=== PATIENT | female | born 1975 | race Caucasian/White ===

== ENCOUNTER 2017-09-21 18:00 | Inpatient (IN) | payer SELFPAY ==
[~2017-09-21] VITALS: Ht 160 cm; Wt 47.6 kg
[~2017-09-21 18:00] MED LIST: CIPR500T4 PO; IBUP-1116 PO; PERC5TAB12 PO; ROBA750T3 PO
[2017-09-21 18:19] VITALS: BP 130/79; PULSE 135; RESP 22; TEMP 101.5; O2SAT 99
--- NOTE | 2017-09-21 19:40 | PD ---
HPI Chief Complaint: Fever Time Seen by Provider: 18:58 Travel History International Travel<30 days: No Contact w/Intl Traveler<30days: No Traveled to known affect area: No History of Present Illness HPI 41-year-old female complains of headache, body ache, nausea vomiting diarrhea, poor appetite, left knee pain and fever. Patient has history of IV drug abuse including Dilaudid and cocaine. Last IV Dilaudid was last night and cocaine was today. Patient states that she uses all the sites in her body including neck, arms and legs. Patient states that she started having fever the past 3 days. Patient states that she has aching headache over the head. Patient denies any visual change. Recent complaint of back or neck pain. Patient denies any stiff neck. Patient denies any coughing congestion. Patient states that she had intermittent nausea vomiting diarrhea. Patient states that she has poor appetite over the last few days. Patient complained of sharp knee pain for the past 2 days. Patient denies any injury to the left knee. Patient has been taking aspirin and ibuprofen for pain and fever. [facility] Past Medical History Anxiety: Yes Depression: Yes Diminished Hearing: No ?: Not LMP: 2017 Social History Alcohol Use: No Tobacco Use: Yes (PACK A DAY ) Substance Use: Yes (IDU- COCAINE, DILAUDID ) Allergies-Medications (Allergen,Severity, Reaction): Coded Allergies: No Known Allergies (Unverified Allergy, Unknown, 09/21/17) Reported Meds & Prescriptions Reported Meds & Active Scripts Active Review of Systems General / Constitutional: Positive: Fever Eyes: No: Visual changes HENT: Positive: Headaches, Neck Pain Cardiovascular: No: Chest Pain or Discomfort Respiratory: No: Shortness of Breath Gastrointestinal: No: Abdominal Pain Genitourinary: No: Dysuria Musculoskeletal: Positive: Pain Skin: No Rash Neurologic: No: Weakness Psychiatric: No: Depression Endocrine: No: Polydipsia Hematologic/Lymphatic: No: Easy Bruising Physical Exam Narrative GENERAL: Well-nourished, well-developed patient. SKIN: Focused skin assessment warm/dry. Multiple redness areas of the arms and legs. No induration. HEAD: Normocephalic. EYES: No scleral icterus. No injection or drainage. NECK: Supple, trachea midline. No JVD or lymphadenopathy. No meningismus CARDIOVASCULAR: Regular rate and rhythm without murmurs, gallops, or rubs. RESPIRATORY: Breath sounds equal bilaterally. No accessory muscle use. GASTROINTESTINAL: Abdomen soft, non-tender, nondistended. MUSCULOSKELETAL: Patient has moderate to severe tenderness diffuse over the left knee joint. Limited range of motion of left knee joint secondary to pain. Patient has an area of redness medial aspect the left knee joint. Moderate effusion noted. BACK: Nontender without obvious deformity. No CVA tenderness. Neurologic exam: Patient is awake alert oriented 3. No obvious focal neurological deficit. Data Data Last Documented VS Vital Signs Date Time Temp Pulse Resp B/P (MAP) Pulse Ox O2 Delivery O2 Flow Rate FiO2 09/21/17 20:28 90 16 106/66 (79) 100 09/21/17 18:19 101.5 Orders Orders Electrocardiogram (09/21/17 19:12) Complete Blood Count With Diff (09/21/17 19:12) Comprehensive Metabolic Panel (09/21/17 19:12) Creatine Kinase (Cpk) (09/21/17 19:12) Troponin I (09/21/17 19:12) Prothrombin Time / Inr (Pt) (09/21/17 19:12) Act Partial Throm Time (Ptt) (09/21/17 19:12) Blood Culture (09/21/17 19:12) C-Reactive Protein (Crp) (09/21/17 19:12) Lipase (09/21/17 19:12) Urinalysis - C+S If Indicated (09/21/17 19:12) Westergren Sedimentation Rate (09/21/17 19:12) Thyroid Stimulating Hormone (09/21/17 19:12) Chest, Single Ap (09/21/17 19:12) Iv Access Insert/Monitor (09/21/17 19:12) Ecg Monitoring (09/21/17 19:12) Oximetry (09/21/17 19:12) Ed Urine Pregnancytest Poc (09/21/17 19:12) Drug Screen, Random Urine (09/21/17 19:12) Lactic Acid (09/21/17 19:12) Knee, Ltd (1 Or 2vws) (09/21/17 19:17) Ct Brain W/O Iv Contrast(Rout) (09/21/17 19:33) Sodium Chlor 0.9% 1000 Ml Inj (Ns 1000 M (09/21/17 19:45) Vancomycin Inj (Vancomycin Inj) (09/21/17 19:45) Piperacil-Tazo 3.375 Gm Premix (Zosyn 3. (09/21/17 19:45) Ketorolac Inj (Toradol Inj) (09/21/17 20:15) Diphenhydramine Inj (Benadryl Inj) (09/21/17 20:15) CKMB (09/21/17 19:25) CKMB% (09/21/17 19:25) Potassium Chloride (Kcl) (09/21/17 21:00) Ns + Kcl 20 Meq Inj (Ns + Kcl 20 Meq Inj (09/21/17 21:00) Lidocai-Epi 1%-1:100,000 Inj (Xylocaine- (09/21/17 21:00) Electrocardiogram (09/21/17 ) Synovial Fl Cell Count + Diff (09/21/17 21:29) Synovial Fluid Crystals (09/21/17 21:29) Fluid Culture And Gram Stain (09/21/17 21:29) Lidocai-Epi 1%-1:100,000 Inj (Xylocaine- (09/21/17 21:45) Lidocai-Epi 1%-1:100,000 Inj (Xylocaine- (09/21/17 21:35) Admit To Inpatient (09/21/17 ) Vital Signs (Adult) Q4H (09/21/17 22:18) Activity Oob With Assistance (09/21/17 22:18) Chief Clerk Shelter / Telemetry .CONTINUOUS (09/21/17:18) Intake + Output CAMPOS.QSHIFT (09/21/17 22:18) Diet Heart Healthy (09/22/17 Breakfast) Sodium Chlor 0.9% 1000 Ml Inj (Ns 1000 M (09/21/17 22:18) Sodium Chloride 0.9% Flush (Ns Flush) (09/21/17 22:30) Sodium Chloride 0.9% Flush (Ns Flush) (09/22/17 09:00) Ondansetron Inj (Zofran Inj) (09/21/17 22:30) Comprehensive Metabolic Panel (09/22/17 06:00) Complete Blood Count With Diff (09/22/17 06:00) Creatine Kinase (Cpk) (09/22/17 00:00) Creatine Kinase (Cpk) (09/22/17 06:00) Troponin I (09/22/17 00:00) Troponin I (09/22/17 06:00) Pt Request For Service (09/21/17 22:18) Case Management Consult (09/21/17 22:18) Scd Bilateral/Knee High CAMPOS.BID (09/21/17 22:18) Oral Bilateral/Knee High CAMPOS.QSHIFT (09/21/17 22:21) Acetaminophen (Tylenol) (09/21/17 22:30) Oxycodone (Roxicodone) (09/21/17 22:30) Oxycodone (Roxicodone) (09/21/17 22:30) Docusate Sodium-Senna (Silvia-Colace) (09/22/17 09:00) Magnesium Hydroxide Liq (Milk Of Magnesi (09/21/17 22:30) Sennosides (Senokot) (09/21/17 22:30) Bisacodyl Supp (Dulcolax Supp) (09/21/17 22:30) Lactulose Liq (Lactulose Liq) (09/21/17 22:30) Inpatient Certification (09/21/17 ) Lactic Acid (09/22/17 00:00) Admit Order (Ed Use Only) (09/21/17 22:19) Labs Laboratory Tests Test 09/21/17 19:25 09/21/17 19:35 White Blood Count 9.9 TH/MM3 Red Blood Count 4.43 MIL/MM3 Hemoglobin 11.1 GM/DL Hematocrit 32.9 % Mean Corpuscular Volume 74.3 FL Mean Corpuscular Hemoglobin 25.1 PG Mean Corpuscular Hemoglobin Concent 33.7 % Red Cell Distribution Width 14.1 % Platelet Count 201 TH/MM3 Mean Platelet Volume 9.0 FL Neutrophils (%) (Auto) 88.2 % Lymphocytes (%) (Auto) 7.4 % Monocytes (%) (Auto) 4.2 % Eosinophils (%) (Auto) 0.0 % Basophils (%) (Auto) 0.2 % Neutrophils # (Auto) 8.7 TH/MM3 Lymphocytes # (Auto) 0.7 TH/MM3 Monocytes # (Auto) 0.4 TH/MM3 Eosinophils # (Auto) 0.0 TH/MM3 Basophils # (Auto) 0.0 TH/MM3 CBC Comment DIFF FINAL Differential Comment Erythrocyte Sedimentation Rate 78 mm/hr Prothrombin Time 12.7 SEC Prothromb Time International Ratio 1.3 RATIO Activated Partial Thromboplast Time 29.9 SEC Blood Urea Nitrogen 18 MG/DL Creatinine 1.32 MG/DL Random Glucose 118 MG/DL Total Protein 8.2 GM/DL Albumin 2.4 GM/DL Calcium Level 7.9 MG/DL Alkaline Phosphatase 88 U/L Aspartate Amino Transf (AST/SGOT) 103 U/L Alanine Aminotransferase (ALT/SGPT) 40 U/L Total Bilirubin 0.5 MG/DL Sodium Level 121 MEQ/L Potassium Level 3.1 MEQ/L Chloride Level 83 MEQ/L Carbon Dioxide Level 26.7 MEQ/L Anion Gap 11 MEQ/L Estimat Glomerular Filtration Rate 45 ML/MIN Lactic Acid Level 2.8 mmol/L Total Creatine Kinase 1479 U/L Creatine Kinase MB 13.4 NG/ML Creatine Kinase MB % 0.9 % Troponin I 1.41 NG/ML C-Reactive Protein 18.00 MG/DL Lipase 285 U/L Thyroid Stimulating Hormone 3rd Gen 0.570 uIU/ML Urine Color LIGHT-YELLOW Urine Turbidity CLEAR Urine pH 6.0 Urine Specific [place] 1.005 Urine Protein TRACE mg/dL Urine Glucose (UA) NEG mg/dL Urine Ketones NEG mg/dL Urine Occult Blood SMALL Urine Nitrite NEG Urine Bilirubin NEG Urine Urobilinogen LESS THAN 2.0 MG/DL Urine Leukocyte Esterase NEG Urine RBC LESS THAN 1 /hpf Urine WBC 1 /hpf Urine Squamous Epithelial Cells 1 /hpf Urine Amorphous Sediment RARE Microscopic Urinalysis Comment CULT NOT INDICATED Urine Opiates Screen NEG Urine Barbiturates Screen NEG Urine Amphetamines Screen NEG Urine Benzodiazepines Screen NEG Urine Cocaine Screen POS Urine Cannabinoids Screen NEG MDM Medical Decision Making Medical Screen Exam Complete: Yes Emergency Medical Condition: Yes Interpretation(s) 2016 p.m. EKG show sinus tachycardia rate 105. Last Impressions Head CT 09/21/171932 Signed Impressions: Service Date/Time: Thursday, September 21, 2017 19:53 - CONCLUSION: No acute disease. Ethan Salas MD Knee X-Ray 09/21/[id number] Signed Impressions: Service Date/Time: Thursday, September 21, 2017 19:20 - CONCLUSION: Small suprapatellar knee joint effusion. Ethan Salas MD Chest X-Ray 09/21/[id number] Signed Impressions: Service Date/Time: Thursday, September 21, 2017 19:17 - CONCLUSION: No acute disease. Ethan Salas MD 2028 PM. CBC WBC 9.9. Hemoglobin 11.1 hematocrit 32.9. 88 neutrophil. Lactic acid 2.8. INR 1.3. Urine drug screen positive for cocaine. UA is negative. 2047 PM. Sodium 121. Potassium 3.1. Chloride 83. Bicarb 26.7. Creatinine 1.32. GFR 45. Lactic acid 2.8. Calcium 7.9. AST 103. Troponin 1.41. C- reactive protein 18. Drug screen positive for cocaine. 21:27 PM. Sed rate 78. Differential Diagnosis Differential diagnosis including infected lesions, septic joint, endocarditis, pneumonia, UTI, sepsis. Narrative Course 41-year-old female complains of fever, headache, neck pain, body ache, nausea vomiting diarrhea, left knee pain, body ache. History IV drug abuse. Normal saline solution 1 L IV bolus. Vancomycin 1 g IV. Zosyn 3.375 g IV. Normal saline solution with 20 KCl per liter at 1 25 cc an hour. KCl 40 mg p.o. given. I spoke with Commercial Fishing Vessel Operator to Dr. Garcia, orthopedist. I spoke with Dr. Reyes, armature connector steel division supervisor. Diagnosis Primary Impression: Septic arthritis of knee, left Qualified Codes: M00.9 - Pyogenic arthritis, unspecified Additional Impressions: Hyponatremia Hypokalemia Elevated troponin Rhabdomyolysis Qualified Codes: M62.82 - Rhabdomyolysis Sepsis Qualified Codes: A41.9 - Sepsis, unspecified organism John Mendosa MD September 21, 2017 19:40
--- NOTE | 2017-09-21 19:41 | RADRPT ---
EXAM DATE/TIME: 09/21/2017 19:17 [facility] COMPARISON: No previous studies available for comparison. INDICATIONS : Fever. MEDICAL HISTORY : Substance abuse, prior skull fracture. SURGICAL HISTORY : None. ENCOUNTER: Initial ACUITY: 1 day PAIN SCORE: 5/10 LOCATION: Bilateral chest FINDINGS: A single view of the chest demonstrates the lungs to be symmetrically aerated without evidence of mas s, infiltrate or effusion. The cardiomediastinal contours are unremarkable. Osseous structures are intact. CONCLUSION: No acute disease. Ethan Salas MD on September 21, 2017 at 19:38 Board Certified Radiologist. This report was verified electronically.
[2017-09-21] MEDS ORDERED: SODIUM CHLOR 0.9% 1000 ML INJ 1,000 ML IV ONE (19:45)
[2017-09-21] MEDS ORDERED: PIPERACIL-TAZO 3.375 GM PREMIX 50 ML IV ONE (19:45)
[2017-09-21] MEDS ORDERED: VANCOMYCIN INJ 1,000 MG in SODIUM CHLOR 0.9% 250 ML INJ 250 ML IV ONE (19:45)
--- NOTE | 2017-09-21 19:50 | RADRPT ---
EXAM DATE/TIME: 09/21/2017 19:20 [facility] COMPARISON: No previous studies available for comparison. INDICATIONS : Left knee pain. Redness of medial side of knee. MEDICAL HISTORY : Substance abuse, prior skull fracture. SURGICAL HISTORY : None. ENCOUNTER: Initial ACUITY: 3 days PAIN SCORE: 10/10 LOCATION: Left knee. FINDINGS: There is a small suprapatellar knee joint effusion. There is no acute fracture or dislocation. No sig nificant arthritic changes are noted. CONCLUSION: Small suprapatellar knee joint effusion. Ethan Salas MD on September 21, 2017 at 19:48 Board Certified Radiologist. This report was verified electronically.
--- NOTE | 2017-09-21 20:03 | RADRPT ---
EXAM DATE/TIME: 09/21/2017 19:53 [facility] COMPARISON: CT BRAIN W/O CONTRAST, March 26, 2016, 4:07. INDICATIONS : Cephalgia for three days. RADIATION DOSE: 34.94 CTDIvol (mGy) MEDICAL HISTORY : previous skull fracture SURGICAL HISTORY : None. ENCOUNTER: Initial ACUITY: 3 days PAIN SCALE: 8/10 LOCATION: Bilateral head TECHNIQUE: Multiple contiguous axial images were obtained of the head. Using automated exposure control and adj ustment of the mA and/or kV according to patient size, radiation dose was kept as low as reasonably a chievable to obtain optimal diagnostic quality images. DICOM format image data is available electro nically for review and comparison. FINDINGS: CEREBRUM: The ventricles are normal for age. No evidence of midline shift, mass lesion, hemorrhage or acute in farction. No extra-axial fluid collections are seen. POSTERIOR FOSSA: The cerebellum and brainstem are intact. The 4th ventricle is midline. The cerebellopontine angle i s unremarkable. EXTRACRANIAL: The visualized portion of the orbits is intact. SKULL: The calvaria is intact. No evidence of skull fracture. CONCLUSION: No acute disease. Ethan Salas MD on September 21, 2017 at 20:00 Board Certified Radiologist. This report was verified electronically.
[2017-09-21 20:05] LABS: AMORPHOUS SEDIMENT, URINE RARE; BILIRUBIN, URINE NEG (NEG); BLOOD, URINE SMALL (NEG); GLUCOSE,URINE NEG (NEG); KETONE, URINE NEG (NEG); NITRITE,URINE NEG (NEG); SQUAMOUS EPITHELIAL CELL URINE 1 /hpf (0-5); URINE COLOR LIGHT-YELLOW (YELLW/STRAW); URINE LEUKOCYTE ESTERASE NEG (NEG)
[2017-09-21] MEDS ORDERED: KETOROLAC TROMETHAMINE 30 MG/ML (IVP) VIAL IV PUSH ONE (20:15)
[2017-09-21] MEDS ORDERED: diphenhydrAMINE HCL 50 MG/ML VIAL IV PUSH ONE (20:15)
[2017-09-21 20:16] LABS: INTERNATIONAL NORMALIZED RATIO 1.3 RATIO; PROTHROMBIN TIME - PATIENT 12.7 SEC (9.8-11.6)
[2017-09-21 20:19] LABS: ALBUMIN 2.4 GM/DL (3.4-5.0); ALT (GPT) 40 U/L (10-53); AST (GOT) 103 U/L (15-37); BICARBONATE 26.7 MEQ/L (21.0-32.0); BLOOD UREA NITROGEN 18 MG/DL (7-18); CALCIUM 7.9 MG/DL (8.5-10.1); CHLORIDE 83 MEQ/L (98-107); CREATININE 1.32 MG/DL (0.50-1.00); GLOMERULAR FILTRATION RATE 45 ML/MIN (>89); GLUCOSE,RANDOM 118 MG/DL (74-106)
[2017-09-21 20:20] LABS: AUTOMATED NEUTROPHIL # 8.7 TH/MM3 (1.8-7.7); BASOPHIL % 0.2 % (0.0-2.0); HEMATOCRIT 32.9 % (35.0-46.0); HEMOGLOBIN 11.1 GM/DL (11.6-15.3); LYMPH % 7.4 % (9.0-44.0); LYMPHOCYTE # 0.7 TH/MM3 (1.0-4.8); MEAN CELL VOLUME 74.3 FL (80.0-100.0); MEAN CORPUSCULAR HEMOGLOBIN 25.1 PG (27.0-34.0); MEAN CORPUSCULAR HGB CONC 33.7 % (32.0-36.0); MONO % 4.2 % (0.0-8.0); MONOCYTE # 0.4 TH/MM3 (0-0.9); NEUT % 88.2 % (16.0-70.0); PLATELET COUNT 201 TH/MM3 (150-450); RED BLOOD COUNT 4.43 MIL/MM3 (4.00-5.30); RED CELL DISTRIBUTION WIDTH 14.1 % (11.6-17.2); WHITE BLOOD COUNT 9.9 TH/MM3 (4.0-11.0)
[2017-09-21 20:28] VITALS: BP 106/66; PULSE 90; RESP 16; O2SAT 100
[2017-09-21 20:34] LABS: ALKALINE PHOSPHATASE 88 U/L (45-117); TOTAL BILIRUBIN ADULT 0.5 MG/DL (0.2-1.0); TOTAL PROTEIN 8.2 GM/DL (6.4-8.2)
[2017-09-21 20:42] LABS: SODIUM (NA) 121 MEQ/L (136-145); TROPONIN I 1.41 NG/ML (0.02-0.05)
[2017-09-21] MEDS ORDERED: POTASSIUM CHLORIDE 20 MEQ CONTROLLED RELEASE TAB PO ONE (21:00)
[2017-09-21] MEDS ORDERED: LIDOCAINE 1%/EPINEPHrine 1:100,000 SOLN 20 ML VIAL INFIL ONE ×2 (21:00→21:45)
[2017-09-21] MEDS ORDERED: LIDOCAINE 1%/EPINEPHrine 1:100,000 SOLN 30 ML VIAL ONE (21:35)
[2017-09-21] MEDS: NS + KCL 20 MEQ INJ 1,000 ML IV SCH (21:59)
--- NOTE | 2017-09-21 22:21 | HHI.HP ---
[facility] No Primary Care Physician Admission Diagnosis Diagnoses: (1) Sepsis Diagnosis: Principal (2) Septic arthritis of knee, left Diagnosis: Principal (3) Elevated troponin Diagnosis: Principal (4) Rhabdomyolysis Diagnosis: Principal (5) Hyponatremia Diagnosis: Principal (6) ANDRZEJ (acute kidney injury) Diagnosis: Principal (7) IVDU (intravenous drug user) Diagnosis: Principal Travel History International Travel<30 Days: No Contact w/Intl Traveler <30 Da: No Traveled to Known Affected Are: No History of Present Illness This is a 49-year-old female with a PMH of Tobacco Abuse and IVDU w/ Cocaine/ Dilaudid who presented to the ER w/ complaints of left knee pain, generalized malaise and fever. Admits to ongoing IVDU w/ Cocaine/Dilaudid. States left knee pain is constant, severe, 10/10, non-radiating, worse w/ movement. Demanding pain medication while in ER. On arrival, BP 130/79, HR 135, O2 sat 99 % on RA, Temp 101.5. WBC normal however elevated neutrophil count. Na 121. Creatinine 1.32, previously 0.81 on 03/25/2016. Lactic Acid 2.8. CPK 1479. Troponin 1.41. CRP 18. INR 1.3. UA negative. Urine Drug Screen positive for Cocaine. CT Head with no acute findings. Knee X-ray with small suprapatellar knee joint effusion. CXR with no acute findings. S/p knee joint aspiration in ER, noted to have purulent/cloudy drainage. S/p Vanc/Zosyn. Ortho/Cardiology consulted. No c/o chest pain or SOB Review of Systems Except as stated in HPI: all other systems reviewed are Neg ROS: 14 point review of systems otherwise negative. Past Family Social History Past Medical History PMH: Tobacco Abuse and IVDU w/ Cocaine/Dilaudid Past Surgical History PAST SURGICAL HISTORY: Left Hand Repair Allergies: Coded Allergies: No Known Allergies (Unverified Allergy, Unknown, 09/21/17) Family History PAST FAMILY HISTORY: Reviewed. No h/o DM or CAD Social History PAST SOCIAL HISTORY: Negative for alcohol. Smokes 1ppd. +IVDU Cocaine/ Dilaudid. Physical Exam Vital Signs Vital Signs Date Time Temp Pulse Resp B/P (MAP) Pulse Ox O2 Delivery O2 Flow Rate FiO2 09/21/17 20:28 90 16 106/66 (79) 100 09/21/17 18:19 101.5 135 22 130/79 (96) 99 Physical Exam PE: GENERAL: Middle-aged female who appears significantly older than stated age, restless, agitated, angry. HEENT: PERRLA, EOMI. No scleral icterus or conjunctival pallor. No lid lag or facial droop. CARDIOVASCULAR: Regular rate and rhythm. No obvious murmurs to auscultation. No chest tenderness to palpation. RESPIRATORY: No obvious rhonchi or wheezing. Clear to auscultation. Breath sounds equal bilaterally. GASTROINTESTINAL: Abdomen soft, non-tender, nondistended. BS normal. MUSCULOSKELETAL: Extremities without clubbing, cyanosis, or edema. No obvious deformities. Left knee w/ erythema/edema, decreased ROM of LLE due to pain. NEUROLOGICAL: Awake, alert and oriented x4. No focal neurologic deficits. Moving both upper and lower extremities spontaneously. Laboratory Laboratory Tests Test 09/21/17 19:25 09/21/17 19:35 White Blood Count 9.9 Red Blood Count 4.43 Hemoglobin 11.1 Hematocrit 32.9 Mean Corpuscular Volume 74.3 Mean Corpuscular Hemoglobin 25.1 Mean Corpuscular Hemoglobin Concent 33.7 Red Cell Distribution Width 14.1 Platelet Count 201 Mean Platelet Volume 9.0 Neutrophils (%) (Auto) 88.2 Lymphocytes (%) (Auto) 7.4 Monocytes (%) (Auto) 4.2 Eosinophils (%) (Auto) 0.0 Basophils (%) (Auto) 0.2 Neutrophils # (Auto) 8.7 Lymphocytes # (Auto) 0.7 Monocytes # (Auto) 0.4 Eosinophils # (Auto) 0.0 Basophils # (Auto) 0.0 CBC Comment DIFF FINAL Differential Comment Erythrocyte Sedimentation Rate 78 Prothrombin Time 12.7 Prothromb Time International Ratio 1.3 Activated Partial Thromboplast Time 29.9 Blood Urea Nitrogen 18 Creatinine 1.32 Random Glucose 118 Total Protein 8.2 Albumin 2.4 Calcium Level 7.9 Alkaline Phosphatase 88 Aspartate Amino Transf (AST/SGOT) 103 Alanine Aminotransferase (ALT/SGPT) 40 Total Bilirubin 0.5 Sodium Level 121 Potassium Level 3.1 Chloride Level 83 Carbon Dioxide Level 26.7 Anion Gap 11 Estimat Glomerular Filtration Rate 45 Lactic Acid Level 2.8 Total Creatine Kinase 1479 Creatine Kinase MB 13.4 Creatine Kinase MB % 0.9 Troponin I 1.41 C-Reactive Protein 18.00 Lipase 285 Thyroid Stimulating Hormone 3rd Gen 0.570 Urine Color LIGHT-YELLOW Urine Turbidity CLEAR Urine pH 6.0 Urine Specific [place] 1.005 Urine Protein TRACE Urine Glucose (UA) NEG Urine Ketones NEG Urine Occult Blood SMALL Urine Nitrite NEG Urine Bilirubin NEG Urine Urobilinogen LESS THAN 2.0 Urine Leukocyte Esterase NEG Urine RBC LESS THAN 1 Urine WBC 1 Urine Squamous Epithelial Cells 1 Urine Amorphous Sediment RARE Microscopic Urinalysis Comment CULT NOT INDICATED Urine Opiates Screen NEG Urine Barbiturates Screen NEG Urine Amphetamines Screen NEG Urine Benzodiazepines Screen NEG Urine Cocaine Screen POS Urine Cannabinoids Screen NEG Date/Time Source Procedure Growth Status 09/21/17 19:25 Blood Peripheral Aerobic Blood Culture Pending Received 09/21/17 19:25 Blood Peripheral Anaerobic Blood Culture Pending Received Result Diagram: 09/21/17192409/21/171924 Caprini VTE Risk Assessment Caprini VTE Risk Assessment: No/Low Risk (score <= 1) Caprini Risk Assessment Model Point Value = 1 Point Value = 2 Point Value = 3 Point Value = 5 Age 41-60 Minor surgery BMI > 25 kg/m2 Swollen legs Varicose veins or History of unexplained or recurrent spontaneous Oral contraceptives or hormone replacement Sepsis (< 1 month) Serious lung disease, including pneumonia (< 1 month) Abnormal pulmonary function Acute myocardial infarction Congestive heart failure (< 1 month) History of inflammatory bowel disease Medical patient at bed rest Age 61-74 Arthroscopic surgery Major open surgery (> 45 min) Laparoscopic surgery (> 45 min) Malignancy Confined to bed (> 72 hours) Immobilizing plaster cast Central venous access Age >= 75 History of VTE Family history of VTE Factor V Leiden Prothrombin [id number] Lupus anticoagulant Anticardiolipin antibodies Elevated serum homocysteine Heparin-induced thrombocytopenia Other congenital or acquired thrombophilia Stroke (< 1 month) Elective arthroplasty Hip, pelvis, or leg fracture Acute spinal cord injury (< 1 month) Prophylaxis Regimen Total Risk Factor Score Risk Level Prophylaxis Regimen 0-1 Low Early ambulation 2 Moderate Order ONE of the following: *Sequential Compression Device (SCD) *Heparin 5000 units SQ BID 3-4 Higher Order ONE of the following medications: *Heparin 5000 units SQ TID *Enoxaparin/Lovenox 40 mg SQ daily (WT < 150 kg, CrCl > 30 mL/min) *Enoxaparin/Lovenox 30 mg SQ daily (WT < 150 kg, CrCl > 10-29 mL/min) *Enoxaparin/Lovenox 30 mg SQ BID (WT < 150 kg, CrCl > 30 mL/min) AND/OR *Sequential Compression Device (SCD) 5 or more Highest Order ONE of the following medications: *Heparin 5000 units SQ TID (Preferred with Epidurals) *Enoxaparin/Lovenox 40 mg SQ daily (WT < 150 kg, CrCl > 30 mL/min) *Enoxaparin/Lovenox 30 mg SQ daily (WT < 150 kg, CrCl > 10-29 mL/min) *Enoxaparin/Lovenox 30 mg SQ BID (WT < 150 kg, CrCl > 30 mL/min) AND *Sequential Compression Device (SCD) Assessment and Plan Problem List: (1) Sepsis ICD Code: A41.9 - Sepsis, unspecified organism Status: Acute (2) Septic arthritis of knee, left ICD Code: M00.9 - Pyogenic arthritis, unspecified Status: Acute (3) Elevated troponin ICD Code: R74.8 - Abnormal levels of other serum enzymes Status: Acute (4) Rhabdomyolysis ICD Code: M62.82 - Rhabdomyolysis Status: Acute (5) Hyponatremia ICD Code: E87.1 - Hypo-osmolality and hyponatremia Status: Acute (6) ANDRZEJ (acute kidney injury) ICD Code: N17.9 - Acute kidney failure, unspecified (7) IVDU (intravenous drug user) ICD Code: F19.90 - Other psychoactive substance use, unspecified, uncomplicated Assessment and Plan A/P: 1. Sepsis: Temp 101.5, HR 135, Lactic Acid 2.8, Source-Septic Knee Joint. S/ p Blood Cultures, IV Vanc/Zosyn, continue IV Abx, follow up cultures, check repeat Lactic Acid. IVF 2. Left Knee Septic Joint: +erythema/edema, X-ray w/ small suprapatellar knee joint effusion, images reviewed by me, s/p knee joint aspiration in ER, + purulent drainage noted. Continue w/ treatment as above. Ortho consulted by ER physician. Will keep NPO for likely surgical intervention in am. 3. Elevated Trop: Trop 1.41, no acute EKG changes, no c/o chest pain, likely related to underlying Cocaine Abuse. Cardiology consulted, recommend to trend enzymes. Telemetry. Check serial cardiac enzymes for trend. Check Echo to eval for possible underlying endocarditis/myocarditis. 4. Rhabdomyolysis: CPK 1479, IVF for hydration, check repeat CPK for trend. 5. ANDRZEJ: Creatinine 1.32, previously 0.81 on 03/25/16. U/a negative for UTI. + Cocaine. IVF, repeat labs in am. 6. Hyponatremia: Na 121, likely due to dehydration, IVF, repeat labs. 7. IVDU: Pt counselled. Demanding pain medication. Ativan prn for withdrawal. 8. DVT Prophylaxis: SCD/Teds 9. Social work for d/c planning as needed. 10. Case discussed w/ ER physician at length, labs/records/imaging reviewed by me. Physician Certification 2 Midnight Certification Type: Admission for Inpatient Services Order for Inpatient Services The services are ordered in accordance with Medicare regulations or non- Medicare payer requirements, as applicable. In the case of services not specified as inpatient-only, they are appropriately provided as inpatient services in accordance with the 2-midnight benchmark. Estimated LOS (days): 2 days is the estimated time the patient will need to remain in the hospital, assuming treatment plan goals are met and no additional complications. Post-Hospital Plan: Not yet determined Problem Qualifiers (1) Sepsis: Qualified Codes: A41.9 - Sepsis, unspecified organism (2) Septic arthritis of knee, left: Qualified Codes: M00.9 - Pyogenic arthritis, unspecified (3) Rhabdomyolysis: Qualified Codes: M62.82 - Rhabdomyolysis Deanne Hubbard MD September 21, 2017 22:21
[2017-09-21] MEDS ORDERED: LACTULOSE SYRUP 20 GM/30 ML CUP PO PRN (22:30)
[2017-09-21] MEDS ORDERED: SODIUM CHLORIDE 0.9% FLUSH 10 ML FLUSH IV FLUSH PRN (22:30)
[2017-09-21] MEDS ORDERED: MAGNESIUM HYDROXIDE SUSP 30 ML CUP PO PRN (22:30)
[2017-09-21] MEDS ORDERED: SENNOSIDES 8.6 MG TAB PO PRN (22:30)
[2017-09-21] MEDS ORDERED: ONDANSETRON HCL 4 MG/2 ML VIAL IVP PRN (22:30)
[2017-09-21] MEDS ORDERED: BISACODYL 10 MG SUPP RECTAL PRN (22:30)
[2017-09-21] MEDS ORDERED: LORazepam 2 MG/ML VIAL IV PUSH ONE (22:45)
[2017-09-21] MEDS: SODIUM CHLOR 0.9% 1000 ML INJ 1,000 ML IV SCH (22:50)
[2017-09-22] VITALS (20 sets, daily range): BP systolic 96–147; BP diastolic 62–86; PULSE 77–122; RESP 17–36; TEMP 97.3–102.8; O2SAT 96–100
[2017-09-22 01:22] LABS: WBC, SYNOVIAL FLUID 29700 /MM3 (0-200)
[2017-09-22] MEDS: LORazepam 2 MG/ML VIAL IV PUSH PRN ×5 (02:12→22:02)
[2017-09-22] MEDS: NS + KCL 20 MEQ INJ 1,000 ML IV SCH ×3 (02:17→21:00)
[2017-09-22 03:22] LABS: AUTOMATED NEUTROPHIL # 6.1 TH/MM3 (1.8-7.7); BASOPHIL % 0.2 % (0.0-2.0); EOSINOPHIL % 0.6 % (0.0-4.0); HEMATOCRIT 31.1 % (35.0-46.0); HEMOGLOBIN 10.3 GM/DL (11.6-15.3); LYMPH % 10.2 % (9.0-44.0); LYMPHOCYTE # 0.8 TH/MM3 (1.0-4.8); MEAN CELL VOLUME 74.8 FL (80.0-100.0); MEAN CORPUSCULAR HEMOGLOBIN 24.8 PG (27.0-34.0); MEAN CORPUSCULAR HGB CONC 33.2 % (32.0-36.0); MEAN PLATELET VOLUME 8.7 FL (7.0-11.0); MONO % 8.2 % (0.0-8.0); MONOCYTE # 0.6 TH/MM3 (0-0.9); NEUT % 80.8 % (16.0-70.0); PLATELET COUNT 154 TH/MM3 (150-450); RED BLOOD COUNT 4.15 MIL/MM3 (4.00-5.30); RED CELL DISTRIBUTION WIDTH 13.9 % (11.6-17.2); WHITE BLOOD COUNT 7.5 TH/MM3 (4.0-11.0)
[2017-09-22 04:06] LABS: ALBUMIN 1.9 GM/DL (3.4-5.0); CALCIUM 7.4 MG/DL (8.5-10.1); CALCIUM-PROTEIN CORRECTED 7.6 MG/DL (8.5-10.1); CREATININE 1.05 MG/DL (0.50-1.00); TOTAL BILIRUBIN ADULT 0.3 MG/DL (0.2-1.0); TOTAL PROTEIN 6.8 GM/DL (6.4-8.2)
[2017-09-22 04:09] LABS: TROPONIN I 1.19 NG/ML (0.02-0.05)
[2017-09-22] MEDS ORDERED: GENTAMICIN SULFATE 80 MG/2 ML VIAL ONE (07:24)
[2017-09-22] MEDS ORDERED: VANCOMYCIN HCL 1000 MG VIAL ONE (07:24)
[2017-09-22] MEDS ORDERED: ceFAZolin 2 GM PREMIX 50 ML ONE (07:24)
[2017-09-22] MEDS: SODIUM CHLOR 0.9% 1000 ML INJ 1,000 ML IV SCH ×2 (08:18→18:18)
--- NOTE | 2017-09-22 08:32 | HHI.PR ---
Subjective Remarks Patient is seen bed she is sleeping on and off, moaning at times and agitated at times receiving Ativan. Not able to obtain IV, however patient has an IV now placed by vascular team with difficulty. Refusing to take medications by mouth however patient is not cooperative. Objective Vitals Vital Signs Date Time Temp Pulse Resp B/P (MAP) Pulse Ox O2 Delivery O2 Flow Rate FiO2 09/22/17 06:00 90 09/22/17 05:00 88 09/22/17 04:00 Room Air 09/22/17 04:00 99.5 86 22 111/67 (82) 96 09/22/17 04:00 86 09/22/17 03:00 85 09/22/17 02:00 77 09/22/17 01:00 79 09/22/17 00:10 09/22/17 00:00 80 09/22/17 00:00 99.0 80 22 96/62 (73) 97 09/21/17 20:28 90 16 106/66 (79) 100 09/21/17 18:19 101.5 135 22 130/79 (96) 99 I/O 09/21/17 09/21/17 09/21/17 09/22/17 09/22/17 09/22/17 07:00 15:00 23:00 07:00 15:00 23:00 Intake Total 500 ml Balance 500 ml Intake IV Total 500 ml # Voids 3 # Bowel Movements 3 Result Diagram: 09/22/17 0309 09/22/17 0309 Imaging Last Impressions Head CT 09/21/17 1933 Signed Impressions: Service Date/Time: Thursday, September 21, 2017 19:53 - CONCLUSION: No acute disease. Ethan Salas MD Knee X-Ray 09/21/171916 Signed Impressions: Service Date/Time: Thursday, September 21, 2017 19:20 - CONCLUSION: Small suprapatellar knee joint effusion. Ethan Salas MD Chest X-Ray 09/21/171911 Signed Impressions: Service Date/Time: Thursday, September 21, 2017 19:17 - CONCLUSION: No acute disease. Ethan Salas MD Objective Remarks GENERAL: Middle-aged female who appears significantly older than stated age, restless, agitated, angry, noncooperative. HEENT: PERRLA, EOMI. No scleral icterus or conjunctival pallor. No lid lag or facial droop. CARDIOVASCULAR: Regular rate and rhythm. No obvious murmurs to auscultation. No chest tenderness to palpation. RESPIRATORY: No obvious rhonchi or wheezing. Clear to auscultation. Breath sounds equal bilaterally. GASTROINTESTINAL: Abdomen soft, non-tender, nondistended. BS normal. MUSCULOSKELETAL: Extremities without clubbing, cyanosis, or edema. No obvious deformities. Left knee w/ erythema/edema, decreased ROM of LLE due to pain. NEUROLOGICAL: Awake, alert and oriented x4. No focal neurologic deficits. Moving both upper and lower extremities spontaneously. A/P Problem List: (1) Sepsis ICD Code: A41.9 - Sepsis, unspecified organism Status: Acute (2) Septic arthritis of knee, left ICD Code: M00.9 - Pyogenic arthritis, unspecified Status: Acute (3) Elevated troponin ICD Code: R74.8 - Abnormal levels of other serum enzymes Status: Acute (4) Rhabdomyolysis ICD Code: M62.82 - Rhabdomyolysis Status: Acute (5) Hyponatremia ICD Code: E87.1 - Hypo-osmolality and hyponatremia Status: Acute (6) ANDRZEJ (acute kidney injury) ICD Code: N17.9 - Acute kidney failure, unspecified (7) IVDU (intravenous drug user) ICD Code: F19.90 - Other psychoactive substance use, unspecified, uncomplicated Assessment and Plan Bacteremia/ sepsis on admission: Temp 101.5, HR 135, Lactic Acid 2.8, Source- Septic Knee Joint. S/p Blood Cultures, IV Vanc/Zosyn, continue IV Abx, follow up cultures, check repeat Lactic Acid back to normal. IVF Repeat blood cx Left Knee Septic Joint: +erythema/edema, X-ray with small suprapatellar knee joint effusion, images reviewed by me, s/p knee joint aspiration in ER, + purulent drainage noted. Continue w/ treatment as above. Ortho consulted by ER physician. Will keep NPO for likely surgical intervention in am. Agitation/ withdrawals. On ativan. Restraints Elevated Trop: Trop 1.41, no acute EKG changes, no c/o chest pain, likely related to underlying Cocaine Abuse. Cardiology consulted, recommend to trend enzymes. Telemetry. Check serial cardiac enzymes for trend. Check Echo to eval for possible underlying endocarditis/myocarditis. Rhabdomyolysis: CPK 1479, IVF for hydration, check repeat CPK for trend. ANDRZEJ: Creatinine 1.32, previously 0.81 on 03/25/16. U/a negative for UTI. + Cocaine. IVF, repeat labs in am. Hyponatremia: Na 121, likely due to dehydration, IVF, repeat labs. IVDU: Pt counselled. Demanding pain medication. Ativan prn for withdrawal. Severe protein calorie malnutrition low BMI, low albumin. Add ensure, MVT DVT Prophylaxis: SCD/Teds CM for d/c planning as needed. Discussed with pt nurse, Dr Knowles ID Problem Qualifiers (1) Sepsis: Qualified Codes: A41.9 - Sepsis, unspecified organism (2) Septic arthritis of knee, left: Qualified Codes: M00.9 - Pyogenic arthritis, unspecified (3) Rhabdomyolysis: Qualified Codes: M62.82 - Rhabdomyolysis Debby Rodas MD September 22, 2017 08:32
[2017-09-22] MEDS ORDERED: POTASSIUM CHLORIDE 20 MEQ CONTROLLED RELEASE TAB PO ONE (08:45)
[2017-09-22] MEDS ORDERED: CALCIUM GLUCONATE INJ 1 GM in DEXTROSE 5% IN WATER 100ML INJ 100 ML IV ONE ×2 (09:00)
[2017-09-22] MEDS: DOCUSATE SODIUM 50 MG/SENNA 8.6 MG TAB PO SCH ×2 (09:00→20:46)
[2017-09-22] MEDS: SODIUM CHLORIDE 0.9% FLUSH 10 ML FLUSH IV FLUSH SCH ×2 (09:00→20:46)
[2017-09-22] MEDS: MULTIVITAMIN TAB PO SCH (09:00)
[2017-09-22] MEDS: ASPIRIN EC 81 MG TABEC PO SCH (09:30)
--- NOTE | 2017-09-22 09:40 | MB ---
cc: Shady Reyes MD DATE: 09/22/2017 REASON FOR CONSULTATION: Elevated troponin, likely endocarditis. HISTORY OF PRESENT ILLNESS: The patient is a 41-year-old unfortunate woman who has a history of IVDU and presents with knee pain. The patient's blood cultures have come back positive for gram positive cocci and by history it is almost certain that she has endocarditis. The patient's troponins are also elevated. The patient is very agitated and alternates between refusing to speak to us and swearing/crying/acting out and agitated fashion and no history is obtainable. PAST MEDICAL HISTORY: IV drug use. PHYSICAL EXAMINATION: VITAL SIGNS: Temperature 101.5, pulse 90, respiratory rate 22, BP 111/57, sating 96% on room air. GENERAL: Cachectic woman appearing much older than her stated age, without teeth, generally consistent with chronic IV drug use. NECK: No JVD. LUNGS: Clear to auscultation bilaterally. The remainder of the exam had to be deferred due to the patient's significant agitation. CURRENT MEDICATIONS: IV Ativan. She has had 1 dose of cefazolin and vancomycin. ALLERGIES: NO KNOWN DRUG ALLERGIES. LABORATORY DATA: White count 7.5, hematocrit 31.1, platelets 154. Sodium 136, potassium 3.3, chloride 99, bicarbonate 29, BUN 17, creatinine 1.05. Troponin 1.41 down to 1.19 with elevated CK and CK-MBs as well. EKG shows sinus rhythm without any acute ST or T-wave changes. Head CT showed no acute disease. Knee x-ray shows a suprapatellar joint effusion. Chest x-ray showed no acute disease. ASSESSMENT AND PLAN: 1. Likely endocarditis with elevated troponin. The patient seems to have had a non-ST elevation ME at some point, though troponins are trending downward so it is difficult to know exactly when this happened. Her EKG is currently nonischemic. It is really difficult to tell if she has any ischemic symptoms due to her severe agitation, given her very poor mental status and very dismal prognosis at this point I would not consider her a candidate for invasive coronary intervention. 2. Sepsis, likely endocarditis. The patient almost certainly has endocarditis given what seems to be distal embolization of bacteria to the knee and her bacteremia. we can try to get a few pictures transthoracically if she remains still, but I would not consider her a candidate for ANNA due to her agitation. Unfortunately, the patient's prognosis is dismal given her ongoing drug use with what appears to be a disseminated bacteremia and probable endocarditis. I did ask Psychiatry to assess her competence as she cannot really tell us anything at this point. Likely she will need palliative care consult as well. Regardless, at this point I do not consider her a candidate for any invasive workup such as cardiac catheterization or transesophageal echocardiogram. I will sign off and be available as needed. Please call if her psychiatric or clinical condition changes. Thank you again for the opportunity to participate in the patient's care. MD NAI Ch/ZAKIYA , 09:17 AM , 09:39 AM
[2017-09-22] MEDS ORDERED: LORazepam 2 MG/ML VIAL IM ONE (10:15)
--- NOTE | 2017-09-22 10:18 | MB ---
cc: Josh Garcia MD DATE: 09/22/2017 CHIEF COMPLAINT: Left knee pain CONSULTING PHYSICIAN: Dr. uHbbard. HISTORY OF PRESENT ILLNESS: Ana Laura is a 41-year-old female who presented to the emergency room complaining of left knee pain, general malaise, and fever. She has a history of IV drug use. She uses cocaine and Dilaudid. She states that she has had increasing left knee pain. She does not recall a specific injury. She was demanding pain medication in the emergency room. She is currently on the cardiac floor. She is awake and answers some questions appropriately. She is not sure how long the knee has been hurting. She states that it has been hurting for at least several days. PAST MEDICAL HISTORY: Tobacco abuse and IV drug use. PAST SURGICAL HISTORY: Left hand repair. ALLERGIES: NONE. MEDICATIONS: Please see EMR for complete list of inpatient medications. FAMILY HISTORY: Noncontributory. She denies any familial medical problems. SOCIAL HISTORY: The patient denies alcohol. She smokes a pack a day. She uses IV drugs including cocaine and Dilaudid. REVIEW OF SYSTEMS: The patient denies headache, visual changes, neck pain, chest pain, nausea, vomiting, recent weight loss or numbness or tingling of the extremities. She complains of left leg and knee pain. She has subjectively had some fevers recently. LABORATORY DATA: The patient has white blood cell count of 7.5, hematocrit of 31, and platelet count of 154. INR is 1.3. Aspiration of left knee reveals white blood cell count of 29,000 white blood cells with no crystals seen. IMAGING STUDIES: X-rays of the left knee were reviewed. X-rays reveal no obvious fracture or dislocation. PHYSICAL EXAMINATION: GENERAL: The patient is a thin 41-year-old female who appears older than stated age. She is awake and alert. VITAL SIGNS: Temperature 99.5, pulse 86, respirations 22, blood pressure 111/67, O2 saturation 96% on room air. HEENT: Head: The patient is normocephalic. Pupils are equal. NECK: Soft, nontender. The trachea is midline. ABDOMEN: Soft, nontender, and nondistended. EXTREMITIES: Examination of bilateral upper extremities reveals no obvious pain or deformity with shoulder, elbow or wrist motion. She has good cap refill in her fingers. She has radial pulses palpable bilaterally. Examination of right leg reveals no pain with hip, knee or ankle motion. Skin is intact. Dorsalis pedis pulse is palpable. Sensation intact. Examination of left leg reveals no pain with hip or ankle motion. Examination of her knee reveals range of motion from 20 degrees up to 120 degrees. She does have some mild discomfort with knee range of motion. There is no significant swelling around the knee. There is no palpable effusion. Skin is intact. IMPRESSION: 1. Tobacco dependence. 2. Intravenous drug use. 3. Positive blood cultures secondary to IV drug use. 4. Left knee pain. PLAN: At this point, I will continue to monitor the patient's cultures from fluid of her left knee. At this point, the Gram stain is negative. Clinically, I do not see any signs of palpable effusion. If cultures are positive, the patient will need an arthrotomy with irrigation and debridement of left knee. If cultures are negative, I would recommend continuation of antibiotics. A mid-level provider in my office, nurse practitioner or PA, may see this patient on a follow-up basis and continue to implement the objective of this plan including: Starting or adjusting medications, injections of muscle, tendon, bursa or joints, cast application, orthotic or brace application, physical therapy, further radiographic studies including x-ray, MRI, CT, ultrasounds or bone scan, vascular studies, neurologic studies, or other specialist consultations, and proceeding with surgical management as appropriate. Josh MD VIOLETTE Harris/CRESCENCIO , 09:58 AM , 10:17 AM
--- NOTE | 2017-09-22 11:49 | PD.ORT.PN ---
Subjective Subjective Remarks left knee pain and swelling. Objective Vitals Vital Signs Date Time Temp Pulse Resp B/P (MAP) Pulse Ox O2 Delivery O2 Flow Rate FiO2 09/22/17 11:00 100.3 110 36 147/86 (106) 100 09/22/17 06:00 90 09/22/17 05:00 88 09/22/17 04:00 Room Air 09/22/17 04:00 99.5 86 22 111/67 (82) 96 09/22/17 04:00 86 09/22/17 03:00 85 09/22/17 02:00 77 09/22/17 01:00 79 09/22/17 00:10 09/22/17 00:00 80 09/22/17 00:00 99.0 80 22 96/62 (73) 97 09/21/17 20:28 90 16 106/66 (79) 100 09/21/17 18:19 101.5 135 22 130/79 (96) 99 I/O 09/21/17 09/21/17 09/21/17 09/22/17 09/22/17 09/22/17 07:00 15:00 23:00 07:00 15:00 23:00 Intake Total 500 ml Balance 500 ml Intake IV Total 500 ml # Voids 3 # Bowel Movements 3 Result Diagram: 09/22/17 0309 09/22/17 0309 Other Results Laboratory Tests Test 09/21/17 19:25 Prothromb Time International Ratio 1.3 RATIO Prothrombin Time 12.7 SEC (9.8-11.6) Imaging Last [address] 09/21/171932 Signed Impressions: Service Date/Time: Thursday, September 21, 2017 19:53 - CONCLUSION: No acute disease. Ethan Salas MD Knee X-Ray 09/21/171916 Signed Impressions: Service Date/Time: Thursday, September 21, 2017 19:20 - CONCLUSION: Small suprapatellar knee joint effusion. Ethan Salas MD Chest X-Ray 09/21/171911 Signed Impressions: Service Date/Time: Thursday, September 21, 2017 19:17 - CONCLUSION: No acute disease. Ethan Salas MD Assessment & Plan Assessment and Plan 1) Left Knee pain and swelling -knee aspirate is neg for organisms thus far -will cancel surgery for today -will monitor aspirate. if grows anything, will proceed with arthrotomy -resume diet Jacques Nina/First [facility] DUMONT September 22, 2017 11:49
--- NOTE | 2017-09-22 12:06 | EKG ---
Date Performed: 09/21/2017 Time Performed: 19:37:41 PTAGE: 41 years EKG: SINUS TACHYCARDIA WITH SHORT FL INTERVAL MINIMAL VOLTAGE CRITERIA FOR LVH, CONSIDER NORMAL VARIANT ABNORMAL RHYTHM ECG NO PREVIOUS TRACING DOCTOR: Shady Reyes Interpretating Date/Time 09/22/2017 12:04:30
--- NOTE | 2017-09-22 12:11 | PD.PSY.CON ---
Provisional Diagnosis Admission Date September 21, 2017 at 22:22 [place]. Delirium, polysubstance abuse, substance-induced mood disorder History of Present Illness Service Psychiatry Consult Requested By Attending MD Reason for Consult Assessment Primary Care Physician No Primary Care Physician HPI Patient is a 41-year-old white female admitted with a history of multiple drug abuse intravenous drug use with sepsis and altered mental status. Urine toxicology positive for cocaine. Of interest patient was seen in consultation on 03/25/[address] Pino at that time urine toxicology was positive for opiates and amphetamines and benzodiazepines his diagnosis was polysubstance abuse. At this time patient is irritable refusing treatment for her threatening significant medical and possibly surgical problems. Patient has been given Ativan 1 mg every 2 hours consideration of her polysubstance abuse. That included opiates and benzodiazepines and cocaine. Patient seen in her room with nurse present throughout session she is thin and slender markedly disheveled and appears significantly older than his stated age. She is somewhat sedated to arousable to irritable and angry and quite profane. Patient is unwilling to cooperate in any way with my assessment. However patient is obviously altered mental status and does not have capacity to make any decisions concerning her care. Less I would recommend that a healthcare surrogate be appointed to help bleed the treatment for this lady. I would suggest discontinuation of the scheduled Ativan as the disorder and initiation of the ciwa protocol. I would have Dr. Pino reconsult with this patient tomorrow hopefully she will be of a somewhat more cooperative oriented condition. Review of Systems ROS Limitations: Clinical Condition, Altered Mental Status, Uncooperative, Combative Past Family Social History Coded Allergies: No Known Allergies (Unverified Allergy, Unknown, 09/21/17) Discontinued Reported Medications Ibuprofen (Advil 200 Mg Tab) 200 Mg Tab, 200 MG PO ONCE, #1 TAB 10/19/13 Oxycodone-Acetaminophen 5-325 mg (Percocet 5-325 mg) 5 Mg/325 Mg Tab, 1 TAB PO Q4H, TAB 10/19/13 Discontinued Scripts Methocarbamol (Robaxin-750) 750 Mg Tab, 750 MG PO TID, #20 TAB Prov:AVINASH ZHENG M.D. 10/19/13 Ciprofloxacin Hcl (Cipro) 500 Mg Tab, 500 MG PO BID for 5 Days, TAB Prov:AVINASH ZHENG M.D. 10/19/13 Current Medications Medications (Trade) Dose Ordered Sig/Radha Route Start Time Stop Time Status Last Admin Potassium Chloride/Sodium Chloride 1,000 ml @ 125 mls/hr Q8H IV 09/21/17 21:00 09/22/17 02:17 Sodium Chloride 1,000 ml @ 100 mls/hr Q10H IV 09/21/17 22:18 09/21/17 22:50 (NS Flush) 2 ml UNSCH PRN IV FLUSH 09/21/17 22:30 (NS Flush) 2 ml BID IV FLUSH 09/22/17 09:00 (Zofran Inj) 4 mg Q6H PRN IVP 09/21/17 22:30 (Tylenol) 650 mg Q6H PRN PO 09/21/17 22:30 (Roxicodone) 10 mg Q4H PRN PO 09/21/17 22:30 09/21/17 22:50 (Roxicodone) 5 mg Q4H PRN PO 09/21/17 22:30 (Silvia-Colace) 1 tab BID PO 09/22/17 09:00 (Milk Of Magnesia Liq) 30 ml Q12H PRN PO 09/21/17 22:30 (Senokot) 17.2 mg Q12H PRN PO 09/21/17 22:30 (Dulcolax Supp) 10 mg DAILY PRN RECTAL 09/21/17 22:30 (Lactulose Liq) 30 ml DAILY PRN PO 09/21/17 22:30 (Ativan Inj) 1 mg Q2H PRN IV PUSH 09/22/17 00:00 09/22/17 06:28 (Theragran) 1 tab DAILY PO 09/22/17 09:00 (Ecotrin Ec) 81 mg DAILY PO 09/22/17 09:30 Family Psych History Unknown at this time due to patient's altered mental status Social History It appears patient is Patient's Strengths (min. 2) Patient able access healthcare Physical Exam Please see [facility] assessments Vital Signs Vital Signs Date Time Temp Pulse Resp B/P (MAP) Pulse Ox O2 Delivery O2 Flow Rate FiO2 09/22/17 11:00 100.3 110 36 147/86 (106) 100 09/22/17 04:00 Room Air I/O 09/22/17 09/22/17 09/23/17 08:00 16:00 00:00 Intake Total 500 ml Balance 500 ml Lab Results Test 09/21/17 19:25 09/21/17 19:35 09/21/17 21:57 09/22/17 03:09 White Blood Count 9.9 TH/MM3 7.5 TH/MM3 Red Blood Count 4.43 MIL/MM3 4.15 MIL/MM3 Hemoglobin 11.1 GM/DL 10.3 GM/DL Hematocrit 32.9 % 31.1 % Mean Corpuscular Volume 74.3 FL 74.8 FL Mean Corpuscular Hemoglobin 25.1 PG 24.8 PG Mean Corpuscular Hemoglobin Concent 33.7 % 33.2 % Red Cell Distribution Width 14.1 % 13.9 % Platelet Count 201 TH/MM3 154 TH/MM3 Mean Platelet Volume 9.0 FL 8.7 FL Neutrophils (%) (Auto) 88.2 % 80.8 % Lymphocytes (%) (Auto) 7.4 % 10.2 % Monocytes (%) (Auto) 4.2 % 8.2 % Eosinophils (%) (Auto) 0.0 % 0.6 % Basophils (%) (Auto) 0.2 % 0.2 % Neutrophils # (Auto) 8.7 TH/MM3 6.1 TH/MM3 Lymphocytes # (Auto) 0.7 TH/MM3 0.8 TH/MM3 Monocytes # (Auto) 0.4 TH/MM3 0.6 TH/MM3 Eosinophils # (Auto) 0.0 TH/MM3 0.0 TH/MM3 Basophils # (Auto) 0.0 TH/MM3 0.0 TH/MM3 CBC Comment DIFF FINAL DIFF FINAL Differential Comment Erythrocyte Sedimentation Rate 78 mm/hr Prothrombin Time 12.7 SEC Prothromb Time International Ratio 1.3 RATIO Activated Partial Thromboplast Time 29.9 SEC Blood Urea Nitrogen 18 MG/DL 17 MG/DL Creatinine 1.32 MG/DL 1.05 MG/DL Random Glucose 118 MG/DL 90 MG/DL Total Protein 8.2 GM/DL 6.8 GM/DL Albumin 2.4 GM/DL 1.9 GM/DL Calcium Level 7.9 MG/DL 7.4 MG/DL Alkaline Phosphatase 88 U/L 69 U/L Aspartate Amino Transf (AST/SGOT) 103 U/L 71 U/L Alanine Aminotransferase (ALT/SGPT) 40 U/L 34 U/L Total Bilirubin 0.5 MG/DL 0.3 MG/DL Sodium Level 121 MEQ/L 136 MEQ/L Potassium Level 3.1 MEQ/L 3.3 MEQ/L Chloride Level 83 MEQ/L 99 MEQ/L Carbon Dioxide Level 26.7 MEQ/L 29.0 MEQ/L Anion Gap 11 MEQ/L 8 MEQ/L Estimat Glomerular Filtration Rate 45 ML/MIN 58 ML/MIN Lactic Acid Level 2.8 mmol/L 1.9 mmol/L Total Creatine Kinase 1479 U/L 850 U/L Creatine Kinase MB 13.4 NG/ML 13.0 NG/ML Creatine Kinase MB % 0.9 % 1.5 % Troponin I 1.41 NG/ML 1.19 NG/ML C-Reactive Protein 18.00 MG/DL Lipase 285 U/L Thyroid Stimulating Hormone 3rd Gen 0.570 uIU/ML Urine Color LIGHT-YELLOW Urine Turbidity CLEAR Urine pH 6.0 Urine Specific [place] 1.005 Urine Protein TRACE mg/dL Urine Glucose (UA) NEG mg/dL Urine Ketones NEG mg/dL Urine Occult Blood SMALL Urine Nitrite NEG Urine Bilirubin NEG Urine Urobilinogen LESS THAN 2.0 MG/DL Urine Leukocyte Esterase NEG Urine RBC LESS THAN 1 /hpf Urine WBC 1 /hpf Urine Squamous Epithelial Cells 1 /hpf Urine Amorphous Sediment RARE Microscopic Urinalysis Comment CULT NOT INDICATED Urine Opiates Screen NEG Urine Barbiturates Screen NEG Urine Amphetamines Screen NEG Urine Benzodiazepines Screen NEG Urine Cocaine Screen POS Urine Cannabinoids Screen NEG Synovial Fluid Color STRAW Synovial Fluid Appearance MARKED Synovial Fluid WBC 45435 /MM3 Synovial Fluid RBC 2700 /MM3 Synovial Fluid Neutrophils 97 % Synovial Fluid Lymphocytes 1 % Synovial Fluid Monocytes 2 % Synovial Fluid Crystals NONE Protein Corrected Calcium 7.6 MG/DL Date/Time Source Procedure Growth Status 09/21/17 19:25 Blood Peripheral Aerobic Blood Culture - Preliminary Gram Positive Cocci Resulted 09/21/17 19:25 Anaerobic Blood Culture - Preliminary Gram Positive Cocci Resulted 09/21/17 21:57 Fluid Synovial Fluid Gram Stain - Final Resulted 09/21/17 21:57 Fluid Synovial Fluid Body Fluid Culture Pending Resulted Mental Status Examination Appearance: Disheveled Consciousness: Lethargic Orientation: Person Motor Activity: Other (Patient in bed) Speech: Hesitant, Other (Irritable and profane) Language: Other (Disorganized) Fund of Knowledge: Poor Attention and Concentration: Easily Distracted Memory: Impaired Mood: Angry, Oppositional, Anxious, Irritable Affect: Other (Decreased range and intensity) Thought Process & Associations: Disorganized Thought Content: Other (Disorganized) Hallucination Type: None (Difficult to ascertain due to patient's altered mental status) Delusion Type: None (Difficult to ascertain due to patient's altered mental status) Suicidal Ideation: No (Difficult to ascertain due to patient's altered mental status) Suicidal Plan: No Suicidal Intention: No Homicidal Ideation: No Homicidal Plan: No Homicidal Intention: No Insight: Poor Judgment: Poor Assessment & Plan Problem List: (1) Delirium due to conditions classified elsewhere ICD Codes: F05 - Delirium due to known physiological condition (2) Polysubstance dependence ICD Codes: F19.20 - Other psychoactive substance dependence, uncomplicated Status: Acute (3) Substance induced mood disorder ICD Codes: F19.94 - Other psychoactive substance use, unspecified with psychoactive substance-induced mood disorder Status: Acute Assessment & Plan Estimated LOS: days Radames Godinez MD September 22, 2017 12:11
--- NOTE | 2017-09-22 12:44 | PD.ID.CON ---
History of Present Illness Service Infectious disease Consult Requested By Hospitalist service Reason for Consult Evaluation and management of sepsis in known IVDU Primary Care Physician No Primary Care Physician Diagnoses: History of Present Illness Patient seen and examined on behalf of Dr. Knowles This is a 41yr old female with a past medical history of IVDU with cocaine and Dilaudid who presented to [facility] ED with complaints of left knee pain, generalized malaise and fever. Patient found to have sepsis with elevated temperature 101.5, tachycardia with HR 135, elevated lactic acid of 2.8 and source of septic knee joint. UDS was positive for cocaine. Xray of the left knee revealed suprapatellar knee joint effusion. She underwent left knee joint aspiration in the ED with purulent fluid removed with synovial fluid with 29, 700 WBC and 97 neutrophils. Gram stain shows moderate WBCs and no organisms. Patient was started on IV Vancomycin and Zosyn. Patient was seen in consultation by orthopedics who had considered surgical intervention but have decided to monitor aspirate due to no growth of organisms before proceeding with arthrotomy. She was also noted to have elevated troponins and was seen in consultation by cardiology who is concerned about possible endocarditis and has ordered a 2D echocardiogram. Blood cultures were obtained and grew GPC in 3/4 bottles and Group A Beta Strep in 1/4 bottles. Patient has been seen by psychiatry for delirium with altered mental status secondary to polysubstance abuse and sepsis and has deemed her lacking capacity to make her own medical decisions. Infectious disease has been consulted for evaluation and management of sepsis and bacteremia. Her most recent vital signs are significant for fever of 100.3 , tachycardia with HR of 110 and RR 36. Lactic acid this am was 1.9 and white count was WNL. ESR elevated at 76 and CRP was 18. Patient seen and examination attempted but patient appears lethargic and uncooperative with exam. She will not answer any questions or follow any commands. With attempts at tactile stimuli, she uses profanity and yells to "leave me the fuck alone". (Viji Camilo) Review of Systems Attempted 10 point review of systems but unable to obtain secondary to patients refusal to cooperate with exam (Viji Camilo) Past Family Social History Allergies: Coded Allergies: No Known Allergies (Unverified Allergy, Unknown, 09/21/17) Past Medical History IVDU Past Surgical History Per review of EMR, left hand repair Reported Medications None Active Ordered Medications IV Zosyn IV Vancomycin Current Medications Medications (Trade) Dose Ordered Sig/Radha Route Start Time Stop Time Status Last Admin Potassium Chloride/Sodium Chloride 1,000 ml @ 125 mls/hr Q8H IV 09/21/17 21:00 09/22/17 02:17 Sodium Chloride 1,000 ml @ 100 mls/hr Q10H IV 09/21/17 22:18 09/21/17 22:50 (NS Flush) 2 ml UNSCH PRN IV FLUSH 09/21/17 22:30 (NS Flush) 2 ml BID IV FLUSH 09/22/17 09:00 (Zofran Inj) 4 mg Q6H PRN IVP 09/21/17 22:30 (Tylenol) 650 mg Q6H PRN PO 09/21/17 22:30 (Roxicodone) 10 mg Q4H PRN PO 09/21/17 22:30 09/21/17 22:50 (Roxicodone) 5 mg Q4H PRN PO 09/21/17 22:30 (Silvia-Colace) 1 tab BID PO 09/22/17 09:00 (Milk Of Magnesia Liq) 30 ml Q12H PRN PO 09/21/17 22:30 (Senokot) 17.2 mg Q12H PRN PO 09/21/17 22:30 (Dulcolax Supp) 10 mg DAILY PRN RECTAL 09/21/17 22:30 (Lactulose Liq) 30 ml DAILY PRN PO 09/21/17 22:30 (Ativan Inj) 1 mg Q2H PRN IV PUSH 09/22/17 00:00 09/22/17 06:28 (Theragran) 1 tab DAILY PO 09/22/17 09:00 (Ecotrin Ec) 81 mg DAILY PO 09/22/17 09:30 Family History Unable to obtain from patient Social History Unable to obtain from patient. Per review of EMR, patient smokes 1ppd. No alcohol use. Positive for IVDU with cocaine and Dilaudid. (Viji Camilo) Physical Exam Vital Signs Vital Signs Date Time Temp Pulse Resp B/P (MAP) Pulse Ox O2 Delivery O2 Flow Rate FiO2 09/22/17 11:00 100.3 110 36 147/86 (106) 100 09/22/17 06:00 90 09/22/17 05:00 88 09/22/17 04:00 Room Air 09/22/17 04:00 99.5 86 22 111/67 (82) 96 09/22/17 04:00 86 09/22/17 03:00 85 09/22/17 02:00 77 09/22/17 01:00 79 09/22/17 00:10 09/22/17 00:00 80 09/22/17 00:00 99.0 80 22 96/62 (73) 97 09/21/17 20:28 90 16 106/66 (79) 100 09/21/17 18:19 101.5 135 22 130/79 (96) 99 Physical Exam GENERAL: This is a thin cachetic unkempt female patient who appears much older than stated age, in no apparent distress. Patient will not cooperate with exam, will not follow commands, will not open her eyes, will not respond to any questioning except to say "leave me the fuck alone". Limited exam only. SKIN: No obvious rashes, ecchymoses or lesions. Warm and dry. HEAD: Atraumatic. Normocephalic. No temporal or scalp tenderness. EYES: Patient will not open her eyes, keeps them closed tight when attempting to assess pupils. ENT: Nose without bleeding or purulent drainage. Airway patent. NECK: Trachea midline. CARDIOVASCULAR: Tachycardic without murmurs, gallops, or rubs. RESPIRATORY: Poor effort. Clear to auscultation. Breath sounds equal bilaterally. No wheezes, rales, or rhonchi. GASTROINTESTINAL: Abdomen soft, non-tender, nondistended. MUSCULOSKELETAL: Extremities without clubbing, cyanosis, or edema. No joint tenderness, effusion, or edema noted. No calf tenderness. NEUROLOGICAL: Appears lethargic. Unable to adequately assess. PSYCHIATRIC: Uncooperative. Angry mood. Profane. PIV with no e/o infection Laboratory Laboratory Tests Test 09/21/17 19:25 09/21/17 19:35 09/21/17 21:57 09/22/17 03:09 White Blood Count 9.9 7.5 Red Blood Count 4.43 4.15 Hemoglobin 11.1 10.3 Hematocrit 32.9 31.1 Mean Corpuscular Volume 74.3 74.8 Mean Corpuscular Hemoglobin 25.1 24.8 Mean Corpuscular Hemoglobin Concent 33.7 33.2 Red Cell Distribution Width 14.1 13.9 Platelet Count 201 154 Mean Platelet Volume 9.0 8.7 Neutrophils (%) (Auto) 88.2 80.8 Lymphocytes (%) (Auto) 7.4 10.2 Monocytes (%) (Auto) 4.2 8.2 Eosinophils (%) (Auto) 0.0 0.6 Basophils (%) (Auto) 0.2 0.2 Neutrophils # (Auto) 8.7 6.1 Lymphocytes # (Auto) 0.7 0.8 Monocytes # (Auto) 0.4 0.6 Eosinophils # (Auto) 0.0 0.0 Basophils # (Auto) 0.0 0.0 CBC Comment DIFF FINAL DIFF FINAL Differential Comment Erythrocyte Sedimentation Rate 78 Prothrombin Time 12.7 Prothromb Time International Ratio 1.3 Activated Partial Thromboplast Time 29.9 Blood Urea Nitrogen 18 17 Creatinine 1.32 1.05 Random Glucose 118 90 Total Protein 8.2 6.8 Albumin 2.4 1.9 Calcium Level 7.9 7.4 Alkaline Phosphatase 88 69 Aspartate Amino Transf (AST/SGOT) 103 71 Alanine Aminotransferase (ALT/SGPT) 40 34 Total Bilirubin 0.5 0.3 Sodium Level 121 136 Potassium Level 3.1 3.3 Chloride Level 83 99 Carbon Dioxide Level 26.7 29.0 Anion Gap 11 8 Estimat Glomerular Filtration Rate 45 58 Lactic Acid Level 2.8 1.9 Total Creatine Kinase 1479 850 Creatine Kinase MB 13.4 13.0 Creatine Kinase MB % 0.9 1.5 Troponin I 1.41 1.19 C-Reactive Protein 18.00 Lipase 285 Thyroid Stimulating Hormone 3rd Gen 0.570 Urine Color LIGHT-YELLOW Urine Turbidity CLEAR Urine pH 6.0 Urine Specific Morrice 1.005 Urine Protein TRACE Urine Glucose (UA) NEG Urine Ketones NEG Urine Occult Blood SMALL Urine Nitrite NEG Urine Bilirubin NEG Urine Urobilinogen LESS THAN 2.0 Urine Leukocyte Esterase NEG Urine RBC LESS THAN 1 Urine WBC 1 Urine Squamous Epithelial Cells 1 Urine Amorphous Sediment RARE Microscopic Urinalysis Comment CULT NOT INDICATED Urine Opiates Screen NEG Urine Barbiturates Screen NEG Urine Amphetamines Screen NEG Urine Benzodiazepines Screen NEG Urine Cocaine Screen POS Urine Cannabinoids Screen NEG Synovial Fluid Color STRAW Synovial Fluid Appearance MARKED Synovial Fluid WBC 32875 Synovial Fluid RBC 2700 Synovial Fluid Neutrophils 97 Synovial Fluid Lymphocytes 1 Synovial Fluid Monocytes 2 Synovial Fluid Crystals NONE Protein Corrected Calcium 7.6 Date/Time Source Procedure Growth Status 09/21/17 19:25 Blood Peripheral Aerobic Blood Culture - Preliminary Gram Positive Cocci Resulted 09/21/17 19:25 Anaerobic Blood Culture - Preliminary Gram Positive Cocci Resulted 09/21/17 21:57 Fluid Synovial Fluid Gram Stain - Final Resulted 09/21/17 21:57 Fluid Synovial Fluid Body Fluid Culture Pending Resulted (Viji Camilo) Result Diagram: 09/22/17 0309 09/22/17 030 Imaging Last Impressions Head CT 09/21/171932 Signed Impressions: Service Date/Time: Thursday, September 21, 2017 19:53 - CONCLUSION: No acute disease. Ethan Salas MD Knee X-Ray 09/21/171916 Signed Impressions: Service Date/Time: Thursday, September 21, 2017 19:20 - CONCLUSION: Small suprapatellar knee joint effusion. Ethan Salas MD Chest X-Ray 09/21/171911 Signed Impressions: Service Date/Time: Thursday, September 21, 2017 19:17 - CONCLUSION: No acute disease. Ethan Salas MD (Viji Camilo) Assessment and Plan Assessment and Plan Sepsis with fever 100.3, RR 36, tachycardia 110 and suspected source of septic left knee joint and probable endocarditis GPC bacteremia Acute metabolic encephalopathy secondary to polysubstance abuse and sepsis Delirium -evaluated by psychiatry and deemed to lack capacity for own medical decision making [id number] suspect secondary to sepsis Elevated troponins -evaluated by cardiology - likely NSTEMI but not a candidate for invasive coronary intervention, likely endocarditis -2D echo ordered IVDU -UDS positive for cocaine -per review of admission H/P, patient admitted to IV use of Dilaudid and Cocaine Hyponatremia Hypokalemia Hypocalcemia RECOMMENDATIONS: Consult palliative care to address goals of care Continue on IV Zosyn and Vancomycin Repeat BCX x 2 follow up on final blood culture results Obtain RPR, HIV and Hepatitis profile Monitor clinically Will continue to follow along with you (Viji Camilo) Assessment and Plan The exam, history, and the medical decision-making described in the above note were completed with the assistance of the mid-level provider. I reviewed and agree with the findings presented. I attest that I had a [id number] encounter with the patient on the same day, and personally performed and documented my assessment and findings in the medical record. Sepsis Strep bacteremia possible endocarditis. Left knee septic arthritis. acute metabolic encephalopathy: infection, cocaine. acute renal failure: prerenal, sepsis. Exam combative Left knee mild warmth, no induration, ROM ok. Track recinos. No neck stiffness Recs DC Zosyn IV Dc Vanco IV Start Ceftriaxone IV Start Vanco IV (target 15-20) Follow 2 D ECHO Follow cultures Follow clinically. follow knee fluid cultures to decide if surgery needed. palliative care consult: to assess POA and goals of care. Psych consult to assess competency in am once acute delirium resolved. (Agnes Knowles MD) Viji Camilo September 22, 2017 12:44 Agnes Knowles MD September 22, 2017 16:53
[2017-09-22] MEDS ORDERED: FLUMAZENIL 0.5 MG/5 ML VIAL IV PUSH PRN (15:00)
[2017-09-22] MEDS ORDERED: LORazepam 2 MG/ML VIAL IV PUSH PRN ×3 (15:00)
[2017-09-22] MEDS ORDERED: SODIUM CHLORIDE 0.9% FLUSH 10 ML FLUSH IV FLUSH PRN (15:00)
[2017-09-22] MEDS ORDERED: HALOPERIDOL LACTATE 5 MG/ML AMP IM PRN ×2 (15:00)
[2017-09-22] MEDS: ACETAMINOPHEN 325 MG TAB PO PRN (15:21)
[2017-09-22] MEDS ORDERED: Vancomycin Consult Pharmacy 1 EA OTHER SCH (17:00)
[2017-09-22] MEDS: cefTRIAXone INJ 2,000 MG in SODIUM CHLORIDE 0.9% INJ 100 ML IV SCH (20:46)
[2017-09-22] MEDS: VANCOMYCIN INJ 650 MG in SODIUM CHLOR 0.9% 250 ML INJ 250 ML IV SCH (20:46)
[2017-09-22] MEDS ORDERED: SODIUM CHLORIDE 0.9% FLUSH 10 ML FLUSH IV FLUSH SCH (21:00)
[2017-09-23] VITALS (7 sets, daily range): BP systolic 124–154; BP diastolic 76–95; PULSE 74–103; RESP 16–17; TEMP 97.4–98.4; O2SAT 93–100
[2017-09-23] MEDS: LORazepam 2 MG/ML VIAL IV PUSH PRN ×6 (00:17→18:48)
[2017-09-23] MEDS: SODIUM CHLOR 0.9% 1000 ML INJ 1,000 ML IV SCH ×2 (04:18→14:18)
[2017-09-23] MEDS: VANCOMYCIN INJ 650 MG in SODIUM CHLOR 0.9% 250 ML INJ 250 ML IV SCH ×2 (04:56→18:40)
[2017-09-23] MEDS: NS + KCL 20 MEQ INJ 1,000 ML IV SCH ×3 (05:05→21:47)
[2017-09-23] MEDS: SODIUM CHLORIDE 0.9% FLUSH 10 ML FLUSH IV FLUSH SCH ×2 (08:02→21:53)
[2017-09-23] MEDS: MULTIVITAMIN TAB PO SCH ×2 (08:40→08:48)
[2017-09-23] MEDS: ASPIRIN EC 81 MG TABEC PO SCH ×2 (08:41→08:48)
[2017-09-23] MEDS: DOCUSATE SODIUM 50 MG/SENNA 8.6 MG TAB PO SCH ×3 (08:41→21:51)
[2017-09-23] MEDS: HALOPERIDOL 1 MG TAB PO SCH ×2 (10:30→21:51)
--- NOTE | 2017-09-23 10:30 | HHI.PYPN ---
Subjective Remarks Patient was seen today for psychiatric reevaluation. The patient was found in her bed, she is restrained in 2 points, she seems to be quite agitated, resistant, positional very irritable. Initially the patient told "get out of my f..... room right now", but I was able to de-escalate her verbally. Patient seems to be quite confused, with disorganized thinking, she is completely disoriented in time and place, unable to sustain a logical conversation and provide meaningful information. As per nurse in charge, the patient has been quite agitated, times voicing profanities. Review of Systems Endocrine: DENIES: Abnorml menstrual pattern, Heat/cold intolerance, Polydipsia , Polyuria, Polyphagia Except as stated in HPI: all other systems reviewed are Neg Mental Status Examination Appearance: Dirty, Disheveled, Malodorous Consciousness: Lethargic Orientation: Person Motor Activity: Other (Patient in bed) Speech: Hesitant, Other (Irritable and profane) Language: Other (Disorganized) Fund of Knowledge: Poor Attention and Concentration: Easily Distracted Memory: Impaired Mood: Angry, Oppositional, Anxious, Irritable Affect: Other (Decreased range and intensity) Thought Process & Associations: Disorganized Thought Content: Other (Disorganized) Hallucination Type: None (Difficult to ascertain due to patient's altered mental status) Delusion Type: None (Difficult to ascertain due to patient's altered mental status) Suicidal Ideation: No (Difficult to ascertain due to patient's altered mental status) Suicidal Plan: No Suicidal Intention: No Homicidal Ideation: No Homicidal Plan: No Homicidal Intention: No Insight: Poor Judgment: Poor Results Labs Date/Time Source Procedure Growth Status 09/21/17 19:25 Blood Peripheral Aerobic Blood Culture - Preliminary Gram Positive Cocci Resulted 09/21/17 19:25 Anaerobic Blood Culture - Preliminary Gram Positive Cocci Resulted 09/21/17 21:57 Fluid Synovial Fluid Gram Stain - Final Resulted 09/21/17 21:57 Fluid Synovial Fluid Body Fluid Culture - Preliminary NO GROWTH IN 24 HOURS. Resulted Vitals/IOs Vital Signs Date Time Temp Pulse Resp B/P (MAP) Pulse Ox O2 Delivery O2 Flow Rate FiO2 09/23/17 08:00 98.1 102 17 134/83 (100) 100 09/22/17 22:08 Room Air Intake and Output 5/709/23/17 09/24/17 08:00 16:00 00:00 Intake Total 240 ml Balance 240 ml Assessment & Plan Problem List: (1) Delirium due to conditions classified elsewhere ICD Codes: F05 - Delirium due to known physiological condition Assessment & Plan: Patient is quite disorganized and psychotic. Will add Haldol 1 mg twice daily to help her with psychosis and behavioral control. Continue CIWA. (2) Polysubstance dependence ICD Codes: F19.20 - Other psychoactive substance dependence, uncomplicated Status: Acute (3) Substance induced mood disorder ICD Codes: F19.94 - Other psychoactive substance use, unspecified with psychoactive substance-induced mood disorder Status: Acute Assessment & Plan Estimated LOS: days Justification for Cont. Inpt. Patient is under mares act, committed to psychiatric admission. Javier Pérez MD September 23, 2017 10:30
--- NOTE | 2017-09-23 11:07 | PD.CONS ---
Consult Service Palliative Care Consult Requested By Dr. Monica Knowles Primary Care Physician No Primary Care Physician Reason for Consultation a. To assist with evaluation and management of symptoms including: Pain, altered mental status b. To assist medical decision maker(s) with: better understanding of current medical conditions; weighing benefits/burdens of medical treatment options; making medical treatment decisions. HPI History of Present Illness Ms. Webster is a 41-year-old female with a past medical history of polysubstance abuse including IV intravenous drug use with cocaine/Dilaudid, and tobacco use. Patient presented to the ER on 09/21/17 complaining of left knee pain, fever and generalized malaise . Patient reported hip pain is constant and rated it is 10 out of 10 worsened with movement. Per ER report patient`s last Dilaudid use was the night prior to ER visit and had used cocaine on the day she came to the ER. She was also demanding pain medication in the ER. ER course: * Vital signs: Temperature 101.5, pulse 135, BP 130/79, O2 saturation 99% on room air. * Laboratory workup revealing WBC is 9.9, hemoglobin 11.1, hematocrit 32.9, platelet count 201, p.m. 121, potassium 3.1, BUN/creatinine 18/1.32, random glucose 118, lactic acid 2.8, AST 103, ALT 40,CK-MB 1 3.4, CPK 1479, C-Reactive [id number], troponin I.41, total protein 8.2, albumin 2.4 * Chest x-ray negative for acute disease * Left knee x-ray revealed small suprapatellar knee joint effusion. No acute fracture or dislocation. No significant arthritic changes noted. * Head CT revealed no acute disease. * Toxicology positive for cocaine * Knee joint aspiration in ER-purulent/cloudy drainage noted-fluid with WBCs . * Normal saline 1 L IV bolus, vancomycin 1 g IV, Zosyn 3.375 g IV, 40 mEq KCl administered in ER. * Bood culture collected 09/21/17 positive for Gram positive cocci Iand Group A * Patient admitted under Hospitalist for further evaluation and treatment. Cardiology consulted on 09/22 evaluation of elevated troponin, likely endocarditis, thinks she most likely if endocarditis due to elevated troponin. Patient is not a candidate for invasive coronary intervention or ANNA. Orthopedic Dr. Garcia consulted 09/22/17 for evaluation of left knee pain, recommended an arthrotomy with irrigation and debridement of left knee if synovial fluid is positive for organisms. Psychiatry Dr. Godinez consulted on to be evaluated for delirium with altered mental status secondary to polysubstance abuse and to determine capacity, patient deemed incapacitated to make medical decisions. Blood cultures grew GPC in 3/4 bottles and Group A Beta Strep in 1/4 bottles. Infectious disease consulted on 09/22/17 for evaluation and management of sepsis and bacteremia for a patient known for IV drug use. Palliative care consulted to assist with symptom management ans establishing goals of care. Patient seen and examined in her room on 7N. Patient has eyes closed, seldomly opens them to command, speaking with her eyes closed. Report from bedside RN that patient has required numerous doses of Lorazepam due to restlessness. Patient complaining of a headache and requesting Oxycodone. Denies left knee pain. Patient is alert to self only and very confused to place, time and situation. Appears not to have insight regarding her medical condition and is not able to make medical decisions for herself at this time. Patient spontaneously moving all 4 extremities, following commands intermittently. Patient has bilateral soft restraints and is trying to get out of restraints and getting out of bed. Patient mentioning that she wants to leave the hospital and she`ll call her grandmother to come and get her. Patient using profanity. Telephone call placed to patient`s mother Theresa Webster , left a brief voice message, contact information and requested call back. Placed call to a Nelly Mtz listed as a spouse from a previous hospital visit. Apparently it was a wrong number and the person who answered did not know who Nelly Mtz was. Telephone conversation with patient`s mother and patient`s sister Smiley Allan. Obtained psychosocial and past medical history. Patient does not have advance directives. According to patient`s sister and mother, patient is but have been for more than a years from her Ole Mtz who is incarcerated. The last time they heard about him, he was at [facility] in [place]. Family mentioned that he would not want anything to to do with her. Explained to patient`s family that if patient never completed advance directives, [place] statute has to be followed in determining decision maker since patient has been currently deemed incapacitated to participate in medical decision making. Patient`s mother mentioned that if patient`s refuses to participate in decision making, she would not want patient to be resuscitated in the event of a cardiac arrest or intubated in the event of respiratory distress. She further mentions that she would not want patient to suffer. Case discussed with bedside RN. Function/Cognitive Trajectory Patient lived at home with a family friend. She was independent of all her ADLs. . Review of Systems ROS Limitations: Clinical Condition, Altered Mental Status Constitutional: COMPLAINS OF: Fever, Weight loss, Change in appetite, Pain Eyes: DENIES: Eye inflammation, Vision loss Ears, nose, mouth, throat: DENIES: Hearing loss, Nasal discharge Respiratory: DENIES: Cough, Wheezing, Shortness of breath Cardiovascular: DENIES: Chest pain, Lower Extremity Edema Gastrointestinal: COMPLAINS OF: Nausea, Vomiting Genitourinary: COMPLAINS OF: Urinary incontinence Musculoskeletal: COMPLAINS OF: Joint pain (left knee pain) Integumentary: COMPLAINS OF: Abnormal pigmentation Hematologic/Lymphatics: DENIES: Bruising Neurologic: COMPLAINS OF: Headache, DENIES: Localized weakness Psychiatric: COMPLAINS OF: Confusion, Agitation Other ROS: ROS obtained from EMR, some from patient, family and clinical observation. . Past Family Social History Coded Allergies: No Known Allergies (Unverified Allergy, Unknown, 09/21/17) Past Medical History Tobacco Abuse Polysubstance dependence, amphetamines, opiates, benzodiazepines Intravenous drug use w/ Cocaine/Dilaudid . Past Surgical History Left Hand Repair . Reported Medications Reported Meds & Active Scripts Active . Current Medications Medications (Trade) Dose Ordered Sig/Radha Route Start Time Stop Time Status Last Admin Potassium Chloride/Sodium Chloride 1,000 ml @ 125 mls/hr Q8H IV 09/21/17 21:00 09/23/17 05:05 Sodium Chloride 1,000 ml @ 100 mls/hr Q10H IV 09/21/17 22:18 09/21/17 22:50 (NS Flush) 2 ml UNSCH PRN IV FLUSH 09/21/17 22:30 (NS Flush) 2 ml BID IV FLUSH 09/22/17 09:00 09/22/17 20:46 (Zofran Inj) 4 mg Q6H PRN IVP 09/21/17 22:30 (Tylenol) 650 mg Q6H PRN PO 09/21/17 22:30 09/22/17 15:21 (Roxicodone) 10 mg Q4H PRN PO 09/21/17 22:30 09/21/17 22:50 (Roxicodone) 5 mg Q4H PRN PO 09/21/17 22:30 (Silvia-Colace) 1 tab BID PO 09/22/17 09:00 (Milk Of Magnesia Liq) 30 ml Q12H PRN PO 09/21/17 22:30 (Senokot) 17.2 mg Q12H PRN PO 09/21/17 22:30 (Dulcolax Supp) 10 mg DAILY PRN RECTAL 09/21/17 22:30 (Lactulose Liq) 30 ml DAILY PRN PO 09/21/17 22:30 (Theragran) 1 tab DAILY PO 09/22/17 09:00 (Ecotrin Ec) 81 mg DAILY PO 09/22/17 09:30 (Romazicon Inj) 0.2 mg Q1M PRN IV PUSH 09/22/17 15:00 (Ativan) 1 mg Q4H PRN PO 09/22/17 15:00 (Ativan Inj) 1 mg Q4H PRN IV PUSH 09/22/17 15:00 (Ativan) 2 mg Q2H PRN PO 09/22/17 15:00 (Ativan Inj) 2 mg Q2H PRN IV PUSH 09/22/17 15:00 09/23/17 08:40 (Ativan Inj) 2 mg Q1H PRN IV PUSH 09/22/17 15:00 09/22/17 15:22 (Ativan Inj) 2 mg Q15M PRN IV PUSH 09/22/17 15:00 (Haldol Inj) 2 mg Q15M PRN IM 09/22/17 15:00 Ceftriaxone Sodium 2000 mg/ Sodium Chloride 100 ml @ 200 mls/hr Q24H IV 09/22/17 17:00 09/22/17 20:46 Pharmacy Profile Note 0 ml @ 0 mls/hr UNSCH OTHER 09/22/17 17:00 Vancomycin HCl 650 mg/Sodium Chloride 256.5 ml @ 250 mls/hr Q12H IV 09/22/17 18:00 09/23/17 04:56 ([facility] Ordered Lab Info) SPECIFIC LAB TO BE .. ONCE ONCE .XX 09/24/17 05:45 09/24/17 05:46 Family History Mother- living- she has Hypertension, DM, and COPD Father- - he had HTN, DM Martenal grandmother- had cancer (unknown type) . Substance Use Tobacco: Current smoker- Smokes 1 PPD Alcohol: None reported Prescription med abuse:Yes-Roxycodone Illicits:Yes. Polysubstance dependence, amphetamines, opiates, benzodiazepines . Psychosocial History Patient was born and raised in [place]. Patient is to Ole Mtz and has been from him for more than a year. Patient never had children. Patient worked in a fast food restaurant in the past. . Spiritual/Cultural Factors No orthodox affiliation . Living Will: Never completed Health Care Surrogate: Never completed Durable Power of Cube Cutter: Never completed Health Care Surrogate(s): Health Care Proxy- Spouse- Nelly Mtz currently incarcerated and last reported to be at [facility], [place] [phone] . Physical Exam Vital Signs Date Time Temp Pulse Resp B/P (MAP) Pulse Ox O2 Delivery O2 Flow Rate FiO2 09/23/17 05:02 103 09/23/17 04:00 97.5 90 17 134/81 (98) 100 09/23/17 00:00 97.4 74 17 124/95 (105) 93 09/22/17 22:08 Room Air 09/22/17 20:00 97.3 84 17 105/69 (81) 100 09/22/17 17:00 102 09/22/17 16:00 112 09/22/17 15:00 114 09/22/17 15:00 100.3 104 36 123/63 (83) 99 09/22/17 14:30 102.8 09/22/17 14:00 116 09/22/17 13:00 120 09/22/17 12:00 122 09/22/17 11:00 100.3 110 36 147/86 (106) 100 09/22/17 11:00 108 09/22/17 10:00 108 Exam CONSTITUTIONAL/GENERAL: This is a disheveled lady who looks older that stated age. TUBES/LINES/DRAINS: PIV, Bilateral restraints SKIN: Ecchymoses on upper extremities. Multiple IV use tracks to legs and arms. No wounds seen anteriorly. Skin temperature appropriate. Not diaphoretic. HEAD: Atraumatic. Normocephalic. EYES: Pupils equal and round and reactive. Extraocular motions intact. No scleral icterus. No injection or drainage. Fundi not examined. ENT: Hearing grossly normal. No drainage from nose. Moist oral mucosa. NECK: Trachea midline. Supple, nontender. CARDIOVASCULAR: S1, S2 normal without murmurs, gallops, or rubs. No JVD. Peripheral pulses symmetric. RESPIRATORY/CHEST: Symmetric, unlabored respirations. Diminished in the bases. No wheezes, rales, or rhonchi. GASTROINTESTINAL: Abdomen soft, non-tender, nondistended. Bowel sounds present. GENITOURINARY: Without palpable bladder distension. Adult depends on. MUSCULOSKELETAL: Extremities without clubbing, cyanosis, or edema. No joint tenderness or effusion noted. No calf tenderness. No mottling or clubbing. NEUROLOGICAL: Restless, keeps eyes closed most of the time. Speech clear, using profanity. Intermittently follows commands, spontaneously moves all 4 extremities. PSYCHIATRIC: Restless . Diagnostic Tests Laboratory Laboratory Tests Test 09/21/17 19:25 09/21/17 19:35 09/21/17 21:57 09/22/17 03:09 White Blood Count 9.9 TH/MM3 (4.0-11.0) 7.5 TH/MM3 (4.0-11.0) Red Blood Count 4.43 MIL/MM3 (4.00-5.30) 4.15 MIL/MM3 (4.00-5.30) Hemoglobin 11.1 GM/DL (11.6-15.3) 10.3 GM/DL (11.6-15.3) Hematocrit 32.9 % (35.0-46.0) 31.1 % (35.0-46.0) Mean Corpuscular Volume 74.3 FL (80.0-100.0) 74.8 FL (80.0-100.0) Mean Corpuscular Hemoglobin 25.1 PG (27.0-34.0) 24.8 PG (27.0-34.0) Mean Corpuscular Hemoglobin Concent 33.7 % (32.0-36.0) 33.2 % (32.0-36.0) Red Cell Distribution Width 14.1 % (11.6-17.2) 13.9 % (11.6-17.2) Platelet Count 201 TH/MM3 (150-450) 154 TH/MM3 (150-450) Mean Platelet Volume 9.0 FL (7.0-11.0) 8.7 FL (7.0-11.0) Neutrophils (%) (Auto) 88.2 % (16.0-70.0) 80.8 % (16.0-70.0) Lymphocytes (%) (Auto) 7.4 % (9.0-44.0) 10.2 % (9.0-44.0) Monocytes (%) (Auto) 4.2 % (0.0-8.0) 8.2 % (0.0-8.0) Eosinophils (%) (Auto) 0.0 % (0.0-4.0) 0.6 % (0.0-4.0) Basophils (%) (Auto) 0.2 % (0.0-2.0) 0.2 % (0.0-2.0) Neutrophils # (Auto) 8.7 TH/MM3 (1.8-7.7) 6.1 TH/MM3 (1.8-7.7) Lymphocytes # (Auto) 0.7 TH/MM3 (1.0-4.8) 0.8 TH/MM3 (1.0-4.8) Monocytes # (Auto) 0.4 TH/MM3 (0-0.9) 0.6 TH/MM3 (0-0.9) Eosinophils # (Auto) 0.0 TH/MM3 (0-0.4) 0.0 TH/MM3 (0-0.4) Basophils # (Auto) 0.0 TH/MM3 (0-0.2) 0.0 TH/MM3 (0-0.2) CBC Comment DIFF FINAL DIFF FINAL Differential Comment Erythrocyte Sedimentation Rate 78 mm/hr (0-20) Prothrombin Time 12.7 SEC (9.8-11.6) Prothromb Time International Ratio 1.3 RATIO Activated Partial Thromboplast Time 29.9 SEC (24.3-30.1) Blood Urea Nitrogen 18 MG/DL (7-18) 17 MG/DL (7-18) Creatinine 1.32 MG/DL (0.50-1.00) 1.05 MG/DL (0.50-1.00) Random Glucose 118 MG/DL (74-106) 90 MG/DL (74-106) Total Protein 8.2 GM/DL (6.4-8.2) 6.8 GM/DL (6.4-8.2) Albumin 2.4 GM/DL (3.4-5.0) 1.9 GM/DL (3.4-5.0) Calcium Level 7.9 MG/DL (8.5-10.1) 7.4 MG/DL (8.5-10.1) Alkaline Phosphatase 88 U/L (45-117) 69 U/L (45-117) Aspartate Amino Transf (AST/SGOT) 103 U/L (15-37) 71 U/L (15-37) Alanine Aminotransferase (ALT/SGPT) 40 U/L (10-53) 34 U/L (10-53) Total Bilirubin 0.5 MG/DL (0.2-1.0) 0.3 MG/DL (0.2-1.0) Sodium Level 121 MEQ/L (136-145) 136 MEQ/L (136-145) Potassium Level 3.1 MEQ/L (3.5-5.1) 3.3 MEQ/L (3.5-5.1) Chloride Level 83 MEQ/L (98-107) 99 MEQ/L (98-107) Carbon Dioxide Level 26.7 MEQ/L (21.0-32.0) 29.0 MEQ/L (21.0-32.0) Anion Gap 11 MEQ/L (5-15) 8 MEQ/L (5-15) Estimat Glomerular Filtration Rate 45 ML/MIN (>89) 58 ML/MIN (>89) Lactic Acid Level 2.8 mmol/L (0.4-2.0) 1.9 mmol/L (0.4-2.0) Total Creatine Kinase 1479 U/L (26-192) 850 U/L (26-192) Creatine Kinase MB 13.4 NG/ML (0.5-3.6) 13.0 NG/ML (0.5-3.6) Creatine Kinase MB % 0.9 % (0.0-4.0) 1.5 % (0.0-4.0) Troponin I 1.41 NG/ML (0.02-0.05) 1.19 NG/ML (0.02-0.05) C-Reactive Protein 18.00 MG/DL (0.00-0.30) Lipase 285 U/L (73-393) Thyroid Stimulating Hormone 3rd Gen 0.570 uIU/ML (0.358-3.740) Urine Color LIGHT-YELLOW (YELLW/STRAW) Urine Turbidity CLEAR (CLEAR) Urine pH 6.0 (5.0-8.5) Urine Specific [place]an 1.005 (1.002-1.035) Urine Protein TRACE mg/dL (NEG-TRACE) Urine Glucose (UA) NEG mg/dL (NEG) Urine Ketones NEG mg/dL (NEG) Urine Occult Blood SMALL (NEG) Urine Nitrite NEG (NEG) Urine Bilirubin NEG (NEG) Urine Urobilinogen LESS THAN 2.0 MG/DL (LESS Urine Leukocyte Esterase NEG (NEG) Urine RBC LESS THAN 1 /hpf (0-3) Urine WBC 1 /hpf (0-5) Urine Squamous Epithelial Cells 1 /hpf (0-5) Urine Amorphous Sediment RARE Microscopic Urinalysis Comment CULT NOT INDICATED Urine Opiates Screen NEG (NEG) Urine Barbiturates Screen NEG (NEG) Urine Amphetamines Screen NEG (NEG) Urine Benzodiazepines Screen NEG (NEG) Urine Cocaine Screen POS (NEG) Urine Cannabinoids Screen NEG (NEG) Synovial Fluid Color STRAW (STRAW) Synovial Fluid Appearance MARKED (CLEAR) Synovial Fluid WBC 27019 /MM3 (0-200) Synovial Fluid RBC 2700 /MM3 (0-0) Synovial Fluid Neutrophils 97 % (0-25) Synovial Fluid Lymphocytes 1 % Synovial Fluid Monocytes 2 % Synovial Fluid Crystals NONE (NONE) Protein Corrected Calcium 7.6 MG/DL (8.5-10.1) Result Diagram: 09/22/17 0309 09/22/17 0309 Microbiology Microbiology Date/Time Source Procedure Growth Status 09/21/17 19:25 Blood Peripheral Aerobic Blood Culture - Preliminary Gram Positive Cocci Resulted 09/21/17 19:25 Anaerobic Blood Culture - Preliminary Gram Positive Cocci Resulted 09/21/17 19:20 Blood Peripheral Aerobic Blood Culture - Preliminary Group A Beta Strep Resulted 09/21/17 19:20 Anaerobic Blood Culture - Preliminary Gram Positive Cocci Resulted 09/21/17 21:57 Fluid Synovial Fluid Gram Stain - Final Resulted 09/21/17 21:57 Fluid Synovial Fluid Body Fluid Culture - Preliminary NO GROWTH IN 24 HOURS. Resulted Imaging Last Impressions Head CT 09/21/171932 Signed Impressions: Service Date/Time: Thursday, September 21, 2017 19:53 - CONCLUSION: No acute disease. Ethan Salas MD Knee X-Ray 09/21/171916 Signed Impressions: Service Date/Time: Thursday, September 21, 2017 19:20 - CONCLUSION: Small suprapatellar knee joint effusion. Ethan aSlas MD Chest X-Ray 09/21/171911 Signed Impressions: Service Date/Time: Thursday, September 21, 2017 19:17 - CONCLUSION: No acute disease. Ethan Salas MD Patient/Family Conference Issues Discussed: * Palliative care role, purpose, approach * Additional medical, psychosocial, and spiritual history * Patients general health, functional status, and cognitive changes in the months leading up to the current hospitalization * Patient/family understanding of the current medical problems * Patient/family understanding of prognosis * Patients goals of care as best understood from advance directives and/or conversations and/or values * Current medical treatment options and benefits/burdens of those options * Likely scenarios comparing ongoing aggressive care with a transition to comfort measures only * Questions answered to the best of my ability * Palliative care contact information provided Assessment and Plan Disease Oriented Problem List: (1) Sepsis (2) Septic arthritis of knee, left (3) ANDRZEJ (acute kidney injury) (4) Elevated troponin (5) Hyponatremia (6) Substance induced mood disorder (7) Polysubstance dependence (8) IVDU (intravenous drug user) Symptom Scale: (1) Pain (2) Altered mental state 0-10 Scale: Unable to quantify Pertinent Non-Medical Issues Psychosocial:Patient was born and raised in [place]. Per EMR records dated 03/26/16 patient was . Patient worked in a fast food restaurant in the past. Spiritual: Legal: Ethical issues impacting care: Important Contacts Mother- Theresa Webster- [phone] Sister- Smiley Jerrell- [phone] Sister-Lindsay Nina- [phone] Spouse- Nelly Mtz- Currently incarcerated- Had been from patient for a year . Prognosis Ms. Webster is a 41-year-old female with a past medical history of polysubstance abuse including IV intravenous drug use with cocaine/Dilaudid, and tobacco use. Patient presented to the ER on 09/21/17 complaining of left knee pain, fever and generalized malaise . Per ER report patient`s last Dilaudid use was the night prior to ER visit and had used cocaine on the day she came to the ER. She was also demanding pain medication in the ER.Clinical course complicated with delirium, sepsis and bacteremia. Given patient`s lifestyle choice and ongoing comorbidities, she remains at high risk for further complications, deterioration and decline. . Code Status: Full Code Plan PLAN: Legal decision maker: Patient is currently incapacitated to make medical decisions per Psychiatry. According to [place] Statute, patient`s Nelly Mtz will serve as her health care proxy if he accepts to participate in decision making. Goals: Aggressive- Pending conversation with patient`s who is currently incarcerated. CODE STATUS: Full code by default Patient is to Nelly Mtz who is currently incarcerated. Goals of care will be discussed when able to to contact patient`s . SYMPTOMS: * Pain: Patient has a history of polysubstance abuse. Patient came in complaining left knee pain and requesting oxycodone in the ER. Currently complaining of a headache and requested oxycodone. * Altered mental status: With a history of polysubstance abuse, and recent use. Patient may be going through withdrawal symptoms. Patient was put on CIWA protocol. Patient has received multiple doses of Lorazepam. Palliative care will continue to follow the patient during hospital course as condition evolves, to assist patient/decision-maker with understanding of their medical conditions, weighing benefits/burdens of treatment options, for clarification of goals of treatment. Additionally will assist with any symptoms of palliative concern Thank you for the opportunity to participate in the care of Ms. Webster. Attestation To help prompt me to consider important information that might be impacting today's encounter and assessment, information from prior notes written by myself or my colleagues may have been "brought forward" into today's note. My signature on this note, however, is an attestation that I personally performed the exam, history, and/or decision-making noted today, and, unless otherwise indicated, the interactions with patient, family, and staff as well as the review of records all occurred today. I also attest that the listed assessment and stated plan reflect my best clinical judgment today based on the combination of historical information, prior notes, and today's exam/ interactions. When time spent is documented, it refers only to time spent today by the signer, or if indicated, combined time spent today by collaborating physician/nurse practitioner. Haley Mccarthy September 23, 2017 10:59
--- NOTE | 2017-09-23 11:58 | HHI.IDPN ---
Subjective Subjective Remarks Patient seen and examined on behalf of Dr. Knowles This is a 41yr old female with a past medical history of IVDU with cocaine and Dilaudid who presented to [facility] ED with complaints of left knee pain, generalized malaise and fever. Patient found to have sepsis with elevated temperature 101.5, tachycardia with HR 135, elevated lactic acid of 2.8 and source of septic knee joint. UDS was positive for cocaine. Xray of the left knee revealed suprapatellar knee joint effusion. She underwent left knee joint aspiration in the ED with purulent fluid removed with synovial fluid with 29, 700 WBC and 97 neutrophils. Gram stain shows moderate WBCs and no organisms. Patient was started on IV Vancomycin and Zosyn. Patient was seen in consultation by orthopedics who had considered surgical intervention but have decided to monitor aspirate due to no growth of organisms before proceeding with arthrotomy. She was also noted to have elevated troponins and was seen in consultation by cardiology who is concerned about possible endocarditis and has ordered a 2D echocardiogram. Blood cultures were obtained and grew GPC in 3/4 bottles and Group A Beta Strep in 1/4 bottles. Patient has been seen by psychiatry for delirium with altered mental status secondary to polysubstance abuse and sepsis and has deemed her lacking capacity to make her own medical decisions. Infectious disease has been consulted for evaluation and management of sepsis and bacteremia. Her most recent vital signs are significant for fever of 100.3 , tachycardia with HR of 110 and RR 36. Lactic acid this am was 1.9 and white count was WNL. ESR elevated at 76 and CRP was 18. Patient seen and examination attempted but patient appears lethargic and uncooperative with exam. She will not answer any questions or follow any commands. With attempts at tactile stimuli, she uses profanity and yells to "leave me the fuck alone". Overnight events noted Notes reviewed Patient sitting on side of bed in 2 point restraints, awake but appears lethargic appears confused, speaking nonsensically, not oriented Tmax 102.8 yesterday, afebrile today WBC WNL ESR 78 CRP 18 BCX + GPC 3/4 bottles, + Group A Beta strep 1/4 Antibiotics IV Vancomycin IV Ceftriaxone Current Medications Medications (Trade) Dose Ordered Sig/Radha Route Start Time Stop Time Status Last Admin Potassium Chloride/Sodium Chloride 1,000 ml @ 125 mls/hr Q8H IV 09/21/17 21:00 09/23/17 05:05 Sodium Chloride 1,000 ml @ 100 mls/hr Q10H IV 09/21/17 22:18 09/21/17 22:50 (NS Flush) 2 ml UNSCH PRN IV FLUSH 09/21/17 22:30 (NS Flush) 2 ml BID IV FLUSH 09/22/17 09:00 09/22/17 20:46 (Zofran Inj) 4 mg Q6H PRN IVP 09/21/17 22:30 (Tylenol) 650 mg Q6H PRN PO 09/21/17 22:30 09/22/17 15:21 (Roxicodone) 10 mg Q4H PRN PO 09/21/17 22:30 09/21/17 22:50 (Roxicodone) 5 mg Q4H PRN PO 09/21/17 22:30 (Silvia-Colace) 1 tab BID PO 09/22/17 09:00 (Milk Of Magnesia Liq) 30 ml Q12H PRN PO 09/21/17 22:30 (Senokot) 17.2 mg Q12H PRN PO 09/21/17 22:30 (Dulcolax Supp) 10 mg DAILY PRN RECTAL 09/21/17 22:30 (Lactulose Liq) 30 ml DAILY PRN PO 09/21/17 22:30 (Theragran) 1 tab DAILY PO 09/22/17 09:00 (Ecotrin Ec) 81 mg DAILY PO 09/22/17 09:30 (Romazicon Inj) 0.2 mg Q1M PRN IV PUSH 09/22/17 15:00 (Ativan) 1 mg Q4H PRN PO 09/22/17 15:00 (Ativan Inj) 1 mg Q4H PRN IV PUSH 09/22/17 15:00 (Ativan) 2 mg Q2H PRN PO 09/22/17 15:00 (Ativan Inj) 2 mg Q2H PRN IV PUSH 09/22/17 15:00 09/23/17 08:40 (Ativan Inj) 2 mg Q1H PRN IV PUSH 09/22/17 15:00 09/22/17 15:22 (Ativan Inj) 2 mg Q15M PRN IV PUSH 09/22/17 15:00 (Haldol Inj) 2 mg Q15M PRN IM 09/22/17 15:00 Ceftriaxone Sodium 2000 mg/ Sodium Chloride 100 ml @ 200 mls/hr Q24H IV 09/22/17 17:00 09/22/17 20:46 Pharmacy Profile Note 0 ml @ 0 mls/hr UNSCH OTHER 09/22/17 17:00 Vancomycin HCl 650 mg/Sodium Chloride 256.5 ml @ 250 mls/hr Q12H IV 09/22/17 18:00 09/23/17 04:56 ([facility] Ordered Lab Info) SPECIFIC LAB TO BE ... ONCE ONCE .XX 09/24/17 05:45 09/24/17 05:46 (Haldol) 1 mg BID PO 09/23/17 10:30 Lines PIV with no e/o infection Past Medical History IVTAN (Viji Camilo) Allergies: Coded Allergies: No Known Allergies (Unverified Allergy, Unknown, 09/21/17) Objective . Vital Signs Date Time Temp Pulse Resp B/P (MAP) Pulse Ox O2 Delivery O2 Flow Rate FiO2 09/23/17 08:00 98.1 102 17 134/83 (100) 100 09/23/17 05:02 103 09/23/17 04:00 97.5 90 17 134/81 (98) 100 09/23/17 00:00 97.4 74 17 124/95 (105) 93 09/22/17 22:08 Room Air 09/22/17 20:00 97.3 84 17 105/69 (81) 100 09/22/17 17:00 102 09/22/17 16:00 112 09/22/17 15:00 114 09/22/17 15:00 100.3 104 36 123/63 (83) 99 09/22/17 14:30 102.8 09/22/17 14:00 116 09/22/17 13:00 120 09/22/17 12:00 122 . Laboratory Tests Test 09/21/17 19:25 09/22/17 03:09 White Blood Count 9.9 TH/MM3 7.5 TH/MM3 Red Blood Count 4.43 MIL/MM3 4.15 MIL/MM3 Hemoglobin 11.1 GM/DL 10.3 GM/DL Hematocrit 32.9 % 31.1 % Mean Corpuscular Volume 74.3 FL 74.8 FL Mean Corpuscular Hemoglobin 25.1 PG 24.8 PG Mean Corpuscular Hemoglobin Concent 33.7 % 33.2 % Red Cell Distribution Width 14.1 % 13.9 % Platelet Count 201 TH/MM3 154 TH/MM3 Mean Platelet Volume 9.0 FL 8.7 FL Neutrophils (%) (Auto) 88.2 % 80.8 % Lymphocytes (%) (Auto) 7.4 % 10.2 % Monocytes (%) (Auto) 4.2 % 8.2 % Eosinophils (%) (Auto) 0.0 % 0.6 % Basophils (%) (Auto) 0.2 % 0.2 % Neutrophils # (Auto) 8.7 TH/MM3 6.1 TH/MM3 Lymphocytes # (Auto) 0.7 TH/MM3 0.8 TH/MM3 Monocytes # (Auto) 0.4 TH/MM3 0.6 TH/MM3 Eosinophils # (Auto) 0.0 TH/MM3 0.0 TH/MM3 Basophils # (Auto) 0.0 TH/MM3 0.0 TH/MM3 CBC Comment DIFF FINAL DIFF FINAL Differential Comment Erythrocyte Sedimentation Rate 78 mm/hr Laboratory Tests Test 09/21/17 19:25 09/22/17 03:09 Blood Urea Nitrogen 18 MG/DL 17 MG/DL Creatinine 1.32 MG/DL 1.05 MG/DL Random Glucose 118 MG/DL 90 MG/DL Total Protein 8.2 GM/DL 6.8 GM/DL Albumin 2.4 GM/DL 1.9 GM/DL Calcium Level 7.9 MG/DL 7.4 MG/DL Alkaline Phosphatase 88 U/L 69 U/L Aspartate Amino Transf (AST/SGOT) 103 U/L 71 U/L Alanine Aminotransferase (ALT/SGPT) 40 U/L 34 U/L Total Bilirubin 0.5 MG/DL 0.3 MG/DL Sodium Level 121 MEQ/L 136 MEQ/L Potassium Level 3.1 MEQ/L 3.3 MEQ/L Chloride Level 83 MEQ/L 99 MEQ/L Carbon Dioxide Level 26.7 MEQ/L 29.0 MEQ/L Anion Gap 11 MEQ/L 8 MEQ/L Estimat Glomerular Filtration Rate 45 ML/MIN 58 ML/MIN Lactic Acid Level 2.8 mmol/L 1.9 mmol/L Total Creatine Kinase 1479 U/L 850 U/L Creatine Kinase MB 13.4 NG/ML 13.0 NG/ML Creatine Kinase MB % 0.9 % 1.5 % Troponin I 1.41 NG/ML 1.19 NG/ML C-Reactive Protein 18.00 MG/DL Lipase 285 U/L Thyroid Stimulating Hormone 3rd Gen 0.570 uIU/ML Protein Corrected Calcium 7.6 MG/DL Microbiology Date/Time Source Procedure Growth Status 09/21/17 19:25 Blood Peripheral Aerobic Blood Culture - Preliminary Gram Positive Cocci Resulted 09/21/17 19:25 Anaerobic Blood Culture - Preliminary Gram Positive Cocci Resulted 09/21/17 19:20 Blood Peripheral Aerobic Blood Culture - Preliminary Group A Beta Strep Resulted 09/21/17 19:20 Anaerobic Blood Culture - Preliminary Gram Positive Cocci Resulted 09/21/17 21:57 Fluid Synovial Fluid Gram Stain - Final Resulted 09/21/17 21:57 Fluid Synovial Fluid Body Fluid Culture - Preliminary NO GROWTH IN 24 HOURS. Resulted Imaging Last Impressions Head CT 09/21/171932 Signed Impressions: Service Date/Time: Thursday, September 21, 2017 19:53 - CONCLUSION: No acute disease. Ethan Salas MD Knee X-Ray 09/21/171916 Signed Impressions: Service Date/Time: Thursday, September 21, 2017 19:20 - CONCLUSION: Small suprapatellar knee joint effusion. Ethan Salas MD Chest X-Ray 09/21/171911 Signed Impressions: Service Date/Time: Thursday, September 21, 2017 19:17 - CONCLUSION: No acute disease. Ethan Salas MD Physical Exam GENERAL: This is a thin cachetic unkempt female patient who appears much older than stated age, in no apparent distress. In 2 point soft restraints. Confused, disorganized thought process. SKIN: Warm and dry. + track recinos. HEAD: Atraumatic. Normocephalic. No temporal or scalp tenderness. EYES: PERRLA. No scleral icterus. ENT: Nose without bleeding or purulent drainage. Airway patent. NECK: Trachea midline. CARDIOVASCULAR: Tachycardic without murmurs, gallops, or rubs. RESPIRATORY: Poor effort. Clear to auscultation. Breath sounds equal bilaterally. No wheezes, rales, or rhonchi. GASTROINTESTINAL: Abdomen soft, non-tender, nondistended. MUSCULOSKELETAL: Extremities without clubbing, cyanosis, or edema. Right knee with area of erythema anteriorly. +warmth. Appears uncomfortable with examination of right knee. No calf tenderness. NEUROLOGICAL: Awake but somewhat lethargic. Moves all extremities. Unable to have any meaningful conversation. PSYCHIATRIC: Confused, completely disoriented. Disorganized thought process. Tangential speech. Calm, cooperative with exam. PIV with no e/o infection (Viji Camilo) Assessment & Plan Remarks ASSESSMENT: Sepsis Strep bacteremia, possible endocarditis Left knee septic arthritis ?early infection right knee Acute metabolic encephalopathy secondary to polysubstance abuse/IVDU and sepsis Delirium -evaluated by psychiatry and deemed to lack capacity for own medical decision making -under Zuñiga Act -palliative care following Rhabdomyolysis -CK 1479, trending down ANDRZEJ suspect secondary to sepsis and rhabdomyolysis -on IVF hydration -creatinine improving Elevated troponins -evaluated by cardiology - likely NSTEMI but not a candidate for invasive coronary intervention, likely endocarditis -2D echo ordered/pending IVDU -UDS positive for cocaine -per review of admission H/P, patient admitted to IV use of Dilaudid and Cocaine Hyponatremia, resolved Hypokalemia Hypocalcemia RECOMMENDATIONS: Xray right knee for further evaluation. Continue to monitor right knee for signs of developing infection. Continue on IV Ceftriaxone and IV Vancomycin Repeat BCX x 2 - pending lab specimen follow up on final blood culture results Obtain RPR, HIV and Hepatitis profile - all pending lab specimen Monitor clinically Will continue to follow along with you (Viji Camilo) Remarks The exam, history, and the medical decision-making described in the above note were completed with the assistance of the mid-level provider. I reviewed and agree with the findings presented. I attest that I had a heic-ac-ampf encounter with the patient on the same day, and personally performed and documented my assessment and findings in the medical record. Sepsis Strep Endocarditis probable. Acute metabolic encephalopathy concern for septic emboli as still lethargic and AMS. Hepatitis C positive Continue Ceftriaxone IV Continue Vanco IV for now Follow cultures to adjust antibiotics. CT chest/abd/pelvis to look for evidence of septic emboli/dissemination Follow 2 D ECHO MRI brain with and without contrast concern for septic emboli to brain. If AMS persists will consider LP westley if MRI abnormal Xray Right knee as mild erythema, warmth and tenderness noted. (Agnes Knowles MD) Viji Camilo September 23, 2017 11:58 Agnes Knowles MD September 23, 2017 19:17
--- NOTE | 2017-09-23 15:25 | HHI.PR ---
Subjective Remarks patient easily rousable and when examined cursed restless, stated her name requires restraints Objective Vitals Vital Signs Date Time Temp Pulse Resp B/P (MAP) Pulse Ox O2 Delivery O2 Flow Rate FiO2 09/23/17 12:00 98.3 93 17 141/76 (97) 100 09/23/17 08:00 98.1 102 17 134/83 (100) 100 09/23/17 05:02 103 09/23/17 04:00 97.5 90 17 134/81 (98) 100 09/23/17 00:00 97.4 74 17 124/95 (105) 93 09/22/17 22:08 Room Air 09/22/17 20:00 97.3 84 17 105/69 (81) 100 09/22/17 17:00 102 09/22/17 16:00 112 I/O 09/22/17 09/22/17 09/22/17 09/23/17 09/23/17 09/23/17 07:00 15:00 23:00 07:00 15:00 23:00 Intake Total 500 ml 956.5 ml 240 ml Output Total 700 ml Balance 500 ml 256.5 ml 240 ml Intake Oral 600 ml 240 ml IV Total 500 ml 356.5 ml Output Urine Total 700 ml # Voids 3 4 # Bowel Movements 3 4 2 Result Diagram: 09/22/17 0309 09/22/17 030 Imaging Last Impressions Head CT 09/21/171932 Signed Impressions: Service Date/Time: Thursday, September 21, 2017 19:53 - CONCLUSION: No acute disease. Ethan Salas MD Knee X-Ray 09/21/171916 Signed Impressions: Service Date/Time: Thursday, September 21, 2017 19:20 - CONCLUSION: Small suprapatellar knee joint effusion. Ethan Salas MD Chest X-Ray 09/21/171911 Signed Impressions: Service Date/Time: Thursday, September 21, 2017 19:17 - CONCLUSION: No acute disease. Ethan Salas MD Objective Remarks drowsy, moves all extremitiies spontaenously, ff some commands ken- multiple recinos, no nuchal rigidity no rales regular rhythm abdomen soft knee- left knee with area of erythema- suprapatellar ranulfo moves all extremities no calf swelling A/P Problem List: (1) Sepsis ICD Code: A41.9 - Sepsis, unspecified organism Status: Acute (2) Septic arthritis of knee, left ICD Code: M00.9 - Pyogenic arthritis, unspecified Status: Acute (3) Elevated troponin ICD Code: R74.8 - Abnormal levels of other serum enzymes Status: Acute (4) Rhabdomyolysis ICD Code: M62.82 - Rhabdomyolysis Status: Acute (5) Hyponatremia ICD Code: E87.1 - Hypo-osmolality and hyponatremia Status: Acute (6) ANDRZEJ (acute kidney injury) ICD Code: N17.9 - Acute kidney failure, unspecified (7) IVDU (intravenous drug user) ICD Code: F19.90 - Other psychoactive substance use, unspecified, uncomplicated Assessment and Plan S. Bacteremia/ sepsis with possible endocarditis on admission: Temp 101.5, HR 135, Lactic Acid 2.8, Source-Septic Knee Joint. S /p Blood Cultures, follow up cultures, check repeat Lactic Acid back to normal. IVF Repeat blood cx On Ceftriaxone and Vancomycin- ID ff Left Knee Septic Joint: +erythema/edema, X-ray with small suprapatellar knee joint effusion s/p knee joint aspiration in ER, +purulent drainage noted. Continue w/ treatment as above. Agitation/ withdrawals. On ativan. Restraints Elevated Trop: Trop 1.41, no acute EKG changes, no c/o chest pain, likely related to underlying Cocaine Abuse. Cardiology consulted, recommend to trend enzymes. Telemetry. Check serial cardiac enzymes for trend. Check Echo to eval for possible underlying endocarditis/myocarditis. Rhabdomyolysis: CPK 1479, IVF for hydration, FF CK levels ANDRZEJ: Creatinine 1.32, previously 0.81 on 03/25/16. U/a negative for UTI. + Cocaine. IVF, repeat labs pending Hyponatremia: BMP pending IVDU: Pt counselled. Demanding pain medication. Ativan prn for withdrawal. Severe protein calorie malnutrition low BMI, low albumin. Add ensure, MVT DVT Prophylaxis: SCD/Teds CM for d/c planning as needed. Problem Qualifiers (1) Sepsis: Qualified Codes: A41.9 - Sepsis, unspecified organism (2) Septic arthritis of knee, left: Qualified Codes: M00.9 - Pyogenic arthritis, unspecified (3) Rhabdomyolysis: Qualified Codes: M62.82 - Rhabdomyolysis Gael Conde MD September 23, 2017 15:25
[2017-09-23 15:52] LABS: BICARBONATE 29.6 MEQ/L (21.0-32.0); CALCIUM 7.7 MG/DL (8.5-10.1); CREATININE 0.7 MG/DL (0.50-1.00)
--- NOTE | 2017-09-23 16:40 | HHI.HCPN ---
Attempting to locate patient's reported . Able to find marriage license from 2011. Patient was to Cayetano Mtz in 2011. Currently incarcerated at [facility] [phone]. DC# [id number]. Office gone for the day. Palliative care will contact in the AM to determine if is able to participate in medical decision making. Elvia Liz, SUBSTATION OPERATOR TRANSFORMING September 23, 2017 16:40
[2017-09-23] MEDS: POTASSIUM CHLOR 10 MEQ PREMIX 100 ML IV SCH ×3 (18:30→21:48)
[2017-09-23] MEDS: cefTRIAXone INJ 2,000 MG in SODIUM CHLORIDE 0.9% INJ 100 ML IV SCH (18:30)
[2017-09-23] MEDS ORDERED: DIATRIZOATE MEGLUM/DIATRIZOATE SOD 9 ML CUP PO ONE (19:45)
--- NOTE | 2017-09-23 20:34 | RADRPT ---
EXAM DATE/TIME: 09/23/2017 19:48 [facility] COMPARISON: No previous studies available for comparison. INDICATIONS : Right knee pain, unknown injury. MEDICAL HISTORY : None. SURGICAL HISTORY : None. ENCOUNTER: Initial ACUITY: 1 day PAIN SCORE: Non-responsive. LOCATION: Right knee. FINDINGS: Two view examination of the right knee demonstrates no evidence of fracture or dislocation. Bony min eralization is normal. The suprapatellar soft tissues have a normal configuration. CONCLUSION: 1. No acute findings. Roge Short MD on September 23, 2017 at 20:31 Board Certified Radiologist. This report was verified electronically.
[2017-09-24] MEDS: LORazepam 2 MG TAB PO PRN ×2 (00:02→02:16)
[2017-09-24 00:17] VITALS: BP 154/81; PULSE 94; RESP 16; TEMP 98.1; O2SAT 100
[2017-09-24] MEDS: SODIUM CHLOR 0.9% 1000 ML INJ 1,000 ML IV SCH ×3 (00:18→20:18)
[2017-09-24] MEDS: LORazepam 1 MG TAB PO PRN (04:05)
[2017-09-24 04:12] VITALS: BP 138/76; PULSE 97; RESP 16; TEMP 98.1; O2SAT 99
[2017-09-24] MEDS: NS + KCL 20 MEQ INJ 1,000 ML IV SCH ×3 (05:20→20:36)
[2017-09-24] MEDS ORDERED: PHARMACY ORDERED LAB ONE ×2 (05:45→17:45)
[2017-09-24 08:00] VITALS: BP 142/87; PULSE 91; RESP 18; TEMP 98; O2SAT 100
[2017-09-24] MEDS ORDERED: DIATRIZOATE MEGLUM/DIATRIZOATE SOD 9 ML CUP PO ONE (08:00)
--- NOTE | 2017-09-24 08:21 | PD.ORT.PN ---
Subjective Subjective Remarks left knee pain and swelling. patient in restraints. resting comfortably Objective Vitals Vital Signs Date Time Temp Pulse Resp B/P (MAP) Pulse Ox O2 Delivery O2 Flow Rate FiO2 09/24/17 04:12 98.1 97 16 138/76 (96) 99 09/24/17 00:17 98.1 94 16 154/81 (105) 100 09/23/17 20:00 98.0 96 16 154/95 (114) 97 09/23/17 16:00 98.4 97 17 150/86 (107) 100 09/23/17 12:00 98.3 93 17 141/76 (97) 100 I/O 09/23/17 09/23/17 09/23/17 09/24/17 09/24/17 09/24/17 07:00 15:00 23:00 07:00 15:00 23:00 Intake Total 240 ml 750 ml 240 ml Balance 240 ml 750 ml 240 ml Intake Oral 240 ml 750 ml 240 ml # Voids 4 6 6 # Bowel Movements 2 6 6 Result Diagram: 09/22/17 0309 09/23/17 1510 Imaging Last [address] 09/21/171932 Signed Impressions: Service Date/Time: Thursday, September 21, 2017 19:53 - CONCLUSION: No acute disease. Ethan Salas MD Knee X-Ray 09/21/171916 Signed Impressions: Service Date/Time: Thursday, September 21, 2017 19:20 - CONCLUSION: Small suprapatellar knee joint effusion. Ethan Salas MD Chest X-Ray 09/21/171911 Signed Impressions: Service Date/Time: Thursday, September 21, 2017 19:17 - CONCLUSION: No acute disease. Ethan Salas MD Objective Remarks LLE: minimal swelling present. nontender to palpation. nvi Assessment & Plan Assessment and Plan 1) Left Knee pain and swelling -knee aspirate is neg for organisms and are finalized -no surgery warranted for knee -WBAT -no restrictions Jacques Nina PA/Photo Mask Processor PA September 24, 2017 08:21
[2017-09-24] MEDS: MULTIVITAMIN TAB PO SCH (08:58)
[2017-09-24] MEDS: DOCUSATE SODIUM 50 MG/SENNA 8.6 MG TAB PO SCH ×2 (08:58→20:37)
[2017-09-24] MEDS: SODIUM CHLORIDE 0.9% FLUSH 10 ML FLUSH IV FLUSH SCH ×2 (08:59→20:36)
[2017-09-24] MEDS: ASPIRIN EC 81 MG TABEC PO SCH (08:59)
[2017-09-24] MEDS: HALOPERIDOL 1 MG TAB PO SCH ×2 (08:59→20:36)
[2017-09-24 09:17] LABS: RPR SCREEN FOR REFLEX NON-REACTIVE (NON-REACTVE)
[2017-09-24 09:46] LABS: AUTOMATED NEUTROPHIL # 4.6 TH/MM3 (1.8-7.7); BASOPHIL % 0.5 % (0.0-2.0); EOSINOPHIL # 0.1 TH/MM3 (0-0.4); EOSINOPHIL % 0.8 % (0.0-4.0); HEMATOCRIT 28.1 % (35.0-46.0); HEMOGLOBIN 9.4 GM/DL (11.6-15.3); LYMPH % 18.3 % (9.0-44.0); LYMPHOCYTE # 1.2 TH/MM3 (1.0-4.8); MEAN CORPUSCULAR HEMOGLOBIN 24.4 PG (27.0-34.0); MEAN CORPUSCULAR HGB CONC 33.4 % (32.0-36.0); MEAN PLATELET VOLUME 9.1 FL (7.0-11.0); MONO % 9.3 % (0.0-8.0); MONOCYTE # 0.6 TH/MM3 (0-0.9); NEUT % 71.1 % (16.0-70.0); PLATELET COUNT 208 TH/MM3 (150-450); RED BLOOD COUNT 3.85 MIL/MM3 (4.00-5.30); RED CELL DISTRIBUTION WIDTH 14.4 % (11.6-17.2); WHITE BLOOD COUNT 6.5 TH/MM3 (4.0-11.0)
[2017-09-24] MEDS: VANCOMYCIN INJ 650 MG in SODIUM CHLOR 0.9% 250 ML INJ 250 ML IV SCH ×2 (09:55→20:33)
[2017-09-24 10:07] LABS: BICARBONATE 25.5 MEQ/L (21.0-32.0); CALCIUM 8.1 MG/DL (8.5-10.1); CREATININE 0.53 MG/DL (0.50-1.00)
--- NOTE | 2017-09-24 10:10 | HHI.HCPN ---
Spoke with [place] [employer] [phone], transferred to employee service officer. Classifcation officer Margy Child currently unavailable. Left message with corporation secretary with information, awaiting call back to determine if Mr. Cayetano Mtz is able to participate in medical decision making. 1120am- Received call back Officer Danyell ([phone]). She states Mr. Mtz confirms they are legally however facility is unable to accommodate him participating in medical decisions as he cannot be readily available. His release date is not until March 2018. Per [place] Statutes, medical proxy decision making would fall to patient's mother. Informed palliative FORM SETTER [employer] of above. Palliative care will continue to follow throughout hospitalization. Elvia Liz RIM TURNING FINISHER, WASHTUB WORKER HELPER September 24, 2017 10:10
[2017-09-24 12:00] VITALS: BP 156/90; PULSE 92; RESP 16; TEMP 97.6; O2SAT 100
[2017-09-24] MEDS: MAGNESIUM SULFATE 1 GM PREMIX 100 ML IV SCH ×2 (13:12→16:46)
[2017-09-24] MEDS: LORazepam 2 MG/ML VIAL IV PUSH PRN (13:12)
[2017-09-24] MEDS ORDERED: IOHEXOL 350 MG/ML 10 ML VIAL (for RAD DIAG) IVCONTRAST ONE (14:13)
--- NOTE | 2017-09-24 14:17 | HHI.PR ---
Subjective Remarks more awake but confused stated her anme and ff all commands though seen with staff nurse Objective Vitals Vital Signs Date Time Temp Pulse Resp B/P (MAP) Pulse Ox O2 Delivery O2 Flow Rate FiO2 09/24/17 12:00 97.6 92 16 156/90 (112) 100 09/24/17 08:00 98.0 91 18 142/87 (105) 100 09/24/17 04:12 98.1 97 16 138/76 (96) 99 09/24/17 00:17 98.1 94 16 154/81 (105) 100 09/23/17 20:00 98.0 96 16 154/95 (114) 97 09/23/17 16:00 98.4 97 17 150/86 (107) 100 I/O 09/23/17 09/23/17 09/23/17 09/24/17 09/24/17 09/24/17 07:00 15:00 23:00 07:00 15:00 23:00 Intake Total 240 ml 750 ml 240 ml Balance 240 ml 750 ml 240 ml Intake Oral 240 ml 750 ml 240 ml # Voids 4 6 6 # Bowel Movements 2 6 6 Result Diagram: 09/24/17 0819 09/24/17 0819 Imaging Last Impressions Knee X-Ray 09/23/17 0000 Signed Impressions: Service Date/Time: Saturday, September 23, 2017 19:48 - CONCLUSION: 1. No acute findings. Roge Short MD Head CT 09/21/171932 Signed Impressions: Service Date/Time: Thursday, September 21, 2017 19:53 - CONCLUSION: No acute disease. Ethan Salas MD Chest X-Ray 09/21/171911 Signed Impressions: Service Date/Time: Thursday, September 21, 2017 19:17 - CONCLUSION: No acute disease. Ethan Salas MD Objective Remarks awake, confused, oriented to eprson and place, moves all extremitiies spontaenously, ff some commands ken- multiple recinos, no nuchal rigidity no rales regular rhythm abdomen soft left knee with area of erythema/mild swelling, not warm - suprapatellar ranulfo moves all extremities no calf swelling A/P Problem List: (1) Sepsis ICD Code: A41.9 - Sepsis, unspecified organism Status: Acute (2) Septic arthritis of knee, left ICD Code: M00.9 - Pyogenic arthritis, unspecified Status: Acute (3) Elevated troponin ICD Code: R74.8 - Abnormal levels of other serum enzymes Status: Acute (4) Rhabdomyolysis ICD Code: M62.82 - Rhabdomyolysis Status: Acute (5) Hyponatremia ICD Code: E87.1 - Hypo-osmolality and hyponatremia Status: Acute (6) ANDRZEJ (acute kidney injury) ICD Code: N17.9 - Acute kidney failure, unspecified (7) IVDU (intravenous drug user) ICD Code: F19.90 - Other psychoactive substance use, unspecified, uncomplicated Assessment and Plan S. Bacteremia/ sepsis with possible endocarditis on admission: Temp 101.5, HR 135, Lactic Acid 2.8, Source-Septic Knee Joint. S /p Blood Cultures, follow up cultures, check repeat Lactic Acid back to normal. IVF Repeat blood cx On Ceftriaxone and Vancomycin- ID ff Left Knee Septic Joint: +erythema/swelling , X-ray with small suprapatellar knee joint effusion s/p knee joint aspiration Continue w/ treatment as above. -seen buy ortho- no further intervention Agitation/ withdrawals. On ativan. Restraints Elevated Trop: Trop 1.41, no acute EKG changes, no c/o chest pain, likely related to underlying Cocaine Abuse. Cardiology consulted, recommend to trend enzymes. Telemetry. Check serial cardiac enzymes for trend. Check Echo to eval for possible underlying endocarditis/myocarditis. Rhabdomyolysis: CPK 1479, IVF for hydration, FF CK levels ANDRZEJ: Creatinine 1.32, previously 0.81 on 03/25/16. U/a negative for UTI. + Cocaine. IVF, repeat labs pending Hyponatremia: imrpoved IVDU: Pt counselled. Demanding pain medication. Ativan prn for withdrawal. Severe protein calorie malnutrition low BMI, low albumin. Add ensure, MVT DVT Prophylaxis: SCD/Teds CM for d/c planning as needed. Problem Qualifiers (1) Sepsis: Qualified Codes: A41.9 - Sepsis, unspecified organism (2) Septic arthritis of knee, left: Qualified Codes: M00.9 - Pyogenic arthritis, unspecified (3) Rhabdomyolysis: Qualified Codes: M62.82 - Rhabdomyolysis Gael Conde MD September 24, 2017 14:17
--- NOTE | 2017-09-24 14:28 | RADRPT ---
EXAM DATE/TIME: 09/24/2017 13:46 [facility] COMPARISON: No previous studies available for comparison. INDICATIONS : Septic emboli. IV CONTRAST: 96 cc Omnipaque 350 (iohexol) IV ; Cumulative dose for multiple exams. RADIATION DOSE: 5.10 CTDIvol (mGy) ; Combined studies - Thorax/Abdomen/Pelvis MEDICAL HISTORY : None SURGICAL HISTORY : None. ENCOUNTER: Initial ACUITY: 1 day PAIN SCALE: 0/10 LOCATION: chest TECHNIQUE: Volumetric scanning of the chest was performed. Using automated exposure control and adjustment of t he mA and/or kV according to patient size, radiation dose was kept as low as reasonably achievable to obtain optimal diagnostic quality images. DICOM format image data is available electronically for review and comparison. Follow-up recommendations for detected pulmonary nodules are based at a minimum on nodule size and pa tient risk factors according to Fleischner Society Guidelines. FINDINGS: LUNGS: There is a 6 mm nodule in the anterior lateral right upper lobe. The left lung is clear. There is no evidence of infiltrate. PLEURA: There is no pleural thickening or pleural effusion. MEDIASTINUM: The heart and great vessels demonstrate no acute abnormality. There is no mediastinal or hilar lymph adenopathy. AXILLAE: Within normal limits. No lymphadenopathy. SKELETAL: Within normal limits for patient age. MISCELLANEOUS: In the visualized upper abdomen there are couple of peripheral hypodensities in the spleen which may be areas of infarction. The spleen is mildly enlarged. CONCLUSION: 6 mm right upper lobe lung nodule. Possible splenic infarcts. Radames Moyer MD on September 24, 2017 at 14:20 Board Certified Radiologist. This report was verified electronically.
[2017-09-24] MEDS ORDERED: POTASSIUM BICARBONATE 25 MEQ EFFERVESCENT TAB PO ONE (14:30)
--- NOTE | 2017-09-24 14:45 | RADRPT ---
EXAM DATE/TIME: 09/24/2017 13:46 [place] COMPARISON: No previous studies available for comparison. INDICATIONS : Evaluate for abscess. IV CONTRAST: 90 cc Omnipaque 350 (iohexol) IV ; Cumulative dose for multiple exams. ORAL CONTRAST: Prescribed oral contrast ingested. RADIATION DOSE: 5.01 CTDIvol (mGy) ; Combined studies - Thorax/Abdomen/Pelvis MEDICAL HISTORY : None SURGICAL HISTORY : None. ENCOUNTER: Initial ACUITY: 1 day PAIN SCALE: 0/10 LOCATION: abdomen TECHNIQUE: Volumetric scanning of the abdomen and pelvis was performed. Using automated exposure control and ad justment of the mA and/or kV according to patient size, radiation dose was kept as low as reasonably achievable to obtain optimal diagnostic quality images. DICOM format image data is available electro nically for review and comparison. FINDINGS: LOWER LUNGS: The visualized lower lungs are clear. LIVER: Homogeneous density without lesion. There is no dilation of the biliary tree. Tiny focus of calcific ation involving the posterior lateral gallbladder fundus region. Mild gallbladder wall thickening.. SPLEEN: Multiple areas of peripheral hypodensity consistent with splenic infarcts. Borderline size. PANCREAS: Within normal limits. KIDNEYS: Small area of diminished peripheral cortical contrast enhancement involving the posterior lateral low er pole cortex of the right kidney consistent with renal infarction. Left kidney is unremarkable. No evidence of hydronephrosis or stone. ADRENAL GLANDS: Within normal limits. VASCULAR: There is no aortic aneurysm. BOWEL/MESENTERY: The stomach, small bowel, and colon demonstrate no acute abnormality. There is no free intraperitone al air or fluid. ABDOMINAL WALL: Within normal limits. RETROPERITONEUM: There is no lymphadenopathy. BLADDER: No wall thickening or mass. REPRODUCTIVE: Within normal limits. INGUINAL: There is no lymphadenopathy or hernia. MUSCULOSKELETAL: Within normal limits for patient age. CONCLUSION: Probable splenic infarcts. Right renal infarct. Tiny gallstone. Mild gallbladder wall thickening in nondistended gallbladder, nonspecific Radames Moyer MD on September 24, 2017 at 14:27 Board Certified Radiologist. This report was verified electronically.
--- NOTE | 2017-09-24 14:54 | HHI.IDPN ---
Subjective Subjective Remarks This is a 41yr old female with a past medical history of IVDU with cocaine and Dilaudid who presented to [facility] ED with complaints of left knee pain, generalized malaise and fever. Patient found to have sepsis with elevated temperature 101.5, tachycardia with HR 135, elevated lactic acid of 2.8 and source of septic knee joint. UDS was positive for cocaine. Xray of the left knee revealed suprapatellar knee joint effusion. She underwent left knee joint aspiration in the ED with purulent fluid removed with synovial fluid with 29, 700 WBC and 97 neutrophils. Gram stain shows moderate WBCs and no organisms. Patient was started on IV Vancomycin and Zosyn. Patient was seen in consultation by orthopedics who had considered surgical intervention but have decided to monitor aspirate due to no growth of organisms before proceeding with arthrotomy. She was also noted to have elevated troponins and was seen in consultation by cardiology who is concerned about possible endocarditis and has ordered a 2D echocardiogram. Blood cultures were obtained and grew GPC in 3/4 bottles and Group A Beta Strep in 1/4 bottles. Patient has been seen by psychiatry for delirium with altered mental status secondary to polysubstance abuse and sepsis and has deemed her lacking capacity to make her own medical decisions. Infectious disease has been consulted for evaluation and management of sepsis and bacteremia. Her most recent vital signs are significant for fever of 100.3 , tachycardia with HR of 110 and RR 36. Lactic acid this am was 1.9 and white count was WNL. ESR elevated at 76 and CRP was 18. Patient seen and examination attempted but patient appears lethargic and uncooperative with exam. She will not answer any questions or follow any commands. With attempts at tactile stimuli, she uses profanity and yells to "leave me the fuck alone". Overnight events noted Notes reviewed Patient sitting on side of bed in 2 point restraints, awake but appears lethargic appears confused, speaking nonsensically, not oriented Afebrile today ESR 78 CRP 18 BCX + GPC 3/4 bottles, + Group A Beta strep 1/4 Due to persistent altered mental status concern for septic emboli to the brain. Antibiotics IV Vancomycin IV Ceftriaxone Lines PIV with no e/o infection Past Medical History IVDU Allergies: Coded Allergies: No Known Allergies (Unverified Allergy, Unknown, 09/21/17) Objective . Vital Signs Date Time Temp Pulse Resp B/P (MAP) Pulse Ox O2 Delivery O2 Flow Rate FiO2 09/24/17 12:00 97.6 92 16 156/90 (112) 100 09/24/17 08:00 98.0 91 18 142/87 (105) 100 09/24/17 04:12 98.1 97 16 138/76 (96) 99 09/24/17 00:17 98.1 94 16 154/81 (105) 100 09/23/17 20:00 98.0 96 16 154/95 (114) 97 09/23/17 16:00 98.4 97 17 150/86 (107) 100 . Laboratory Tests Test 09/24/17 08:19 White Blood Count 6.5 TH/MM3 Red Blood Count 3.85 MIL/MM3 Hemoglobin 9.4 GM/DL Hematocrit 28.1 % Mean Corpuscular Volume 73.0 FL Mean Corpuscular Hemoglobin 24.4 PG Mean Corpuscular Hemoglobin Concent 33.4 % Red Cell Distribution Width 14.4 % Platelet Count 208 TH/MM3 Mean Platelet Volume 9.1 FL Neutrophils (%) (Auto) 71.1 % Lymphocytes (%) (Auto) 18.3 % Monocytes (%) (Auto) 9.3 % Eosinophils (%) (Auto) 0.8 % Basophils (%) (Auto) 0.5 % Neutrophils # (Auto) 4.6 TH/MM3 Lymphocytes # (Auto) 1.2 TH/MM3 Monocytes # (Auto) 0.6 TH/MM3 Eosinophils # (Auto) 0.1 TH/MM3 Basophils # (Auto) 0.0 TH/MM3 CBC Comment DIFF FINAL Differential Comment Laboratory Tests Test 09/23/17 15:10 09/24/17 08:19 Blood Urea Nitrogen 10 MG/DL 8 MG/DL Creatinine 0.70 MG/DL 0.53 MG/DL Random Glucose 84 MG/DL 86 MG/DL Calcium Level 7.7 MG/DL 8.1 MG/DL Sodium Level 138 MEQ/L 138 MEQ/L Potassium Level 2.8 MEQ/L 2.5 MEQ/L Chloride Level 104 MEQ/L 102 MEQ/L Carbon Dioxide Level 29.6 MEQ/L 25.5 MEQ/L Anion Gap 4 MEQ/L 11 MEQ/L Estimat Glomerular Filtration Rate 93 ML/MIN 128 ML/MIN C-Reactive Protein 9.88 MG/DL Microbiology Date/Time Source Procedure Growth Status 09/23/17 13:27 Blood Peripheral Aerobic Blood Culture - Preliminary NO GROWTH IN 1 DAY Resulted 09/23/17 13:27 Blood Peripheral Anaerobic Blood Culture - Preliminary NO GROWTH IN 1 DAY Resulted 09/23/17 13:15 Blood Peripheral Aerobic Blood Culture - Preliminary NO GROWTH IN 1 DAY Resulted 09/23/17 13:15 Blood Peripheral Anaerobic Blood Culture - Preliminary NO GROWTH IN 1 DAY Resulted 09/21/17 19:25 Blood Peripheral Aerobic Blood Culture - Final Group A Beta Strep Complete 09/21/17 19:25 Anaerobic Blood Culture - Final Group A Beta Strep Complete 09/21/17 19:20 Blood Peripheral Aerobic Blood Culture - Final Group A Beta Strep Complete 09/21/17 19:20 Anaerobic Blood Culture - Final Group A Beta Strep Complete 09/21/17 21:57 Fluid Synovial Fluid Gram Stain - Final Complete 09/21/17 21:57 Fluid Synovial Fluid Body Fluid Culture - Final NO GROWTH IN 72 HRS.--AEROBICALLY OR ... Complete Imaging Last Impressions Head CT 09/21/171932 Signed Impressions: Service Date/Time: Thursday, September 21, 2017 19:53 - CONCLUSION: No acute disease. Ethan Salas MD Knee X-Ray 09/21/171916 Signed Impressions: Service Date/Time: Thursday, September 21, 2017 19:20 - CONCLUSION: Small suprapatellar knee joint effusion. Ethan Salas MD Chest X-Ray 09/21/171911 Signed Impressions: Service Date/Time: Thursday, September 21, 2017 19:17 - CONCLUSION: No acute disease. Ethan Salas MD Physical Exam GENERAL: This is a thin cachetic unkempt female patient who appears much older than stated age, in no apparent distress. In 2 point soft restraints. Confused, disorganized thought process. SKIN: Warm and dry. + track recinos. HEAD: Atraumatic. Normocephalic. No temporal or scalp tenderness. EYES: PERRLA. No scleral icterus. ENT: Nose without bleeding or purulent drainage. Airway patent. NECK: Trachea midline. CARDIOVASCULAR: Tachycardic without murmurs, gallops, or rubs. RESPIRATORY: Poor effort. Clear to auscultation. Breath sounds equal bilaterally. No wheezes, rales, or rhonchi. GASTROINTESTINAL: Abdomen soft, non-tender, nondistended. MUSCULOSKELETAL: Extremities without clubbing, cyanosis, or edema. Right knee with area of erythema anteriorly. +warmth. Appears uncomfortable with examination of right knee. No calf tenderness. NEUROLOGICAL: Awake but somewhat lethargic. Moves all extremities. Unable to have any meaningful conversation. PSYCHIATRIC: Confused, completely disoriented. Disorganized thought process. Tangential speech. Calm, cooperative with exam. 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 Septic multiple infarcts to spleen. Septic infarct right kidney. Acute metabolic encephalopathy concern for septic emboli as still lethargic and AMS. Concern for septic emboli to the brain Hepatitis C positive Recommendations Continue Ceftriaxone IV Continue Vanco IV for now. Follow cultures to adjust antibiotics. CT chest/abd/pelvis reviewed by me with evidence of splenic as well as renal infarcts. These need to be followed especially if patient continues to have fevers and white count is these could end up turning into abscesses. Follow 2 D ECHO MRI brain with and without contrast concern for septic emboli to brain. If AMS persists will consider LP [place] if MRI abnormal Patient's family including mother and 2 sisters with the room. Patient's mother reports to me that patient's does not want to be involved in the care of Ms. Webster. Reportedly patient and her have been for the last 1 year but reportedly still . Palliative care on board to help sort out healthcare surrogate issues. Clinically does not appear to be fit enough to make her own decisions at the present time. Dr. Javier to cover for me from September 25 - September 27 and then on-call Agnes Ibrahim MD., MD September 24, 2017 14:54
--- NOTE | 2017-09-24 15:31 | HHI.HCPN ---
Reason for visit a. To assist with evaluation and management of symptoms including: Pain, altered mental status b. To assist medical decision maker(s) with: better understanding of current medical conditions; weighing benefits/burdens of medical treatment options; making medical treatment decisions. Subjective/Interval History Follow-up visit medically necessary for symptom management and clarification of goals of care. Patient seen and examined in the room. Patient remains restrained with bilateral upper extremity soft restraints. Patient is lethargic , oriented to self with confusion. Patient trying to get out of bed. Patient complaining of generalized pain, requesting oxycodone. SBP 140s-150s. Remains afebrile. Hepatitis panel collected 09/23/17 positive for hepatitis C. Laboratory workup today revealing WBC 6.5, hemoglobin 9.4, hematocrit 28.1, platelet count 208, potassium 2.5, BUN/creatinine 8/0.53, calcium 8.1 patient underwent abdomen/pelvis CT, results pending. Chest CT today 09/24 revealed 6 mm right upper lobe lung nodule. Possible splenic infarcts. Telephone conversation with patient`s mother Theresa Webster. Explained to her that since patient`s is not readily available due to his current circumstances, she would be the next person to serve as patient`s health care proxy during this hospitalization. Patient`s mother agreeable. Discussed current patient's medical status. Patient's mother discussed how her daughter has struggled with drug addiction. Readdressed code status, discussed CPR limitations, complications and benefits. Patient's mother who had stated yesterday that if it was her choice she would make patient a DNR, mentioned that she has changed her mind today and would want everything done to keep her daughter alive. She elected full code. She does understand that patient is critically ill but is hopeful that she will be treated and get better. . Family/friend interactions Telephone conversation with patient's mother Theresa Webster . Advance Directives Living Will: Never completed Health Care Surrogate: Never completed Durable Power of Lab Support Service Tech: Never completed Advance Directive Specifics Health Care Surrogate(s): Health Care Proxy- Mother- Theresa Webster [phone] Spouse- Nelly Mtz currently incarcerated and is at [facility] [place] . Mr. Rico is not readily available to make medical decisions for his during this hospitalization. Medical proxy decision will therefore follow to patient's mother Theresa Webster. . Objective Vital Signs Date Time Temp Pulse Resp B/P (MAP) Pulse Ox O2 Delivery O2 Flow Rate FiO2 09/24/17 12:00 97.6 92 16 156/90 (112) 100 09/24/17 08:00 98.0 91 18 142/87 (105) 100 09/24/17 04:12 98.1 97 16 138/76 (96) 99 09/24/17 00:17 98.1 94 16 154/81 (105) 100 09/23/17 20:00 98.0 96 16 154/95 (114) 97 09/23/17 16:00 98.4 97 17 150/86 (107) 100 Intake & Output 09/24/17 09/24/17 07:00 19:00 Intake Total 240 ml Balance 240 ml Intake Oral 240 ml # Voids 6 # Bowel Movements 6 Physical Exam CONSTITUTIONAL/GENERAL: This is a disheveled lady who looks older that stated age. TUBES/LINES/DRAINS: PIV, Bilateral restraints SKIN: Ecchymoses on upper extremities. Multiple IV use tracks to legs and arms. No wounds seen anteriorly. Skin temperature appropriate. Not diaphoretic. HEAD: Atraumatic. Normocephalic. EYES: Pupils equal and round and reactive. Extraocular motions intact. No scleral icterus. No injection or drainage. Fundi not examined. ENT: Hearing grossly normal. No drainage from nose. Moist oral mucosa. NECK: Trachea midline. Supple, nontender. CARDIOVASCULAR: S1, S2 normal without murmurs, gallops, or rubs. No JVD. Peripheral pulses symmetric. RESPIRATORY/CHEST: Symmetric, unlabored respirations. Diminished in the bases. No wheezes, rales, or rhonchi. GASTROINTESTINAL: Abdomen soft, non-tender, nondistended. Bowel sounds present. MUSCULOSKELETAL: Extremities without clubbing, cyanosis. No calf tenderness. No mottling or clubbing. NEUROLOGICAL: Lethargic, not following commands but spontaneously moving all 4 extremities. Speech clear, using profanity. PSYCHIATRIC: Restless . Diagnostic Tests Laboratory Laboratory Tests Test 09/21/17 19:25 09/21/17 19:35 09/21/17 21:57 09/22/17 03:09 White Blood Count 9.9 TH/MM3 (4.0-11.0) 7.5 TH/MM3 (4.0-11.0) Red Blood Count 4.43 MIL/MM3 (4.00-5.30) 4.15 MIL/MM3 (4.00-5.30) Hemoglobin 11.1 GM/DL (11.6-15.3) 10.3 GM/DL (11.6-15.3) Hematocrit 32.9 % (35.0-46.0) 31.1 % (35.0-46.0) Mean Corpuscular Volume 74.3 FL (80.0-100.0) 74.8 FL (80.0-100.0) Mean Corpuscular Hemoglobin 25.1 PG (27.0-34.0) 24.8 PG (27.0-34.0) Mean Corpuscular Hemoglobin Concent 33.7 % (32.0-36.0) 33.2 % (32.0-36.0) Red Cell Distribution Width 14.1 % (11.6-17.2) 13.9 % (11.6-17.2) Platelet Count 201 TH/MM3 (150-450) 154 TH/MM3 (150-450) Mean Platelet Volume 9.0 FL (7.0-11.0) 8.7 FL (7.0-11.0) Neutrophils (%) (Auto) 88.2 % (16.0-70.0) 80.8 % (16.0-70.0) Lymphocytes (%) (Auto) 7.4 % (9.0-44.0) 10.2 % (9.0-44.0) Monocytes (%) (Auto) 4.2 % (0.0-8.0) 8.2 % (0.0-8.0) Eosinophils (%) (Auto) 0.0 % (0.0-4.0) 0.6 % (0.0-4.0) Basophils (%) (Auto) 0.2 % (0.0-2.0) 0.2 % (0.0-2.0) Neutrophils # (Auto) 8.7 TH/MM3 (1.8-7.7) 6.1 TH/MM3 (1.8-7.7) Lymphocytes # (Auto) 0.7 TH/MM3 (1.0-4.8) 0.8 TH/MM3 (1.0-4.8) Monocytes # (Auto) 0.4 TH/MM3 (0-0.9) 0.6 TH/MM3 (0-0.9) Eosinophils # (Auto) 0.0 TH/MM3 (0-0.4) 0.0 TH/MM3 (0-0.4) Basophils # (Auto) 0.0 TH/MM3 (0-0.2) 0.0 TH/MM3 (0-0.2) CBC Comment DIFF FINAL DIFF FINAL Differential Comment Erythrocyte Sedimentation Rate 78 mm/hr (0-20) Prothrombin Time 12.7 SEC (9.8-11.6) Prothromb Time International Ratio 1.3 RATIO Activated Partial Thromboplast Time 29.9 SEC (24.3-30.1) Blood Urea Nitrogen 18 MG/DL (7-18) 17 MG/DL (7-18) Creatinine 1.32 MG/DL (0.50-1.00) 1.05 MG/DL (0.50-1.00) Random Glucose 118 MG/DL (74-106) 90 MG/DL (74-106) Total Protein 8.2 GM/DL (6.4-8.2) 6.8 GM/DL (6.4-8.2) Albumin 2.4 GM/DL (3.4-5.0) 1.9 GM/DL (3.4-5.0) Calcium Level 7.9 MG/DL (8.5-10.1) 7.4 MG/DL (8.5-10.1) Alkaline Phosphatase 88 U/L (45-117) 69 U/L (45-117) Aspartate Amino Transf (AST/SGOT) 103 U/L (15-37) 71 U/L (15-37) Alanine Aminotransferase (ALT/SGPT) 40 U/L (10-53) 34 U/L (10-53) Total Bilirubin 0.5 MG/DL (0.2-1.0) 0.3 MG/DL (0.2-1.0) Sodium Level 121 MEQ/L (136-145) 136 MEQ/L (136-145) Potassium Level 3.1 MEQ/L (3.5-5.1) 3.3 MEQ/L (3.5-5.1) Chloride Level 83 MEQ/L (98-107) 99 MEQ/L (98-107) Carbon Dioxide Level 26.7 MEQ/L (21.0-32.0) 29.0 MEQ/L (21.0-32.0) Anion Gap 11 MEQ/L (5-15) 8 MEQ/L (5-15) Estimat Glomerular Filtration Rate 45 ML/MIN (>89) 58 ML/MIN (>89) Lactic Acid Level 2.8 mmol/L (0.4-2.0) 1.9 mmol/L (0.4-2.0) Total Creatine Kinase 1479 U/L (26-192) 850 U/L (26-192) Creatine Kinase MB 13.4 NG/ML (0.5-3.6) 13.0 NG/ML (0.5-3.6) Creatine Kinase MB % 0.9 % (0.0-4.0) 1.5 % (0.0-4.0) Troponin I 1.41 NG/ML (0.02-0.05) 1.19 NG/ML (0.02-0.05) C-Reactive Protein 18.00 MG/DL (0.00-0.30) Lipase 285 U/L (73-393) Thyroid Stimulating Hormone 3rd Gen 0.570 uIU/ML (0.358-3.740) Urine Color LIGHT-YELLOW (YELLW/STRAW) Urine Turbidity CLEAR (CLEAR) Urine pH 6.0 (5.0-8.5) Urine Specific [place] 1.005 (1.002-1.035) Urine Protein TRACE mg/dL (NEG-TRACE) Urine Glucose (UA) NEG mg/dL (NEG) Urine Ketones NEG mg/dL (NEG) Urine Occult Blood SMALL (NEG) Urine Nitrite NEG (NEG) Urine Bilirubin NEG (NEG) Urine Urobilinogen LESS THAN 2.0 MG/DL (LESS Urine Leukocyte Esterase NEG (NEG) Urine RBC LESS THAN 1 /hpf (0-3) Urine WBC 1 /hpf (0-5) Urine Squamous Epithelial Cells 1 /hpf (0-5) Urine Amorphous Sediment RARE Microscopic Urinalysis Comment CULT NOT INDICATED Urine Opiates Screen NEG (NEG) Urine Barbiturates Screen NEG (NEG) Urine Amphetamines Screen NEG (NEG) Urine Benzodiazepines Screen NEG (NEG) Urine Cocaine Screen POS (NEG) Urine Cannabinoids Screen NEG (NEG) Synovial Fluid Color STRAW (STRAW) Synovial Fluid Appearance MARKED (CLEAR) Synovial Fluid WBC 63996 /MM3 (0-200) Synovial Fluid RBC 2700 /MM3 (0-0) Synovial Fluid Neutrophils 97 % (0-25) Synovial Fluid Lymphocytes 1 % Synovial Fluid Monocytes 2 % Synovial Fluid Crystals NONE (NONE) Protein Corrected Calcium 7.6 MG/DL (8.5-10.1) Test 09/23/17 15:10 09/24/17 08:19 Blood Urea Nitrogen 10 MG/DL (7-18) 8 MG/DL (7-18) Creatinine 0.70 MG/DL (0.50-1.00) 0.53 MG/DL (0.50-1.00) Random Glucose 84 MG/DL (74-106) 86 MG/DL (74-106) Calcium Level 7.7 MG/DL (8.5-10.1) 8.1 MG/DL (8.5-10.1) Sodium Level 138 MEQ/L (136-145) 138 MEQ/L (136-145) Potassium Level 2.8 MEQ/L (3.5-5.1) 2.5 MEQ/L (3.5-5.1) Chloride Level 104 MEQ/L (98-107) 102 MEQ/L (98-107) Carbon Dioxide Level 29.6 MEQ/L (21.0-32.0) 25.5 MEQ/L (21.0-32.0) Anion Gap 4 MEQ/L (5-15) 11 MEQ/L (5-15) Estimat Glomerular Filtration Rate 93 ML/MIN (>89) 128 ML/MIN (>89) C-Reactive Protein 9.88 MG/DL (0.00-0.30) Rapid Plasma Reagin NON-REACTIVE (NON-REACTVE) Hepatitis A IgM Antibody NONREACTIVE (NONREACTIVE) Hepatitis B Surface Antigen NONREACTIVE (NONREACTIVE) Hepatitis B Core IgM Antibody NONREACTIVE (NONREACTIVE) Hepatitis C IgG Antibody REACTIVE (NONREACTIVE) HIV (1&2) Ab and P24 Ag, 4th Gener NONREACTIVE (NONREACTIVE) White Blood Count 6.5 TH/MM3 (4.0-11.0) Red Blood Count 3.85 MIL/MM3 (4.00-5.30) Hemoglobin 9.4 GM/DL (11.6-15.3) Hematocrit 28.1 % (35.0-46.0) Mean Corpuscular Volume 73.0 FL (80.0-100.0) Mean Corpuscular Hemoglobin 24.4 PG (27.0-34.0) Mean Corpuscular Hemoglobin Concent 33.4 % (32.0-36.0) Red Cell Distribution Width 14.4 % (11.6-17.2) Platelet Count 208 TH/MM3 (150-450) Mean Platelet Volume 9.1 FL (7.0-11.0) Neutrophils (%) (Auto) 71.1 % (16.0-70.0) Lymphocytes (%) (Auto) 18.3 % (9.0-44.0) Monocytes (%) (Auto) 9.3 % (0.0-8.0) Eosinophils (%) (Auto) 0.8 % (0.0-4.0) Basophils (%) (Auto) 0.5 % (0.0-2.0) Neutrophils # (Auto) 4.6 TH/MM3 (1.8-7.7) Lymphocytes # (Auto) 1.2 TH/MM3 (1.0-4.8) Monocytes # (Auto) 0.6 TH/MM3 (0-0.9) Eosinophils # (Auto) 0.1 TH/MM3 (0-0.4) Basophils # (Auto) 0.0 TH/MM3 (0-0.2) CBC Comment DIFF FINAL Differential Comment Result Diagram: 09/24/17 0819 09/24/17818 Microbiology Microbiology Date/Time Source Procedure Growth Status 09/23/17 13:27 Blood Peripheral Aerobic Blood Culture - Preliminary NO GROWTH IN 1 DAY Resulted 09/23/17 13:27 Blood Peripheral Anaerobic Blood Culture - Preliminary NO GROWTH IN 1 DAY Resulted 09/23/17 13:15 Blood Peripheral Aerobic Blood Culture - Preliminary NO GROWTH IN 1 DAY Resulted 09/23/17 13:15 Blood Peripheral Anaerobic Blood Culture - Preliminary NO GROWTH IN 1 DAY Resulted 09/21/17 19:25 Blood Peripheral Aerobic Blood Culture - Final Group A Beta Strep Complete 09/21/17 19:25 Anaerobic Blood Culture - Final Group A Beta Strep Complete 09/21/17 19:20 Blood Peripheral Aerobic Blood Culture - Final Group A Beta Strep Complete 09/21/17 19:20 Anaerobic Blood Culture - Final Group A Beta Strep Complete 09/21/17 21:57 Fluid Synovial Fluid Gram Stain - Final Complete 09/21/17 21:57 Fluid Synovial Fluid Body Fluid Culture - Final NO GROWTH IN 72 HRS.--AEROBICALLY OR ... Complete Imaging Last [address] 09/24/17 0000 Signed Impressions: Service Date/Time: Sunday, September 24, 2017 13:46 - CONCLUSION: 6 mm right upper lobe lung nodule. Possible splenic infarcts. Radames Moyer MD Assessment and Plan Disease Oriented Problem List: (1) Sepsis (2) Septic arthritis of knee, left (3) ANDRZEJ (acute kidney injury) (4) Elevated troponin (5) Hyponatremia (6) Substance induced mood disorder (7) Polysubstance dependence (8) IVDU (intravenous drug user) Symptom Scale: (1) Pain 0-10 Scale: Unable to quantify Comment: Generalized. Came in complaining of left knee pain. . (2) Altered mental state 0-10 Scale: Unable to quantify Comment: Most likely from delirium tremor. . Pertinent Non-Medical Issues Psychosocial:Patient was born and raised in [place]. Per EMR records dated 03/26/16 patient was . Patient worked in a fast food restaurant in the past. Spiritual: No uatsdin affiliation Legal: Never completed advance directives- Patient is but spouse is incarcerated and not readily available to serve as a proxy decision maker Ethical issues impacting care:None identified at this time . Important Contacts Mother- Theresa Webster- [phone] Sister- Smiley Allan- [phone] Sister-Lindsay Nina- [phone] Spouse- Nelly Mtz- Currently incarcerated- Had been from patient for a year . Prognosis Ms. Webster is a 41-year-old female with a past medical history of polysubstance abuse including IV intravenous drug use with cocaine/Dilaudid, and tobacco use. Patient presented to the ER on 09/21/17 complaining of left knee pain, fever and generalized malaise . Per ER report patient`s last Dilaudid use was the night prior to ER visit and had used cocaine on the day she came to the ER. She was also demanding pain medication in the ER.Clinical course complicated with delirium, sepsis and bacteremia. Given patient`s lifestyle choice and ongoing comorbidities, she remains at high risk for further complications, deterioration and decline. . Code Status: Full Code Plan PLAN: Legal decision maker: Patient is currently incapacitated to make medical decisions per Psychiatry. According to [place] Statute, patient`s mother Theresa Webster will serve as her health care proxy. Goals: Aggressive CODE STATUS: Full code by default Telephone conversation with patient`s mother Theresa Webster. Explained to her that since patient`s is not readily available due to his current circumstances, she would be the next person to serve as patient`s health care proxy during this hospitalization. Patient`s mother agreeable. Discussed current patient's medical status. Patient's mother discussed how her daughter has struggled with drug addiction. Readdressed code status, discussed CPR limitations, complications and benefits. Patient's mother who had stated yesterday that if it was her choice she would make patient a DNR, mentioned that she has changed her mind today and would want everything done to keep her daughter alive. She elected full code. She does understand that patient is critically ill but is hopeful that she will be treated and get better. SYMPTOMS: * Pain: Patient has a history of polysubstance abuse. Patient came in complaining left knee pain and requesting oxycodone in the ER. Currently complaining of generalized pain and requesting oxycodone. Oxycodone 5mg -10mg q 4 hrs prn for pain. Last dose administered on 09/21/17. No further recommendations. * Altered mental status: With a history of polysubstance abuse, and recent use. Patient may be going through withdrawal symptoms. Patient was put on CIWA protocol. Patient has received multiple doses of Lorazepam. Continue to monitor for worsening withdrawal symptoms. Palliative care will continue to follow the patient during hospital course as condition evolves, to assist patient/decision-maker with understanding of their medical conditions, weighing benefits/burdens of treatment options, for clarification of goals of treatment. Additionally will assist with any symptoms of palliative concern Attestation To help prompt me to consider important information that might be impacting today's encounter and assessment, information from prior notes written by myself or my colleagues may have been "brought forward" into today's note. My signature on this note, however, is an attestation that I personally performed the exam, history, and/or decision-making noted today, and, unless otherwise indicated, the interactions with patient, family, and staff as well as the review of records all occurred today. I also attest that the listed assessment and stated plan reflect my best clinical judgment today based on the combination of historical information, prior notes, and today's exam/ interactions. When time spent is documented, it refers only to time spent today by the signer, or if indicated, combined time spent today by collaborating physician/nurse practitioner. Haley Mccarthy September 24, 2017 15:31
[2017-09-24 16:00] VITALS: BP 154/102; PULSE 85; RESP 16; TEMP 97.9; O2SAT 100
[2017-09-24] MEDS: POTASSIUM CHLOR 10 MEQ PREMIX 100 ML IV SCH ×2 (16:47→22:19)
[2017-09-24 20:00] VITALS: BP 146/87; PULSE 94; RESP 16; TEMP 97.6; O2SAT 100
[2017-09-24] MEDS: cefTRIAXone INJ 2,000 MG in SODIUM CHLORIDE 0.9% INJ 100 ML IV SCH (22:18)
[2017-09-25] VITALS: BP 164/97; PULSE 101; RESP 20; TEMP 100; O2SAT 100
[2017-09-25] MEDS: POTASSIUM CHLOR 10 MEQ PREMIX 100 ML IV SCH ×4 (01:59→18:13)
[2017-09-25] MEDS: NS + KCL 20 MEQ INJ 1,000 ML IV SCH ×3 (02:46→21:21)
[2017-09-25 04:00] VITALS: BP 166/89; PULSE 101; RESP 18; TEMP 99.5; O2SAT 100
[2017-09-25] MEDS: VANCOMYCIN INJ 900 MG in SODIUM CHLOR 0.9% 250 ML INJ 250 ML IV SCH ×2 (04:21→18:13)
[2017-09-25] MEDS: LORazepam 2 MG/ML VIAL IV PUSH PRN (04:22)
[2017-09-25] MEDS: SODIUM CHLOR 0.9% 1000 ML INJ 1,000 ML IV SCH (04:24)
[2017-09-25 08:00] VITALS: BP 149/82; PULSE 95; RESP 17; TEMP 98.4; O2SAT 100
[2017-09-25 08:45] LABS: BICARBONATE 26.5 MEQ/L (21.0-32.0); CREATININE 0.64 MG/DL (0.50-1.00)
[2017-09-25] MEDS: LORazepam 1 MG TAB PO PRN (08:45)
[2017-09-25] MEDS: DOCUSATE SODIUM 50 MG/SENNA 8.6 MG TAB PO SCH ×2 (08:46→21:21)
[2017-09-25] MEDS: HALOPERIDOL 1 MG TAB PO SCH ×2 (08:46→21:20)
[2017-09-25] MEDS: MULTIVITAMIN TAB PO SCH (08:46)
[2017-09-25] MEDS: SODIUM CHLORIDE 0.9% FLUSH 10 ML FLUSH IV FLUSH SCH ×2 (08:46→21:21)
[2017-09-25] MEDS: ASPIRIN EC 81 MG TABEC PO SCH (08:46)
--- NOTE | 2017-09-25 10:23 | RADRPT ---
EXAM DATE/TIME: 09/25/2017 09:13 [facility] COMPARISON: CT ABDOMEN & PELVIS W CONTRAST, September 24, 2017, 13:46. CT BRAIN W/O CONTRAST, September 21, 2017, 19:53. INDICATIONS : Abscess. Septic emboli. MEDICAL HISTORY : Skull fracture. IVDA. SURGICAL HISTORY : Carpal tunnel. Left hand repair. ENCOUNTER: Subsequent ACUITY: 3 day PAIN SCORE: 0/10 LOCATION: head. TECHNIQUE: Multiplanar, multisequence MRI of the brain was performed without contrast. FINDINGS: The study is mildly degraded by patient motion. There are several areas of T2 prolongation in focally restricted diffusion in the left occipital valerie on consistent with recent infarcts, largest just above the tentorium in the inferior aspect of the le ft occipital lobe with smaller areas in a more cephalad level. There are no similar abnormalities in the contralateral right hemisphere. There is no evidence of mass or hemorrhage. The extracranial stru ctures are grossly benign and intact. CONCLUSION: Several subacute strokes in the left occipital region Radames Moyer MD on September 25, 2017 at 10:16 Board Certified Radiologist. This report was verified electronically.
[2017-09-25 12:00] VITALS: BP 149/91; PULSE 92; RESP 17; TEMP 97.9; O2SAT 100
--- NOTE | 2017-09-25 12:53 | HHI.PR ---
Subjective Remarks sleeping comfortably when awakened- complains of pain discussed with staff- ate breakfast well no reported well received Ativan earlier Objective Vitals Vital Signs Date Time Temp Pulse Resp B/P (MAP) Pulse Ox O2 Delivery O2 Flow Rate FiO2 09/25/17 08:00 98.4 95 17 149/82 (104) 100 09/25/17 04:00 99.5 101 18 166/89 (114) 100 09/25/17 00:00 100.0 101 20 164/97 (119) 100 09/24/17 20:00 97.6 94 16 146/87 (106) 100 09/24/17 16:00 97.9 85 16 154/102 (119) 100 I/O 09/24/17 09/24/17 09/24/17 09/25/17 09/25/17 09/25/17 07:00 15:00 23:00 07:00 15:00 23:00 Intake Total 240 ml 1276.5 ml 1750 ml Balance 240 ml 1276.5 ml 1750 ml Intake Oral 240 ml 720 ml 550 ml IV Total 556.5 ml 1200 ml # Voids 6 6 3 # Bowel Movements 6 3 2 Result Diagram: 09/24/17 0819 09/25/17 0735 Imaging Last Impressions Brain MRI 09/25/17 0000 Signed Impressions: Service Date/Time: Monday, September 25, 2017 09:13 - CONCLUSION: Several subacute strokes in the left occipital region Radames Moyer MD Chest CT 09/24/17 0000 Signed Impressions: Service Date/Time: Sunday, September 24, 2017 13:46 - CONCLUSION: 6 mm right upper lobe lung nodule. Possible splenic infarcts. Radames Moyer MD Abdomen/Pelvis CT 09/24/17 0000 Signed Impressions: Service Date/Time: Sunday, September 24, 2017 13:46 - CONCLUSION: Probable splenic infarcts. Right renal infarct. Tiny gallstone. Mild gallbladder wall thickening in nondistended gallbladder, nonspecific Radames Moyer MD Knee X-Ray 09/23/17 0000 Signed Impressions: Service Date/Time: Saturday, September 23, 2017 19:48 - CONCLUSION: 1. No acute findings. Roge Short MD Head CT 09/21/17 193 Signed Impressions: Service Date/Time: Thursday, September 21, 2017 19:53 - CONCLUSION: No acute disease. Ethan Salas MD Chest X-Ray 09/21/171911 Signed Impressions: Service Date/Time: Thursday, September 21, 2017 19:17 - CONCLUSION: No acute disease. Ethan Salas MD Objective Remarks awke, easily drifts to sleep moves all extremitiies spontaenously, ff some commands ken- multiple recinos, no nuchal rigidity no rales regular rhythm abdomen soft knee- no erythema- resolves, no swelling , moving /flexing more moves all extremities no calf swelling A/P Problem List: (1) Sepsis ICD Code: A41.9 - Sepsis, unspecified organism Status: Acute (2) Septic arthritis of knee, left ICD Code: M00.9 - Pyogenic arthritis, unspecified Status: Acute (3) Elevated troponin ICD Code: R74.8 - Abnormal levels of other serum enzymes Status: Acute (4) Rhabdomyolysis ICD Code: M62.82 - Rhabdomyolysis Status: Acute (5) Hyponatremia ICD Code: E87.1 - Hypo-osmolality and hyponatremia Status: Acute (6) ANDRZEJ (acute kidney injury) ICD Code: N17.9 - Acute kidney failure, unspecified (7) IVDU (intravenous drug user) ICD Code: F19.90 - Other psychoactive substance use, unspecified, uncomplicated Assessment and Plan S. Bacteremia/ sepsis with possible endocarditis on admission: Temp 101.5, HR 135, Lactic Acid 2.8, Source-Septic Knee Joint. S /p Blood Cultures, follow up cultures, check repeat Lactic Acid back to normal. IVF Repeat blood cx negative so far x 48 hours On Ceftriaxone and Vancomycin- ID ff Left Knee Septic Joint: +erythema/swelling , X-ray with small suprapatellar knee joint effusion s/p knee joint aspiration - clinically improving Continue w/ treatment as above. -seen by ortho- no further intervention Agitation/ withdrawals. On ativan. Restraints prn Elevated Trop: Trop 1.41, no acute EKG changes, no c/o chest pain, likely related to underlying Cocaine Abuse. Cardiology consulted, recommend to trend enzymes. Telemetry. Check serial cardiac enzymes for trend. Check Echo to eval for possible underlying endocarditis/myocarditis. Rhabdomyolysis: CPK 1479, IVF for hydration, FF CK levels ANDRZEJ: Creatinine 1.32, previously 0.81 on 03/25/16. U/a negative for UTI. + Cocaine. IVF, repeat labs improving Hypokalemia- replace IV- and ff Hyponatremia: imrpoved IVDU: Pt counselled. Demanding pain medication. Ativan prn for withdrawal. Severe protein calorie malnutrition low BMI, low albumin. Add ensure, MVT DVT Prophylaxis: SCD/Teds CM for d/c planning as needed. Problem Qualifiers (1) Sepsis: Qualified Codes: A41.9 - Sepsis, unspecified organism (2) Septic arthritis of knee, left: Qualified Codes: M00.9 - Pyogenic arthritis, unspecified (3) Rhabdomyolysis: Qualified Codes: M62.82 - Rhabdomyolysis Gael Conde MD September 25, 2017 12:53
--- NOTE | 2017-09-25 12:55 | HHI.HCPN ---
Reason for visit a. To assist with evaluation and management of symptoms including: Pain, altered mental status b. To assist medical decision maker(s) with: better understanding of current medical conditions; weighing benefits/burdens of medical treatment options; making medical treatment decisions. Subjective/Interval History Follow-up visit medically necessary for symptom management and clarification of goals of care. Patient seen and examined in her room. Bilateral soft restraints off. Patient is very sleepy, arousable and was only able to say, "I am very tired today". Patient not showing any signs of distress, discomfort or pain. Low-grade temp of 100F today-at midnight, otherwise vital signs stable. Patient evaluated by speech therapy today, recommended regular diet with thin liquids. Brain MRI on 09/25/17 revealed several subacute strokes in the left occipital region, no evidence of mass. Laboratory workup today revealing potassium 2.6, BUN/creatinine 4/0.64, random glucose 103, calcium 8.0. Brief telephone conversation with patient's mother Theresa, updated on patient's current medical status. Patient's mother stating that she has been in to visit patient today and she looks better than the past few days. Patient`s mother hopeful that patient will get better. Goals remain aggressive. . Family/friend interactions No family at bedside . Advance Directives Living Will: Never completed Health Care Surrogate: Never completed Durable Power of Javascript Web Developer: Never completed Advance Directive Specifics Health Care Surrogate(s): Health Care Proxy- Mother- Theresa Webster [phone] Spouse- Nelly Mtz currently incarcerated and is at [facility] . Mr. Rico is not readily available to make medical decisions for his during this hospitalization. Medical proxy decision will therefore follow to patient's mother Theresa Webster. . Objective Vital Signs Date Time Temp Pulse Resp B/P (MAP) Pulse Ox O2 Delivery O2 Flow Rate FiO2 09/25/17 08:00 98.4 95 17 149/82 (104) 100 09/25/17 04:00 99.5 101 18 166/89 (114) 100 09/25/17 00:00 100.0 101 20 164/97 (119) 100 09/24/17 20:00 97.6 94 16 146/87 (106) 100 09/24/17 16:00 97.9 85 16 154/102 (119) 100 Intake & Output 09/25/17 09/25/17 07:00 19:00 Intake Total 2106.5 ml Balance 2106.5 ml Intake Oral 550 ml IV Total 1556.5 ml # Voids 3 # Bowel Movements 2 Physical Exam CONSTITUTIONAL/GENERAL: This is a disheveled lady who looks older that stated age, endorsing feeling tired. TUBES/LINES/DRAINS: PIV SKIN: Ecchymoses on upper extremities. Multiple IV use tracks to legs and arms. No wounds seen anteriorly. Skin temperature appropriate. Not diaphoretic. HEAD: Atraumatic. Normocephalic. EYES: Pupils equal and round and reactive. Extraocular motions intact. No scleral icterus. Fundi not examined. ENT: Hearing grossly normal. No drainage from nose. Moist oral mucosa. NECK: Trachea midline. Supple, nontender. CARDIOVASCULAR: S1, S2 normal without murmurs, gallops, or rubs. No JVD. Peripheral pulses symmetric. RESPIRATORY/CHEST: Symmetric, unlabored respirations. Diminished in the bases. No wheezes, rales, or rhonchi. GASTROINTESTINAL: Abdomen soft, non-tender, nondistended. Bowel sounds present. MUSCULOSKELETAL: Extremities without clubbing, cyanosis. No calf tenderness. No mottling or clubbing. Trace edema to left knee. NEUROLOGICAL: Lethargic, not following commands but spontaneously moving all 4 extremities. Speech clear. Endorsing feeling tired today PSYCHIATRIC: Calm. No agitation, hallucination. . Diagnostic Tests Laboratory Laboratory Tests Test 09/23/17 15:10 09/24/17 08:19 09/24/17 17:41 09/25/17 07:35 Blood Urea Nitrogen 10 MG/DL (7-18) 8 MG/DL (7-18) 4 MG/DL (7-18) Creatinine 0.70 MG/DL (0.50-1.00) 0.53 MG/DL (0.50-1.00) 0.64 MG/DL (0.50-1.00) Random Glucose 84 MG/DL (74-106) 86 MG/DL (74-106) 103 MG/DL (74-106) Calcium Level 7.7 MG/DL (8.5-10.1) 8.1 MG/DL (8.5-10.1) 8.0 MG/DL (8.5-10.1) Sodium Level 138 MEQ/L (136-145) 138 MEQ/L (136-145) 137 MEQ/L (136-145) Potassium Level 2.8 MEQ/L (3.5-5.1) 2.5 MEQ/L (3.5-5.1) 2.6 MEQ/L (3.5-5.1) Chloride Level 104 MEQ/L (98-107) 102 MEQ/L (98-107) 100 MEQ/L (98-107) Carbon Dioxide Level 29.6 MEQ/L (21.0-32.0) 25.5 MEQ/L (21.0-32.0) 26.5 MEQ/L (21.0-32.0) Anion Gap 4 MEQ/L (5-15) 11 MEQ/L (5-15) 11 MEQ/L (5-15) Estimat Glomerular Filtration Rate 93 ML/MIN (>89) 128 ML/MIN (>89) 103 ML/MIN (>89) C-Reactive Protein 9.88 MG/DL (0.00-0.30) Rapid Plasma Reagin NON-REACTIVE (NON-REACTVE) Hepatitis A IgM Antibody NONREACTIVE (NONREACTIVE) Hepatitis B Surface Antigen NONREACTIVE (NONREACTIVE) Hepatitis B Core IgM Antibody NONREACTIVE (NONREACTIVE) Hepatitis C IgG Antibody REACTIVE (NONREACTIVE) HIV (1&2) Ab and P24 Ag, 4th Gener NONREACTIVE (NONREACTIVE) White Blood Count 6.5 TH/MM3 (4.0-11.0) Red Blood Count 3.85 MIL/MM3 (4.00-5.30) Hemoglobin 9.4 GM/DL (11.6-15.3) Hematocrit 28.1 % (35.0-46.0) Mean Corpuscular Volume 73.0 FL (80.0-100.0) Mean Corpuscular Hemoglobin 24.4 PG (27.0-34.0) Mean Corpuscular Hemoglobin Concent 33.4 % (32.0-36.0) Red Cell Distribution Width 14.4 % (11.6-17.2) Platelet Count 208 TH/MM3 (150-450) Mean Platelet Volume 9.1 FL (7.0-11.0) Neutrophils (%) (Auto) 71.1 % (16.0-70.0) Lymphocytes (%) (Auto) 18.3 % (9.0-44.0) Monocytes (%) (Auto) 9.3 % (0.0-8.0) Eosinophils (%) (Auto) 0.8 % (0.0-4.0) Basophils (%) (Auto) 0.5 % (0.0-2.0) Neutrophils # (Auto) 4.6 TH/MM3 (1.8-7.7) Lymphocytes # (Auto) 1.2 TH/MM3 (1.0-4.8) Monocytes # (Auto) 0.6 TH/MM3 (0-0.9) Eosinophils # (Auto) 0.1 TH/MM3 (0-0.4) Basophils # (Auto) 0.0 TH/MM3 (0-0.2) CBC Comment DIFF FINAL Differential Comment Vancomycin Level Trough 8.0 MCG/ML (5.0-10.0) Result Diagram: 09/24/17 0819 09/25/17 0735 Microbiology Microbiology Date/Time Source Procedure Growth Status 09/23/17 13:27 Blood Peripheral Aerobic Blood Culture - Preliminary NO GROWTH IN 2 DAYS Resulted 09/23/17 13:27 Blood Peripheral Anaerobic Blood Culture - Preliminary NO GROWTH IN 2 DAYS Resulted 09/23/17 13:15 Blood Peripheral Aerobic Blood Culture - Preliminary NO GROWTH IN 2 DAYS Resulted 09/23/17 13:15 Blood Peripheral Anaerobic Blood Culture - Preliminary NO GROWTH IN 2 DAYS Resulted Imaging Last 24 hours Impressions Brain MRI 09/25/17 0000 Signed Impressions: Service Date/Time: Monday, September 25, 2017 09:13 - CONCLUSION: Several subacute strokes in the left occipital region Radames Moyer MD Assessment and Plan Disease Oriented Problem List: (1) Sepsis (2) Septic arthritis of knee, left (3) ANDRZEJ (acute kidney injury) (4) Elevated troponin (5) Hyponatremia (6) Substance induced mood disorder (7) Polysubstance dependence (8) IVDU (intravenous drug user) Symptom Scale: (1) Pain 0-10 Scale: Unable to quantify Comment: Generalized. Came in complaining of left knee pain. . (2) Altered mental state 0-10 Scale: Unable to quantify Comment: Most likely from delirium tremor. . Pertinent Non-Medical Issues Psychosocial:Patient was born and raised in [place]. Per EMR records dated 03/26/16 patient was . Patient worked in a fast food restaurant in the past. Spiritual: No caodaism affiliation Legal: Never completed advance directives- Patient is but spouse is incarcerated and not readily available to serve as a proxy decision maker Ethical issues impacting care:None identified at this time . Important Contacts Mother- Theresa Webster- [phone] Sister- Smiley Allan- [phone] Sister-Lindsay Nina- [phone] Spouse- Nelly Mtz- Currently incarcerated- Had been from patient for a year . Prognosis Ms. Webster is a 41-year-old female with a past medical history of polysubstance abuse including IV intravenous drug use with cocaine/Dilaudid, and tobacco use. Patient presented to the ER on 09/21/17 complaining of left knee pain, fever and generalized malaise . Per ER report patient`s last Dilaudid use was the night prior to ER visit and had used cocaine on the day she came to the ER. She was also demanding pain medication in the ER.Clinical course complicated with delirium, sepsis and bacteremia. Given patient`s lifestyle choice and ongoing comorbidities, she remains at high risk for further complications, deterioration and decline. . Code Status: Full Code Plan PLAN: Legal decision maker: Patient is currently incapacitated to make medical decisions per Psychiatry. According to [place] Statute, patient`s mother Theresa Webster will serve as her health care proxy. Goals: Aggressive CODE STATUS: Full code by default Brief telephone conversation with patient's mother Theresa, updated on patient's current medical status. Patient's mother stating that she has been in to visit patient today and she looks better than the past few days. Patient`s mother hopeful that patient will get better. Goals remain aggressive. SYMPTOMS: * Pain: Patient has a history of polysubstance abuse. Patient came in complaining left knee pain and requesting oxycodone in the ER. Currently complaining of generalized pain and requesting oxycodone. Oxycodone 5mg -10mg q 4 hrs prn for pain. Last dose administered on 09/21/17. Patient not showing any signs of pain or discomfort. No further recommendations. * Altered mental status: With a history of polysubstance abuse, and recent use. Patient may be going through withdrawal symptoms. Patient was put on CIWA protocol. Patient has received multiple doses of Lorazepam. Patient currently calm with no restraints. Continue to monitor. Palliative care will continue to follow the patient during hospital course as condition evolves, to assist patient/decision-maker with understanding of their medical conditions, weighing benefits/burdens of treatment options, for clarification of goals of treatment. Additionally will assist with any symptoms of palliative concern Attestation To help prompt me to consider important information that might be impacting today's encounter and assessment, information from prior notes written by myself or my colleagues may have been "brought forward" into today's note. My signature on this note, however, is an attestation that I personally performed the exam, history, and/or decision-making noted today, and, unless otherwise indicated, the interactions with patient, family, and staff as well as the review of records all occurred today. I also attest that the listed assessment and stated plan reflect my best clinical judgment today based on the combination of historical information, prior notes, and today's exam/ interactions. When time spent is documented, it refers only to time spent today by the signer, or if indicated, combined time spent today by collaborating physician/nurse practitioner. Haley Mccarthy September 25, 2017 12:54
--- NOTE | 2017-09-25 14:00 | HHI.IDPN ---
Subjective Subjective Remarks ID COVERAGE This is a 41yr old female with a past medical history of IVDU with cocaine and Dilaudid who presented to [facility] ED with complaints of left knee pain, generalized malaise and fever. Patient found to have sepsis with elevated temperature 101.5, tachycardia with HR 135, elevated lactic acid of 2.8 and source of septic knee joint. UDS was positive for cocaine. Xray of the left knee revealed suprapatellar knee joint effusion. She underwent left knee joint aspiration in the ED with purulent fluid removed with synovial fluid with 29, 700 WBC and 97 neutrophils. Gram stain shows moderate WBCs and no organisms. Patient was started on IV Vancomycin and Zosyn. Patient was seen in consultation by orthopedics who had considered surgical intervention but have decided to monitor aspirate due to no growth of organisms before proceeding with arthrotomy. She was also noted to have elevated troponins and was seen in consultation by cardiology who is concerned about possible endocarditis and has ordered a 2D echocardiogram. Blood cultures were obtained and grew GPC in 3/4 bottles and Group A Beta Strep in 1/4 bottles. Patient has been seen by psychiatry for delirium with altered mental status secondary to polysubstance abuse and sepsis and has deemed her lacking capacity to make her own medical decisions. Infectious disease has been consulted for evaluation and management of sepsis and bacteremia. Her most recent vital signs are significant for fever of 100.3 , tachycardia with HR of 110 and RR 36. Lactic acid this am was 1.9 and white count was WNL. ESR elevated at 76 and CRP was 18. Patient seen and examination attempted but patient appears lethargic and uncooperative with exam. She will not answer any questions or follow any commands. With attempts at tactile stimuli, she uses profanity and yells to "leave me the fuck alone". Notes reviewed Temps low grade Awake and interactive today CT A/P with splenic infarct and kidney infarct MRI brain with several subacute infarct on L side BC 09/21 GAS BC 09/23 negative No echo report seen yet L knee better ESR 78 CRP 18 Antibiotics IV Vancomycin IV Ceftriaxone Current Medications Medications (Trade) Dose Ordered Sig/Radha Route Start Time Stop Time Status Last Admin Potassium Chloride/Sodium Chloride 1,000 ml @ 125 mls/hr Q8H IV 09/21/17 21:00 09/25/17 02:46 (NS Flush) 2 ml UNSCH PRN IV FLUSH 09/21/17 22:30 (NS Flush) 2 ml BID IV FLUSH 09/22/17 09:00 09/24/17 08:59 (Zofran Inj) 4 mg Q6H PRN IVP 09/21/17 22:30 (Tylenol) 650 mg Q6H PRN PO 09/21/17 22:30 09/22/17 15:21 (Roxicodone) 10 mg Q4H PRN PO 09/21/17 22:30 09/25/17 13:21 (Roxicodone) 5 mg Q4H PRN PO 09/21/17 22:30 (Silvia-Colace) 1 tab BID PO 09/22/17 09:00 09/25/17 08:46 (Milk Of Magnesia Liq) 30 ml Q12H PRN PO 09/21/17 22:30 (Senokot) 17.2 mg Q12H PRN PO 09/21/17 22:30 (Dulcolax Supp) 10 mg DAILY PRN RECTAL 09/21/17 22:30 (Lactulose Liq) 30 ml DAILY PRN PO 09/21/17 22:30 (Theragran) 1 tab DAILY PO 09/22/17 09:00 09/25/17 08:46 (Ecotrin Ec) 81 mg DAILY PO 09/22/17 09:30 09/25/17 08:46 (Romazicon Inj) 0.2 mg Q1M PRN IV PUSH 09/22/17 15:00 (Haldol Inj) 2 mg Q15M PRN IM 09/22/17 15:00 Pharmacy Profile Note 0 ml @ 0 mls/hr UNSCH OTHER 09/22/17 17:00 (Haldol) 1 mg BID PO 09/23/17 10:30 09/25/17 08:46 Ceftriaxone Sodium 2000 mg/ Sodium Chloride 100 ml @ 200 mls/hr Q24H IV 09/24/17 21:00 09/24/17 22:18 Vancomycin HCl 900 mg/Sodium Chloride 259 ml @ 250 mls/hr Q12H IV 09/25/17 06:00 09/25/17 04:21 ([facility] Ordered Lab Info) SPECIFIC LAB TO BE DRAWN:NEFTALY TROUGH DATE TO BE DRDominic. ONCE ONCE .XX 09/26/17 05:45 09/26/17 05:46 Potassium Chloride 100 ml @ 100 mls/hr Q1H IV 09/25/17 13:00 09/25/17 15:59 UNV (Effer-K Eff) 25 meq ONCE ONCE PO 09/25/17 21:00 09/25/17 21:01 UNV Lines PIV with no e/o infection Past Medical History IVDU Allergies: Coded Allergies: No Known Allergies (Unverified Allergy, Unknown, 09/21/17) Objective . Vital Signs Date Time Temp Pulse Resp B/P (MAP) Pulse Ox O2 Delivery O2 Flow Rate FiO2 09/25/17 08:00 98.4 95 17 149/82 (104) 100 09/25/17 04:00 99.5 101 18 166/89 (114) 100 09/25/17 00:00 100.0 101 20 164/97 (119) 100 09/24/17 20:00 97.6 94 16 146/87 (106) 100 09/24/17 16:00 97.9 85 16 154/102 (119) 100 . Laboratory Tests Test 09/24/17 08:19 White Blood Count 6.5 TH/MM3 Red Blood Count 3.85 MIL/MM3 Hemoglobin 9.4 GM/DL Hematocrit 28.1 % Mean Corpuscular Volume 73.0 FL Mean Corpuscular Hemoglobin 24.4 PG Mean Corpuscular Hemoglobin Concent 33.4 % Red Cell Distribution Width 14.4 % Platelet Count 208 TH/MM3 Mean Platelet Volume 9.1 FL Neutrophils (%) (Auto) 71.1 % Lymphocytes (%) (Auto) 18.3 % Monocytes (%) (Auto) 9.3 % Eosinophils (%) (Auto) 0.8 % Basophils (%) (Auto) 0.5 % Neutrophils # (Auto) 4.6 TH/MM3 Lymphocytes # (Auto) 1.2 TH/MM3 Monocytes # (Auto) 0.6 TH/MM3 Eosinophils # (Auto) 0.1 TH/MM3 Basophils # (Auto) 0.0 TH/MM3 CBC Comment DIFF FINAL Differential Comment Laboratory Tests Test 09/23/17 15:10 09/24/17 08:19 09/25/17 07:35 Blood Urea Nitrogen 10 MG/DL 8 MG/DL 4 MG/DL Creatinine 0.70 MG/DL 0.53 MG/DL 0.64 MG/DL Random Glucose 84 MG/DL 86 MG/DL 103 MG/DL Calcium Level 7.7 MG/DL 8.1 MG/DL 8.0 MG/DL Sodium Level 138 MEQ/L 138 MEQ/L 137 MEQ/L Potassium Level 2.8 MEQ/L 2.5 MEQ/L 2.6 MEQ/L Chloride Level 104 MEQ/L 102 MEQ/L 100 MEQ/L Carbon Dioxide Level 29.6 MEQ/L 25.5 MEQ/L 26.5 MEQ/L Anion Gap 4 MEQ/L 11 MEQ/L 11 MEQ/L Estimat Glomerular Filtration Rate 93 ML/MIN 128 ML/MIN 103 ML/MIN C-Reactive Protein 9.88 MG/DL Microbiology Date/Time Source Procedure Growth Status 09/23/17 13:27 Blood Peripheral Aerobic Blood Culture - Preliminary NO GROWTH IN 2 DAYS Resulted 09/23/17 13:27 Blood Peripheral Anaerobic Blood Culture - Preliminary NO GROWTH IN 2 DAYS Resulted 09/23/17 13:15 Blood Peripheral Aerobic Blood Culture - Preliminary NO GROWTH IN 2 DAYS Resulted 09/23/17 13:15 Blood Peripheral Anaerobic Blood Culture - Preliminary NO GROWTH IN 2 DAYS Resulted Imaging Last Impressions Head CT 09/21/171932 Signed Impressions: Service Date/Time: Thursday, September 21, 2017 19:53 - CONCLUSION: No acute disease. Ethan Salas MD Knee X-Ray 09/21/171916 Signed Impressions: Service Date/Time: Thursday, September 21, 2017 19:20 - CONCLUSION: Small suprapatellar knee joint effusion. Ethan Salas MD Chest X-Ray 09/21/171911 Signed Impressions: Service Date/Time: Thursday, September 21, 2017 19:17 - CONCLUSION: No acute disease. Ethan Salas MD Physical Exam GENERAL: This is a thin female, awake and alert, interactive, not in distress SKIN: Warm and dry. + track recinos. HEAD: Atraumatic. Normocephalic. No temporal or scalp tenderness. EYES: PERRLA. No scleral icterus. ENT: Nose without bleeding or purulent drainage. Airway patent. NECK: Trachea midline. CARDIOVASCULAR: Tachycardic without murmurs, gallops, or rubs. RESPIRATORY: Poor effort. Clear to auscultation. Breath sounds equal bilaterally. No wheezes, rales, or rhonchi. GASTROINTESTINAL: Abdomen soft, non-tender, nondistended. MUSCULOSKELETAL: Extremities without clubbing, cyanosis, or edema. Left knee with area of erythema, minimal warmt. No calf tenderness. NEUROLOGICAL: Awake and alert. Moves all extremities, speech clear, non-focal PSYCHIATRIC: Calm, cooperative with exam. 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 - more of L sided IE Septic multiple infarcts to spleen. Septic infarct right kidney. Subacute brain infarct L Hepatitis C positive Mental status better today Recommendations Continue Ceftriaxone IV Continue Vanco IV for now. Follow cultures to adjust antibiotics. Repeat BC Await 2 D-echo Follow temps Monitor progress D/W Kassandra Sierra MD September 25, 2017 14:00
[2017-09-25 16:00] VITALS: BP 114/70; PULSE 92; RESP 17; TEMP 98.1; O2SAT 100
[2017-09-25 20:00] VITALS: BP 157/91; PULSE 104; PULSE 105; RESP 18; TEMP 99; O2SAT 100
--- NOTE | 2017-09-25 20:04 | ECHRPT ---
Indication: Acute and subacute endocarditis, unspecified CONCLUSIONS Normal left ventricular size and wall thickness. The left ventricular systolic function is normal with an estimated ejection fraction in the range of 60-65%. Left ventricular diastolic function parameters are normal. Mild to moderate mitral valve regurgitation. The mobile echo density is located on the anterior mitral valve leaflet c/w valvular vegetation. Mild aortic valve regurgitation. There is mild to moderate tricuspid valve regurgitation. The estimated pulmonary arterial pressure is 36 mmHg. A left sided pleural effusion is present. There is a small pericardial effusion present. BP: 147 / 86 HR: 122 Rhythm: Sinus MEASUREMENTS (Male / Female) Normal Values Technical Quality:Good 2D ECHO LV Diastolic Diameter PLAX 4.2 cm 4.2 - 5.9 / 3.9 - 5.3 cm LV Systolic Diameter PLAX 3.2 cm IVS Diastolic Thickness 1.0 cm 0.6 - 1.0 / 0.6 - 0.9 cm LVPW Diastolic Thickness 1.0 cm 0.6 - 1.0 / 0.6 - 0.9 cm LV Relative Wall Thickness 0.5 LVOT Diameter 2.0 cm M-MODE Aortic Root Diameter MM 2.7 cm LA Systolic Diameter MM 3.5 cm LA Ao Ratio MM 1.3 AV Cusp Separation MM 1.8 cm DOPPLER AV Peak Velocity 145.0 cm/s AV Peak Gradient 8.4 mmHg AI Peak Velocity 378.0 cm/s AI Peak Gradient 57.2 mmHg AI Pressure Half Time 553.0 ms LVOT Peak Velocity 121.0 cm/s LVOT Peak Gradient 5.9 mmHg AV Area Cont Eq pk 2.6 cm MR Peak Velocity 574.0 cm/s MR Peak Gradient 131.8 mmHg Mitral E Point Velocity 113.0 cm/s Mitral A Point Velocity 137.0 cm/s Mitral E to A Ratio 0.8 LV E' Lateral Velocity 14.9 cm/s Mitral E to LV E' Lateral Ratio 7.6 LV E' Septal Velocity 10.3 cm/s Mitral E to LV E' Septal Ratio 11.0 TR Peak Velocity 257.0 cm/s TR Peak Gradient 26.4 mmHg Right Atrial Pressure 10.0 mmHg Pulmonary Artery Systolic Pressu 36.4 mmHg Right Ventricular Systolic Press 36.4 mmHg PV Peak Velocity 111.0 cm/s PV Peak Gradient 4.9 mmHg FINDINGS LEFT VENTRICLE Normal left ventricular size and wall thickness. The left ventricular systolic function is normal wi th an estimated ejection fraction in the range of 60-65%. Left ventricular diastolic function parameters a re normal. RIGHT VENTRICLE Normal right ventricular size and systolic function. LEFT ATRIUM The left atrial size is normal. RIGHT ATRIUM The right atrial size is normal. ATRIAL SEPTUM Normal atrial septal thickness without atrial level shunting by limited color doppler interrogation. AORTA The aortic root and proximal ascending aorta are normal in size on limited imaging. MITRAL VALVE Mild to moderate mitral valve regurgitation. The mobile echodensity is located on the anterior mitral valve leaflet c/w valvular vegetation (1.7 x 1.1 cm) AORTIC VALVE Mild aortic valve regurgitation. TRICUSPID VALVE There is mild to moderate tricuspid valve regurgitation. The estimated pulmonary arterial pressure is 36.4 mmHg. PULMONARY VALVE No pulmonary valve regurgitation or stenosis. VESSELS The inferior vena cava is normal in size. PERICARDIUM A left sided pleural effusion is present. There is a small pericardial effusion present. Parvez Kilpatrick MD, FACC (Electronically Signed) Final Date:25 Sep 2017 20:04
[2017-09-25] MEDS ORDERED: POTASSIUM BICARBONATE 25 MEQ EFFERVESCENT TAB PO ONE (21:00)
[2017-09-25] MEDS: cefTRIAXone INJ 2,000 MG in SODIUM CHLORIDE 0.9% INJ 100 ML IV SCH (21:20)
[2017-09-26] VITALS: BP 124/73; PULSE 112; RESP 20; O2SAT 95
[2017-09-26 04:00] VITALS: BP 149/95; PULSE 104; PULSE 109; RESP 20; TEMP 98.5; O2SAT 100
[2017-09-26] MEDS ORDERED: PHARMACY ORDERED LAB ONE (05:45)
[2017-09-26] MEDS: NS + KCL 20 MEQ INJ 1,000 ML IV SCH ×3 (06:20→23:09)
[2017-09-26] MEDS: VANCOMYCIN INJ 900 MG in SODIUM CHLOR 0.9% 250 ML INJ 250 ML IV SCH (06:22)
[2017-09-26 06:59] LABS: BICARBONATE 28.7 MEQ/L (21.0-32.0); CALCIUM 7.7 MG/DL (8.5-10.1); CREATININE 0.71 MG/DL (0.50-1.00); MAGNESIUM 1.7 MG/DL (1.5-2.5)
[2017-09-26 08:00] VITALS: BP 117/69; PULSE 104; RESP 16; TEMP 99.1; O2SAT 97
[2017-09-26] MEDS: SODIUM CHLORIDE 0.9% FLUSH 10 ML FLUSH IV FLUSH SCH ×2 (08:06→20:37)
[2017-09-26] MEDS: DOCUSATE SODIUM 50 MG/SENNA 8.6 MG TAB PO SCH ×2 (08:06→20:36)
[2017-09-26] MEDS: HALOPERIDOL 1 MG TAB PO SCH (08:10)
[2017-09-26] MEDS: ASPIRIN EC 81 MG TABEC PO SCH (08:10)
[2017-09-26] MEDS: MULTIVITAMIN TAB PO SCH (08:10)
[2017-09-26] MEDS ORDERED: POTASSIUM CHLORIDE 20 MEQ CONTROLLED RELEASE TAB PO SCH (09:00)
[2017-09-26 12:00] VITALS: BP 119/78; PULSE 110; RESP 17; O2SAT 99
--- NOTE | 2017-09-26 12:34 | HHI.PR ---
Subjective Remarks awake and alert when wakened up complains of pain- knees- mves all extremities spontaenously no complains of diarrhea Objective Vitals Vital Signs Date Time Temp Pulse Resp B/P (MAP) Pulse Ox O2 Delivery O2 Flow Rate FiO2 09/26/17 12:00 110 17 119/78 (92) 99 09/26/17 08:00 99.1 104 16 117/69 (85) 97 09/26/17 04:00 98.5 104 20 149/95 (113) 100 09/26/17 04:00 109 09/26/17 00:00 112 09/26/17 00:00 112 20 124/73 (90) 95 09/25/17 20:00 105 09/25/17 20:00 99.0 104 18 157/91 (113) 100 09/25/17 16:00 98.1 92 17 114/70 (85) 100 I/O 09/25/17 09/25/17 09/25/17 09/26/17 09/26/17 09/26/17 07:00 15:00 23:00 07:00 15:00 23:00 Intake Total 1750 ml 2360 ml 1000 ml Balance 1750 ml 2360 ml 1000 ml Intake Oral 550 ml 960 ml IV Total 1200 ml 1400 ml 1000 ml # Voids 3 5 5 # Bowel Movements 2 2 2 Result Diagram: 09/24/17 0819 09/26/17 0614 Imaging Last Impressions Brain MRI 09/25/17 0000 Signed Impressions: Service Date/Time: Monday, September 25, 2017 09:13 - CONCLUSION: Several subacute strokes in the left occipital region Radames Moyer MD Chest CT 09/24/17 0000 Signed Impressions: Service Date/Time: Sunday, September 24, 2017 13:46 - CONCLUSION: 6 mm right upper lobe lung nodule. Possible splenic infarcts. Radames Moyer MD Abdomen/Pelvis CT 09/24/17 0000 Signed Impressions: Service Date/Time: Sunday, September 24, 2017 13:46 - CONCLUSION: Probable splenic infarcts. Right renal infarct. Tiny gallstone. Mild gallbladder wall thickening in nondistended gallbladder, nonspecific Radames Moyer MD Knee X-Ray 09/23/17 0000 Signed Impressions: Service Date/Time: Saturday, September 23, 2017 19:48 - CONCLUSION: 1. No acute findings. Roge Short MD Head CT 09/21/171932 Signed Impressions: Service Date/Time: Thursday, September 21, 2017 19:53 - CONCLUSION: No acute disease. Ethan Salas MD Chest X-Ray 09/21/171911 Signed Impressions: Service Date/Time: Thursday, September 21, 2017 19:17 - CONCLUSION: No acute disease. Ethan Salas MD Objective Remarks awke, and alert, no acute distress ken- multiple recinos, no nuchal rigidity no rales regular rhythm abdomen soft knee- no erythema- resolved, no swelling , moving /flexing more moves all extremities no calf swelling A/P Problem List: (1) Sepsis ICD Code: A41.9 - Sepsis, unspecified organism Status: Acute (2) Septic arthritis of knee, left ICD Code: M00.9 - Pyogenic arthritis, unspecified Status: Acute (3) Elevated troponin ICD Code: R74.8 - Abnormal levels of other serum enzymes Status: Acute (4) Rhabdomyolysis ICD Code: M62.82 - Rhabdomyolysis Status: Acute (5) Hyponatremia ICD Code: E87.1 - Hypo-osmolality and hyponatremia Status: Acute (6) ANDRZEJ (acute kidney injury) ICD Code: N17.9 - Acute kidney failure, unspecified (7) IVDU (intravenous drug user) ICD Code: F19.90 - Other psychoactive substance use, unspecified, uncomplicated Assessment and Plan S. Bacteremia/ sepsis with endocarditis- with vegetation on Echo on admission: Temp 101.5, HR 135, Lactic Acid 2.8, Source-Septic Knee Joint. S /p Blood Cultures, follow up cultures, check repeat Lactic Acid back to normal. IVF Repeat blood cx negative so far x 48 hours On Ceftriaxone and Vancomycin- ID ff Left Knee Septic Joint: +erythema/swelling , X-ray with small suprapatellar knee joint effusion s/p knee joint aspiration - clinically improving Continue w/ treatment as above. -seen by ortho- no further intervention PT daily Agitation/ withdrawals. O Haldol- decreae to 0.5 mg po bid Elevated Trop: Trop 1.41, no acute EKG changes, no c/o chest pain, likely related to underlying Cocaine Abuse. Cardiology consulted, recommend to trend enzymes. Telemetry. Check serial cardiac enzymes for trend. Check Echo to eval for possible underlying endocarditis/myocarditis. Rhabdomyolysis: resolvedls decrease IVF rate ANDRZEJ: Creatinine 1.32, previously 0.81 on 03/25/16. U/a negative for UTI. + Cocaine. IVF, repeat labs improving Hypokalemia- replace IV- and ff Hyponatremia: imrpoved IVDU: Pt counselled. po pain meds. Severe protein calorie malnutrition low BMI, low albumin. ensure, MVT DVT Prophylaxis: SCD/Teds CM for d/c planning as needed. requesting for ensure- paige and strawberry flavor Problem Qualifiers (1) Sepsis: Qualified Codes: A41.9 - Sepsis, unspecified organism (2) Septic arthritis of knee, left: Qualified Codes: M00.9 - Pyogenic arthritis, unspecified (3) Rhabdomyolysis: Qualified Codes: M62.82 - Rhabdomyolysis Gael Conde MD September 26, 2017 12:34
--- NOTE | 2017-09-26 12:51 | HHI.IDPN ---
Subjective Subjective Remarks ID COVERAGE This is a 41yr old female with a past medical history of IVDU with cocaine and Dilaudid who presented to [facility] ED with complaints of left knee pain, generalized malaise and fever. Patient found to have sepsis with elevated temperature 101.5, tachycardia with HR 135, elevated lactic acid of 2.8 and source of septic knee joint. UDS was positive for cocaine. Xray of the left knee revealed suprapatellar knee joint effusion. She underwent left knee joint aspiration in the ED with purulent fluid removed with synovial fluid with 29, 700 WBC and 97 neutrophils. Gram stain shows moderate WBCs and no organisms. Patient was started on IV Vancomycin and Zosyn. Patient was seen in consultation by orthopedics who had considered surgical intervention but have decided to monitor aspirate due to no growth of organisms before proceeding with arthrotomy. She was also noted to have elevated troponins and was seen in consultation by cardiology who is concerned about possible endocarditis and has ordered a 2D echocardiogram. Blood cultures were obtained and grew GPC in 3/4 bottles and Group A Beta Strep in 1/4 bottles. Patient has been seen by psychiatry for delirium with altered mental status secondary to polysubstance abuse and sepsis and has deemed her lacking capacity to make her own medical decisions. Infectious disease has been consulted for evaluation and management of sepsis and bacteremia. Her most recent vital signs are significant for fever of 100.3 , tachycardia with HR of 110 and RR 36. Lactic acid this am was 1.9 and white count was WNL. ESR elevated at 76 and CRP was 18. Patient seen and examination attempted but patient appears lethargic and uncooperative with exam. She will not answer any questions or follow any commands. With attempts at tactile stimuli, she uses profanity and yells to "leave me the fuck alone". Notes reviewed Temps low grade Awake and ialert, up in chair C/O L knee pain NO new (+) BC Echo with MV veg CT A/P with splenic infarct and kidney infarct MRI brain with several subacute infarct on L side BC 09/21 GAS BC 09/23 negative No echo report seen yet ESR 78 CRP 18 Antibiotics IV Vancomycin IV Ceftriaxone Current Medications Medications (Trade) Dose Ordered Sig/Radha Route Start Time Stop Time Status Last Admin Potassium Chloride/Sodium Chloride 1,000 ml @ 42 mls/hr [id number] IV 09/21/17 21:00 09/26/17 11:44 (NS Flush) 2 ml UNSCH PRN IV FLUSH 09/21/17 22:30 (NS Flush) 2 ml BID IV FLUSH 09/22/17 09:00 09/24/17 08:59 (Zofran Inj) 4 mg Q6H PRN IVP 09/21/17 22:30 (Tylenol) 650 mg Q6H PRN PO 09/21/17 22:30 09/22/17 15:21 (Roxicodone) 10 mg Q4H PRN PO 09/21/17 22:30 09/26/17 11:43 (Roxicodone) 5 mg Q4H PRN PO 09/21/17 22:30 (Silvia-Colace) 1 tab BID PO 09/22/17 09:00 09/25/17 08:46 (Milk Of Magnesia Liq) 30 ml Q12H PRN PO 09/21/17 22:30 (Senokot) 17.2 mg Q12H PRN PO 09/21/17 22:30 (Dulcolax Supp) 10 mg DAILY PRN RECTAL 09/21/17 22:30 (Lactulose Liq) 30 ml DAILY PRN PO 09/21/17 22:30 (Theragran) 1 tab DAILY PO 09/22/17 09:00 09/26/17 08:10 (Ecotrin Ec) 81 mg DAILY PO 09/22/17 09:30 09/26/17 08:10 (Romazicon Inj) 0.2 mg Q1M PRN IV PUSH 09/22/17 15:00 (Haldol Inj) 2 mg Q15M PRN IM 09/22/17 15:00 Pharmacy Profile Note 0 ml @ 0 mls/hr UNSCH OTHER 09/22/17 17:00 Ceftriaxone Sodium 2000 mg/ Sodium Chloride 100 ml @ 200 mls/hr Q24H IV 09/24/17 21:00 09/25/17 21:20 (KCl) 20 meq Q12HR PO 09/26/17 09:00 09/26/17 08:10 Vancomycin HCl 750 mg/Sodium Chloride 257.5 ml @ 250 mls/hr Q8H IV 09/26/17 14:00 ([facility] Ordered Lab Info) SPECIFIC LAB TO BE DRAWN:VANCOMYCIN TROUGH DATE TO... ONCE ONCE .XX 09/28/17 05:45 09/28/17 05:46 (KCl) 20 meq DAILY PO 09/26/17 12:30 (Haldol) 0.5 mg BID PO 09/26/17 21:00 Lines PIV with no e/o infection Past Medical History IVDU Allergies: Coded Allergies: No Known Allergies (Unverified Allergy, Unknown, 09/21/17) Objective . Vital Signs Date Time Temp Pulse Resp B/P (MAP) Pulse Ox O2 Delivery O2 Flow Rate FiO2 09/26/17 12:00 110 17 119/78 (92) 99 09/26/17 08:00 99.1 104 16 117/69 (85) 97 09/26/17 04:00 98.5 104 20 149/95 (113) 100 09/26/17 04:00 109 09/26/17 00:00 112 09/26/17 00:00 112 20 124/73 (90) 95 09/25/17 20:00 105 09/25/17 20:00 99.0 104 18 157/91 (113) 100 09/25/17 16:00 98.1 92 17 114/70 (85) 100 09/26/17 09/26/17 09/27/17 15:00 23:00 07:00 # Voids 5 # Bowel Movements 2 . Laboratory Tests Test 09/25/17 07:35 09/26/17 06:14 Blood Urea Nitrogen 4 MG/DL 6 MG/DL Creatinine 0.64 MG/DL 0.71 MG/DL Random Glucose 103 MG/DL 116 MG/DL Calcium Level 8.0 MG/DL 7.7 MG/DL Sodium Level 137 MEQ/L 139 MEQ/L Potassium Level 2.6 MEQ/L 3.5 MEQ/L Chloride Level 100 MEQ/L 104 MEQ/L Carbon Dioxide Level 26.5 MEQ/L 28.7 MEQ/L Anion Gap 11 MEQ/L 6 MEQ/L Estimat Glomerular Filtration Rate 103 ML/MIN 91 ML/MIN Magnesium Level 1.7 MG/DL Total Creatine Kinase 34 U/L Microbiology Date/Time Source Procedure Growth Status 09/23/17 13:27 Blood Peripheral Aerobic Blood Culture - Preliminary NO GROWTH IN 3 DAYS Resulted 09/23/17 13:27 Blood Peripheral Anaerobic Blood Culture - Preliminary NO GROWTH IN 3 DAYS Resulted 09/23/17 13:15 Blood Peripheral Aerobic Blood Culture - Preliminary NO GROWTH IN 3 DAYS Resulted 09/23/17 13:15 Blood Peripheral Anaerobic Blood Culture - Preliminary NO GROWTH IN 3 DAYS Resulted Imaging Last Impressions Head CT 09/21/171932 Signed Impressions: Service Date/Time: Thursday, September 21, 2017 19:53 - CONCLUSION: No acute disease. Ethan Salas MD Knee X-Ray 09/21/171916 Signed Impressions: Service Date/Time: Thursday, September 21, 2017 19:20 - CONCLUSION: Small suprapatellar knee joint effusion. Ethan Salas MD Chest X-Ray 09/21/171911 Signed Impressions: Service Date/Time: Thursday, September 21, 2017 19:17 - CONCLUSION: No acute disease. Ethan Salas MD Physical Exam GENERAL: This is a thin female, awake and alert, interactive, not in distress SKIN: Warm and dry. + track recinos. HEAD: Atraumatic. Normocephalic. No temporal or scalp tenderness. EYES: PERRLA. No scleral icterus. ENT: Nose without bleeding or purulent drainage. Airway patent. NECK: Trachea midline. CARDIOVASCULAR: Tachycardic without murmurs, gallops, or rubs. RESPIRATORY: Poor effort. Clear to auscultation. Breath sounds equal bilaterally. No wheezes, rales, or rhonchi. GASTROINTESTINAL: Abdomen soft, non-tender, nondistended. MUSCULOSKELETAL: Extremities without clubbing, cyanosis, or edema. Left knee with area of swelling, no erythema noted today. No calf tenderness. NEUROLOGICAL: Awake and alert. Moves all extremities, speech clear, non-focal PSYCHIATRIC: Calm, cooperative with exam. 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 - has MV veg Septic multiple infarcts to spleen. Septic infarct right kidney. Subacute brain infarct L Hepatitis C positive Mental status better today Recommendations Continue Ceftriaxone IV Stop Vanco IV Follow repeat BC Follow temps Monitor progress D/W Kassandra Sierra MD September 26, 2017 12:51
--- NOTE | 2017-09-26 12:59 | HHI.HCPN ---
Reason for visit a. To assist with evaluation and management of symptoms including: Pain, altered mental status b. To assist medical decision maker(s) with: better understanding of current medical conditions; weighing benefits/burdens of medical treatment options; making medical treatment decisions. Subjective/Interval History Follow-up visit medically necessary for symptom management and clarification of goals of care. Remains off restraints. No reports of agitation, aggression and /or confusion. Patient seen ambulating with a rolling walker and then assisted by physical therapist to a recliner. Patient is oriented to self, place and situation. Patient complaining of generalized pain mostly to the left knee. Patient states that she uses larger doses of drugs (pain medications) that she gets from the streets and the smaller dose she is getting here is not helping. Pain is currently managed with Oxycodone 10mg and patient has required x4 prn doses in the past 24hrs. Patient able to follow commands with all 4 extremities. Patient complaining of craving for cigarettes. Explained to patient that she can only get a nicotine patch while hospitalized. Low-grade temp this morning- 99.1F. Patient has never completed advanced directives. Patient mentioned that in the event that she is not able to participate in medical decision making, she would want her mother Theresa Sanchez to serve as her healthcare surrogate and her sister Smiley Allan to serve as a healthcare surrogate. Explained to patient that at this time her mother will make medical decisions for her until Psychiatry revaluates her and deems her capacitated. Addressed code status, discussed CPR limitations, complications and benefits, patient elected full code , she would want to be resuscitated and intubated if need be. Assisted patient with completing healthcare surrogate form in the presence of a bedside RN. Telephone conversation with patient's mother, updated her on patient's current medical condition. Explained to her that patient has competed healthcare surrogate form and a copy has been left in the room for her. Patient`s mother appreciative of updates. Case discussed with bedside RN and Dr. Conde. Discussed need for reevaluation by psychiatry. . Family/friend interactions Telephone conversation with patient's mother . Advance Directives Living Will: Never completed Health Care Surrogate: Copy in medical record Durable Power of Assisted Living Manager: Never completed Advance Directive Specifics Date completed: 09/26/2017 . Health Care Surrogate(s): Healthcare surrogate- Mother- Theresa Webster [phone] Alternate healthcare surrogate-Sister- Jerrell Reis- [phone] . Objective Vital Signs Date Time Temp Pulse Resp B/P (MAP) Pulse Ox O2 Delivery O2 Flow Rate FiO2 09/26/17 12:00 110 17 119/78 (92) 99 09/26/17 08:00 99.1 104 16 117/69 (85) 97 09/26/17 04:00 98.5 104 20 149/95 (113) 100 09/26/17 04:00 109 09/26/17 00:00 112 09/26/17 00:00 112 20 124/73 (90) 95 09/25/17 20:00 105 09/25/17 20:00 99.0 104 18 157/91 (113) 100 09/25/17 16:00 98.1 92 17 114/70 (85) 100 Intake & Output 09/26/17 09/26/17 07:00 19:00 Intake Total 2200 ml Balance 2200 ml IV Total 2200 ml # Voids 5 # Bowel Movements 2 Physical Exam CONSTITUTIONAL/GENERAL: This is a disheveled lady who looks older that stated age, endorsing generalized pain TUBES/LINES/DRAINS: PIV SKIN: Ecchymoses on upper extremities. Multiple IV use tracks to legs and arms. No wounds seen anteriorly. Skin temperature appropriate. HEAD: Atraumatic. Normocephalic. EYES: PERRLA. Extraocular motions intact. No scleral icterus. Fundi not examined. ENT: Hearing grossly normal. No drainage from nose. Moist oral mucosa. NECK: Trachea midline. Supple, nontender. CARDIOVASCULAR: S1, S2 normal without murmurs, gallops, or rubs. No JVD. Peripheral pulses symmetric. RESPIRATORY/CHEST: Symmetric, unlabored respirations. Diminished in the bases. No wheezes, rales, or rhonchi. GASTROINTESTINAL: Abdomen soft, non-tender, nondistended. Positive bowel sounds times MUSCULOSKELETAL: Extremities without clubbing, cyanosis. No calf tenderness. No mottling or clubbing. Trace edema to left knee. NEUROLOGICAL: Alert, oriented to self, place and situation. Moving all 4 extremities to command. Speech clear. PSYCHIATRIC: Calm. No agitation, hallucination. . Diagnostic Tests Laboratory Laboratory Tests Test 09/23/17 15:10 09/24/17 08:19 5/8/18 17:41 09/25/17 07:35 Blood Urea Nitrogen 10 MG/DL (7-18) 8 MG/DL (7-18) 4 MG/DL (7-18) Creatinine 0.70 MG/DL (0.50-1.00) 0.53 MG/DL (0.50-1.00) 0.64 MG/DL (0.50-1.00) Random Glucose 84 MG/DL (74-106) 86 MG/DL (74-106) 103 MG/DL (74-106) Calcium Level 7.7 MG/DL (8.5-10.1) 8.1 MG/DL (8.5-10.1) 8.0 MG/DL (8.5-10.1) Sodium Level 138 MEQ/L (136-145) 138 MEQ/L (136-145) 137 MEQ/L (136-145) Potassium Level 2.8 MEQ/L (3.5-5.1) 2.5 MEQ/L (3.5-5.1) 2.6 MEQ/L (3.5-5.1) Chloride Level 104 MEQ/L (98-107) 102 MEQ/L (98-107) 100 MEQ/L (98-107) Carbon Dioxide Level 29.6 MEQ/L (21.0-32.0) 25.5 MEQ/L (21.0-32.0) 26.5 MEQ/L (21.0-32.0) Anion Gap 4 MEQ/L (5-15) 11 MEQ/L (5-15) 11 MEQ/L (5-15) Estimat Glomerular Filtration Rate 93 ML/MIN (>89) 128 ML/MIN (>89) 103 ML/MIN (>89) C-Reactive Protein 9.88 MG/DL (0.00-0.30) Rapid Plasma Reagin NON-REACTIVE (NON-REACTVE) Hepatitis A IgM Antibody NONREACTIVE (NONREACTIVE) Hepatitis B Surface Antigen NONREACTIVE (NONREACTIVE) Hepatitis B Core IgM Antibody NONREACTIVE (NONREACTIVE) Hepatitis C IgG Antibody REACTIVE (NONREACTIVE) HIV (1&2) Ab and P24 Ag, 4th Gener NONREACTIVE (NONREACTIVE) White Blood Count 6.5 TH/MM3 (4.0-11.0) Red Blood Count 3.85 MIL/MM3 (4.00-5.30) Hemoglobin 9.4 GM/DL (11.6-15.3) Hematocrit 28.1 % (35.0-46.0) Mean Corpuscular Volume 73.0 FL (80.0-100.0) Mean Corpuscular Hemoglobin 24.4 PG (27.0-34.0) Mean Corpuscular Hemoglobin Concent 33.4 % (32.0-36.0) Red Cell Distribution Width 14.4 % (11.6-17.2) Platelet Count 208 TH/MM3 (150-450) Mean Platelet Volume 9.1 FL (7.0-11.0) Neutrophils (%) (Auto) 71.1 % (16.0-70.0) Lymphocytes (%) (Auto) 18.3 % (9.0-44.0) Monocytes (%) (Auto) 9.3 % (0.0-8.0) Eosinophils (%) (Auto) 0.8 % (0.0-4.0) Basophils (%) (Auto) 0.5 % (0.0-2.0) Neutrophils # (Auto) 4.6 TH/MM3 (1.8-7.7) Lymphocytes # (Auto) 1.2 TH/MM3 (1.0-4.8) Monocytes # (Auto) 0.6 TH/MM3 (0-0.9) Eosinophils # (Auto) 0.1 TH/MM3 (0-0.4) Basophils # (Auto) 0.0 TH/MM3 (0-0.2) CBC Comment DIFF FINAL Differential Comment Vancomycin Level Trough 8.0 MCG/ML (5.0-10.0) Test 09/26/17 06:14 Blood Urea Nitrogen 6 MG/DL (7-18) Creatinine 0.71 MG/DL (0.50-1.00) Random Glucose 116 MG/DL (74-106) Calcium Level 7.7 MG/DL (8.5-10.1) Magnesium Level 1.7 MG/DL (1.5-2.5) Sodium Level 139 MEQ/L (136-145) Potassium Level 3.5 MEQ/L (3.5-5.1) Chloride Level 104 MEQ/L (98-107) Carbon Dioxide Level 28.7 MEQ/L (21.0-32.0) Anion Gap 6 MEQ/L (5-15) Estimat Glomerular Filtration Rate 91 ML/MIN (>89) Total Creatine Kinase 34 U/L (26-192) Vancomycin Level Trough 6.7 MCG/ML (5.0-10.0) Result Diagram: 09/24/1781809/26/17613 Microbiology Microbiology Date/Time Source Procedure Growth Status 09/23/17 13:27 Blood Peripheral Aerobic Blood Culture - Preliminary NO GROWTH IN 3 DAYS Resulted 09/23/17 13:27 Blood Peripheral Anaerobic Blood Culture - Preliminary NO GROWTH IN 3 DAYS Resulted 09/23/17 13:15 Blood Peripheral Aerobic Blood Culture - Preliminary NO GROWTH IN 3 DAYS Resulted 09/23/17 13:15 Blood Peripheral Anaerobic Blood Culture - Preliminary NO GROWTH IN 3 DAYS Resulted Assessment and Plan Disease Oriented Problem List: (1) Sepsis (2) Septic arthritis of knee, left (3) ANDRZEJ (acute kidney injury) (4) Elevated troponin (5) Hyponatremia (6) Substance induced mood disorder (7) Polysubstance dependence (8) IVDU (intravenous drug user) Symptom Scale: (1) Pain 0-10 Scale: Unable to quantify Comment: Generalized. Came in complaining of left knee pain. . (2) Altered mental state 0-10 Scale: Unable to quantify Comment: Most likely from delirium tremor. . Pertinent Non-Medical Issues Psychosocial:Patient was born and raised in [place]. Per EMR records dated 03/26/16 patient was . Patient worked in a fast food restaurant in the past. Spiritual: No jewish affiliation Legal: Never completed advance directives- Patient is but spouse is incarcerated and not readily available to serve as a proxy decision maker Ethical issues impacting care:None identified at this time . Important Contacts Mother- Theresa Webster- [phone] Sister- Smiley Allan- [phone] Sister-Lindsay Nina- [phone] Spouse- Nelly Mtz- Currently incarcerated- Had been from patient for a year . Prognosis Ms. Webster is a 41-year-old female with a past medical history of polysubstance abuse including IV intravenous drug use with cocaine/Dilaudid, and tobacco use. Patient presented to the ER on 09/21/17 complaining of left knee pain, fever and generalized malaise . Per ER report patient`s last Dilaudid use was the night prior to ER visit and had used cocaine on the day she came to the ER. She was also demanding pain medication in the ER.Clinical course complicated with delirium, sepsis and bacteremia. Given patient`s lifestyle choice and ongoing comorbidities, she remains at high risk for further complications, deterioration and decline. . Code Status: Full Code Plan PLAN: Legal decision maker: Patient is currently incapacitated to make medical decisions per Psychiatry. Patient awaiting reevaluation by psychiatry, her mental status has improved. Patient has designated her mother Theresa Sanchez as her healthcare surrogate and her sister Smiley Allan as her alternate healthcare surrogate. Goals: Aggressive CODE STATUS: Full code Patient has never completed advanced directives. Patient mentioned that in the event that she is not able to participate in medical decision making, she would want her mother Theresa Sanchez to serve as her healthcare surrogate and her sister Smiley Allan to serve as a healthcare surrogate. Explained to patient that at this time her mother will make medical decisions for her until Psychiatry revaluates her and deems her capacitated. Addressed code status, discussed CPR limitations, complications and benefits, patient elected full code , she would want to be resuscitated and intubated if need be. Assisted patient with completing healthcare surrogate form in the presence of a bedside RN. SYMPTOMS: * Pain: Patient has a history of polysubstance abuse. Patient came in complaining left knee pain and requesting oxycodone in the ER. Currently complaining of generalized pain and requesting oxycodone. Oxycodone 5mg -10mg q 4 hrs prn for pain. Last dose administered on 09/21/17. Patient not showing any signs of pain or discomfort. No further recommendations. * Altered mental status: With a history of polysubstance abuse, and recent use. Patient may be going through withdrawal symptoms. Patient was put on CIWA protocol. Patient has received multiple doses of Lorazepam. Patient currently calm with no restraints. Patient is oriented to self, place and situation. Resolved. Palliative care will continue to follow the patient during hospital course as condition evolves, to assist patient/decision-maker with understanding of their medical conditions, weighing benefits/burdens of treatment options, for clarification of goals of treatment. Additionally will assist with any symptoms of palliative concern Attestation To help prompt me to consider important information that might be impacting today's encounter and assessment, information from prior notes written by myself or my colleagues may have been "brought forward" into today's note. My signature on this note, however, is an attestation that I personally performed the exam, history, and/or decision-making noted today, and, unless otherwise indicated, the interactions with patient, family, and staff as well as the review of records all occurred today. I also attest that the listed assessment and stated plan reflect my best clinical judgment today based on the combination of historical information, prior notes, and today's exam/ interactions. When time spent is documented, it refers only to time spent today by the signer, or if indicated, combined time spent today by collaborating physician/nurse practitioner. Haley Mccarthy September 26, 2017 12:59
[2017-09-26] MEDS: REMOVE OLD PATCH T-DERMAL SCH (13:48)
[2017-09-26] MEDS: VANCOMYCIN INJ 750 MG in SODIUM CHLOR 0.9% 250 ML INJ 250 ML IV SCH ×2 (13:48→23:08)
[2017-09-26] MEDS: NICOTINE 14 MG/24 HR PATCH T-DERMAL SCH (13:48)
[2017-09-26] MEDS: POTASSIUM CHLORIDE 20 MEQ CONTROLLED RELEASE TAB PO SCH (13:56)
[2017-09-26 16:00] VITALS: BP 126/70; PULSE 105; RESP 17; TEMP 98.3; O2SAT 100
[2017-09-26 20:00] VITALS: BP 121/75; PULSE 112; RESP 18; TEMP 99.9; O2SAT 100
[2017-09-26] MEDS: HALOPERIDOL 0.5 MG TAB PO SCH (20:35)
[2017-09-26] MEDS: cefTRIAXone INJ 2,000 MG in SODIUM CHLORIDE 0.9% INJ 100 ML IV SCH (20:37)
[2017-09-27] VITALS: BP 150/62; PULSE 106; RESP 18; TEMP 97.9; O2SAT 100
[2017-09-27 04:00] VITALS: BP 143/85; PULSE 103; RESP 18; TEMP 99.1; O2SAT 99
[2017-09-27] MEDS: VANCOMYCIN INJ 750 MG in SODIUM CHLOR 0.9% 250 ML INJ 250 ML IV SCH ×2 (04:54→12:43)
[2017-09-27 08:00] VITALS: BP 130/73; PULSE 98; RESP 17; TEMP 98.2; O2SAT 93
[2017-09-27] MEDS: POTASSIUM CHLORIDE 20 MEQ CONTROLLED RELEASE TAB PO SCH (08:14)
[2017-09-27] MEDS: MULTIVITAMIN TAB PO SCH (08:14)
[2017-09-27] MEDS: HALOPERIDOL 0.5 MG TAB PO SCH ×2 (08:14→20:12)
[2017-09-27] MEDS: DOCUSATE SODIUM 50 MG/SENNA 8.6 MG TAB PO SCH ×2 (08:14→20:14)
[2017-09-27] MEDS: SODIUM CHLORIDE 0.9% FLUSH 10 ML FLUSH IV FLUSH SCH ×2 (08:14→20:14)
[2017-09-27] MEDS: NICOTINE 14 MG/24 HR PATCH T-DERMAL SCH (08:15)
[2017-09-27] MEDS: ASPIRIN EC 81 MG TABEC PO SCH (08:15)
[2017-09-27] MEDS: REMOVE OLD PATCH T-DERMAL SCH (08:15)
[2017-09-27 12:00] VITALS: BP 112/62; PULSE 92; RESP 16; TEMP 98.4; O2SAT 100
--- NOTE | 2017-09-27 12:50 | HHI.PR ---
Subjective Remarks doing very well asking when she can go home no complains afebrile Objective Vitals Vital Signs Date Time Temp Pulse Resp B/P (MAP) Pulse Ox O2 Delivery O2 Flow Rate FiO2 09/27/17 12:00 98.4 92 16 112/62 (79) 100 09/27/17 08:00 98.2 98 17 130/73 (92) 93 09/27/17 04:00 99.1 103 18 143/85 (104) 99 09/27/17 00:00 97.9 106 18 150/62 (91) 100 09/26/17 20:00 99.9 112 18 121/75 (90) 100 09/26/17 16:00 98.3 105 17 126/70 (88) 100 I/O 09/26/17 09/26/17 09/26/17 09/27/17 09/27/17 09/27/17 07:00 15:00 23:00 07:00 15:00 23:00 Intake Total 1000 ml 257.5 ml 500 ml 1597.5 ml Balance 1000 ml 257.5 ml 500 ml 1597.5 ml Intake Oral 500 ml 240 ml IV Total 1000 ml 257.5 ml 1357.5 ml # Voids 5 3 2 # Bowel Movements 2 1 Result Diagram: 09/24/17 0819 09/26/17 0614 Imaging Last Impressions Brain MRI 09/25/17 0000 Signed Impressions: Service Date/Time: Monday, September 25, 2017 09:13 - CONCLUSION: Several subacute strokes in the left occipital region Radames Moyer MD Chest CT 09/24/17 0000 Signed Impressions: Service Date/Time: Sunday, September 24, 2017 13:46 - CONCLUSION: 6 mm right upper lobe lung nodule. Possible splenic infarcts. Radames Moyer MD Abdomen/Pelvis CT 09/24/17 0000 Signed Impressions: Service Date/Time: Sunday, September 24, 2017 13:46 - CONCLUSION: Probable splenic infarcts. Right renal infarct. Tiny gallstone. Mild gallbladder wall thickening in nondistended gallbladder, nonspecific Radames Moyer MD Knee X-Ray 09/23/17 0000 Signed Impressions: Service Date/Time: Saturday, September 23, 2017 19:48 - CONCLUSION: 1. No acute findings. Roge Short MD Head CT 5/5/18 1933 Signed Impressions: Service Date/Time: Thursday, September 21, 2017 19:53 - CONCLUSION: No acute disease. Ethan Salas MD Chest X-Ray 09/21/171911 Signed Impressions: Service Date/Time: Thursday, September 21, 2017 19:17 - CONCLUSION: No acute disease. Ethan Salas MD Objective Remarks awke, and alert, no acute distress ken- multiple recinos, no nuchal rigidity no rales regular rhythm abdomen soft knee- erythema- resolved, no swelling , good range of motion moves all extremities no calf swelling A/P Problem List: (1) Sepsis ICD Code: A41.9 - Sepsis, unspecified organism Status: Acute (2) Septic arthritis of knee, left ICD Code: M00.9 - Pyogenic arthritis, unspecified Status: Acute (3) Elevated troponin ICD Code: R74.8 - Abnormal levels of other serum enzymes Status: Acute (4) Rhabdomyolysis ICD Code: M62.82 - Rhabdomyolysis Status: Acute (5) Hyponatremia ICD Code: E87.1 - Hypo-osmolality and hyponatremia Status: Acute (6) ANDRZEJ (acute kidney injury) ICD Code: N17.9 - Acute kidney failure, unspecified (7) IVDU (intravenous drug user) ICD Code: F19.90 - Other psychoactive substance use, unspecified, uncomplicated Assessment and Plan S. Bacteremia/ sepsis with endocarditis- with vegetation on Echo on admission: Temp 101.5, HR 135, Lactic Acid 2.8, Source-Septic Knee Joint. S /p Blood Cultures, follow up cultures, check repeat Lactic Acid back to normal. IVF Repeat blood cx negative so far x 48 hours On Ceftriaxone DC IV Vancomycin- d/w ID 09/27 Left Knee Septic Joint: +erythema/swelling , X-ray with small suprapatellar knee joint effusion s/p knee joint aspiration -resolved -seen by ortho- no further intervention PT daily Agitation/ withdrawals. O Haldol- decrease to 0.5 mg po bid Elevated Trop: Trop 1.41, no acute EKG changes, no c/o chest pain, likely related to underlying Cocaine Abuse. Cardiology consulted, recommend to trend enzymes. Telemetry. Check serial cardiac enzymes for trend. Check Echo to eval for possible underlying endocarditis/myocarditis. Rhabdomyolysis: resolved ANDRZEJ: Creatinine 1.32, previously 0.81 on 03/25/16. U/a negative for UTI. + Cocaine. IVF, repeat labs Improved Hypokalemia- replace IV- and ff Hyponatremia: imrpoved IVDU: Pt counselled. po pain meds. Severe protein calorie malnutrition low BMI, low albumin. ensure, MVT DVT Prophylaxis: SCD/Teds CM for d/c planning as needed. requesting for ensure- paige and strawberry flavor Problem Qualifiers (1) Sepsis: Qualified Codes: A41.9 - Sepsis, unspecified organism (2) Septic arthritis of knee, left: Qualified Codes: M00.9 - Pyogenic arthritis, unspecified (3) Rhabdomyolysis: Qualified Codes: M62.82 - Rhabdomyolysis Gael Conde MD September 27, 2017 12:50
--- NOTE | 2017-09-27 13:11 | HHI.IDPN ---
Subjective Subjective Remarks ID COVERAGE This is a 41yr old female with a past medical history of IVDU with cocaine and Dilaudid who presented to [facility] ED with complaints of left knee pain, generalized malaise and fever. Patient found to have sepsis with elevated temperature 101.5, tachycardia with HR 135, elevated lactic acid of 2.8 and source of septic knee joint. UDS was positive for cocaine. Xray of the left knee revealed suprapatellar knee joint effusion. She underwent left knee joint aspiration in the ED with purulent fluid removed with synovial fluid with 29, 700 WBC and 97 neutrophils. Gram stain shows moderate WBCs and no organisms. Patient was started on IV Vancomycin and Zosyn. Patient was seen in consultation by orthopedics who had considered surgical intervention but have decided to monitor aspirate due to no growth of organisms before proceeding with arthrotomy. She was also noted to have elevated troponins and was seen in consultation by cardiology who is concerned about possible endocarditis and has ordered a 2D echocardiogram. Blood cultures were obtained and grew GPC in 3/4 bottles and Group A Beta Strep in 1/4 bottles. Patient has been seen by psychiatry for delirium with altered mental status secondary to polysubstance abuse and sepsis and has deemed her lacking capacity to make her own medical decisions. Infectious disease has been consulted for evaluation and management of sepsis and bacteremia. Her most recent vital signs are significant for fever of 100.3 , tachycardia with HR of 110 and RR 36. Lactic acid this am was 1.9 and white count was WNL. ESR elevated at 76 and CRP was 18. Patient seen and examination attempted but patient appears lethargic and uncooperative with exam. She will not answer any questions or follow any commands. With attempts at tactile stimuli, she uses profanity and yells to "leave me the fuck alone". Notes reviewed Temps low grade Awake and ialert, up in chair Feeling better NO new (+) BC Echo with MV veg CT A/P with splenic infarct and kidney infarct MRI brain with several subacute infarct on L side BC 09/21 GAS BC 09/23 negative ESR 78 CRP 18 Antibiotics IV Ceftriaxone Current Medications Medications (Trade) Dose Ordered Sig/Radha Route Start Time Stop Time Status Last Admin Potassium Chloride/Sodium Chloride 1,000 ml @ 42 mls/hr [id number] IV 09/21/17 21:00 09/26/17 23:09 (NS Flush) 2 ml UNSCH PRN IV FLUSH 09/21/17 22:30 (NS Flush) 2 ml BID IV FLUSH 09/22/17 09:00 09/26/17 20:37 (Zofran Inj) 4 mg Q6H PRN IVP 09/21/17 22:30 (Tylenol) 650 mg Q6H PRN PO 09/21/17 22:30 09/22/17 15:21 (Roxicodone) 10 mg Q4H PRN PO 09/21/17 22:30 09/27/17 12:50 (Roxicodone) 5 mg Q4H PRN PO 09/21/17 22:30 (Silvia-Colace) 1 tab BID PO 09/22/17 09:00 09/27/17 08:14 (Milk Of Magnesia Liq) 30 ml Q12H PRN PO 09/21/17 22:30 (Senokot) 17.2 mg Q12H PRN PO 09/21/17 22:30 (Dulcolax Supp) 10 mg DAILY PRN RECTAL 09/21/17 22:30 (Lactulose Liq) 30 ml DAILY PRN PO 09/21/17 22:30 (Theragran) 1 tab DAILY PO 09/22/17 09:00 09/27/17 08:14 (Ecotrin Ec) 81 mg DAILY PO 09/22/17 09:30 09/27/17 08:15 (Romazicon Inj) 0.2 mg Q1M PRN IV PUSH 09/22/17 15:00 (Haldol Inj) 2 mg Q15M PRN IM 09/22/17 15:00 Ceftriaxone Sodium 2000 mg/ Sodium Chloride 100 ml @ 200 mls/hr Q24H IV 09/24/17 21:00 09/26/17 20:37 (KCl) 20 meq DAILY PO 09/26/17 12:30 09/27/17 08:14 (Haldol) 0.5 mg BID PO 09/26/17 21:00 09/27/17 08:14 (Habitrol 14 Mg Patch.24 Hr) 1 patch DAILY T-DERMAL 09/26/17 14:00 09/27/17 08:15 Miscellaneous Information 1 DAILY T-DERMAL 09/26/17 14:00 09/27/17 08:15 Lines PIV with no e/o infection Past Medical History IVDU Allergies: Coded Allergies: No Known Allergies (Unverified Allergy, Unknown, 09/21/17) Objective . Vital Signs Date Time Temp Pulse Resp B/P (MAP) Pulse Ox O2 Delivery O2 Flow Rate FiO2 09/27/17 12:00 98.4 92 16 112/62 (79) 100 09/27/17 08:00 98.2 98 17 130/73 (92) 93 09/27/17 04:00 99.1 103 18 143/85 (104) 99 09/27/17 00:00 97.9 106 18 150/62 (91) 100 09/26/17 20:00 99.9 112 18 121/75 (90) 100 09/26/17 16:00 98.3 105 17 126/70 (88) 100 . Laboratory Tests Test 09/26/17 06:14 Blood Urea Nitrogen 6 MG/DL Creatinine 0.71 MG/DL Random Glucose 116 MG/DL Calcium Level 7.7 MG/DL Magnesium Level 1.7 MG/DL Sodium Level 139 MEQ/L Potassium Level 3.5 MEQ/L Chloride Level 104 MEQ/L Carbon Dioxide Level 28.7 MEQ/L Anion Gap 6 MEQ/L Estimat Glomerular Filtration Rate 91 ML/MIN Total Creatine Kinase 34 U/L Imaging Last Impressions Head CT 09/21/171932 Signed Impressions: Service Date/Time: Thursday, September 21, 2017 19:53 - CONCLUSION: No acute disease. Ethan Salas MD Knee X-Ray 09/21/171916 Signed Impressions: Service Date/Time: Thursday, September 21, 2017 19:20 - CONCLUSION: Small suprapatellar knee joint effusion. Ethan Salas MD Chest X-Ray 09/21/171911 Signed Impressions: Service Date/Time: Thursday, September 21, 2017 19:17 - CONCLUSION: No acute disease. Ethan Salas MD Physical Exam GENERAL: awake and alert, interactive, not in distress SKIN: Warm and dry. + track recinos. HEAD: Atraumatic. Normocephalic. No temporal or scalp tenderness. EYES: PERRLA. No scleral icterus. ENT: Nose without bleeding or purulent drainage. Airway patent. NECK: Trachea midline. CARDIOVASCULAR: Tachycardic without murmurs, gallops, or rubs. RESPIRATORY: Poor effort. Clear to auscultation. Breath sounds equal bilaterally. No wheezes, rales, or rhonchi. GASTROINTESTINAL: Abdomen soft, non-tender, nondistended. MUSCULOSKELETAL: Extremities without clubbing, cyanosis, or edema. Left knee with improving swelling, no erythema noted. No calf tenderness. NEUROLOGICAL: Awake and alert. Moves all extremities, speech clear, non-focal PSYCHIATRIC: Calm, cooperative with exam. 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 - has MV veg Septic multiple infarcts to spleen. Septic infarct right kidney. Subacute brain infarct L Hepatitis C positive Mental status better today Recommendations Continue Ceftriaxone IV Follow repeat BC Follow temps Monitor progress D/W Dr Amaya Bryan available this weekend if needed Dr Knowles back on Saturday Kassandra Javier MD September 27, 2017 13:11
[2017-09-27 16:00] VITALS: BP 124/71; PULSE 99; RESP 17; TEMP 98.3; O2SAT 100
[2017-09-27 20:00] VITALS: BP 126/74; PULSE 106; RESP 18; TEMP 101.6; O2SAT 99
[2017-09-27] MEDS: ACETAMINOPHEN 325 MG TAB PO PRN (20:12)
[2017-09-27] MEDS: cefTRIAXone INJ 2,000 MG in SODIUM CHLORIDE 0.9% INJ 100 ML IV SCH (20:14)
[2017-09-27] MEDS: TEMAZEPAM 7.5 MG CAP PO PRN (21:15)
[2017-09-28] VITALS (9 sets, daily range): BP systolic 103–148; BP diastolic 58–79; PULSE 92–118; RESP 16–19; TEMP 97.9–102.7; O2SAT 97–100
[2017-09-28] MEDS: ACETAMINOPHEN 325 MG TAB PO PRN ×2 (04:23→16:46)
[2017-09-28] MEDS ORDERED: PHARMACY ORDERED LAB ONE (05:45)
[2017-09-28 06:14] LABS: AUTOMATED NEUTROPHIL # 3.5 TH/MM3 (1.8-7.7); BASOPHIL # 0.1 TH/MM3 (0-0.2); BASOPHIL % 1.5 % (0.0-2.0); EOSINOPHIL # 0.1 TH/MM3 (0-0.4); EOSINOPHIL % 2.5 % (0.0-4.0); HEMATOCRIT 27.2 % (35.0-46.0); HEMOGLOBIN 9.1 GM/DL (11.6-15.3); LYMPH % 22.4 % (9.0-44.0); LYMPHOCYTE # 1.3 TH/MM3 (1.0-4.8); MEAN CELL VOLUME 74.7 FL (80.0-100.0); MEAN CORPUSCULAR HEMOGLOBIN 24.9 PG (27.0-34.0); MEAN CORPUSCULAR HGB CONC 33.4 % (32.0-36.0); MEAN PLATELET VOLUME 7.6 FL (7.0-11.0); MONO % 10.8 % (0.0-8.0); MONOCYTE # 0.6 TH/MM3 (0-0.9); NEUT % 62.8 % (16.0-70.0); PLATELET COUNT 389 TH/MM3 (150-450); RED BLOOD COUNT 3.64 MIL/MM3 (4.00-5.30); RED CELL DISTRIBUTION WIDTH 14.7 % (11.6-17.2); WHITE BLOOD COUNT 5.6 TH/MM3 (4.0-11.0)
[2017-09-28] MEDS: SODIUM CHLORIDE 0.9% FLUSH 10 ML FLUSH IV FLUSH SCH ×2 (08:39→20:31)
[2017-09-28] MEDS: HALOPERIDOL 0.5 MG TAB PO SCH ×2 (08:40→20:31)
[2017-09-28] MEDS: ASPIRIN EC 81 MG TABEC PO SCH (08:40)
[2017-09-28] MEDS: POTASSIUM CHLORIDE 20 MEQ CONTROLLED RELEASE TAB PO SCH (08:40)
[2017-09-28] MEDS: DOCUSATE SODIUM 50 MG/SENNA 8.6 MG TAB PO SCH ×2 (08:41→20:31)
[2017-09-28] MEDS: NICOTINE 14 MG/24 HR PATCH T-DERMAL SCH (08:41)
[2017-09-28] MEDS: MULTIVITAMIN TAB PO SCH (08:41)
[2017-09-28] MEDS: REMOVE OLD PATCH T-DERMAL SCH (08:42)
--- NOTE | 2017-09-28 11:37 | HHI.PR ---
Subjective Remarks spiked T 102 no complains of pain or shortness of breath good po 100% wanting to go home d/w her at length Objective Vitals Vital Signs Date Time Temp Pulse Resp B/P (MAP) Pulse Ox O2 Delivery O2 Flow Rate FiO2 09/28/17 08:00 97.9 92 16 119/72 (88) 99 09/28/17 05:21 100.9 09/28/17 04:00 101.9 115 18 148/ 98 09/28/17 03:50 118 09/28/17 00:00 98.5 94 18 103/58 (73) 98 09/27/17 20:00 101.6 106 18 126/74 (91) 99 09/27/17 16:00 98.3 99 17 124/71 (88) 100 09/27/17 12:00 98.4 92 16 112/62 (79) 100 I/O 09/27/17 09/27/17 09/27/17 09/28/17 09/28/17 09/28/17 07:00 15:00 23:00 07:00 15:00 23:00 Intake Total 1597.5 ml 800 ml 360 ml Balance 1597.5 ml 800 ml 360 ml Intake Oral 240 ml 800 ml 360 ml IV Total 1357.5 ml # Voids 2 2 5 # Bowel Movements 1 1 Result Diagram: 09/28/17 0601 09/26/17 0614 Imaging Last Impressions Brain MRI 09/25/17 0000 Signed Impressions: Service Date/Time: Monday, September 25, 2017 09:13 - CONCLUSION: Several subacute strokes in the left occipital region Radames Moyer MD Chest CT 09/24/17 0000 Signed Impressions: Service Date/Time: Sunday, September 24, 2017 13:46 - CONCLUSION: 6 mm right upper lobe lung nodule. Possible splenic infarcts. Radames Moyer MD Abdomen/Pelvis CT 09/24/17 0000 Signed Impressions: Service Date/Time: Sunday, September 24, 2017 13:46 - CONCLUSION: Probable splenic infarcts. Right renal infarct. Tiny gallstone. Mild gallbladder wall thickening in nondistended gallbladder, nonspecific Radames Moyer MD Knee X-Ray 09/23/17 0000 Signed Impressions: Service Date/Time: Saturday, September 23, 2017 19:48 - CONCLUSION: 1. No acute findings. Roge Short MD Head CT 09/21/171932 Signed Impressions: Service Date/Time: Thursday, September 21, 2017 19:53 - CONCLUSION: No acute disease. Ethan Salas MD Chest X-Ray 09/21/171911 Signed Impressions: Service Date/Time: Thursday, September 21, 2017 19:17 - CONCLUSION: No acute disease. Ethan Salas MD Objective Remarks awake, and alert, no acute distress skin- multiple needle recinos, no nuchal rigidity no rales regular rhythm abdomen soft knee- erythema- resolved, improved swelling , good range of motion , up and ambulating moves all extremities no calf swelling A/P Problem List: (1) Sepsis ICD Code: A41.9 - Sepsis, unspecified organism Status: Acute (2) Septic arthritis of knee, left ICD Code: M00.9 - Pyogenic arthritis, unspecified Status: Acute (3) Elevated troponin ICD Code: R74.8 - Abnormal levels of other serum enzymes Status: Acute (4) Rhabdomyolysis ICD Code: M62.82 - Rhabdomyolysis Status: Acute (5) Hyponatremia ICD Code: E87.1 - Hypo-osmolality and hyponatremia Status: Acute (6) ANDRZEJ (acute kidney injury) ICD Code: N17.9 - Acute kidney failure, unspecified (7) IVDU (intravenous drug user) ICD Code: F19.90 - Other psychoactive substance use, unspecified, uncomplicated Assessment and Plan S. Bacteremia/ sepsis with endocarditis- with vegetation on Echo Intermittent Fever Repeat blood cx negative from 09/23 On Ceftriaxone DC IV Vancomycin- 09/27 blood culture repeated due to T spike - will ff results Left Knee Septic Joint: +erythema/swelling , X-ray with small suprapatellar knee joint effusion s/p knee joint aspiration -resolved -seen by ortho- no further intervention PT daily Agitation/ withdrawals. O Haldol- decrease to 0.5 mg po bid Elevated Trop: Trop 1.41, no acute EKG changes, no c/o chest pain, likely related to underlying Cocaine Abuse. Rhabdomyolysis: resolved ANDRZEJ: Creatinine 1.32, previously 0.81 on 03/25/16. U/a negative for UTI. + Cocaine. IVF, repeat labs Improved Hypokalemia- replace IV- and ff Hyponatremia: imrpoved IVDU: Pt counselled. po pain meds. Severe protein calorie malnutrition low BMI, low albumin. ensure, MVT DVT Prophylaxis: SCD/Teds CM for d/c planning as needed. Problem Qualifiers (1) Sepsis: Qualified Codes: A41.9 - Sepsis, unspecified organism (2) Septic arthritis of knee, left: Qualified Codes: M00.9 - Pyogenic arthritis, unspecified (3) Rhabdomyolysis: Qualified Codes: M62.82 - Rhabdomyolysis Gael Conde MD September 28, 2017 11:37
[2017-09-28] MEDS: NS + KCL 20 MEQ INJ 1,000 ML IV SCH (12:50)
[2017-09-28] MEDS: cefTRIAXone INJ 2,000 MG in SODIUM CHLORIDE 0.9% INJ 100 ML IV SCH (20:31)
[2017-09-28] MEDS: TEMAZEPAM 7.5 MG CAP PO PRN (20:34)
[2017-09-29] VITALS (9 sets, daily range): BP systolic 111–141; BP diastolic 55–76; PULSE 89–126; RESP 16–19; TEMP 98.5–103; O2SAT 94–100
[2017-09-29] MEDS: ACETAMINOPHEN 325 MG TAB PO PRN ×3 (00:12→20:09)
[2017-09-29] MEDS: ASPIRIN EC 81 MG TABEC PO SCH (08:46)
[2017-09-29] MEDS: SODIUM CHLORIDE 0.9% FLUSH 10 ML FLUSH IV FLUSH SCH ×2 (08:46→20:08)
[2017-09-29] MEDS: HALOPERIDOL 0.5 MG TAB PO SCH ×2 (08:46→20:09)
[2017-09-29] MEDS: MULTIVITAMIN TAB PO SCH (08:47)
[2017-09-29] MEDS: POTASSIUM CHLORIDE 20 MEQ CONTROLLED RELEASE TAB PO SCH (08:47)
[2017-09-29] MEDS: DOCUSATE SODIUM 50 MG/SENNA 8.6 MG TAB PO SCH ×2 (08:47→20:08)
[2017-09-29] MEDS: REMOVE OLD PATCH T-DERMAL SCH (08:48)
[2017-09-29] MEDS: NICOTINE 14 MG/24 HR PATCH T-DERMAL SCH (08:48)
--- NOTE | 2017-09-29 09:46 | HHI.PR ---
Subjective Remarks when wakened up- complains of pain left knee- on exam - with incrase swelling and fluctuance- no erythema Objective Vitals Vital Signs Date Time Temp Pulse Resp B/P (MAP) Pulse Ox O2 Delivery O2 Flow Rate FiO2 09/29/17 04:55 99.1 89 16 113/55 (74) 98 09/29/17 01:32 100.6 09/29/17 00:28 102.8 109 16 111/61 (78) 97 09/28/17 20:00 111 09/28/17 20:00 99.0 93 17 115/64 (81) 97 09/28/17 18:00 99.6 09/28/17 16:00 102.7 110 17 129/69 (89) 100 09/28/17 12:00 100.0 101 19 141/79 (99) 98 I/O 09/28/17 09/28/17 09/28/17 09/29/17 09/29/17 09/29/17 07:00 15:00 23:00 07:00 15:00 23:00 Intake Total 360 ml 860 ml 760 ml Output Total 1200 ml Balance 360 ml 860 ml -440 ml Intake Oral 360 ml 760 ml 760 ml IV Total 100 ml Output Urine Total 1200 ml # Voids 5 6 # Bowel Movements 1 2 Result Diagram: 09/28/17 0601 09/26/17 0614 Imaging Last Impressions Brain MRI 09/25/17 0000 Signed Impressions: Service Date/Time: Monday, September 25, 2017 09:13 - CONCLUSION: Several subacute strokes in the left occipital region Radames Moyer MD Chest CT 09/24/17 0000 Signed Impressions: Service Date/Time: Sunday, September 24, 2017 13:46 - CONCLUSION: 6 mm right upper lobe lung nodule. Possible splenic infarcts. Radames Moyer MD Abdomen/Pelvis CT 09/24/17 0000 Signed Impressions: Service Date/Time: Sunday, September 24, 2017 13:46 - CONCLUSION: Probable splenic infarcts. Right renal infarct. Tiny gallstone. Mild gallbladder wall thickening in nondistended gallbladder, nonspecific Radames Moyer MD Knee X-Ray 09/23/17 0000 Signed Impressions: Service Date/Time: Saturday, September 23, 2017 19:48 - CONCLUSION: 1. No acute findings. Roge Short MD Head CT 09/21/171932 Signed Impressions: Service Date/Time: Thursday, September 21, 2017 19:53 - CONCLUSION: No acute disease. Ethan Salas MD Chest X-Ray 09/21/171911 Signed Impressions: Service Date/Time: Thursday, September 21, 2017 19:17 - CONCLUSION: No acute disease. Ethan Salas MD Objective Remarks t max 102 awake, and alert, no acute distress skin- multiple needle recinos, no nuchal rigidity no rales regular rhythm abdomen soft knee- erythema- resolved- but with increase swelling and suprapatellar sfluctuance on exam this am moves all extremities no calf swelling A/P Problem List: (1) Sepsis ICD Code: A41.9 - Sepsis, unspecified organism Status: Acute (2) Septic arthritis of knee, left ICD Code: M00.9 - Pyogenic arthritis, unspecified Status: Acute (3) Elevated troponin ICD Code: R74.8 - Abnormal levels of other serum enzymes Status: Acute (4) Rhabdomyolysis ICD Code: M62.82 - Rhabdomyolysis Status: Acute (5) Hyponatremia ICD Code: E87.1 - Hypo-osmolality and hyponatremia Status: Acute (6) ANDRZEJ (acute kidney injury) ICD Code: N17.9 - Acute kidney failure, unspecified (7) IVDU (intravenous drug user) ICD Code: F19.90 - Other psychoactive substance use, unspecified, uncomplicated Assessment and Plan S. Bacteremia/ sepsis with endocarditis- with vegetation on Echo Intermittent Fever - Recurrent fever Repeat blood cx negative from 09/23 On Ceftriaxone DC IV Vancomycin- 09/27 blood culture repeated due to T spike - will ff results- from 09/28 Left Knee Septic Joint: s/p knee joint aspiration - Increase swelling and effusion this am -seen by ortho- no further intervention PT daily reconsult Orhtopedics for arthrocentesis and send fluid studies and cultures-if arthrocentesis done Agitation/ withdrawals. O Haldol- decrease to 0.5 mg po bid Elevated Trop: Trop 1.41, no acute EKG changes, no c/o chest pain, likely related to underlying Cocaine Abuse. Rhabdomyolysis: resolved ANDRZEJ: Creatinine 1.32, previously 0.81 on 03/25/16. U/a negative for UTI. + Cocaine. IVF, repeat labs Improved Hypokalemia- replaced Hyponatremia: imrpoved IVDU: Pt counselled. po pain meds. Severe protein calorie malnutrition low BMI, low albumin. ensure, MVT DVT Prophylaxis: SCD/Teds CM for d/c planning as needed. Problem Qualifiers (1) Sepsis: Qualified Codes: A41.9 - Sepsis, unspecified organism (2) Septic arthritis of knee, left: Qualified Codes: M00.9 - Pyogenic arthritis, unspecified (3) Rhabdomyolysis: Qualified Codes: M62.82 - Rhabdomyolysis Gael Conde MD September 29, 2017 09:46
[2017-09-29] MEDS: NS + KCL 20 MEQ INJ 1,000 ML IV SCH (10:54)
[2017-09-29 11:37] LABS: BASOPHIL # 0.1 TH/MM3 (0-0.2); BASOPHIL % 1.3 % (0.0-2.0); EOSINOPHIL # 0.1 TH/MM3 (0-0.4); HEMATOCRIT 30.1 % (35.0-46.0); HEMOGLOBIN 9.7 GM/DL (11.6-15.3); LYMPH % 19.1 % (9.0-44.0); LYMPHOCYTE # 1.1 TH/MM3 (1.0-4.8); MEAN CELL VOLUME 75.2 FL (80.0-100.0); MEAN CORPUSCULAR HEMOGLOBIN 24.3 PG (27.0-34.0); MEAN CORPUSCULAR HGB CONC 32.3 % (32.0-36.0); MEAN PLATELET VOLUME 8.2 FL (7.0-11.0); MONO % 10.5 % (0.0-8.0); MONOCYTE # 0.6 TH/MM3 (0-0.9); NEUT % 68.1 % (16.0-70.0); PLATELET COUNT 399 TH/MM3 (150-450); RED CELL DISTRIBUTION WIDTH 14.8 % (11.6-17.2); WHITE BLOOD COUNT 5.9 TH/MM3 (4.0-11.0)
[2017-09-29 12:10] LABS: ALKALINE PHOSPHATASE 57 U/L (45-117); ALT (GPT) 43 U/L (10-53); AST (GOT) 40 U/L (15-37); BICARBONATE 29.2 MEQ/L (21.0-32.0); BLOOD UREA NITROGEN 7 MG/DL (7-18); CHLORIDE 98 MEQ/L (98-107); CREATININE 0.77 MG/DL (0.50-1.00); GLOMERULAR FILTRATION RATE 83 ML/MIN (>89); GLUCOSE,RANDOM 102 MG/DL (74-106); SODIUM (NA) 133 MEQ/L (136-145); TOTAL BILIRUBIN ADULT 0.2 MG/DL (0.2-1.0); TOTAL PROTEIN 7.8 GM/DL (6.4-8.2)
[2017-09-29] MEDS: cefTRIAXone INJ 2,000 MG in SODIUM CHLORIDE 0.9% INJ 100 ML IV SCH (20:09)
[2017-09-29] MEDS: TEMAZEPAM 7.5 MG CAP PO PRN (21:03)
[2017-09-30] VITALS (7 sets, daily range): BP systolic 96–133; BP diastolic 52–61; PULSE 94–110; RESP 16–20; TEMP 97.3–100; O2SAT 96–100
[2017-09-30] MEDS: POTASSIUM CHLORIDE 20 MEQ CONTROLLED RELEASE TAB PO SCH (08:33)
[2017-09-30] MEDS: ASPIRIN EC 81 MG TABEC PO SCH (08:33)
[2017-09-30] MEDS: MULTIVITAMIN TAB PO SCH (08:33)
[2017-09-30] MEDS: HALOPERIDOL 0.5 MG TAB PO SCH ×2 (08:33→21:55)
[2017-09-30] MEDS: SODIUM CHLORIDE 0.9% FLUSH 10 ML FLUSH IV FLUSH SCH ×2 (08:34→22:00)
[2017-09-30] MEDS: NICOTINE 14 MG/24 HR PATCH T-DERMAL SCH (08:34)
[2017-09-30] MEDS: DOCUSATE SODIUM 50 MG/SENNA 8.6 MG TAB PO SCH ×2 (08:34→21:00)
[2017-09-30] MEDS: REMOVE OLD PATCH T-DERMAL SCH (08:35)
--- NOTE | 2017-09-30 08:48 | PD.ORT.PN ---
Subjective Subjective Remarks Patient is standing in the room as we entered. Objective Vitals Vital Signs Date Time Temp Pulse Resp B/P (MAP) Pulse Ox O2 Delivery O2 Flow Rate FiO2 09/30/17 08:00 97.3 99 16 133/61 (85) 100 09/30/17 04:00 99.8 107 16 118/61 (80) 96 09/30/17 02:08 98.5 09/30/17 00:26 99.1 110 16 111/58 (75) 98 09/29/17 22:21 100.5 09/29/17 21:30 101.6 09/29/17 20:00 103.0 115 16 124/66 (85) 98 09/29/17 20:00 126 09/29/17 16:00 98.5 100 17 128/73 (91) 100 09/29/17 12:00 99.3 100 19 141/76 (97) 100 I/O 09/29/17 09/29/17 09/29/17 09/30/17 09/30/17 09/30/17 07:00 15:00 23:00 07:00 15:00 23:00 Intake Total 760 ml 1200 ml 1180 ml Output Total 1200 ml 1000 ml Balance -440 ml 1200 ml 180 ml Intake Oral 760 ml 1100 ml 780 ml IV Total 100 ml 400 ml Output Urine Total 1200 ml 1000 ml # Voids 6 # Bowel Movements 3 Result Diagram: 09/29/17 1052 09/29/17 1057 Imaging Last [address] 09/21/171932 Signed Impressions: Service Date/Time: Thursday, September 21, 2017 19:53 - CONCLUSION: No acute disease. Ethan Salas MD Knee X-Ray 09/21/171916 Signed Impressions: Service Date/Time: Thursday, September 21, 2017 19:20 - CONCLUSION: Small suprapatellar knee joint effusion. Ethan Salas MD Chest X-Ray 09/21/171911 Signed Impressions: Service Date/Time: Thursday, September 21, 2017 19:17 - CONCLUSION: No acute disease. Ethan Salas MD Objective Remarks Left lower extremity: Mild swelling over the knee. Knee range of motion is from 0-100. She has minimal tenderness with range of motion of the knee. She states she does have some pressure. She has intact sensation distally with good capillary refills. There is no erythema or drainage. Skin is intact Assessment & Plan Assessment and Plan 1) Left Knee pain and swelling -knee aspirate is neg for organisms and are finalized -no surgery warranted for knee -WBAT -no restrictions Tip Carranza Jr. September 30, 2017 08:48
--- NOTE | 2017-09-30 10:43 | HHI.PR ---
Subjective Remarks still having intermittent fever but clinically feels well up and ambulating Objective Vitals Vital Signs Date Time Temp Pulse Resp B/P (MAP) Pulse Ox O2 Delivery O2 Flow Rate FiO2 09/30/17 08:00 97.3 99 16 133/61 (85) 100 09/30/17 04:00 99.8 107 16 118/61 (80) 96 09/30/17 02:08 98.5 09/30/17 00:26 99.1 110 16 111/58 (75) 98 09/29/17 22:21 100.5 09/29/17 21:30 101.6 09/29/17 20:00 103.0 115 16 124/66 (85) 98 09/29/17 20:00 126 09/29/17 16:00 98.5 100 17 128/73 (91) 100 09/29/17 12:00 99.3 100 19 141/76 (97) 100 I/O 09/29/17 09/29/17 09/29/17 09/30/17 09/30/17 09/30/17 07:00 15:00 23:00 07:00 15:00 23:00 Intake Total 760 ml 1200 ml 1180 ml Output Total 1200 ml 1000 ml Balance -440 ml 1200 ml 180 ml Intake Oral 760 ml 1100 ml 780 ml IV Total 100 ml 400 ml Output Urine Total 1200 ml 1000 ml # Voids 6 # Bowel Movements 3 Result Diagram: 09/29/17 1052 09/29/17 1057 Imaging Last Impressions Brain MRI 09/25/17 0000 Signed Impressions: Service Date/Time: Monday, September 25, 2017 09:13 - CONCLUSION: Several subacute strokes in the left occipital region Radames Moyer MD Chest CT 09/24/17 0000 Signed Impressions: Service Date/Time: Sunday, September 24, 2017 13:46 - CONCLUSION: 6 mm right upper lobe lung nodule. Possible splenic infarcts. Radames Moyer MD Abdomen/Pelvis CT 09/24/17 0000 Signed Impressions: Service Date/Time: Sunday, September 24, 2017 13:46 - CONCLUSION: Probable splenic infarcts. Right renal infarct. Tiny gallstone. Mild gallbladder wall thickening in nondistended gallbladder, nonspecific Radames Moyer MD Knee X-Ray 09/23/17 0000 Signed Impressions: Service Date/Time: Saturday, September 23, 2017 19:48 - CONCLUSION: 1. No acute findings. Roge Short MD Head CT 09/21/171932 Signed Impressions: Service Date/Time: Thursday, September 21, 2017 19:53 - CONCLUSION: No acute disease. Ethan Salas MD Chest X-Ray 09/21/171911 Signed Impressions: Service Date/Time: Thursday, September 21, 2017 19:17 - CONCLUSION: No acute disease. Ethan Salas MD Objective Remarks t max 101 awake, and alert, no acute distress skin- multiple needle recinos, no nuchal rigidity no rales regular rhythm abdomen soft knee- erythema- resolved- swelling decreased-- still withn mild fluctuance, nontender, not hot moves all extremities no calf swelling A/P Problem List: (1) Sepsis ICD Code: A41.9 - Sepsis, unspecified organism Status: Acute (2) Septic arthritis of knee, left ICD Code: M00.9 - Pyogenic arthritis, unspecified Status: Acute (3) Elevated troponin ICD Code: R74.8 - Abnormal levels of other serum enzymes Status: Acute (4) Rhabdomyolysis ICD Code: M62.82 - Rhabdomyolysis Status: Acute (5) Hyponatremia ICD Code: E87.1 - Hypo-osmolality and hyponatremia Status: Acute (6) ANDRZEJ (acute kidney injury) ICD Code: N17.9 - Acute kidney failure, unspecified (7) IVDU (intravenous drug user) ICD Code: F19.90 - Other psychoactive substance use, unspecified, uncomplicated Assessment and Plan S. Bacteremia/ sepsis with endocarditis- with vegetation on Echo Intermittent Fever - Repeat blood cx negative from 09/23 On Ceftriaxone IV Vancomycin- DC on 09/27 blood culture repeated- no growth so far Left Knee Septic Joint: s/p knee joint aspiration - - no erythema, still with mild swelling ,, not hot up and ambulating, -seen by ortho- no further intervention PT daily Agitation/ withdrawals. resolved. Haldol- decrease to 0.5 mg po bid Elevated Trop: Trop 1.41, no acute EKG changes, no c/o chest pain, likely related to underlying Cocaine Abuse. Rhabdomyolysis: resolved ANDRZEJ: Creatinine 1.32, previously 0.81 on 03/25/16. U/a negative for UTI. + Cocaine. IVF, repeat labs Improved Hypokalemia- replaced Hyponatremia: imrpoved IVDU: Pt counselled. po pain meds. Severe protein calorie malnutrition low BMI, low albumin. ensure, MVT DVT Prophylaxis: SCD/Teds CM for d/c planning as needed. Problem Qualifiers (1) Sepsis: Qualified Codes: A41.9 - Sepsis, unspecified organism (2) Septic arthritis of knee, left: Qualified Codes: M00.9 - Pyogenic arthritis, unspecified (3) Rhabdomyolysis: Qualified Codes: M62.82 - Rhabdomyolysis Gael Conde MD September 30, 2017 10:43
[2017-09-30] MEDS: NS + KCL 20 MEQ INJ 1,000 ML IV SCH ×2 (12:15→21:59)
--- NOTE | 2017-09-30 14:55 | HHI.IDPN ---
Subjective Subjective Remarks This is a 41yr old female with a past medical history of IVDU with cocaine and Dilaudid who presented to [facility] ED with complaints of left knee pain, generalized malaise and fever. Patient found to have sepsis with elevated temperature 101.5, tachycardia with HR 135, elevated lactic acid of 2.8 and source of septic knee joint. UDS was positive for cocaine. Xray of the left knee revealed suprapatellar knee joint effusion. She underwent left knee joint aspiration in the ED with purulent fluid removed with synovial fluid with 29, 700 WBC and 97 neutrophils. Gram stain shows moderate WBCs and no organisms. Patient was started on IV Vancomycin and Zosyn. Patient was seen in consultation by orthopedics who had considered surgical intervention but have decided to monitor aspirate due to no growth of organisms before proceeding with arthrotomy. She was also noted to have elevated troponins and was seen in consultation by cardiology who is concerned about possible endocarditis and has ordered a 2D echocardiogram. Blood cultures were obtained and grew GPC in 3/4 bottles and Group A Beta Strep in 1/4 bottles. Patient has been seen by psychiatry for delirium with altered mental status secondary to polysubstance abuse and sepsis and has deemed her lacking capacity to make her own medical decisions. Infectious disease has been consulted for evaluation and management of sepsis and bacteremia. Her most recent vital signs are significant for fever of 100.3 , tachycardia with HR of 110 and RR 36. Lactic acid this am was 1.9 and white count was WNL. ESR elevated at 76 and CRP was 18. Patient seen and examination attempted but patient appears lethargic and uncooperative with exam. She will not answer any questions or follow any commands. With attempts at tactile stimuli, she uses profanity and yells to "leave me the fuck alone". Notes reviewed More alert, up in chair Wishes to go home. Asking for PICC line and DC home. Echo with MV veg CT A/P with splenic infarct and kidney infarct MRI brain with several subacute infarct on L side BC 09/21 GAS BC 09/23 negative ESR 78 CRP 18 Antibiotics IV Ceftriaxone Lines PIV with no e/o infection Past Medical History IVDU Allergies: Coded Allergies: No Known Allergies (Unverified Allergy, Unknown, 09/21/17) Objective . Vital Signs Date Time Temp Pulse Resp B/P (MAP) Pulse Ox O2 Delivery O2 Flow Rate FiO2 09/30/17 12:00 97.8 100 16 96/53 (67) 99 09/30/17 08:00 97.3 99 16 133/61 (85) 100 09/30/17 04:00 99.8 107 16 118/61 (80) 96 09/30/17 02:08 98.5 09/30/17 00:26 99.1 110 16 111/58 (75) 98 09/29/17 22:21 100.5 09/29/17 21:30 101.6 09/29/17 20:00 103.0 115 16 124/66 (85) 98 09/29/17 20:00 126 09/29/17 16:00 98.5 100 17 128/73 (91) 100 09/30/17 09/30/17 10/01/17 15:00 23:00 07:00 Intake Total 150 ml Balance 150 ml IV Total 150 ml . Laboratory Tests Test 09/29/17 10:52 White Blood Count 5.9 TH/MM3 Red Blood Count 4.00 MIL/MM3 Hemoglobin 9.7 GM/DL Hematocrit 30.1 % Mean Corpuscular Volume 75.2 FL Mean Corpuscular Hemoglobin 24.3 PG Mean Corpuscular Hemoglobin Concent 32.3 % Red Cell Distribution Width 14.8 % Platelet Count 399 TH/MM3 Mean Platelet Volume 8.2 FL Neutrophils (%) (Auto) 68.1 % Lymphocytes (%) (Auto) 19.1 % Monocytes (%) (Auto) 10.5 % Eosinophils (%) (Auto) 1.0 % Basophils (%) (Auto) 1.3 % Neutrophils # (Auto) 4.0 TH/MM3 Lymphocytes # (Auto) 1.1 TH/MM3 Monocytes # (Auto) 0.6 TH/MM3 Eosinophils # (Auto) 0.1 TH/MM3 Basophils # (Auto) 0.1 TH/MM3 CBC Comment DIFF FINAL Differential Comment Laboratory Tests Test 09/29/17 10:57 Blood Urea Nitrogen 7 MG/DL Creatinine 0.77 MG/DL Random Glucose 102 MG/DL Total Protein 7.8 GM/DL Albumin 2.0 GM/DL Calcium Level 8.0 MG/DL Alkaline Phosphatase 57 U/L Aspartate Amino Transf (AST/SGOT) 40 U/L Alanine Aminotransferase (ALT/SGPT) 43 U/L Total Bilirubin 0.2 MG/DL Sodium Level 133 MEQ/L Potassium Level 4.4 MEQ/L Chloride Level 98 MEQ/L Carbon Dioxide Level 29.2 MEQ/L Anion Gap 6 MEQ/L Estimat Glomerular Filtration Rate 83 ML/MIN Microbiology Date/Time Source Procedure Growth Status 09/28/17 06:01 Blood Peripheral Aerobic Blood Culture - Preliminary NO GROWTH IN 2 DAYS Resulted 09/28/17 06:01 Blood Peripheral Anaerobic Blood Culture - Preliminary NO GROWTH IN 2 DAYS Resulted 09/28/17 05:50 Blood Peripheral Aerobic Blood Culture - Preliminary NO GROWTH IN 2 DAYS Resulted 09/28/17 05:50 Blood Peripheral Anaerobic Blood Culture - Preliminary NO GROWTH IN 2 DAYS Resulted Imaging Last Impressions Head CT 09/21/171932 Signed Impressions: Service Date/Time: Thursday, September 21, 2017 19:53 - CONCLUSION: No acute disease. Ethan Salas MD Knee X-Ray 09/21/171916 Signed Impressions: Service Date/Time: Thursday, September 21, 2017 19:20 - CONCLUSION: Small suprapatellar knee joint effusion. Ethan Salas MD Chest X-Ray 09/21/171911 Signed Impressions: Service Date/Time: Thursday, September 21, 2017 19:17 - CONCLUSION: No acute disease. Ethan Salas MD Physical Exam GENERAL: awake and alert, interactive, not in distress SKIN: Warm and dry. + track recinos. HEAD: Atraumatic. Normocephalic. No temporal or scalp tenderness. EYES: PERRLA. No scleral icterus. ENT: Nose without bleeding or purulent drainage. Airway patent. NECK: Trachea midline. CARDIOVASCULAR: Tachycardic without murmurs, gallops, or rubs. RESPIRATORY: Poor effort. Clear to auscultation. Breath sounds equal bilaterally. No wheezes, rales, or rhonchi. GASTROINTESTINAL: Abdomen soft, non-tender, nondistended. MUSCULOSKELETAL: Extremities without clubbing, cyanosis, or edema. Left knee with improving swelling, no erythema noted. No calf tenderness. NEUROLOGICAL: Awake and alert. Moves all extremities, speech clear, non-focal PSYCHIATRIC: Calm, cooperative with exam. 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 - has MV veg Septic multiple infarcts to spleen. Septic infarct right kidney. Subacute brain infarct L Hepatitis C positive Mental status better today Recommendations Continue Ceftriaxone IV Follow repeat BC Follow temps Monitor progress D/W RN and patient. Will need mother or one of her sisters to monitor therapy. One of her room mates is an IVDA. Explained to her the risks of abusing PICC line including , worsening infection, and other comorbidities including brain abscess, discitis with paralysis etc. She understands and wishes to cooperate with us to finish therapy. Does not appear reliable will need adult supervision of therapy. Will dw Case management after meeting with mother or sisters. Agnes Knowles MD September 30, 2017 14:55
[2017-09-30] MEDS: cefTRIAXone INJ 2,000 MG in SODIUM CHLORIDE 0.9% INJ 100 ML IV SCH (21:55)
[2017-09-30] MEDS: TEMAZEPAM 7.5 MG CAP PO PRN (21:55)
[2017-10-01] VITALS: BP 111/60; PULSE 104; RESP 18; TEMP 98.4; O2SAT 99
[2017-10-01 04:00] VITALS: BP 103/56; PULSE 96; RESP 16; TEMP 99.1; O2SAT 99
[2017-10-01 08:00] VITALS: BP 112/67; PULSE 92; RESP 19; TEMP 98.1; O2SAT 100
[2017-10-01] MEDS: ASPIRIN EC 81 MG TABEC PO SCH (08:31)
[2017-10-01] MEDS: HALOPERIDOL 0.5 MG TAB PO SCH ×2 (08:31→19:55)
[2017-10-01] MEDS: REMOVE OLD PATCH T-DERMAL SCH (08:31)
[2017-10-01] MEDS: DOCUSATE SODIUM 50 MG/SENNA 8.6 MG TAB PO SCH ×2 (08:31→19:59)
[2017-10-01] MEDS: POTASSIUM CHLORIDE 20 MEQ CONTROLLED RELEASE TAB PO SCH (08:31)
[2017-10-01] MEDS: MULTIVITAMIN TAB PO SCH (08:31)
[2017-10-01] MEDS: NICOTINE 14 MG/24 HR PATCH T-DERMAL SCH (08:32)
[2017-10-01] MEDS: SODIUM CHLORIDE 0.9% FLUSH 10 ML FLUSH IV FLUSH SCH ×2 (09:00→20:00)
[2017-10-01] MEDS ORDERED: WALKER WHEELS/F1 MIS (10:15)
--- NOTE | 2017-10-01 11:09 | HHI.IDPN ---
Subjective Subjective Remarks Patient seen and examined on behalf of Dr. Knowles This is a 41yr old female with a past medical history of IVDU with cocaine and Dilaudid who presented to [facility] ED with complaints of left knee pain, generalized malaise and fever. Patient found to have sepsis with elevated temperature 101.5, tachycardia with HR 135, elevated lactic acid of 2.8 and source of septic knee joint. UDS was positive for cocaine. Xray of the left knee revealed suprapatellar knee joint effusion. She underwent left knee joint aspiration in the ED with purulent fluid removed with synovial fluid with 29, 700 WBC and 97 neutrophils. Gram stain shows moderate WBCs and no organisms. Patient was started on IV Vancomycin and Zosyn. Patient was seen in consultation by orthopedics who had considered surgical intervention but have decided to monitor aspirate due to no growth of organisms before proceeding with arthrotomy. She was also noted to have elevated troponins and was seen in consultation by cardiology who is concerned about possible endocarditis and has ordered a 2D echocardiogram. Blood cultures were obtained and grew GPC in 3/4 bottles and Group A Beta Strep in 1/4 bottles. Patient has been seen by psychiatry for delirium with altered mental status secondary to polysubstance abuse and sepsis and has deemed her lacking capacity to make her own medical decisions. Infectious disease has been consulted for evaluation and management of sepsis and bacteremia. Her most recent vital signs are significant for fever of 100.3 , tachycardia with HR of 110 and RR 36. Lactic acid this am was 1.9 and white count was WNL. ESR elevated at 76 and CRP was 18. Patient seen and examination attempted but patient appears lethargic and uncooperative with exam. She will not answer any questions or follow any commands. With attempts at tactile stimuli, she uses profanity and yells to "leave me the fuck alone". Notes reviewed Patient states she feels much better She is hoping to be discharged home She is requesting an increase in her pain medication c/o vaginal yeast infection/itching c/o persistent left knee pain and swelling wondering if she should apply for disability No fevers No rash No N/V No dysuria No diarrhea Echo with MV veg CT A/P with splenic infarct and kidney infarct MRI brain with several subacute infarct on L side BC 5/5 GAS BC 09/23 negative BC 09/28 no growth x 2 days + Hep C ESR 78 CRP 18 Tmax 100 last night WBC 5.9 09/29 Antibiotics IV Ceftriaxone Lines PIV with no e/o infection Past Medical History IVDU (Viji Camilo) Allergies: Coded Allergies: No Known Allergies (Unverified Allergy, Unknown, 09/21/17) Objective . Vital Signs Date Time Temp Pulse Resp B/P (MAP) Pulse Ox O2 Delivery O2 Flow Rate FiO2 10/01/17 08:00 98.1 92 19 112/67 (82) 100 10/01/17 04:00 99.1 96 16 103/56 (72) 99 10/01/17 00:00 98.4 104 18 111/60 (77) 99 09/30/17 20:00 100.0 96 20 102/57 (72) 98 09/30/17 16:00 98.3 94 16 97/52 (67) 100 09/30/17 12:00 97.8 100 16 96/53 (67) 99 10/01/17 10/01/17 10/02/17 15:00 23:00 07:00 Intake Total 84 ml Balance 84 ml IV Total 84 ml Imaging Last Impressions Brain MRI 09/25/17 0000 Signed Impressions: Service Date/Time: Monday, September 25, 2017 09:13 - CONCLUSION: Several subacute strokes in the left occipital region Radames Moyer MD Chest CT 09/24/17 0000 Signed Impressions: Service Date/Time: Sunday, September 24, 2017 13:46 - CONCLUSION: 6 mm right upper lobe lung nodule. Possible splenic infarcts. Radames Moyer MD Abdomen/Pelvis CT 09/24/17 0000 Signed Impressions: Service Date/Time: Sunday, September 24, 2017 13:46 - CONCLUSION: Probable splenic infarcts. Right renal infarct. Tiny gallstone. Mild gallbladder wall thickening in nondistended gallbladder, nonspecific Radames Moyer MD Knee X-Ray 09/23/17 0000 Signed Impressions: Service Date/Time: Saturday, September 23, 2017 19:48 - CONCLUSION: 1. No acute findings. Roge Short MD Head CT 09/21/171932 Signed Impressions: Service Date/Time: Thursday, September 21, 2017 19:53 - CONCLUSION: No acute disease. Ethan Salas MD Chest X-Ray 09/21/171911 Signed Impressions: Service Date/Time: Thursday, September 21, 2017 19:17 - CONCLUSION: No acute disease. Ethan Salas MD Physical Exam GENERAL: This cachetic ill appearing female, INAD. Awake and alert. Witnessed ambulating around room. SKIN: Warm and dry. + track recinos. HEAD: Atraumatic. Normocephalic. No temporal or scalp tenderness. EYES: PERRLA. No scleral icterus. ENT: Nose without bleeding or purulent drainage. Airway patent. MMM. NECK: Trachea midline. CARDIOVASCULAR: Tachycardic without murmurs, gallops, or rubs. RESPIRATORY: Nonlabored. Clear to auscultation. Breath sounds equal bilaterally. No wheezes, rales, or rhonchi. GASTROINTESTINAL: Abdomen soft, non-tender, nondistended. MUSCULOSKELETAL: Extremities without clubbing, cyanosis, or edema. Left knee with swelling especially in popliteal fossa, tenderness to palpation over medial joint line, no erythema noted. No calf tenderness. NEUROLOGICAL: Awake and alert. Moves all extremities spontaneously. Nonfocal. Normal speech. PSYCHIATRIC: Calm, cooperative with exam. 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 - has MV veg Septic multiple infarcts to spleen. Septic infarct right kidney. Subacute brain infarct L Hepatitis C positive Mental status much improved Vaginal yeast infection Recommendations Miconazole for vaginal yeast infx Continue Ceftriaxone IV. Plan for patient to be discharged under the care of her mother and will live with her mother. DW CM - plan for IV abx treatment at infusion center. Follow repeat BC until finalized Follow temps Monitor progress Meeting with Dr. Knowles and mother at noon today Explained to her the risks of abusing PICC line including , worsening infection, and other comorbidities including brain abscess, discitis with paralysis etc. She understands and wishes to cooperate with us to finish therapy. Does not appear reliable will need adult supervision of therapy. Will dw Case management after meeting with mother or sisters. (Viji Camilo) Remarks The exam, history, and the medical decision-making described in the above note were completed with the assistance of the mid-level provider. I reviewed and agree with the findings presented. I attest that I had a [id number] encounter with the patient on the same day, and personally performed and documented my assessment and findings in the medical record. Feels better wishes to go home. Mom and sister in room: Sister will take her to her home and drive her to infusion center every day. Counseled about PICC line in front of family. Patient promises not to abuse PICC line and only will have it used at Infusion center. She understands that she had a life threatening infection. remberto Calvo CM: infusion orders in chart. Will sign off please call back if any change in clinical condition or questions. (Agnes Knowles MD) Viji Camilo October 01, 2017 11:09 Agnes Knowles MD October 01, 2017 14:11
[2017-10-01 12:00] VITALS: BP 112/67; PULSE 92; RESP 19; TEMP 98.1; O2SAT 100
[2017-10-01] MEDS ORDERED: EPIN1INJ21 IV PUSH (13:56)
[2017-10-01] MEDS ORDERED: EPIN1INJ21 SQ (13:56)
[2017-10-01] MEDS ORDERED: SOLU250I IV PUSH (13:56)
[2017-10-01] MEDS ORDERED: CEFT2INJ IV (13:56)
--- NOTE | 2017-10-01 14:02 | HHI.FF ---
Infusion Therapy Location of Infusion Therapy: Ambulatory Infusion Therapy Order Patient Information Appointment Date: October 01, 2017 Patient Weight 47.6 kg Diagnosis: Diagnosis Strep Grp A Endocarditis Coded Allergies: No Known Allergies (Unverified Allergy, Unknown, 09/21/17) Administer Medication Ceftriaxone 2 grams IV q 24 hours Start Treatment: October 01, 2017 Stop Treatment: Nov 04, 2017 Additional Information Venous access: Other (Midline or PICC line) Additional Instructions [x] Peripheral flush and dressing changes per protocol [x] Implanted port and central bottling line attendant: * Implanted port: 10 ml Normal Saline followed by 5 ml Heparin 100 units/ml Heparin flush after each use and monthly to maintain. [] May leave port accessed during therapy. [] May leave peripheral site accessed for duration of therapy. [x] If patient has SOB or respiratory distress, check oxygen saturation. If less than 90% or clinical signs of respiratory distress, administer oxygen at 2 L/min. via nasal cannula and notify physician. [x] Anaphylaxis/Reaction orders: * Stop infusion. * Keep IV line open with saline flush. * Notify physician. * Monitor vital signs every 15 minutes until symptoms resolve. * Check Oxygen saturation; Oxygen at 2 L/min. via nasal cannula if less than 90% or clinical signs of respiratory distress. * Administer diphenhydramine (Benadryl) 25 mg IV STAT, (unless patient has received as pre-med). May repeat once, if necessary. * Solu-Cortef 250 mg IVP over 30-60 seconds, use 100 mg vials for each dissolution. * Epinephrine (1mg/1 ml) 0.3 mg subcutaneously or IVP now with any signs of respiratory distress. * Check with physician for new additional pre-med orders if patient is re- challenged or re-treated. [x] May remove PICC line when treatment complete, after confirming with Physician. [x] If the patient is admitted to the hospital, the ED, or transferred via [facility] , complete transfer form including medication reconciliation order sheet. Laboratory Tests Weekly Labs: CBC w/diff, Creatinine, CRP, LFT's (Hepatic function test) Additional Information Please draw weekly labs, fax labs to numbers below. Please Call with abnormals, change in clinical condition or problems to: Dr.Tanuja Knowles or covering ID Physician Follow up appt: Follow up with [facility] Follow up with other MDs as planned. Counseling: Counseled about medication side effects Counseled about PICC line care and hand hygiene. Agnes Knowles MD October 01, 2017 14:02
--- NOTE | 2017-10-01 15:53 | HHI.PR ---
Subjective Remarks Pt eager to go home. requests her pain medication. no nausea or vomiting. tells me that she was told that PICC line will be placed tomorrow because she had a temp of 100.0 . Discussed w RN, and she confirmed that PICC team will wait until tomorrow for PICC placement. Objective Vitals Vital Signs Date Time Temp Pulse Resp B/P (MAP) Pulse Ox O2 Delivery O2 Flow Rate FiO2 10/01/17 12:00 98.1 92 19 112/67 (82) 100 10/01/17 08:00 98.1 92 19 112/67 (82) 100 10/01/17 04:00 99.1 96 16 103/56 (72) 99 10/01/17 00:00 98.4 104 18 111/60 (77) 99 09/30/17 20:00 100.0 96 20 102/57 (72) 98 09/30/17 16:00 98.3 94 16 97/52 (67) 100 I/O 09/30/17 09/30/17 09/30/17 10/01/17 10/01/17 10/01/17 07:00 15:00 23:00 07:00 15:00 23:00 Intake Total 1180 ml 150 ml 1900 ml 460 ml 84 ml Output Total 1000 ml Balance 180 ml 150 ml 1900 ml 460 ml 84 ml Intake Oral 780 ml 900 ml 360 ml IV Total 400 ml 150 ml 1000 ml 100 ml 84 ml Output Urine Total 1000 ml # Voids 4 # Bowel Movements 2 Result Diagram: 09/29/17 1052 09/29/17 1057 Imaging Last Impressions Brain MRI 09/25/17 0000 Signed Impressions: Service Date/Time: Monday, September 25, 2017 09:13 - CONCLUSION: Several subacute strokes in the left occipital region Radames Moyer MD Chest CT 09/24/17 0000 Signed Impressions: Service Date/Time: Sunday, September 24, 2017 13:46 - CONCLUSION: 6 mm right upper lobe lung nodule. Possible splenic infarcts. Radames Moyer MD Abdomen/Pelvis CT 09/24/17 0000 Signed Impressions: Service Date/Time: Sunday, September 24, 2017 13:46 - CONCLUSION: Probable splenic infarcts. Right renal infarct. Tiny gallstone. Mild gallbladder wall thickening in nondistended gallbladder, nonspecific Radames Moyer MD Knee X-Ray 09/23/17 0000 Signed Impressions: Service Date/Time: Saturday, September 23, 2017 19:48 - CONCLUSION: 1. No acute findings. Roge Short MD Head CT 09/21/17 1933 Signed Impressions: Service Date/Time: Thursday, September 21, 2017 19:53 - CONCLUSION: No acute disease. Ethan Salas MD Chest X-Ray 09/21/171911 Signed Impressions: Service Date/Time: Thursday, September 21, 2017 19:17 - CONCLUSION: No acute disease. Ethan Salas MD Objective Remarks awake, and alert, laying in bed lungs are clear regular rhythm abdomen soft A/P Problem List: (1) Sepsis ICD Code: A41.9 - Sepsis, unspecified organism Status: Acute (2) Septic arthritis of knee, left ICD Code: M00.9 - Pyogenic arthritis, unspecified Status: Acute (3) Elevated troponin ICD Code: R74.8 - Abnormal levels of other serum enzymes Status: Acute (4) Rhabdomyolysis ICD Code: M62.82 - Rhabdomyolysis Status: Acute (5) Hyponatremia ICD Code: E87.1 - Hypo-osmolality and hyponatremia Status: Acute (6) ANDRZEJ (acute kidney injury) ICD Code: N17.9 - Acute kidney failure, unspecified (7) IVDU (intravenous drug user) ICD Code: F19.90 - Other psychoactive substance use, unspecified, uncomplicated Assessment and Plan Assessment and Plan S. 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 resolved. Haldol- decrease to 0.5 mg po bid Elevated Trop: Trop 1.41, no acute EKG changes, no c/o chest pain, likely related to underlying Cocaine Abuse. Rhabdomyolysis: resolved ANDRZEJ: resolved. Hypokalemia- replaced Hyponatremia: imrpoved IVDU: Pt counselled. po pain meds. Severe protein calorie malnutrition low BMI, low albumin. ensure, MVT DVT Prophylaxis: SCD/Teds Discharge Planning Discussed w ID. pt is cleared for d/c once arrangements are made by CM with the IV infusion clinic. I did speak w CM and all arrangements have been made. PICC line will be placed tomorrow Anticipate d/c tomorrow morning Problem Qualifiers (1) Sepsis: Qualified Codes: A41.9 - Sepsis, unspecified organism (2) Septic arthritis of knee, left: Qualified Codes: M00.9 - Pyogenic arthritis, unspecified (3) Rhabdomyolysis: Qualified Codes: M62.82 - Rhabdomyolysis Leslie Mayorga MD October 01, 2017 15:53
[2017-10-01 16:00] VITALS: BP 140/63; PULSE 59; RESP 18; TEMP 97.9; O2SAT 99
[2017-10-01] MEDS: TEMAZEPAM 7.5 MG CAP PO PRN (19:55)
[2017-10-01] MEDS: cefTRIAXone INJ 2,000 MG in SODIUM CHLORIDE 0.9% INJ 100 ML IV SCH (19:55)
[2017-10-01 20:00] VITALS: BP 139/82; PULSE 18; RESP 20; TEMP 98.4; O2SAT 100
[2017-10-01] MEDS ORDERED: MICONAZOLE NITRATE 200 MG VAG SUPP VAGINAL SCH (21:00)
[2017-10-02] VITALS: BP 124/73; PULSE 117; RESP 20; TEMP 98.1; O2SAT 98
[2017-10-02 04:00] VITALS: BP 133/73; PULSE 113; RESP 20; TEMP 97.6; O2SAT 96
[2017-10-02 07:55] VITALS: PULSE 59
[2017-10-02 07:56] VITALS: PULSE 94
[2017-10-02 08:00] VITALS: BP 114/72; PULSE 95; RESP 17; TEMP 98.1; O2SAT 100
[2017-10-02] MEDS: SODIUM CHLORIDE 0.9% FLUSH 10 ML FLUSH IV FLUSH SCH (08:35)
[2017-10-02] MEDS: POTASSIUM CHLORIDE 20 MEQ CONTROLLED RELEASE TAB PO SCH (08:35)
[2017-10-02] MEDS: HALOPERIDOL 0.5 MG TAB PO SCH (08:35)
[2017-10-02] MEDS: ASPIRIN EC 81 MG TABEC PO SCH (08:35)
[2017-10-02] MEDS: MULTIVITAMIN TAB PO SCH (08:35)
[2017-10-02] MEDS: NICOTINE 14 MG/24 HR PATCH T-DERMAL SCH (08:37)
[2017-10-02] MEDS: REMOVE OLD PATCH T-DERMAL SCH (08:38)
[2017-10-02] MEDS: DOCUSATE SODIUM 50 MG/SENNA 8.6 MG TAB PO SCH (08:40)
--- NOTE | 2017-10-02 11:42 | HHI.DS ---
Discharge Summary Admission Date September 21, 2017 at 22:22 Discharge Date: October 02, 2017 Admitting Diagnosis (1) Sepsis ICD Code: A41.9 - Sepsis, unspecified organism Status: Acute (2) Septic arthritis of knee, left ICD Code: M00.9 - Pyogenic arthritis, unspecified Status: Acute (3) Elevated troponin ICD Code: R74.8 - Abnormal levels of other serum enzymes Status: Acute (4) Rhabdomyolysis ICD Code: M62.82 - Rhabdomyolysis Status: Acute (5) Hyponatremia ICD Code: E87.1 - Hypo-osmolality and hyponatremia Status: Acute (6) ANDRZEJ (acute kidney injury) ICD Code: N17.9 - Acute kidney failure, unspecified (7) IVDU (intravenous drug user) ICD Code: F19.90 - Other psychoactive substance use, unspecified, uncomplicated Procedures PICC line insertion Brief History - From Admission This is a 49-year-old female with a PMH of Tobacco Abuse and IVDU w/ Cocaine/ Dilaudid who presented to the ER w/ complaints of left knee pain, generalized malaise and fever. Admits to ongoing IVDU w/ Cocaine/Dilaudid. States left knee pain is constant, severe, 10/10, non-radiating, worse w/ movement. Demanding pain medication while in ER. On arrival, BP 130/79, HR 135, O2 sat 99 % on RA, Temp 101.5. WBC normal however elevated neutrophil count. Na 121. Creatinine 1.32, previously 0.81 on 03/25/2016. Lactic Acid 2.8. CPK 1479. Troponin 1.41. CRP 18. INR 1.3. UA negative. Urine Drug Screen positive for Cocaine. CT Head with no acute findings. Knee X-ray with small suprapatellar knee joint effusion. CXR with no acute findings. S/p knee joint aspiration in ER, noted to have purulent/cloudy drainage. S/p Vanc/Zosyn. Ortho/Cardiology consulted. No c/o chest pain or SOB CBC/BMP: 09/29/17 1052 09/29/17 1057 Imaging Last Impressions Brain MRI 09/25/17 0000 Signed Impressions: Service Date/Time: Monday, September 25, 2017 09:13 - CONCLUSION: Several subacute strokes in the left occipital region Radames Moyer MD Chest CT 09/24/17 0000 Signed Impressions: Service Date/Time: Sunday, September 24, 2017 13:46 - CONCLUSION: 6 mm right upper lobe lung nodule. Possible splenic infarcts. Radames Moyer MD Abdomen/Pelvis CT 09/24/17 0000 Signed Impressions: Service Date/Time: Sunday, September 24, 2017 13:46 - CONCLUSION: Probable splenic infarcts. Right renal infarct. Tiny gallstone. Mild gallbladder wall thickening in nondistended gallbladder, nonspecific Radames Moyer MD Knee X-Ray 09/23/17 0000 Signed Impressions: Service Date/Time: Saturday, September 23, 2017 19:48 - CONCLUSION: 1. No acute findings. Roge Short MD Head CT 09/21/17 193 Signed Impressions: Service Date/Time: Thursday, September 21, 2017 19:53 - CONCLUSION: No acute disease. Ethan Salas MD Chest X-Ray 09/21/171911 Signed Impressions: Service Date/Time: Thursday, September 21, 2017 19:17 - CONCLUSION: No acute disease. Ethan Salas MD PE at Discharge awake, and alert, laying in bed lungs are clear regular rhythm abdomen soft Pt update on day of discharge Pt excited to be discharged today. no complaints of pain, nausea or vomiting. Hospital Course Pt admitted for S. Bacteremia/ sepsis with endocarditis- with vegetation on Echo. Had Intermittent Fevers -Repeat blood cx negative from 09/23 and 09/28. On IV Ceftriaxone and CM has made arrangements for pt to continue as an outpatient at the infusion center. ID has cleared pt for d/c. Once PICC line placed and pt gets today's dose of IV abx, she will be discharged home. s/p IV Vancomycin- DC on 09/27 Left Knee Septic Joint: s/p knee joint aspiration - - no erythema, still with mild swelling ,, not hot up and ambulating, -seen by ortho- no further intervention PT daily Pt also had rhabdo and ANDRZEJ which resolved. Pt Condition on Discharge: Stable Discharge Disposition: Discharge Home Discharge Time: > 30 minutes Discharge Instructions DIET: Follow Instructions for: Heart Healthy Diet Activities you can perform: Regular-No Restrictions Follow up Referrals: PCP Follow-up - 1 Week @ [facility] New Medications: Ceftriaxone Inj (Ceftriaxone Inj) 2 Gram Inj 2 GM IV Q24H for Infection for 42 Days, VIAL 0 Refills Epinephrine Inj (Epinephrine Inj) 1 Mg/Ml (1 Ml) Inj 0.3 MG IV PUSH ONCE PRN for ALLERGIC REACTION, #1 VIAL Epinephrine Inj (Epinephrine Inj) 1 Mg/Ml (1 Ml) Inj 0.3 MG SQ ONCE PRN for ALLERGIC REACTION, #1 VIAL Give with any signs of respiratory distress. Hydrocortisone Inj (Solu-Cortef Inj) 250 Mg/2 Ml Inj 250 MG IV PUSH ONCE PRN for ALLERGIC REACTION, #1 VIAL 0 Refills Give over 30-60 seconds. Walker with Front Wheels (Walker with Front Wheels) 1 Mis Mis EA .XX DIRECTED, #1 0 Refills Oxycodone (Oxycodone) 5 Mg Tab 5 MG PO Q6H PRN for PAIN SCALE 6 TO 10, #20 TAB Leslie Mayorga MD October 02, 2017 11:42
[2017-10-02] MEDS ORDERED: OXYC-392 PO (11:47)
[2017-10-02] MEDS: NS + KCL 20 MEQ INJ 1,000 ML IV SCH (11:53)
[2017-10-02 12:00] VITALS: BP 107/60; PULSE 98; RESP 17; TEMP 97.6; O2SAT 99
[2017-10-02] MEDS ORDERED: cefTRIAXone INJ 2,000 MG in SODIUM CHLORIDE 0.9% INJ 100 ML IV SCH (14:00)
== END 2017-10-02 15:57 | disposition home or self-care (01) | DRG 871 ==
LOC: NEPE 18:00 → NEDA 22:22 → HCIS 09-22 00:01 → N07B 09-22 18:44
PROVIDERS: ADMIT Hospitalist; ATTEND Hospitalist
PROC: 0S9D3ZX Drainage of Left Knee Joint, Percutaneous Approach, Diagnostic (ICD-10-PCS; principal; 2017-09-21)
PROC: 02HV33Z Insertion of Infusion Device into Superior Vena Cava, Percutaneous Approach (ICD-10-PCS; 2017-10-02)
DX: A41.9 Sepsis, unspecified organism (principal); I21.4 Non-ST elevation (NSTEMI) myocardial infarction; I63.8 Other cerebral infarction; I33.0 Acute and subacute infective endocarditis; E43 Unspecified severe protein-calorie malnutrition; G92 Toxic encephalopathy; I76 Septic arterial embolism; M62.82 Rhabdomyolysis; M00.9 Pyogenic arthritis, unspecified; N17.9 Acute kidney failure, unspecified; E87.1 Hypo-osmolality and hyponatremia; F05 Delirium due to known physiological condition; N28.0 Ischemia and infarction of kidney; E83.51 Hypocalcemia; M25.462 Effusion, left knee; E86.0 Dehydration; M54.2 Cervicalgia; B95.0 Streptococcus, group A, as the cause of diseases classified elsewhere; E87.6 Hypokalemia; F15.20 Other stimulant dependence, uncomplicated; F19.94 Other psychoactive substance use, unspecified with psychoactive substance-induced mood disorder; B19.20 Unspecified viral hepatitis C without hepatic coma; B37.3 Candidiasis of vulva and vagina; D73.5 Infarction of spleen; T50.904A Poisoning by unspecified drugs, medicaments and biological substances, undetermined, initial encounter; M25.559 Pain in unspecified hip; M25.562 Pain in left knee; R19.7 Diarrhea, unspecified; R91.1 Solitary pulmonary nodule; F11.10 Opioid abuse, uncomplicated; F17.210 Nicotine dependence, cigarettes, uncomplicated; Z78.1 Physical restraint status; Z51.5 Encounter for palliative care
CPT/HCPCS: 70450; 70551; 71045; 71260; 73560; 74177; 76937; 80048; 80053; 80074; 80202; 80307; 81001; 82550; 82552; 83605; 83690; 83735; 84443; 84484; 84703; 85025; 85610; 85652; 85730; 86140; 86592; 86703; 87040; 87070; 87205; 89051; 89060; 93005; 93306; 96365; 96366; 96368; 96375; J0610; J0690; J0696; J1200; J1580; J1630; J1885; J2060; J2543; J3370; J3475; J3480; J7030; J7050; Q9963; Q9967

== ENCOUNTER 2017-10-17 05:06 | Inpatient (IN) | payer SELFPAY ==
[2017-10-17] VITALS (17 sets, daily range): BP systolic 126–202; BP diastolic 71–98; PULSE 91–121; RESP 16–21; TEMP 98.3–99.4; O2SAT 99–100
[~2017-10-17] VITALS: Ht 160 cm; Wt 47.9 kg
[~2017-10-17 05:06] MED LIST changes: +CEFT2INJ IV; -CIPR500T4 PO; +EPIN1INJ21 IV PUSH; +EPIN1INJ21 SQ; -IBUP-1116 PO; +OXYC-392 PO; -PERC5TAB12 PO; -ROBA750T3 PO; +SOLU250I IV PUSH; +WALKER WHEELS/F1 MIS
--- NOTE | 2017-10-17 06:51 | PD ---
HPI Chief Complaint: Online Services Manager Problem Time Seen by Provider: 06:44 Travel History International Travel<30 days: No Contact w/Intl Traveler<30days: No Traveled to known affect area: No History of Present Illness HPI 41-year-old female IV drug user with recent diagnosis of endocarditis has PICC line to the right upper extremity that she has been receiving IV antibiotics from daily. Patient admits to IV cocaine use on Saturday and Saturday through the PICC line and has been having difficulty with declining function since that time. Patient complains of pain and swelling of the right upper extremity. Patient denies other concerns or complaints. No fever chills. Patient is receiving ceftriaxone 2 g daily at 9 AM via the IV clinic. Patient has not voiced any other concerns or complaints. PFSH Past Medical History Narrative Medical IV drug abuse anxiety dyslipidemia endocarditis septic joint; nursing notes reviewed Anxiety: Yes Depression: Yes Cardiovascular Problems: Yes (Pericarditis) Diminished Hearing: No Tetanus Vaccination: Unknown Influenza Vaccination: No ?: Not LMP: 8 MONTHS AGO Social History Alcohol Use: No Tobacco Use: Yes (PACK A DAY ) Substance Use: Yes (IV, COCAINE, DILAUDID ) Allergies-Medications (Allergen,Severity, Reaction): Coded Allergies: No Known Allergies (Verified Allergy, Unknown, 10/16/17) Reported Meds & Prescriptions Reported Meds & Active Scripts Active Oxycodone (Oxycodone HCl) 5 Mg Tab 5 Mg PO Q6H PRN Epinephrine Inj 1 Mg/Ml (1 Ml) Inj 0.3 Mg SQ ONCE PRN Give with any signs of respiratory distress. Epinephrine Inj 1 Mg/Ml (1 Ml) Inj 0.3 Mg IV PUSH ONCE PRN Solu-Cortef Inj (Hydrocortisone Sodium Succinate) 250 Mg/2 Ml Inj 250 Mg IV PUSH ONCE PRN Give over 30-60 seconds. Ceftriaxone Inj (Ceftriaxone Sodium) 2 Gram Inj 2 Gm IV Q24H 42 Days Walker with Front Wheels (Device) 1 Mis Mis Ea .XX DIRECTED Review of Systems Except as stated in HPI: all other systems reviewed are Neg General / Constitutional: No: Fever, Chills HENT: No: Congestion Cardiovascular: No: Chest Pain or Discomfort Respiratory: No: Shortness of Breath Gastrointestinal: No: Abdominal Pain Genitourinary: No: Decreased Urinary Output Musculoskeletal: Positive: Edema (Right upper extremity), Pain, No: Myalgias, Arthralgias Skin: No Rash Neurologic: No: Weakness, Dizziness ( right upper extremity), Syncope Psychiatric: Positive: Anxiety, No: Depression Hematologic/Lymphatic: No: Easy Bruising Physical Exam Narrative GENERAL: Well-developed thin female in no acute distress no respiratory distress SKIN: Warm and dry. HEAD: Normocephalic. EYES: No scleral icterus. No injection or drainage. NECK: Supple, trachea midline. No JVD or lymphadenopathy. CARDIOVASCULAR: Regular rate and rhythm without murmurs, gallops, or rubs. RESPIRATORY: Breath sounds equal bilaterally. No accessory muscle use. GASTROINTESTINAL: Abdomen soft, non-tender, nondistended. MUSCULOSKELETAL: No cyanosis, or edema. Right upper extremity PICC line. Radial pulses 2+ to palpation. Frame Stripper strength 5/5. Soft tissue swelling. BACK: Nontender without obvious deformity. No CVA tenderness. Data Data Last Documented VS Vital Signs Date Time Temp Pulse Resp B/P (MAP) Pulse Ox O2 Delivery O2 Flow Rate FiO2 10/17/17 05:20 99.4 118 18 202/71 (114) 99 Orders Orders Us Arm Venous Doppler (10/17/17 ) Vascular Access Team Consult/P PRN (10/17/17 07:02) Vascular Poc Ultrasound (10/17/17 ) MDM Medical Decision Making Medical Screen Exam Complete: Yes Emergency Medical Condition: Yes Medical Record Reviewed: Yes Differential Diagnosis Occluded PICC line, noncompliance/substance abuse, DVT Narrative Course Ultrasound right upper extremity ordered; PICC line assessment ordered via vascular access team @ 0700 care signed over to Dr Azul follow up US and disposition Diagnosis Primary Impression: Right upper limb pain Deepa Dunham MD October 17, 2017 06:51
--- NOTE | 2017-10-17 07:54 | RADRPT ---
EXAM DATE: 10/17/2017 7:50 AM EDT AGE/SEX: 41 years / Female INDICATIONS: Pain. CLINICAL DATA: This is the patient's initial encounter. Patient reports that signs and symptoms have been present for 2 days and indicates a pain score of 0/10. MEDICAL/SURGICAL HISTORY: None. None. COMPAR[place]: [facility] [place]. . FINDINGS: A single AP view of the chest demonstrates the lungs to be symmetrically aerated without evidence of mass, infiltrate or effusion. The cardiomediastinal contours are unremarkable. Osseous structures a re intact. CONCLUSION: No acute cardiopulmonary disease Electronically signed by: Gigi Almendarez MD 10/17/2017 7:52 AM EDT
--- NOTE | 2017-10-17 08:58 | RADRPT ---
EXAM DATE: 10/17/2017 8:50 AM EDT AGE/SEX: 41 years / Female INDICATIONS: Right arm swelling. CLINICAL DATA: This is the patient's initial encounter. Patient reports that signs and symptoms have been present for 2 days and indicates a pain score of 10/10. MEDICAL/SURGICAL HISTORY: . Pericarditis. IV drug use. Depression. Anxiety. . Left hand repair . Carpal tunnel surgery. COMPARISON: No prior Vendor exams available for comparison. No external comparison. FINDINGS: There is occlusive thrombus in the left axillary artery. Spontaneous flow documented in the internal jugular and subclavian veins. There is also thrombosis within the basilic and cephalic veins.. CONCLUSION: 1. Occlusive thrombus right arm. Electronically signed by: Gigi Almendarez MD 10/17/2017 8:56 AM EDT
--- NOTE | 2017-10-17 09:47 | PD ---
Physical Exam Date Seen by Provider: October 17, 2017 Time Seen by Provider: 07:00 Narrative The patient was signed out to me by Dr. Dunham at change of shift. We are awaiting an ultrasound results of the right upper extremity. Patient was also to be evaluated by the PICC line team. Please see Dr. Dunham's H&P for further details. Data Data Last Documented VS Vital Signs Date Time Temp Pulse Resp B/P (MAP) Pulse Ox O2 Delivery O2 Flow Rate FiO2 10/17/17 09:53 98.7 93 21 147/98 (114) 100 Room Air Orders Orders Us Arm Venous Doppler (10/17/17 ) Vascular Access Team Consult/P PRN (10/17/17 07:02) Vascular Poc Ultrasound (10/17/17 ) Chest, Single Ap (10/17/17 ) Complete Blood Count With Diff (10/17/17 09:31) Basic Metabolic Panel (Bmp) (10/17/17 09:31) Prothrombin Time / Inr (Pt) (10/17/17 09:31) Act Partial Throm Time (Ptt) (10/17/17 09:31) Ceftriaxone Inj (Rocephin Inj) (10/17/17 10:00) MDM Medical Record Reviewed: Yes Supervised Visit with OPHELIA: No Differential Diagnosis DVT versus phlebitis versus cellulitis Narrative Course 41-year-old female with a history of IV drug abuse, endocarditis, valve replacement 2, who presents here with complaints of right upper extremity pain. Patient has a PICC line in place that is not functioning properly. The PICC line team evaluated it and placed a new PICC line. Ultrasound of the right upper extremity, shows a deep venous thrombosis. The patient will receive her 2 g of IV Rocephin. There is a call out to the admitting team. Diagnosis Primary Impression: Right upper limb pain Additional Impressions: Deep venous thrombosis of right upper extremity Malfunctioned PICC line. History of IV drug use History of endocarditis, currently being treated Ángel Azul MD October 17, 2017 09:47
[2017-10-17] MEDS ORDERED: cefTRIAXone INJ 2,000 MG in SODIUM CHLORIDE 0.9% INJ 100 ML IV ONE (10:00)
--- NOTE | 2017-10-17 10:15 | HHI.HP ---
[facility] Service Family Medicine Primary Care Physician No Primary Care Physician Admission Diagnosis Diagnoses: International Travel<30 Days: No Contact w/Intl Traveler<30days: No Known Affected Area: No History of Present Illness 41-year-old female with history of IV drug use and recent diagnosis of endocarditis with PICC line presents to the ED for right upper extremity pain. Patient states that that she started experiencing swelling in aching pain located around her PICC line. She states that the pain continued to get worse overnight and the pain started radiating to the right axilla. Patient states that she cannot raise her arm above her shoulder. She endorses right-sided sharp chest pain that is worse with deep breathing. She endorses subjective fevers over the weekend. She has been receiving antibiotic treatment, 2 g of Rocephin, at the infusion clinic here at [place]. She admits to using her PICC line for Dilaudid since she was released from the hospital on 10-02-17. She also reports that she recently used crack cocaine on Saturday through her PICC line. She reports that she has had watery, nonbloody diarrhea, 4 times a day for 1 week. She endorses mild generalized abdominal pain. She denies chills, nausea/ vomiting. Headache, vision changes, dysuria, and palpitations. (Kimberly Herrera MD R1) History of Present Illness 41-year-old female presenting to the emergency department with right upper extremity swelling and pain at the site of her PICC line and found to have an upper extremity DVT. She has a PICC line placed for treatment of endocarditis that is secondary to IV drug use. She was discharged from the hospital on with a PICC line in place in order to receive Rocephin to treat her group A beta strep endocarditis. Since her discharge, she has been using the PICC line for IV drugs including cocaine and Dilaudid. Over the last several days, she has noticed swelling and pain in the right upper extremity that has been progressively getting worse which has caused her to come to the emergency department. She endorses right upper arm pain worse with movement, occasional sharp, shooting chest pains worse with deep breaths as well as subjective fevers. She denies nausea or vomiting, she denies chills, she denies headaches , she denies vision changes, she denies back/neck pain. (Andres Martinez MD) Review of Systems Constitutional: DENIES: Fever, Weight loss, Chills Eyes: DENIES: Double Vision Ears, nose, mouth, throat: COMPLAINS OF: Running Nose Respiratory: COMPLAINS OF: Cough, DENIES: Sputum production, Shortness of breath Cardiovascular: COMPLAINS OF: Chest pain Gastrointestinal: COMPLAINS OF: Abdominal pain, Diarrhea, DENIES: Nausea, Vomiting Genitourinary: DENIES: Dysuria Musculoskeletal: DENIES: Joint Swelling Integumentary: DENIES: Rash Neurologic: DENIES: Headache (Kimberly Herrera MD R1) Past Family Social History Past Medical History IVDU Hx of Endocarditis Past Surgical History Left Hand Repair (Kimberly Herrera MD R1) Allergies: Coded Allergies: No Known Allergies (Verified Allergy, Unknown, 10/16/17) Family History Mom- stroke at 65, alive DM Dad- renal failure and sepsis, 70s Social History Live with sister Mom takes her to infusion clinic No alcohol history 1ppd for 28 years IVDU- cocaine/Dilaudid (Kimberly Herrera MD R1) Physical Exam Vital Signs Vital Signs Date Time Temp Pulse Resp B/P (MAP) Pulse Ox O2 Delivery O2 Flow Rate FiO2 10/17/17 09:53 98.7 93 21 147/98 (114) 100 Room Air 10/17/17 05:20 99.4 118 18 202/71 (114) 99 Physical Exam GENERAL: Thin, disheveled, female, looks older than her stated age, agitated and anxious, asking for pain meds SKIN: PICC line removed, area around PICC line is very mildly erythematous, no swelling or warmth noted HEAD: Atraumatic. Normocephalic. No temporal or scalp tenderness. EYES: Pupils equal round and reactive. Extraocular motions intact. No scleral icterus. No injection or drainage. ENT: Nose without bleeding, purulent drainage or septal hematoma. Throat without erythema, tonsillar hypertrophy or exudate. Uvula midline. Airway patent. NECK: Trachea midline. No JVD or lymphadenopathy. Supple, nontender, no meningeal signs. CARDIOVASCULAR: Regular rate and rhythm without murmurs, gallops, or rubs. RESPIRATORY: Clear to auscultation. Breath sounds equal bilaterally. No wheezes , rales, or rhonchi. GASTROINTESTINAL: Abdomen soft, non-tender, nondistended. No hepato-splenomegaly , or palpable masses. No guarding. MUSCULOSKELETAL: Extremities without clubbing, cyanosis, or edema. No joint tenderness, effusion, or edema noted. No calf tenderness. Negative Homans sign bilaterally. NEUROLOGICAL: Awake and alert. Cranial nerves II through XII intact. Motor and sensory grossly within normal limits. Five out of 5 muscle strength in all muscle groups. Normal speech. (Kimberly Herrera MD R1) Physical Exam GENERAL: Cachectic, thin, disheveled female in obvious discomfort lying on the bed. SKIN: Right upper extremity with diffuse swelling from elbow to shoulder, very tender to palpation. PICC line has been removed, no overlying skin changes such as erythema or warmth CARDIOVASCULAR: Tachycardic with regular rhythm, no obvious murmurs auscultated. RESPIRATORY: Clear to auscultation. Breath sounds equal bilaterally. No wheezes , rales, or rhonchi. GASTROINTESTINAL: Abdomen soft, non-tender, nondistended. NEUROLOGICAL: Awake and alert. (Andres Martinez MD) Caprini VTE Risk Assessment Caprini VTE Risk Assessment: Mod/High Risk (score >= 2) Caprini Risk Assessment Model Point Value = 1 Point Value = 2 Point Value = 3 Point Value = 5 Age 41-60 Minor surgery BMI > 25 kg/m2 Swollen legs Varicose veins or History of unexplained or recurrent spontaneous Oral contraceptives or hormone replacement Sepsis (< 1 month) Serious lung disease, including pneumonia (< 1 month) Abnormal pulmonary function Acute myocardial infarction Congestive heart failure (< 1 month) History of inflammatory bowel disease Medical patient at bed rest Age 61-74 Arthroscopic surgery Major open surgery (> 45 min) Laparoscopic surgery (> 45 min) Malignancy Confined to bed (> 72 hours) Immobilizing plaster cast Central venous access Age >= 75 History of VTE Family history of VTE Factor V Leiden Prothrombin [id number] Lupus anticoagulant Anticardiolipin antibodies Elevated serum homocysteine Heparin-induced thrombocytopenia Other congenital or acquired thrombophilia Stroke (< 1 month) Elective arthroplasty Hip, pelvis, or leg fracture Acute spinal cord injury (< 1 month) Prophylaxis Regimen Total Risk Factor Score Risk Level Prophylaxis Regimen 0-1 Low Early ambulation 2 Moderate Order ONE of the following: *Sequential Compression Device (SCD) *Heparin 5000 units SQ BID 3-4 Higher Order ONE of the following medications: *Heparin 5000 units SQ TID *Enoxaparin/Lovenox 40 mg SQ daily (WT < 150 kg, CrCl > 30 mL/min) *Enoxaparin/Lovenox 30 mg SQ daily (WT < 150 kg, CrCl > 10-29 mL/min) *Enoxaparin/Lovenox 30 mg SQ BID (WT < 150 kg, CrCl > 30 mL/min) AND/OR *Sequential Compression Device (SCD) 5 or more Highest Order ONE of the following medications: *Heparin 5000 units SQ TID (Preferred with Epidurals) *Enoxaparin/Lovenox 40 mg SQ daily (WT < 150 kg, CrCl > 30 mL/min) *Enoxaparin/Lovenox 30 mg SQ daily (WT < 150 kg, CrCl > 10-29 mL/min) *Enoxaparin/Lovenox 30 mg SQ BID (WT < 150 kg, CrCl > 30 mL/min) AND *Sequential Compression Device (SCD) (Kimberly Herrera MD R1) Assessment and Plan Assessment and Plan 41-year-old female with history of IV drug use and recent diagnosis of endocarditis with PICC line admitted for upper extremity DVT. Patient meets sepsis criteria. Code Status Full code Discussed Condition With Dr. Gonzalez, Dr. Martinez, and Ayla Harkins, MS4 (Kimberly Herrera MD R1) Attending Attestation Patient examined independently and case discussed with resident physicians Patient is appropriate for admission to inpatient I have read the above note and agree with the assessment/plan as discussed with me I was involved in all medical decision making for this patient Andres Martinez MD (Andres Martinez MD) Problem List: (1) Sepsis ICD Codes: A41.9 - Sepsis, unspecified organism Status: Acute Plan: Patient meets sepsis criteria elevated white count of 13.5 and tachycardic at 118, with known source. See plan below. (2) Deep venous thrombosis of right upper extremity ICD Codes: I82.621 - Acute embolism and thrombosis of deep veins of right upper extremity Status: Acute Plan: Patient presenting with upper extremity pain. Upper extremity ultrasound positive for occlusive thrombus in right arm. PICC line removed Heparin drip started Patient will most likely need oral anticoagulation coagulation upon discharge, possibly for 3 months (3) Endocarditis ICD Codes: I38 - Endocarditis, valve unspecified Plan: Patient with known strep endocarditis with septic emboli to distant organs. Patient has septic multiple infarcts to spleen, septic infarct of right kidney, subacute brain infarct. Patient patient has been receiving IV antibiotics at the infusion clinic. PICC line removed. Blood cultures pending. Continue Rocephin 2 g IV every 24h Consult infectious disease, recommendations appreciated. Patient known to Dr. Knowles. (4) Diarrhea ICD Codes: R19.7 - Diarrhea, unspecified Plan: Patient reports 1 week history of watery, nonbloody diarrhea Patient currently on antibiotic therapy for endocarditis. C. difficile, Giardia, enteric path, stool studies, and Hemoccult pending (5) IVDU (intravenous drug user) ICD Codes: F19.90 - Other psychoactive substance use, unspecified, uncomplicated Plan: Patient admits to IV Dilaudid and cocaine use UDS positive for amphetamines, cocaine, cannabinoids Patient positive for hep C 09/23/17 HIV nonreactive on 09/23/17 Pain control: Roxicodone 5 mg every 4h for pain 3-5, Roxicodone 10mg every 4h for pain 6-10, morphine for breakthrough pain (6) Hepatitis C ICD Codes: B19.20 - Unspecified viral hepatitis C without hepatic coma Plan: Patient positive for hep C 09/23/17 Will need outpatient treatment (7) Hypokalemia ICD Codes: E87.6 - Hypokalemia Status: Acute Plan: Potassium 3.1 on admission Replace orally continue to monitor (8) Hyponatremia ICD Codes: E87.1 - Hypo-osmolality and hyponatremia Status: Acute Plan: Slight hyponatremia with sodium of 134 on admission Continue to monitor (9) Nutrition, metabolism, and development symptoms ICD Codes: R63.8 - Other symptoms and signs concerning food and fluid intake Plan: Diet: Regular basic Fluids: Maintenance rate at 85mls/hr NS Vitals every 4, monitor I's and O's DVTppx: heparin drip, SCDs Case management consulted Patient seen and examined with JUAN C Ag. (Kimberly Herrera MD R1) Physician Certification 2 Midnight Certification Type: Admission for Inpatient Services Order for Inpatient Services The services are ordered in accordance with Medicare regulations or non- Medicare payer requirements, as applicable. In the case of services not specified as inpatient-only, they are appropriately provided as inpatient services in accordance with the 2-midnight benchmark. Estimated LOS (days): 2 2 days is the estimated time the patient will need to remain in the hospital, assuming treatment plan goals are met and no additional complications. Post-Hospital Plan: Home (Kimberly Herrera MD R1) Kimberly Herrera MD R1 October 17, 2017 10:15 Andres Martinez MD October 17, 2017 13:47
[2017-10-17] MEDS ORDERED: SODIUM CHLORIDE 0.9% FLUSH 10 ML FLUSH IV FLUSH PRN (11:15)
[2017-10-17] MEDS: SODIUM CHLORIDE 0.9% FLUSH 10 ML FLUSH IV FLUSH SCH ×2 (11:15→20:54)
[2017-10-17 11:33] LABS: BASOPHIL # 0.1 TH/MM3 (0-0.2); BASOPHIL % 0.8 % (0.0-2.0); EOSINOPHIL # 0.2 TH/MM3 (0-0.4); EOSINOPHIL % 1.5 % (0.0-4.0); HEMATOCRIT 31.2 % (35.0-46.0); HEMOGLOBIN 10.2 GM/DL (11.6-15.3); LYMPH % 15.1 % (9.0-44.0); MEAN CELL VOLUME 71.7 FL (80.0-100.0); MEAN CORPUSCULAR HEMOGLOBIN 23.5 PG (27.0-34.0); MEAN CORPUSCULAR HGB CONC 32.8 % (32.0-36.0); MEAN PLATELET VOLUME 8.3 FL (7.0-11.0); MONO % 8.6 % (0.0-8.0); MONOCYTE # 1.2 TH/MM3 (0-0.9); PLATELET COUNT 290 TH/MM3 (150-450); RED BLOOD COUNT 4.35 MIL/MM3 (4.00-5.30); RED CELL DISTRIBUTION WIDTH 15.3 % (11.6-17.2); WHITE BLOOD COUNT 13.5 TH/MM3 (4.0-11.0)
[2017-10-17 11:40] LABS: INTERNATIONAL NORMALIZED RATIO 1.1 RATIO; PROTHROMBIN TIME - PATIENT 11.4 SEC (9.8-11.6)
[2017-10-17] MEDS ORDERED: HEPARIN-D5W 25,000 U/250 ML 250 ML IV PRN (11:45)
[2017-10-17 11:56] LABS: BICARBONATE 29.1 MEQ/L (21.0-32.0); CALCIUM 9.3 MG/DL (8.5-10.1); CREATININE 0.75 MG/DL (0.50-1.00)
[2017-10-17] MEDS ORDERED: NALOXONE HCL 0.4 MG/ML AMP IV PUSH PRN (12:00)
[2017-10-17] MEDS ORDERED: ONDANSETRON ODT 4 MG TAB PO PRN (12:15)
[2017-10-17] MEDS: MORPHINE SULFATE 4 MG/ML INJ IV PUSH PRN ×3 (12:28→20:51)
[2017-10-17] MEDS ORDERED: POTASSIUM CHLORIDE 20 MEQ CONTROLLED RELEASE TAB PO ONE (13:00)
--- NOTE | 2017-10-17 13:19 | PD.ID.CON ---
History of Present Illness Service Infectious disease Consult Requested By Dr. Herrera Reason for Consult IVDU being treated for endocarditis via PICC line admitted with RUE DVT Primary Care Physician No Primary Care Physician Diagnoses: History of Present Illness Patient seen and examined on behalf of Dr. Knowles This is a 41yo female who is well known to my service with history of IVDU who was recently hospitalized for sepsis, strep bacteremia, strep MV endocarditis with septic emboli to distant organs, left knee septic arthritis and acute metabolic encephalopathy secondary to subacute brain infarction and was discharged on 10/02/17 with PICC line and continued IV 2gm Ceftriaxone infusions daily until November 04 under the care and supervision of her mother and sister who was admitted for pain and swelling in right upper extremity secondary to DVT. Patient admits she has been shooting up in her PICC line and used crack cocaine yesterday morning. Patient states that a few days ago she began to experience pain around the PICC line that became unbearable overnight with radiation into the right axilla. She has been unable to lift her arm. She was sent to the ED from the infusion center for blocked PICC line. She denies any fever or chills but endorses night sweats. She also complains of cough with whitish sputum production. She complains of nausea and watery diarrhea up to four times a day for the past week. She denies any chest pain or shortness of breath. She denies any dysuria. In the ED, she presented with sepsis with white count of 13.5, tachycardia and US of the RUE confirmed occlusive thrombus. CXR revealed no acute cardiopulmonary process. Her temperature at presentation was 99.4. On 10/15, her CRP was 11.40 which was an increase from 3.10 on 10/07. Today, her UDS positive for amphetamines, cocaine and cannabinoids. Infectious disease consultation has been requested for evaluation and management of endocarditis. (Viji Camilo) Review of Systems Except as stated in HPI: all other systems reviewed are Neg (Viji Camilo) Past Family Social History Allergies: Coded Allergies: No Known Allergies (Verified Allergy, Unknown, 10/16/17) Past Medical History IVDU Endocarditis with multiple septic embolic including the brain currently undergoing daily IV Ceftriaxone infusions Past Surgical History Left hand repair Reported Medications Oxycodone (Oxycodone HCl) 5 Mg Tab 5 Mg PO Q6H PRN Epinephrine Inj 1 Mg/Ml (1 Ml) Inj 0.3 Mg SQ ONCE PRN Give with any signs of respiratory distress. Epinephrine Inj 1 Mg/Ml (1 Ml) Inj 0.3 Mg IV PUSH ONCE PRN Solu-Cortef Inj (Hydrocortisone Sodium Succinate) 250 Mg/2 Ml Inj 250 Mg IV PUSH ONCE PRN Give over 30-60 seconds. Ceftriaxone Inj (Ceftriaxone Sodium) 2 Gram Inj 2 Gm IV Q24H 42 Days Walker with Front Wheels (Device) 1 Mis Mis Ea .XX DIRECTED Active Ordered Medications Current Medications Medications (Trade) Dose Ordered Sig/Radha Route Start Time Stop Time Status Last Admin (NS Flush) 2 ml UNSCH PRN IV FLUSH 10/17/17 11:15 (NS Flush) 2 ml BID IV FLUSH 10/17/17 11:15 10/17/17 11:15 Heparin Sodium/ Dextrose 250 ml @ 8 mls/hr TITRATE PRN IV 10/17/17 11:45 10/17/17 12:30 (Roxicodone) 5 mg Q4H PRN PO 10/17/17 12:00 (Roxicodone) 10 mg Q4H PRN PO 10/17/17 12:00 (Zofran Odt) 4 mg Q6H PRN PO 10/17/17 12:15 (Narcan Inj) 0.4 mg UNSCH PRN IV PUSH 10/17/17 12:00 (Morphine Inj) 4 mg Q3H PRN IV PUSH 10/17/17 12:00 10/17/17 12:28 Ceftriaxone Sodium 2000 mg/ Sodium Chloride 100 ml @ 200 mls/hr Q24H IV 10/18/17 11:00 Sodium Chloride 1,000 ml @ 85 mls/hr [id number] IV 10/17/17 12:43 UNV (KCl) 40 meq ONCE ONCE PO 10/17/17 13:00 10/17/17 13:01 UNV Family History Mother, stroke DM Social History + tobacco use 1ppd x 28yrs. Denies any EtOH use. IVDU with cocaine and Dilaudid (Viji Camilo) Physical Exam Vital Signs Vital Signs Date Time Temp Pulse Resp B/P (MAP) Pulse Ox O2 Delivery O2 Flow Rate FiO2 10/17/17 11:56 10/17/17 09:53 98.7 93 21 135/91 (106) 100 Room Air 10/17/17 07:30 91 20 147/98 (114) 100 10/17/17 05:20 99.4 118 18 202/71 (114) 99 Physical Exam GENERAL: This is a thin, disheveled ill appearing female patient who appears much older than her stated age, in no apparent distress. Appears agitated, smacking her lips, moving around constantly in the bed. +Pressured speech. SKIN: No rashes, ecchymoses or lesions. Cool and dry. HEAD: Atraumatic. Normocephalic. No temporal or scalp tenderness. EYES: Pupils equal round and reactive. Extraocular motions intact. No scleral icterus. No injection or drainage. ENT: Nose without bleeding, purulent drainage or septal hematoma. Throat without erythema, tonsillar hypertrophy or exudate. Uvula midline. Airway patent. NECK: Trachea midline. No JVD or lymphadenopathy. Supple, nontender, no meningeal signs. CARDIOVASCULAR: Regular rate and rhythm without murmurs, gallops, or rubs. RESPIRATORY: Clear to auscultation. Breath sounds equal bilaterally. No wheezes , rales, or rhonchi. GASTROINTESTINAL: Abdomen soft, non-tender, nondistended. No hepato-splenomegaly , or palpable masses. No guarding. MUSCULOSKELETAL: Extremities without clubbing or cyanosis. No BLE edema. No calf tenderness. RUE mildly edematous and erythematous, tender to palpation. Decreased ROM in RUE. NEUROLOGICAL: Awake and alert. Cranial nerves II through XII grossly intact. Motor and sensory grossly within normal limits. Normal speech. PSYCHIATRIC: Agitated, moving constantly, cooperative with exam PIV with no e/o infection left forearm Laboratory Laboratory Tests Test 10/17/17 10:20 10/17/17 11:00 White Blood Count 13.5 Red Blood Count 4.35 Hemoglobin 10.2 Hematocrit 31.2 Mean Corpuscular Volume 71.7 Mean Corpuscular Hemoglobin 23.5 Mean Corpuscular Hemoglobin Concent 32.8 Red Cell Distribution Width 15.3 Platelet Count 290 Mean Platelet Volume 8.3 Neutrophils (%) (Auto) 74.0 Lymphocytes (%) (Auto) 15.1 Monocytes (%) (Auto) 8.6 Eosinophils (%) (Auto) 1.5 Basophils (%) (Auto) 0.8 Neutrophils # (Auto) 10.0 Lymphocytes # (Auto) 2.0 Monocytes # (Auto) 1.2 Eosinophils # (Auto) 0.2 Basophils # (Auto) 0.1 CBC Comment DIFF FINAL Differential Comment Prothrombin Time 11.4 Prothromb Time International Ratio 1.1 Activated Partial Thromboplast Time 31.3 Blood Urea Nitrogen 4 Creatinine 0.75 Random Glucose 77 Calcium Level 9.3 Sodium Level 134 Potassium Level 3.1 Chloride Level 96 Carbon Dioxide Level 29.1 Anion Gap 9 Estimat Glomerular Filtration Rate 86 Urine Opiates Screen NEG Urine Barbiturates Screen NEG Urine Amphetamines Screen POS Urine Benzodiazepines Screen NEG Urine Cocaine Screen POS Urine Cannabinoids Screen POS Date/Time Source Procedure Growth Status 10/17/17 10:40 Blood Peripheral Aerobic Blood Culture Pending Received 10/17/17 10:40 Blood Peripheral Anaerobic Blood Culture Pending Received (Viji Camilo) Result Diagram: 10/17/17 1020 10/17/17 1020 Imaging Last Impressions Upper Extremity Ultrasound 10/17/17 0000 Signed Impressions: CONCLUSION: 1. Occlusive thrombus right arm. Chest X-Ray 10/17/17 0000 Signed Impressions: CONCLUSION: No acute cardiopulmonary disease (Viji Camilo) Assessment and Plan Assessment and Plan Severe sepsis RUE DVT -PICC line removed, started on Heparin drip Acute metabolic encephalopathy: sepsis, IV drug use Strep MV endocarditis with septic emboli to distant organs including the brain Several subacute strokes left occipital region last admission IVDU, last used crack cocaine 10/16 -UDS + amphetamines, cocaine and cannabinoids Hep C Diarrhea RECS: Continue on IV Ceftriaxone DVT management per primary team Follow up on stool studies including C diff Follow up on blood culture results until finalized Follow clinically (Viji Camilo) Assessment and Plan The exam, history, and the medical decision-making described in the above note were completed with the assistance of the mid-level provider. I reviewed and agree with the findings presented. I attest that I had a [id number] encounter with the patient on the same day, and personally performed and documented my assessment and findings in the medical record. Patient known to me from prior admission. Endocarditis with multiple septic emboli including brain. Discharged with sister to her home. Recd call from Patricia in Infusion center patient was doing drugs thru PICC line reportedly. PICC was blocked. Sent to ED. Doppler UE: Thrombus at PICC site. PICC line removed. Dw Dr Herrera: Blood cultures sent. When I entered room patient was screaming out loud in anger cursing away using the F... word and telling someone on phone that in no way she will stay in hospital to complete her remaining therapy. IP LITIGATION PARALEGAL was in the room with me when this happened. Patient was extremely restless agitated and mumbling away and cursing away. On exam CTA BL Abd soft NT Alert oriented moves all 4 extremities. Recs Continue Ceftriaxone IV follow cultures follow clinically. Check LFTs. If overnight change in condition s/o sepsis start Vanco IV and Micafungin IV for line infection will likely need to stay in hospital to complete therapy since she is non compliant and has abused her PICC line. Psych consult to assess competency ? need for Zuñiga act. (Agnes Knowles MD) Viji Camilo October 17, 2017 13:19 Agnes Knowles MD October 17, 2017 18:10
[2017-10-17] MEDS: SODIUM CHLOR 0.9% 1000 ML INJ 1,000 ML IV SCH (14:11)
--- NOTE | 2017-10-17 14:32 | PD.PN.STU ---
Subjective Remarks 41 y/o female with history of bacterial endocarditis with PICC line presents to ED with complaint of worsening RUE pain beginning yesterday. The pain is localized around PICC line and sometimes radiates upwards towards her right axilla. She also reports associated swelling around PICC line site and limited mobility of her right arm. She hasn't noticed any skin changes or drainage. She admits to using her PICC line for Dilaudid since discharge from the hospital on 10/02/17 and for crack cocaine yesterday. She also complains of sharp, right-sided chest pain that worsens with deep breathing. She thinks this pain may be related to her anxiety. She denies any associated shortness of breath, diaphoresis, or palpitations. She reports watery, nonbloody diarrhea for the past 1 week, up to 4 episodes a day. Her last episode of diarrhea was yesterday. She has also had mild generalized abdominal pain. Reports subjective fevers over the weekend. Denies any chills, nausea, vomiting , or changes in urination patterns. Denies headache, lightheadedness, or vision changes. PMH: IVDA, Bacterial Endocarditis PSH: Left hand repair Allergies: NKDA Family History: Stroke (mother), Renal failure (Father) Social History: Lives with sister. Smokes 1ppd x 28 years. Denies use of alcohol. Reports use of Dilaudid and cocaine. Objective Vitals Vital Signs Date Time Temp Pulse Resp B/P (MAP) Pulse Ox O2 Delivery O2 Flow Rate FiO2 10/17/17 11:56 10/17/17 09:53 98.7 93 21 135/91 (106) 100 Room Air 10/17/17 07:30 91 20 147/98 (114) 100 10/17/17 05:20 99.4 118 18 202/71 (114) 99 Result Diagram: 10/17/17 1020 10/17/17 1020 Objective Remarks GENERAL: Well-developed, under-nourished female that appears older than stated age. She is thin, disheveled and very agitated. In acute distress, requesting pain medications. SKIN: PICC line has been removed, gauze covering site. Area is mildly erythematous. No swelling, warmth, or drainage. HEAD: Atraumatic. Normocephalic. EYES: Pupils equal round and reactive. Extraocular motions intact. No scleral icterus. No injection or drainage. ENT: Nose without bleeding, purulent drainage or septal hematoma. Throat without erythema, tonsillar hypertrophy or exudate. Poor dentition, several dental caries noted. Uvula midline. Airway patent. NECK: Trachea midline. No JVD or lymphadenopathy. Supple, nontender, no meningeal signs. CARDIOVASCULAR: Regular rate and rhythm without murmurs, gallops, or rubs. RESPIRATORY: Clear to auscultation. Breath sounds equal bilaterally. No wheezes , rales, or rhonchi. GASTROINTESTINAL: Abdomen soft, non-tender, nondistended. No hepato-splenomegaly , or palpable masses. No guarding. MUSCULOSKELETAL: Extremities without clubbing, cyanosis, or edema. No joint tenderness, effusion, or edema noted. No calf tenderness. Negative Homans sign bilaterally. NEUROLOGICAL: Awake and alert. Oriented x3. Cranial nerves II through XII intact. Motor and sensory grossly within normal limits. Five out of 5 muscle strength in all muscle groups. Normal speech. A/P Assessment and Plan 41 y/o female with bacterial endocarditis with PICC line admitted for RUE DVT. Code Status Full code Discussed Condition With Dr. Gonzalez, Dr. Martinez, and Dr Herrera Problem List: (1) Sepsis ICD Codes: A41.9 - Sepsis, unspecified organism Status: Acute Plan: Patient meets sepsis criteria elevated white count of 13.5 and tachycardic at 118, with known source. (2) Deep venous thrombosis of right upper extremity ICD Codes: I82.621 - Acute embolism and thrombosis of deep veins of right upper extremity. Status: Acute Plan: Patient presented with severe RUE pain and swelling around area of PICC line. Upper extremity U/S revealed occlusive thrombus. PICC line was removed and Heparin drip started. Will plan to discharge patient with oral anticoagulation. (3) Endocarditis ICD Codes: I38 - Endocarditis, valve unspecified Plan: Patient with known strep endocarditis with septic emboli to distant organs. Patient has septic multiple infarcts to spleen, septic infarct of right kidney, subacute brain infarct. Patient patient has been receiving IV antibiotics at the infusion clinic. PICC line removed. Blood cultures pending. Continue Rocephin 2 g IV every 24h Consult infectious disease, recommendations appreciated. Patient known to Dr. Knowles. (4) Diarrhea ICD Codes: R19.7 - Diarrhea, unspecified Plan: Patient reports 1 week history of watery, nonbloody diarrhea Patient currently on antibiotic therapy for endocarditis. C. difficile, Giardia, enteric path, stool studies, and Hemoccult pending (5) IVDU (intravenous drug user) ICD Codes: F19.90 - Other psychoactive substance use, unspecified, uncomplicated Plan: Patient admits to IV Dilaudid and cocaine use UDS positive for amphetamines, cocaine, cannabinoids Patient positive for hep C 09/23/17 HIV nonreactive on 09/23/17 Pain control: Roxicodone 5 mg every 4h for pain 3-5, Roxicodone 10mg every 4h for pain 6-10, morphine for breakthrough pain (6) Hepatitis C ICD Codes: B19.20 - Unspecified viral hepatitis C without hepatic coma Plan: Patient positive for hep C 09/23/17 Will need outpatient treatment (7) Hypokalemia ICD Codes: E87.6 - Hypokalemia Status: Acute Plan: Potassium 3.1 on admission Will replace orally and continue to monitor. (8) Hyponatremia ICD Codes: E87.1 - Hypo-osmolality and hyponatremia Status: Acute Plan: Slight hyponatremia with sodium of 134 on admission Continue to monitor (9) Nutrition, metabolism, and development symptoms ICD Codes: R63.8 - Other symptoms and signs concerning food and fluid intake Plan: Diet: Regular basic Fluids: Maintenance rate at 85mls/hr NS Vitals every 4, monitor I's and O's DVTppx: heparin drip, SCDs Case management consulted Ayla Harkins October 17, 2017 14:32
[2017-10-17] MEDS ORDERED: LORazepam 2 MG TAB PO PRN (15:45)
[2017-10-17] MEDS ORDERED: LORazepam 2 MG/ML VIAL IV PUSH PRN ×2 (15:45)
[2017-10-17] MEDS ORDERED: cloNIDine HCL 0.1 MG TAB PO PRN (15:45)
[2017-10-17] MEDS ORDERED: FLUMAZENIL 0.5 MG/5 ML VIAL IV PUSH PRN (15:45)
[2017-10-17] MEDS ORDERED: LORazepam 1 MG TAB PO PRN (15:45)
[2017-10-17] MEDS: MULTIVITAMINS/MINERALS THERAPEUTIC TAB PO SCH (16:28)
[2017-10-17] MEDS: FOLIC ACID 1 MG TAB PO SCH (16:28)
[2017-10-17] MEDS: THIAMINE HCL 100 MG TAB PO SCH (16:30)
[2017-10-17] MEDS: LORazepam 2 MG/ML VIAL IV PUSH PRN ×2 (17:59→22:30)
[2017-10-17] MEDS ORDERED: LORazepam 0.5 MG TAB PO PRN (18:00)
[2017-10-17] MEDS ORDERED: LORazepam 0.5 MG TAB PO SCH (18:00)
[2017-10-17] MEDS ORDERED: HALOPERIDOL 1 MG TAB PO SCH (18:15)
[2017-10-17] MEDS: HALOPERIDOL 1 MG TAB PO SCH ×2 (20:54→22:57)
[2017-10-18] VITALS (21 sets, daily range): BP systolic 114–141; BP diastolic 76–96; PULSE 96–109; RESP 17–21; TEMP 97.6–98.6; O2SAT 98–100
[2017-10-18] MEDS: SODIUM CHLOR 0.9% 1000 ML INJ 1,000 ML IV SCH ×2 (00:29→01:57)
[2017-10-18] MEDS: MORPHINE SULFATE 4 MG/ML INJ IV PUSH PRN ×4 (00:59→23:26)
[2017-10-18 03:34] LABS: ALBUMIN 2.1 GM/DL (3.4-5.0); ALKALINE PHOSPHATASE 84 U/L (45-117); ALT (GPT) 16 U/L (10-53); AST (GOT) 13 U/L (15-37); BICARBONATE 27.9 MEQ/L (21.0-32.0); CALCIUM 8.1 MG/DL (8.5-10.1); CHLORIDE 104 MEQ/L (98-107); GLOMERULAR FILTRATION RATE 79 ML/MIN (>89); GLUCOSE,RANDOM 130 MG/DL (74-106); SODIUM (NA) 142 MEQ/L (136-145); TOTAL BILIRUBIN ADULT 0.2 MG/DL (0.2-1.0); TOTAL PROTEIN 7.1 GM/DL (6.4-8.2)
[2017-10-18 03:35] LABS: BLOOD UREA NITROGEN 6 MG/DL (7-18); HEMATOCRIT 26.3 % (35.0-46.0); HEMOGLOBIN 8.8 GM/DL (11.6-15.3); MEAN CELL VOLUME 71.8 FL (80.0-100.0); MEAN CORPUSCULAR HGB CONC 33.4 % (32.0-36.0); MEAN PLATELET VOLUME 8.4 FL (7.0-11.0); PLATELET COUNT 220 TH/MM3 (150-450); RED BLOOD COUNT 3.66 MIL/MM3 (4.00-5.30); RED CELL DISTRIBUTION WIDTH 15.1 % (11.6-17.2); WHITE BLOOD COUNT 8.3 TH/MM3 (4.0-11.0)
[2017-10-18 04:05] LABS: BANDS 3 % (0-6); BASOPHILS 1 % (0-2); LYMPHOCYTES 27 % (9-44); MONOCYTES 1 % (0-8); NEUTROPHIL # MANUAL DIFF 5.7 TH/MM3 (1.8-7.7); POLYS (SEG NEUTROPHILS) 66 % (16-70)
[2017-10-18] MEDS: HALOPERIDOL 1 MG TAB PO SCH ×2 (05:46→17:44)
--- NOTE | 2017-10-18 06:41 | HHI.IDPN ---
Subjective Subjective Remarks Patient seen and examined on behalf of Dr. Knowles This is a 41yo female who is well known to my service with history of IVDU who was recently hospitalized for sepsis, strep bacteremia, strep MV endocarditis with septic emboli to distant organs, left knee septic arthritis and acute metabolic encephalopathy secondary to subacute brain infarction and was discharged on 10/02/17 with PICC line and continued IV 2gm Ceftriaxone infusions daily until November 04 under the care and supervision of her mother and sister who was admitted for pain and swelling in right upper extremity secondary to DVT. Patient admits she has been shooting up in her PICC line and used crack cocaine yesterday morning. Patient states that a few days ago she began to experience pain around the PICC line that became unbearable overnight with radiation into the right axilla. She has been unable to lift her arm. She denies any fever or chills but endorses night sweats. She also complains of cough with whitish sputum production. She complains of nausea and watery diarrhea up to four times a day for the past week. She denies any chest pain or shortness of breath. She denies any dysuria. In the ED, she presented with sepsis with white count of 13.5, tachycardia and US of the RUE confirmed occlusive thrombus. CXR revealed no acute cardiopulmonary process. Her temperature at presentation was 99.4. On 10/15, her CRP was 11.40 which was an increase from 3.10 on 10/07. Today, her UDS positive for amphetamines, cocaine and cannabinoids. Infectious disease consultation has been requested for evaluation and management of endocarditis. Notes reviewed discussed with nursing staff patient requesting pain medication and nicotine patch she denies any fever or chills c/o being easily upset and agitated able to tolerate dinner no N/V no abdominal pain +loose watery stools but sample not sent due to sample being contaminated with urine no rash no dysuria afebrile WBC WNL LFTs WNL BCX pending Antibiotics IV Ceftriaxone Current Medications Medications (Trade) Dose Ordered Sig/Radha Route Start Time Stop Time Status Last Admin (NS Flush) 2 ml UNSCH PRN IV FLUSH 10/17/17 11:15 (NS Flush) 2 ml BID IV FLUSH 10/17/17 11:15 10/17/17 11:15 Heparin Sodium/ Dextrose 250 ml @ 8 mls/hr TITRATE PRN IV 10/17/17 11:45 10/17/17 12:30 (Roxicodone) 5 mg Q4H PRN PO 10/17/17 12:00 (Roxicodone) 10 mg Q4H PRN PO 10/17/17 12:00 (Zofran Odt) 4 mg Q6H PRN PO 10/17/17 12:15 (Narcan Inj) 0.4 mg UNSCH PRN IV PUSH 10/17/17 12:00 (Morphine Inj) 4 mg Q3H PRN IV PUSH 10/17/17 12:00 10/18/17 05:44 Ceftriaxone Sodium 2000 mg/ Sodium Chloride 100 ml @ 200 mls/hr Q24H IV 10/18/17 11:00 Sodium Chloride 1,000 ml @ 85 mls/hr [id number] IV 10/17/17 12:43 10/18/17 01:57 (Folate) 1 mg DAILY PO 10/17/17 15:45 10/22/17 15:44 10/17/17 16:28 (Vitamin B1) 100 mg DAILY PO 10/17/17 15:45 10/17/17 16:30 (Theragran M Tab) 1 tab DAILY PO 10/17/17 15:45 10/22/17 15:44 10/17/17 16:28 (Romazicon Inj) 0.2 mg Q1M PRN IV PUSH 10/17/17 15:45 (Ativan) 1 mg Q4H PRN PO 10/17/17 15:45 (Ativan Inj) 1 mg Q4H PRN IV PUSH 10/17/17 15:45 10/17/17 16:22 (Ativan) 2 mg Q2H PRN PO 10/17/17 15:45 (Ativan Inj) 2 mg Q2H PRN IV PUSH 10/17/17 15:45 10/18/17 04:34 (Ativan Inj) 2 mg Q1H PRN IV PUSH 10/17/17 15:45 10/17/17 22:30 (Ativan Inj) 2 mg Q15M PRN IV PUSH 10/17/17 15:45 10/17/17 17:59 (Catapres) 0.1 mg Q6H PRN PO 10/17/17 15:45 (Haldol) 1 mg BID@0600,1800 PO 10/17/17 18:30 10/18/17 05:46 Lines PIV with no e/o infection Past Medical History IVDU Endocarditis with multiple septic emboli including the brain currently undergoing daily IV Ceftriaxone infusions (Viji Camilo) Allergies: Coded Allergies: No Known Allergies (Verified Allergy, Unknown, 10/16/17) Objective . Vital Signs Date Time Temp Pulse Resp B/P (MAP) Pulse Ox O2 Delivery O2 Flow Rate FiO2 10/18/17 05:50 16 10/18/17 05:00 102 10/18/17 04:30 97.8 104 18 119/80 (93) 99 10/18/17 04:01 109 10/18/17 03:00 106 10/18/17 02:00 108 10/18/17 01:08 105 10/18/17 00:05 108 10/17/17 23:30 98.3 110 20 126/79 (95) 100 10/17/17 23:00 112 10/17/17 22:00 102 10/17/17 21:00 100 10/17/17 20:48 99.3 98 16 149/92 (111) 99 10/17/17 20:01 104 10/17/17 19:00 104 10/17/17 18:00 102 10/17/17 17:00 102 10/17/17 16:00 112 10/17/17 15:00 99.1 121 20 151/92 (111) 100 10/17/17 15:00 100 10/17/17 14:00 100 10/17/17 13:00 92 10/17/17 12:00 99.0 92 16 160/98 (118) 100 10/17/17 11:56 10/17/17 09:53 98.7 93 21 135/91 (106) 100 Room Air 10/17/17 07:30 91 20 147/98 (114) 100 . Laboratory Tests Test 10/17/17 10:20 10/18/17 02:58 White Blood Count 13.5 TH/MM3 8.3 TH/MM3 Red Blood Count 4.35 MIL/MM3 3.66 MIL/MM3 Hemoglobin 10.2 GM/DL 8.8 GM/DL Hematocrit 31.2 % 26.3 % Mean Corpuscular Volume 71.7 FL 71.8 FL Mean Corpuscular Hemoglobin 23.5 PG 24.0 PG Mean Corpuscular Hemoglobin Concent 32.8 % 33.4 % Red Cell Distribution Width 15.3 % 15.1 % Platelet Count 290 TH/MM3 220 TH/MM3 Mean Platelet Volume 8.3 FL 8.4 FL Neutrophils (%) (Auto) 74.0 % Lymphocytes (%) (Auto) 15.1 % Monocytes (%) (Auto) 8.6 % Eosinophils (%) (Auto) 1.5 % Basophils (%) (Auto) 0.8 % Neutrophils # (Auto) 10.0 TH/MM3 Lymphocytes # (Auto) 2.0 TH/MM3 Monocytes # (Auto) 1.2 TH/MM3 Eosinophils # (Auto) 0.2 TH/MM3 Basophils # (Auto) 0.1 TH/MM3 CBC Comment DIFF FINAL AUTO DIFF Differential Comment FINAL DIFF MANUAL Differential Total Cells Counted 100 Neutrophils % (Manual) 66 % Band Neutrophils % 3 % Lymphocytes % 27 % Monocytes % 1 % Eosinophils % 2 % Basophils % 1 % Neutrophils # (Manual) 5.7 TH/MM3 Atypical Lymphocytes % Platelet Estimate NORMAL Platelet Morphology Comment NORMAL Red Cell Morphology Comment NORMAL Hematology Comments Laboratory Tests Test 10/17/17 10:20 10/17/17 19:47 10/18/17 02:58 Blood Urea Nitrogen 4 MG/DL 6 MG/DL Creatinine 0.75 MG/DL 0.80 MG/DL Random Glucose 77 MG/DL 130 MG/DL Calcium Level 9.3 MG/DL 8.1 MG/DL Sodium Level 134 MEQ/L 142 MEQ/L Potassium Level 3.1 MEQ/L 3.4 MEQ/L Chloride Level 96 MEQ/L 104 MEQ/L Carbon Dioxide Level 29.1 MEQ/L 27.9 MEQ/L Anion Gap 9 MEQ/L 10 MEQ/L Estimat Glomerular Filtration Rate 86 ML/MIN 79 ML/MIN Lactic Acid Level 1.5 mmol/L Total Protein 7.1 GM/DL Albumin 2.1 GM/DL Alkaline Phosphatase 84 U/L Aspartate Amino Transf (AST/SGOT) 13 U/L Alanine Aminotransferase (ALT/SGPT) 16 U/L Total Bilirubin 0.2 MG/DL Microbiology Date/Time Source Procedure Growth Status 10/17/17 10:40 Blood Peripheral Aerobic Blood Culture Pending Received 10/17/17 10:40 Blood Peripheral Anaerobic Blood Culture Pending Received 10/17/17 10:30 Blood Peripheral Aerobic Blood Culture Pending Received 10/17/17 10:30 Blood Peripheral Anaerobic Blood Culture Pending Received Imaging Last Impressions Upper Extremity Ultrasound 10/17/17 0000 Signed Impressions: CONCLUSION: 1. Occlusive thrombus right arm. Chest X-Ray 10/17/17 0000 Signed Impressions: CONCLUSION: No acute cardiopulmonary disease Physical Exam GENERAL: This is a thin, disheveled ill appearing female patient who appears much older than her stated age, in no apparent distress. Appears agitated, restless. SKIN: No rashes, ecchymoses or lesions. Warm and dry. HEAD: Atraumatic. Normocephalic. No temporal or scalp tenderness. EYES: Pupils equal round and reactive. Extraocular motions intact. No scleral icterus. No injection or drainage. ENT: Nose without bleeding or purulent drainage. Throat without erythema, tonsillar hypertrophy or exudate. Uvula midline. Airway patent. MMM. NECK: Trachea midline. No JVD or lymphadenopathy. Supple, nontender, no meningeal signs. CARDIOVASCULAR: Tachycardic without murmurs, gallops, or rubs. RESPIRATORY: Nonlabored. Clear to auscultation. Breath sounds equal bilaterally. No wheezes, rales, or rhonchi. GASTROINTESTINAL: Abdomen soft, non-tender, nondistended. No hepato-splenomegaly , or palpable masses. No guarding. MUSCULOSKELETAL: Extremities without clubbing or cyanosis. No BLE edema. No calf tenderness. RUE mildly edematous and erythematous, tender to palpation. Decreased ROM in RUE. NEUROLOGICAL: Awake and alert. Cranial nerves II through XII grossly intact. Motor and sensory grossly within normal limits. Normal speech. PSYCHIATRIC: Agitated, cooperative with exam PIV with no e/o infection left forearm (Viji Camilo) Assessment & Plan Remarks Severe sepsis RUE DVT -PICC line removed, started on Heparin drip Acute metabolic encephalopathy: sepsis, IV drug use Strep MV endocarditis with septic emboli to distant organs Several subacute strokes left occipital region last admission IVDU, last used crack cocaine 10/16 -UDS + amphetamines, cocaine and cannabinoids Hep C Diarrhea, ongoing AMA risk, psych consulted to assess competency RECS: Continue on IV Ceftriaxone DVT management per primary team Await psychiatry recommendations Follow up on stool studies including C diff Follow up on blood culture results until finalized Follow clinically will likely need to stay in hospital to complete therapy since she is non compliant and has abused her PICC line (Viji Camilo) Remarks The exam, history, and the medical decision-making described in the above note were completed with the assistance of the mid-level provider. I reviewed and agree with the findings presented. I attest that I had a [id number] encounter with the patient on the same day, and personally performed and documented my assessment and findings in the medical record. Much calmer today. But still threatens to leave hospital. Dozing off with hand in a bag of chocolates. Appeared comfortable but when she woke up she said she needs pain meds or she will sign off. Continue Ceftriaxone IV Follow cultures follow clinically. Will follow her prn over the weekend. Please call sooner if any change in condition noted. (Agnes Knowles MD) Viji Camilo Oct 18, 2017 06:41 Agnes Knowles MD Oct 18, 2017 12:49
[2017-10-18] MEDS ORDERED: POTASSIUM CHLORIDE 20 MEQ CONTROLLED RELEASE TAB PO ONE (07:30)
[2017-10-18] MEDS: SODIUM CHLORIDE 0.9% FLUSH 10 ML FLUSH IV FLUSH SCH ×2 (09:00→21:00)
[2017-10-18] MEDS: LORazepam 2 MG/ML VIAL IV PUSH PRN ×2 (09:05→15:07)
[2017-10-18] MEDS: FOLIC ACID 1 MG TAB PO SCH (09:06)
[2017-10-18] MEDS: MULTIVITAMINS/MINERALS THERAPEUTIC TAB PO SCH (09:06)
[2017-10-18] MEDS: THIAMINE HCL 100 MG TAB PO SCH (09:06)
[2017-10-18] MEDS: cefTRIAXone INJ 2,000 MG in SODIUM CHLORIDE 0.9% INJ 100 ML IV SCH (11:21)
--- NOTE | 2017-10-18 12:08 | HHI.FPPN ---
Subjective Remarks No acute events overnight. Patient lying in bed. Mom at bedside. Patient states that her pain level in her right arm is 8 out of 10. She is asking for more pain medication. Her mom states that she is has only been eating candy. She denies fevers, chest pain, shortness of breath, abdominal pain, and nausea and vomiting. (Kimberly Herrera MD R1) Objective Vitals Vital Signs Date Time Temp Pulse Resp B/P (MAP) Pulse Ox O2 Delivery O2 Flow Rate FiO2 10/18/17 09:01 102 10/18/17 09:01 97.6 98 17 114/76 (89) 100 10/18/17 08:00 100 10/18/17 07:00 103 10/18/17 06:43 97 10/18/17 05:50 16 10/18/17 05:00 102 10/18/17 04:30 97.8 104 18 119/80 (93) 99 10/18/17 04:01 109 10/18/17 03:00 106 10/18/17 02:00 108 10/18/17 01:08 105 10/18/17 00:05 108 10/17/17 23:30 98.3 110 20 126/79 (95) 100 10/17/17 23:00 112 10/17/17 22:00 102 10/17/17 21:00 100 10/17/17 20:48 99.3 98 16 149/92 (111) 99 10/17/17 20:01 104 10/17/17 19:00 104 10/17/17 18:00 102 10/17/17 17:00 102 10/17/17 16:00 112 10/17/17 15:00 99.1 121 20 151/92 (111) 100 10/17/17 15:00 100 10/17/17 14:00 100 10/17/17 13:00 92 I/O 10/17/17 10/17/17 10/17/17 10/18/17 10/18/17 10/18/17 06:59 14:59 22:59 06:59 14:59 22:59 Intake Total 240 ml 580 ml Output Total 300 ml Balance -60 ml 580 ml Intake Oral 240 ml 580 ml Output Urine Total 300 ml # Voids 1 # Bowel Movements 1 (Kimberly Herrera MD R1) Result Diagram: 10/18/17 0258 10/18/17 0258 Imaging GENERAL: Thin, disheveled, female, looks older than her stated age, agitated and anxious, asking for pain meds SKIN: PICC line removed, area around PICC line no redness, no swelling or warmth noted CARDIOVASCULAR: Regular rate and rhythm without murmurs, gallops, or rubs. RESPIRATORY: Clear to auscultation. Breath sounds equal bilaterally. No wheezes , rales, or rhonchi. GASTROINTESTINAL: Abdomen soft, non-tender, nondistended. No hepato-splenomegaly , or palpable masses. No guarding. MUSCULOSKELETAL: Extremities without clubbing, cyanosis, or edema. No joint tenderness, effusion, or edema noted. No calf tenderness. Negative Homans sign bilaterally. NEUROLOGICAL: Awake and alert. Oriented x 3 (Kimberly Herrera MD R1) A/P Assessment and Plan 41-year-old female with history of IV drug use and recent diagnosis of endocarditis with PICC line admitted for upper extremity DVT. Patient meets sepsis criteria. Discharge Planning Unclear timetable, pending clinical improvement Anticipate patient being here for 3-4 weeks for IV abx treatment of endocarditis (Kimberly Herrera MD R1) Attending Attestation Patient examined independently and case discussed with resident physicians I have read the above note and agree with the assessment/plan as discussed with me I was involved in all medical decision making for this patient Andres Martinez MD (Andres Martinez MD) Problem List: (1) Sepsis ICD Codes: A41.9 - Sepsis, unspecified organism Status: Acute Plan: Patient meets sepsis criteria elevated white count of 13.5 and tachycardic at 118 on admission, with known source. See plan below. (2) Deep venous thrombosis of right upper extremity ICD Codes: I82.621 - Acute embolism and thrombosis of deep veins of right upper extremity Status: Acute Plan: Patient presenting with upper extremity pain. Upper extremity ultrasound positive for occlusive thrombus in right arm. PICC line remove Discontinued Heparin drip (10/17-10/18) Start Xarelto 15 mg BID for anticoagulation (3) Endocarditis ICD Codes: I38 - Endocarditis, valve unspecified Plan: Patient with known strep endocarditis with septic emboli to distant organs. Patient has septic multiple infarcts to spleen, septic infarct of right kidney, subacute brain infarct. Patient patient has been receiving IV antibiotics at the infusion clinic. PICC line removed. Blood cultures no growth in 1 day Continue Rocephin 2 g IV every 24h Consult infectious disease, recommendations appreciated. Patient known to Dr. Knowles. -continue management as above, follow cultures (4) Diarrhea ICD Codes: R19.7 - Diarrhea, unspecified Plan: Patient reports 1 week history of watery, nonbloody diarrhea Patient currently on antibiotic therapy for endocarditis. C. difficile, Giardia, enteric path, stool studies, and Hemoccult pending (5) IVDU (intravenous drug user) ICD Codes: F19.90 - Other psychoactive substance use, unspecified, uncomplicated Plan: Patient admits to IV Dilaudid and cocaine use UDS positive for amphetamines, cocaine, cannabinoids Patient positive for hep C 09/23/17 HIV nonreactive on 09/23/17 Pain control: Roxicodone 5 mg every 4h for pain 3-5, Roxicodone 10mg every 4h for pain 6-10, morphine for breakthrough pain (6) Hepatitis C ICD Codes: B19.20 - Unspecified viral hepatitis C without hepatic coma Plan: Patient positive for hep C 09/23/17 Will need outpatient treatment (7) Hypokalemia ICD Codes: E87.6 - Hypokalemia Status: Acute Plan: Potassium 3.1 on admission Improved to 3.4 today Replace orally continue to monitor (8) Hyponatremia ICD Codes: E87.1 - Hypo-osmolality and hyponatremia Status: Resolved Plan: Slight hyponatremia with sodium of 134 on admission Resolved Continue to monitor (9) Withdrawal syndrome ICD Codes: F19.939 - Other psychoactive substance use, unspecified with withdrawal, unspecified Plan: Patient placed on CIWA protocol Patient was seen and evaluated by psychiatry during hospital admission on . Patient was considered delirious due to polysubstance abuse. Patient received Haldol 1 mg twice daily to help with psychosis and behavioral control. Will continued Haldol 1mg BID Psychiatry consulted, appreciate recommendations. (10) Nutrition, metabolism, and development symptoms ICD Codes: R63.8 - Other symptoms and signs concerning food and fluid intake Plan: Diet: Regular basic Fluids: Maintenance rate at 85mls/hr NS Vitals every 4, monitor I's and O's DVTppx: heparin drip, SCDs Case management consulted Patient seen and examined with Ayla Harkins, MS4. (Kimberly Herrera MD R1) Kimberly Herrera MD R1 Oct 18, 2017 12:08 Andres Martinez MD Oct 18, 2017 17:04
--- NOTE | 2017-10-18 12:43 | PD.PN.STU ---
Subjective Remarks Patient is found lying in bed. No acute events overnight. Per nursing staff, she has required Ativan for agitation since admission. She is less agitated this AM with her mother at bedside. She still complains of RUE pain. Pain level is 8/10. She is requesting for stronger pain medications. Per mother, she has not been eating anything but candy. She denies any fever, chills, chest pain, shortness of breath, nausea or vomiting. Objective Vitals Vital Signs Date Time Temp Pulse Resp B/P (MAP) Pulse Ox O2 Delivery O2 Flow Rate FiO2 10/18/17 11:17 98.0 97 17 114/76 (89) 100 10/18/17 09:01 102 10/18/17 09:01 97.6 98 17 114/76 (89) 100 10/18/17 08:00 100 10/18/17 07:00 103 10/18/17 06:43 97 10/18/17 05:50 16 10/18/17 05:00 102 10/18/17 04:30 97.8 104 18 119/80 (93) 99 10/18/17 04:01 109 10/18/17 03:00 106 10/18/17 02:00 108 10/18/17 01:08 105 10/18/17 00:05 108 10/17/17 23:30 98.3 110 20 126/79 (95) 100 10/17/17 23:00 112 10/17/17 22:00 102 10/17/17 21:00 100 10/17/17 20:48 99.3 98 16 149/92 (111) 99 10/17/17 20:01 104 10/17/17 19:00 104 10/17/17 18:00 102 10/17/17 17:00 102 10/17/17 16:00 112 10/17/17 15:00 99.1 121 20 151/92 (111) 100 10/17/17 15:00 100 10/17/17 14:00 100 10/17/17 13:00 92 I/O 10/17/17 10/17/17 10/17/17 10/18/17 10/18/17 10/18/17 07:00 15:00 23:00 07:00 15:00 23:00 Intake Total 240 ml 580 ml Output Total 300 ml Balance -60 ml 580 ml Intake Oral 240 ml 580 ml Output Urine Total 300 ml # Voids 1 # Bowel Movements 1 Result Diagram: 10/18/17 0258 10/18/17 0258 Objective Remarks GENERAL: Well-developed, under-nourished female that appears older than stated age. She is thin and disheveled. Tearful at times and requesting pain medication. SKIN: PICC line has been removed, gauze covering site. Area is mildly erythematous. No swelling, warmth, or drainage. HEAD: Atraumatic. Normocephalic. NECK: Trachea midline. No JVD or lymphadenopathy. Supple, nontender, no meningeal signs. CARDIOVASCULAR: Regular rate and rhythm without murmurs, gallops, or rubs. RESPIRATORY: Clear to auscultation. Breath sounds equal bilaterally. No wheezes , rales, or rhonchi. GASTROINTESTINAL: Abdomen soft, non-tender, nondistended. No hepato-splenomegaly , or palpable masses. No guarding. MUSCULOSKELETAL: Extremities without clubbing, cyanosis, or edema. NEUROLOGICAL: Awake and alert. Oriented x3. Cranial nerves II through XII intact. Motor and sensory grossly within normal limits. Five out of 5 muscle strength in all muscle groups. Normal speech. A/P Assessment and Plan 41 y/o female with history of IVDA and bacterial endocarditis with PICC line admitted for RUE DVT. Code Status Full code Discussed Condition With Dr. Gonzalez, Dr. Martinez, and Dr Herrera Problem List: (1) Sepsis ICD Codes: A41.9 - Sepsis, unspecified organism Status: Acute Plan: Upon admission, patient met sepsis criteria with elevated white count of 13.5 and tachycardic at 118, with known source. Improvement in white count at 8.3. Pulse has remained elevated around 100-100. See plan below. (2) Deep venous thrombosis of right upper extremity ICD Codes: I82.621 - Acute embolism and thrombosis of deep veins of right upper extremity Status: Acute Plan: Patient presenting with upper extremity pain. Upper extremity ultrasound positive for occlusive thrombus in right arm. PICC line was removed and heparin drip started. Will transition to Xarelto 15mg PO twice daily for 20 days. Patient will most likely need oral anticoagulation coagulation upon discharge, possibly for 3 months. (3) Endocarditis ICD Codes: I38 - Endocarditis, valve unspecified Plan: Patient with known strep endocarditis with septic emboli to distant organs. Patient has septic multiple infarcts to spleen, septic infarct of right kidney, subacute brain infarct. Patient patient has been receiving IV antibiotics at the infusion clinic. PICC line removed. Blood cultures showed no growth x 1 day. Continue Rocephin 2 g IV every 24h Consult infectious disease, recommendations appreciated. Patient known to Dr. Knowles. (4) Diarrhea ICD Codes: R19.7 - Diarrhea, unspecified Plan: Patient reports 1 week history of watery, nonbloody diarrhea Patient currently on antibiotic therapy for endocarditis. C. difficile, Giardia, enteric path, stool studies, and Hemoccult pending (5) IVDU (intravenous drug user) ICD Codes: F19.90 - Other psychoactive substance use, unspecified, uncomplicated Plan: Patient admits to IV Dilaudid and cocaine use UDS positive for amphetamines, cocaine, cannabinoids Patient positive for hep C 09/23/17 HIV nonreactive on 09/23/17 Pain control: Roxicodone 5 mg every 4h for pain 3-5, Roxicodone 10mg every 4h for pain 6-10, morphine for breakthrough pain (6) Hepatitis C ICD Codes: B19.20 - Unspecified viral hepatitis C without hepatic coma Plan: Patient positive for hep C 09/23/17 Will need outpatient treatment (7) Hypokalemia ICD Codes: E87.6 - Hypokalemia Status: Acute Plan: Potassium 3.1 on admission Replace orally continue to monitor (8) Hyponatremia ICD Codes: E87.1 - Hypo-osmolality and hyponatremia Status: Acute Plan: Slight hyponatremia with sodium of 134 on admission Continue to monitor (9) Nutrition, metabolism, and development symptoms ICD Codes: R63.8 - Other symptoms and signs concerning food and fluid intake Plan: Diet: Regular basic Fluids: Maintenance rate at 85mls/hr NS Vitals every 4, monitor I's and O's DVTppx: heparin drip, SCDs Case management consulted Note completed by Ayla Harkins, MS4 Ayla Harkins M3 Oct 18, 2017 12:43 Andres Martinez MD Oct 18, 2017 16:53
[2017-10-18] MEDS: RIVAROXABAN 15 MG TAB PO SCH ×2 (13:20→21:10)
[2017-10-18] MEDS: NICOTINE 14 MG/24 HR PATCH T-DERMAL SCH (16:41)
[2017-10-18] MEDS: REMOVE OLD PATCH T-DERMAL SCH (21:00)
[2017-10-19] VITALS (8 sets, daily range): BP systolic 112–135; BP diastolic 69–92; PULSE 90–107; RESP 18–20; TEMP 97.4–98.6; O2SAT 97–100
[2017-10-19] MEDS: SODIUM CHLOR 0.9% 1000 ML INJ 1,000 ML IV SCH ×3 (01:13→23:33)
[2017-10-19] MEDS: MORPHINE SULFATE 4 MG/ML INJ IV PUSH PRN ×3 (06:27→21:11)
[2017-10-19] MEDS: HALOPERIDOL 1 MG TAB PO SCH ×2 (06:39→18:26)
[2017-10-19 07:08] LABS: HEMATOCRIT 27.5 % (35.0-46.0); HEMOGLOBIN 8.8 GM/DL (11.6-15.3); MEAN CELL VOLUME 71.5 FL (80.0-100.0); MEAN CORPUSCULAR HEMOGLOBIN 22.9 PG (27.0-34.0); MEAN PLATELET VOLUME 7.6 FL (7.0-11.0); PLATELET COUNT 336 TH/MM3 (150-450); RED BLOOD COUNT 3.84 MIL/MM3 (4.00-5.30); RED CELL DISTRIBUTION WIDTH 15.4 % (11.6-17.2); WHITE BLOOD COUNT 7.3 TH/MM3 (4.0-11.0)
[2017-10-19 07:35] LABS: BICARBONATE 28.3 MEQ/L (21.0-32.0); CALCIUM 8.5 MG/DL (8.5-10.1); CREATININE 0.67 MG/DL (0.50-1.00)
[2017-10-19] MEDS: SODIUM CHLORIDE 0.9% FLUSH 10 ML FLUSH IV FLUSH SCH ×2 (09:00→21:00)
[2017-10-19] MEDS: THIAMINE HCL 100 MG TAB PO SCH (09:47)
[2017-10-19] MEDS: RIVAROXABAN 15 MG TAB PO SCH ×2 (09:47→21:00)
[2017-10-19] MEDS: MULTIVITAMINS/MINERALS THERAPEUTIC TAB PO SCH (09:47)
[2017-10-19] MEDS: FOLIC ACID 1 MG TAB PO SCH (09:47)
[2017-10-19] MEDS: NICOTINE 14 MG/24 HR PATCH T-DERMAL SCH (09:47)
--- NOTE | 2017-10-19 11:22 | PD.PN.STU ---
Subjective Remarks Patient found sitting up in bed having breakfast. She reports no problems overnight. Her pain level in her right arm is a 7 out of 10. Denies chest pain, abdominal pain, nausea, vomiting, diarrhea, constipation, or shortness of breath. Objective Vitals Vital Signs Date Time Temp Pulse Resp B/P (MAP) Pulse Ox O2 Delivery O2 Flow Rate FiO2 10/19/17 08:00 93 10/19/17 04:00 98.5 99 20 112/74 (87) 97 10/19/17 03:31 98 10/19/17 01:00 97 10/19/17 00:00 98.6 90 19 135/92 (106) 98 10/19/17 00:00 107 10/18/17 20:00 98.6 105 21 141/96 (111) 98 10/18/17 16:00 109 10/18/17 15:08 98.1 100 17 130/91 (104) 100 10/18/17 15:01 107 10/18/17 14:00 109 10/18/17 13:00 102 10/18/17 12:01 96 I/O 10/18/17 10/18/17 10/18/17 10/19/17 10/19/17 10/19/17 06:59 14:59 22:59 06:59 14:59 22:59 Intake Total 580 ml Balance 580 ml Intake Oral 580 ml # Voids 1 # Bowel Movements 1 Result Diagram: 10/19/17 0640 10/19/17 0640 Objective Remarks GENERAL: Well-developed, under-nourished female that appears older than stated age. She is thin and disheveled. Very tired, falls asleep during physical examination. SKIN: PICC line has been removed, gauze covering site. Area is mildly erythematous. No swelling, warmth, or drainage. HEAD: Atraumatic. Normocephalic. NECK: Trachea midline. No JVD or lymphadenopathy. Supple, nontender, no meningeal signs. CARDIOVASCULAR: Regular rate and rhythm without murmurs, gallops, or rubs. RESPIRATORY: Clear to auscultation. Breath sounds equal bilaterally. No wheezes , rales, or rhonchi. GASTROINTESTINAL: Abdomen soft, non-tender, nondistended. No hepato-splenomegaly , or palpable masses. No guarding. MUSCULOSKELETAL: Extremities without clubbing, cyanosis, or edema. NEUROLOGICAL: Oriented x3. Normal speech. A/P Assessment and Plan 41 y/o female with history of IVDA and bacterial endocarditis with PICC line admitted for RUE DVT. Code Status Full code Discussed Condition With Dr. Gonzalez, Dr. Martinez, and Dr Herrera Problem List: (1) Sepsis ICD Codes: A41.9 - Sepsis, unspecified organism Status: Acute Plan: Upon admission, patient met sepsis criteria with elevated white count of 13.5 and tachycardic at 118, with known source. Improvement in white count at 7.3. Pulse has remained elevated around 100-110. See plan below. (2) Deep venous thrombosis of right upper extremity ICD Codes: I82.621 - Acute embolism and thrombosis of deep veins of right upper extremity Status: Acute Plan: Patient presenting with upper extremity pain. Upper extremity ultrasound positive for occlusive thrombus in right arm. PICC line was removed and heparin drip started. Continue Xarelto 15mg PO twice daily. Patient will most likely need oral anticoagulation coagulation upon discharge, possibly for 3 months. (3) Endocarditis ICD Codes: I38 - Endocarditis, valve unspecified Plan: Patient with known strep endocarditis with septic emboli to distant organs. Patient has septic multiple infarcts to spleen, septic infarct of right kidney, subacute brain infarct. Patient patient has been receiving IV antibiotics at the infusion clinic. PICC line removed. Blood cultures showed no growth x 2 day. Continue Rocephin 2 g IV every 24h per ID recommendations. Patient known to Dr. Knowles. (4) Diarrhea ICD Codes: R19.7 - Diarrhea, unspecified Plan: Patient reports 1 week history of watery, nonbloody diarrhea Patient currently on antibiotic therapy for endocarditis. Hemmocult is negative. C. difficile, Giardia, enteric path, stool studies, pending (5) IVDU (intravenous drug user) ICD Codes: F19.90 - Other psychoactive substance use, unspecified, uncomplicated Plan: Patient admits to IV Dilaudid and cocaine use UDS positive for amphetamines, cocaine, cannabinoids Patient positive for hep C 09/23/17 HIV nonreactive on 09/23/17 Pain control: Roxicodone 5 mg every 4h for pain 3-5, Roxicodone 10mg every 4h for pain 6-10, morphine for breakthrough pain (6) Hepatitis C ICD Codes: B19.20 - Unspecified viral hepatitis C without hepatic coma Plan: Patient positive for hep C 09/23/17 Will need outpatient treatment (7) Hypokalemia ICD Codes: E87.6 - Hypokalemia Status: Acute Plan: Potassium 3.1 on admission Replace orally continue to monitor (8) Hyponatremia ICD Codes: E87.1 - Hypo-osmolality and hyponatremia Status: Acute Plan: Slight hyponatremia with sodium of 134 on admission Continue to monitor (9) Nutrition, metabolism, and development symptoms ICD Codes: R63.8 - Other symptoms and signs concerning food and fluid intake Plan: Diet: Regular basic Fluids: Maintenance rate at 85mls/hr NS Vitals every 4, monitor I's and O's DVTppx: heparin drip, SCDs Case management consulted Note completed by Ayla Harkins, MS4 Ayla Harkins M3 Oct 19, 2017 11:22 Andres Martinez MD Oct 19, 2017 17:59
[2017-10-19] MEDS: cefTRIAXone INJ 2,000 MG in SODIUM CHLORIDE 0.9% INJ 100 ML IV SCH (12:15)
--- NOTE | 2017-10-19 13:12 | HHI.FPPN ---
Subjective Remarks Patient was sitting by the side of her bed, attempting to eat breakfast but falling asleep. She kept mentioning that she needed morphine for the pain in her arm because that is what really helps her. She states that on the previous days she was screaming and yelling because of the pain in her arm but she is okay now. (Heather Gonzalez MD R2) Objective Vitals Vital Signs Date Time Temp Pulse Resp B/P (MAP) Pulse Ox O2 Delivery O2 Flow Rate FiO2 10/19/17 08:00 93 10/19/17 04:00 98.5 99 20 112/74 (87) 97 10/19/17 03:31 98 10/19/17 01:00 97 10/19/17 00:00 98.6 90 19 135/92 (106) 98 10/19/17 00:00 107 10/18/17 20:00 98.6 105 21 141/96 (111) 98 10/18/17 16:00 109 10/18/17 15:08 98.1 100 17 130/91 (104) 100 10/18/17 15:01 107 10/18/17 14:00 109 I/O 10/18/17 10/18/17 10/18/17 10/19/17 10/19/17 10/19/17 07:00 15:00 23:00 07:00 15:00 23:00 Intake Total 580 ml Balance 580 ml Intake Oral 580 ml # Voids 1 # Bowel Movements 1 (Heather Gonzalez MD R2) Result Diagram: 10/19/17 0640 10/19/17 0640 Imaging Last Impressions Upper Extremity Ultrasound 10/17/17 0000 Signed Impressions: CONCLUSION: 1. Occlusive thrombus right arm. Chest X-Ray 10/17/17 0000 Signed Impressions: CONCLUSION: No acute cardiopulmonary disease Objective Remarks GENERAL: Thin, disheveled, female, looks older than her stated age, sleepy SKIN: No skin redness or overt swelling noted on right arm, thrombus palpated in the area of her removed PICC line CARDIOVASCULAR: Regular rate and rhythm without murmurs, gallops, or rubs. RESPIRATORY: Clear to auscultation. Breath sounds equal bilaterally. No wheezes , rales, or rhonchi. GASTROINTESTINAL: Abdomen soft, non-tender, nondistended. No hepato-splenomegaly , or palpable masses. No guarding. MUSCULOSKELETAL: Extremities without clubbing, cyanosis, or edema. No joint tenderness, effusion, or edema noted. No calf tenderness. NEUROLOGICAL: Awake and alert. Oriented x 3 (Heather Gonzalez MD R2) A/P Assessment and Plan 41-year-old female with history of IV drug use and recent diagnosis of endocarditis with PICC line admitted for upper extremity DVT. Discharge Planning Anticipate patient being here for 3-4 weeks for IV abx treatment of endocarditis (Heather Gonzalez MD R2) Attending Attestation Pt. examined independently and case discussed with resident physicians. I have read the above note and agree with the assessment and plan as discussed with me. I was involved in all medical decision making for this patient. Andres Martinez MD (Anrdes Martinez MD) Problem List: (1) Sepsis ICD Codes: A41.9 - Sepsis, unspecified organism Status: Acute Plan: Patient meets sepsis criteria elevated white count of 13.5 and tachycardic at 118 on admission, with known source. See plan below. (2) Deep venous thrombosis of right upper extremity ICD Codes: I82.621 - Acute embolism and thrombosis of deep veins of right upper extremity Status: Acute Plan: Patient presenting with upper extremity pain. Upper extremity ultrasound positive for occlusive thrombus in right arm. PICC line removed Continue Xarelto 15 mg BID for anticoagulation (3) Endocarditis ICD Codes: I38 - Endocarditis, valve unspecified Plan: Patient with known strep endocarditis with septic emboli to distant organs. Patient had septic multiple infarcts to spleen, septic infarct of right kidney, subacute brain infarct on previous admission. Patient patient had been receiving IV antibiotics at the infusion clinic. PICC line removed. Blood cultures no growth in 2 days Continue Rocephin 2 g IV every 24h Consult infectious disease, recommendations appreciated. Patient known to Dr. Knowles. -continue management as above, follow cultures (4) Diarrhea ICD Codes: R19.7 - Diarrhea, unspecified Plan: Patient reports 1 week history of watery, nonbloody diarrhea Patient currently on antibiotic therapy for endocarditis. C. difficile indeterminate, will repeat Hemoccult negative Other stool studies still pending (5) IVDU (intravenous drug user) ICD Codes: F19.90 - Other psychoactive substance use, unspecified, uncomplicated Plan: Patient admits to IV Dilaudid and cocaine use UDS positive for amphetamines, cocaine, cannabinoids Patient positive for hep C 09/23/17 HIV nonreactive on 09/23/17 Pain control: Roxicodone 5 mg every 4h for pain 3-5, Roxicodone 10mg every 4h for pain 6-10, morphine for breakthrough pain * Transition off morphine IV tomorrow (6) Hepatitis C ICD Codes: B19.20 - Unspecified viral hepatitis C without hepatic coma Plan: Patient positive for hep C 09/23/17 Will need outpatient treatment (7) Hypokalemia ICD Codes: E87.6 - Hypokalemia Status: Acute Plan: Potassium 3.1 on admission Improved to 4.1 today Replace orally Continue to monitor (8) Withdrawal syndrome ICD Codes: F19.939 - Other psychoactive substance use, unspecified with withdrawal, unspecified Plan: Patient placed on CIWA protocol Patient was seen and evaluated by psychiatry during hospital admission on . Patient was considered delirious due to polysubstance abuse. Patient received Haldol 1 mg twice daily to help with psychosis and behavioral control. Will continued Haldol 1mg BID Psychiatry consulted, appreciate recommendations. (9) Nutrition, metabolism, and development symptoms ICD Codes: R63.8 - Other symptoms and signs concerning food and fluid intake Plan: Diet: Regular basic Fluids: Maintenance rate at 85mls/hr NS Vitals every 4, monitor I's and O's DVTppx: Rodger Wilkinson Case management consulted (Heather Gonzalez MD R2) Heather Gonzalez MD R2 Oct 19, 2017 13:12 Andres Martinez MD Oct 19, 2017 18:04
[2017-10-19] MEDS: REMOVE OLD PATCH T-DERMAL SCH (21:00)
[2017-10-20] VITALS: BP 129/86; PULSE 96; PULSE 98; RESP 20; TEMP 98.6; O2SAT 97
[2017-10-20] MEDS: MORPHINE SULFATE 4 MG/ML INJ IV PUSH PRN ×4 (01:32→20:50)
[2017-10-20 04:00] VITALS: BP 123/84; PULSE 106; PULSE 93; RESP 20; TEMP 100; O2SAT 97
[2017-10-20] MEDS: HALOPERIDOL 1 MG TAB PO SCH ×2 (05:44→17:49)
[2017-10-20] MEDS: SODIUM CHLOR 0.9% 1000 ML INJ 1,000 ML IV SCH (05:46)
[2017-10-20 07:35] LABS: HEMATOCRIT 29.3 % (35.0-46.0); HEMOGLOBIN 9.4 GM/DL (11.6-15.3); MEAN CELL VOLUME 73.3 FL (80.0-100.0); MEAN CORPUSCULAR HEMOGLOBIN 23.6 PG (27.0-34.0); MEAN CORPUSCULAR HGB CONC 32.2 % (32.0-36.0); MEAN PLATELET VOLUME 7.7 FL (7.0-11.0); PLATELET COUNT 350 TH/MM3 (150-450); RED CELL DISTRIBUTION WIDTH 15.6 % (11.6-17.2); WHITE BLOOD COUNT 5.1 TH/MM3 (4.0-11.0)
[2017-10-20 07:55] LABS: BICARBONATE 27.4 MEQ/L (21.0-32.0); CALCIUM 8.6 MG/DL (8.5-10.1); CREATININE 0.72 MG/DL (0.50-1.00)
[2017-10-20 08:00] VITALS: BP 128/89; PULSE 85; PULSE 91; RESP 20; TEMP 98.3; O2SAT 99
--- NOTE | 2017-10-20 08:43 | EKG ---
Date Performed: 10/18/2017 Time Performed: 16:05:00 PTAGE: 41 years EKG: Sinus tachycardia There are subtle 1/2-[address] elevation in the precordial leads and in deepali ds II. These changes may be due to early repolarization, cannot exclude pericarditis. Since PREVIOUS TRACING , the slight ST elevation is new. PREVIOUS TRACIN09/21/2017 19.37 DOCTOR: Alexy Seay Interpretating Date/Time 10/20/2017 08:41:12
[2017-10-20] MEDS: THIAMINE HCL 100 MG TAB PO SCH (09:28)
[2017-10-20] MEDS: RIVAROXABAN 15 MG TAB PO SCH ×2 (09:28→20:50)
[2017-10-20] MEDS: NICOTINE 14 MG/24 HR PATCH T-DERMAL SCH (09:30)
[2017-10-20] MEDS: SODIUM CHLORIDE 0.9% FLUSH 10 ML FLUSH IV FLUSH SCH ×2 (09:35→20:49)
[2017-10-20] MEDS: MULTIVITAMINS/MINERALS THERAPEUTIC TAB PO SCH (09:35)
[2017-10-20] MEDS: FOLIC ACID 1 MG TAB PO SCH (09:35)
--- NOTE | 2017-10-20 09:39 | HHI.FPPN ---
Subjective Remarks No acute events overnight. Patient resting comfortably in bed. She appears pleasant this morning. She is less agitated. Patient is requesting ensure with her meals. She is also requesting medication for yeast infection. She reports that she has been having vaginal itching. She was recently treated for yeast infection 2 weeks ago. She reports that she still has mild right arm pain. 2 BM recorded yesterday. She denies chest pain, shortness of breath, nausea vomiting, and abdominal pain. (Kimberly Herrera MD R1) Objective Vitals Vital Signs Date Time Temp Pulse Resp B/P (MAP) Pulse Ox O2 Delivery O2 Flow Rate FiO2 10/20/17 04:00 106 10/20/17 04:00 Room Air 10/20/17 04:00 100.0 93 20 123/84 (97) 97 10/20/17 00:00 96 10/20/17 00:00 98.6 98 20 129/86 (100) 97 10/19/17 20:00 98.3 104 18 127/84 (98) 98 10/19/17 20:00 106 10/19/17 16:00 93 10/19/17 16:00 97.8 90 20 127/85 (99) 99 10/19/17 12:00 97.5 99 20 130/84 (99) 99 10/19/17 12:00 98 I/O 10/19/17 10/19/17 10/19/17 10/20/17 10/20/17 10/20/17 07:00 15:00 23:00 07:00 15:00 23:00 Intake Total 600 ml 440 ml Balance 600 ml 440 ml Intake Oral 600 ml 440 ml # Voids 3 2 # Bowel Movements 2 0 (Kimberly Herrera MD R1) Result Diagram: 10/20/17 0540 10/20/17 0540 Objective Remarks GENERAL: Thin, disheveled, female, looks older than her stated age, more alert this morning SKIN: No skin redness or overt swelling noted on right arm, thrombus palpated in the area of her removed PICC line CARDIOVASCULAR: Regular rate and rhythm without murmurs, gallops, or rubs. RESPIRATORY: Clear to auscultation. Breath sounds equal bilaterally. No wheezes , rales, or rhonchi. GASTROINTESTINAL: Abdomen soft, non-tender, nondistended. No hepato-splenomegaly , or palpable masses. No guarding. MUSCULOSKELETAL: Extremities without clubbing, cyanosis, or edema. No joint tenderness, effusion, or edema noted. No calf tenderness. NEUROLOGICAL: Awake and alert. Oriented x 3 (Kimberly Herrera MD R1) A/P Assessment and Plan 41-year-old female with history of IV drug use and recent diagnosis of endocarditis with PICC line admitted for upper extremity DVT. Discharge Planning Anticipate patient being here for 3-4 weeks for IV abx treatment of endocarditis (Kimberly Herrera MD R1) Attending Attestation Patient examined independently and case discussed with resident physician I have read the above note and agree with the assessment/plan as discussed with me. I was involved in all medical decision making for this patient Andres Martinez MD (Andres Martinez MD) Problem List: (1) Sepsis ICD Codes: A41.9 - Sepsis, unspecified organism Status: Acute Plan: Patient meets sepsis criteria elevated white count of 13.5 and tachycardic at 118 on admission, with known source. See plan below. (2) Deep venous thrombosis of right upper extremity ICD Codes: I82.621 - Acute embolism and thrombosis of deep veins of right upper extremity Status: Acute Plan: Patient presenting with upper extremity pain. Upper extremity ultrasound positive for occlusive thrombus in right arm. PICC line removed Continue Xarelto 15 mg BID for anticoagulation Pain control: Roxicodone 5mg PO q4 PRN pain 3-5 Roxicodone 10mg PO q4 PRN pain 6-10 Morphine IV-decrease today from 4mg to 2mg, can discontinue tomorrow for breakthrough pain (3) Endocarditis ICD Codes: I38 - Endocarditis, valve unspecified Plan: Patient with known strep endocarditis with septic emboli to distant organs. Patient had septic multiple infarcts to spleen, septic infarct of right kidney, subacute brain infarct on previous admission. Patient patient had been receiving IV antibiotics at the infusion clinic. PICC line removed. Blood cultures NGTD Continue Rocephin 2 g IV every 24h Consult infectious disease, recommendations appreciated. Patient known to Dr. Knowles. -continue management as above, follow cultures (4) Diarrhea ICD Codes: R19.7 - Diarrhea, unspecified Plan: Patient reports 1 week history of watery, nonbloody diarrhea Patient currently on antibiotic therapy for endocarditis. C. difficile indeterminate, repeat C.diff ordered Hemoccult negative Other stool studies still pending (5) IVDU (intravenous drug user) ICD Codes: F19.90 - Other psychoactive substance use, unspecified, uncomplicated Plan: Patient admits to IV Dilaudid and cocaine use UDS positive for amphetamines, cocaine, cannabinoids Patient positive for hep C 09/23/17 HIV nonreactive on 09/23/17 Pain control: Roxicodone 5 mg every 4h for pain 3-5, Roxicodone 10mg every 4h for pain 6-10, morphine for breakthrough pain * Transition off morphine IV tomorrow (6) Hepatitis C ICD Codes: B19.20 - Unspecified viral hepatitis C without hepatic coma Plan: Patient positive for hep C 09/23/17 Will need outpatient treatment (7) Hypokalemia ICD Codes: E87.6 - Hypokalemia Status: Acute Plan: Potassium 3.1 on admission Improved to 4.6 today Replace orally Continue to monitor (8) Withdrawal syndrome ICD Codes: F19.939 - Other psychoactive substance use, unspecified with withdrawal, unspecified Plan: Patient placed on CIWA protocol Patient was seen and evaluated by psychiatry during hospital admission on . Patient was considered delirious due to polysubstance abuse. Patient received Haldol 1 mg twice daily to help with psychosis and behavioral control. Will continued Haldol 1mg BID Psychiatry consulted, appreciate recommendations. (9) Vaginal yeast infection ICD Codes: B37.3 - Candidiasis of vulva and vagina Plan: Patient reports that she continues to have vaginal itching. She reports that she was treated recently treated for yeast infection 2 weeks ago. Miconazole vaginal cream N/A in pharmacy, start Clotrimazole 1% vaginal cream for 7 days (10) Nutrition, metabolism, and development symptoms ICD Codes: R63.8 - Other symptoms and signs concerning food and fluid intake Plan: Diet: Regular basic w/ ensure Fluids: PO hydration Vitals every 4, monitor I's and O's DVTppx: Rodger Wilkinson Case management consulted (Kimberly Herrera MD R1) Kimberly Herrera MD R1 Oct 20, 2017 09:38 Andres Martinez MD Oct 20, 2017 11:44
[2017-10-20] MEDS: cefTRIAXone INJ 2,000 MG in SODIUM CHLORIDE 0.9% INJ 100 ML IV SCH (11:30)
[2017-10-20 12:00] VITALS: BP 127/84; PULSE 100; PULSE 96; RESP 20; TEMP 97.9; O2SAT 99
--- NOTE | 2017-10-20 13:36 | PD.PSY.CON ---
Provisional Diagnosis Admission Date October 17, 2017 at 10:14 [place]. Adjustment disorder with mixed disturbances of emotion and conduct, polysubstance abuse History of Present Illness Service Psychiatry Consult Requested By Attending MD Reason for Consult Assessment Primary Care Physician No Primary Care Physician HPI Patient is a 41-year-old white female admitted here for medical complications secondary to her multiple drug abuse including intravenous Dilaudid and cocaine use with her PEG tube. This patient is already being treated with intravenous antibiotics for prior misadventures. Patient was hospitalized here 5 10/04 through 10/02/17 visit [id number] at that time under a Zuñiga act. Which was lifted patient seen in consultation by me on 10/02 to follow up with Dr. Pino. She was discharged. She is now on laying quietly in her bed RN present throughout session patient did not recognize me from prior visit she is alert oriented at the present time. She acknowledges her addictions acknowledges his fear of relapse in her ability to maintain sobriety during the length of stay necessary to treat her problems. Though she is aware of the sequelae. She does want to get better at this time. She complains of continued anxiety and also of some significant insomnia. There is also stress of her being homeless and having no insurance at this time are funding. We did discuss medications. I feel a small dose of Seroquel daily and at at bedtime may help calm the anxiety of the insomnia and some of the vigilance and irritability. We will offer 25 mg 8 AM and 2 PM and 50 mg at at bedtime would be judicious with the use of benzodiazepines or opiates. At this time patient does not meet criteria for a Zuñiga act for inpatient psychiatric hospitalization. Thanks for the consult will continue to follow on a as needed basis Review of Systems Constitutional: DENIES: Diaphoretic episodes, Fatigue, Fever, Weight gain, Weight loss, Chills, Dizziness, Change in appetite, Night Sweats Endocrine: DENIES: Abnorml menstrual pattern, Heat/cold intolerance, Polydipsia , Polyuria, Polyphagia Eyes: DENIES: Blurred vision, Diplopia, Eye inflammation, Eye pain, Vision loss , Photosensitivity, Double Vision Ears, nose, mouth, throat: DENIES: Tinnitus, Hearing loss, Vertigo, Nasal discharge, Oral lesions, Throat pain, Hoarseness, Ear Pain, Running Nose, Epistaxis, Sinus Pain, Toothache, Odynophagia Respiratory: DENIES: Apneas, Cough, Snoring, Wheezing, Hemoptysis, Sputum production, Shortness of breath Cardiovascular: DENIES: Chest pain, Palpitations, Syncope, Dyspnea on Exertion , PND, Lower Extremity Edema, Orthopnea, Claudication Gastrointestinal: DENIES: Abdominal pain, Black stools, Bloody stools, Constipation, Diarrhea, Nausea, Vomiting, Difficulty Swallowing, Anorexia Genitourinary: DENIES: Abnormal vaginal bleeding, Dysmenorrhea, Dyspareunia, Sexual dysfunction, Urinary frequency, Urinary incontinence, Urgency, Hematuria , Dysuria, Nocturia, Vaginal discharge Musculoskeletal: DENIES: Joint pain, Muscle aches, Stiffness, Joint Swelling, Back pain, Neck pain Integumentary: DENIES: Abnormal pigmentation, Pruritus, Rash, Nail changes, Breast masses, Breast skin changes, Nipple discharge Hematologic/lymphatic: DENIES: Bruising, Lymphadenopathy Immunologic/allergic: DENIES: Eczema, Urticaria Neurologic: DENIES: Abnormal gait, Headache, Localized weakness, Paresthesias, Seizures, Speech Problems, Tremor, Poor Balance Psychiatric: COMPLAINS OF: Anxiety, Depression Past Family Social History Coded Allergies: No Known Allergies (Verified Allergy, Unknown, 10/16/17) Active Scripts Oxycodone (Oxycodone) 5 Mg Tab, 5 MG PO Q6H Y for PAIN SCALE 6 TO 10, #20 TAB Prov:Leslie Mayorga MD 10/02/17 Epinephrine Inj (Epinephrine Inj) 1 Mg/Ml (1 Ml) Inj, 0.3 MG SQ ONCE Y for ALLERGIC REACTION, #1 VIAL Give with any signs of respiratory distress. Prov:Agnes Knowles MD 10/01/17 Epinephrine Inj (Epinephrine Inj) 1 Mg/Ml (1 Ml) Inj, 0.3 MG IV PUSH ONCE Y for ALLERGIC REACTION, #1 VIAL Prov:gAnes Knowles MD 10/01/17 Hydrocortisone Inj (Solu-Cortef Inj) 250 Mg/2 Ml Inj, 250 MG IV PUSH ONCE Y for ALLERGIC REACTION, #1 VIAL 0 Refills Give over 30-60 seconds. Prov:Agnes Knowles MD 10/01/17 Ceftriaxone Inj (Ceftriaxone Inj) 2 Gram Inj, 2 GM IV Q24H for Infection for 42 Days, VIAL 0 Refills Prov:Agnes Knowles MD 10/01/17 Walker with Front Wheels (Walker with Front Wheels) 1 Mis Mis, EA .XX DIRECTED, #1 0 Refills Prov:Leslie Mayorga MD 10/01/17 Current Medications Medications (Trade) Dose Ordered Sig/Radha Route Start Time Stop Time Status Last Admin (NS Flush) 2 ml UNSCH PRN IV FLUSH 10/17/17 11:15 (NS Flush) 2 ml BID IV FLUSH 10/17/17 11:15 10/20/17 09:35 (Roxicodone) 5 mg Q4H PRN PO 10/17/17 12:00 (Roxicodone) 10 mg Q4H PRN PO 10/17/17 12:00 10/20/17 09:28 (Zofran Odt) 4 mg Q6H PRN PO 10/17/17 12:15 (Narcan Inj) 0.4 mg UNSCH PRN IV PUSH 10/17/17 12:00 Ceftriaxone Sodium 2000 mg/ Sodium Chloride 100 ml @ 200 mls/hr Q24H IV 10/18/17 11:00 10/20/17 11:30 (Folate) 1 mg DAILY PO 10/17/17 15:45 10/22/17 15:44 10/20/17 09:35 (Vitamin B1) 100 mg DAILY PO 10/17/17 15:45 10/20/17 09:28 (Theragran M Tab) 1 tab DAILY PO 10/17/17 15:45 10/22/17 15:44 10/20/17 09:35 (Romazicon Inj) 0.2 mg Q1M PRN IV PUSH 10/17/17 15:45 (Ativan) 1 mg Q4H PRN PO 10/17/17 15:45 (Ativan Inj) 1 mg Q4H PRN IV PUSH 10/17/17 15:45 10/17/17 16:22 (Ativan) 2 mg Q2H PRN PO 10/17/17 15:45 (Ativan Inj) 2 mg Q2H PRN IV PUSH 10/17/17 15:45 10/18/17 04:34 (Ativan Inj) 2 mg Q1H PRN IV PUSH 10/17/17 15:45 10/18/17 15:07 (Ativan Inj) 2 mg Q15M PRN IV PUSH 10/17/17 15:45 10/18/17 09:05 (Catapres) 0.1 mg Q6H PRN PO 10/17/17 15:45 (Haldol) 1 mg BID@0600,1800 PO 10/17/17 18:30 10/20/17 05:44 (Xarelto) 15 mg BID PO 10/18/17 12:15 10/20/17 09:28 (Habitrol 14 Mg Patch.24 Hr) 1 patch DAILY T-DERMAL 10/18/17 16:30 10/20/17 09:30 Miscellaneous Information 1 HS T-DERMAL 10/18/17 21:00 10/19/17 21:00 (Gyne Lotrimin 7 1% Vag Cream) 1 appl HS VAGINAL 10/20/17 21:00 10/26/17 21:01 (Morphine Inj) 2 mg Q3H PRN IV PUSH 10/20/17 12:00 Family Psych History Unknown at this time Social History Patient her is in senior living he is also a drug abuser she is now homeless Patient's Strengths (min. 2) Patient verbal able access healthcare Physical Exam Please see med surge assessments Vital Signs Vital Signs Date Time Temp Pulse Resp B/P (MAP) Pulse Ox O2 Delivery O2 Flow Rate FiO2 10/20/17 08:00 98.3 91 20 128/89 (102) 99 10/20/17 04:00 Room Air I/O 10/20/17 10/20/17 10/21/17 08:00 16:00 00:00 Intake Total 440 ml Balance 440 ml Lab Results Test 10/20/17 05:40 White Blood Count 5.1 TH/MM3 Red Blood Count 4.00 MIL/MM3 Hemoglobin 9.4 GM/DL Hematocrit 29.3 % Mean Corpuscular Volume 73.3 FL Mean Corpuscular Hemoglobin 23.6 PG Mean Corpuscular Hemoglobin Concent 32.2 % Red Cell Distribution Width 15.6 % Platelet Count 350 TH/MM3 Mean Platelet Volume 7.7 FL Blood Urea Nitrogen 6 MG/DL Creatinine 0.72 MG/DL Random Glucose 105 MG/DL Calcium Level 8.6 MG/DL Sodium Level 138 MEQ/L Potassium Level 3.7 MEQ/L Chloride Level 103 MEQ/L Carbon Dioxide Level 27.4 MEQ/L Anion Gap 8 MEQ/L Estimat Glomerular Filtration Rate 90 ML/MIN Date/Time Source Procedure Growth Status 10/17/17 10:40 Blood Peripheral Aerobic Blood Culture - Preliminary NO GROWTH IN 3 DAYS Resulted 10/17/17 10:40 Blood Peripheral Anaerobic Blood Culture - Preliminary NO GROWTH IN 3 DAYS Resulted 10/18/17 11:18 Stool Stool Cyclospora Exam - Final NO CYCLOSPORA SEEN Resulted 10/18/17 11:18 Stool Stool Cryptosporidium Exam Pending Resulted 10/18/17 11:18 Stool Stool Stool Pus (EDGAR) - Final RARE WBC Resulted 10/18/17 11:18 Stool Stool Giardia Antigen (EDGAR) Pending Resulted Mental Status Examination Appearance: Appropriate Consciousness: Alert Orientation: x4 Motor Activity: Other (Patient laying quietly in bed) Speech: Unremarkable Language: Adequate Fund of Knowledge: Adequate Attention and Concentration: Adequate Memory: Unremarkable Mood: Other (Euthymic to mildly dysphoric) Affect: Other (Good range and intensity) Thought Process & Associations: Intact, Logical Thought Content: Appropriate Hallucination Type: None Delusion Type: None Suicidal Ideation: No Suicidal Plan: No Suicidal Intention: No Homicidal Ideation: No Homicidal Plan: No Homicidal Intention: No Insight: Adequate Judgment: Adequate Assessment & Plan Problem List: (1) Adjustment disorder with mixed disturbance of emotions and conduct ICD Codes: F43.25 - Adjustment disorder with mixed disturbance of emotions and conduct (2) Polysubstance abuse ICD Codes: F19.10 - Other psychoactive substance abuse, uncomplicated Assessment & Plan Estimated LOS: days patient showing some insight into her need for cooperation with her treatment. Though there is no underlying anxiety and trepidation related to her addictions. We will offer her Seroquel small doses twice a day and a larger dose at bedtime. Patient does not meet Zuñiga criteria at this time nor does she meet criteria for inpatient psychiatric stay at this time case management needs to work with this lady related to funding issues and possible placement issues next a consult will follow on a as needed basis Discharge Planning To be determined Request HC Surrog/Guard Advoc?: No Radames Godinez MD Oct 20, 2017 13:36
[2017-10-20] MEDS: QUEtiapine FUMARATE 25 MG TAB PO SCH ×2 (14:00→20:49)
[2017-10-20] MEDS ORDERED: Vancomycin Consult Pharmacy 1 EA OTHER SCH (14:30)
[2017-10-20 16:00] VITALS: BP 141/90; PULSE 91; PULSE 92; RESP 20; TEMP 97.8; O2SAT 100
[2017-10-20] MEDS: VANCOMYCIN INJ 650 MG in SODIUM CHLOR 0.9% 250 ML INJ 250 ML IV SCH (16:22)
[2017-10-20 20:00] VITALS: BP 116/64; PULSE 104; PULSE 85; PULSE 87; RESP 19; TEMP 98.3; O2SAT 96
[2017-10-20] MEDS: CLOTRIMAZOLE 1% VAG CREAM 45 GM TUBE VAGINAL SCH (20:48)
[2017-10-20] MEDS: REMOVE OLD PATCH T-DERMAL SCH (20:52)
[2017-10-21] VITALS (13 sets, daily range): BP systolic 99–158; BP diastolic 56–75; PULSE 76–104; RESP 17–18; TEMP 97.8–98.9; O2SAT 95–99
--- NOTE | 2017-10-21 00:23 | HHI.FPPN ---
Addendum to progress note ADDENDUM Reason for addendum: Additonal documentation Additional information Dr Crespo was paged by nursing at 1145PM concerning a positive C Diff test on the pt. Dr Crespo has ordered Fidaxomicin 200mg PO BID for 10 days (10/21/17-). UpToDate states this is a good regimen for first occurrence C Diff and apparently does not significantly alter existing gut bacteria. Isidoro Crespo MD R1 Oct 21, 2017 00:23
[2017-10-21] MEDS ORDERED: FIDAXOMICIN 200 MG TAB PO ONE (01:00)
[2017-10-21] MEDS: HALOPERIDOL 1 MG TAB PO SCH ×2 (04:40→17:50)
[2017-10-21] MEDS: MORPHINE SULFATE 4 MG/ML INJ IV PUSH PRN (04:40)
[2017-10-21] MEDS: VANCOMYCIN INJ 650 MG in SODIUM CHLOR 0.9% 250 ML INJ 250 ML IV SCH ×2 (04:41→15:08)
[2017-10-21 06:55] LABS: AUTOMATED NEUTROPHIL # 2.5 TH/MM3 (1.8-7.7); BASOPHIL # 0.1 TH/MM3 (0-0.2); BASOPHIL % 1.3 % (0.0-2.0); EOSINOPHIL # 0.2 TH/MM3 (0-0.4); EOSINOPHIL % 4.5 % (0.0-4.0); HEMATOCRIT 27.2 % (35.0-46.0); HEMOGLOBIN 8.8 GM/DL (11.6-15.3); LYMPH % 32.7 % (9.0-44.0); LYMPHOCYTE # 1.7 TH/MM3 (1.0-4.8); MEAN CELL VOLUME 72.8 FL (80.0-100.0); MEAN CORPUSCULAR HEMOGLOBIN 23.5 PG (27.0-34.0); MEAN CORPUSCULAR HGB CONC 32.3 % (32.0-36.0); MEAN PLATELET VOLUME 7.5 FL (7.0-11.0); MONO % 11.2 % (0.0-8.0); MONOCYTE # 0.6 TH/MM3 (0-0.9); NEUT % 50.3 % (16.0-70.0); PLATELET COUNT 393 TH/MM3 (150-450); RED BLOOD COUNT 3.73 MIL/MM3 (4.00-5.30); RED CELL DISTRIBUTION WIDTH 15.4 % (11.6-17.2); WHITE BLOOD COUNT 5.1 TH/MM3 (4.0-11.0)
[2017-10-21 07:23] LABS: BICARBONATE 29.7 MEQ/L (21.0-32.0); CALCIUM 8.7 MG/DL (8.5-10.1); CREATININE 0.83 MG/DL (0.50-1.00)
[2017-10-21] MEDS: QUEtiapine FUMARATE 25 MG TAB PO SCH ×3 (09:00→22:18)
[2017-10-21] MEDS: THIAMINE HCL 100 MG TAB PO SCH (09:06)
[2017-10-21] MEDS: RIVAROXABAN 15 MG TAB PO SCH ×2 (09:06→22:18)
[2017-10-21] MEDS: MULTIVITAMINS/MINERALS THERAPEUTIC TAB PO SCH (09:06)
[2017-10-21] MEDS: NICOTINE 14 MG/24 HR PATCH T-DERMAL SCH (09:06)
[2017-10-21] MEDS: SODIUM CHLORIDE 0.9% FLUSH 10 ML FLUSH IV FLUSH SCH ×2 (09:07→21:00)
[2017-10-21] MEDS: FOLIC ACID 1 MG TAB PO SCH (09:07)
--- NOTE | 2017-10-21 10:00 | PD.PN.STU ---
Subjective Remarks Patient found lying in bed in no acute distress. No problems overnight. She reports she had "the best sleep in a long time" last night. She is pleasant this morning, and appears less agitated. Still complains of pain in her RUE. Pain exacerbated with movement. She understands that we will be transitioning her to oral medication only. She reports a formed BM movement yesterday, of normal color and consistency. However, stool was positive for C diff. Denies fever, chills, chest pain, SOB, abdominal pain, nausea, vomiting, constipation, or diarrhea. Objective Vitals Vital Signs Date Time Temp Pulse Resp B/P (MAP) Pulse Ox O2 Delivery O2 Flow Rate FiO2 10/21/17 04:00 98.3 90 17 122/58 (79) 95 10/21/17 04:00 94 10/21/17 04:00 Room Air 10/21/17 00:00 98.4 92 17 111/56 (74) 96 10/21/17 00:00 Room Air 10/21/17 00:00 101 10/20/17 20:00 85 10/20/17 20:00 Room Air 10/20/17 20:00 98.3 87 19 116/64 (81) 96 10/20/17 20:00 104 10/20/17 16:00 91 10/20/17 16:00 97.8 92 20 141/90 (107) 100 10/20/17 12:00 97.9 100 20 127/84 (98) 99 10/20/17 12:00 96 I/O 10/20/17 10/20/17 10/20/17 10/21/17 10/21/17 10/21/17 07:00 15:00 23:00 07:00 15:00 23:00 Intake Total 440 ml 600 ml Balance 440 ml 600 ml Intake Oral 440 ml 600 ml # Voids 2 4 # Bowel Movements 0 1 Result Diagram: 10/21/1760710/21/17 06 Other Results GENERAL: Thin, disheveled, female, appears older than her stated age. Found resting comfortably in bed, in no acute distress. Less agitated from prior exams. SKIN: No skin redness or overt swelling noted on RUE. CARDIOVASCULAR: Regular rate and rhythm without murmurs, gallops, or rubs. RESPIRATORY: Clear to auscultation. Breath sounds equal bilaterally. No wheezes , rales, or rhonchi. GASTROINTESTINAL: Abdomen soft, non-tender, nondistended. No hepato-splenomegaly , or palpable masses. No guarding. MUSCULOSKELETAL: Extremities without clubbing, cyanosis, or edema. No joint tenderness, effusion, or edema noted. No calf tenderness. NEUROLOGICAL: Awake and alert. Oriented x 3 A/P Assessment and Plan 41 y/o female with history of IVDA and bacterial endocarditis with PICC line admitted for RUE DVT. Code Status Full code Discussed Condition With Dr. Gonzalez, Dr. Martinez, and Dr Herrera Problem List: (1) Sepsis ICD Codes: A41.9 - Sepsis, unspecified organism Status: Acute Plan: Upon admission, patient met sepsis criteria with elevated white count of 13.5 and tachycardic at 118, with known source. WBC has continued to trend down throughout hospital course. 6/4: 5.1 Pulse has remained slightly elevated. See plan below. (2) Deep venous thrombosis of right upper extremity ICD Codes: I82.621 - Acute embolism and thrombosis of deep veins of right upper extremity Status: Acute Plan: Patient presenting with upper extremity pain. Upper extremity ultrasound positive for occlusive thrombus in right arm. Continue Xarelto 15mg PO twice daily. Patient will most likely need assisted oral anticoagulation coagulation upon discharge. (3) Endocarditis ICD Codes: I38 - Endocarditis, valve unspecified Plan: Patient with known strep endocarditis with septic emboli to distant organs. Patient has septic multiple infarcts to spleen, septic infarct of right kidney, subacute brain infarct. PICC line has been removed due to associated thrombus. Blood cultures showed gram positive rods x 1 day. Continue Rocephin 2 g IV every 24h per ID recommendations. Continue Vancomycin with pharmacy dosing recommendations. ID recommendations appreciated. Patient known to Dr. Knowles. (4) Diarrhea ICD Codes: R19.7 - Diarrhea, unspecified Plan: Patient reports 1 week history of watery, nonbloody diarrhea Patient currently on antibiotic therapy for endocarditis. Hemmocult is negative. C diff is positive. Other stool studies pending. Consider starting Vancomycin 125mg PO four times daily x 10-14 days. (5) IVDU (intravenous drug user) ICD Codes: F19.90 - Other psychoactive substance use, unspecified, uncomplicated Plan: Patient admits to IV Dilaudid and cocaine use UDS positive for amphetamines, cocaine, cannabinoids Patient positive for hep C 09/23/17 HIV nonreactive on 09/23/17 Pain control: Roxicodone 5 mg every 4h for pain 3-5, Roxicodone 10mg every 4h for pain 6-10. Discontinue IV morphine. (6) Hepatitis C ICD Codes: B19.20 - Unspecified viral hepatitis C without hepatic coma Plan: Patient positive for hep C 09/23/17 Will need outpatient treatment (7) Hypokalemia ICD Codes: E87.6 - Hypokalemia Status: Acute Plan: Potassium 3.1 on admission Replaced orally with return to normal limits Continue to monitor (8) Hyponatremia ICD Codes: E87.1 - Hypo-osmolality and hyponatremia Status: Acute Plan: Slight hyponatremia with sodium of 134 on admission Continue to monitor (10) Vaginal yeast infection ICD Codes: B37.3 - Candidiasis of vulva and vagina Status: Acute Plan: Patient reports that she continues to have vaginal itching. She reports that she was treated recently treated for yeast infection 2 weeks ago. -Miconazole vaginal cream N/A in pharmacy, start Clotrimazole 1% vaginal cream for 7 days (11) Nutrition, metabolism, and development symptoms ICD Codes: R63.8 - Other symptoms and signs concerning food and fluid intake Plan: Diet: Regular basic Fluids: Maintenance rate at 85mls/hr NS Vitals every 4, monitor I's and O's DVTppx: SCDs Case management consulted Note completed by Ayla Harkins, MS4 Ayla Harkins Oct 21, 2017 10:00
[2017-10-21] MEDS ORDERED: FIDAXOMICIN 200 MG TAB PO SCH (11:00)
--- NOTE | 2017-10-21 11:15 | HHI.FPPN ---
Subjective Remarks Patient seen and examined this morning. No acute events overnight per nursing staff. Patient with tachycardia to the 90s, otherwise vital signs within normal limits. Patient states that her only complaint today is continued right upper extremity pain. We discussed that we will be transitioning her from IV pain medication to strictly oral pain medications with all questions answered. Otherwise she has no complaints and denies any fevers, chills, shortness of breath, chest pain, NVD, abdominal pain, or calf tenderness at this time. (Chester Waldron MD R2) Objective Vitals Vital Signs Date Time Temp Pulse Resp B/P (MAP) Pulse Ox O2 Delivery O2 Flow Rate FiO2 10/21/17 08:05 98.2 90 17 119/63 (81) 98 10/21/17 04:00 98.3 90 17 122/58 (79) 95 10/21/17 04:00 94 10/21/17 04:00 Room Air 10/21/17 00:00 98.4 92 17 111/56 (74) 96 10/21/17 00:00 Room Air 10/21/17 00:00 101 10/20/17 20:00 85 10/20/17 20:00 Room Air 10/20/17 20:00 98.3 87 19 116/64 (81) 96 10/20/17 20:00 104 10/20/17 16:00 91 10/20/17 16:00 97.8 92 20 141/90 (107) 100 10/20/17 12:00 97.9 100 20 127/84 (98) 99 10/20/17 12:00 96 I/O 10/20/17 10/20/17 10/20/17 10/21/17 10/21/17 10/21/17 07:00 15:00 23:00 07:00 15:00 23:00 Intake Total 440 ml 600 ml Balance 440 ml 600 ml Intake Oral 440 ml 600 ml # Voids 2 4 # Bowel Movements 0 1 (Chester Waldron MD R2) Result Diagram: 10/21/17 0608 10/21/17 0608 Objective Remarks GENERAL: Thin, disheveled female lying in bed appearing older than her stated age in no acute distress. SKIN: Warm and dry. RUE: Thrombus palpated in the right upper extremity without signs of erythema, warmth, or swelling. HEENT: Atraumatic, normocephalic with extraocular motions intact. No rhinorrhea. No visible lymphadenopathy or jugulovenous distension appreciated. CARDIOVASCULAR: Regular rate and rhythm without obvious murmurs, gallops, or rubs. 2+ pulses in all four extremities. RESPIRATORY: Clear to auscultation bilaterally with no crackles, wheezes, or rhonchi. No increased work of breathing. GASTROINTESTINAL: Abdomen soft, non-tender, nondistended with positive bowel sounds. No masses appreciated. MUSCULOSKELETAL: No cyanosis or edema. No calf tenderness. Ambulating well per report. NEURO/PSYCH: Afocal. Awake, alert, and oriented x3. Normal speech and judgement. (Chester Waldron MD R2) A/P Assessment and Plan 41-year-old female with history of IV drug use and recent diagnosis of endocarditis with PICC line admitted for upper extremity DVT. Discharge Planning Anticipate patient being here for 3-4 weeks for IV abx treatment of endocarditis (Chester Waldron MD R2) Attending Attestation Pt. examined independently and case discussed with resident physicians. I have read the above note and agree with the assessment and plan as discussed with me. I was involved in all medical decision making for this patient. Andres Martinez MD (Andres Martinez MD) Problem List: (1) Endocarditis ICD Codes: I38 - Endocarditis, valve unspecified Status: Acute Plan: Patient with known strep endocarditis with septic emboli to distant organs. Patient had septic multiple infarcts to spleen, septic infarct of right kidney, subacute brain infarct on previous admission. Patient patient had been receiving IV antibiotics at the infusion clinic. PICC line removed. Blood cultures: One vial with Gram negative rods and Gram positive rods Continue Rocephin 2 g IV every 24h Continue Vancomycin 650mg BID, pharmacy consulted Consult infectious disease, recommendations appreciated. Patient known to Dr. Knowles. -continue management as above, follow cultures (2) Sepsis ICD Codes: A41.9 - Sepsis, unspecified organism Status: Resolved Plan: Patient meets sepsis criteria elevated white count of 13.5 and tachycardic at 118 on admission, with known source. See plan above. (3) Clostridium difficile diarrhea ICD Codes: A04.72 - Enterocolitis due to Clostridium difficile, not specified as recurrent Status: Acute Plan: Patient reports 1 week history of watery, nonbloody diarrhea Patient currently on antibiotic therapy for endocarditis. C. difficile: Positive Hemoccult negative Other stool studies still pending Medications: -Patient started on Dificid 200mg BID for 10 days (4) Deep venous thrombosis of right upper extremity ICD Codes: I82.621 - Acute embolism and thrombosis of deep veins of right upper extremity Status: Acute Plan: Patient presenting with upper extremity pain. Upper extremity ultrasound positive for occlusive thrombus in right arm. PICC line removed Continue Xarelto 15 mg BID for anticoagulation Pain control: Roxicodone 5mg PO q4 PRN pain 3-5 Roxicodone 10mg PO q4 PRN pain 6-10 (5) IVDU (intravenous drug user) ICD Codes: F19.90 - Other psychoactive substance use, unspecified, uncomplicated Status: Chronic Plan: Patient admits to IV Dilaudid and cocaine use UDS positive for amphetamines, cocaine, cannabinoids Patient positive for hep C 09/23/17 HIV nonreactive on 09/23/17 Pain control: Roxicodone 5 mg every 4h for pain 3-5, Roxicodone 10mg every 4h for pain 6-10, morphine for breakthrough pain * Transition off morphine IV tomorrow (6) Withdrawal syndrome ICD Codes: F19.939 - Other psychoactive substance use, unspecified with withdrawal, unspecified Status: Chronic Plan: Patient placed on CIWA protocol Patient was seen and evaluated by psychiatry during hospital admission on . Patient was considered delirious due to polysubstance abuse. Patient received Haldol 1 mg twice daily to help with psychosis and behavioral control. Will continued Haldol 1mg BID Psychiatry consulted, appreciate recommendations. Medications: -Patient started on Seroquel 25mg at 0900, 1400 and 50mg QHS (7) Hepatitis C ICD Codes: B19.20 - Unspecified viral hepatitis C without hepatic coma Status: Chronic Plan: Patient positive for hep C 09/23/17 Will need outpatient treatment (8) Hypokalemia ICD Codes: E87.6 - Hypokalemia Status: Resolved Plan: Potassium 3.1 on admission Improved to 4.6 today Replace orally Continue to monitor (9) Vaginal yeast infection ICD Codes: B37.3 - Candidiasis of vulva and vagina Status: Acute Plan: Patient reports that she continues to have vaginal itching. She reports that she was treated recently treated for yeast infection 2 weeks ago. -Miconazole vaginal cream N/A in pharmacy, start Clotrimazole 1% vaginal cream for 7 days (10) Nutrition, metabolism, and development symptoms ICD Codes: R63.8 - Other symptoms and signs concerning food and fluid intake Status: Acute Plan: Diet: Regular basic w/ ensure Fluids: PO hydration Vitals every 4, monitor I's and O's DVTppx: Xarelto, SCDs Case management consulted (Chester Waldron MD R2) Problem Qualifiers (1) Deep venous thrombosis of right upper extremity: Qualified Codes: I82.A11 - Acute embolism and thrombosis of right axillary vein Chester Waldron MD R2 Oct 21, 2017 11:15 Andres Martinez MD Oct 21, 2017 20:55
[2017-10-21] MEDS: cefTRIAXone INJ 2,000 MG in SODIUM CHLORIDE 0.9% INJ 100 ML IV SCH (12:03)
--- NOTE | 2017-10-21 19:33 | HHI.IDPN ---
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 Patient admits she has been shooting up in her PICC line and used crack cocaine yesterday morning. Patient states that a few days ago she began to experience pain around the PICC line that became unbearable overnight with radiation into the right axilla. She has been unable to lift her arm. She denies any fever or chills but endorses night sweats. She also complains of cough with whitish sputum production. She complains of nausea and watery diarrhea up to four times a day for the past week. She denies any chest pain or shortness of breath. She denies any dysuria. In the ED, she presented with sepsis with white count of 13.5, tachycardia and US of the RUE confirmed occlusive thrombus. CXR revealed no acute cardiopulmonary process. Her temperature at presentation was 99.4. On 10/15, her CRP was 11.40 which was an increase from 3.10 on 10/07. Today, her UDS positive for amphetamines, cocaine and cannabinoids. Infectious disease consultation has been requested for evaluation and management of endocarditis. Notes reviewed discussed with nursing staff she denies any fever or chills no N/V no abdominal pain no rash No diarrhea Antibiotics IV Ceftriaxone Lines PIV with no e/o infection Past Medical History IVDU Endocarditis with multiple septic emboli including the brain currently undergoing daily IV Ceftriaxone infusions Allergies: Coded Allergies: No Known Allergies (Verified Allergy, Unknown, 10/16/17) Objective . Vital Signs Date Time Temp Pulse Resp B/P (MAP) Pulse Ox O2 Delivery O2 Flow Rate FiO2 10/21/17 18:54 16 10/21/17 17:24 97 21 10/21/17 16:05 97.8 91 17 105/56 (72) 97 10/21/17 16:00 104 10/21/17 12:05 98.0 76 18 158/72 (100) 97 10/21/17 11:00 93 10/21/17 08:05 98.2 90 17 119/63 (81) 98 10/21/17 08:00 Room Air 10/21/17 08:00 89 10/21/17 04:00 98.3 90 17 122/58 (79) 95 10/21/17 04:00 94 10/21/17 04:00 Room Air 10/21/17 00:00 98.4 92 17 111/56 (74) 96 10/21/17 00:00 Room Air 10/21/17 00:00 101 10/20/17 20:00 85 10/20/17 20:00 Room Air 10/20/17 20:00 98.3 87 19 116/64 (81) 96 10/20/17 20:00 104 10/21/17 10/21/17 10/22/17 15:00 23:00 07:00 Intake Total 100 ml 770 ml Balance 100 ml 770 ml Intake Oral 520 ml IV Total 100 ml 250 ml # Voids 5 # Bowel Movements 1 . Laboratory Tests Test 10/20/17 05:40 10/21/17 06:08 White Blood Count 5.1 TH/MM3 5.1 TH/MM3 Red Blood Count 4.00 MIL/MM3 3.73 MIL/MM3 Hemoglobin 9.4 GM/DL 8.8 GM/DL Hematocrit 29.3 % 27.2 % Mean Corpuscular Volume 73.3 FL 72.8 FL Mean Corpuscular Hemoglobin 23.6 PG 23.5 PG Mean Corpuscular Hemoglobin Concent 32.2 % 32.3 % Red Cell Distribution Width 15.6 % 15.4 % Platelet Count 350 TH/MM3 393 TH/MM3 Mean Platelet Volume 7.7 FL 7.5 FL Neutrophils (%) (Auto) 50.3 % Lymphocytes (%) (Auto) 32.7 % Monocytes (%) (Auto) 11.2 % Eosinophils (%) (Auto) 4.5 % Basophils (%) (Auto) 1.3 % Neutrophils # (Auto) 2.5 TH/MM3 Lymphocytes # (Auto) 1.7 TH/MM3 Monocytes # (Auto) 0.6 TH/MM3 Eosinophils # (Auto) 0.2 TH/MM3 Basophils # (Auto) 0.1 TH/MM3 CBC Comment DIFF FINAL Differential Comment Laboratory Tests Test 10/20/17 05:40 10/21/17 06:08 Blood Urea Nitrogen 6 MG/DL 8 MG/DL Creatinine 0.72 MG/DL 0.83 MG/DL Random Glucose 105 MG/DL 90 MG/DL Calcium Level 8.6 MG/DL 8.7 MG/DL Sodium Level 138 MEQ/L 140 MEQ/L Potassium Level 3.7 MEQ/L 4.1 MEQ/L Chloride Level 103 MEQ/L 102 MEQ/L Carbon Dioxide Level 27.4 MEQ/L 29.7 MEQ/L Anion Gap 8 MEQ/L 8 MEQ/L Estimat Glomerular Filtration Rate 90 ML/MIN 76 ML/MIN Microbiology Date/Time Source Procedure Growth Status 10/20/17 19:54 Blood Peripheral Aerobic Blood Culture - Preliminary NO GROWTH IN 1 DAY Resulted 10/20/17 19:54 Blood Peripheral Anaerobic Blood Culture - Preliminary NO GROWTH IN 1 DAY Resulted 10/20/17 19:49 Blood Peripheral Aerobic Blood Culture - Preliminary NO GROWTH IN 1 DAY Resulted 10/20/17 19:49 Blood Peripheral Anaerobic Blood Culture - Preliminary NO GROWTH IN 1 DAY Resulted Imaging Last Impressions Upper Extremity Ultrasound 10/17/17 0000 Signed Impressions: CONCLUSION: 1. Occlusive thrombus right arm. Chest X-Ray 10/17/17 0000 Signed Impressions: CONCLUSION: No acute cardiopulmonary disease Physical Exam GENERAL: This is a thin, disheveled ill appearing female patient who appears much older than her stated age, in no apparent distress. Appears agitated, restless. SKIN: No rashes, ecchymoses or lesions. Warm and dry. HEAD: Atraumatic. Normocephalic. No temporal or scalp tenderness. EYES: Pupils equal round and reactive. Extraocular motions intact. No scleral icterus. No injection or drainage. ENT: Nose without bleeding or purulent drainage. Throat without erythema, tonsillar hypertrophy or exudate. Uvula midline. Airway patent. MMM. NECK: Trachea midline. No JVD or lymphadenopathy. Supple, nontender, no meningeal signs. CARDIOVASCULAR: Tachycardic without murmurs, gallops, or rubs. RESPIRATORY: Nonlabored. Clear to auscultation. Breath sounds equal bilaterally. No wheezes, rales, or rhonchi. GASTROINTESTINAL: Abdomen soft, non-tender, nondistended. No hepato-splenomegaly , or palpable masses. No guarding. MUSCULOSKELETAL: Extremities without clubbing or cyanosis. No BLE edema. No calf tenderness. RUE mildly edematous and erythematous, tender to palpation. Decreased ROM in RUE. NEUROLOGICAL: Awake and alert. Cranial nerves II through XII grossly intact. Motor and sensory grossly within normal limits. Normal speech. 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 difficile positive diarrhea AMA risk, psych consulted to assess competency RECS: Continue on IV Ceftriaxone Start oral vancomycin continue while on IV antibiotics and for an additional 10 days after DVT management per primary team Follow blood cultures if repeat blood cultures negative at 72 hours okay to discontinue vancomycin IV as it likely appears to be a contaminant. Follow clinically will likely need to stay in hospital to complete therapy since she is non compliant and has abused her PICC line. Discussed with case management Agnes Knowles MD Oct 21, 2017 19:33
[2017-10-21] MEDS: CLOTRIMAZOLE 1% VAG CREAM 45 GM TUBE VAGINAL SCH (21:00)
[2017-10-21] MEDS: REMOVE OLD PATCH T-DERMAL SCH (21:00)
[2017-10-21] MEDS: VANCOMYCIN 500 MG VIAL (FOR ORAL USE ONLY) PO SCH (22:19)
[2017-10-22] VITALS (9 sets, daily range): BP systolic 117–136; BP diastolic 64–86; PULSE 75–104; RESP 16–20; TEMP 97.8–98.4; O2SAT 97–100
[2017-10-22] MEDS ORDERED: PHARMACY ORDERED LAB ONE (03:45)
[2017-10-22] MEDS: VANCOMYCIN INJ 650 MG in SODIUM CHLOR 0.9% 250 ML INJ 250 ML IV SCH (04:02)
[2017-10-22 05:45] LABS: BICARBONATE 30.9 MEQ/L (21.0-32.0); CALCIUM 9.3 MG/DL (8.5-10.1); CREATININE 0.84 MG/DL (0.50-1.00)
[2017-10-22] MEDS: HALOPERIDOL 1 MG TAB PO SCH ×2 (06:00→18:00)
[2017-10-22 08:03] LABS: AUTOMATED NEUTROPHIL # 2.8 TH/MM3 (1.8-7.7); BASOPHIL # 0.1 TH/MM3 (0-0.2); BASOPHIL % 1.3 % (0.0-2.0); EOSINOPHIL # 0.2 TH/MM3 (0-0.4); EOSINOPHIL % 3.7 % (0.0-4.0); HEMATOCRIT 30.2 % (35.0-46.0); HEMOGLOBIN 9.8 GM/DL (11.6-15.3); LYMPH % 31.5 % (9.0-44.0); LYMPHOCYTE # 1.7 TH/MM3 (1.0-4.8); MEAN CELL VOLUME 72.8 FL (80.0-100.0); MEAN CORPUSCULAR HEMOGLOBIN 23.6 PG (27.0-34.0); MEAN CORPUSCULAR HGB CONC 32.5 % (32.0-36.0); MEAN PLATELET VOLUME 7.2 FL (7.0-11.0); MONO % 11.5 % (0.0-8.0); MONOCYTE # 0.6 TH/MM3 (0-0.9); PLATELET COUNT 421 TH/MM3 (150-450); RED BLOOD COUNT 4.15 MIL/MM3 (4.00-5.30); RED CELL DISTRIBUTION WIDTH 15.4 % (11.6-17.2); WHITE BLOOD COUNT 5.5 TH/MM3 (4.0-11.0)
[2017-10-22] MEDS: MULTIVITAMINS/MINERALS THERAPEUTIC TAB PO SCH (08:16)
[2017-10-22] MEDS: THIAMINE HCL 100 MG TAB PO SCH (08:16)
[2017-10-22] MEDS: RIVAROXABAN 15 MG TAB PO SCH ×2 (08:16→20:28)
[2017-10-22] MEDS: QUEtiapine FUMARATE 25 MG TAB PO SCH ×4 (08:16→20:27)
[2017-10-22] MEDS: FOLIC ACID 1 MG TAB PO SCH (08:16)
[2017-10-22] MEDS: NICOTINE 14 MG/24 HR PATCH T-DERMAL SCH (08:17)
[2017-10-22] MEDS: SODIUM CHLORIDE 0.9% FLUSH 10 ML FLUSH IV FLUSH SCH ×2 (08:21→20:29)
[2017-10-22] MEDS: VANCOMYCIN 500 MG VIAL (FOR ORAL USE ONLY) PO SCH ×4 (09:00→20:28)
[2017-10-22] MEDS: cefTRIAXone INJ 2,000 MG in SODIUM CHLORIDE 0.9% INJ 100 ML IV SCH (11:17)
[2017-10-22] MEDS ORDERED: VANCOMYCIN INJ 750 MG in SODIUM CHLOR 0.9% 250 ML INJ 250 ML IV SCH (12:00)
--- NOTE | 2017-10-22 15:36 | HHI.FPPN ---
Subjective Remarks Patient was seen and evaluated this morning. Patient denies chest pain, heart palpitations, shortness of breath, nausea/vomiting, diarrhea and constipation. She complains of pain along the medial aspect of her right upper extremity. She says that when she lifts her arm, it feels like the "vein stretches." She is afraid of "going through withdrawal alone." She has been on pain medication for 20 years; she admits to being addicted and abusing pain medication for the past 11 years. She states that she has no family or friends who are able to visit. Her is in [facility] and she cannot get in touch with him. She asks to restart IV morphine. She threatens to leave AMA. She voices understanding of the risks associated with leaving the hospital prior to completion of her antibiotic course. All questions were answered. (Angeline Jha MD R1) Objective Vitals Vital Signs Date Time Temp Pulse Resp B/P (MAP) Pulse Ox O2 Delivery O2 Flow Rate FiO2 10/22/17 12:05 98.4 95 20 117/64 (81) 98 10/22/17 08:15 98.2 90 20 124/73 (90) 98 10/22/17 08:00 96 Room Air 21 10/22/17 08:00 75 10/22/17 04:00 97.8 87 18 119/86 (97) 97 10/22/17 04:00 Room Air 10/22/17 03:38 91 10/22/17 00:00 Room Air 10/21/17 23:58 98.0 88 18 99/66 (77) 96 10/21/17 23:45 93 10/21/17 20:00 98.9 103 18 132/75 (94) 99 10/21/17 20:00 Room Air 10/21/17 19:46 96 10/21/17 18:54 16 10/21/17 17:24 97 21 10/21/17 16:05 97.8 91 17 105/56 (72) 97 10/21/17 16:00 104 I/O 10/21/17 10/21/17 10/21/17 10/22/17 10/22/17 10/22/17 07:00 15:00 23:00 07:00 15:00 23:00 Intake Total 100 ml 770 ml 480 ml Output Total 1 ml Balance 100 ml 770 ml 479 ml Intake Oral 520 ml 480 ml IV Total 100 ml 250 ml Stool Total 1 ml # Voids 5 2 # Bowel Movements 1 (Angeline Jha MD R1) Result Diagram: 10/22/17 0735 10/22/17 0355 Imaging Last Impressions Upper Extremity Ultrasound 10/17/17 0000 Signed Impressions: CONCLUSION: 1. Occlusive thrombus right arm. Chest X-Ray 10/17/17 0000 Signed Impressions: CONCLUSION: No acute cardiopulmonary disease Objective Remarks GENERAL: Thin, disheveled female lying in bed appearing older than her stated age in no acute distress. SKIN: Warm and dry. * RUE: Thrombus palpated in the right upper extremity without signs of erythema , warmth, or swelling. HEENT: Atraumatic, normocephalic with extraocular motions intact. No rhinorrhea. No visible lymphadenopathy or JVD appreciated. CARDIOVASCULAR: Regular rate and rhythm without obvious murmurs, gallops, or rubs. RESPIRATORY: Clear to auscultation bilaterally with no crackles, wheezes, or rhonchi. No increased work of breathing. GASTROINTESTINAL: Positive bowel sounds. Abdomen soft, non-tender, nondistended. No masses appreciated. MUSCULOSKELETAL: No cyanosis or edema. No calf tenderness. Ambulating well per patient. NEURO/PSYCH: Awake, alert, and oriented x3. Normal speech and judgement. Medications and IVs Current Medications Medications (Trade) Dose Ordered Sig/Radha Route Start Time Stop Time Status Last Admin (NS Flush) 2 ml UNSCH PRN IV FLUSH 10/17/17 11:15 (NS Flush) 2 ml BID IV FLUSH 10/17/17 11:15 10/22/17 08:21 (Roxicodone) 5 mg Q4H PRN PO 10/17/17 12:00 (Roxicodone) 10 mg Q4H PRN PO 10/17/17 12:00 10/22/17 12:33 (Zofran Odt) 4 mg Q6H PRN PO 10/17/17 12:15 (Narcan Inj) 0.4 mg UNSCH PRN IV PUSH 10/17/17 12:00 Ceftriaxone Sodium 2000 mg/ Sodium Chloride 100 ml @ 200 mls/hr Q24H IV 10/18/17 11:00 10/22/17 11:17 (Folate) 1 mg DAILY PO 10/17/17 15:45 10/22/17 15:44 10/22/17 08:16 (Vitamin B1) 100 mg DAILY PO 10/17/17 15:45 10/22/17 08:16 (Theragran M Tab) 1 tab DAILY PO 10/17/17 15:45 10/22/17 15:44 10/22/17 08:16 (Romazicon Inj) 0.2 mg Q1M PRN IV PUSH 10/17/17 15:45 (Ativan) 1 mg Q4H PRN PO 10/17/17 15:45 (Ativan Inj) 1 mg Q4H PRN IV PUSH 10/17/17 15:45 10/17/17 16:22 (Ativan) 2 mg Q2H PRN PO 10/17/17 15:45 (Ativan Inj) 2 mg Q2H PRN IV PUSH 10/17/17 15:45 10/18/17 04:34 (Ativan Inj) 2 mg Q1H PRN IV PUSH 10/17/17 15:45 10/18/17 15:07 (Ativan Inj) 2 mg Q15M PRN IV PUSH 10/17/17 15:45 10/18/17 09:05 (Catapres) 0.1 mg Q6H PRN PO 10/17/17 15:45 (Haldol) 1 mg BID@0600,1800 PO 10/17/17 18:30 10/22/17 06:00 (Xarelto) 15 mg BID PO 10/18/17 12:15 10/22/17 08:16 (Habitrol 14 Mg Patch.24 Hr) 1 patch DAILY T-DERMAL 10/18/17 16:30 10/22/17 08:17 Miscellaneous Information 1 HS T-DERMAL 10/18/17 21:00 10/21/17 21:00 (Gyne Lotrimin 7 1% Vag Cream) 1 appl HS VAGINAL 10/20/17 21:00 10/26/17 21:01 10/21/17 21:00 (SEROquel) 25 mg BID@0900,1400 PO 10/20/17 14:00 10/21/17 13:13 (SEROquel) 50 mg HS PO 10/20/17 21:00 10/21/17 22:18 (VANCOMYCIN for oral use only) 125 mg QID PO 10/21/17 21:00 10/22/17 12:32 (Angeline Jha MD R1) Urinary Catheter: No (Angeline Jha MD R1) Vascular Central Line Catheter: No (Angeline Jha MD R1) A/P Assessment and Plan 41 year-old female with history of IV drug use and recent diagnosis of endocarditis with PICC line admitted for upper extremity DVT. Discharge Planning Anticipate patient being here for 3-4 weeks for IV abx treatment of endocarditis. (Angeline Jha MD R1) Problem List: (1) Endocarditis ICD Codes: I38 - Endocarditis, valve unspecified Status: Acute Plan: 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 Patient had been receiving IV antibiotics via PICC line at the infusion clinic. PICC line abused as outpatient and removed during this admission. Microbiology: * Blood cultures 10/17: Gram positive rods x1 vial * Blood culture 10/20: no growth up to date * Initial culture likely contaminate. Medications: * Ceftriaxone 2 g IV every 24h. * Vancomycin 650mg BID, pharmacy consulted. Consults: * Infectious disease: * Patient known to Dr. Knowles. * Per Dr. Knowles: Continue on IV Ceftriaxone. Follow blood cultures if repeat blood cultures negative at 72 hours okay to discontinue vancomycin IV as it likely appears to be a contaminant. Will likely need to stay in hospital to complete therapy since she is non compliant and has abused her PICC line. (2) Deep venous thrombosis of right upper extremity ICD Codes: I82.621 - Acute embolism and thrombosis of deep veins of right upper extremity Status: Acute Plan: On admission, patient presenting with upper extremity pain. Upper extremity ultrasound positive for occlusive thrombus in right arm. PICC line removed shortly after admission. Medications: * Xarelto 15 mg BID. * Roxicodone 5mg PO q4 PRN pain 3-5. * Roxicodone 10mg PO q4 PRN pain 6-10. (3) Clostridium difficile diarrhea ICD Codes: A04.72 - Enterocolitis due to Clostridium difficile, not specified as recurrent Status: Acute Plan: Patient reports one week history of watery, nonbloody diarrhea. Patient currently on antibiotic therapy for endocarditis. Labs: * C. difficile Tox PCR: Positive * C. difficile Tox Epid 027: Presumptive Positive Microbiology: * Hemoccult: negative. * Stool studies: negative. Medications: * Oral vancomycin 125mg PO QID. (4) Sepsis ICD Codes: A41.9 - Sepsis, unspecified organism Status: Resolved Plan: On admission, patient met sepsis criteria with elevated WBC of 13.5 and tachycardia up to 118 plus known source. Resolved. * Source treated as above. (5) IVDU (intravenous drug user) ICD Codes: F19.90 - Other psychoactive substance use, unspecified, uncomplicated Status: Chronic Plan: Patient admits to IV Dilaudid and cocaine use. On admission, UDS positive for amphetamines, cocaine, cannabinoids. Patient positive for hep C on 09/23/17. Patient nonreactive for HIV on 09/23/17. Patient requesting IV morphine. Patient threatening to leave AMA. Pain medication will not be increased at this time; there is no medical necessity to increase pain medication. (6) Withdrawal syndrome ICD Codes: F19.939 - Other psychoactive substance use, unspecified with withdrawal, unspecified Status: Chronic Plan: Patient placed on CIWA protocol. Patient was seen and evaluated by psychiatry during hospital admission on . Patient was considered delirious due to polysubstance abuse. Patient received Haldol 1 mg twice daily to help with psychosis and behavioral control. Medications: * Haldol 1mg BID. * Seroquel 25mg at 0900, 1400 and 50mg QHS (7) Hepatitis C ICD Codes: B19.20 - Unspecified viral hepatitis C without hepatic coma Status: Chronic Plan: Patient positive for hep C on 09/23/17. Will need outpatient treatment. (8) Hypokalemia ICD Codes: E87.6 - Hypokalemia Status: Resolved Plan: On admission, Potassium 3.1. Hypokalemia resolved as of 10/19. (9) Vaginal yeast infection ICD Codes: B37.3 - Candidiasis of vulva and vagina Status: Acute Plan: Patient has reported continued vaginal itching. She was recently treated for a yeast infection. Medications: * Clotrimazole 1% vaginal cream for 7 days (10/20-). (10) Nutrition, metabolism, and development symptoms ICD Codes: R63.8 - Other symptoms and signs concerning food and fluid intake Status: Acute Plan: Fluids: * Tolerates PO. Nutrition: * Regular basic w/ Ensure. Electrolytes: * Monitor and replete as necessary. DVTprophylaxis: * Xarelto. * SCDs. (Angeline Jha MD R1) Problem Qualifiers (1) Deep venous thrombosis of right upper extremity: Qualified Codes: I82.A11 - Acute embolism and thrombosis of right axillary vein Angeline Jha MD R1 Oct 22, 2017 15:36 Andres Martinez MD Oct 22, 2017 16:14
[2017-10-22] MEDS: CLOTRIMAZOLE 1% VAG CREAM 45 GM TUBE VAGINAL SCH (20:29)
[2017-10-22] MEDS: REMOVE OLD PATCH T-DERMAL SCH (20:29)
[2017-10-23] VITALS (13 sets, daily range): BP systolic 106–125; BP diastolic 66–80; PULSE 78–104; RESP 16–20; TEMP 98–98.7; O2SAT 97–99
[2017-10-23 06:22] LABS: HEMOGLOBIN 10.2 GM/DL (11.6-15.3); MEAN CELL VOLUME 73.5 FL (80.0-100.0); MEAN CORPUSCULAR HEMOGLOBIN 23.4 PG (27.0-34.0); MEAN CORPUSCULAR HGB CONC 31.9 % (32.0-36.0); MEAN PLATELET VOLUME 7.2 FL (7.0-11.0); PLATELET COUNT 409 TH/MM3 (150-450); RED BLOOD COUNT 4.36 MIL/MM3 (4.00-5.30); RED CELL DISTRIBUTION WIDTH 15.6 % (11.6-17.2); WHITE BLOOD COUNT 5.9 TH/MM3 (4.0-11.0)
[2017-10-23] MEDS: HALOPERIDOL 1 MG TAB PO SCH ×2 (06:32→19:18)
[2017-10-23 06:42] LABS: BICARBONATE 28.7 MEQ/L (21.0-32.0); CALCIUM 9.4 MG/DL (8.5-10.1); CREATININE 0.72 MG/DL (0.50-1.00)
[2017-10-23] MEDS: QUEtiapine FUMARATE 25 MG TAB PO SCH ×3 (09:28→19:49)
[2017-10-23] MEDS: NICOTINE 14 MG/24 HR PATCH T-DERMAL SCH (09:28)
[2017-10-23] MEDS: VANCOMYCIN 500 MG VIAL (FOR ORAL USE ONLY) PO SCH ×5 (09:28→21:00)
[2017-10-23] MEDS: THIAMINE HCL 100 MG TAB PO SCH (09:28)
[2017-10-23] MEDS: RIVAROXABAN 15 MG TAB PO SCH ×2 (09:28→19:49)
[2017-10-23] MEDS: cefTRIAXone INJ 2,000 MG in SODIUM CHLORIDE 0.9% INJ 100 ML IV SCH (11:00)
--- NOTE | 2017-10-23 11:15 | HHI.FPPN ---
Subjective Remarks Patient was seen and evaluated this morning. She admitted last night to crushing up and putting one oxycodone tablet into her IV. She is upset about loosing visitation privileges. She also reports excessive fatigue, which she attributes to Seroquel and Haldol. She again threatens to leave AMA and states that this hospitalization is a "waste of time." Importance of treatment with IV antibiotics for endocarditis readdressed. She voices understanding. Patient denies chest pain, heart palpitations, shortness of breath, nausea/vomiting, diarrhea and constipation. She denies vaginal itching. All questions were answered. (Angeline Jha MD R1) Objective Vitals Vital Signs Date Time Temp Pulse Resp B/P (MAP) Pulse Ox O2 Delivery O2 Flow Rate FiO2 10/23/17 08:20 98.4 78 18 106/71 (83) 98 10/23/17 04:00 87 10/23/17 03:50 98.7 86 16 113/66 (82) 99 10/23/17 01:05 98.1 90 16 112/67 (82) 97 10/23/17 00:00 84 10/22/17 20:12 Room Air 10/22/17 20:10 98.0 99 16 133/83 (100) 99 10/22/17 20:00 97 10/22/17 17:32 99 21 10/22/17 16:45 98.3 104 18 136/81 (99) 100 10/22/17 12:05 98.4 95 20 117/64 (81) 98 I/O 10/22/17 10/22/17 10/22/17 10/23/17 10/23/17 10/23/17 07:00 15:00 23:00 07:00 15:00 23:00 Intake Total 480 ml 960 ml 210 ml Output Total 1 ml 600 ml 600 ml Balance 479 ml 360 ml -390 ml Intake Oral 480 ml 960 ml 210 ml Output Urine Total 600 ml 600 ml Stool Total 1 ml # Voids 2 # Bowel Movements 0 (Angeline Jha MD R1) Result Diagram: 10/23/17 0520 10/23/17 0520 Imaging Last Impressions Upper Extremity Ultrasound 10/17/17 0000 Signed Impressions: CONCLUSION: 1. Occlusive thrombus right arm. Chest X-Ray 10/17/17 0000 Signed Impressions: CONCLUSION: No acute cardiopulmonary disease Objective Remarks GENERAL: Thin, disheveled female sitting up in bed; appearing older than her stated age; in no acute distress. SKIN: Warm and dry. * RUE: Thrombus palpated in the right upper extremity without signs of erythema , warmth, or swelling. HEENT: Atraumatic, normocephalic with extraocular motions intact. No rhinorrhea. No visible lymphadenopathy or JVD appreciated. CARDIOVASCULAR: Regular rate and rhythm without obvious murmurs, gallops, or rubs. RESPIRATORY: Clear to auscultation bilaterally with no crackles, wheezes, or rhonchi. No increased work of breathing. GASTROINTESTINAL: Positive bowel sounds. Abdomen soft, non-tender, nondistended. No masses appreciated. MUSCULOSKELETAL: No cyanosis or edema. No calf tenderness. Ambulating well per patient. NEURO/PSYCH: Awake, alert, and oriented x3. Normal speech and judgement. Medications and IVs Current Medications Medications (Trade) Dose Ordered Sig/Radha Route Start Time Stop Time Status Last Admin (NS Flush) 2 ml UNSCH PRN IV FLUSH 10/17/17 11:15 (NS Flush) 2 ml BID IV FLUSH 10/17/17 11:15 10/22/17 20:29 (Roxicodone) 5 mg Q4H PRN PO 10/17/17 12:00 (Roxicodone) 10 mg Q4H PRN PO 10/17/17 12:00 10/23/17 06:59 (Zofran Odt) 4 mg Q6H PRN PO 10/17/17 12:15 (Narcan Inj) 0.4 mg UNSCH PRN IV PUSH 10/17/17 12:00 Ceftriaxone Sodium 2000 mg/ Sodium Chloride 100 ml @ 200 mls/hr Q24H IV 10/18/17 11:00 10/22/17 11:17 (Vitamin B1) 100 mg DAILY PO 10/17/17 15:45 10/23/17 09:28 (Romazicon Inj) 0.2 mg Q1M PRN IV PUSH 10/17/17 15:45 (Ativan) 1 mg Q4H PRN PO 10/17/17 15:45 (Ativan Inj) 1 mg Q4H PRN IV PUSH 10/17/17 15:45 10/17/17 16:22 (Ativan) 2 mg Q2H PRN PO 10/17/17 15:45 (Ativan Inj) 2 mg Q2H PRN IV PUSH 10/17/17 15:45 10/18/17 04:34 (Ativan Inj) 2 mg Q1H PRN IV PUSH 10/17/17 15:45 10/18/17 15:07 (Ativan Inj) 2 mg Q15M PRN IV PUSH 10/17/17 15:45 10/18/17 09:05 (Catapres) 0.1 mg Q6H PRN PO 10/17/17 15:45 (Haldol) 1 mg BID@0600,1800 PO 10/17/17 18:30 10/23/17 06:32 (Xarelto) 15 mg BID PO 10/18/17 12:15 10/23/17 09:28 (Habitrol 14 Mg Patch.24 Hr) 1 patch DAILY T-DERMAL 10/18/17 16:30 10/23/17 09:28 Miscellaneous Information 1 HS T-DERMAL 10/18/17 21:00 10/22/17 20:29 (Gyne Lotrimin 7 1% Vag Cream) 1 appl HS VAGINAL 10/20/17 21:00 10/26/17 21:01 10/22/17 20:29 (SEROquel) 25 mg BID@0900,1400 PO 10/20/17 14:00 10/23/17 09:28 (SEROquel) 50 mg HS PO 10/20/17 21:00 10/22/17 20:27 (VANCOMYCIN for oral use only) 125 mg QID PO 10/21/17 21:00 10/23/17 09:28 (Angeline Jha MD R1) Urinary Catheter: No (Angeline Jha MD R1) Vascular Central Line Catheter: No (Angeline Jha MD R1) A/P Assessment and Plan 41 year-old female with history of IV drug use and recent diagnosis of endocarditis with PICC line admitted for upper extremity DVT. Discharge Planning Anticipate patient being here for 3-4 weeks for IV abx treatment of endocarditis. (Angeline Jha MD R1) Attending Attestation Patient independently examined and case discussed with resident physician I have read the above note and agree with the assessment/plan as discussed with me I was involved in all medical decision making for this patient Endocarditis: -Continue IV antibiotics per infectious disease -Blood cultures drawn on arrival likely contaminant, continue Rocephin Agitation: -We will decrease her morning and afternoon dose of Seroquel Andres Martinez MD (Andres Martinez MD) Problem List: (1) Endocarditis ICD Codes: I38 - Endocarditis, valve unspecified Status: Acute Plan: 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 Patient had been receiving IV antibiotics via PICC line at the infusion clinic. PICC line abused as outpatient and removed during this admission. Microbiology: * Blood cultures 10/17: Gram positive rods x1 vial * Blood culture 10/20: no growth up to date * Initial culture likely contaminate. Medications: * Ceftriaxone 2 g IV every 24h. Consults: * Infectious disease: * Patient known to Dr. Knowles. * Per Dr. Knowles: Continue on IV Ceftriaxone. Will likely need to stay in hospital to complete therapy since she is non compliant and has abused her PICC line. (2) Deep venous thrombosis of right upper extremity ICD Codes: I82.621 - Acute embolism and thrombosis of deep veins of right upper extremity Status: Acute Plan: On admission, patient presenting with upper extremity pain. Upper extremity ultrasound positive for occlusive thrombus in right arm. PICC line removed shortly after admission. Medications: * Xarelto 15 mg BID. * Roxicodone 5mg PO q4 PRN pain 3-5. * Roxicodone 10mg PO q4 PRN pain 6-10. (3) Clostridium difficile diarrhea ICD Codes: A04.72 - Enterocolitis due to Clostridium difficile, not specified as recurrent Status: Acute Plan: Patient reports one week history of watery, nonbloody diarrhea. Patient currently on antibiotic therapy for endocarditis. Labs: * C. difficile Tox PCR: Positive * C. difficile Tox Epid 027: Presumptive Positive Microbiology: * Hemoccult: negative. * Stool studies: negative. Medications: * Oral vancomycin 125mg PO QID (10/21-). (4) Sepsis ICD Codes: A41.9 - Sepsis, unspecified organism Status: Resolved Plan: On admission, patient met sepsis criteria with elevated WBC of 13.5 and tachycardia up to 118 plus known source. Resolved. * Source treated as above. (5) IVDU (intravenous drug user) ICD Codes: F19.90 - Other psychoactive substance use, unspecified, uncomplicated Status: Chronic Plan: Patient admits to IV Dilaudid and cocaine use. On admission, UDS positive for amphetamines, cocaine, cannabinoids. Patient positive for hep C on 09/23/17. Patient nonreactive for HIV on 09/23/17. Patient admits to crushing and putting one oxycodone tablet into IV overnight. Nursing protocol initiated. Patient threatening to leave AMA. Pain medication will not be increased at this time; there is no medical necessity to increase pain medication. (6) Withdrawal syndrome ICD Codes: F19.939 - Other psychoactive substance use, unspecified with withdrawal, unspecified Status: Chronic Plan: Patient placed on CIWA protocol. Patient was seen and evaluated by psychiatry during hospital admission on . Patient was considered delirious due to polysubstance abuse. Patient received Haldol 1 mg twice daily to help with psychosis and behavioral control. Medications: * Haldol 1mg BID. * Seroquel 25mg at 0900, 1400 and 50mg QHS (7) Hepatitis C ICD Codes: B19.20 - Unspecified viral hepatitis C without hepatic coma Status: Chronic Plan: Patient positive for hep C on 09/23/17. Will need outpatient treatment. (8) Hypokalemia ICD Codes: E87.6 - Hypokalemia Status: Resolved Plan: On admission, Potassium 3.1. Hypokalemia resolved as of 10/19. (9) Vaginal yeast infection ICD Codes: B37.3 - Candidiasis of vulva and vagina Status: Acute Plan: Patient has reported continued vaginal itching. She was recently treated for a yeast infection. Medications: * Clotrimazole 1% vaginal cream for 7 days (10/20-). (10) Nutrition, metabolism, and development symptoms ICD Codes: R63.8 - Other symptoms and signs concerning food and fluid intake Status: Acute Plan: Fluids: * Tolerates PO. Nutrition: * Regular basic w/ Ensure. Electrolytes: * Monitor and replete as necessary. DVTprophylaxis: * Xarelto. * SCDs. (Angeline Jha MD R1) Problem Qualifiers (1) Deep venous thrombosis of right upper extremity: Qualified Codes: I82.A11 - Acute embolism and thrombosis of right axillary vein Angeline Jha MD R1 Oct 23, 2017 11:15 Andres Martinez MD Oct 23, 2017 17:00
[2017-10-23] MEDS ORDERED: PHARMACY ORDERED LAB ONE (11:45)
[2017-10-23] MEDS: SODIUM CHLORIDE 0.9% FLUSH 10 ML FLUSH IV FLUSH SCH ×2 (14:04→21:00)
[2017-10-23] MEDS: REMOVE OLD PATCH T-DERMAL SCH (21:00)
[2017-10-23] MEDS: CLOTRIMAZOLE 1% VAG CREAM 45 GM TUBE VAGINAL SCH (21:00)
[2017-10-24] VITALS (10 sets, daily range): BP systolic 103–130; BP diastolic 68–85; PULSE 84–109; RESP 16–19; TEMP 97.2–98.4; O2SAT 98–100
[2017-10-24] MEDS: HALOPERIDOL 1 MG TAB PO SCH ×2 (06:07→17:43)
[2017-10-24] MEDS: THIAMINE HCL 100 MG TAB PO SCH (08:15)
[2017-10-24] MEDS: RIVAROXABAN 15 MG TAB PO SCH ×2 (08:16→22:05)
[2017-10-24] MEDS: VANCOMYCIN 500 MG VIAL (FOR ORAL USE ONLY) PO SCH ×4 (08:17→22:05)
[2017-10-24] MEDS: NICOTINE 14 MG/24 HR PATCH T-DERMAL SCH (08:17)
[2017-10-24] MEDS: QUEtiapine FUMARATE 25 MG TAB PO SCH ×2 (08:18→22:05)
[2017-10-24] MEDS: SODIUM CHLORIDE 0.9% FLUSH 10 ML FLUSH IV FLUSH SCH ×2 (08:23→21:00)
[2017-10-24] MEDS ORDERED: PILL SPLITTER OTHER PRN (09:30)
--- NOTE | 2017-10-24 09:41 | HHI.FPPN ---
Subjective Remarks Patient seen and examined this morning. Vital signs remain within normal limits. Patient's only complaint this morning is refusal of taking Seroquel medication due to drowsiness. We discussed that this is a side effect of the medication. She is agreeable at this time to decreasing the medication to 12.5mg during the day while keeping her 50 mg dose at night to aid sleep. Otherwise she has no complaints and denies any fevers, chills, shortness of breath, chest pain, NVD, abdominal pain, or calf tenderness. (Chester Waldron MD R2) Objective Vitals Vital Signs Date Time Temp Pulse Resp B/P (MAP) Pulse Ox O2 Delivery O2 Flow Rate FiO2 10/24/17 08:00 97.4 92 18 103/68 (80) 100 10/24/17 06:45 17 10/24/17 04:25 98.4 84 16 115/70 (85) 98 10/23/17 23:32 98.7 85 16 125/71 (89) 98 10/23/17 20:45 86 10/23/17 20:45 98 Room Air 10/23/17 20:14 98.4 100 16 121/72 (88) 98 10/23/17 17:36 97 21 10/23/17 15:10 98.0 104 20 107/80 (89) 99 10/23/17 14:21 97 21 10/23/17 12:20 98.3 99 18 111/73 (86) 98 I/O 10/23/17 10/23/17 10/23/17 10/24/17 10/24/17 10/24/17 07:00 15:00 23:00 07:00 15:00 23:00 Intake Total 210 ml 840 ml 1050 ml Output Total 600 ml 600 ml 1300 ml Balance -390 ml 240 ml -250 ml Intake Oral 210 ml 840 ml 1050 ml Output Urine Total 600 ml 600 ml 1300 ml # Bowel Movements 0 0 (Chester Waldron MD R2) Result Diagram: 10/23/17 0520 10/23/17 0520 Objective Remarks GENERAL: Thin appearing female sitting up in bed watching TV in no acute distress. SKIN: Warm and dry. No rash. RUE: Per previous report, thrombus palpated in right upper extremity without erythema, warmth, or swelling. HEENT: Atraumatic, normocephalic with extraocular motions intact. No rhinorrhea. No visible lymphadenopathy or jugulovenous distension appreciated. CARDIOVASCULAR: Regular rate and rhythm without obvious murmurs, gallops, or rubs. 2+ pulses in all four extremities. RESPIRATORY: Clear to auscultation bilaterally with no crackles, wheezes, or rhonchi. No increased work of breathing. GASTROINTESTINAL: Abdomen soft, non-tender, nondistended with positive bowel sounds. No masses appreciated. MUSCULOSKELETAL: No cyanosis or edema. No calf tenderness. NEURO/PSYCH: Afocal. Awake, alert, and oriented x3. Normal speech and judgement. (Chester Waldron MD R2) A/P Assessment and Plan 41 year-old female with history of IV drug use and recent diagnosis of endocarditis with PICC line admitted for upper extremity DVT. Discharge Planning Anticipate patient being here for 3-4 weeks for IV abx treatment of endocarditis. 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 Patient had been receiving IV antibiotics via PICC line at the infusion clinic. PICC line abused as outpatient and removed during this admission. Microbiology: * Blood cultures 10/17: Lactobacillus species * Blood culture 10/20: no growth up to date Medications: * Ceftriaxone 2 g IV every 24h. (10/18- ) Consults: * Infectious disease: * Patient known to Dr. Knowles. * Per Dr. Knowles: Continue on IV Ceftriaxone. Will likely need to stay in hospital to complete therapy since she is non compliant and has abused her PICC line. (2) Deep venous thrombosis of right upper extremity ICD Codes: I82.621 - Acute embolism and thrombosis of deep veins of right upper extremity Status: Acute Plan: On admission, patient presenting with upper extremity pain. Upper extremity ultrasound positive for occlusive thrombus in right arm. PICC line removed shortly after admission. Medications: * Xarelto 15 mg BID. * Roxicodone 5mg PO q4 PRN pain 3-5. * Roxicodone 10mg PO q4 PRN pain 6-10. * Avoid IV pain medication (3) Clostridium difficile diarrhea ICD Codes: A04.72 - Enterocolitis due to Clostridium difficile, not specified as recurrent Status: Acute Plan: Patient reports one week history of watery, nonbloody diarrhea. Patient currently on antibiotic therapy for endocarditis. Labs: * C. difficile Tox PCR: Positive * C. difficile Tox Epid 027: Presumptive Positive Microbiology: * Hemoccult: negative. * Stool studies: negative. Medications: * Oral vancomycin 125mg PO QID (10/21-). (4) Sepsis ICD Codes: A41.9 - Sepsis, unspecified organism Status: Resolved Plan: On admission, patient met sepsis criteria with elevated WBC of 13.5 and tachycardia up to 118 plus known source. Resolved. * Source treated as above. (5) IVDU (intravenous drug user) ICD Codes: F19.90 - Other psychoactive substance use, unspecified, uncomplicated Status: Chronic Plan: Patient admits to IV Dilaudid and cocaine use. On admission, UDS positive for amphetamines, cocaine, cannabinoids. Patient positive for hep C on 09/23/17. Patient nonreactive for HIV on 09/23/17. Patient admits to crushing and putting one oxycodone tablet into IV overnight. Nursing protocol initiated. Patient threatening to leave AMA. Pain medication will not be increased at this time; there is no medical necessity to increase pain medication. (6) Withdrawal syndrome ICD Codes: F19.939 - Other psychoactive substance use, unspecified with withdrawal, unspecified Status: Chronic Plan: Patient placed on CIWA protocol. Patient was seen and evaluated by psychiatry during hospital admission on . Patient was considered delirious due to polysubstance abuse. Patient received Haldol 1 mg twice daily to help with psychosis and behavioral control. Medications: * Haldol 1mg BID. * Seroquel 25mg at 0900, 1400 and 50mg QHS (7) Hepatitis C ICD Codes: B19.20 - Unspecified viral hepatitis C without hepatic coma Status: Chronic Plan: Patient positive for hep C on 09/23/17. Will need outpatient treatment. (8) Hypokalemia ICD Codes: E87.6 - Hypokalemia Status: Resolved Plan: On admission, Potassium 3.1. Hypokalemia resolved as of 10/19. (9) Vaginal yeast infection ICD Codes: B37.3 - Candidiasis of vulva and vagina Status: Acute Plan: Patient has reported continued vaginal itching. She was recently treated for a yeast infection. Medications: * Clotrimazole 1% vaginal cream for 7 days (10/20-). (10) Nutrition, metabolism, and development symptoms ICD Codes: R63.8 - Other symptoms and signs concerning food and fluid intake Status: Acute Plan: Fluids: * Tolerates PO. Nutrition: * Regular basic w/ Ensure. Electrolytes: * Monitor and replete as necessary. DVTprophylaxis: * Xarelto. * SCDs. (Chester Waldron MD R2) Problem Qualifiers (1) Endocarditis: (2) Deep venous thrombosis of right upper extremity: Qualified Codes: I82.A11 - Acute embolism and thrombosis of right axillary vein Chester Waldron MD R2 Oct 24, 2017 09:41 Andres Martinez MD Oct 24, 2017 14:42
[2017-10-24] MEDS: cefTRIAXone INJ 2,000 MG in SODIUM CHLORIDE 0.9% INJ 100 ML IV SCH (10:05)
--- NOTE | 2017-10-24 10:30 | HHI.IDPN ---
Subjective Subjective Remarks ID COVERAGE FOR DR Jeimy GREGORIO This is a 41yo female who is well known to my service with history of IVDU who was recently hospitalized for sepsis, strep bacteremia, strep MV endocarditis with septic emboli to distant organs, left knee septic arthritis and acute metabolic encephalopathy secondary to subacute brain infarction and was discharged on 10/02/17 with PICC line and continued IV 2gm Ceftriaxone infusions daily until November 04 under the care and supervision of her mother and sister who was admitted for pain and swelling in right upper extremity secondary to DVT. Patient admits she has been shooting up in her PICC line and used crack cocaine yesterday morning. Patient states that a few days ago she began to experience pain around the PICC line that became unbearable overnight with radiation into the right axilla. She has been unable to lift her arm. She denies any fever or chills but endorses night sweats. She also complains of cough with whitish sputum production. She complains of nausea and watery diarrhea up to four times a day for the past week. She denies any chest pain or shortness of breath. She denies any dysuria. In the ED, she presented with sepsis with white count of 13.5, tachycardia and US of the RUE confirmed occlusive thrombus. CXR revealed no acute cardiopulmonary process. Her temperature at presentation was 99.4. On 10/15, her CRP was 11.40 which was an increase from 3.10 on 10/07. Today, her UDS positive for amphetamines, cocaine and cannabinoids. Infectious disease consultation has been requested for evaluation and management of endocarditis. Notes reviewed D/W RN Afebrile Not happy being cooped up in her room and no visitors no N/V no abdominal pain no rash No diarrhea Antibiotics IV Ceftriaxone Current Medications Medications (Trade) Dose Ordered Sig/Radha Route Start Time Stop Time Status Last Admin (NS Flush) 2 ml UNSCH PRN IV FLUSH 10/17/17 11:15 (NS Flush) 2 ml BID IV FLUSH 10/17/17 11:15 10/24/17 08:23 (Roxicodone) 5 mg Q4H PRN PO 10/17/17 12:00 (Roxicodone) 10 mg Q4H PRN PO 10/17/17 12:00 10/24/17 10:04 (Zofran Odt) 4 mg Q6H PRN PO 10/17/17 12:15 (Narcan Inj) 0.4 mg UNSCH PRN IV PUSH 10/17/17 12:00 Ceftriaxone Sodium 2000 mg/ Sodium Chloride 100 ml @ 200 mls/hr Q24H IV 10/18/17 11:00 10/24/17 10:05 (Vitamin B1) 100 mg DAILY PO 10/17/17 15:45 10/24/17 08:15 (Romazicon Inj) 0.2 mg Q1M PRN IV PUSH 10/17/17 15:45 (Ativan) 1 mg Q4H PRN PO 10/17/17 15:45 (Ativan Inj) 1 mg Q4H PRN IV PUSH 10/17/17 15:45 10/17/17 16:22 (Ativan) 2 mg Q2H PRN PO 10/17/17 15:45 (Ativan Inj) 2 mg Q2H PRN IV PUSH 10/17/17 15:45 10/18/17 04:34 (Ativan Inj) 2 mg Q1H PRN IV PUSH 10/17/17 15:45 10/18/17 15:07 (Ativan Inj) 2 mg Q15M PRN IV PUSH 10/17/17 15:45 10/18/17 09:05 (Catapres) 0.1 mg Q6H PRN PO 10/17/17 15:45 (Haldol) 1 mg BID@0600,1800 PO 10/17/17 18:30 10/24/17 06:07 (Xarelto) 15 mg BID PO 10/18/17 12:15 10/24/17 08:16 (Habitrol 14 Mg Patch.24 Hr) 1 patch DAILY T-DERMAL 10/18/17 16:30 10/24/17 08:17 Miscellaneous Information 1 HS T-DERMAL 10/18/17 21:00 10/23/17 21:00 (Gyne Lotrimin 7 1% Vag Cream) 1 appl HS VAGINAL 10/20/17 21:00 10/26/17 21:01 10/23/17 21:00 (SEROquel) 50 mg HS PO 10/20/17 21:00 10/23/17 19:49 (VANCOMYCIN for oral use only) 125 mg QID PO 10/21/17 21:00 10/24/17 08:17 (SEROquel) 12.5 mg BID@0900,1400 PO 10/24/17 14:00 (Pill Splitter) 1 ea UNSCH PRN OTHER 10/24/17 09:30 Lines PIV with no e/o infection Past Medical History IVDU Endocarditis with multiple septic emboli including the brain currently undergoing daily IV Ceftriaxone infusions Allergies: Coded Allergies: No Known Allergies (Verified Allergy, Unknown, 10/16/17) Objective . Vital Signs Date Time Temp Pulse Resp B/P (MAP) Pulse Ox O2 Delivery O2 Flow Rate FiO2 10/24/17 08:00 97.4 92 18 103/68 (80) 100 10/24/17 08:00 Room Air 10/24/17 06:45 17 10/24/17 04:25 98.4 84 16 115/70 (85) 98 10/23/17 23:32 98.7 85 16 125/71 (89) 98 10/23/17 20:45 86 10/23/17 20:45 98 Room Air 10/23/17 20:14 98.4 100 16 121/72 (88) 98 10/23/17 17:36 97 21 10/23/17 15:10 98.0 104 20 107/80 (89) 99 10/23/17 14:21 97 21 10/23/17 12:20 98.3 99 18 111/73 (86) 98 . Laboratory Tests Test 10/23/17 05:20 White Blood Count 5.9 TH/MM3 Red Blood Count 4.36 MIL/MM3 Hemoglobin 10.2 GM/DL Hematocrit 32.0 % Mean Corpuscular Volume 73.5 FL Mean Corpuscular Hemoglobin 23.4 PG Mean Corpuscular Hemoglobin Concent 31.9 % Red Cell Distribution Width 15.6 % Platelet Count 409 TH/MM3 Mean Platelet Volume 7.2 FL Laboratory Tests Test 10/23/17 05:20 Blood Urea Nitrogen 10 MG/DL Creatinine 0.72 MG/DL Random Glucose 89 MG/DL Calcium Level 9.4 MG/DL Sodium Level 137 MEQ/L Potassium Level 4.2 MEQ/L Chloride Level 99 MEQ/L Carbon Dioxide Level 28.7 MEQ/L Anion Gap 9 MEQ/L Estimat Glomerular Filtration Rate 90 ML/MIN Imaging Last Impressions Upper Extremity Ultrasound 10/17/17 0000 Signed Impressions: CONCLUSION: 1. Occlusive thrombus right arm. Chest X-Ray 10/17/17 0000 Signed Impressions: CONCLUSION: No acute cardiopulmonary disease Physical Exam GENERAL: This is a thin female, awake and alert, NAD SKIN: No rashes, ecchymoses or lesions. Warm and dry. HEAD: Atraumatic. Normocephalic. No temporal or scalp tenderness. EYES: Pupils equal round and reactive. Extraocular motions intact. No scleral icterus. No injection or drainage. ENT: Nose without bleeding or purulent drainage. Moist mucosa, no thrush NECK: Trachea midline. No JVD or lymphadenopathy. Supple, nontender, no meningeal signs. CARDIOVASCULAR: Tachycardic without murmurs, gallops, or rubs. RESPIRATORY: Nonlabored. Clear to auscultation. Breath sounds equal bilaterally. No wheezes, rales, or rhonchi. GASTROINTESTINAL: Abdomen soft, non-tender, nondistended. No hepato-splenomegaly , or palpable masses. No guarding. MUSCULOSKELETAL: Extremities without clubbing or cyanosis. No BLE edema. No calf tenderness. NEUROLOGICAL: Grossly non-focal PSYCHIATRIC: Calm, cooperative with exam PIV with no e/o infection left forearm Assessment & Plan Remarks Severe sepsis RUE DVT -PICC line removed, on anticoagulation Acute metabolic encephalopathy: sepsis, IV drug use - resolved Strep MV endocarditis with septic emboli to distant organs Several subacute strokes left occipital region last admission IVDU, last used crack cocaine 10/16 -UDS + amphetamines, cocaine and cannabinoids Hep C C. difficile positive diarrhea AMA risk, psych consulted to assess competency RECS: Continue on IV Ceftriaxone Continue oral vancomycin continue while on IV antibiotics and for an additional 10 days after DVT management per primary team Monitor progress Will likely need to stay in hospital to complete therapy since she is non compliant and has abused her PICC line. Discussed with case management Kassandra Javier MD Oct 24, 2017 10:30
[2017-10-24] MEDS ORDERED: QUEtiapine FUMARATE 25 MG TAB PO SCH (14:00)
[2017-10-24] MEDS: REMOVE OLD PATCH T-DERMAL SCH (21:00)
[2017-10-24] MEDS: CLOTRIMAZOLE 1% VAG CREAM 45 GM TUBE VAGINAL SCH (21:00)
[2017-10-25 03:36] VITALS: BP 113/77; PULSE 80; RESP 16; TEMP 97.7; O2SAT 97
[2017-10-25 03:45] VITALS: PULSE 92
[2017-10-25] MEDS: HALOPERIDOL 1 MG TAB PO SCH (05:04)
[2017-10-25 08:00] VITALS: BP 117/78; PULSE 86; RESP 12; TEMP 98.2; O2SAT 99
--- NOTE | 2017-10-25 08:56 | HHI.FPPN ---
Subjective Remarks Patient seen and examined this morning by medical team. No acute events overnight per nursing staff. During the interview, patient became very upset that she is being denied visitors due to her using her IV for "crushed up" hydrocodone medication during hospitalization. We thoroughly discussed that the medical team did not feel comfortable with visitors at this time as she could possibly receive further illicit drugs. She became increasingly upset and stated that she wanted to leave to go see her mother and sister. Ultimately , she decided at the end of the interview to leave AGAINST MEDICAL ADVICE. She was thoroughly educated on the severity of her diagnosis of endocarditis with all questions answered. She voiced verbal understanding of the risks involved leaving AGAINST MEDICAL ADVICE including but not limited to worsening endocarditis, septic embolization, and possible . After being counseled on all the above, she still elects to leave AGAINST MEDICAL ADVICE but would like to have her hydrocodone before she leaves. I informed her as well as her nurse that she was not to be administered any further medications as she is elected to leave AMA. (Chester Waldron MD R2) Objective Vitals Vital Signs Date Time Temp Pulse Resp B/P (MAP) Pulse Ox O2 Delivery O2 Flow Rate FiO2 10/25/17 03:45 92 10/25/17 03:36 97.7 80 16 113/77 (89) 97 10/24/17 23:56 92 10/24/17 23:51 98.3 91 16 112/73 (86) 98 10/24/17 21:35 21 10/24/17 20:00 Room Air 10/24/17 19:51 109 10/24/17 16:06 101 10/24/17 16:00 97.9 98 18 124/75 (91) 99 10/24/17 13:59 98 21 10/24/17 12:00 98 10/24/17 12:00 97.2 103 19 130/85 (100) 100 I/O 10/24/17 10/24/17 10/24/17 10/25/17 10/25/17 10/25/17 07:00 15:00 23:00 07:00 15:00 23:00 Intake Total 1050 ml 100 ml 1320 ml 670 ml Output Total 1300 ml 850 ml 600 ml Balance -250 ml 100 ml 470 ml 70 ml Intake Oral 1050 ml 1320 ml 670 ml IV Total 100 ml Output Urine Total 1300 ml 850 ml 600 ml # Bowel Movements 0 2 0 (Chester Waldron MD R2) Result Diagram: 10/23/1751910/23/17519 Objective Remarks GENERAL: Thin appearing female sitting up in bed watching TV in no acute distress. SKIN: Warm and dry. No rash. RUE: Per previous report, thrombus palpated in right upper extremity without erythema, warmth, or swelling. Not examined today. HEENT: Atraumatic, normocephalic with extraocular motions intact. No rhinorrhea. No visible lymphadenopathy or jugulovenous distension appreciated. CARDIOVASCULAR: Regular rate and rhythm without obvious murmurs, gallops, or rubs. 2+ pulses in all four extremities. RESPIRATORY: Clear to auscultation bilaterally with no crackles, wheezes, or rhonchi. No increased work of breathing. GASTROINTESTINAL: Abdomen soft, non-tender, nondistended with positive bowel sounds. No masses appreciated. MUSCULOSKELETAL: No cyanosis or edema. No calf tenderness. NEURO/PSYCH: Afocal. Awake, alert, and oriented x3. During interview patient became upset when discussing she is not allowed to have visitors. Initially her mood was sad, however this transitioned to anger by the end of the conversation. (Chester Waldron MD R2) A/P Assessment and Plan 41 year-old female with history of IV drug use and recent diagnosis of endocarditis with PICC line admitted for upper extremity DVT. Discharge Planning Patient has elected to leave AMA after thorough counseling. Informed the nursing staff as well as infectious disease. Patient is not to receive any further medications including hydrocodone as she is leaving AGAINST MEDICAL ADVICE. (Chester Waldron MD R2) Problem List: (1) Endocarditis ICD Codes: I38 - Endocarditis, valve unspecified Status: Acute Plan: 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 Patient had been receiving IV antibiotics via PICC line at the infusion clinic. PICC line abused as outpatient and removed during this admission. Microbiology: * Blood cultures 10/17: Lactobacillus species * Blood culture 10/20: no growth up to date Medications: * Ceftriaxone 2 g IV every 24h. (10/18- 10/25) Consults: * Infectious disease: * Patient known to Dr. Knowles. Dr. Javier, currently covering for Dr. Knowles , informed of patient leaving AMA. (2) Deep venous thrombosis of right upper extremity ICD Codes: I82.621 - Acute embolism and thrombosis of deep veins of right upper extremity Status: Acute Plan: On admission, patient presenting with upper extremity pain. Upper extremity ultrasound positive for occlusive thrombus in right arm. PICC line removed shortly after admission. Medications: * Xarelto 15 mg BID. * Roxicodone 5mg PO q4 PRN pain 3-5. * Roxicodone 10mg PO q4 PRN pain 6-10. * Avoid IV pain medication -Encouraged patient to follow-up with PCP for continued anticoagulation as she is leaving AMA. (3) Clostridium difficile diarrhea ICD Codes: A04.72 - Enterocolitis due to Clostridium difficile, not specified as recurrent Status: Acute Plan: Patient reports one week history of watery, nonbloody diarrhea. Patient currently on antibiotic therapy for endocarditis. Labs: * C. difficile Tox PCR: Positive * C. difficile Tox Epid 027: Presumptive Positive Microbiology: * Hemoccult: negative. * Stool studies: negative. Medications: * Oral vancomycin 125mg PO QID (10/21-10/25). (4) Sepsis ICD Codes: A41.9 - Sepsis, unspecified organism Status: Resolved Plan: On admission, patient met sepsis criteria with elevated WBC of 13.5 and tachycardia up to 118 plus known source. Resolved. * Source treated as above. (5) IVDU (intravenous drug user) ICD Codes: F19.90 - Other psychoactive substance use, unspecified, uncomplicated Status: Chronic Plan: Patient admits to IV Dilaudid and cocaine use. On admission, UDS positive for amphetamines, cocaine, cannabinoids. Patient positive for hep C on 09/23/17. Patient nonreactive for HIV on 09/23/17. Patient admits to crushing and putting one oxycodone tablet into IV overnight. Nursing protocol initiated. Patient threatening to leave AMA. Pain medication will not be increased at this time; there is no medical necessity to increase pain medication. (6) Withdrawal syndrome ICD Codes: F19.939 - Other psychoactive substance use, unspecified with withdrawal, unspecified Status: Chronic Plan: Patient placed on CIWA protocol. Patient was seen and evaluated by psychiatry during hospital admission on . Patient was considered delirious due to polysubstance abuse. Patient received Haldol 1 mg twice daily to help with psychosis and behavioral control. Medications: * Haldol 1mg BID. * Seroquel 25mg at 0900, 1400 and 50mg QHS Encourage patient to avoid illicit drug use at the time of her AMA discharge (7) Hepatitis C ICD Codes: B19.20 - Unspecified viral hepatitis C without hepatic coma Status: Chronic Plan: Patient positive for hep C on 09/23/17. Will need outpatient treatment, patient informed (8) Hypokalemia ICD Codes: E87.6 - Hypokalemia Status: Resolved Plan: On admission, Potassium 3.1. Hypokalemia resolved as of 10/19. (9) Vaginal yeast infection ICD Codes: B37.3 - Candidiasis of vulva and vagina Status: Acute Plan: Patient has reported continued vaginal itching. She was recently treated for a yeast infection. Medications: * Clotrimazole 1% vaginal cream for 7 days (10/20-10/25). (10) Nutrition, metabolism, and development symptoms ICD Codes: R63.8 - Other symptoms and signs concerning food and fluid intake Status: Acute Plan: Fluids: * Tolerates PO. Nutrition: * Regular basic w/ Ensure. Electrolytes: * Monitor and replete as necessary. DVTprophylaxis: * Xarelto. * SCDs. (Chester Wladron MD R2) Problem List: (1) Endocarditis ICD Codes: I38 - Endocarditis, valve unspecified Status: Acute Plan: 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 Patient had been receiving IV antibiotics via PICC line at the infusion clinic. PICC line abused as outpatient and removed during this admission. Microbiology: * Blood cultures 10/17: Lactobacillus species * Blood culture 10/20: no growth up to date Medications: * Ceftriaxone 2 g IV every 24h. (10/18- 10/25) Consults: * Infectious disease: * Patient known to Dr. Knowles. Dr. Javier, currently covering for Dr. Knowles , informed of patient leaving AMA. (2) Deep venous thrombosis of right upper extremity ICD Codes: I82.621 - Acute embolism and thrombosis of deep veins of right upper extremity Status: Acute Plan: On admission, patient presenting with upper extremity pain. Upper extremity ultrasound positive for occlusive thrombus in right arm. PICC line removed shortly after admission. Medications: * Xarelto 15 mg BID. * Roxicodone 5mg PO q4 PRN pain 3-5. * Roxicodone 10mg PO q4 PRN pain 6-10. * Avoid IV pain medication -Encouraged patient to follow-up with PCP for continued anticoagulation as she is leaving AMA. (3) Clostridium difficile diarrhea ICD Codes: A04.72 - Enterocolitis due to Clostridium difficile, not specified as recurrent Status: Acute Plan: Patient reports one week history of watery, nonbloody diarrhea. Patient currently on antibiotic therapy for endocarditis. Labs: * C. difficile Tox PCR: Positive * C. difficile Tox Epid 027: Presumptive Positive Microbiology: * Hemoccult: negative. * Stool studies: negative. Medications: * Oral vancomycin 125mg PO QID (10/21-10/25). (4) Sepsis ICD Codes: A41.9 - Sepsis, unspecified organism Status: Resolved Plan: On admission, patient met sepsis criteria with elevated WBC of 13.5 and tachycardia up to 118 plus known source. Resolved. * Source treated as above. (5) IVDU (intravenous drug user) ICD Codes: F19.90 - Other psychoactive substance use, unspecified, uncomplicated Status: Chronic Plan: Patient admits to IV Dilaudid and cocaine use. On admission, UDS positive for amphetamines, cocaine, cannabinoids. Patient positive for hep C on 09/23/17. Patient nonreactive for HIV on 09/23/17. Patient admits to crushing and putting one oxycodone tablet into IV overnight. Nursing protocol initiated. Patient threatening to leave AMA. Pain medication will not be increased at this time; there is no medical necessity to increase pain medication. (6) Withdrawal syndrome ICD Codes: F19.939 - Other psychoactive substance use, unspecified with withdrawal, unspecified Status: Chronic Plan: Patient placed on CIWA protocol. Patient was seen and evaluated by psychiatry during hospital admission on . Patient was considered delirious due to polysubstance abuse. Patient received Haldol 1 mg twice daily to help with psychosis and behavioral control. Medications: * Haldol 1mg BID. * Seroquel 25mg at 0900, 1400 and 50mg QHS Encourage patient to avoid illicit drug use at the time of her AMA discharge (7) Hepatitis C ICD Codes: B19.20 - Unspecified viral hepatitis C without hepatic coma Status: Chronic Plan: Patient positive for hep C on 09/23/17. Will need outpatient treatment, patient informed (8) Hypokalemia ICD Codes: E87.6 - Hypokalemia Status: Resolved Plan: On admission, Potassium 3.1. Hypokalemia resolved as of 10/19. (9) Vaginal yeast infection ICD Codes: B37.3 - Candidiasis of vulva and vagina Status: Acute Plan: Patient has reported continued vaginal itching. She was recently treated for a yeast infection. Medications: * Clotrimazole 1% vaginal cream for 7 days (10/20-10/25). (10) Nutrition, metabolism, and development symptoms ICD Codes: R63.8 - Other symptoms and signs concerning food and fluid intake Status: Acute Plan: Fluids: * Tolerates PO. Nutrition: * Regular basic w/ Ensure. Electrolytes: * Monitor and replete as necessary. DVTprophylaxis: * Xarelto. * SCDs. * See the residents documentation for details. I saw and evaluated the patient regarding the rodriges portions of this evaluation and agree with the residents findings and plans as written. Parts of this note were created using [employer] voice recognition software program. While efforts were made to correct any mistakes made by this software, some mistakes, errors, and omissions may remain in the final note that were not caught when the note was originally created. Plan of care was discussed and agreed upon with the patient as specifically documented in the above note. An opportunity to ask questions with explanation was provided. Patient voiced understanding on all information reviewed and discussed. (Aramis Garcia MD) Problem Qualifiers (1) Endocarditis: (2) Deep venous thrombosis of right upper extremity: Qualified Codes: I82.A11 - Acute embolism and thrombosis of right axillary vein Chester Waldron MD R2 Oct 25, 2017 08:56 Aramis Garcia MD Oct 28, 2017 10:55
--- NOTE | 2017-10-25 09:07 | HHI.DS ---
Discharge Summary Admission Date October 17, 2017 at 10:14 Discharge Date: Oct 25, 2017 Admitting Diagnosis (1) Endocarditis Diagnosis: Principal Plan: 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 Patient had been receiving IV antibiotics via PICC line at the infusion clinic. PICC line abused as outpatient and removed during this admission. Microbiology: * Blood cultures 10/17: Lactobacillus species * Blood culture 10/20: no growth up to date Medications: * Ceftriaxone 2 g IV every 24h. (10/18- ) Consults: * Infectious disease: * Patient known to Dr. Knowles. * Per Dr. Knowles: Continue on IV Ceftriaxone. Will likely need to stay in hospital to complete therapy since she is non compliant and has abused her PICC line. ICD Codes: I38 - Endocarditis, valve unspecified Status: Acute (2) Deep venous thrombosis of right upper extremity Diagnosis: Principal Plan: On admission, patient presenting with upper extremity pain. Upper extremity ultrasound positive for occlusive thrombus in right arm. PICC line removed shortly after admission. Medications: * Xarelto 15 mg BID. * Roxicodone 5mg PO q4 PRN pain 3-5. * Roxicodone 10mg PO q4 PRN pain 6-10. * Avoid IV pain medication ICD Codes: I82.621 - Acute embolism and thrombosis of deep veins of right upper extremity Status: Acute (3) Clostridium difficile diarrhea Diagnosis: Principal Plan: Patient reports one week history of watery, nonbloody diarrhea. Patient currently on antibiotic therapy for endocarditis. Labs: * C. difficile Tox PCR: Positive * C. difficile Tox Epid 027: Presumptive Positive Microbiology: * Hemoccult: negative. * Stool studies: negative. Medications: * Oral vancomycin 125mg PO QID (10/21-). ICD Codes: A04.72 - Enterocolitis due to Clostridium difficile, not specified as recurrent Status: Acute (4) Sepsis Diagnosis: Principal Plan: On admission, patient met sepsis criteria with elevated WBC of 13.5 and tachycardia up to 118 plus known source. Resolved. * Source treated as above. ICD Codes: A41.9 - Sepsis, unspecified organism Status: Resolved (5) IVDU (intravenous drug user) Diagnosis: Principal Plan: Patient admits to IV Dilaudid and cocaine use. On admission, UDS positive for amphetamines, cocaine, cannabinoids. Patient positive for hep C on 09/23/17. Patient nonreactive for HIV on 09/23/17. Patient admits to crushing and putting one oxycodone tablet into IV overnight. Nursing protocol initiated. Patient threatening to leave AMA. Pain medication will not be increased at this time; there is no medical necessity to increase pain medication. ICD Codes: F19.90 - Other psychoactive substance use, unspecified, uncomplicated Status: Chronic (6) Withdrawal syndrome Diagnosis: Principal Plan: Patient placed on CIWA protocol. Patient was seen and evaluated by psychiatry during hospital admission on . Patient was considered delirious due to polysubstance abuse. Patient received Haldol 1 mg twice daily to help with psychosis and behavioral control. Medications: * Haldol 1mg BID. * Seroquel 25mg at 0900, 1400 and 50mg QHS ICD Codes: F19.939 - Other psychoactive substance use, unspecified with withdrawal, unspecified Status: Chronic (7) Hepatitis C Diagnosis: Secondary Plan: Patient positive for hep C on 09/23/17. Will need outpatient treatment. ICD Codes: B19.20 - Unspecified viral hepatitis C without hepatic coma Status: Chronic (8) Hypokalemia Diagnosis: Secondary Plan: On admission, Potassium 3.1. Hypokalemia resolved as of 10/19. ICD Codes: E87.6 - Hypokalemia Status: Resolved (9) Vaginal yeast infection Diagnosis: Secondary Plan: Patient has reported continued vaginal itching. She was recently treated for a yeast infection. Medications: * Clotrimazole 1% vaginal cream for 7 days (10/20-). ICD Codes: B37.3 - Candidiasis of vulva and vagina Status: Acute (10) Nutrition, metabolism, and development symptoms Diagnosis: Secondary Plan: Fluids: * Tolerates PO. Nutrition: * Regular basic w/ Ensure. Electrolytes: * Monitor and replete as necessary. DVTprophylaxis: * Xarelto. * SCDs. ICD Codes: R63.8 - Other symptoms and signs concerning food and fluid intake Status: Acute Brief History 41-year-old female presenting to the emergency department with right upper extremity swelling and pain at the site of her PICC line and found to have an upper extremity DVT. She has a PICC line placed for treatment of endocarditis that is secondary to IV drug use. She was discharged from the hospital on with a PICC line in place in order to receive Rocephin to treat her group A beta strep endocarditis. Since her discharge, she has been using the PICC line for IV drugs including cocaine and Dilaudid. Over the last several days, she has noticed swelling and pain in the right upper extremity that has been progressively getting worse which has caused her to come to the emergency department. She endorses right upper arm pain worse with movement, occasional sharp, shooting chest pains worse with deep breaths as well as subjective fevers. She denies nausea or vomiting, she denies chills, she denies headaches , she denies vision changes, she denies back/neck pain. CBC/BMP: 10/23/17 0520 10/23/17 0520 Significant Findings Laboratory Tests Test 10/23/17 05:20 Hemoglobin 10.2 GM/DL (11.6-15.3) Hematocrit 32.0 % (35.0-46.0) Mean Corpuscular Volume 73.5 FL (80.0-100.0) Mean Corpuscular Hemoglobin 23.4 PG (27.0-34.0) Mean Corpuscular Hemoglobin Concent 31.9 % (32.0-36.0) PE at Discharge GENERAL: Thin appearing female sitting up in bed watching TV in no acute distress. SKIN: Warm and dry. No rash. RUE: Per previous report, thrombus palpated in right upper extremity without erythema, warmth, or swelling. HEENT: Atraumatic, normocephalic with extraocular motions intact. No rhinorrhea. No visible lymphadenopathy or jugulovenous distension appreciated. CARDIOVASCULAR: Regular rate and rhythm without obvious murmurs, gallops, or rubs. 2+ pulses in all four extremities. RESPIRATORY: Clear to auscultation bilaterally with no crackles, wheezes, or rhonchi. No increased work of breathing. GASTROINTESTINAL: Abdomen soft, non-tender, nondistended with positive bowel sounds. No masses appreciated. MUSCULOSKELETAL: No cyanosis or edema. No calf tenderness. NEURO/PSYCH: Afocal. Awake, alert, and oriented x3. Normal speech and judgement. Hospital Course Patient was admitted for treatment of her endocarditis. Infectious disease consulted and recommended treatment with ceftriaxone IV. Patient's PICC line was pulled due to IV drug abuse as an outpatient. She had a resulting DVT and was started on anticoagulation. Patient also presented with diarrhea and was ultimately found to be Clostridium difficile positive. She was started on oral vancomycin therapy. During her hospitalization the patient admitted to crushing a hydrocodone and placing the residue in her IV that was later flushed by a nurse. Due to this all visitors were suspended as she was suspected to be receiving illicit drugs from her visitors. On hospital day 8, due to not having visitors, the patient has signed out AGAINST MEDICAL ADVICE. She was thoroughly educated on the risks of signing out AGAINST MEDICAL ADVICE including but not limited to infectious endocarditis, septic emboli, as well as possible . She voiced understanding of her disease process and the risk associated. Due to her repeated noncompliance and behavior, Ms. Webster is not to be admitted to the Family [facility] Residency Service per attending physician. Pt Condition on Discharge: Guarded Chester Waldron MD R2 Oct 25, 2017 09:07
[2017-11-08] MEDS ORDERED: RIVAROXABAN 20 MG TAB PO SCH (09:00)
== END 2017-10-25 09:51 | disposition left against medical advice (07) | DRG 314 ==
LOC: NEPC 05:06 → NEDA 10:14 → HCIS 11:55 → N04B 10-18 17:10
PROVIDERS: ADMIT Family Medicine; ATTEND Family Medicine
DX: T82.868A Thrombosis due to vascular prosthetic devices, implants and grafts, initial encounter (principal); I33.0 Acute and subacute infective endocarditis; R65.20 Severe sepsis without septic shock; I63.9 Cerebral infarction, unspecified; I76 Septic arterial embolism; G93.41 Metabolic encephalopathy; A41.9 Sepsis, unspecified organism; A04.72 Enterocolitis due to Clostridium difficile, not specified as recurrent; I82.621 Acute embolism and thrombosis of deep veins of right upper extremity; M00.9 Pyogenic arthritis, unspecified; R64 Cachexia; Z68.1 Body mass index [BMI] 19.9 or less, adult; E87.1 Hypo-osmolality and hyponatremia; F19.239 Other psychoactive substance dependence with withdrawal, unspecified; N28.0 Ischemia and infarction of kidney; E78.5 Hyperlipidemia, unspecified; F32.9 Major depressive disorder, single episode, unspecified; B19.20 Unspecified viral hepatitis C without hepatic coma; E87.6 Hypokalemia; G47.00 Insomnia, unspecified; B37.3 Candidiasis of vulva and vagina; B95.5 Unspecified streptococcus as the cause of diseases classified elsewhere; F17.210 Nicotine dependence, cigarettes, uncomplicated; F41.9 Anxiety disorder, unspecified; F43.25 Adjustment disorder with mixed disturbance of emotions and conduct; Y84.8 Other medical procedures as the cause of abnormal reaction of the patient, or of later complication, without mention of misadventure at the time of the procedure; Z59.0 Homelessness; Z91.19 Patient's noncompliance with other medical treatment and regimen
CPT/HCPCS: 71045; 76937; 80048; 80053; 80202; 80307; 82272; 83605; 85007; 85025; 85027; 85610; 85730; 87040; 87205; 87207; 87328; 87329; 87493; 87506; 93005; 93971; 94150; G0481; J0696; J1644; J2060; J2270; J3370; J7030; J7050

== ENCOUNTER 2017-11-15 21:53 | Observation (INO) | END 2017-11-16 17:14 | disposition left against medical advice (07) | LOC: NEPGCP 21:53 | PROVIDERS: ADMIT Hospitalist; ATTEND Hospitalist ==

== ENCOUNTER 2018-02-28 01:57 | Observation (INO) ==
[2018-02-28] MEDS ORDERED: Sod Chloride 0.9% Inj 1,000 ML IV.SIG ONE (02:48)
[2018-02-28] MEDS ORDERED: Piperacil/Tazo 4.5 GM Premix 4.5 GM/100 ML BAG IV.SIG ONE (02:51)
[2018-02-28] MEDS ORDERED: Vancomycin Inj 1,000 MG in Sodium Chlor 0.9% Inj 250 ML IV.SIG ONE (02:51)
--- NOTE | 2018-02-28 02:53 | ED ---
HPI General Chief Complaint: Fever Stated Complaint: poss fever Time Seen by Provider: 02/28/18 02:45 Source: patient Mode of arrival: ambulatory Limitations: no limitations History of Present Illness HPI Narrative: 42-year-old female with history of heroin and opiate abuse and prior diagnosis of infective endocarditis that was treated with hospitalization and an outpatient IV antibiotics presents for complaint of recurrent fever chills and feeling poorly. Patient states she has had fever over the last few days with decreased appetite poor oral intake and generalized weakness. Patient admits to ongoing use of IV heroin and cocaine abuse. Patient was diagnosed in the summer with bacterial endocarditis and did not complete her regimen of antibiotic therapy as she was found to abuse her PICC line to inject IV drugs this PICC line was removed. Patient was hospitalized again and then left AGAINST MEDICAL ADVICE as she could not get such as heroin and cocaine while in the hospital. Patient denies any upper extremity lower extremity numbness tingling or weakness but does complain of some back pain and flank pain. Patient's had no injury or fall. Patient reports that she took antipyretic prior to arrival to the emergency department. MD complaint: Reports fever Onset (ago): day(s) Temperature Source: subjective Context: Reports sick contacts; Denies other(s) with similar symptoms, recent travel and recent antibiotic use Associated symptoms: Reports chills, rigors, headache, cough, nausea and weight loss Relieving factors: nothing Exacerbating factors: nothing Treatments prior to arrival fever: Reports acetaminophen Related Data Home Medications Medication Instructions Recorded Confirmed No Known Home Medications 12/18/17 02/28/18 Allergies Allergy/AdvReac Type Severity Reaction Status Date / Time No Known Allergies Allergy Verified 02/28/18 02:02 Review of Systems ROS: all other systems reviewed are negative FOR[facility]LY [facility] Medical History Medical History Endocarditis (Acute) Hepatitis C (Acute) IV drug abuse (Acute) Laceration of kidney (Acute) Surgical History Surgical History Hx of hand surgery (Acute) Social History Social History Substance History: Active Abuse Second Hand Smoke Exposure: Yes Smoking Status: Current every day smoker Tobacco Type: Cigarettes How Often Do You Have a Drink Containing Alcohol: Never Recent Travel in [facility] within the Last 8 Weeks: No Recent Out of Country Travel within the Last 8 Weeks: No Substance Abuse Detail Methamphetamine: Substance Use Status: Active Route Used Substance Abuse: Intravenously Crack/Cocaine: Substance Use Status: Active Route Used Substance Abuse: Intravenously Heroin: Substance Use Status: Active Route Used Substance Abuse: Intravenously Immunization History Tetanus Immunization: Unsure Exam Narrative Exam Narrative: GENERAL: Well-nourished, well-developed patient. Disheveled ill -appearing female in no respiratory distress SKIN: Focused skin assessment warm/dry. Multiple IV injection scars noted to the upper extremities and lower extremities diffusely. HEAD: Normocephalic. EYES: No scleral icterus. No injection or drainage. NECK: Supple, trachea midline. No JVD or lymphadenopathy. CARDIOVASCULAR: Increased regular rate and rhythm without murmurs, gallops, or rubs. RESPIRATORY: Breath sounds equal bilaterally. No accessory muscle use. GASTROINTESTINAL: Abdomen soft, non-tender, nondistended. MUSCULOSKELETAL: No cyanosis, or edema. BACK: Nontender without obvious deformity. No CVA tenderness. Course Initial Documented Vital Signs Temperature 98.0 F 02/28/18 02:02 Pulse Rate 108 H 02/28/18 02:02 Respiratory Rate 16 02/28/18 02:02 Blood Pressure 138/78 02/28/18 02:02 Pulse Oximetry 100 02/28/18 02:02 Last Documented Vital Signs Temperature 97.9 F 02/28/18 02:40 Pulse Rate 77 02/28/18 05:00 Respiratory Rate 16 02/28/18 05:00 Blood Pressure 122/69 02/28/18 05:00 Pulse Oximetry 99 02/28/18 05:00 Medical Decision Making [facility] Narrative Medical decision making narrative: 42-year-old female IV drug abuser presents to the emergency department for generalized weakness not feeling well complaint of fever and chills cough and congestion and history of endocarditis with only partial treatment. Patient states that she has been grossly worsened over the past 3 days with poor oral intake due to generalized weakness. Patient placed on secured entrance monitor with IV access bolus with normal saline blood cultures and lactic acid obtained and patient presumptively treated with Zosyn and vancomycin Chest x-ray shows left lower lobe infiltrate Patient identified to have patient identified to have elevated lactic acid of 3.3 Plan will be to admit patient for sepsis hypokalemia of 2.9 given oral potassium replacement as well as IV potassium replacement Pneumonia and polysubstance abuse; patient discussed with Dr Hubbard. Medical Screen Exam Complete: Yes Emergency Medical Condition: Yes Differential Diagnosis Differential Diagnosis: Febrile illness, polysubstance abuse, sepsis, pneumonia , endocarditis, epidural abscess, UTI Medical Records Medical records reviewed: Yes I reviewed the patient's medical records. Lab Data Lab results reviewed: Yes I reviewed the patient's lab results. Result diagrams: 02/28/18 02:50 02/28/18 02:50 Lab Results 02/28/18 02/28/18 02/28/18 Range/Units 02:47 02:50 02:50 WBC 10.5 (4.0-11.0) th/mm3 RBC 4.55 (4.00-5.30) mil/mm3 Hgb 10.4 L (11.6-15.3) gm/dL Hct 31.9 L (35.0-46.0) % MCV 70.1 L (80.0-100.0) fL MCH 22.8 L (27.0-34.0) pg MCHC 32.6 (32.0-36.0) % RDW 17.6 H (11.6-17.2) % Plt Count 330 (150-450) th/mm3 MPV 7.9 (7.0-11.0) fL Neut % (Auto) 87.4 H (16.0-70.0) % Lymph % (Auto) 6.1 L (9.0-44.0) % Talbot % (Auto) 6.0 (0.0-8.0) % Eos % (Auto) 0.0 (0.0-4.0) % Baso % (Auto) 0.5 (0.0-2.0) % Neut # (Auto) 9.2 H (1.8-7.7) th/mm3 Lymph # (Auto) 0.6 L (1.0-4.8) th/mm3 Talbot # (Auto) 0.6 (0.0-0.9) th/mm3 Eos # (Auto) 0.0 (0.0-0.4) th/mm3 Baso # (Auto) 0.1 (0.0-0.2) th/mm3 WBC Differential . Differential Comment Auto diff final Sodium 132 L (136-145) meq/L Potassium 2.9 L* (3.5-5.1) meq/L Chloride 94 L (98-107) meq/L Carbon Dioxide 26.7 (21.0-32.0) meq/L Anion Gap 11 (5-15) meq/L BUN 15 (7-18) mg/dL Creatinine 1.20 H (0.50-1.00) mg/dL Estimated GFR 50 L (>89) mL/min POC Glucose 192 H (68-110) mg/dl Random Glucose 175 H (74-106) mg/dL Lactic Acid (0.4-2.0) mmol/L Calcium 7.9 L (8.5-10.1) mg/dL Total Bilirubin 0.3 (0.2-1.0) mg/dL AST 51 H (15-37) U/L ALT 45 (10-53) U/L Alkaline Phosphatase 95 (45-117) U/L Troponin I 0.05 (0.02-0.05) ng/mL Total Protein 8.1 (6.4-8.2) g/dL Albumin 2.6 L (3.4-5.0) g/dL Lipase 80 (73-393) U/L Urine Color (Yellw/Straw) Urine Clarity (Clear) Urine pH (5.0-8.5) Ur Specific Roll[place] (1.002-1.035) Urine Protein (Neg-Trace) mg/dL Urine Glucose (UA) (Negative) mg/dL Urine Ketones (Negative) mg/dL Urine Occult Blood (Negative) Urine Nitrate (Negative) Urine Bilirubin (Negative) Urine Urobilinogen (Less than 2) mg/dL Ur Leukocyte Esterase (Negative) Urine RBC (0-3) /hpf Urine WBC (0-5) /hpf Ur Squamous Epith Cells (0-5) /hpf Urine Bacteria (None) /hpf Urine Mucus (Occasional) /lpf Micro UA Comment Ur Microscopic Review Urine Culture Comments Urine Opiates Screen (Neg) Ur Barbiturates Screen (Neg) Ur Amphetamines Screen (Neg) U Benzodiazepines Scrn (Neg) Urine Cocaine Screen (Neg) U Cannabinoids Screen (Neg) Serum Alcohol Less than 3 (0-5) mg/dL 10/12/18 10/12/18 10/12/18 Range/Units 03:00 03:00 03:00 WBC (4.0-11.0) th/mm3 RBC (4.00-5.30) mil/mm3 Hgb (11.6-15.3) gm/dL Hct (35.0-46.0) % MCV (80.0-100.0) fL MCH (27.0-34.0) pg MCHC (32.0-36.0) % RDW (11.6-17.2) % Plt Count (150-450) th/mm3 MPV (7.0-11.0) fL Neut % (Auto) (16.0-70.0) % Lymph % (Auto) (9.0-44.0) % Talbot % (Auto) (0.0-8.0) % Eos % (Auto) (0.0-4.0) % Baso % (Auto) (0.0-2.0) % Neut # (Auto) (1.8-7.7) th/mm3 Lymph # (Auto) (1.0-4.8) th/mm3 Talbot # (Auto) (0.0-0.9) th/mm3 Eos # (Auto) (0.0-0.4) th/mm3 Baso # (Auto) (0.0-0.2) th/mm3 WBC Differential Differential Comment Sodium (136-145) meq/L Potassium (3.5-5.1) meq/L Chloride (98-107) meq/L Carbon Dioxide (21.0-32.0) meq/L Anion Gap (5-15) meq/L BUN (7-18) mg/dL Creatinine (0.50-1.00) mg/dL Estimated GFR (>89) mL/min POC Glucose (68-110) mg/dl Random Glucose (74-106) mg/dL Lactic Acid 3.3 H (0.4-2.0) mmol/L Calcium (8.5-10.1) mg/dL Total Bilirubin (0.2-1.0) mg/dL AST (15-37) U/L ALT (10-53) U/L Alkaline Phosphatase (45-117) U/L Troponin I (0.02-0.05) ng/mL Total Protein (6.4-8.2) g/dL Albumin (3.4-5.0) g/dL Lipase (73-393) U/L Urine Color Straw (Yellw/Straw) Urine Clarity Clear (Clear) Urine pH 5.0 (5.0-8.5) Ur Specific Roll[place] 1.006 (1.002-1.035) Urine Protein Negative (Neg-Trace) mg/dL Urine Glucose (UA) 50 (Negative) mg/dL Urine Ketones Negative (Negative) mg/dL Urine Occult Blood Small H (Negative) Urine Nitrate Negative (Negative) Urine Bilirubin Negative (Negative) Urine Urobilinogen Less than 2 (Less than 2) mg/dL Ur Leukocyte Esterase Small H (Negative) Urine RBC Less than 1 (0-3) /hpf Urine WBC 4 (0-5) /hpf Ur Squamous Epith Cells 3 (0-5) /hpf Urine Bacteria Rare H (None) /hpf Urine Mucus Few H (Occasional) /lpf Micro UA Comment Culture not ind Ur Microscopic Review Not Reportable Urine Culture Comments Culture not ind Urine Opiates Screen Pos H (Neg) Ur Barbiturates Screen Neg (Neg) Ur Amphetamines Screen Neg (Neg) U Benzodiazepines Scrn Neg (Neg) Urine Cocaine Screen Pos H (Neg) U Cannabinoids Screen Neg (Neg) Serum Alcohol (0-5) mg/dL 02/28/18 Range/Units 05:25 WBC (4.0-11.0) th/mm3 RBC (4.00-5.30) mil/mm3 Hgb (11.6-15.3) gm/dL Hct (35.0-46.0) % MCV (80.0-100.0) fL MCH (27.0-34.0) pg MCHC (32.0-36.0) % RDW (11.6-17.2) % Plt Count (150-450) th/mm3 MPV (7.0-11.0) fL Neut % (Auto) (16.0-70.0) % Lymph % (Auto) (9.0-44.0) % Talbot % (Auto) (0.0-8.0) % Eos % (Auto) (0.0-4.0) % Baso % (Auto) (0.0-2.0) % Neut # (Auto) (1.8-7.7) th/mm3 Lymph # (Auto) (1.0-4.8) th/mm3 Talbot # (Auto) (0.0-0.9) th/mm3 Eos # (Auto) (0.0-0.4) th/mm3 Baso # (Auto) (0.0-0.2) th/mm3 WBC Differential Differential Comment Sodium (136-145) meq/L Potassium (3.5-5.1) meq/L Chloride (98-107) meq/L Carbon Dioxide (21.0-32.0) meq/L Anion Gap (5-15) meq/L BUN (7-18) mg/dL Creatinine (0.50-1.00) mg/dL Estimated GFR (>89) mL/min POC Glucose (68-110) mg/dl Random Glucose (74-106) mg/dL Lactic Acid 0.9 (0.4-2.0) mmol/L Calcium (8.5-10.1) mg/dL Total Bilirubin (0.2-1.0) mg/dL AST (15-37) U/L ALT (10-53) U/L Alkaline Phosphatase (45-117) U/L Troponin I (0.02-0.05) ng/mL Total Protein (6.4-8.2) g/dL Albumin (3.4-5.0) g/dL Lipase (73-393) U/L Urine Color (Yellw/Straw) Urine Clarity (Clear) Urine pH (5.0-8.5) Ur Specific [place] (1.002-1.035) Urine Protein (Neg-Trace) mg/dL Urine Glucose (UA) (Negative) mg/dL Urine Ketones (Negative) mg/dL Urine Occult Blood (Negative) Urine Nitrate (Negative) Urine Bilirubin (Negative) Urine Urobilinogen (Less than 2) mg/dL Ur Leukocyte Esterase (Negative) Urine RBC (0-3) /hpf Urine WBC (0-5) /hpf Ur Squamous Epith Cells (0-5) /hpf Urine Bacteria (None) /hpf Urine Mucus (Occasional) /lpf Micro UA Comment Ur Microscopic Review Urine Culture Comments Urine Opiates Screen (Neg) Ur Barbiturates Screen (Neg) Ur Amphetamines Screen (Neg) U Benzodiazepines Scrn (Neg) Urine Cocaine Screen (Neg) U Cannabinoids Screen (Neg) Serum Alcohol (0-5) mg/dL Imaging Data Radiologist's impression: Chest X-Ray 02/28/18 02:48 CONCLUSION: Small infiltrate left lung base. ECG Data EKG Prior to Arrival: No Prior ECG tracings: not available for review Interpretation: EKG: Normal sinus rhythm rate [address] elevation LVH by voltage criterion Discharge Plan Discharge Disposition Patient Disposition: 30 Still Patient Discharge Condition Condition: Stable Discharge Details Diagnosis: Pneumonia, Sepsis, Hypokalemia Physicians Team ED Provider: Deepa Dunham Primary Care Provider: Primary Care Ambika Leal Attending Provider: Mark Garay Status ED Status: Admitted Observation Patient
[2018-02-28 03:13] LABS: Baso # (Auto) 0.1 th/mm3 (0.0-0.2); Baso % (Auto) 0.5 % (0.0-2.0); Hematocrit 31.9 % (35.0-46.0); Hemoglobin 10.4 gm/dL (11.6-15.3); Lymph # (Auto) 0.6 th/mm3 (1.0-4.8); Lymph % (Auto) 6.1 % (9.0-44.0); Mean Corpuscular HGB Conc 32.6 % (32.0-36.0); Mean Corpuscular Hemoglobin 22.8 pg (27.0-34.0); Mean Corpuscular Volume 70.1 fL (80.0-100.0); Mean Platelet Volume 7.9 fL (7.0-11.0); Mono # (Auto) 0.6 th/mm3 (0.0-0.9); Neut # (Auto) 9.2 th/mm3 (1.8-7.7); Neut % (Auto) 87.4 % (16.0-70.0); Platelet Count 330 th/mm3 (150-450); Red Blood Count 4.55 mil/mm3 (4.00-5.30); Red Cell Distribution Width 17.6 % (11.6-17.2); White Blood Count 10.5 th/mm3 (4.0-11.0)
[2018-02-28 03:17] LABS: Bacteria,Urine Rare /hpf; Bilirubin,Urine Negative (Negative); Clarity,Urine Clear (Clear); Color,Urine Straw (Yellw/Straw); Glucose,Urine (UA) 50 mg/dL (Negative); Leukocyte Esterase,Urine Small (Negative); Mucus,Urine Few /lpf (Occasional); Nitrite,Urine Negative (Negative); Specific Gravity,Urine 1.006 (1.002-1.035); Squamous Epithelial Cell,Urine 3 /hpf (0-5)
[2018-02-28 03:22] LABS: Amphetamine Screen,Urine Neg (Neg); Barbiturate Screen,Urine Neg (Neg); Cannabinoid Screen,Urine Neg (Neg); Cocaine Screen,Urine Pos (Neg)
[2018-02-28 03:23] LABS: Opiate Screen,Urine Pos (Neg)
--- NOTE | 2018-02-28 03:25 | XR ---
EXAM DATE: 02/28/2018 2:48 AM EDT AGE/SEX: 42 years / Female INDICATIONS: Fever, shortness of breath for 24 hours CLINICAL DATA: This is the patient's initial encounter. Patient reports that signs and symptoms have been present for 1 day and indicates a pain score of 5/10. MEDICAL/SURGICAL HISTORY: . Pericarditis. Endocarditis. Transient ischemic attack. Cerebrovascu lar accident None. COMPARISON: [facility] – [place], CHEST 1V SINGLE AP, 12/18/2017. . FINDINGS: There is a small focal area of airspace disease at the left lung base most characteristic of bronchop neumonia. Right lung clear. Heart size normal. No pneumothorax or effusion. CONCLUSION: Small infiltrate left lung base. Electronically signed by: Roge Short MD 02/28/2018 3:24 AM EDT
[2018-02-28 03:32] LABS: Alanine Aminotransferase 45 U/L (10-53); Albumin 2.6 g/dL (3.4-5.0); Alkaline Phosphatase 95 U/L (45-117); Anion Gap 11 meq/L (5-15); Aspartate Aminotransferase 51 U/L (15-37); Blood Urea Nitrogen 15 mg/dL (7-18); Calcium 7.9 mg/dL (8.5-10.1); Carbon Dioxide 26.7 meq/L (21.0-32.0); Chloride 94 meq/L (98-107); Glomerular Filtration Rate 50 mL/min (>89); Glucose,Random 175 mg/dL (74-106); Lipase 80 U/L (73-393); Sodium 132 meq/L (136-145); Total Protein 8.1 g/dL (6.4-8.2); Troponin I 0.05 ng/mL (0.02-0.05)
[2018-02-28 03:37] LABS: Potassium 2.9 meq/L (3.5-5.1)
[2018-02-28] MEDS ORDERED: Potassium Chlor 10 mEq Premix 10 MEQ/100 ML PIGGYBACK IV.SIG ONE (03:52)
[2018-02-28] MEDS ORDERED: Vancomycin Consult Pharmacy OTHER PRN (06:05)
[2018-02-28] MEDS ORDERED: Bisacodyl 10 MG Supp RECTAL PRN (06:07)
[2018-02-28] MEDS: Sod Chloride 0.9% Inj 1,000 ML IV.CONT SCH ×2 (06:34→16:37)
[2018-02-28] MEDS ORDERED: Ketorolac Inj 30 MG/ML (IVP) Vial IV.PUSH ONE (11:11)
[2018-02-28] MEDS: Senna/Docusate Sodium 8.6/50 MG Tablet PO SCH ×2 (11:35→20:47)
--- NOTE | 2018-02-28 17:52 | P.HP ---
History of Present Illness Service: hospitalist Primary Care Physician: No Primary Care Physician Chief Complaint: Fever and chills History of Present Illness: Patient is a 42-year-old female with a past history of IV drug abuse and endocarditis. She has had multiple hospitalizations for infection most recently over the summer where she was diagnosed with bacterial endocarditis and did not complete her therapy due to using PICC line for IV drug use. Repeat hospitalization for endocarditis resulted in her leaving AMA because she could not get narcotics while hospitalized. She returns today with fevers and chills. She is positive at admit for cocaine. Patient is seen writhing around in her hospital bed complaining of back pain and asking for medications. Explained to her that she will not be receiving narcotic medications while hospitalized. She immediately sits up and begins eating sherbet off of her bedside table and does not appear to be in any distress. She has no other complaints other than feeling like she is going into withdrawal. - Diagnosis (1) Pneumonia (2) Hypokalemia Review of Systems All other systems reviewed negative except as stated in HPI PMFSH - History History Provided By: Patient, Medical Record - Medical History Medical History: Medical History (Last Reviewed 02/28/18 @ 17:40 by ALIS Doran) Endocarditis Hepatitis C IV drug abuse Laceration of kidney - Surgical History Surgical History: Surgical History (Last Reviewed 02/28/18 @ 17:40 by ALIS Doran) Hx of hand surgery - Family History Family History: Family History (Last Updated 02/28/18 @ 17:40 by ALIS Doran) Other Family history unknown - Social History I have reviewed the patient's Social History: Yes - Tobacco History Second Hand Smoke Exposure: Yes Tobacco Use In Past 30 Days: Yes Smoking Status: Current every day smoker Tobacco Type: Cigarettes - Alcohol History How Often Do You Have a Drink Containing Alcohol: Never - Substance Use History Substance History: Active Abuse - Substance Use Type Methamphetamine Status: Active Route Used: Intravenously Last Used: 4 weeks ago Comment: Uses drugs d/t a lot of personal problems Crack/Cocaine Status: Active Route Used: Intravenously Last Used: this morning prior to coming to the hospital Comment: Uses drugs d/t a lot of personal problems Heroin Status: Active Route Used: Intravenously Last Used: this morning prior to coming to the hospital Comment: Uses drugs d/t a lot of personal problems - Travel History Recent Travel in the [place] Within the Last 8 Weeks: No Recent Travel Out of the Country Within the Last 8 Weeks: No - Immunization History Tetanus Immunization: Unsure Medications and Allergies Active Medications: Active Medications Acetaminophen (Tylenol) 650 mg PO Q4H PRN PRN Reason: Temp > 100.4 Al Hydroxide/Mg Hydroxide (Milk Of Magnesia Liq) 30 ml PO Q12H PRN PRN Reason: Mild Constipation Albuterol (Duoneb Neb (Prn)) 1 ampul NEB Q4HR NEB PRN PRN Reason: SOB/WHEEZING Bisacodyl (Dulcolax Supp) 10 mg RECTAL DAILY PRN PRN Reason: SEVERE CONSITIPATION Clonidine HCl (Catapress-Tts 0.1 Mg Patch.7d) 1 patch T-DERMAL Q7D [facility] Last Admin: 02/28/18 16:36 Dose: 1 patch Cefepime HCl 1,000 mg/ Sodium (Chloride) 100 mls @ 200 mls/hr IV.SIG Q12H RENU Sodium Chloride (Ns Inj) 1,000 mls @ 100 mls/hr IV.CONT .Q10H RENU Last Admin: 02/28/18 16:37 Dose: 100 mls/hr Vancomycin HCl 750 mg/ Sodium (Chloride) 257.5 mls @ 250 mls/hr IV.SIG Q24H RENU Lactulose (Lactulose Liq) 30 ml PO DAILY PRN PRN Reason: SEVERE CONSITIPATION Miscellaneous Information ([facility] Ordered Lab Info) 0 each OTHER ONCE ONE Stop: 03/03/18 04:46 Nicotine (Habitrol 21 Mg Patch.24 Hr) 1 patch T-DERMAL DAILY [facility] Last Admin: 02/28/18 16:36 Dose: 1 patch Ondansetron HCl (Zofran Inj) 4 mg IV.PUSH Q6H PRN PRN Reason: NAUSEA OR VOMITING Patch Removal (Remove Old Patch) 1 each T-DERMAL Q7D RENU Patch Removal (Remove Old Patch) 1 each T-DERMAL DAILY [facility] Pharmacy Profile Note (Vancomycin Consult Pharmacy) 1 each OTHER UNSCH PRN PRN Reason: Pharmacy to dose Senna/Docusate Sodium (Silvia-Colace) 1 tab PO BID [facility] Last Admin: 02/28/18 11:35 Dose: Not Given Sennosides (Senokot) 17.2 mg PO Q12H PRN PRN Reason: Moderate Constipation Sodium Chloride (Ns Flush) 2 ml IV.FLUSH PRN PRN PRN Reason: FLUSH AFTER USING IV ACCESS Allergies Allergy/AdvReac Type Severity Reaction Status Date / Time No Known Allergies Allergy Verified 02/28/18 02:02 Home Medications Medication Instructions Recorded Confirmed Type No Known Home Medications 12/18/17 02/28/18 History Exam Vital signs: Vital Signs 02/28/18 02:02 02/28/18 02:40 02/28/18 05:00 Temperature 98.0 F 97.9 F Pulse Rate 108 H 87 77 Respiratory Rate 16 20 16 Blood Pressure 138/78 166/74 H 122/69 Pulse Oximetry 100 100 99 02/28/18 08:00 02/28/18 12:00 02/28/18 16:00 Temperature 97.8 F 98.0 F 99.2 F Pulse Rate 72 73 87 Respiratory Rate 16 18 16 Blood Pressure 145/72 H 159/87 H 156/80 H Pulse Oximetry 100 99 97 Intake & Output 02/27/18 02/28/18 02/28/18 18:59 06:59 18:59 Intake Total 1350 / 1350 1100 / 1100 Balance 1350 / 1350 1100 / 1100 Weight 43.091 kg Intake: IV 1350 / 1350 1100 / 1100 NS Inj 1,000 ML @ 100 mls/hr IV 1000 / 1000 .CONT .Q10H RENU Rx#:[id number] Zosyn 4.5 GM Premix 4.5 gm In 100 / 100 100 ml @ 200 mls/hr IV.SIG ONCE ONE Rx#:[id number] KCl 10 mEq Premix Inj 10 meq In 100 / 100 100 ml @ 100 mls/hr IV.SIG ONCE ONE Rx#:[id number] NS Inj 1,000 ML @ Wide Open IV. 1000 / 1000 SIG BOLUS ONE Rx#:[id number] Vancomycin Inj 1,000 MG In NS 250 / 250 Inj 250 ML @ 250 mls/hr IV.SIG ONCE ONE Rx#:[id number] Other: Date of Last Bowel Movement 02/28/18 Narrative: GENERAL: Thin, well-developed adult female in no obvious distress. Patient looks much older than her stated age SKIN: Warm and dry. Multiple scars from old lesions over arms and legs. HEAD: Atraumatic. Normocephalic. CARDIOVASCULAR: Regular rate and rhythm. RESPIRATORY: No accessory muscle use. Clear to auscultation. Breath sounds equal bilaterally. GASTROINTESTINAL: Abdomen soft, non-tender, non-distended. Positive bowel sounds. MUSCULOSKELETAL: Extremities without clubbing, cyanosis, or edema. No obvious deformities. NEUROLOGICAL: Awake and alert. No obvious cranial nerve deficits. Motor grossly within normal limits. Normal speech. Results - Labs CBC & Chem 7: 02/28/18 02:50 02/28/18 02:50 Labs: Laboratory Results - last 24 hr 02/28/18 02/28/18 02/28/18 02:47 02:50 02:50 WBC 10.5 RBC 4.55 Hgb 10.4 L Hct 31.9 L MCV 70.1 L MCH 22.8 L MCHC 32.6 RDW 17.6 H Plt Count 330 MPV 7.9 Neut % (Auto) 87.4 H Lymph % (Auto) 6.1 L [place]falfa % (Auto) 6.0 Eos % (Auto) 0.0 Baso % (Auto) 0.5 Neut # (Auto) 9.2 H Lymph # (Auto) 0.6 L [place] # (Auto) 0.6 Eos # (Auto) 0.0 Baso # (Auto) 0.1 WBC Differential . Differential Comment Auto diff final Sodium 132 L Potassium 2.9 L* Chloride 94 L Carbon Dioxide 26.7 Anion Gap 11 BUN 15 Creatinine 1.20 H Estimated GFR 50 L POC Glucose 192 H Random Glucose 175 H Lactic Acid Calcium 7.9 L Total Bilirubin 0.3 AST 51 H ALT 45 Alkaline Phosphatase 95 Troponin I 0.05 Total Protein 8.1 Albumin 2.6 L Lipase 80 Urine Color Urine Clarity Urine pH Ur Specific Jerome Urine Protein Urine Glucose (UA) Urine Ketones Urine Occult Blood Urine Nitrate Urine Bilirubin Urine Urobilinogen Ur Leukocyte Esterase Urine RBC Urine WBC Ur Squamous Epith Cells Urine Bacteria Urine Mucus Micro UA Comment Ur Microscopic Review Urine Culture Comments Urine Opiates Screen Ur Barbiturates Screen Ur Amphetamines Screen U Benzodiazepines Scrn Urine Cocaine Screen U Cannabinoids Screen Serum Alcohol Less than 3 02/28/18 02/28/18 02/28/18 03:00 03:00 03:00 WBC RBC Hgb Hct MCV MCH MCHC RDW Plt Count MPV Neut % (Auto) Lymph % (Auto) Alfalfa % (Auto) Eos % (Auto) Baso % (Auto) Neut # (Auto) Lymph # (Auto) Alfalfa # (Auto) Eos # (Auto) Baso # (Auto) WBC Differential Differential Comment Sodium Potassium Chloride Carbon Dioxide Anion Gap BUN Creatinine Estimated GFR POC Glucose Random Glucose Lactic Acid 3.3 H Calcium Total Bilirubin AST ALT Alkaline Phosphatase Troponin I Total Protein Albumin Lipase Urine Color Straw Urine Clarity Clear Urine pH 5.0 Ur Specific Jerome 1.006 Urine Protein Negative Urine Glucose (UA) 50 Urine Ketones Negative Urine Occult Blood Small H Urine Nitrate Negative Urine Bilirubin Negative Urine Urobilinogen Less than 2 Ur Leukocyte Esterase Small H Urine RBC Less than 1 Urine WBC 4 Ur Squamous Epith Cells 3 Urine Bacteria Rare H Urine Mucus Few H Micro UA Comment Culture not ind Ur Microscopic Review Not Reportable Urine Culture Comments Culture not ind Urine Opiates Screen Pos H Ur Barbiturates Screen Neg Ur Amphetamines Screen Neg U Benzodiazepines Scrn Neg Urine Cocaine Screen Pos H U Cannabinoids Screen Neg Serum Alcohol 02/28/18 05:25 WBC RBC Hgb Hct MCV MCH MCHC RDW Plt Count MPV Neut % (Auto) Lymph % (Auto) Alfalfa % (Auto) Eos % (Auto) Baso % (Auto) Neut # (Auto) Lymph # (Auto) Alfalfa # (Auto) Eos # (Auto) Baso # (Auto) WBC Differential Differential Comment Sodium Potassium Chloride Carbon Dioxide Anion Gap BUN Creatinine Estimated GFR POC Glucose Random Glucose Lactic Acid 0.9 Calcium Total Bilirubin AST ALT Alkaline Phosphatase Troponin I Total Protein Albumin Lipase Urine Color Urine Clarity Urine pH Ur Specific Jerome Urine Protein Urine Glucose (UA) Urine Ketones Urine Occult Blood Urine Nitrate Urine Bilirubin Urine Urobilinogen Ur Leukocyte Esterase Urine RBC Urine WBC Ur Squamous Epith Cells Urine Bacteria Urine Mucus Micro UA Comment Ur Microscopic Review Urine Culture Comments Urine Opiates Screen Ur Barbiturates Screen Ur Amphetamines Screen U Benzodiazepines Scrn Urine Cocaine Screen U Cannabinoids Screen Serum Alcohol - Imaging Impressions Chest X-Ray 02/28/18 02:48 CONCLUSION: Small infiltrate left lung base. Caprini VTE Risk Assessment Caprini VTE Risk Assessment: No/Low Risk (score <= 1) Caprini Risk Assessment Model: Point Value = 1 Point Value = 2 Point Value = 3 Point Value = 5 Age 41-60 Minor surgery BMI > 25 kg/m2 Swollen legs Varicose veins or History of unexplained or recurrent spontaneous Oral contraceptives or hormone replacement Sepsis (< 1 month) Serious lung disease, including pneumonia (< 1 month) Abnormal pulmonary function Acute myocardial infarction Congestive heart failure (< 1 month) History of inflammatory bowel disease Medical patient at bed rest Age 61-74 Arthroscopic surgery Major open surgery (> 45 min) Laparoscopic surgery (> 45 min) Malignancy Confined to bed (> 72 hours) Immobilizing plaster cast Central venous access Age >= 75 History of VTE Family history of VTE Factor V Leiden Prothrombin [id number] Lupus anticoagulant Anticardiolipin antibodies Elevated serum homocysteine Heparin-induced thrombocytopenia Other congenital or acquired thrombophilia Stroke (< 1 month) Elective arthroplasty Hip, pelvis, or leg fracture Acute spinal cord injury (< 1 month) Prophylaxis Regimen: Total Risk Factor Score Risk Level Prophylaxis Regimen 0-1 Low Early ambulation 2 Moderate Order ONE of the following: *Sequential Compression Device (SCD) *Heparin 5000 units SQ BID 3-4 Higher Order ONE of the following medications: *Heparin 5000 units SQ TID *Enoxaparin/Lovenox 40 mg SQ daily (WT < 150 kg, CrCl > 30 mL/min) *Enoxaparin/Lovenox 30 mg SQ daily (WT < 150 kg, CrCl > 10-29 mL/min) *Enoxaparin/Lovenox 30 mg SQ BID (WT < 150 kg, CrCl > 30 mL/min) AND/OR *Sequential Compression Device (SCD) 5 or more Highest Order ONE of the following medications: *Heparin 5000 units SQ TID (Preferred with Epidurals) *Enoxaparin/Lovenox 40 mg SQ daily (WT < 150 kg, CrCl > 30 mL/min) *Enoxaparin/Lovenox 30 mg SQ daily (WT < 150 kg, CrCl > 10-29 mL/min) *Enoxaparin/Lovenox 30 mg SQ BID (WT < 150 kg, CrCl > 30 mL/min) AND *Sequential Compression Device (SCD) Assessment and Plan - Assessment (1) Pneumonia Code(s): J18.9 - Pneumonia, unspecified organism Status: Acute (2) Hypokalemia Code(s): E87.6 - Hypokalemia Status: Acute - Plan 42-year-old female with a history of IV drug abuse and untreated endocarditis presents with fever and chills. Pneumonia -NS bolus given in ED -Afebrile and normotensive at admit. Lactic acid initially 3.3, now normal -Treated with Zosyn and vancomycin in the ED; changed to cefepime by admitting Hyperkalemia -2.9 at admit-patient given 40 M EQ's p.o. and 10 mm acute. Recheck and monitor Drug abuse -Clonidine and promethazine for withdrawal symptoms -Nicotine patch -No narcotics DVT prophylaxis: Patient is ambulatory Discussed with: Patient and nurse
--- NOTE | 2018-02-28 19:45 | ECG ---
Date Performed: 02/28/2018 Time Performed: 02:43:38 PTAGE: 42 years EKG: Sinus rhythm POSSIBLE LEFT ATRIAL ENLARGEMENT POSSIBLE LEFT VENTRICULAR HYPERTROPHY ABNORMAL ECG PREVIOUS TRACING : 12/18/2017 05.55 Since the previous tracing, no significant change noted DOCTOR: Anand Brock Interpretating Date/Time 02/28/2018 19:43:03
[2018-02-28] MEDS: Acetaminophen 325 MG Tablet PO PRN (20:45)
[2018-03-01] MEDS: Acetaminophen 325 MG Tablet PO PRN ×3 (00:35→10:42)
[2018-03-01] MEDS: Sod Chloride 0.9% Inj 1,000 ML IV.CONT SCH ×3 (03:29→15:16)
[2018-03-01] MEDS ORDERED: Vancomycin Inj 750 MG in Sodium Chlor 0.9% Inj 250 ML IV.SIG SCH (05:00)
[2018-03-01 08:34] LABS: Baso % (Auto) 0.5 % (0.0-2.0); Eos % (Auto) 0.3 % (0.0-4.0); Hematocrit 28.7 % (35.0-46.0); Hemoglobin 9.5 gm/dL (11.6-15.3); Lymph # (Auto) 0.7 th/mm3 (1.0-4.8); Lymph % (Auto) 7.4 % (9.0-44.0); Mean Corpuscular HGB Conc 33.2 % (32.0-36.0); Mean Corpuscular Volume 69.2 fL (80.0-100.0); Mean Platelet Volume 8.1 fL (7.0-11.0); Mono # (Auto) 0.6 th/mm3 (0.0-0.9); Mono % (Auto) 6.6 % (0.0-8.0); Neut # (Auto) 7.5 th/mm3 (1.8-7.7); Neut % (Auto) 85.2 % (16.0-70.0); Platelet Count 315 th/mm3 (150-450); Red Blood Count 4.15 mil/mm3 (4.00-5.30); Red Cell Distribution Width 16.8 % (11.6-17.2); White Blood Count 8.8 th/mm3 (4.0-11.0)
[2018-03-01] MEDS: Senna/Docusate Sodium 8.6/50 MG Tablet PO SCH ×2 (08:34→21:20)
[2018-03-01] MEDS: Piperacil/Tazo 3.375 GM Premix 50 ML IV.SIG SCH ×2 (08:36→21:20)
[2018-03-01 09:08] LABS: Alanine Aminotransferase 43 U/L (10-53); Alkaline Phosphatase 91 U/L (45-117); Total Protein 7.9 g/dL (6.4-8.2)
[2018-03-01 09:26] LABS: Albumin 2.5 g/dL (3.4-5.0); Anion Gap 9 meq/L (5-15); Aspartate Aminotransferase 42 U/L (15-37); Blood Urea Nitrogen 5 mg/dL (7-18); Calcium 8.5 mg/dL (8.5-10.1); Carbon Dioxide 24.8 meq/L (21.0-32.0); Chloride 98 meq/L (98-107); Glomerular Filtration Rate 85 mL/min (>89); Glucose,Random 150 mg/dL (74-106); Potassium 3.4 meq/L (3.5-5.1); Sodium 132 meq/L (136-145)
[2018-03-01] MEDS ORDERED: Ibuprofen 600 MG Tablet PO PRN (13:33)
--- NOTE | 2018-03-01 13:35 | P.PN ---
Subjective Interval history: Patient is seen lying in bed. She continues to kill and complain about back pain as well as anxiety and is asking for both benzodiazepines and narcotics. Once again explained that this is not an option for her. Denies any chest pain or shortness of breath. No nausea vomiting or diarrhea. Nursing reports that patient is frequently very disrupted. Physical Exam Vital signs: Vital Signs 02/28/18 16:00 02/28/18 20:00 03/01/18 00:00 Temperature 99.2 F 99.7 F H 100.9 F H Pulse Rate 87 99 H 92 H Respiratory Rate 16 21 20 Blood Pressure 156/80 H 168/94 H 148/84 H Pulse Oximetry 97 100 100 03/01/18 04:00 03/01/18 07:59 03/01/18 12:51 Temperature 99.1 F 98.5 F 98.5 F Pulse Rate 87 90 86 Respiratory Rate 21 20 18 Blood Pressure 177/89 H 174/94 H 165/82 H Pulse Oximetry 94 L 100 100 Intake & Output 02/28/18 03/01/18 03/01/18 18:59 06:59 18:59 Intake Total 1100 / 1100 100 / 100 1050 / 1050 Balance 1100 / 1100 100 / 100 1050 / 1050 Intake: IV 1100 / 1100 100 / 100 1050 / 1050 NS Inj 1,000 ML @ 100 mls/hr IV 1000 / 1000 1000 / 1000 .CONT .Q10H RENU Rx#:[id number] Maxipime Inj 1,000 MG In NS Inj 100 / 100 100 ML @ 200 mls/hr IV.SIG Q12H RENU Rx#:[id number] Zosyn 3.375 GM Premix 50 ML @ 50 / 50 100 mls/hr IV.SIG Q12H RENU Rx#: [id number] KCl 10 mEq Premix Inj 10 meq In 100 / 100 100 ml @ 100 mls/hr IV.SIG ONCE ONE Rx#:[id number] Other: # Voids 3 Date of Last Bowel Movement 02/28/18 03/01/18 03/01/18 # Bowel Movements 1 Narrative: GENERAL: Thin, well-developed adult female in no obvious distress. Patient looks much older than her stated age SKIN: Warm and dry. Multiple scars from old lesions over arms and legs. HEAD: Atraumatic. Normocephalic. CARDIOVASCULAR: Regular rate and rhythm. RESPIRATORY: No accessory muscle use. Clear to auscultation. Breath sounds equal bilaterally. GASTROINTESTINAL: Abdomen soft, non-tender, non-distended. Positive bowel sounds. MUSCULOSKELETAL: Extremities without clubbing, cyanosis, or edema. No obvious deformities. NEUROLOGICAL: Awake and alert. No obvious cranial nerve deficits. Motor grossly within normal limits. Normal speech. Results - Labs CBC & Chem 7: 03/01/18 07:00 03/01/18 07:00 Laboratory Results - last 24 hr 03/01/18 03/01/18 07:00 07:00 WBC 8.8 RBC 4.15 Hgb 9.5 L Hct 28.7 L MCV 69.2 L MCH 23.0 L MCHC 33.2 RDW 16.8 Plt Count 315 MPV 8.1 Neut % (Auto) 85.2 H Lymph % (Auto) 7.4 L [place] % (Auto) 6.6 Eos % (Auto) 0.3 Baso % (Auto) 0.5 Neut # (Auto) 7.5 Lymph # (Auto) 0.7 L [place] # (Auto) 0.6 Eos # (Auto) 0.0 Baso # (Auto) 0.0 WBC Differential . Differential Comment Auto diff final Sodium 132 L Potassium 3.4 L Chloride 98 Carbon Dioxide 24.8 Anion Gap 9 BUN 5 L Creatinine 0.75 Estimated GFR 85 L Random Glucose 150 H Calcium 8.5 Total Bilirubin 0.2 AST 42 H ALT 43 Alkaline Phosphatase 91 Total Protein 7.9 Albumin 2.5 L Microbiology 02/28/18 02:55 Blood - Peripheral Aerobic Blood Culture - Preliminary gram positive cocci 02/28/18 02:55 Blood - Peripheral Anaerobic Blood Culture - Preliminary gram positive cocci 02/28/18 02:50 Blood - Peripheral Aerobic Blood Culture - Preliminary gram positive cocci 02/28/18 02:50 Blood - Peripheral Anaerobic Blood Culture - Preliminary gram positive cocci gram positive rods Assessment and Plan - Assessment (1) Pneumonia Code(s): J18.9 - Pneumonia, unspecified organism Status: Acute (2) Hypokalemia Code(s): E87.6 - Hypokalemia Status: Acute - Plan 42-year-old female with a history of IV drug abuse and untreated endocarditis presents with fever and chills. Pneumonia -NS bolus given in ED -Afebrile and normotensive at admit. Lactic acid initially 3.3, now normal -Currently being treated with Zosyn and vancomycin -Cultures positive; repeat and monitor Endocarditis -Patient with prior history of endocarditis who failed to complete treatment -Temp 100.9 overnight -last echo 09/2017; will order repeat. ID consulted. Hyperkalemia -2.9 at admit-continue replacement as indicated and monitor Drug abuse -Clonidine and promethazine for withdrawal symptoms -Add Vistaril for anxiety -Nicotine patch -No narcotics DVT prophylaxis: Patient is ambulatory Discussed with: Patient and nurse
--- NOTE | 2018-03-02 03:53 | P.AMA ---
AMA Note - Diagnosis (1) Pneumonia (2) Hypokalemia AMA Statement: Patient Ana Laura Webster has decided to leave the hospital against medical advice. This patient has the capacity to refuse care and understands the risks of leaving, including permanent disability and/or , and has had an opportunity to ask questions about his/her condition. The patient has been informed that he/she may return for care at any time, and follow up has been arranged/advised. Discharge Disposition: Against Medical Advice Patient Condition on Discharge: Stable
[2018-03-03] MEDS ORDERED: Pharmacy Ordered Lab Info OTHER ONE (04:45)
== END 2018-03-01 22:27 | disposition left against medical advice (07) ==
LOC: NEPC 01:57 → INTOOBSV 05:55 → NEDA 05:55 → NEPFCDU 06:58
PROVIDERS: ADMIT Family Medicine; ATTEND Family Medicine

== ENCOUNTER 2018-05-03 08:43 | Inpatient (IN) ==
--- NOTE | 2018-05-03 09:10 | ED ---
HPI General Chief complaint: Psychiatric Symptoms Stated complaint: Psych Screen/DBPD Time Seen by Provider: 05/03/18 09:01 Source: patient Mode of arrival: EMS Limitations: no limitations History of Present Illness HPI narrative: 42-year-old female brought in by ambulance under Zuñiga act initiated by PD. According to the Zuñiga act the patient has not had meth in a day and is having withdrawals. She stated if she could find antifreeze she would shoot it up. She does not want to live. Patient tells me that she has history of hepatitis C, untreated depression, polysubstance abuse/IV drug use. She tells me that she injects heroin, methamphetamine, cocaine, and Dilaudid. She tells me that she feels very dehydrated, and has been awake for the last 5 days using meth. She denies any toxic ingestions or attempts at harming herself. Her chart was reviewed and shows that the patient was diagnosed with endocarditis in September of this year. She has been to the hospital several times since, leaving [place]. She has not completed her course of IV antibiotics. Last blood cultures were on 02/28/18 and were positive for staph aureus that was pansensitive as well as bacillus species, not anthracis. She denies fevers or chills. No chest pain or dyspnea. She does admit to feeling suicidal, mainly because she has run out of her drugs. Related Data Home Medications Medication Instructions Recorded Confirmed No Known Home Medications 12/18/17 05/03/18 Allergies Allergy/AdvReac Type Severity Reaction Status Date / Time No Known Allergies Allergy Verified 05/03/18 09:02 Review of Systems ROS: all other systems reviewed are negative [facility] Social History Social History Substance History: Active Abuse Second Hand Smoke Exposure: Yes Smoking Status: Current every day smoker Tobacco Type: Cigarettes How Often Do You Have a Drink Containing Alcohol: Never Substance Abuse Detail Crack/Cocaine: Substance Use Status: Active Route Used Substance Abuse: Inhalation Reason for Use: Calm Down Immunization History Tetanus Immunization: Unsure Exam Narrative Exam Narrative: GENERAL: Well-developed, cachectic, awake, alert, no apparent distress. SKIN: Focused skin assessment warm/dry. Several track recinos on bilateral upper and lower extremities with surrounding ecchymosis, no warmth or erythema, no fluctuance or induration. HEAD: Atraumatic. Normocephalic. EYES: Pupils equal and round. No scleral icterus. No injection or drainage. ENT: No nasal bleeding or discharge. Mucous membranes pink and dry. NECK: Trachea midline. No JVD. No nuchal rigidity. CARDIOVASCULAR: Tachycardic, rate 104, regular, 2 out of 6 holosystolic murmur. RESPIRATORY: No accessory muscle use. Clear to auscultation. Breath sounds equal bilaterally. GASTROINTESTINAL: Abdomen soft, non-tender, nondistended. MUSCULOSKELETAL: Skin exam as above. No obvious deformities. No clubbing. No cyanosis. No edema. NEUROLOGICAL: Awake and alert. No obvious cranial nerve deficits. Motor grossly within normal limits. Normal speech. PSYCHIATRIC: Appears anxious. Course Initial Documented Vital Signs Temperature 98.0 F 05/03/18 09:02 Pulse Rate 104 H 05/03/18 09:02 Respiratory Rate 18 05/03/18 09:02 Blood Pressure 104/100 H 05/03/18 09:02 Pulse Oximetry 100 05/03/18 09:02 Last Documented Vital Signs Temperature 98.0 F 05/03/18 09:02 Pulse Rate 104 H 05/03/18 09:02 Respiratory Rate 18 05/03/18 09:02 Blood Pressure 104/100 H 05/03/18 09:02 Pulse Oximetry 100 05/03/18 09:02 Critical Care Time Critical Care Time: Yes Total Critical Care Time: 32 Attestation: Aggregate critical care time was 32 minutes. Time to perform other separately billable procedures was not included in the critical care time. My time did not include minutes spent treating any other patients simultaneously or on activities that did not directly contribute to the patient's treatment. The services I provided to this patient were to treat and/or prevent clinically significant deterioration that could result in: , permanent disability, septic shock I provided critical care services requiring my management, as noted below: Chart data review, documentation time, medication orders and management, vital sign assessments/reviewing monitor data, ordering and reviewing lab tests, ordering and interpreting/reviewing x-rays and diagnostic studies, care of the patient and discussion of the patient with the admitting physicians. Medical Decision Making MDM Narrative Medical decision making narrative: Vital signs reviewed. CBC is remarkable for leukocytosis of 15.8, slight anemia CMP is remarkable for sodium 128, potassium 2.6 Lactic acid is 5.8. Chest x-ray shows no acute cardia pulmonary disease. Patient is slightly tachycardic, has a 2 out of 6 holosystolic murmur and leukocytosis with history of endocarditis earlier this year. She has a lactic acid of 5.8. She was given 2 L normal saline IV. Her potassium was replaced parenterally and enterally. Last blood culture was on 02/28/18 and grew staph aureus that was pansensitive. She was written for a dose of IV cefepime. Although the patient is placed under a Zuñiga act, she will be admitted to the medical service for further endocarditis workup and psychiatric consultation. While in the emergency department the patient has become increasingly agitated and was given Ativan. 11:30 AM: Case discussed with the medical residents. They will admit the patient to their service under Dr. Martinez. Medical Screen Exam Complete: Yes Emergency Medical Condition: Yes Differential Diagnosis Differential Diagnosis: Polysubstance use, bacteremia, endocarditis, drug withdrawals, suicidal ideation/depression Lab Data Result diagrams: 05/03/18 10:05 05/03/18 10:05 Lab Results 05/03/18 05/03/18 05/03/18 Range/Units 10:05 10:05 10:05 WBC 15.8 H (4.0-11.0) th/mm3 RBC 4.68 (4.00-5.30) mil/mm3 Hgb 10.3 L (11.6-15.3) gm/dL Hct 29.6 L (35.0-46.0) % MCV 63.2 L (80.0-100.0) fL MCH 22.0 L (27.0-34.0) pg MCHC 34.7 (32.0-36.0) % RDW 17.1 (11.6-17.2) % Plt Count 548 H (150-450) th/mm3 MPV 7.4 (7.0-11.0) fL Neut % (Auto) 89.4 H (16.0-70.0) % Lymph % (Auto) 4.6 L (9.0-44.0) % Dane % (Auto) 5.9 (0.0-8.0) % Eos % (Auto) 0.0 (0.0-4.0) % Baso % (Auto) 0.1 (0.0-2.0) % Neut # (Auto) 14.1 H (1.8-7.7) th/mm3 Lymph # (Auto) 0.7 L (1.0-4.8) th/mm3 Dane # (Auto) 0.9 (0.0-0.9) th/mm3 Eos # (Auto) 0.0 (0.0-0.4) th/mm3 Baso # (Auto) 0.0 (0.0-0.2) th/mm3 WBC Differential . Differential Comment Auto diff final PT 12.7 H (9.8-11.6) sec INR 1.3 Ratio APTT 39.0 H (23.4-31.7) sec Sodium 129 L (136-145) meq/L Potassium 2.6 L* (3.5-5.1) meq/L Chloride 84 L (98-107) meq/L Carbon Dioxide 33.7 H (21.0-32.0) meq/L Anion Gap 11 (5-15) meq/L BUN 28 H (7-18) mg/dL Creatinine 1.03 H (0.50-1.00) mg/dL Estimated GFR 59 L (>89) mL/min Random Glucose 146 H (74-106) mg/dL Lactic Acid (0.4-2.0) mmol/L Calcium 10.5 H (8.5-10.1) mg/dL Magnesium 2.1 (1.5-2.5) mg/dL Total Bilirubin 0.8 (0.2-1.0) mg/dL AST 26 (15-37) U/L ALT 26 (10-53) U/L Alkaline Phosphatase 152 H (45-117) U/L Total Creatine Kinase 23 L (26-192) U/L Troponin I Less than 0.02 L (0.02-0.05) ng/mL Total Protein 10.0 H (6.4-8.2) g/dL Albumin 2.3 L (3.4-5.0) g/dL TSH 0.656 (0.358-3.740) uIU/mL Salicylates (2.8-20.0) mg/dL Acetaminophen Less than 2.0 L (10.0-30.0) mcg/mL Serum Alcohol Less than 3 (0-5) mg/dL 05/03/18 05/03/18 Range/Units 10:05 10:05 WBC (4.0-11.0) th/mm3 RBC (4.00-5.30) mil/mm3 Hgb (11.6-15.3) gm/dL Hct (35.0-46.0) % MCV (80.0-100.0) fL MCH (27.0-34.0) pg MCHC (32.0-36.0) % RDW (11.6-17.2) % Plt Count (150-450) th/mm3 MPV (7.0-11.0) fL Neut % (Auto) (16.0-70.0) % Lymph % (Auto) (9.0-44.0) % Dane % (Auto) (0.0-8.0) % Eos % (Auto) (0.0-4.0) % Baso % (Auto) (0.0-2.0) % Neut # (Auto) (1.8-7.7) th/mm3 Lymph # (Auto) (1.0-4.8) th/mm3 Dane # (Auto) (0.0-0.9) th/mm3 Eos # (Auto) (0.0-0.4) th/mm3 Baso # (Auto) (0.0-0.2) th/mm3 WBC Differential Differential Comment PT (9.8-11.6) sec INR Ratio APTT (23.4-31.7) sec Sodium (136-145) meq/L Potassium (3.5-5.1) meq/L Chloride (98-107) meq/L Carbon Dioxide (21.0-32.0) meq/L Anion Gap (5-15) meq/L BUN (7-18) mg/dL Creatinine (0.50-1.00) mg/dL Estimated GFR (>89) mL/min Random Glucose (74-106) mg/dL Lactic Acid 5.3 H* (0.4-2.0) mmol/L Calcium (8.5-10.1) mg/dL Magnesium (1.5-2.5) mg/dL Total Bilirubin (0.2-1.0) mg/dL AST (15-37) U/L ALT (10-53) U/L Alkaline Phosphatase (45-117) U/L Total Creatine Kinase (26-192) U/L Troponin I (0.02-0.05) ng/mL Total Protein (6.4-8.2) g/dL Albumin (3.4-5.0) g/dL TSH (0.358-3.740) uIU/mL Salicylates 2.4 L (2.8-20.0) mg/dL Acetaminophen (10.0-30.0) mcg/mL Serum Alcohol (0-5) mg/dL Imaging Data Radiologist's impression: Chest X-Ray 05/03/18 09:05 CONCLUSION: Negative examination. Discharge Plan Discharge Disposition Patient Disposition: ED Admit(ED Internal Use Only) Discharge Condition Condition: Stable Discharge Order Discharge Orders: ED Use Only Admit Order (Routine); Ordered 05/03/18 Ordered By: Feliberto Lindsey Discharge Details Diagnosis: Leukocytosis, Polysubstance abuse, Acidosis, lactic, Psychiatric disorder, History of bacterial endocarditis, Hypokalemia Physicians Team ED Provider: Feliberto Lindsey Primary Care Provider: UNKNOWN, Rxs /Orders / Referrals /Forms Prescriptions: No Action No Known Home Medications RF: 0 Status ED Status: With Doctor
[2018-05-03] MEDS ORDERED: Sod Chloride 0.9% Inj 1,000 ML IV.SIG SCH (09:15)
[2018-05-03] MEDS ORDERED: Sod Chloride 0.9% Inj 800 ML IV.SIG SCH (09:15)
--- NOTE | 2018-05-03 09:26 | XR ---
EXAM DATE: 05/03/2018 9:23 AM EST AGE/SEX: 42 years / Female INDICATIONS: Fever. CLINICAL DATA: This is the patient's initial encounter. Patient reports that signs and symptoms have been present for 1 day and indicates a pain score of 0/10. MEDICAL/SURGICAL HISTORY: . Pericarditis. Endocarditis. Transient ischemic attack. Cerebrovascu lar accident. None. COMPARISON: [facility] [place], CHEST 1V SINGLE AP, 02/28/2018. . FINDINGS: A single AP view of the chest demonstrates the lungs to be symmetrically aerated without evidence of mass, infiltrate or effusion. The cardiomediastinal contours are unremarkable. Osseous structures a re intact. CONCLUSION: Negative examination. Electronically signed by: Sheyla Abbott MD Board Certified Radiologist 05/03/2018 9:24 AM [facility] T
[2018-05-03 10:40] LABS: Baso % (Auto) 0.1 % (0.0-2.0); Hematocrit 29.6 % (35.0-46.0); Hemoglobin 10.3 gm/dL (11.6-15.3); Lymph # (Auto) 0.7 th/mm3 (1.0-4.8); Lymph % (Auto) 4.6 % (9.0-44.0); Mean Corpuscular HGB Conc 34.7 % (32.0-36.0); Mean Corpuscular Volume 63.2 fL (80.0-100.0); Mean Platelet Volume 7.4 fL (7.0-11.0); Mono # (Auto) 0.9 th/mm3 (0.0-0.9); Mono % (Auto) 5.9 % (0.0-8.0); Neut # (Auto) 14.1 th/mm3 (1.8-7.7); Neut % (Auto) 89.4 % (16.0-70.0); Platelet Count 548 th/mm3 (150-450); Red Blood Count 4.68 mil/mm3 (4.00-5.30); Red Cell Distribution Width 17.1 % (11.6-17.2); White Blood Count 15.8 th/mm3 (4.0-11.0)
[2018-05-03 10:46] LABS: INR 1.3 Ratio; Prothrombin Time 12.7 sec (9.8-11.6)
[2018-05-03 11:02] LABS: Alanine Aminotransferase 26 U/L (10-53); Albumin 2.3 g/dL (3.4-5.0); Anion Gap 11 meq/L (5-15); Aspartate Aminotransferase 26 U/L (15-37); Blood Urea Nitrogen 28 mg/dL (7-18); Calcium 10.5 mg/dL (8.5-10.1); Carbon Dioxide 33.7 meq/L (21.0-32.0); Chloride 84 meq/L (98-107); Glomerular Filtration Rate 59 mL/min (>89); Glucose,Random 146 mg/dL (74-106); Magnesium 2.1 mg/dL (1.5-2.5); Sodium 129 meq/L (136-145)
[2018-05-03 11:03] LABS: Potassium 2.6 meq/L (3.5-5.1)
[2018-05-03 11:04] LABS: Alkaline Phosphatase 152 U/L (45-117); Creatine Kinase 23 U/L (26-192)
[2018-05-03 11:12] LABS: Thyroid Stimulating Hormone 0.656 uIU/mL (0.358-3.740)
--- NOTE | 2018-05-03 12:21 | P.HPFP ---
History of Present Illness Primary Care Physician: UNKNOWN <Andres Martinez - 05/03/18 22:02> UNKNOWN <TracicliffordKatelyn - 05/03/18 12:21> History of Present Illness: 42-year-old female presenting to the emergency department Via [place] act. She has a known polysubstance abuser and apparently has been using methamphetamines heavily recently, she has run out of methamphetamines and appears to be having withdrawals. Upon initiation in the emergency department, she made comments expressing intention to harm herself. She endorses polysubstance abuse recently including heroin, methamphetamines, cocaine, and Dilaudid. She states that over the last several days she has not slept very much due to her drug use and feels dehydrated. In the emergency department, she was treated with Ativan for agitation and is currently heavily sedated. <Andres Martinez - 05/03/18 22:02> 42 year old female with DM2 and Hepatitis C presents to the ED because she was trying to hydrate herself after she tried to detox from drugs use for 2 days. She states that she was using methamphetamines. Unable to confirm other drug use due to patient being sedated. Due to patient being sedated status post 2 mg of Ativan given in the ED for withdrawals. Per ED note: The patient is a 32-year-old female who was brought in by the ambulance under [place]iga act initiated by the police department. According to the PD, the patient has not had meth in a day and is currently having withdrawals. The patient told the ED physician if she could find antifreeze she would shoot it up and she does not want to live. She also confirms a history of hepatitis C , untreated depression, polysubstance abuse and confirms heroin, methamphetamine , cocaine and Dilaudid use. She tells the ED physician that she feels dehydrated but has been awake for the past 5 days using meth. She was diagnosed with endocarditis in September this year but was inadequately treated in February due to leaving A. Last blood cultures were positive for staph aureus and bacillus. <TracicliffordTrippKatelyn - 05/03/18 17:27> - Diagnosis (1) Sepsis (2) Polysubstance abuse (3) History of bacterial endocarditis (4) Suicidal ideation (5) DVT prophylaxis (6) Nutrition, metabolism, and development symptoms <Andres Martinez 05/03/18 22:02> (1) Sepsis (2) Polysubstance abuse (3) History of bacterial endocarditis (4) Suicidal ideation (5) DVT prophylaxis (6) Nutrition, metabolism, and development symptoms <Katelyn Dunlap 05/03/18 17:29> Inpatient Certification: I certify that the inpatient services were ordered in accordance with Medicare regulations governing the order. This includes certification that hospital inpatient services are reasonable and necessary and in the case of services not specified as inpatient-only under 42 CFR 419.22(n), that they are appropriately provided as inpatient services in accordance to with the 2-midnight benchmark under 43 CFR 412.3(e) <Andres Martinez 05/03/18 22:02> I certify that the inpatient services were ordered in accordance with Medicare regulations governing the order. This includes certification that hospital inpatient services are reasonable and necessary and in the case of services not specified as inpatient-only under 42 CFR 419.22(n), that they are appropriately provided as inpatient services in accordance to with the 2-midnight benchmark under 43 CFR 412.3(e) <Katelyn Dunlap - 05/03/18 12:21> PMFSH - History History Provided By: Patient <Katelyn Dunlap 05/03/18 12:21> - Medical History Medical History: Medical History (Last Reviewed 03/19/18 @ 13:01 by Kalpesh Phelps MD) CVA (cerebral vascular accident) Endocarditis Hepatitis C IV drug abuse Laceration of kidney <Andres Martinez 05/03/18 22:02> Medical History (Last Reviewed 03/19/18 @ 13:01 by Kalpesh Phelps MD) CVA (cerebral vascular accident) Endocarditis Hepatitis C IV drug abuse Laceration of kidney <Katelyn Dunlap 05/03/18 12:21> - Surgical History Surgical History: Surgical History (Last Reviewed 03/19/18 @ 13:01 by Kalpesh Phelps MD) Hx of hand surgery <Andres Martinez 05/03/18 22:02> Surgical History (Last Reviewed 03/19/18 @ 13:01 by Kalpesh Phelps MD) Hx of hand surgery <Katelyn Dunlap 05/03/18 12:21> - Family History Family History: Family History (Last Reviewed 03/19/18 @ 13:01 by Kalpesh Phelps MD) Other Family history unknown <Andres Martinez - 05/03/18 22:02> Family History (Last Reviewed 03/19/18 @ 13:01 by Kalpesh Phelps MD) Other Family history unknown <Katelyn Dunlap - 05/03/18 12:21> - Tobacco History Second Hand Smoke Exposure: Yes <Katelyn Dunlap - 05/03/18 12:21> Tobacco Use In Past 30 Days: Yes <Katelyn Dunlap - 05/03/18 12:21> Smoking Status: Current every day smoker <Katelyn Dunlap - 05/03/18 12:21> Tobacco Type: Cigarettes <Katelyn Dunlap - 05/03/18 12:21> - Alcohol History How Often Do You Have a Drink Containing Alcohol: Never <Katelyn Dunlap - 12:21> - Substance Use History Substance History: Active Abuse <Katelyn Dunlap - 05/03/18 12:21> - Substance Use Type Crack/Cocaine Status: Active <Katelyn Dunlap - 05/03/18 12:21> Route Used: Inhalation <Katelyn Dunlap - 05/03/18 12:21> Reason for Use: Calm Down <Katelyn Dunlap - 05/03/18 12:21> - Immunization History Tetanus Immunization: Unsure <Katelyn Dunlap - 05/03/18 12:21> Medications and Allergies Allergies Allergy/AdvReac Type Severity Reaction Status Date / Time No Known Allergies Allergy Verified 05/03/18 09:02 <Andres Martinez - 05/03/18 22:02> Home Medications Medication Instructions Recorded Confirmed Type No Known Home Medications 12/18/17 05/03/18 History <Andres Martinez - 05/03/18 22:02> Active Medications: Active Medications Acetaminophen (Tylenol) 650 mg PO Q4H PRN PRN Reason: Temp > 100.4 Al Hydroxide/Mg Hydroxide (Milk Of Magnesia Liq) 30 ml PO Q12H PRN PRN Reason: Mild Constipation Bisacodyl (Dulcolax Supp) 10 mg RECTAL DAILY PRN PRN Reason: SEVERE CONSITIPATION Clonidine HCl (Catapress-Tts 0.1 Mg Patch.7d) 1 patch T-DERMAL Q7D [facility] Last Admin: 05/03/18 20:00 Dose: 1 patch Enoxaparin Sodium (Lovenox Inj) 40 mg SQ Q24H [facility] Last Admin: 05/03/18 18:35 Dose: 40 mg Flumazenil (Romazecon Inj) 0.2 mg IV.PUSH Q1M PRN PRN Reason: OVERSEDATION Haloperidol Lactate (Haldol Inj) 1 mg IV.PUSH Q15M PRN PRN Reason: for severe agitation Last Admin: 05/03/18 14:57 Dose: 1 mg Sodium Chloride (Ns Inj) 1,000 mls @ 0 mls/hr IV.SIG .Q0M [facility] Last Infusion: 05/03/18 11:55 Dose: Infused Sodium Chloride (Ns Inj) 800 mls @ 0 mls/hr IV.SIG .Q0M [facility] Last Infusion: 05/03/18 11:54 Dose: Infused Potassium Chloride/Sodium Chloride (Ns + Kcl 40 Meq Inj) 1,000 mls @ 100 mls/ hr IV.CONT .Q10H [facility] Last Admin: 05/03/18 13:53 Dose: 100 mls/hr Vancomycin HCl 750 mg/ Sodium (Chloride) 257.5 mls @ 257.5 mls/hr IV.SIG Q24H [facility] Last Admin: 05/03/18 20:56 Dose: 257.5 mls/hr Cefepime HCl 2,000 mg/ Sodium (Chloride) 100 mls @ 200 mls/hr IV.SIG Q8H RENU Lactulose (Lactulose Liq) 30 ml PO DAILY PRN PRN Reason: SEVERE CONSITIPATION Lorazepam (Ativan) 1 mg PO Q4H PRN PRN Reason: for CIWA 8-10 Lorazepam (Ativan) 2 mg PO Q2H PRN PRN Reason: for CIWA 11-14 Lorazepam (Ativan Inj) 2 mg IV.PUSH Q2H PRN PRN Reason: for CIWA 11-14 Last Admin: 05/03/18 20:35 Dose: 2 mg Lorazepam (Ativan Inj) 2 mg IV.PUSH Q1H PRN PRN Reason: for CIWA 15-20 Last Admin: 05/03/18 13:52 Dose: 2 mg Lorazepam (Ativan Inj) 2 mg IV.PUSH Q15M PRN PRN Reason: for CIWA > 20 Lorazepam (Ativan Inj) 1 mg IV.PUSH Q4H PRN PRN Reason: for CIWA 8-10 Miscellaneous Information ([facility] Ordered Lab Info) 0 each OTHER ONCE ONE Stop: 05/06/18 17:46 Ondansetron HCl (Zofran Inj) 4 mg IV.PUSH Q6H PRN PRN Reason: NAUSEA OR VOMITING Patch Removal (Remove Old Patch) 1 each T-DERMAL Q7D [facility] Pharmacy Profile Note (Vancomycin Consult Pharmacy) 1 each OTHER UNSCH PRN PRN Reason: Pharmacy to dose Senna/Docusate Sodium (Silvia-Colace) 1 tab PO BID [facility] Last Admin: 05/03/18 20:59 Dose: Not Given Sennosides (Senokot) 17.2 mg PO Q12H PRN PRN Reason: Moderate Constipation Sodium Chloride (Ns Flush) 2 ml IV.FLUSH BID [facility] Last Admin: 05/03/18 20:59 Dose: 2 ml Sodium Chloride (Ns Flush) 2 ml IV.FLUSH PRN PRN PRN Reason: FLUSH AFTER USING IV ACCESS <Andres Martinez - 05/03/18 22:02> Active Medications Sodium Chloride (Ns Inj) 1,000 mls @ 0 mls/hr IV.SIG .Q0M [facility] Last Infusion: 05/03/18 11:55 Dose: Infused Sodium Chloride (Ns Inj) 800 mls @ 0 mls/hr IV.SIG .Q0M [facility] Last Infusion: 05/03/18 11:54 Dose: Infused Potassium Chloride/Sodium Chloride (Ns + Kcl 40 Meq Inj) 1,000 mls @ 100 mls/ hr IV.CONT .Q10H [facility] <Katelyn Dunlap - 05/03/18 12:21> Exam Vital signs: Vital Signs 05/03/18 09:02 05/03/18 11:00 05/03/18 12:40 Temperature 98.0 F Pulse Rate 104 H 95 H Respiratory Rate 18 20 Blood Pressure 104/100 H Pulse Oximetry 100 99 05/03/18 13:06 05/03/18 14:39 05/03/18 15:05 Temperature Pulse Rate 99 H 115 H 102 H Respiratory Rate 26 H 26 H 16 Blood Pressure 177/107 H 210/131 H 188/92 H Pulse Oximetry 98 05/03/18 15:06 05/03/18 18:30 05/03/18 19:00 Temperature Pulse Rate 114 H Respiratory Rate 22 24 Blood Pressure 191/98 H Pulse Oximetry 98 05/03/18 19:45 05/03/18 19:49 05/03/18 20:00 Temperature Pulse Rate 109 H 119 H 112 H Respiratory Rate 24 36 H 53 H Blood Pressure 193/87 H Pulse Oximetry 99 96 99 05/03/18 20:02 05/03/18 20:04 05/03/18 21:00 Temperature Pulse Rate 117 H 119 H 122 H Respiratory Rate 43 H 39 H 41 H Blood Pressure 143/105 H 187/108 H 208/113 H Pulse Oximetry 98 98 97 05/03/18 21:09 Temperature Pulse Rate 118 H Respiratory Rate 44 H Blood Pressure 193/103 H Pulse Oximetry 99 Intake & Output 05/03/18 05/03/18 05/04/18 06:59 18:59 06:59 Intake Total 1899 Balance 190 / 190 Weight 45.359 kg Intake: IV 190 / 1900 Maxipime Inj 1,000 MG In NS Inj 100 / 100 100 ML @ 200 mls/hr IV.SIG ONCE ONE Rx#:[id number] NS Inj 1,000 ML @ Wide Open IV. 1800 / 1800 SIG .Q0M [facility] Rx#:[id number] <Andres Martinez - 05/03/18 22:02> Vital Signs 05/03/18 09:02 05/03/18 11:00 Temperature 98.0 F Pulse Rate 104 H 95 H Respiratory Rate 18 20 Blood Pressure 104/100 H Pulse Oximetry 100 Intake & Output 05/02/18 05/03/18 05/03/18 18:59 06:59 18:59 Intake Total 1799 / 1799 Balance 1799 Weight 45.359 kg Intake: IV 1800 / 1800 NS Inj 1,000 ML @ Wide Open IV. 1800 / 1800 SIG .Q0M [facility] Rx#:[id number] <Katelyn Dunlap - 05/03/18 12:21> Narrative: GENERAL: then, frail-appearing female lying in bed, sedated but still appears agitated. SKIN: Warm and dry. HEAD: Normocephalic. EYES: No scleral icterus. No injection or drainage. NECK: Supple, trachea midline. No JVD or lymphadenopathy. CARDIOVASCULAR: Regular rate and rhythm without murmurs, gallops, or rubs. RESPIRATORY: Breath sounds equal bilaterally. No accessory muscle use. GASTROINTESTINAL: Abdomen soft, non-tender, nondistended. MUSCULOSKELETAL: No cyanosis, or edema. BACK: Nontender without obvious deformity. <Andres Martinez - 05/03/18 22:02> GENERAL: Cachectic appearing female, with tremors laying in bed, sedated but occasionally will answer questions. She is oriented to person and place. SKIN: Warm and dry. HEAD: Normocephalic. EYES: No scleral icterus. No injection or drainage. NECK: Supple, trachea midline. No JVD or lymphadenopathy. CARDIOVASCULAR: Regular rate and rhythm without murmurs, gallops, or rubs. RESPIRATORY: Breath sounds equal bilaterally. No accessory muscle use. GASTROINTESTINAL: Abdomen soft, non-tender, nondistended. MUSCULOSKELETAL: No cyanosis, or edema. BACK: Nontender without obvious deformity. <Katelyn Dunlap - 05/03/18 17:00> Results - Labs Result diagrams: 05/03/18 10:05 05/03/18 10:05 <Andres Martinez - 05/03/18 22:02> Abnormal lab results 05/03/18 05/03/18 05/03/18 Range/Units 10:05 10:05 10:05 WBC 15.8 H (4.0-11.0) th/mm3 Hgb 10.3 L (11.6-15.3) gm/dL Hct 29.6 L (35.0-46.0) % MCV 63.2 L (80.0-100.0) fL MCH 22.0 L (27.0-34.0) pg Plt Count 548 H (150-450) th/mm3 Neut % (Auto) 89.4 H (16.0-70.0) % Lymph % (Auto) 4.6 L (9.0-44.0) % Neut # (Auto) 14.1 H (1.8-7.7) th/mm3 Lymph # (Auto) 0.7 L (1.0-4.8) th/mm3 PT 12.7 H (9.8-11.6) sec APTT 39.0 H (23.4-31.7) sec Sodium 129 L (136-145) meq/L Potassium 2.6 L* (3.5-5.1) meq/L Chloride 84 L (98-107) meq/L Carbon Dioxide 33.7 H (21.0-32.0) meq/L BUN 28 H (7-18) mg/dL Creatinine 1.03 H (0.50-1.00) mg/dL Estimated GFR 59 L (>89) mL/min Random Glucose 146 H (74-106) mg/dL Lactic Acid (0.4-2.0) mmol/L Calcium 10.5 H (8.5-10.1) mg/dL Alkaline Phosphatase 152 H (45-117) U/L Total Creatine Kinase 23 L (26-192) U/L Troponin I Less than 0.02 L (0.02-0.05) ng/mL Total Protein 10.0 H (6.4-8.2) g/dL Albumin 2.3 L (3.4-5.0) g/dL Salicylates (2.8-20.0) mg/dL Acetaminophen Less than 2.0 L (10.0-30.0) mcg/mL 05/03/18 05/03/18 Range/Units 10:05 10:05 WBC (4.0-11.0) th/mm3 Hgb (11.6-15.3) gm/dL Hct (35.0-46.0) % MCV (80.0-100.0) fL MCH (27.0-34.0) pg Plt Count (150-450) th/mm3 Neut % (Auto) (16.0-70.0) % Lymph % (Auto) (9.0-44.0) % Neut # (Auto) (1.8-7.7) th/mm3 Lymph # (Auto) (1.0-4.8) th/mm3 PT (9.8-11.6) sec APTT (23.4-31.7) sec Sodium (136-145) meq/L Potassium (3.5-5.1) meq/L Chloride (98-107) meq/L Carbon Dioxide (21.0-32.0) meq/L BUN (7-18) mg/dL Creatinine (0.50-1.00) mg/dL Estimated GFR (>89) mL/min Random Glucose (74-106) mg/dL Lactic Acid 5.3 H* (0.4-2.0) mmol/L Calcium (8.5-10.1) mg/dL Alkaline Phosphatase (45-117) U/L Total Creatine Kinase (26-192) U/L Troponin I (0.02-0.05) ng/mL Total Protein (6.4-8.2) g/dL Albumin (3.4-5.0) g/dL Salicylates 2.4 L (2.8-20.0) mg/dL Acetaminophen (10.0-30.0) mcg/mL Short CBC 05/03/18 Range/Units 10:05 WBC 15.8 H (4.0-11.0) th/mm3 Hgb 10.3 L (11.6-15.3) gm/dL Hct 29.6 L (35.0-46.0) % Plt Count 548 H (150-450) th/mm3 BMP 05/03/18 10:05 Sodium 129 L Potassium 2.6 L* Chloride 84 L Carbon Dioxide 33.7 H BUN 28 H Creatinine 1.03 H Calcium 10.5 H Cardiac Enzymes 05/03/18 Range/Units 10:05 Total Creatine Kinase 23 L (26-192) U/L Troponin I Less than 0.02 L (0.02-0.05) ng/mL Liver Function 05/03/18 Range/Units 10:05 Total Bilirubin 0.8 (0.2-1.0) mg/dL AST 26 (15-37) U/L ALT 26 (10-53) U/L Alkaline Phosphatase 152 H (45-117) U/L Albumin 2.3 L (3.4-5.0) g/dL <Andres Martinez - 05/03/18 22:02> Abnormal lab results 05/03/18 05/03/18 05/03/18 Range/Units 10:05 10:05 10:05 WBC 15.8 H (4.0-11.0) th/mm3 Hgb 10.3 L (11.6-15.3) gm/dL Hct 29.6 L (35.0-46.0) % MCV 63.2 L (80.0-100.0) fL MCH 22.0 L (27.0-34.0) pg Plt Count 548 H (150-450) th/mm3 Neut % (Auto) 89.4 H (16.0-70.0) % Lymph % (Auto) 4.6 L (9.0-44.0) % Neut # (Auto) 14.1 H (1.8-7.7) th/mm3 Lymph # (Auto) 0.7 L (1.0-4.8) th/mm3 PT 12.7 H (9.8-11.6) sec APTT 39.0 H (23.4-31.7) sec Sodium 129 L (136-145) meq/L Potassium 2.6 L* (3.5-5.1) meq/L Chloride 84 L (98-107) meq/L Carbon Dioxide 33.7 H (21.0-32.0) meq/L BUN 28 H (7-18) mg/dL Creatinine 1.03 H (0.50-1.00) mg/dL Estimated GFR 59 L (>89) mL/min Random Glucose 146 H (74-106) mg/dL Lactic Acid (0.4-2.0) mmol/L Calcium 10.5 H (8.5-10.1) mg/dL Alkaline Phosphatase 152 H (45-117) U/L Total Creatine Kinase 23 L (26-192) U/L Troponin I Less than 0.02 L (0.02-0.05) ng/mL Total Protein 10.0 H (6.4-8.2) g/dL Albumin 2.3 L (3.4-5.0) g/dL Salicylates (2.8-20.0) mg/dL Acetaminophen Less than 2.0 L (10.0-30.0) mcg/mL 05/03/18 05/03/18 Range/Units 10:05 10:05 WBC (4.0-11.0) th/mm3 Hgb (11.6-15.3) gm/dL Hct (35.0-46.0) % MCV (80.0-100.0) fL MCH (27.0-34.0) pg Plt Count (150-450) th/mm3 Neut % (Auto) (16.0-70.0) % Lymph % (Auto) (9.0-44.0) % Neut # (Auto) (1.8-7.7) th/mm3 Lymph # (Auto) (1.0-4.8) th/mm3 PT (9.8-11.6) sec APTT (23.4-31.7) sec Sodium (136-145) meq/L Potassium (3.5-5.1) meq/L Chloride (98-107) meq/L Carbon Dioxide (21.0-32.0) meq/L BUN (7-18) mg/dL Creatinine (0.50-1.00) mg/dL Estimated GFR (>89) mL/min Random Glucose (74-106) mg/dL Lactic Acid 5.3 H* (0.4-2.0) mmol/L Calcium (8.5-10.1) mg/dL Alkaline Phosphatase (45-117) U/L Total Creatine Kinase (26-192) U/L Troponin I (0.02-0.05) ng/mL Total Protein (6.4-8.2) g/dL Albumin (3.4-5.0) g/dL Salicylates 2.4 L (2.8-20.0) mg/dL Acetaminophen (10.0-30.0) mcg/mL Short CBC 05/03/18 Range/Units 10:05 WBC 15.8 H (4.0-11.0) th/mm3 Hgb 10.3 L (11.6-15.3) gm/dL Hct 29.6 L (35.0-46.0) % Plt Count 548 H (150-450) th/mm3 BMP 05/03/18 10:05 Sodium 129 L Potassium 2.6 L* Chloride 84 L Carbon Dioxide 33.7 H BUN 28 H Creatinine 1.03 H Calcium 10.5 H Cardiac Enzymes 05/03/18 Range/Units 10:05 Total Creatine Kinase 23 L (26-192) U/L Troponin I Less than 0.02 L (0.02-0.05) ng/mL Liver Function 05/03/18 Range/Units 10:05 Total Bilirubin 0.8 (0.2-1.0) mg/dL AST 26 (15-37) U/L ALT 26 (10-53) U/L Alkaline Phosphatase 152 H (45-117) U/L Albumin 2.3 L (3.4-5.0) g/dL <Katelyn Dunlap - 05/03/18 12:21> - Imaging Impressions Chest X-Ray 05/03/18 00:00 CONCLUSION: No acute cardiopulmonary disease. Chest X-Ray 05/03/18 09:05 CONCLUSION: Negative examination. <Andres Martinez - 05/03/18 22:02> Impressions Chest X-Ray 05/03/18 09:05 CONCLUSION: Negative examination. <Katelyn Dunlap - 05/03/18 12:21> Caprini VTE Risk Assessment Caprini VTE Risk Assessment: No/Low Risk (score <= 1) <Katelyn Dunlap - 17:00> Venkateshi Risk Assessment Model: Point Value = 1 Point Value = 2 Point Value = 3 Point Value = 5 Age 41-60 Minor surgery BMI > 25 kg/m2 Swollen legs Varicose veins or History of unexplained or recurrent spontaneous Oral contraceptives or hormone replacement Sepsis (< 1 month) Serious lung disease, including pneumonia (< 1 month) Abnormal pulmonary function Acute myocardial infarction Congestive heart failure (< 1 month) History of inflammatory bowel disease Medical patient at bed rest Age 61-74 Arthroscopic surgery Major open surgery (> 45 min) Laparoscopic surgery (> 45 min) Malignancy Confined to bed (> 72 hours) Immobilizing plaster cast Central venous access Age >= 75 History of VTE Family history of VTE Factor V Leiden Prothrombin [id number] Lupus anticoagulant Anticardiolipin antibodies Elevated serum homocysteine Heparin-induced thrombocytopenia Other congenital or acquired thrombophilia Stroke (< 1 month) Elective arthroplasty Hip, pelvis, or leg fracture Acute spinal cord injury (< 1 month) <Andres Martinez 05/03/18 22:02> Point Value = 1 Point Value = 2 Point Value = 3 Point Value = 5 Age 41-60 Minor surgery BMI > 25 kg/m2 Swollen legs Varicose veins or History of unexplained or recurrent spontaneous Oral contraceptives or hormone replacement Sepsis (< 1 month) Serious lung disease, including pneumonia (< 1 month) Abnormal pulmonary function Acute myocardial infarction Congestive heart failure (< 1 month) History of inflammatory bowel disease Medical patient at bed rest Age 61-74 Arthroscopic surgery Major open surgery (> 45 min) Laparoscopic surgery (> 45 min) Malignancy Confined to bed (> 72 hours) Immobilizing plaster cast Central venous access Age >= 75 History of VTE Family history of VTE Factor V Leiden Prothrombin [id number] Lupus anticoagulant Anticardiolipin antibodies Elevated serum homocysteine Heparin-induced thrombocytopenia Other congenital or acquired thrombophilia Stroke (< 1 month) Elective arthroplasty Hip, pelvis, or leg fracture Acute spinal cord injury (< 1 month) <Katelyn Dunlap - 05/03/18 17:00> Prophylaxis Regimen: Total Risk Factor Score Risk Level Prophylaxis Regimen 0-1 Low Early ambulation 2 Moderate Order ONE of the following: *Sequential Compression Device (SCD) *Heparin 5000 units SQ BID 3-4 Higher Order ONE of the following medications: *Heparin 5000 units SQ TID *Enoxaparin/Lovenox 40 mg SQ daily (WT < 150 kg, CrCl > 30 mL/min) *Enoxaparin/Lovenox 30 mg SQ daily (WT < 150 kg, CrCl > 10-29 mL/min) *Enoxaparin/Lovenox 30 mg SQ BID (WT < 150 kg, CrCl > 30 mL/min) AND/OR *Sequential Compression Device (SCD) 5 or more Highest Order ONE of the following medications: *Heparin 5000 units SQ TID (Preferred with Epidurals) *Enoxaparin/Lovenox 40 mg SQ daily (WT < 150 kg, CrCl > 30 mL/min) *Enoxaparin/Lovenox 30 mg SQ daily (WT < 150 kg, CrCl > 10-29 mL/min) *Enoxaparin/Lovenox 30 mg SQ BID (WT < 150 kg, CrCl > 30 mL/min) AND *Sequential Compression Device (SCD) <Andres Martinez - 05/03/18 22:02> Total Risk Factor Score Risk Level Prophylaxis Regimen 0-1 Low Early ambulation 2 Moderate Order ONE of the following: *Sequential Compression Device (SCD) *Heparin 5000 units SQ BID 3-4 Higher Order ONE of the following medications: *Heparin 5000 units SQ TID *Enoxaparin/Lovenox 40 mg SQ daily (WT < 150 kg, CrCl > 30 mL/min) *Enoxaparin/Lovenox 30 mg SQ daily (WT < 150 kg, CrCl > 10-29 mL/min) *Enoxaparin/Lovenox 30 mg SQ BID (WT < 150 kg, CrCl > 30 mL/min) AND/OR *Sequential Compression Device (SCD) 5 or more Highest Order ONE of the following medications: *Heparin 5000 units SQ TID (Preferred with Epidurals) *Enoxaparin/Lovenox 40 mg SQ daily (WT < 150 kg, CrCl > 30 mL/min) *Enoxaparin/Lovenox 30 mg SQ daily (WT < 150 kg, CrCl > 10-29 mL/min) *Enoxaparin/Lovenox 30 mg SQ BID (WT < 150 kg, CrCl > 30 mL/min) AND *Sequential Compression Device (SCD) <Katelyn Dunlap - 05/03/18 12:21> Assessment and Plan - Assessment (1) Sepsis Code(s): A41.9 - Sepsis, unspecified organism Status: Acute (2) Polysubstance abuse Code(s): F19.10 - Other psychoactive substance abuse, uncomplicated Status: Acute (3) History of bacterial endocarditis Code(s): Z86.79 - Personal history of other diseases of the circulatory system Status: Acute (4) Suicidal ideation Code(s): R45.851 - Suicidal ideations Status: Acute (5) DVT prophylaxis Status: Acute (6) Nutrition, metabolism, and development symptoms Code(s): R63.8 - Other symptoms and signs concerning food and fluid intake Status: Acute <Andres Martinez - 05/03/18 22:02> (1) Sepsis Code(s): A41.9 - Sepsis, unspecified organism Status: Acute Plan: Patient presents with elevated white count of 15.8, vital signs pulse at 104. Respiratory rate at 20. History of endocarditis. Lactic Acid: 5.3. Patient meets sepsis criteria. Status post 1 L bolus and 800 mL bolus of normal saline in ED. 1 g cefepime given in the ED. Trend Lactic acid. Continue on maintenance fluids at 100 mils an hour +40 M EQ's KCl. Chest x-ray unremarkable. Blood cultures pending. History of endocarditis. Concern for bacteremia. ID consulted. Patient left AMA without being treated for endocarditis. Last blood cultures positive for gram-positive cocci and gram-positive rods. Pansensitive. Will add vancomycin. Start cefepime 2 grams q 8 hours. (2) Polysubstance abuse Code(s): F19.10 - Other psychoactive substance abuse, uncomplicated Status: Acute Plan: Patient with history of polysubstance abuse. Currently withdrawing. CIWA protocol. Patient unable to tolerate p.o. due to nausea and vomiting. Patient currently hypertensive. 0.1 mg clonidine patch added. Haldol for agitation. (3) History of bacterial endocarditis Code(s): Z86.79 - Personal history of other diseases of the circulatory system Status: Acute Plan: Patient with history of bacterial endocarditis. Patient left AMA during last hospitalization and did not get adequate treatment. Concerning for bacteremia as patient was septic on admission. Vanc and cefepime currently on board. Patient was on Vanc and Zosyn during previous admission. Will await repeat blood cultures. ID consulted. (4) Suicidal ideation Code(s): R45.851 - Suicidal ideations Status: Acute Plan: Patient currently Zuñiga acted. Psychiatry consulted to evaluate and treat. (5) DVT prophylaxis Status: Acute Plan: Lovenox 40. (6) Nutrition, metabolism, and development symptoms Code(s): R63.8 - Other symptoms and signs concerning food and fluid intake Status: Acute Plan: Fluids:normal saline plus KCl 40 M EQ's 100 mils/hour. Electrolytes: Hypokalemic at 2.6. Replacing with maintenance fluids. Follow-up CMP in a.m. Nutrition: Diabetic diet. <Katelyn Dunlap - 05/03/18 17:29> - Assessment and Plan 42-year-old female with a past medical history of polysubstance abuse, endocarditis presents Via [place] act for polysubstance withdrawal. Patient was found to be septic on admission. Elevated lactic acid of 5.2. Blood cultures ordered. Patient currently on Vanc and cefepime. ID consulted for endocarditis workup. [facility] protocol. <Katelyn Dunlap - 05/03/18 17:24> Discussed Condition With: Dr. Martinez and Dr. Wadsworth. <Katelyn Dunlap 05/03/18 17:29> - Attending Attestation Patient case discussed with resident physicians I have independently examined the patient I have read the above note and agree with the assessment and plan as discussed with me I was involved in all medical decision making for this patient Andres Martinez MD <Andres Martinez - 05/03/18 22:02>
[2018-05-03] MEDS ORDERED: Acetaminophen 325 MG Tablet PO PRN (12:41)
[2018-05-03] MEDS ORDERED: LORazepam 1 MG Tablet PO PRN (12:41)
[2018-05-03] MEDS ORDERED: Bisacodyl 10 MG Supp RECTAL PRN (12:41)
--- NOTE | 2018-05-03 13:13 | XR ---
EXAM DATE: 05/03/2018 1:09 PM EST AGE/SEX: 42 years / Female INDICATIONS: Shortness of breath and cough. CLINICAL DATA: This is the patient's initial encounter. Patient reports that signs and symptoms have been present for 1 day and indicates a pain score of Nonresponsive. MEDICAL/SURGICAL HISTORY: . Pericarditis. Endocarditis. Transient ischemic attack. Cerebrovascu lar accident. None. . [place]PAR[place] [facility] [place]. . FINDINGS: The lungs are clear without infiltrate, nodule, or mass. There is no appreciable pleural effusion fo r technique. Heart and mediastinum are unremarkable. CONCLUSION: No acute cardiopulmonary disease. Electronically signed by: Laurie Calderon MD Board Certified Radiologist 05/03/2018 1:12 PM EST
[2018-05-03] MEDS: Haloperidol Inj 5 MG/ML Ampul IV.PUSH PRN ×2 (14:36→14:57)
[2018-05-03] MEDS ORDERED: Vancomycin Consult Pharmacy OTHER PRN (15:44)
[2018-05-03] MEDS ORDERED: Vancomycin Inj 1,000 MG in Sodium Chlor 0.9% Inj 250 ML IV.SIG SCH (16:00)
[2018-05-03] MEDS ORDERED: Vancomycin Inj 750 MG in Sodium Chlor 0.9% Inj 250 ML IV.SIG SCH (18:00)
[2018-05-03] MEDS: Enoxaparin Inj 40 MG/0.4 ML Syringe SQ SCH (18:35)
[2018-05-03] MEDS: Senna/Docusate Sodium 8.6/50 MG Tablet PO SCH (20:59)
[2018-05-04 04:51] LABS: Baso % (Auto) 0.1 % (0.0-2.0); Hematocrit 27.8 % (35.0-46.0); Hemoglobin 8.5 gm/dL (11.6-15.3); Lymph # (Auto) 0.8 th/mm3 (1.0-4.8); Lymph % (Auto) 5.9 % (9.0-44.0); Mean Corpuscular Hemoglobin 19.8 pg (27.0-34.0); Mean Corpuscular Volume 64.7 fL (80.0-100.0); Mean Platelet Volume 7.2 fL (7.0-11.0); Mono # (Auto) 0.9 th/mm3 (0.0-0.9); Mono % (Auto) 6.4 % (0.0-8.0); Neut # (Auto) 12.1 th/mm3 (1.8-7.7); Neut % (Auto) 87.6 % (16.0-70.0); Platelet Count 397 th/mm3 (150-450); Red Cell Distribution Width 17.3 % (11.6-17.2); White Blood Count 13.8 th/mm3 (4.0-11.0)
[2018-05-04 04:57] LABS: Mean Corpuscular HGB Conc 30.7 % (32.0-36.0)
[2018-05-04 05:05] LABS: Alanine Aminotransferase 17 U/L (10-53); Albumin 1.6 g/dL (3.4-5.0); Alkaline Phosphatase 121 U/L (45-117); Anion Gap 7 meq/L (5-15); Aspartate Aminotransferase 28 U/L (15-37); Blood Urea Nitrogen 17 mg/dL (7-18); Calcium 8.3 mg/dL (8.5-10.1); Carbon Dioxide 25.9 meq/L (21.0-32.0); Chloride 103 meq/L (98-107); Glomerular Filtration Rate Greater Than 89 mL/min (>89); Glucose,Random 101 mg/dL (74-106); Sodium 136 meq/L (136-145); Total Protein 7.2 g/dL (6.4-8.2)
[2018-05-04] MEDS ORDERED: Potassium Chlor 20 mEq Premix 20 MEQ/100 ML PIGGYBACK IV.SIG ONE (09:00)
[2018-05-04] MEDS: Senna/Docusate Sodium 8.6/50 MG Tablet PO SCH ×2 (09:39→20:27)
[2018-05-04] MEDS: hydrALAZINE 25 MG Tablet PO SCH ×2 (09:40→12:33)
--- NOTE | 2018-05-04 09:52 | P.CONID ---
History of Present Illness Service: Infectious disease Consult date: 05/04/18 Requesting Physician: Andres Martinez Reason for Consult: Evaluate patient with history of endocarditis Primary Care Provider: UNKNOWN History of Present Illness: Patient seen and examined. Records reviewed. Patient is medicated and sleeping and unable to give any history. I have reviewed her multiple admissions and ED visits on [facility]. Patient is a 42-year-old female, brought into the hospital under [place] act initiated by PD. She has history of polysubstance abuse and apparently was running out of medications to use and afraid that she is going to go into withdrawals. 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 At that time she had evidence of multiple embolization to different organs including the brain, as well as evidence of septic arthritis. She stabilized, and was discharged to get IV antibiotics in the outpatient infusion clinic but apparently has not been compliant and was using her PICC line for her drugs. She was readmitted to the hospital and plan at that time was for her to complete her treatment in house. Patient however signed out AMA. Since then she has had multiple ED visits with different complaints. There was an ED visit on February 28 and at that time she had fever and chills as her complaints. She had 2 blood cultures done at that time and they grew MSSA. She really has not had any treatment for that MSSA bacteremia. She has had other admissions but has signed out AMA. On this admission patient is afebrile. Her white count is elevated. 2 blood cultures done yesterday are now reported as growing gram-positive cocci. She has been known to use IV Dilaudid, heroin, cocaine, and meth. She is not hypoxic. There is been no report of any fever or chills at home. She has not been complaining of any respiratory GI or any urinary complaints. Infectious disease consultation has been requested to assist with evaluation and treatment of this patient with history of endocarditis, and polysubstance abuse. Review of Systems unobtainable due to mental status PMFSH - History History Provided By: Patient - Medical History Medical History: Medical History (Last Reviewed 05/04/18 @ 09:46 by Kassandra Javier MD) CVA (cerebral vascular accident) Endocarditis Hepatitis C IV drug abuse Laceration of kidney - Surgical History Surgical History: Surgical History (Last Reviewed 05/04/18 @ 09:46 by Kassandra Javier MD) Hx of hand surgery - Family History Family History: Family History (Last Reviewed 05/04/18 @ 09:46 by Kassandra Javier MD) Other Family history unknown - Tobacco History Second Hand Smoke Exposure: Yes Tobacco Use In Past 30 Days: Yes Smoking Status: Current every day smoker Tobacco Type: Cigarettes - Alcohol History How Often Do You Have a Drink Containing Alcohol: Never - Substance Use History Substance History: Active Abuse - Substance Use Type Crack/Cocaine Status: Active Route Used: Inhalation Reason for Use: Calm Down - Immunization History Tetanus Immunization: Unsure Medications and Allergies Active Medications: Active Medications Acetaminophen (Tylenol) 650 mg PO Q4H PRN PRN Reason: Temp > 100.4 Al Hydroxide/Mg Hydroxide (Milk Of Magndelmer Lino) 30 ml PO Q12H PRN PRN Reason: Mild Constipation Bisacodyl (Dulcolax Supp) 10 mg RECTAL DAILY PRN PRN Reason: SEVERE CONSITIPATION Clonidine HCl (Catapress-Tts 0.1 Mg Patch.7d) 1 patch T-DERMAL Q7D [facility] Last Admin: 05/03/18 20:00 Dose: 1 patch Enalaprilat (Vasotec Inj) 1.25 mg IV.PUSH Q6H PRN PRN Reason: SBP>=180 or DBP>=100 Enoxaparin Sodium (Lovenox Inj) 40 mg SQ Q24H [facility] Last Admin: 05/03/18 18:35 Dose: 40 mg Flumazenil (Romazecon Inj) 0.2 mg IV.PUSH Q1M PRN PRN Reason: OVERSEDATION Haloperidol Lactate (Haldol Inj) 1 mg IV.PUSH Q15M PRN PRN Reason: for severe agitation Last Admin: 05/03/18 14:57 Dose: 1 mg Hydralazine HCl (Apresoline) 25 mg PO TID [facility] Last Admin: 05/04/18 09:40 Dose: Not Given Sodium Chloride (Ns Inj) 1,000 mls @ 0 mls/hr IV.SIG .Q0M [facility] Last Infusion: 05/03/18 11:55 Dose: Infused Sodium Chloride (Ns Inj) 800 mls @ 0 mls/hr IV.SIG .Q0M [facility] Last Infusion: 05/03/18 11:54 Dose: Infused Potassium Chloride/Sodium Chloride (Ns + Kcl 40 Meq Inj) 1,000 mls @ 100 mls/ hr IV.CONT .Q10H [facility] Last Admin: 05/04/18 00:35 Dose: 100 mls/hr Vancomycin HCl 750 mg/ Sodium (Chloride) 257.5 mls @ 257.5 mls/hr IV.SIG Q24H [facility] Last Infusion: 05/03/18 22:14 Dose: Infused Cefepime HCl 2,000 mg/ Sodium (Chloride) 100 mls @ 200 mls/hr IV.SIG Q8H [facility] Last Admin: 05/04/18 09:40 Dose: 200 mls/hr Potassium Chloride (Kcl 20 Meq Premix Inj) 20 meq in 100 mls @ 50 mls/hr IV.SIG ONCE ONE Stop: 05/04/18 10:59 Last Admin: 05/04/18 09:40 Dose: 50 mls/hr Lactulose (Lactulose Liq) 30 ml PO DAILY PRN PRN Reason: SEVERE CONSITIPATION Lorazepam (Ativan) 1 mg PO Q4H PRN PRN Reason: for CIWA 8-10 Lorazepam (Ativan) 2 mg PO Q2H PRN PRN Reason: for CIWA 11-14 Lorazepam (Ativan Inj) 2 mg IV.PUSH Q2H PRN PRN Reason: for CIWA 11-14 Last Admin: 05/04/18 07:42 Dose: 2 mg Lorazepam (Ativan Inj) 2 mg IV.PUSH Q1H PRN PRN Reason: for CIWA 15-20 Last Admin: 05/04/18 02:26 Dose: 2 mg Lorazepam (Ativan Inj) 2 mg IV.PUSH Q15M PRN PRN Reason: for CIWA > 20 Lorazepam (Ativan Inj) 1 mg IV.PUSH Q4H PRN PRN Reason: for CIWA 8-10 Miscellaneous Information ([facility] Ordered Lab Info) 0 each OTHER ONCE ONE Stop: 05/06/18 17:46 Ondansetron HCl (Zofran Inj) 4 mg IV.PUSH Q6H PRN PRN Reason: NAUSEA OR VOMITING Patch Removal (Remove Old Patch) 1 each T-DERMAL Q7D [facility] Pharmacy Profile Note (Vancomycin Consult Pharmacy) 1 each OTHER UNSCH PRN PRN Reason: Pharmacy to dose Senna/Docusate Sodium (Silvia-Colace) 1 tab PO BID [facility] Last Admin: 05/04/18 09:39 Dose: Not Given Sennosides (Senokot) 17.2 mg PO Q12H PRN PRN Reason: Moderate Constipation Sodium Chloride (Ns Flush) 2 ml IV.FLUSH BID [facility] Last Admin: 05/04/18 09:39 Dose: 2 ml Sodium Chloride (Ns Flush) 2 ml IV.FLUSH PRN PRN PRN Reason: FLUSH AFTER USING IV ACCESS Allergies Allergy/AdvReac Type Severity Reaction Status Date / Time No Known Allergies Allergy Verified 05/03/18 09:02 Home Medications Medication Instructions Recorded Confirmed Type No Known Home Medications 12/18/17 05/03/18 History Exam Vital signs: Vital Signs 05/03/18 11:00 05/03/18 12:40 05/03/18 13:06 Pulse Rate 95 H 99 H Respiratory Rate 20 26 H Blood Pressure 177/107 H Pulse Oximetry 99 05/03/18 14:39 05/03/18 15:05 05/03/18 15:06 Pulse Rate 115 H 102 H Respiratory Rate 26 H 16 Blood Pressure 210/131 H 188/92 H Pulse Oximetry 98 98 05/03/18 18:30 05/03/18 19:00 05/03/18 19:45 Pulse Rate 114 H 109 H Respiratory Rate 22 24 24 Blood Pressure 191/98 H 193/87 H Pulse Oximetry 99 05/03/18 19:49 05/03/18 20:00 05/03/18 20:02 Pulse Rate 119 H 112 H 117 H Respiratory Rate 36 H 53 H 43 H Blood Pressure 143/105 H Pulse Oximetry 96 99 98 05/03/18 20:04 05/03/18 21:00 05/03/18 21:09 Pulse Rate 119 H 122 H 118 H Respiratory Rate 39 H 41 H 44 H Blood Pressure 187/108 H 208/113 H 193/103 H Pulse Oximetry 98 97 99 05/03/18 22:00 05/03/18 23:00 05/04/18 00:00 Pulse Rate 109 H 98 H 109 H Respiratory Rate 46 H 28 H 36 H Blood Pressure 192/91 H 175/99 H 164/113 H Pulse Oximetry 100 99 98 05/04/18 00:18 05/04/18 01:00 05/04/18 01:45 Pulse Rate 99 H 87 101 H Respiratory Rate 31 H 23 35 H Blood Pressure 168/102 H 204/98 H 178/95 H Pulse Oximetry 98 99 100 05/04/18 02:00 05/04/18 02:15 05/04/18 02:16 Pulse Rate 102 H 102 H 102 H Respiratory Rate 34 H 37 H 28 H Blood Pressure 180/105 H 183/112 H 179/110 H Pulse Oximetry 100 100 100 05/04/18 02:30 05/04/18 02:45 05/04/18 03:00 Pulse Rate 96 H 97 H 97 H Respiratory Rate 24 25 H 29 H Blood Pressure 169/97 H 171/96 H 157/90 H Pulse Oximetry 99 99 99 05/04/18 03:15 05/04/18 03:32 05/04/18 04:00 Pulse Rate 101 H 103 H 96 H Respiratory Rate 33 H 32 H 33 H Blood Pressure 189/102 H 179/100 H 186/103 H Pulse Oximetry 100 99 99 05/04/18 05:00 05/04/18 08:49 Pulse Rate 104 H Respiratory Rate 37 H Blood Pressure 175/110 H Pulse Oximetry 99 100 Intake & Output 05/03/18 05/04/18 05/04/18 18:59 06:59 18:59 Intake Total 1900 / 1900 1457.5 / 1457.5 Balance 1900 / 1900 1457.5 / 1457.5 Weight 45.359 kg 39.2 kg Intake: IV 1900 / 1900 1457.5 / 1457.5 NS + KCl 40 mEq Inj 1,000 ML @ 1000 / 1000 100 mls/hr IV.CONT .Q10H [facility] Rx #:[id number] Maxipime Inj 1,000 MG In NS Inj 100 / 100 100 ML @ 200 mls/hr IV.SIG ONCE ONE Rx#:[id number] Maxipime Inj 2,000 MG In NS Inj 200 / 200 100 ML @ 200 mls/hr IV.SIG Q8H [facility] Rx#:[id number] NS Inj 1,000 ML @ Wide Open IV. 1800 / 1800 SIG .Q0M [facility] Rx#:[id number] Vancomycin Inj 750 MG In NS Inj 257.5 / 257.5 250 ML @ 257.5 mls/hr IV.SIG Q24H [facility] Rx#:[id number] Other: # Incontinent Voids 2 Narrative: Physical examination GENERAL: Patient is a cachectic, well-developed female, sleeping got medicated with ativan, not in respiratory distress. SKIN: Cool and dry. No generalized rash. Poor turgor. Has track recinos in UE. HEAD: Atraumatic. Normocephalic. No temporal wasting, or tenderness. EYES: Golden conjunctiva. No petechia or hemorrhage. Pupils equal, dilated, round and reactive to light. No scleral icterus. No injection or drainage. EARS, NOSE AND THROAT: Nose without bleeding or purulent nasal discharge. Unable to examine oropharynx NECK: Trachea midline. Supple and not tender, no meningeal signs CARDIOVASCULAR: Regular rate and rhythm. No murmurs, rubs or gallops heard RESPIRATORY: Clear to auscultation. Breath sounds equal bilaterally. No rales , wheezing or rhonchi ABDOMEN: Soft, flat, non-tender, nondistended. Bowel sounds present and normoactive. Has LN both groin EXTREMITIES: No clubbing, cyanosis, or edema. No joint effusion. No calf tenderness. No embolic lesions NEUROLOGICAL: Just got medicated. No Babinski or ankle clonus PSYCHIATRIC: Unable to assess LINE: No evidence of infection Results - Labs CBC & Chem 7: 05/04/18 03:08 05/04/18 03:08 Labs: Laboratory Results - last 24 hr 05/03/18 05/03/18 05/03/18 10:05 10:05 10:05 WBC 15.8 H RBC 4.68 Hgb 10.3 L Hct 29.6 L MCV 63.2 L MCH 22.0 L MCHC 34.7 RDW 17.1 Plt Count 548 H MPV 7.4 Neut % (Auto) 89.4 H Lymph % (Auto) 4.[address] [place] % (Auto) 5.9 Eos % (Auto) 0.0 Baso % (Auto) 0.1 Neut # (Auto) 14.1 H Lymph # (Auto) 0.[address] [place] # (Auto) 0.9 Eos # (Auto) 0.0 Baso # (Auto) 0.0 WBC Differential . Differential Comment Auto diff final PT 12.7 H INR 1.3 APTT 39.0 H Sodium 129 L Potassium 2.6 L* Chloride 84 L Carbon Dioxide 33.7 H Anion Gap 11 BUN 28 H Creatinine 1.03 H Estimated GFR 59 L POC Glucose Random Glucose 146 H Lactic Acid Calcium 10.5 H Magnesium 2.1 Total Bilirubin 0.8 AST 26 ALT 26 Alkaline Phosphatase 152 H Total Creatine Kinase 23 L Troponin I Less than 0.02 L Total Protein 10.0 H Albumin 2.3 L TSH 0.656 Nasal Screen MRSA (PCR) Salicylates Acetaminophen Less than 2.0 L Serum Alcohol Less than 3 05/03/18 05/03/18 05/03/18 10:05 10:05 14:53 WBC RBC Hgb Hct MCV MCH MCHC RDW Plt Count MPV Neut % (Auto) Lymph % (Auto) [place] % (Auto) Eos % (Auto) Baso % (Auto) Neut # (Auto) Lymph # (Auto) [place] # (Auto) Eos # (Auto) Baso # (Auto) WBC Differential Differential Comment PT INR APTT Sodium Potassium Chloride Carbon Dioxide Anion Gap BUN Creatinine Estimated GFR POC Glucose Random Glucose Lactic Acid 5.3 H* 1.3 Calcium Magnesium Total Bilirubin AST ALT Alkaline Phosphatase Total Creatine Kinase Troponin I Total Protein Albumin TSH Nasal Screen MRSA (PCR) Salicylates 2.4 L Acetaminophen Serum Alcohol 05/03/18 05/03/18 05/04/18 18:50 22:09 03:07 WBC RBC Hgb Hct MCV MCH MCHC RDW Plt Count MPV Neut % (Auto) Lymph % (Auto) [place] % (Auto) Eos % (Auto) Baso % (Auto) Neut # (Auto) Lymph # (Auto) [place] # (Auto) Eos # (Auto) Baso # (Auto) WBC Differential Differential Comment PT INR APTT Sodium Potassium Chloride Carbon Dioxide Anion Gap BUN Creatinine Estimated GFR POC Glucose 121 H 117 H Random Glucose Lactic Acid Calcium Magnesium Total Bilirubin AST ALT Alkaline Phosphatase Total Creatine Kinase Troponin I Total Protein Albumin TSH Nasal Screen MRSA (PCR) Not detected Salicylates Acetaminophen Serum Alcohol 05/04/18 05/04/18 03:08 03:08 WBC 13.8 H RBC 4.30 Hgb 8.5 L Hct 27.8 L MCV 64.7 L MCH 19.8 L MCHC 30.7 L RDW 17.3 H Plt Count 397 MPV 7.2 Neut % (Auto) 87.6 H Lymph % (Auto) 5.[address] % (Auto) 6.4 Eos % (Auto) 0.0 Baso % (Auto) 0.1 Neut # (Auto) 12.1 H Lymph # (Auto) 0.[address] [place] # (Auto) 0.9 Eos # (Auto) 0.0 Baso # (Auto) 0.0 WBC Differential . Differential Comment Auto diff final PT INR APTT Sodium 136 Potassium 3.0 L Chloride 103 D Carbon Dioxide 25.9 Anion Gap 7 BUN 17 Creatinine 0.57 Estimated GFR Greater than 89 POC Glucose Random Glucose 101 Lactic Acid Calcium 8.3 L D Magnesium Total Bilirubin 0.5 AST 28 ALT 17 Alkaline Phosphatase 121 H Total Creatine Kinase Troponin I Total Protein 7.2 D Albumin 1.6 L D TSH Nasal Screen MRSA (PCR) Salicylates Acetaminophen Serum Alcohol - Imaging Impressions Chest X-Ray 05/03/18 00:00 CONCLUSION: No acute cardiopulmonary disease. Assessment and Plan - Plan Impression Hx Strep MV IE, not sure if she completed Rx last summer Now with MSSA bacteremia and likely new IE due to continued IVDU Polysubstance abuse - heroin, cocaine, dilaudid, meth Cachexia Recommendation Add IV Ancef IV vanco to cover MRSA while C/S pending Echo limited to look at valves Repeat BC to document clearing Follow temps Follow C/S Monitor progress Very difficult Rx plan on this patient due to her poor compliance and frequent AMA I will follow along with you Thank you for this consultation
--- NOTE | 2018-05-04 10:50 | P.PNFP ---
Subjective Interval history: Patient was seen and examined this morning. She was very sleepy and barely responded to questions -she only shook her head in response to a question about if she has chest pain. Nurse at bedside states that she has been stable although she has required 2 mg IV Ativan [id number]. <Heather Gonzalez U - 05/04/18 13:48> Results - Labs Result diagrams: 05/04/18 03:08 05/04/18 03:08 <Andres Martinez - 05/04/18 14:28> Abnormal lab results 05/03/18 05/04/18 05/04/18 Range/Units 22:09 03:07 03:08 WBC 13.8 H (4.0-11.0) th/mm3 Hgb 8.5 L (11.6-15.3) gm/dL Hct 27.8 L (35.0-46.0) % MCV 64.7 L (80.0-100.0) fL MCH 19.8 L (27.0-34.0) pg MCHC 30.7 L (32.0-36.0) % RDW 17.3 H (11.6-17.2) % Neut % (Auto) 87.6 H (16.0-70.0) % Lymph % (Auto) 5.9 L (9.0-44.0) % Neut # (Auto) 12.1 H (1.8-7.7) th/mm3 Lymph # (Auto) 0.8 L (1.0-4.8) th/mm3 Potassium (3.5-5.1) meq/L POC Glucose 121 H 117 H (68-110) mg/dl Calcium (8.5-10.1) mg/dL Alkaline Phosphatase (45-117) U/L Albumin (3.4-5.0) g/dL 05/04/18 Range/Units 03:08 WBC (4.0-11.0) th/mm3 Hgb (11.6-15.3) gm/dL Hct (35.0-46.0) % MCV (80.0-100.0) fL MCH (27.0-34.0) pg MCHC (32.0-36.0) % RDW (11.6-17.2) % Neut % (Auto) (16.0-70.0) % Lymph % (Auto) (9.0-44.0) % Neut # (Auto) (1.8-7.7) th/mm3 Lymph # (Auto) (1.0-4.8) th/mm3 Potassium 3.0 L (3.5-5.1) meq/L POC Glucose (68-110) mg/dl Calcium 8.3 L D (8.5-10.1) mg/dL Alkaline Phosphatase 121 H (45-117) U/L Albumin 1.6 L D (3.4-5.0) g/dL Short CBC 05/04/18 Range/Units 03:08 WBC 13.8 H (4.0-11.0) th/mm3 Hgb 8.5 L (11.6-15.3) gm/dL Hct 27.8 L (35.0-46.0) % Plt Count 397 (150-450) th/mm3 BMP 05/04/18 03:08 Sodium 136 Potassium 3.0 L Chloride 103 D Carbon Dioxide 25.9 BUN 17 Creatinine 0.57 Calcium 8.3 L D Liver Function 05/04/18 Range/Units 03:08 Total Bilirubin 0.5 (0.2-1.0) mg/dL AST 28 (15-37) U/L ALT 17 (10-53) U/L Alkaline Phosphatase 121 H (45-117) U/L Albumin 1.6 L D (3.4-5.0) g/dL <Andres Martinez - 05/04/18 14:28> Abnormal lab results 05/03/18 05/03/18 05/03/18 Range/Units 10:05 10:05 10:05 WBC (4.0-11.0) th/mm3 Hgb (11.6-15.3) gm/dL Hct (35.0-46.0) % MCV (80.0-100.0) fL MCH (27.0-34.0) pg MCHC (32.0-36.0) % RDW (11.6-17.2) % Neut % (Auto) (16.0-70.0) % Lymph % (Auto) (9.0-44.0) % Neut # (Auto) (1.8-7.7) th/mm3 Lymph # (Auto) (1.0-4.8) th/mm3 Sodium 129 L (136-145) meq/L Potassium 2.6 L* (3.5-5.1) meq/L Chloride 84 L (98-107) meq/L Carbon Dioxide 33.7 H (21.0-32.0) meq/L BUN 28 H (7-18) mg/dL Creatinine 1.03 H (0.50-1.00) mg/dL Estimated GFR 59 L (>89) mL/min POC Glucose (68-110) mg/dl Random Glucose 146 H (74-106) mg/dL Lactic Acid 5.3 H* (0.4-2.0) mmol/L Calcium 10.5 H (8.5-10.1) mg/dL Alkaline Phosphatase 152 H (45-117) U/L Total Creatine Kinase 23 L (26-192) U/L Troponin I Less than 0.02 L (0.02-0.05) ng/mL Total Protein 10.0 H (6.4-8.2) g/dL Albumin 2.3 L (3.4-5.0) g/dL Salicylates 2.4 L (2.8-20.0) mg/dL Acetaminophen Less than 2.0 L (10.0-30.0) mcg/mL 05/03/18 05/04/18 05/04/18 Range/Units 22:09 03:07 03:08 WBC 13.8 H (4.0-11.0) th/mm3 Hgb 8.5 L (11.6-15.3) gm/dL Hct 27.8 L (35.0-46.0) % MCV 64.7 L (80.0-100.0) fL MCH 19.8 L (27.0-34.0) pg MCHC 30.7 L (32.0-36.0) % RDW 17.3 H (11.6-17.2) % Neut % (Auto) 87.6 H (16.0-70.0) % Lymph % (Auto) 5.9 L (9.0-44.0) % Neut # (Auto) 12.1 H (1.8-7.7) th/mm3 Lymph # (Auto) 0.8 L (1.0-4.8) th/mm3 Sodium (136-145) meq/L Potassium (3.5-5.1) meq/L Chloride (98-107) meq/L Carbon Dioxide (21.0-32.0) meq/L BUN (7-18) mg/dL Creatinine (0.50-1.00) mg/dL Estimated GFR (>89) mL/min POC Glucose 121 H 117 H (68-110) mg/dl Random Glucose (74-106) mg/dL Lactic Acid (0.4-2.0) mmol/L Calcium (8.5-10.1) mg/dL Alkaline Phosphatase (45-117) U/L Total Creatine Kinase (26-192) U/L Troponin I (0.02-0.05) ng/mL Total Protein (6.4-8.2) g/dL Albumin (3.4-5.0) g/dL Salicylates (2.8-20.0) mg/dL Acetaminophen (10.0-30.0) mcg/mL 05/04/18 Range/Units 03:08 WBC (4.0-11.0) th/mm3 Hgb (11.6-15.3) gm/dL Hct (35.0-46.0) % MCV (80.0-100.0) fL MCH (27.0-34.0) pg MCHC (32.0-36.0) % RDW (11.6-17.2) % Neut % (Auto) (16.0-70.0) % Lymph % (Auto) (9.0-44.0) % Neut # (Auto) (1.8-7.7) th/mm3 Lymph # (Auto) (1.0-4.8) th/mm3 Sodium (136-145) meq/L Potassium 3.0 L (3.5-5.1) meq/L Chloride (98-107) meq/L Carbon Dioxide (21.0-32.0) meq/L BUN (7-18) mg/dL Creatinine (0.50-1.00) mg/dL Estimated GFR (>89) mL/min POC Glucose (68-110) mg/dl Random Glucose (74-106) mg/dL Lactic Acid (0.4-2.0) mmol/L Calcium 8.3 L D (8.5-10.1) mg/dL Alkaline Phosphatase 121 H (45-117) U/L Total Creatine Kinase (26-192) U/L Troponin I (0.02-0.05) ng/mL Total Protein (6.4-8.2) g/dL Albumin 1.6 L D (3.4-5.0) g/dL Salicylates (2.8-20.0) mg/dL Acetaminophen (10.0-30.0) mcg/mL Short CBC 05/04/18 Range/Units 03:08 WBC 13.8 H (4.0-11.0) th/mm3 Hgb 8.5 L (11.6-15.3) gm/dL Hct 27.8 L (35.0-46.0) % Plt Count 397 (150-450) th/mm3 BMP 05/03/18 05/04/18 10:05 03:08 Sodium 129 L 136 Potassium 2.6 L* 3.0 L Chloride 84 L 103 D Carbon Dioxide 33.7 H 25.9 BUN 28 H 17 Creatinine 1.03 H 0.57 Calcium 10.5 H 8.3 L D Cardiac Enzymes 05/03/18 Range/Units 10:05 Total Creatine Kinase 23 L (26-192) U/L Troponin I Less than 0.02 L (0.02-0.05) ng/mL Liver Function 05/03/18 05/04/18 Range/Units 10:05 03:08 Total Bilirubin 0.8 0.5 (0.2-1.0) mg/dL AST 26 28 (15-37) U/L ALT 26 17 (10-53) U/L Alkaline Phosphatase 152 H 121 H (45-117) U/L Albumin 2.3 L 1.6 L D (3.4-5.0) g/dL <Heather Gonzalez U - 05/04/18 10:50> - Imaging Impressions Chest X-Ray 05/03/18 00:00 CONCLUSION: No acute cardiopulmonary disease. <Heather Gonzalez U - 05/04/18 10:50> Physical Exam Vital signs: Vital Signs 05/03/18 14:39 05/03/18 15:05 05/03/18 15:06 Temperature Pulse Rate 115 H 102 H Respiratory Rate 26 H 16 Blood Pressure 210/131 H 188/92 H Pulse Oximetry 98 98 05/03/18 18:30 05/03/18 19:00 05/03/18 19:45 Temperature Pulse Rate 114 H 109 H Respiratory Rate 22 24 24 Blood Pressure 191/98 H 193/87 H Pulse Oximetry 99 05/03/18 19:49 05/03/18 20:00 05/03/18 20:02 Temperature Pulse Rate 119 H 112 H 117 H Respiratory Rate 36 H 53 H 43 H Blood Pressure 143/105 H Pulse Oximetry 96 99 98 05/03/18 20:04 05/03/18 21:00 05/03/18 21:09 Temperature Pulse Rate 119 H 122 H 118 H Respiratory Rate 39 H 41 H 44 H Blood Pressure 187/108 H 208/113 H 193/103 H Pulse Oximetry 98 97 99 05/03/18 22:00 05/03/18 23:00 05/04/18 00:00 Temperature Pulse Rate 109 H 98 H 109 H Respiratory Rate 46 H 28 H 36 H Blood Pressure 192/91 H 175/99 H 164/113 H Pulse Oximetry 100 99 98 05/04/18 00:18 05/04/18 01:00 05/04/18 01:45 Temperature Pulse Rate 99 H 87 101 H Respiratory Rate 31 H 23 35 H Blood Pressure 168/102 H 204/98 H 178/95 H Pulse Oximetry 98 99 100 05/04/18 02:00 05/04/18 02:15 05/04/18 02:16 Temperature Pulse Rate 102 H 102 H 102 H Respiratory Rate 34 H 37 H 28 H Blood Pressure 180/105 H 183/112 H 179/110 H Pulse Oximetry 100 100 100 05/04/18 02:30 05/04/18 02:45 05/04/18 03:00 Temperature Pulse Rate 96 H 97 H 97 H Respiratory Rate 24 25 H 29 H Blood Pressure 169/97 H 171/96 H 157/90 H Pulse Oximetry 99 99 99 05/04/18 03:15 05/04/18 03:32 05/04/18 04:00 Temperature Pulse Rate 101 H 103 H 96 H Respiratory Rate 33 H 32 H 33 H Blood Pressure 189/102 H 179/100 H 186/103 H Pulse Oximetry 100 99 99 05/04/18 05:00 05/04/18 08:00 05/04/18 08:49 Temperature 98.6 F Pulse Rate 104 H 100 H Respiratory Rate 37 H 30 H Blood Pressure 175/110 H 163/98 H Pulse Oximetry 99 99 100 Intake & Output 05/03/18 05/04/18 05/04/18 18:59 06:59 18:59 Intake Total 1900 / 1900 1457.5 / 1457.5 1300 / 1300 Balance 1900 / 1900 1457.5 / 1457.5 1300 / 1300 Weight 45.359 kg 39.2 kg Intake: IV 1900 / 1900 1457.5 / 1457.5 1300 / 1300 NS + KCl 40 mEq Inj 1,000 ML @ 1000 / 1000 1000 / 1000 100 mls/hr IV.CONT .Q10H RENU Rx #:[id number] Maxipime Inj 1,000 MG In NS Inj 100 / 100 100 ML @ 200 mls/hr IV.SIG ONCE ONE Rx#:[id number] Maxipime Inj 2,000 MG In NS Inj 200 / 200 100 / 100 100 ML @ 200 mls/hr IV.SIG Q8H RENU Rx#:[id number] KCl 20 mEq Premix Inj 20 meq In 100 / 100 100 ml @ 50 mls/hr IV.SIG ONCE ONE Rx#:[id number] NS Inj 1,000 ML @ Wide Open IV. 1800 / 1800 SIG .Q0M RENU Rx#:[id number] Vancomycin Inj 750 MG In NS Inj 257.5 / 257.5 250 ML @ 257.5 mls/hr IV.SIG Q24H RENU Rx#:[id number] Ancef Inj 2,000 MG In NS Inj 80 100 / 100 ML @ 200 mls/hr IV.SIG Q8H RENU Rx#:[id number] Other: # Incontinent Voids 2 <Andres Martinez - 05/04/18 14:28> Vital Signs 05/03/18 11:00 05/03/18 12:40 05/03/18 13:06 Temperature Pulse Rate 95 H 99 H Respiratory Rate 20 26 H Blood Pressure 177/107 H Pulse Oximetry 99 05/03/18 14:39 05/03/18 15:05 05/03/18 15:06 Temperature Pulse Rate 115 H 102 H Respiratory Rate 26 H 16 Blood Pressure 210/131 H 188/92 H Pulse Oximetry 98 98 05/03/18 18:30 05/03/18 19:00 05/03/18 19:45 Temperature Pulse Rate 114 H 109 H Respiratory Rate 22 24 24 Blood Pressure 191/98 H 193/87 H Pulse Oximetry 99 05/03/18 19:49 05/03/18 20:00 05/03/18 20:02 Temperature Pulse Rate 119 H 112 H 117 H Respiratory Rate 36 H 53 H 43 H Blood Pressure 143/105 H Pulse Oximetry 96 99 98 05/03/18 20:04 05/03/18 21:00 05/03/18 21:09 Temperature Pulse Rate 119 H 122 H 118 H Respiratory Rate 39 H 41 H 44 H Blood Pressure 187/108 H 208/113 H 193/103 H Pulse Oximetry 98 97 99 05/03/18 22:00 05/03/18 23:00 05/04/18 00:00 Temperature Pulse Rate 109 H 98 H 109 H Respiratory Rate 46 H 28 H 36 H Blood Pressure 192/91 H 175/99 H 164/113 H Pulse Oximetry 100 99 98 05/04/18 00:18 05/04/18 01:00 05/04/18 01:45 Temperature Pulse Rate 99 H 87 101 H Respiratory Rate 31 H 23 35 H Blood Pressure 168/102 H 204/98 H 178/95 H Pulse Oximetry 98 99 100 05/04/18 02:00 05/04/18 02:15 05/04/18 02:16 Temperature Pulse Rate 102 H 102 H 102 H Respiratory Rate 34 H 37 H 28 H Blood Pressure 180/105 H 183/112 H 179/110 H Pulse Oximetry 100 100 100 05/04/18 02:30 05/04/18 02:45 05/04/18 03:00 Temperature Pulse Rate 96 H 97 H 97 H Respiratory Rate 24 25 H 29 H Blood Pressure 169/97 H 171/96 H 157/90 H Pulse Oximetry 99 99 99 05/04/18 03:15 05/04/18 03:32 05/04/18 04:00 Temperature Pulse Rate 101 H 103 H 96 H Respiratory Rate 33 H 32 H 33 H Blood Pressure 189/102 H 179/100 H 186/103 H Pulse Oximetry 100 99 99 05/04/18 05:00 05/04/18 08:00 05/04/18 08:49 Temperature 98.6 F Pulse Rate 104 H 100 H Respiratory Rate 37 H 30 H Blood Pressure 175/110 H 163/98 H Pulse Oximetry 99 99 100 Intake & Output 05/03/18 05/04/18 05/04/18 18:59 06:59 18:59 Intake Total 1900 / 1900 1457.5 / 1457.5 1000 / 1000 Balance 1900 / 1900 1457.5 / 1457.5 1000 / 1000 Weight 45.359 kg 39.2 kg Intake: IV 1900 / 1900 1457.5 / 1457.5 1000 / 1000 NS + KCl 40 mEq Inj 1,000 ML @ 1000 / 1000 1000 / 1000 100 mls/hr IV.CONT .Q10H RENU Rx #:[id number] Maxipime Inj 1,000 MG In NS Inj 100 / 100 100 ML @ 200 mls/hr IV.SIG ONCE ONE Rx#:[id number] Maxipime Inj 2,000 MG In NS Inj 200 / 200 100 ML @ 200 mls/hr IV.SIG Q8H RENU Rx#:[id number] NS Inj 1,000 ML @ Wide Open IV. 1800 / 1800 SIG .Q0M RENU Rx#:[id number] Vancomycin Inj 750 MG In NS Inj 257.5 / 257.5 250 ML @ 257.5 mls/hr IV.SIG Q24H RENU Rx#:[id number] Other: # Incontinent Voids 2 <Heather Gonzalez - 05/04/18 10:50> Narrative: Physical examination GENERAL: Cachectic appearing female, lying in bed, very sedated SKIN: Warm and dry. HEAD: Normocephalic. EYES: No scleral icterus. No injection or drainage. NECK: Supple, trachea midline. No JVD or lymphadenopathy. CARDIOVASCULAR: Regular rate and rhythm without murmurs, gallops, or rubs. RESPIRATORY: Breath sounds equal bilaterally. No accessory muscle use. GASTROINTESTINAL: Abdomen soft, non-tender, nondistended. MUSCULOSKELETAL: No cyanosis, or edema. BACK: Nontender without obvious deformity. <Heather Gonzalez - 05/04/18 13:48> Assessment and Plan - Assessment (1) Bacteremia due to methicillin susceptible Staphylococcus aureus (MSSA) Code(s): R78.81 - Bacteremia Status: Acute (2) Polysubstance abuse Code(s): F19.10 - Other psychoactive substance abuse, uncomplicated Status: Acute (3) Suicidal ideation Code(s): R45.851 - Suicidal ideations Status: Acute (4) DVT prophylaxis Status: Acute (5) Nutrition, metabolism, and development symptoms Code(s): R63.8 - Other symptoms and signs concerning food and fluid intake Status: Acute <Andres Martinez - 05/04/18 14:28> (1) Bacteremia due to methicillin susceptible Staphylococcus aureus (MSSA) Code(s): R78.81 - Bacteremia Status: Acute Plan: -On presentation, patient had elevated white count of 15.8, vital signs pulse at 104. History of endocarditis. Lactic Acid: 5.3 -Gram-positive cocci growing in all 4 vials on preliminary report -Infectious disease on board * Continue vancomycin 500 mg IV every 12 until MRSA is ruled out by culture * Add cefazolin 2000 mg every 8 hours -Continue IV fluids with potassium -2D limited echo pending -Notably, the patient has been bacteremic in the past but has not been compliant with treatment. She left [facility] from her last admission (2) Polysubstance abuse Code(s): F19.10 - Other psychoactive substance abuse, uncomplicated Status: Acute Plan: Patient with history of polysubstance abuse. Currently withdrawing. -On [facility] protocol -Straight cath for toxicology study * Patient is currently incontinent of urine -Patient currently hypertensive but not tolerating p.o. intake due to sedation and nausea * 0.1 mg clonidine patch q. 7 days * Continue hydralazine 10 mg IV every 6 hours scheduled * Vasotec 1.25 mg IV every 6 hours as needed SBP greater than or equal to 180, DBP greater than or equal to 100 Haldol for agitation (3) Suicidal ideation Code(s): R45.851 - Suicidal ideations Status: Acute Plan: -Patient currently Zu[place]iga acted -Psychiatry consult pending (4) DVT prophylaxis Status: Acute Plan: Lovenox 40 milligrams subcu (5) Nutrition, metabolism, and development symptoms Code(s): R63.8 - Other symptoms and signs concerning food and fluid intake Status: Acute Plan: Fluids:normal saline plus KCl 40 M EQ 100 ml/hr Electrolytes: Monitor and replace as needed Nutrition: Diabetic diet (patient reports being diabetic, no A1c on record) <Heather Gonzalez U - 05/04/18 13:51> - Assessment and Plan 42-year-old female with a past medical history of polysubstance abuse, endocarditis presents [facility] [place] [facility] for polysubstance withdrawal. Patient was found to be septic on admission and is bacteremic with gram-positive cocci on blood culture. Patient currently on Vanc and Rocephin. ID consulted for endocarditis workup. 2D echo pending. [facility] protocol. <Heather Gonzalez - 05/04/18 14:00> Discussed Condition With: Seen and examined with Dr. Dunlap. Discussed with Dr. Martinez <Heather Gonzalez - 05/04/18 14:00> Discharge Planning: Pending clinical improvement and infectious disease recommendations. She will need a long course of antibiotics <Heather Gonzalez - 05/04/18 14:00> - Attending Attestation Pt. examined and case discussed with resident physicians during medical rounds this morning I have examined the patient and agree with the assessment/plan as dictated above. I was involved in all medical decision making for this patient Andres Martinez MD <Andres Martinez - 05/04/18 14:28>
[2018-05-04] MEDS: ceFAZolin Inj 2,000 MG in Sodium Chlor 0.9% Inj 80 ML IV.SIG SCH ×2 (12:32→19:47)
[2018-05-04] MEDS: Enoxaparin Inj 40 MG/0.4 ML Syringe SQ SCH (13:08)
[2018-05-04] MEDS ORDERED: hydrALAZINE HCl Inj 20 MG/ML Vial IV.PUSH SCH (14:00)
--- NOTE | 2018-05-04 14:44 | P.CONPSY ---
Provisional Diagnosis Admission Date: May 03, 2018 11:46 History of Present Illness Service: psychiatry Consult date: 05/04/18 Reason for Consult: SI Primary Care Provider: UNKNOWN Chief Complaint: SI History of Present Illness: This is a request for a psychiatric consult. Documentation was reviewed, case was discussed with nursing and patient was evaluated. Patient is a 42-year-old female with with active and severe polysubstance abuse admitted to the hospital after starting to withdraw from her drugs. Patient said that if she could not get meth she would inject herself with antifreeze. Her record she uses methamphetamine, heroin, cocaine and Dilaudid. Patient continues to be withdrawing from various substances and has received 3 doses of 2 mg of Ativan up to now. For this interview patient is lethargic and oriented x1. She nods her head when I mention her name but does not converse or answer any other questions. She is awake and alert to her surroundings. Her record there is a history of depression. Past psych: History of depression per record, no other information is known Past medical: Endocarditis Past Famhx: No information is known Past Social: Drug use as noted above. No other information is known Review of Systems All other systems reviewed negative except as stated in HPI PMFSH - History History Provided By: Patient - Medical History Medical History: Medical History (Last Reviewed 05/04/18 @ 14:41 by Earnest Harry DO) CVA (cerebral vascular accident) Endocarditis Hepatitis C IV drug abuse Laceration of kidney - Surgical History Surgical History: Surgical History (Last Reviewed 05/04/18 @ 09:46 by Kassandra Javier MD) Hx of hand surgery - Family History Family History: Family History (Last Reviewed 05/04/18 @ 09:46 by Kassandra Javier MD) Other Family history unknown - Tobacco History Second Hand Smoke Exposure: Yes Tobacco Use In Past 30 Days: Yes Smoking Status: Current every day smoker Tobacco Type: Cigarettes - Alcohol History How Often Do You Have a Drink Containing Alcohol: Never - Substance Use History Substance History: Active Abuse - Substance Use Type Crack/Cocaine Status: Active Route Used: Inhalation Reason for Use: Calm Down - Immunization History Tetanus Immunization: Unsure Medications and Allergies Active Medications: Active Medications Acetaminophen (Tylenol) 650 mg PO Q4H PRN PRN Reason: Temp > 100.4 Al Hydroxide/Mg Hydroxide (Milk Of Magnesia Liq) 30 ml PO Q12H PRN PRN Reason: Mild Constipation Bisacodyl (Dulcolax Supp) 10 mg RECTAL DAILY PRN PRN Reason: SEVERE CONSITIPATION Clonidine HCl (Catapress-Tts 0.1 Mg Patch.7d) 1 patch T-DERMAL Q7D RENU Last Admin: 05/03/18 20:00 Dose: 1 patch Enalaprilat (Vasotec Inj) 1.25 mg IV.PUSH Q6H PRN PRN Reason: SBP>=180 or DBP>=100 Last Admin: 05/04/18 09:48 Dose: 1.25 mg Enoxaparin Sodium (Lovenox Inj) 40 mg SQ Q24H RENU Last Admin: 05/04/18 13:08 Dose: 40 mg Flumazenil (Romazecon Inj) 0.2 mg IV.PUSH Q1M PRN PRN Reason: OVERSEDATION Haloperidol Lactate (Haldol Inj) 1 mg IV.PUSH Q15M PRN PRN Reason: for severe agitation Last Admin: 05/03/18 14:57 Dose: 1 mg Hydralazine HCl (Apresoline Inj) 10 mg IV.PUSH Q6H RENU Sodium Chloride (Ns Inj) 1,000 mls @ 0 mls/hr IV.SIG .Q0M RENU Last Infusion: 05/03/18 11:55 Dose: Infused Sodium Chloride (Ns Inj) 800 mls @ 0 mls/hr IV.SIG .Q0M RENU Last Infusion: 05/03/18 11:54 Dose: Infused Potassium Chloride/Sodium Chloride (Ns + Kcl 40 Meq Inj) 1,000 mls @ 100 mls/ hr IV.CONT .Q10H RENU Last Admin: 05/04/18 10:36 Dose: 100 mls/hr Cefepime HCl 2,000 mg/ Sodium (Chloride) 100 mls @ 200 mls/hr IV.SIG Q8H RENU Last Infusion: 05/04/18 11:39 Dose: Infused Vancomycin HCl 500 mg/ Sodium (Chloride) 100 mls @ 200 mls/hr IV.SIG Q12H RENU Cefazolin Sodium 2,000 mg/ (Sodium Chloride) 100 mls @ 200 mls/hr IV.SIG Q8H RENU Last Infusion: 05/04/18 13:11 Dose: Infused Lactulose (Lactulose Liq) 30 ml PO DAILY PRN PRN Reason: SEVERE CONSITIPATION Lorazepam (Ativan) 1 mg PO Q4H PRN PRN Reason: for CIWA 8-10 Lorazepam (Ativan) 2 mg PO Q2H PRN PRN Reason: for CIWA 11-14 Lorazepam (Ativan Inj) 2 mg IV.PUSH Q2H PRN PRN Reason: for CIWA 11-14 Last Admin: 05/04/18 10:55 Dose: 2 mg Lorazepam (Ativan Inj) 2 mg IV.PUSH Q1H PRN PRN Reason: for CIWA 15-20 Last Admin: 05/04/18 12:51 Dose: 2 mg Lorazepam (Ativan Inj) 2 mg IV.PUSH Q15M PRN PRN Reason: for CIWA > 20 Last Admin: 05/04/18 13:08 Dose: 2 mg Lorazepam (Ativan Inj) 1 mg IV.PUSH Q4H PRN PRN Reason: for CIWA 8-10 Miscellaneous Information ([facility] [place] Info) 0 each OTHER ONCE ONE Stop: 05/05/18 14:46 Ondansetron HCl (Zofran Inj) 4 mg IV.PUSH Q6H PRN PRN Reason: NAUSEA OR VOMITING Patch Removal (Remove Old Patch) 1 each T-DERMAL Q7D [facility] Pharmacy Profile Note (Vancomycin Consult Pharmacy) 1 each OTHER UNSCH PRN PRN Reason: Pharmacy to dose Senna/Docusate Sodium (Silvia-Colace) 1 tab PO BID [facility] Last Admin: 05/04/18 09:39 Dose: Not Given Sennosides (Senokot) 17.2 mg PO Q12H PRN PRN Reason: Moderate Constipation Sodium Chloride (Ns Flush) 2 ml IV.FLUSH BID [facility] Last Admin: 05/04/18 09:39 Dose: 2 ml Sodium Chloride (Ns Flush) 2 ml IV.FLUSH PRN PRN PRN Reason: FLUSH AFTER USING IV ACCESS Allergies Allergy/AdvReac Type Severity Reaction Status Date / Time No Known Allergies Allergy Verified 05/03/18 09:02 Home Medications Medication Instructions Recorded Confirmed Type No Known Home Medications 12/18/17 05/03/18 History Exam Vital signs: Vital Signs 05/03/18 15:05 05/03/18 15:06 05/03/18 18:30 Temperature Pulse Rate 102 H Respiratory Rate 16 22 Blood Pressure 188/92 H Pulse Oximetry 98 98 05/03/18 19:00 05/03/18 19:45 05/03/18 19:49 Temperature Pulse Rate 114 H 109 H 119 H Respiratory Rate 24 24 36 H Blood Pressure 191/98 H 193/87 H Pulse Oximetry 99 96 05/03/18 20:00 05/03/18 20:02 05/03/18 20:04 Temperature Pulse Rate 112 H 117 H 119 H Respiratory Rate 53 H 43 H 39 H Blood Pressure 143/105 H 187/108 H Pulse Oximetry 99 98 98 05/03/18 21:00 05/03/18 21:09 05/03/18 22:00 Temperature Pulse Rate 122 H 118 H 109 H Respiratory Rate 41 H 44 H 46 H Blood Pressure 208/113 H 193/103 H 192/91 H Pulse Oximetry 97 99 100 05/03/18 23:00 05/04/18 00:00 05/04/18 00:18 Temperature Pulse Rate 98 H 109 H 99 H Respiratory Rate 28 H 36 H 31 H Blood Pressure 175/99 H 164/113 H 168/102 H Pulse Oximetry 99 98 98 05/04/18 01:00 05/04/18 01:45 05/04/18 02:00 Temperature Pulse Rate 87 101 H 102 H Respiratory Rate 23 35 H 34 H Blood Pressure 204/98 H 178/95 H 180/105 H Pulse Oximetry 99 100 100 05/04/18 02:15 05/04/18 02:16 05/04/18 02:30 Temperature Pulse Rate 102 H 102 H 96 H Respiratory Rate 37 H 28 H 24 Blood Pressure 183/112 H 179/110 H 169/97 H Pulse Oximetry 100 100 99 05/04/18 02:45 05/04/18 03:00 05/04/18 03:15 Temperature Pulse Rate 97 H 97 H 101 H Respiratory Rate 25 H 29 H 33 H Blood Pressure 171/96 H 157/90 H 189/102 H Pulse Oximetry 99 99 100 05/04/18 03:32 05/04/18 04:00 05/04/18 05:00 Temperature Pulse Rate 103 H 96 H 104 H Respiratory Rate 32 H 33 H 37 H Blood Pressure 179/100 H 186/103 H 175/110 H Pulse Oximetry 99 99 99 05/04/18 08:00 12/16/18 08:49 Temperature 98.6 F Pulse Rate 100 H Respiratory Rate 30 H Blood Pressure 163/98 H Pulse Oximetry 99 100 Intake & Output 05/03/18 05/04/18 05/04/18 18:59 06:59 18:59 Intake Total 1900 / 1900 1457.5 / 1457.5 1300 / 1300 Balance 1900 / 1900 1457.5 / 1457.5 1300 / 1300 Weight 45.359 kg 39.2 kg Intake: IV 1900 / 1900 1457.5 / 1457.5 1300 / 1300 NS + KCl 40 mEq Inj 1,000 ML @ 1000 / 1000 1000 / 1000 100 mls/hr IV.CONT .Q10H RENU Rx #:[id number] Maxipime Inj 1,000 MG In NS Inj 100 / 100 100 ML @ 200 mls/hr IV.SIG ONCE ONE Rx#:[id number] Maxipime Inj 2,000 MG In NS Inj 200 / 200 100 / 100 100 ML @ 200 mls/hr IV.SIG Q8H RENU Rx#:[id number] KCl 20 mEq Premix Inj 20 meq In 100 / 100 100 ml @ 50 mls/hr IV.SIG ONCE ONE Rx#:[id number] NS Inj 1,000 ML @ Wide Open IV. 1800 / 1800 SIG .Q0M RENU Rx#:[id number] Vancomycin Inj 750 MG In NS Inj 257.5 / 257.5 250 ML @ 257.5 mls/hr IV.SIG Q24H RENU Rx#:[id number] Ancef Inj 2,000 MG In NS Inj 80 100 / 100 ML @ 200 mls/hr IV.SIG Q8H RENU Rx#:[id number] Other: # Incontinent Voids 2 Mental Status Examination Appearance: Dirty, Disheveled Consciousness: Lethargic Orientation: Person Motor Activity: Abnormal gait Speech: Other (n/a) Language: Other (n/a) Fund of Knowledge: Poor Attention and Concentration: Inadequate (n/a) Memory: Impaired (n/a) Mood: Other (n/a) Affect: Other (n/a) Thought Process & Associations: Other (n/a) Thought Content: Other (n/a) Hallucination Type: None (n/a) Delusion Type: None (n/a) Suicidal Ideation: No (n/a) Suicidal Plan: No (n/a) Suicidal Intention: No (n/a) Homicidal Ideation: No (n/a) Homicidal Plan: No (n/a) Homicidal Intention: No (n/a) Insight: Poor Judgment: Poor (n/a) Assessment and Plan - Assessment (1) Adjustment disorder with withdrawal Code(s): F43.29 - Adjustment disorder with other symptoms Status: Acute - Plan Plan: Patient is not appropriate for the medical/psychiatric unit at this time given her mental status and the high doses of Ativan she is receiving. I recommend reconsulting us once she is medically clear and on lower doses of Ativan to determine if she is a candidate for the psychiatric unit Justification for Continued Inpatient Stay: Patient would decompensate in a less restrictive setting
[2018-05-04] MEDS ORDERED: Vancomycin Inj 500 MG in Sodium Chlor 0.9% Inj 100 ML IV.SIG SCH (15:00)
[2018-05-04 15:55] LABS: Bilirubin,Urine Negative (Negative); Clarity,Urine Hazy (Clear); Color,Urine Yellow (Yellw/Straw); Glucose,Urine (UA) 50 mg/dL (Negative); Leukocyte Esterase,Urine Negative (Negative); Mucus,Urine Few /lpf (Occasional); Nitrite,Urine Negative (Negative); Specific Gravity,Urine 1.016 (1.002-1.035); Squamous Epithelial Cell,Urine <1 /hpf (0-5)
[2018-05-04] MEDS: hydrALAZINE HCl Inj 20 MG/ML Vial IV.PUSH SCH (15:58)
[2018-05-04 22:57] LABS: Amphetamine Urine With Conf Neg (Neg); Benzodiazepine Urine With Conf Neg (Neg); Cocaine Urine With Conf Neg (Neg); Opiates Urine With Conf Neg (Neg)
[2018-05-04 22:58] LABS: Cannabinoid Urine With Conf Neg (Neg)
[2018-05-05] MEDS: hydrALAZINE HCl Inj 20 MG/ML Vial IV.PUSH SCH ×4 (00:11→23:27)
[2018-05-05] MEDS: ceFAZolin Inj 2,000 MG in Sodium Chlor 0.9% Inj 80 ML IV.SIG SCH (03:06)
[2018-05-05 08:28] LABS: Baso % (Auto) 0.4 % (0.0-2.0); Eos % (Auto) 0.2 % (0.0-4.0); Hematocrit 30.1 % (35.0-46.0); Hemoglobin 9.2 gm/dL (11.6-15.3); Lymph # (Auto) 0.9 th/mm3 (1.0-4.8); Lymph % (Auto) 9.1 % (9.0-44.0); Mean Corpuscular Hemoglobin 19.7 pg (27.0-34.0); Mean Corpuscular Volume 64.6 fL (80.0-100.0); Mono # (Auto) 0.5 th/mm3 (0.0-0.9); Mono % (Auto) 4.9 % (0.0-8.0); Neut # (Auto) 8.7 th/mm3 (1.8-7.7); Neut % (Auto) 85.4 % (16.0-70.0); Platelet Count 478 th/mm3 (150-450); Red Blood Count 4.65 mil/mm3 (4.00-5.30); White Blood Count 10.2 th/mm3 (4.0-11.0)
[2018-05-05 08:32] LABS: Mean Corpuscular HGB Conc 30.5 % (32.0-36.0)
[2018-05-05 08:59] LABS: Albumin 1.6 g/dL (3.4-5.0); Anion Gap 10 meq/L (5-15); Aspartate Aminotransferase 44 U/L (15-37); Blood Urea Nitrogen 15 mg/dL (7-18); Carbon Dioxide 22.3 meq/L (21.0-32.0); Chloride 105 meq/L (98-107); Glomerular Filtration Rate Greater Than 89 mL/min (>89); Glucose,Random 72 mg/dL (74-106); Potassium 3.4 meq/L (3.5-5.1); Sodium 137 meq/L (136-145)
[2018-05-05 09:00] LABS: Alanine Aminotransferase 22 U/L (10-53)
[2018-05-05 09:02] LABS: Alkaline Phosphatase 214 U/L (45-117); Total Protein 7.9 g/dL (6.4-8.2)
--- NOTE | 2018-05-05 09:47 | P.PNID ---
Subjective Remarks: Patient is a 42-year-old female, brought into the hospital under [place] act initiated by PD. She has history of polysubstance abuse and apparently was running out of medications to use and afraid that she is going to go into withdrawals. 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 At that time she had evidence of multiple embolization to different organs including the brain, as well as evidence of septic arthritis. She stabilized, and was discharged to get IV antibiotics in the outpatient infusion clinic but apparently has not been compliant and was using her PICC line for her drugs. She was readmitted to the hospital and plan at that time was for her to complete her treatment in house. Patient however signed out AMA. Since then she has had multiple ED visits with different complaints. There was an ED visit on February 28 and at that time she had fever and chills as her complaints. She had 2 blood cultures done at that time and they grew MSSA. She really has not had any treatment for that MSSA bacteremia. She has had other admissions but has signed out AMA. On this admission patient is afebrile. Her white count is elevated. 2 blood cultures done yesterday are now reported as growing gram-positive cocci. She has been known to use IV Dilaudid, heroin, cocaine, and meth. She is not hypoxic. There is been no report of any fever or chills at home. She has not been complaining of any respiratory GI or any urinary complaints. Infectious disease consultation has been requested to assist with evaluation and treatment of this patient with history of endocarditis, and polysubstance abuse. Notes reviewed Temps ok Lethargic Having TTE done at bedside noted - Staph aureus prelim Repeat BC negative so far She had MSSA from last Feb 2018 Previous GAS MV IE last September-October,, not clear if she completed her Rx due to multiple AMA Psychiatry notes reviewed Antibiotics: Vancomycin Ancef Cefepime Lines: PIV Past Medical History: CVA (cerebral vascular accident) Endocarditis Hepatitis C IV drug abuse Laceration of kidney Hx of hand surgery Allergies/Adverse Reactions: Allergies No Known Allergies Allergy (Verified 05/03/18 09:02) Objective Vital Signs 05/04/18 10:00 05/04/18 10:50 05/04/18 11:00 Temperature Pulse Rate 101 H 115 H 100 H Respiratory Rate 29 H 34 H 30 H Blood Pressure 169/101 H 161/98 H 163/98 H Pulse Oximetry 99 98 97 05/04/18 12:00 05/04/18 13:00 05/04/18 14:00 Temperature 98.5 F Pulse Rate 104 H 106 H 91 H Respiratory Rate 30 H 34 H 23 Blood Pressure 150/92 H 160/86 H Pulse Oximetry 99 92 L 100 05/04/18 14:01 05/04/18 15:00 05/04/18 15:47 Temperature Pulse Rate 105 H 108 H 109 H Respiratory Rate 33 H 35 H 36 H Blood Pressure 170/101 H 171/89 H 158/85 H Pulse Oximetry 92 L 99 100 05/04/18 16:00 05/04/18 17:00 05/04/18 18:00 Temperature 98.3 F Pulse Rate 105 H 112 H 114 H Respiratory Rate 30 H 33 H 31 H Blood Pressure 152/88 H 162/98 H 163/99 H Pulse Oximetry 100 100 100 05/04/18 19:00 05/04/18 19:29 05/04/18 20:00 Temperature 99.5 F Pulse Rate 111 H 113 H 107 H Respiratory Rate 34 H 38 H 32 H Blood Pressure 182/90 H 187/103 H 160/94 H Pulse Oximetry 100 100 100 05/04/18 21:00 05/04/18 22:00 05/04/18 23:00 Temperature Pulse Rate 109 H 108 H 105 H Respiratory Rate 29 H 29 H 30 H Blood Pressure 170/94 H 148/92 H 158/99 H Pulse Oximetry 100 99 100 05/05/18 00:00 05/05/18 00:20 05/05/18 01:00 Temperature Pulse Rate 99 H 119 H Respiratory Rate 23 43 H Blood Pressure 165/99 H Pulse Oximetry 99 100 98 05/05/18 01:03 05/05/18 02:00 05/05/18 03:00 Temperature Pulse Rate 113 H 108 H 109 H Respiratory Rate 32 H 25 H 27 H Blood Pressure 147/86 H 151/89 H 155/95 H Pulse Oximetry 100 100 100 05/05/18 04:00 Temperature Pulse Rate 110 H Respiratory Rate 34 H Blood Pressure 157/95 H Pulse Oximetry 100 Intake & Output 05/04/18 05/05/18 05/05/18 18:59 06:59 18:59 Intake Total 1500 / 1500 2400 / 2400 Balance 1500 / 1500 2400 / 2400 Weight 39.6 kg Intake: IV 1500 / 1500 2400 / 2400 NS + KCl 40 mEq Inj 1,000 ML @ 1000 / 1000 2000 / 2000 100 mls/hr IV.CONT .Q10H RENU Rx #:[id number] Maxipime Inj 2,000 MG In NS Inj 200 / 200 100 / 100 100 ML @ 200 mls/hr IV.SIG Q8H RENU Rx#:[id number] KCl 20 mEq Premix Inj 20 meq In 100 / 100 100 ml @ 50 mls/hr IV.SIG ONCE ONE Rx#:[id number] Vancomycin Inj 500 MG In NS Inj 100 / 100 100 ML @ 200 mls/hr IV.SIG Q12H RENU Rx#:[id number] Vancomycin Inj 500 MG In NS Inj 100 / 100 100 ML @ 200 mls/hr IV.SIG Q12H RENU Rx#:[id number] Ancef Inj 2,000 MG In NS Inj 80 100 / 100 200 / 200 ML @ 200 mls/hr IV.SIG Q8H RENU Rx#:[id number] Oral 0 / 0 0 / 0 Other: # Incontinent Voids 3 2 # Bowel Movements 0 0 05/05/18 07:57 Blood - Peripheral Aerobic Blood Culture - Pending 05/05/18 07:57 Blood - Peripheral Anaerobic Blood Culture - Pending 05/04/18 12:19 Blood - Peripheral Aerobic Blood Culture - Pending 05/04/18 12:19 Blood - Peripheral Anaerobic Blood Culture - Pending 05/04/18 12:24 Blood - Peripheral Aerobic Blood Culture - Pending 05/04/18 12:24 Blood - Peripheral Anaerobic Blood Culture - Pending 05/03/18 10:05 Blood - Peripheral Aerobic Blood Culture - Preliminary Staphylococcus aureus 05/03/18 10:05 Blood - Peripheral Anaerobic Blood Culture - Preliminary gram positive cocci 05/03/18 10:05 Blood - Peripheral Aerobic Blood Culture - Preliminary gram positive cocci 05/03/18 10:05 Blood - Peripheral Anaerobic Blood Culture - Preliminary gram positive cocci Lab - Hematology Results 05/03/18 05/04/18 05/05/18 10:05 03:08 07:57 WBC 15.8 H 13.8 H 10.2 RBC 4.68 4.30 4.65 Hgb 10.3 L 8.5 L 9.2 L Hct 29.6 L 27.8 L 30.1 L MCV 63.2 L 64.7 L 64.6 L MCH 22.0 L 19.8 L 19.7 L MCHC 34.7 30.7 L 30.5 L RDW 17.1 17.3 H 17.0 Plt Count 548 H 397 478 H MPV 7.4 7.2 7.0 Neut % (Auto) 89.4 H 87.6 H 85.4 H Lymph % (Auto) 4.6 L 5.9 L 9.1 [place] % (Auto) 5.9 6.4 4.9 Eos % (Auto) 0.0 0.0 0.2 Baso % (Auto) 0.1 0.1 0.4 Neut # (Auto) 14.1 H 12.1 H 8.7 H Lymph # (Auto) 0.7 L 0.8 L 0.9 L [place] # (Auto) 0.9 0.9 0.5 Eos # (Auto) 0.0 0.0 0.0 Baso # (Auto) 0.0 0.0 0.0 WBC Differential . . . Differential Comment Auto diff final Auto diff final Auto diff final Lab - Chemistry Results 05/03/18 05/03/18 05/03/18 10:05 10:05 14:53 Sodium 129 L Potassium 2.6 L* Chloride 84 L Carbon Dioxide 33.7 H Anion Gap 11 BUN 28 H Creatinine 1.03 H Estimated GFR 59 L POC Glucose Random Glucose 146 H Lactic Acid 5.3 H* 1.3 Calcium 10.5 H Magnesium 2.1 Total Bilirubin 0.8 AST 26 ALT 26 Alkaline Phosphatase 152 H Total Creatine Kinase 23 L Troponin I Less than 0.02 L Total Protein 10.0 H Albumin 2.3 L TSH 0.656 05/03/18 05/04/18 05/04/18 22:09 03:07 03:08 Sodium 136 Potassium 3.0 L Chloride 103 D Carbon Dioxide 25.9 Anion Gap 7 BUN 17 Creatinine 0.57 Estimated GFR Greater than 89 POC Glucose 121 H 117 H Random Glucose 101 Lactic Acid Calcium 8.3 L D Magnesium Total Bilirubin 0.5 AST 28 ALT 17 Alkaline Phosphatase 121 H Total Creatine Kinase Troponin I Total Protein 7.2 D Albumin 1.6 L D TSH 05/04/18 05/04/1805/04/18 16:44 19:31 20:46 Sodium Potassium Chloride Carbon Dioxide Anion Gap BUN Creatinine Estimated GFR POC Glucose 95 74 81 Random Glucose Lactic Acid Calcium Magnesium Total Bilirubin AST ALT Alkaline Phosphatase Total Creatine Kinase Troponin I Total Protein Albumin TSH 05/05/18 05/05/18 02:36 07:57 Sodium 137 Potassium 3.4 L Chloride 105 Carbon Dioxide 22.3 Anion Gap 10 BUN 15 Creatinine 0.55 Estimated GFR Greater than 89 POC Glucose 91 Random Glucose 72 L Lactic Acid Calcium 9.0 Magnesium Total Bilirubin 0.6 AST 44 H ALT 22 Alkaline Phosphatase 214 H Total Creatine Kinase Troponin I Total Protein 7.9 D Albumin 1.6 L TSH Imaging: ITS Impressions Chest X-Ray 05/03/18 09:05 CONCLUSION: Negative examination. Physical Exam: GENERAL: Patient is a cachectic, well-developed female, lethargic, not in respiratory distress. SKIN: Cool and dry. No generalized rash. Poor turgor. Has track recinos in UE. HEAD: Atraumatic. Normocephalic. No temporal wasting, or tenderness. EYES: Venturia conjunctiva. No petechia or hemorrhage. Pupils equal, dilated, round and reactive to light. No scleral icterus. No injection or drainage. EARS, NOSE AND THROAT: Nose without bleeding or purulent nasal discharge. Unable to examine oropharynx NECK: Trachea midline. Supple and not tender, no meningeal signs CARDIOVASCULAR: Regular rate and rhythm. No murmurs, rubs or gallops heard RESPIRATORY: Clear to auscultation. Breath sounds equal bilaterally. No rales , wheezing or rhonchi ABDOMEN: Soft, flat, non-tender, nondistended. Bowel sounds present and normoactive. Has LN both groin EXTREMITIES: No clubbing, cyanosis, or edema. No joint effusion. No calf tenderness. No embolic lesions NEUROLOGICAL: Just got medicated. No Babinski or ankle clonus PSYCHIATRIC: Unable to assess LINE: No evidence of infection Assessment and Plan - Plan Impression Hx Strep MV IE, not sure if she completed Rx last summer Now with MSSA bacteremia and likely new IE due to continued IVDU Polysubstance abuse - heroin, cocaine, dilaudid, meth Cachexia Recommendation Continue IV Ancef IV vanco to cover MRSA while C/S pending Stop Cefepime Echo limited to look at valves Repeat BC to document clearing Follow temps Follow C/S Monitor progress Very difficult Rx plan on this patient due to her poor compliance and frequent AMA D/W RN
--- NOTE | 2018-05-05 10:58 | P.PNFP ---
Subjective Interval history: Patient was seen at bedside this morning but due to her current mental status was unable to communicate the team. <Sanket Vigil Lula - 05/05/18 11:10> Results - Labs Result diagrams: 05/05/18 07:57 05/05/18 07:57 <Andres Martinez - 05/05/18 17:13> Abnormal lab results 05/05/18 05/05/18 05/05/18 Range/Units 07:57 07:57 12:43 Hgb 9.2 L (11.6-15.3) gm/dL Hct 30.1 L (35.0-46.0) % MCV 64.6 L (80.0-100.0) fL MCH 19.7 L (27.0-34.0) pg MCHC 30.5 L (32.0-36.0) % Plt Count 478 H (150-450) th/mm3 Neut % (Auto) 85.4 H (16.0-70.0) % Neut # (Auto) 8.7 H (1.8-7.7) th/mm3 Lymph # (Auto) 0.9 L (1.0-4.8) th/mm3 Potassium 3.4 L (3.5-5.1) meq/L POC Glucose 120 H (68-110) mg/dl Random Glucose 72 L (74-106) mg/dL AST 44 H (15-37) U/L Alkaline Phosphatase 214 H (45-117) U/L Albumin 1.6 L (3.4-5.0) g/dL Short CBC 05/05/18 Range/Units 07:57 WBC 10.2 (4.0-11.0) th/mm3 Hgb 9.2 L (11.6-15.3) gm/dL Hct 30.1 L (35.0-46.0) % Plt Count 478 H (150-450) th/mm3 BMP 05/05/18 07:57 Sodium 137 Potassium 3.4 L Chloride 105 Carbon Dioxide 22.3 BUN 15 Creatinine 0.55 Calcium 9.0 Liver Function 05/05/18 Range/Units 07:57 Total Bilirubin 0.6 (0.2-1.0) mg/dL AST 44 H (15-37) U/L ALT 22 (10-53) U/L Alkaline Phosphatase 214 H (45-117) U/L Albumin 1.6 L (3.4-5.0) g/dL <Andres Martinez - 05/05/18 17:13> Abnormal lab results 05/04/18 05/05/18 05/05/18 Range/Units 15:00 07:57 07:57 Hgb 9.2 L (11.6-15.3) gm/dL Hct 30.1 L (35.0-46.0) % MCV 64.6 L (80.0-100.0) fL MCH 19.7 L (27.0-34.0) pg MCHC 30.5 L (32.0-36.0) % Plt Count 478 H (150-450) th/mm3 Neut % (Auto) 85.4 H (16.0-70.0) % Neut # (Auto) 8.7 H (1.8-7.7) th/mm3 Lymph # (Auto) 0.9 L (1.0-4.8) th/mm3 Potassium 3.4 L (3.5-5.1) meq/L Random Glucose 72 L (74-106) mg/dL AST 44 H (15-37) U/L Alkaline Phosphatase 214 H (45-117) U/L Albumin 1.6 L (3.4-5.0) g/dL Urine Clarity Hazy H (Clear) Urine Mucus Few H (Occasional) /lpf Short CBC 05/05/18 Range/Units 07:57 WBC 10.2 (4.0-11.0) th/mm3 Hgb 9.2 L (11.6-15.3) gm/dL Hct 30.1 L (35.0-46.0) % Plt Count 478 H (150-450) th/mm3 BMP 05/05/18 07:57 Sodium 137 Potassium 3.4 L Chloride 105 Carbon Dioxide 22.3 BUN 15 Creatinine 0.55 Calcium 9.0 Liver Function 05/05/18 Range/Units 07:57 Total Bilirubin 0.6 (0.2-1.0) mg/dL AST 44 H (15-37) U/L ALT 22 (10-53) U/L Alkaline Phosphatase 214 H (45-117) U/L Albumin 1.6 L (3.4-5.0) g/dL Urine 05/04/18 Range/Units 15:00 Urine Color Yellow (Yellw/Straw) Urine Clarity Hazy H (Clear) Urine pH 6.0 (5.0-8.5) Ur Specific [place] 1.016 (1.002-1.035) Urine Protein Negative (Neg-Trace) mg/dL Urine Glucose (UA) 50 (Negative) mg/dL <Sanket Vigil O - 05/05/18 10:58> Physical Exam Vital signs: Vital Signs 05/04/18 18:00 05/04/18 19:00 05/04/18 19:29 Temperature Pulse Rate 114 H 111 H 113 H Respiratory Rate 31 H 34 H 38 H Blood Pressure 163/99 H 182/90 H 187/103 H Pulse Oximetry 100 100 100 05/04/18 20:00 05/04/18 21:00 05/04/18 22:00 Temperature 99.5 F Pulse Rate 107 H 109 H 108 H Respiratory Rate 32 H 29 H 29 H Blood Pressure 160/94 H 170/94 H 148/92 H Pulse Oximetry 100 100 99 05/04/18 23:00 05/05/18 00:00 05/05/18 00:20 Temperature Pulse Rate 105 H 99 H Respiratory Rate 30 H 23 Blood Pressure 158/99 H 165/99 H Pulse Oximetry 100 99 100 05/05/18 01:00 05/05/18 01:03 05/05/18 02:00 Temperature Pulse Rate 119 H 113 H 108 H Respiratory Rate 43 H 32 H 25 H Blood Pressure 147/86 H 151/89 H Pulse Oximetry 98 100 100 05/05/18 03:00 05/05/18 04:00 05/05/18 05:00 Temperature Pulse Rate 109 H 110 H 114 H Respiratory Rate 27 H 34 H 40 H Blood Pressure 155/95 H 157/95 H 149/92 H Pulse Oximetry 100 100 100 05/05/18 06:00 05/05/18 06:01 05/05/18 07:00 Temperature Pulse Rate 101 H 99 H 102 H Respiratory Rate 30 H 29 H 32 H Blood Pressure 163/103 H 165/104 H Pulse Oximetry 100 100 100 05/05/18 07:57 05/05/18 08:00 05/05/18 09:00 Temperature 98.2 F Pulse Rate 119 H 121 H 117 H Respiratory Rate 35 H 32 H 30 H Blood Pressure 150/88 H 144/92 H 144/92 H Pulse Oximetry 100 100 100 05/05/18 10:00 05/05/18 11:00 05/05/18 12:00 Temperature 98.2 F Pulse Rate 122 H 112 H 121 H Respiratory Rate 31 H 32 H 38 H Blood Pressure 142/84 H 144/88 H 152/95 H Pulse Oximetry 100 100 100 05/05/18 13:00 05/05/18 14:00 05/05/18 15:00 Temperature Pulse Rate 109 H 109 H 121 H Respiratory Rate 41 H 30 H 33 H Blood Pressure 152/95 H 161/94 H 166/99 H Pulse Oximetry 100 100 100 05/05/18 16:00 Temperature Pulse Rate 112 H Respiratory Rate 31 H Blood Pressure 175/105 H Pulse Oximetry 100 Intake & Output 05/04/18 05/05/18 05/05/18 18:59 06:59 18:59 Intake Total 1500 / 1500 2400 / 2400 50 / 50 Balance 1500 / 1500 2400 / 2400 50 / 50 Weight 39.6 kg Intake: IV 1500 / 1500 2400 / 2400 50 / 50 NS + KCl 40 mEq Inj 1,000 ML @ 1000 / 1000 2000 / 2000 0 / 0 100 mls/hr IV.CONT .Q10H RENU Rx #:[id number] Maxipime Inj 2,000 MG In NS Inj 200 / 200 100 / 100 100 ML @ 200 mls/hr IV.SIG Q8H RENU Rx#:[id number] KCl 20 mEq Premix Inj 20 meq In 100 / 100 100 ml @ 50 mls/hr IV.SIG ONCE ONE Rx#:[id number] Vancomycin Inj 500 MG In NS Inj 100 / 100 100 ML @ 200 mls/hr IV.SIG Q12H RENU Rx#:[id number] Vancomycin Inj 500 MG In NS Inj 100 / 100 100 ML @ 200 mls/hr IV.SIG Q12H RENU Rx#:[id number] Ancef 2 GM Premix Inj 2 gm In 50 / 50 50 ml @ 100 mls/hr IV.SIG Q8H RENU Rx#:[id number] Ancef Inj 2,000 MG In NS Inj 80 100 / 100 200 / 200 ML @ 200 mls/hr IV.SIG Q8H RENU Rx#:[id number] Oral 0 / 0 0 / 0 Other: # Incontinent Voids 3 2 # Bowel Movements 0 0 <Frannie Martinezy - 05/05/18 17:13> Vital Signs 05/04/18 11:00 05/04/18 12:00 05/04/18 13:00 Temperature 98.5 F Pulse Rate 100 H 104 H 106 H Respiratory Rate 30 H 30 H 34 H Blood Pressure 163/98 H 150/92 H 160/86 H Pulse Oximetry 97 99 92 L 05/04/18 14:00 05/04/18 14:01 05/04/18 15:00 Temperature Pulse Rate 91 H 105 H 108 H Respiratory Rate 23 33 H 35 H Blood Pressure 170/101 H 171/89 H Pulse Oximetry 100 92 L 99 05/04/18 15:47 05/04/18 16:00 05/04/18 17:00 Temperature 98.3 F Pulse Rate 109 H 105 H 112 H Respiratory Rate 36 H 30 H 33 H Blood Pressure 158/85 H 152/88 H 162/98 H Pulse Oximetry 100 100 100 05/04/18 18:00 05/04/18 19:00 05/04/18 19:29 Temperature Pulse Rate 114 H 111 H 113 H Respiratory Rate 31 H 34 H 38 H Blood Pressure 163/99 H 182/90 H 187/103 H Pulse Oximetry 100 100 100 05/04/18 20:00 05/04/18 21:00 05/04/18 22:00 Temperature 99.5 F Pulse Rate 107 H 109 H 108 H Respiratory Rate 32 H 29 H 29 H Blood Pressure 160/94 H 170/94 H 148/92 H Pulse Oximetry 100 100 99 05/04/18 23:00 05/05/18 00:00 05/05/18 00:20 Temperature Pulse Rate 105 H 99 H Respiratory Rate 30 H 23 Blood Pressure 158/99 H 165/99 H Pulse Oximetry 100 99 100 05/05/18 01:00 05/05/18 01:03 05/05/18 02:00 Temperature Pulse Rate 119 H 113 H 108 H Respiratory Rate 43 H 32 H 25 H Blood Pressure 147/86 H 151/89 H Pulse Oximetry 98 100 100 05/05/18 03:00 05/05/18 04:00 Temperature Pulse Rate 109 H 110 H Respiratory Rate 27 H 34 H Blood Pressure 155/95 H 157/95 H Pulse Oximetry 100 100 Intake & Output 05/04/18 05/05/18 05/05/18 18:59 06:59 18:59 Intake Total 1500 / 1500 2400 / 2400 Balance 1500 / 1500 2400 / 2400 Weight 39.6 kg Intake: IV 1500 / 1500 2400 / 2400 NS + KCl 40 mEq Inj 1,000 ML @ 1000 / 1000 2000 / 2000 100 mls/hr IV.CONT .Q10H RENU Rx #:[id number] Maxipime Inj 2,000 MG In NS Inj 200 / 200 100 / 100 100 ML @ 200 mls/hr IV.SIG Q8H RENU Rx#:[id number] KCl 20 mEq Premix Inj 20 meq In 100 / 100 100 ml @ 50 mls/hr IV.SIG ONCE ONE Rx#:[id number] Vancomycin Inj 500 MG In NS Inj 100 / 100 100 ML @ 200 mls/hr IV.SIG Q12H RENU Rx#:[id number] Vancomycin Inj 500 MG In NS Inj 100 / 100 100 ML @ 200 mls/hr IV.SIG Q12H RENU Rx#:[id number] Ancef Inj 2,000 MG In NS Inj 80 100 / 100 200 / 200 ML @ 200 mls/hr IV.SIG Q8H RENU Rx#:[id number] Oral 0 / 0 0 / 0 Other: # Incontinent Voids 3 2 # Bowel Movements 0 0 <Sanket Vigil - 05/05/18 10:58> Narrative: GENERAL: Cachectic appearing female, lying in bed, very sedated SKIN: Warm and dry. HEAD: Normocephalic. Decayed dentition. EYES: No scleral icterus. No injection or drainage. CARDIOVASCULAR: Regular rate and rhythm without murmurs, gallops, or rubs. RESPIRATORY: Breath sounds equal bilaterally. No accessory muscle use. GASTROINTESTINAL: Abdomen thin but soft, non-tender, nondistended. MUSCULOSKELETAL: No cyanosis. 2+ nonpitting edema in both hands. BACK: Nontender without obvious deformity. <Sanket Vigil - 05/05/18 11:10> Assessment and Plan - Assessment (1) Bacteremia due to methicillin susceptible Staphylococcus aureus (MSSA) Code(s): R78.81 - Bacteremia Status: Acute (2) Polysubstance abuse Code(s): F19.10 - Other psychoactive substance abuse, uncomplicated Status: Acute (3) Suicidal ideation Code(s): R45.851 - Suicidal ideations Status: Acute (4) DVT prophylaxis Status: Acute (5) Nutrition, metabolism, and development symptoms Code(s): R63.8 - Other symptoms and signs concerning food and fluid intake Status: Acute <Andres Martinez - 05/05/18 17:13> (1) Bacteremia due to methicillin susceptible Staphylococcus aureus (MSSA) Code(s): R78.81 - Bacteremia Status: Acute Plan: -White count downtrending 10.2 today -Gram-positive cocci growing all cultures -Repeat blood cultures from 05/05 pending -Infectious disease on board * Continue vancomycin 500 mg IV every 12 until MRSA is ruled out by culture * Continue cefazolin 2000 mg every 8 hours -Continue IV fluids with potassium -2D limited echo pending -Notably, the patient has been bacteremic in the past but has not been compliant with treatment. She left AMA from her last admission (2) Polysubstance abuse Code(s): F19.10 - Other psychoactive substance abuse, uncomplicated Status: Acute Plan: Patient with history of polysubstance abuse. Currently withdrawing. -CIWA score of 13 this morning -Straight cath for toxicology study * Patient is currently incontinent of urine -Patient currently hypertensive but not tolerating p.o. intake due to sedation and nausea * 0.1 mg clonidine patch q. 7 days * Continue hydralazine 10 mg IV every 8 hours scheduled * Vasotec 1.25 mg IV every 6 hours as needed SBP greater than or equal to 180, DBP greater than or equal to 100 Haldol for agitation Consider adding quetiapine for agitation, 50 mg twice daily (3) Suicidal ideation Code(s): R45.851 - Suicidal ideations Status: Acute Plan: -Patient currently Zuñiga acted -Per psychiatry patient is not appropriate for psychiatric floor, psychiatry has requested that we reconsult after patient becomes alert and oriented (4) DVT prophylaxis Status: Acute Plan: Lovenox 40 milligrams subcu (5) Nutrition, metabolism, and development symptoms Code(s): R63.8 - Other symptoms and signs concerning food and fluid intake Status: Acute Plan: Fluids:normal saline plus KCl 40 M EQ 100 ml/hr Electrolytes: Monitor and replace as needed Nutrition: Diabetic diet (patient reports being diabetic, no A1c on record) <Sanket Vigil - 05/05/18 11:56> - Assessment and Plan 42-year-old female with a past medical history of polysubstance abuse, endocarditis presents Via Zuñiga act for polysubstance withdrawal. Patient was found to be septic on admission and is bacteremic with gram-positive cocci on blood culture. Patient currently on Vanc and Rocephin. ID consulted for endocarditis workup. 2D echo pending. CIWA protocol. <Sanket Vigil - 05/05/18 10:58> - Attending Attestation Patient case discussed with resident physicians I have independently examined the patient I have read the above note and agree with the assessment and plan as discussed with me I was involved in all medical decision making for this patient Polysubstance abuse with withdrawal: Begin weaning off the Ativan, started on quetiapine 50 mg p.o. twice daily Continue IV fluids Continue to monitor with the Ciwa protocol Bacteremia: Infectious disease following Continue IV antibiotics with Ancef and vancomycin Follow-up 2D echocardiogram Andres Martinez MD <Andres Martinez - 05/05/18 17:13>
--- NOTE | 2018-05-05 13:03 | ECHRPT ---
Indication: Sepsis Possible Endocarditis CONCLUSIONS Normal left ventricular size. Wall thickness is normal. The left ventricular systolic function is normal with an estimated ejection fraction in the range of 55-60%. Mild aortic valve regurgitation. BP: 144 / 92 HR: 116 Rhythm: MEASUREMENTS (Male / Female) Normal Values Technical Quality:Fair 2D ECHO LV Diastolic Diameter PLAX 3.9 cm 4.2 - 5.9 / 3.9 - 5.3 cm LV Systolic Diameter PLAX 2.7 cm IVS Diastolic Thickness 0.9 cm 0.6 - 1.0 / 0.6 - 0.9 cm LVPW Diastolic Thickness 0.9 cm 0.6 - 1.0 / 0.6 - 0.9 cm LV Relative Wall Thickness 0.5 Aortic Root Diameter 3.0 cm LA Systolic Diameter LX 2.7 cm 3.0 - 4.0 / 2.7 - 3.8 cm FINDINGS LEFT VENTRICLE Normal left ventricular size. Wall thickness is normal. The left ventricular systolic function is normal with an estimated ejection fraction in the range of 55-60%. RIGHT VENTRICLE Normal right ventricular size and systolic function. LEFT ATRIUM The left atrial size is normal. RIGHT ATRIUM The right atrial size is normal. ATRIAL SEPTUM Normal atrial septal thickness. AORTA The aortic root and proximal ascending aorta are normal in size on limited imaging. MITRAL VALVE Structurally normal mitral valve. AORTIC VALVE Mild aortic valve regurgitation. TRICUSPID VALVE Structurally normal tricuspid valve. PULMONARY VALVE The pulmonary valve is not well visualized. VESSELS The inferior vena cava is normal in size. PERICARDIUM No pericardial effusion. Kalpesh Estrada MD, FACC (Electronically Signed) Final Date:05 May 2018 13:02
[2018-05-05] MEDS: ceFAZolin 2 GM Premix Inj 2 GM/50 ML PIGGYBACK IV.SIG SCH ×2 (14:37→20:37)
[2018-05-05] MEDS: Senna/Docusate Sodium 8.6/50 MG Tablet PO SCH ×2 (14:38→20:37)
[2018-05-05] MEDS: Enoxaparin Inj 40 MG/0.4 ML Syringe SQ SCH (14:38)
[2018-05-05] MEDS ORDERED: Pharmacy Ordered Lab Info OTHER ONE (14:45)
[2018-05-05 15:49] LABS: Hemoglobin A1c 6.1 % (4.3-6.0)
[2018-05-05] MEDS: QUEtiapine 25 MG Tablet PO SCH (20:39)
[2018-05-06] MEDS: ceFAZolin 2 GM Premix Inj 2 GM/50 ML PIGGYBACK IV.SIG SCH ×3 (03:19→20:55)
[2018-05-06 07:36] LABS: Baso % (Auto) 0.1 % (0.0-2.0); Eos # (Auto) 0.1 th/mm3 (0.0-0.4); Eos % (Auto) 1.1 % (0.0-4.0); Hematocrit 31.6 % (35.0-46.0); Hemoglobin 9.9 gm/dL (11.6-15.3); Lymph % (Auto) 12.2 % (9.0-44.0); Mean Corpuscular HGB Conc 31.4 % (32.0-36.0); Mean Corpuscular Hemoglobin 20.1 pg (27.0-34.0); Mean Platelet Volume 6.7 fL (7.0-11.0); Mono # (Auto) 0.4 th/mm3 (0.0-0.9); Mono % (Auto) 5.3 % (0.0-8.0); Neut # (Auto) 6.8 th/mm3 (1.8-7.7); Neut % (Auto) 81.3 % (16.0-70.0); Platelet Count 439 th/mm3 (150-450); Red Blood Count 4.93 mil/mm3 (4.00-5.30); Red Cell Distribution Width 17.1 % (11.6-17.2); White Blood Count 8.4 th/mm3 (4.0-11.0)
[2018-05-06 07:56] LABS: Anion Gap 10 meq/L (5-15); Blood Urea Nitrogen 14 mg/dL (7-18); Calcium 8.5 mg/dL (8.5-10.1); Carbon Dioxide 22.7 meq/L (21.0-32.0); Chloride 105 meq/L (98-107); Glomerular Filtration Rate Greater Than 89 mL/min (>89); Glucose,Random 82 mg/dL (74-106); Potassium 3.7 meq/L (3.5-5.1); Sodium 138 meq/L (136-145)
[2018-05-06] MEDS: hydrALAZINE HCl Inj 20 MG/ML Vial IV.PUSH SCH (08:08)
[2018-05-06] MEDS: QUEtiapine 25 MG Tablet PO SCH (08:08)
[2018-05-06] MEDS: Senna/Docusate Sodium 8.6/50 MG Tablet PO SCH ×2 (08:08→20:40)
[2018-05-06] MEDS ORDERED: LORazepam 1 MG Tablet PO PRN ×2 (09:52→09:53)
--- NOTE | 2018-05-06 10:10 | P.PNID ---
Subjective Remarks: Patient is a 42-year-old female, brought into the hospital under Zuñiga act initiated by PD. She has history of polysubstance abuse and apparently was running out of medications to use and afraid that she is going to go into withdrawals. 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 At that time she had evidence of multiple embolization to different organs including the brain, as well as evidence of septic arthritis. She stabilized, and was discharged to get IV antibiotics in the outpatient infusion clinic but apparently has not been compliant and was using her PICC line for her drugs. She was readmitted to the hospital and plan at that time was for her to complete her treatment in house. Patient however signed out AMA. Since then she has had multiple ED visits with different complaints. There was an ED visit on February 28 and at that time she had fever and chills as her complaints. She had 2 blood cultures done at that time and they grew MSSA. She really has not had any treatment for that MSSA bacteremia. She has had other admissions but has signed out AMA. On this admission patient is afebrile. Her white count is elevated. 2 blood cultures done yesterday are now reported as growing gram-positive cocci. She has been known to use IV Dilaudid, heroin, cocaine, and meth. She is not hypoxic. There is been no report of any fever or chills at home. She has not been complaining of any respiratory GI or any urinary complaints. Infectious disease consultation has been requested to assist with evaluation and treatment of this patient with history of endocarditis, and polysubstance abuse. Notes reviewed D/W RN Temps ok Still lethargic, but less compared to yesterday Getting seroquel Last dose Ativan was last night around 8pm All with MSSA TTE no vegetation seen Her TTE from September with vegetation seen in MV She had MSSA from last Feb 2018 Previous GAS MV IE last September-October,, not clear if she completed her Rx due to multiple AMA Antibiotics: Vancomycin Ancef Lines: PIV Past Medical History: CVA (cerebral vascular accident) Endocarditis Hepatitis C IV drug abuse Laceration of kidney Hx of hand surgery Allergies/Adverse Reactions: Allergies No Known Allergies Allergy (Verified 05/03/18 09:02) Objective Vital Signs 05/05/18 11:00 05/05/18 12:00 05/05/18 13:00 Temperature 98.2 F Pulse Rate 112 H 121 H 109 H Respiratory Rate 32 H 38 H 41 H Blood Pressure 144/88 H 152/95 H 152/95 H Pulse Oximetry 100 100 100 05/05/18 14:00 05/05/18 15:00 05/05/18 16:00 Temperature Pulse Rate 109 H 121 H 112 H Respiratory Rate 30 H 33 H 31 H Blood Pressure 161/94 H 166/99 H 175/105 H Pulse Oximetry 100 100 100 05/05/18 16:23 05/05/18 17:00 05/05/18 17:17 Temperature Pulse Rate 113 H 122 H 129 H Respiratory Rate 32 H 33 H 47 H Blood Pressure 172/102 H 191/88 H Pulse Oximetry 100 100 100 05/05/18 18:00 05/05/18 19:00 05/05/18 19:16 Temperature Pulse Rate 138 H 133 H 128 H Respiratory Rate 32 H 34 H 39 H Blood Pressure 169/87 H 179/95 H 169/91 H Pulse Oximetry 100 99 99 05/05/18 19:33 05/05/18 20:00 05/05/18 21:00 Temperature 98.5 F Pulse Rate 143 H 120 H Respiratory Rate 37 H 30 H Blood Pressure 186/106 H 145/88 H Pulse Oximetry 100 100 100 05/05/18 22:00 05/05/18 23:00 05/05/18 23:16 Temperature Pulse Rate 109 H 111 H Respiratory Rate 14 26 H Blood Pressure 134/79 143/91 H Pulse Oximetry 98 99 99 05/06/18 00:00 05/06/18 01:00 05/06/18 02:00 Temperature 98.8 F Pulse Rate 119 H 120 H 116 H Respiratory Rate 26 H 24 26 H Blood Pressure 124/65 132/71 121/71 Pulse Oximetry 98 98 98 05/06/18 03:00 05/06/18 03:56 05/06/18 04:00 Temperature 99.2 F Pulse Rate 117 H 117 H Respiratory Rate 41 H 37 H Blood Pressure 136/74 141/83 H Pulse Oximetry 99 97 98 05/06/18 05:00 05/06/18 06:00 05/06/18 07:00 Temperature Pulse Rate 109 H 104 H 104 H Respiratory Rate 23 26 H 22 Blood Pressure 143/90 H 150/85 H Pulse Oximetry 100 100 100 05/06/18 07:16 05/06/18 08:00 05/06/18 08:05 Temperature 97.5 F L Pulse Rate 117 H 135 H 129 H Respiratory Rate 31 H 27 H 30 H Blood Pressure 159/90 H 142/82 H Pulse Oximetry 100 100 100 Intake & Output 05/05/18 05/06/18 05/06/18 18:59 06:59 18:59 Intake Total 350 / 350 1210 / 1210 Output Total 450 / 450 Balance 350 / 350 760 / 760 Weight 39.6 kg Intake: IV 150 / 150 1210 / 1210 NS + KCl 40 mEq Inj 1,000 ML @ 0 / 0 1000 / 1000 100 mls/hr IV.CONT .Q10H RENU Rx #:[id number] Vancomycin Inj 500 MG In NS Inj 100 / 100 100 / 100 100 ML @ 200 mls/hr IV.SIG Q12H RENU Rx#:[id number] Ancef 2 GM Premix Inj 2 gm In 50 / 50 110 / 110 50 ml @ 100 mls/hr IV.SIG Q8H RENU Rx#:[id number] Oral 200 / 200 Output: Urine 450 / 450 Other: # Incontinent Voids 4 2 Date of Last Bowel Movement 05/05/18 05/05/18 # Incontinent Bowel Movements 1 05/03/18 10:05 Blood - Peripheral Aerobic Blood Culture - Final Staphylococcus aureus 05/03/18 10:05 Blood - Peripheral Anaerobic Blood Culture - Final Staphylococcus aureus 05/04/18 12:19 Blood - Peripheral Aerobic Blood Culture - Preliminary gram positive cocci 05/04/18 12:19 Blood - Peripheral Anaerobic Blood Culture - Preliminary No growth in 1 day 05/04/18 12:24 Blood - Peripheral Aerobic Blood Culture - Preliminary gram positive cocci 05/04/18 12:24 Blood - Peripheral Anaerobic Blood Culture - Preliminary gram positive cocci 05/03/18 10:05 Blood - Peripheral Aerobic Blood Culture - Final Staphylococcus aureus 05/03/18 10:05 Blood - Peripheral Anaerobic Blood Culture - Final Staphylococcus aureus 05/05/18 07:57 Blood - Peripheral Aerobic Blood Culture - Pending 05/05/18 07:57 Blood - Peripheral Anaerobic Blood Culture - Pending Lab - Hematology Results 05/05/18 05/06/18 07:57 07:13 WBC 10.2 8.4 RBC 4.65 4.93 Hgb 9.2 L 9.9 L Hct 30.1 L 31.6 L MCV 64.6 L 64.0 L MCH 19.7 L 20.1 L MCHC 30.5 L 31.4 L RDW 17.0 17.1 Plt Count 478 H 439 MPV 7.0 6.7 L Prelim Diff (Auto) Route Rider Neut % (Auto) 85.4 H 81.3 H Lymph % (Auto) 9.1 12.2 [place] % (Auto) 4.9 5.3 Eos % (Auto) 0.2 1.1 Baso % (Auto) 0.4 0.1 Neut # (Auto) 8.7 H 6.8 Lymph # (Auto) 0.9 L 1.0 [place] # (Auto) 0.5 0.4 Eos # (Auto) 0.0 0.1 Baso # (Auto) 0.0 0.0 WBC Differential . . Differential Comment Auto diff final Auto diff final Lab - Chemistry Results 05/04/18 05/04/18 05/04/18 03:08 16:44 19:31 Sodium Potassium Chloride Carbon Dioxide Anion Gap BUN Creatinine Estimated GFR POC Glucose 95 74 Random Glucose Hemoglobin A1c 6.1 H Calcium Total Bilirubin AST ALT Alkaline Phosphatase Total Protein Albumin 05/04/18 05/05/18 05/05/18 20:46 02:36 07:57 Sodium 137 Potassium 3.4 L Chloride 105 Carbon Dioxide 22.3 Anion Gap 10 BUN 15 Creatinine 0.55 Estimated GFR Greater than 89 POC Glucose 81 91 Random Glucose 72 L Hemoglobin A1c Calcium 9.0 Total Bilirubin 0.6 AST 44 H ALT 22 Alkaline Phosphatase 214 H Total Protein 7.9 D Albumin 1.6 L 05/05/18 05/05/18 05/05/18 12:43 17:57 22:28 Sodium Potassium Chloride Carbon Dioxide Anion Gap BUN Creatinine Estimated GFR POC Glucose 120 H 90 103 Random Glucose Hemoglobin A1c Calcium Total Bilirubin AST ALT Alkaline Phosphatase Total Protein Albumin 05/06/18 05/06/18 03:22 07:13 Sodium 138 Potassium 3.7 Chloride 105 Carbon Dioxide 22.7 Anion Gap 10 BUN 14 Creatinine 0.51 Estimated GFR Greater than 89 POC Glucose 99 Random Glucose 82 Hemoglobin A1c Calcium 8.5 Total Bilirubin AST ALT Alkaline Phosphatase Total Protein Albumin Imaging: ITS Impressions Chest X-Ray 05/03/18 09:05 CONCLUSION: Negative examination. Physical Exam: GENERAL: Patient is a cachectic, well-developed female, less lethargic, NAD SKIN: Cool and dry. No generalized rash. Poor turgor. Has track recinos in UE. HEAD: Atraumatic. Normocephalic. No temporal wasting, or tenderness. EYES: No petechia or hemorrhage. Pupils equal, dilated, round and reactive to light. No scleral icterus. No injection or drainage. EARS, NOSE AND THROAT: Nose without bleeding or purulent nasal discharge. Unable to examine oropharynx NECK: Trachea midline. Supple and not tender, no meningeal signs CARDIOVASCULAR: Regular rate and rhythm. No murmurs, rubs or gallops heard RESPIRATORY: Clear to auscultation. Breath sounds equal bilaterally. No rales , wheezing or rhonchi ABDOMEN: Soft, flat, non-tender, nondistended. Bowel sounds present and normoactive. Has LN both groin EXTREMITIES: No clubbing, cyanosis, or edema. No joint effusion. No calf tenderness. No embolic lesions NEUROLOGICAL: Moving all extremities No Babinski or ankle clonus PSYCHIATRIC: Unable to assess LINE: No evidence of infection Assessment and Plan - Plan Impression Hx Strep MV IE, not sure if she completed Rx last summer Now with MSSA bacteremia and likely new IE due to continued IVDU - TTE negative Polysubstance abuse - heroin, cocaine, dilaudid, meth Cachexia Recommendation Continue IV Ancef Stop IV vanco Pursue ANNA - but unlikely a good surgical candidate due to her active IVDU and her poor medical compliance Repeat BC to document clearing Follow temps Follow C/S Monitor progress Very difficult Rx plan on this patient due to her poor compliance and frequent AMA D/W RN
--- NOTE | 2018-05-06 10:37 | P.PNFP ---
Subjective Interval history: Improved alertness, ate 1/4 of breakfast this morning. Not able to answer questions verbally. <Abid Steffany Jaquez N - 05/06/18 11:18> Results - Labs Result diagrams: 05/06/18 07:13 05/06/18 07:13 <Andres Martinez - 05/06/18 14:52> Abnormal lab results 05/04/18 05/05/18 05/06/18 Range/Units 03:08 16:20 07:13 Hgb 9.9 L (11.6-15.3) gm/dL Hct 31.6 L (35.0-46.0) % MCV 64.0 L (80.0-100.0) fL MCH 20.1 L (27.0-34.0) pg MCHC 31.4 L (32.0-36.0) % MPV 6.7 L (7.0-11.0) fL Neut % (Auto) 81.3 H (16.0-70.0) % POC Glucose (68-110) mg/dl Hemoglobin A1c 6.1 H (4.3-6.0) % Vancomycin Trough 4.3 L (5.0-10.0) mcg/mL 05/06/18 Range/Units 11:31 Hgb (11.6-15.3) gm/dL Hct (35.0-46.0) % MCV (80.0-100.0) fL MCH (27.0-34.0) pg MCHC (32.0-36.0) % MPV (7.0-11.0) fL Neut % (Auto) (16.0-70.0) % POC Glucose 143 H (68-110) mg/dl Hemoglobin A1c (4.3-6.0) % Vancomycin Trough (5.0-10.0) mcg/mL Short CBC 05/06/18 Range/Units 07:13 WBC 8.4 (4.0-11.0) th/mm3 Hgb 9.9 L (11.6-15.3) gm/dL Hct 31.6 L (35.0-46.0) % Plt Count 439 (150-450) th/mm3 BMP 05/06/18 07:13 Sodium 138 Potassium 3.7 Chloride 105 Carbon Dioxide 22.7 BUN 14 Creatinine 0.51 Calcium 8.5 <Frannie Martinezy - 05/06/18 14:52> Abnormal lab results 05/04/18 05/05/18 05/05/18 Range/Units 03:08 12:43 16:20 Hgb (11.6-15.3) gm/dL Hct (35.0-46.0) % MCV (80.0-100.0) fL MCH (27.0-34.0) pg MCHC (32.0-36.0) % MPV (7.0-11.0) fL Neut % (Auto) (16.0-70.0) % POC Glucose 120 H (68-110) mg/dl Hemoglobin A1c 6.1 H (4.3-6.0) % Vancomycin Trough 4.3 L (5.0-10.0) mcg/mL 05/06/18 Range/Units 07:13 Hgb 9.9 L (11.6-15.3) gm/dL Hct 31.6 L (35.0-46.0) % MCV 64.0 L (80.0-100.0) fL MCH 20.1 L (27.0-34.0) pg MCHC 31.4 L (32.0-36.0) % MPV 6.7 L (7.0-11.0) fL Neut % (Auto) 81.3 H (16.0-70.0) % POC Glucose (68-110) mg/dl Hemoglobin A1c (4.3-6.0) % Vancomycin Trough (5.0-10.0) mcg/mL Short CBC 05/06/18 Range/Units 07:13 WBC 8.4 (4.0-11.0) th/mm3 Hgb 9.9 L (11.6-15.3) gm/dL Hct 31.6 L (35.0-46.0) % Plt Count 439 (150-450) th/mm3 [facility] 05/06/18 07:13 Sodium 138 Potassium 3.7 Chloride 105 Carbon Dioxide 22.7 BUN 14 Creatinine 0.51 Calcium 8.5 <Abid R2,Steffany N - 05/06/18 10:37> Physical Exam Vital signs: Vital Signs 05/05/18 15:00 05/05/18 16:00 12/17/18 16:23 Temperature Pulse Rate 121 H 112 H 113 H Respiratory Rate 33 H 31 H 32 H Blood Pressure 166/99 H 175/105 H 172/102 H Pulse Oximetry 100 100 100 05/05/18 17:00 05/05/18 17:17 05/05/18 18:00 Temperature Pulse Rate 122 H 129 H 138 H Respiratory Rate 33 H 47 H 32 H Blood Pressure 191/88 H 169/87 H Pulse Oximetry 100 100 100 05/05/18 19:00 05/05/18 19:16 05/05/18 19:33 Temperature Pulse Rate 133 H 128 H Respiratory Rate 34 H 39 H Blood Pressure 179/95 H 169/91 H Pulse Oximetry 99 99 100 05/05/18 20:00 05/05/18 21:00 05/05/18 22:00 Temperature 98.5 F Pulse Rate 143 H 120 H 109 H Respiratory Rate 37 H 30 H 14 Blood Pressure 186/106 H 145/88 H 134/79 Pulse Oximetry 100 100 98 05/05/18 23:00 05/05/18 23:16 05/06/18 00:00 Temperature 98.8 F Pulse Rate 111 H 119 H Respiratory Rate 26 H 26 H Blood Pressure 143/91 H 124/65 Pulse Oximetry 99 99 98 05/06/18 01:00 05/06/18 02:00 05/06/18 03:00 Temperature Pulse Rate 120 H 116 H 117 H Respiratory Rate 24 26 H 41 H Blood Pressure 132/71 121/71 136/74 Pulse Oximetry 98 98 99 05/06/18 03:56 05/06/18 04:00 05/06/18 05:00 Temperature 99.2 F Pulse Rate 117 H 109 H Respiratory Rate 37 H 23 Blood Pressure 141/83 H 143/90 H Pulse Oximetry 97 98 100 05/06/18 06:00 05/06/18 07:00 05/06/18 07:16 Temperature Pulse Rate 104 H 104 H 117 H Respiratory Rate 26 H 22 31 H Blood Pressure 150/85 H 159/90 H Pulse Oximetry 100 100 100 05/06/18 08:00 05/06/18 08:05 Temperature 97.5 F L Pulse Rate 135 H 129 H Respiratory Rate 27 H 30 H Blood Pressure 142/82 H Pulse Oximetry 100 100 Intake & Output 12/17/18 12/18/18 12/18/18 18:59 06:59 18:59 Intake Total 350 / 350 1210 / 1210 Output Total 450 / 450 Balance 350 / 350 760 / 760 Weight 39.6 kg Intake: IV 150 / 150 1210 / 1210 NS + KCl 40 mEq Inj 1,000 ML @ 0 / 0 1000 / 1000 100 mls/hr IV.CONT .Q10H RENU Rx #:[id number] Vancomycin Inj 500 MG In NS Inj 100 / 100 100 / 100 100 ML @ 200 mls/hr IV.SIG Q12H RENU Rx#:[id number] Ancef 2 GM Premix Inj 2 gm In 50 / 50 110 / 110 50 ml @ 100 mls/hr IV.SIG Q8H RENU Rx#:[id number] Oral 200 / 200 Output: Urine 450 / 450 Other: # Incontinent Voids 4 2 Date of Last Bowel Movement 05/05/18 05/05/18 # Incontinent Bowel Movements 1 <Andres Martinez - 05/06/18 14:52> Vital Signs 05/05/18 11:00 05/05/18 12:00 05/05/18 13:00 Temperature 98.2 F Pulse Rate 112 H 121 H 109 H Respiratory Rate 32 H 38 H 41 H Blood Pressure 144/88 H 152/95 H 152/95 H Pulse Oximetry 100 100 100 05/05/18 14:00 05/05/18 15:00 05/05/18 16:00 Temperature Pulse Rate 109 H 121 H 112 H Respiratory Rate 30 H 33 H 31 H Blood Pressure 161/94 H 166/99 H 175/105 H Pulse Oximetry 100 100 100 05/05/18 16:23 05/05/18 17:00 05/05/18 17:17 Temperature Pulse Rate 113 H 122 H 129 H Respiratory Rate 32 H 33 H 47 H Blood Pressure 172/102 H 191/88 H Pulse Oximetry 100 100 100 05/05/18 18:00 05/05/18 19:00 05/05/18 19:16 Temperature Pulse Rate 138 H 133 H 128 H Respiratory Rate 32 H 34 H 39 H Blood Pressure 169/87 H 179/95 H 169/91 H Pulse Oximetry 100 99 99 05/05/18 19:33 05/05/18 20:00 05/05/18 21:00 Temperature 98.5 F Pulse Rate 143 H 120 H Respiratory Rate 37 H 30 H Blood Pressure 186/106 H 145/88 H Pulse Oximetry 100 100 100 05/05/18 22:00 05/05/18 23:00 05/05/18 23:16 Temperature Pulse Rate 109 H 111 H Respiratory Rate 14 26 H Blood Pressure 134/79 143/91 H Pulse Oximetry 98 99 99 05/06/18 00:00 05/06/18 01:00 05/06/18 02:00 Temperature 98.8 F Pulse Rate 119 H 120 H 116 H Respiratory Rate 26 H 24 26 H Blood Pressure 124/65 132/71 121/71 Pulse Oximetry 98 98 98 05/06/18 03:00 05/06/18 03:56 05/06/18 04:00 Temperature 99.2 F Pulse Rate 117 H 117 H Respiratory Rate 41 H 37 H Blood Pressure 136/74 141/83 H Pulse Oximetry 99 97 98 05/06/18 05:00 05/06/18 06:00 05/06/18 07:00 Temperature Pulse Rate 109 H 104 H 104 H Respiratory Rate 23 26 H 22 Blood Pressure 143/90 H 150/85 H Pulse Oximetry 100 100 100 05/06/18 07:16 05/06/18 08:00 05/06/18 08:05 Temperature 97.5 F L Pulse Rate 117 H 135 H 129 H Respiratory Rate 31 H 27 H 30 H Blood Pressure 159/90 H 142/82 H Pulse Oximetry 100 100 100 Intake & Output 05/05/18 05/06/18 05/06/18 18:59 06:59 18:59 Intake Total 350 / 350 1210 / 1210 Output Total 450 / 450 Balance 350 / 350 760 / 760 Weight 39.6 kg Intake: IV 150 / 150 1210 / 1210 NS + KCl 40 mEq Inj 1,000 ML @ 0 / 0 1000 / 1000 100 mls/hr IV.CONT .Q10H RENU Rx #:[id number] Vancomycin Inj 500 MG In NS Inj 100 / 100 100 / 100 100 ML @ 200 mls/hr IV.SIG Q12H RENU Rx#:[id number] Ancef 2 GM Premix Inj 2 gm In 50 / 50 110 / 110 50 ml @ 100 mls/hr IV.SIG Q8H RENU Rx#:[id number] Oral 200 / 200 Output: Urine 450 / 450 Other: # Incontinent Voids 4 2 Date of Last Bowel Movement 05/05/18 05/05/18 # Incontinent Bowel Movements 1 <Steffany Miller N - 05/06/18 10:37> Narrative: GENERAL: Cachectic appearing female, sitting up in bed, making eye contact. SKIN: Warm and dry. HEAD: Normocephalic. Decayed dentition. EYES: No scleral icterus. No injection or drainage. CARDIOVASCULAR: Regular rate and rhythm without murmurs, gallops, or rubs. RESPIRATORY: Breath sounds equal bilaterally. No accessory muscle use. GASTROINTESTINAL: Abdomen non distended. MUSCULOSKELETAL: No cyanosis, minimal edema. BACK: Nontender without obvious deformity. <Steffany Miller N - 05/06/18 11:18> Assessment and Plan - Assessment (1) Bacteremia due to methicillin susceptible Staphylococcus aureus (MSSA) Code(s): R78.81 - Bacteremia Status: Acute (2) Polysubstance abuse Code(s): F19.10 - Other psychoactive substance abuse, uncomplicated Status: Acute (3) Suicidal ideation Code(s): R45.851 - Suicidal ideations Status: Acute (4) Nutrition, metabolism, and development symptoms Code(s): R63.8 - Other symptoms and signs concerning food and fluid intake Status: Acute (5) DVT prophylaxis Status: Acute <Andres Martinez - 05/06/18 14:52> (1) Bacteremia due to methicillin susceptible Staphylococcus aureus (MSSA) Code(s): R78.81 - Bacteremia Status: Acute Plan: Hx of endocarditis and not completing tx Staph A 05/03 cx, gram + cocci 05/04 cx growing, sensitivities pending Repeat blood cultures from 05/05 pending -Infectious disease on board * Continue vancomycin 500 mg IV every 12 until MRSA is ruled out by culture * Continue cefazolin 2000 mg every 8 hours -Continue IV fluids with potassium -2D limited echo showed no vegetation (2) Polysubstance abuse Code(s): F19.10 - Other psychoactive substance abuse, uncomplicated Status: Acute Plan: Patient with history of polysubstance abuse. -CIWA scores 6 this AM, discon't protocol this AM. Ativan 1 mg PRN for agitation on board -Straight cath for toxicology study * Patient is currently incontinent of urine -Con't HTN control w/: * 0.1 mg clonidine patch q. 7 days * Continue hydralazine 10 mg IV every 8 hours scheduled * Vasotec 1.25 mg IV every 6 hours as needed SBP greater than or equal to 180, DBP greater than or equal to 100 Added Seroquel 50 mg yesterday, s/p 2 doses last night and this AM. Adjust to Seroquel 25 mg BID to increase alertness (3) Suicidal ideation Code(s): R45.851 - Suicidal ideations Status: Acute Plan: -Patient currently Zuñiga acted -Per psychiatry patient is not appropriate for psychiatric floor, psychiatry has requested that we reconsult after patient becomes alert and oriented (4) Nutrition, metabolism, and development symptoms Code(s): R63.8 - Other symptoms and signs concerning food and fluid intake Status: Acute Plan: Fluids:normal saline plus KCl 40 M EQ 100 ml/hr Electrolytes: Monitor and replace as needed Nutrition: Diabetic diet (patient reports being diabetic, no A1c on record) (5) DVT prophylaxis Status: Acute Plan: Lovenox 40 milligrams subcu <Steffany Miller - 05/06/18 11:12> - Assessment and Plan 42-year-old female with a past medical history of polysubstance abuse, endocarditis presents Via Zuñiga act for polysubstance withdrawal. Patient was found to be septic on admission and is bacteremic with gram-positive cocci on blood culture. Patient currently on Vanc and Rocephin. ID consulted for endocarditis workup. 2D echo pending. [facility] protocol. <Steffany Miller - 05/06/18 10:37> Discharge Planning: Waiting ID recommendations and patient's increased alertness and return to mental baseline before further discharge planning <Steffany Miller - 05/06/18 11:18> - Attending Attestation Patient case discussed with resident physicians I have independently examined the patient I have read the above note and agree with the assessment and plan as discussed with me I was involved in all medical decision making for this patient Continue IV antibiotics per infectious disease -Ancef -Vancomycin discontinued per infectious disease Patient to be transferred out of the unit Seroquel decreased to 25 mg p.o. twice daily due to sedation Andres Martinez MD <Andres Martinez - 05/06/18 14:52>
[2018-05-06] MEDS: Enoxaparin Inj 40 MG/0.4 ML Syringe SQ SCH (14:59)
--- NOTE | 2018-05-06 17:04 | ECG ---
Date Performed: 05/05/2018 Time Performed: 15:55:27 PTAGE: 42 years EKG: SINUS TACHYCARDIA WITH SHORT OH INTERVAL MODERATE VOLTAGE CRITERIA FOR LVH, CONSIDER NORMAL VARIANT ABNORMAL RHYTHM ECG PREVIOUS TRACING : 02/28/2018 02.43 Since the previous tracing, no significant change noted DOCTOR: Vahid Orellana Interpretating Date/Time 05/06/2018 17:03:10
[2018-05-06] MEDS ORDERED: Pharmacy Ordered Lab Info OTHER ONE (17:45)
[2018-05-06] MEDS: Haloperidol Inj 5 MG/ML Ampul IV.PUSH PRN (18:14)
[2018-05-07] MEDS: hydrALAZINE 25 MG Tablet PO PRN ×2 (00:01→14:31)
[2018-05-07] MEDS: Haloperidol Inj 5 MG/ML Ampul IV.PUSH PRN ×3 (00:01→03:48)
[2018-05-07] MEDS ORDERED: Pharmacy Ordered Lab Info OTHER ONE (02:45)
[2018-05-07] MEDS: QUEtiapine 25 MG Tablet PO PRN ×2 (03:17→23:17)
[2018-05-07] MEDS: ceFAZolin 2 GM Premix Inj 2 GM/50 ML PIGGYBACK IV.SIG SCH ×3 (03:17→20:39)
--- NOTE | 2018-05-07 09:28 | P.PNFP ---
Subjective Interval history: Patient was seen at bedside this morning. Patient is alert and oriented x3. Overnight patient became agitated and was ultimately put on physical restraints. Patient reports having dry mouth and not wanting to be in the hospital. Patient denies any generalized pain, chest pain, nausea, difficulty breathing, or vomiting. Patient does report extreme thirst. Patient was educated on her current prognosis as well as her current treatment. Patient had no questions. <Sanket Cramer - 05/07/18 09:44> Results - Labs Result diagrams: 05/06/18 07:13 05/07/18 03:00 <Andres Martinez - 05/07/18 14:51> Abnormal lab results 05/06/18 Range/Units 11:31 POC Glucose 143 H (68-110) mg/dl <Sanket Cramer - 05/07/18 09:27> Physical Exam Vital signs: Vital Signs 05/06/18 15:00 05/06/18 16:00 05/06/18 18:00 Temperature 98.3 F Pulse Rate 128 H 124 H 124 H Respiratory Rate 30 H 31 H Blood Pressure 158/105 H Pulse Oximetry 05/06/18 20:00 05/06/18 22:00 05/07/18 00:00 Temperature 98.4 F 98.4 F Pulse Rate 116 H 124 H 119 H Respiratory Rate 20 38 H Blood Pressure 165/98 H 171/97 H Pulse Oximetry 98 100 05/07/18 02:00 05/07/18 04:00 05/07/18 06:00 Temperature 98.6 F Pulse Rate 109 H 107 H 102 H Respiratory Rate 20 Blood Pressure 145/86 H Pulse Oximetry 100 05/07/18 07:00 05/07/18 08:00 05/07/18 08:01 Temperature 98.8 F Pulse Rate 100 H 101 H 103 H Respiratory Rate 18 19 19 Blood Pressure 170/91 H Pulse Oximetry 100 100 100 05/07/18 08:38 05/07/18 09:00 05/07/18 10:00 Temperature Pulse Rate 112 H 111 H Respiratory Rate 22 28 H Blood Pressure 140/104 H Pulse Oximetry 100 100 100 05/07/18 11:00 05/07/18 12:00 05/07/18 13:00 Temperature Pulse Rate 116 H 113 H 119 H Respiratory Rate 27 H 26 H Blood Pressure 187/99 H Pulse Oximetry Intake & Output 05/06/18 05/07/18 05/07/18 18:59 06:59 18:59 Intake Total 2255 / 2255 1395 / 1395 Output Total 350 / 350 Balance 2255 / 2255 1045 / 1045 Weight 39.6 kg Intake: IV 2054 1110 / 1110 NS + KCl 40 mEq Inj 1,000 ML @ 1999 / 1999 1000 / 1000 100 mls/hr IV.CONT .Q10H RENU Rx #:[id number] Ancef 2 GM Premix Inj 2 gm In 55 / 55 110 / 110 50 ml @ 100 mls/hr IV.SIG Q8H RENU Rx#:[id number] Oral 200 / 200 285 / 285 Output: Urine 350 / 350 Other: # Incontinent Voids 5 2 Date of Last Bowel Movement 05/05/18 05/07/18 05/07/18 # Bowel Movements 0 # Incontinent Bowel Movements 2 <Andres Martinez - 05/07/18 14:51> Vital Signs 05/06/18 10:00 05/06/18 11:00 05/06/18 12:00 Temperature 97.5 F L Pulse Rate 130 H 126 H 122 H Respiratory Rate 33 H 28 H 25 H Blood Pressure Pulse Oximetry 98 99 05/06/18 12:08 05/06/18 13:00 05/06/18 14:00 Temperature Pulse Rate 118 H 133 H 137 H Respiratory Rate 22 31 H 29 H Blood Pressure 141/88 H Pulse Oximetry 91 L 100 96 05/06/18 15:00 05/06/18 16:00 05/06/18 18:00 Temperature 98.3 F Pulse Rate 128 H 124 H 124 H Respiratory Rate 30 H 31 H Blood Pressure 158/105 H Pulse Oximetry 05/06/18 20:00 05/06/18 22:00 05/07/18 00:00 Temperature 98.4 F 98.4 F Pulse Rate 116 H 124 H 119 H Respiratory Rate 20 38 H Blood Pressure 165/98 H 171/97 H Pulse Oximetry 98 100 05/07/18 02:00 05/07/18 04:00 05/07/18 06:00 Temperature 98.6 F Pulse Rate 109 H 107 H 102 H Respiratory Rate 20 Blood Pressure 145/86 H Pulse Oximetry 100 05/07/18 08:38 Temperature Pulse Rate Respiratory Rate Blood Pressure Pulse Oximetry 100 Intake & Output 05/06/18 05/07/18 05/07/18 18:59 06:59 18:59 Intake Total 2255 / 2255 1395 / 1395 Output Total 350 / 350 Balance 2255 / 2255 1045 / 1045 Weight 39.6 kg Intake: IV 2054 / 2054 1110 / 1110 NS + KCl 40 mEq Inj 1,000 ML @ 2000 / 2000 1000 / 1000 100 mls/hr IV.CONT .Q10H RENU Rx #:[id number] Ancef 2 GM Premix Inj 2 gm In 55 / 55 110 / 110 50 ml @ 100 mls/hr IV.SIG Q8H RENU Rx#:[id number] Oral 200 / 200 285 / 285 Output: Urine 350 / 350 Other: # Incontinent Voids 5 2 Date of Last Bowel Movement 05/05/18 05/07/18 # Bowel Movements 0 # Incontinent Bowel Movements 2 <Vigil Sanket Jacobson Lula - 05/07/18 09:27> Narrative: GENERAL: Cachectic appearing female, sitting up in bed, making eye contact. SKIN: Warm and dry. Patient has dry cracked desquamating lips. Patient also has dry desquamation on the posterior tongue. HEAD: Normocephalic. Decayed dentition. EYES: No scleral icterus. No injection or drainage. CARDIOVASCULAR: Regular rate and rhythm without murmurs, gallops, or rubs. RESPIRATORY: Breath sounds equal bilaterally. No accessory muscle use. GASTROINTESTINAL: Abdomen non distended. MUSCULOSKELETAL: No cyanosis, minimal edema. BACK: Nontender without obvious deformity. <Sanket Cramer Lula - 05/07/18 09:44> Assessment and Plan - Assessment (1) Bacteremia due to methicillin susceptible Staphylococcus aureus (MSSA) Code(s): R78.81 - Bacteremia Status: Acute (2) Polysubstance abuse Code(s): F19.10 - Other psychoactive substance abuse, uncomplicated Status: Acute (3) Suicidal ideation Code(s): R45.851 - Suicidal ideations Status: Acute (4) Nutrition, metabolism, and development symptoms Code(s): R63.8 - Other symptoms and signs concerning food and fluid intake Status: Acute (5) DVT prophylaxis Status: Acute <Andres Martinez - 05/07/18 14:51> (1) Bacteremia due to methicillin susceptible Staphylococcus aureus (MSSA) Code(s): R78.81 - Bacteremia Status: Acute Plan: Hx of endocarditis and not completing tx Staph A 05/03 cx, gram + cocci 05/05, , and blood cx show no growth, sensitivities pending -Infectious disease on board * Discontinue vancomycin 500 mg IV every 12\ * Continue cefazolin 2000 mg every 8 hours * Transition to Clindamycin PO after IV abx course -Continue IV fluids with potassium -2D limited echo showed no vegetation -Possible ANNA per ID (2) Polysubstance abuse Code(s): F19.10 - Other psychoactive substance abuse, uncomplicated Status: Acute Plan: Patient with history of polysubstance abuse. -CINC protocol cancelled. -Con't HTN controlled w/: * 0.1 mg clonidine patch q. 7 days * Continue hydralazine 10 mg IV every 8 hours scheduled * Vasotec 1.25 mg IV every 6 hours as needed SBP greater than or equal to 180, DBP greater than or equal to 100 Patient agitated overnight, screaming and disruptive to the floor. Continue restraints for patient's own safety Continue Seroquel 25 mg BID yesterday Continue Haldol as needed for agitation Ativan 1 mg PRN for agitation on board (3) Suicidal ideation Code(s): R45.851 - Suicidal ideations Status: Acute Plan: -Patient currently Zuñiga acted -Patient's previous psychiatric evaluation deemed not appropriate for psychiatric floor. -Psychiatry consulted, follow-up with psychiatric recommendations (4) Nutrition, metabolism, and development symptoms Code(s): R63.8 - Other symptoms and signs concerning food and fluid intake Status: Acute Plan: Fluids:normal saline plus KCl 40 M EQ 100 ml/hr Electrolytes: Monitor and replace as needed Nutrition: Diabetic diet (patient reports being diabetic, no A1c on record) (5) DVT prophylaxis Status: Acute Plan: Lovenox 40 milligrams subcu <Sanket Cramer - 05/07/18 09:30> - Assessment and Plan 42-year-old female with a past medical history of polysubstance abuse, endocarditis presents Via Zuñiga act for polysubstance withdrawal. Patient was found to be septic on admission and is bacteremic with gram-positive cocci on blood culture. Patient currently on Vanc and Rocephin. ID consulted for endocarditis workup. 2D echo pending. [facility] protocol. <Sanket Cramer - 05/07/18 09:27> - Attending Attestation Pt. examined independent of resident physicians this morning during medical rounds I have read the above note and agree with the assessment/plan as discussed with me I was involved in all medical decision making for this patient Andres Martinez MD <Andres Martinez - 05/07/18 14:51>
--- NOTE | 2018-05-07 11:55 | P.CONPSY ---
Provisional Diagnosis Admission Date: May 03, 2018 11:46 Pin[place] I.: Adjustment disorder with depressed mood vs substance-induced mood disorder, polysubstance dependence including crack cocaine, heroine, methamphetamines History of Present Illness Service: Critical care Primary Care Provider: UNKNOWN Chief Complaint: SI History of Present Illness: The patient is a 42-year-old woman, homeless in the [facility], single, unemployed, with a psychiatric history of polysubstance dependence including heroine, crack cocaine, methamphetamines, IV drug user, no previous psychiatric hospitalizations, no previous suicidal attempts, she was seen by Dr. Harry on May 04, documentation review, he left the patient for reevaluation, the patient came to the hospital presenting to the emergency department Via Zuñiga act. She has a known polysubstance abuser and apparently has been using methamphetamines heavily recently, she has run out of methamphetamines and appears to be having withdrawals. Upon initiation in the emergency department, she made comments expressing intention to harm herself. She endorses polysubstance abuse recently including heroin, methamphetamines, cocaine, and Dilaudid. The patient has been quite agitated and psychotic in the ICU, treated with Seroquel 25 mg, Haldol 1 mg IV as needed every 8 hours. Chart reviewed. Case discussed with nursing charge. On my psychiatric evaluation today I find a patient that is restrained in 4 points, quite agitated , disorganized, but able to provide some information. She admits that she has been using multiple drugs in the last days. The patient reports to be very depressed, in a severe withdrawal at this moment, unable to contract for safety , stating that she wants to . No active suicidal plan at the moment. Patient is crying, seems to be in a lot of distress. Defecated, reporting pain due to withdrawal. PMFSH - History History Provided By: Patient - Medical History Medical History: Medical History (Last Reviewed 05/04/18 @ 14:41 by Earnest Harry DO) CVA (cerebral vascular accident) Endocarditis Hepatitis C IV drug abuse Laceration of kidney - Surgical History Surgical History: Surgical History (Last Reviewed 05/04/18 @ 09:46 by Kassandra Javier MD) Hx of hand surgery - Family History Family History: Family History (Last Reviewed 05/04/18 @ 09:46 by Kassandra Javier MD) Other Family history unknown - Tobacco History Second Hand Smoke Exposure: Yes Tobacco Use In Past 30 Days: Yes Smoking Status: Current every day smoker Tobacco Type: Cigarettes - Alcohol History How Often Do You Have a Drink Containing Alcohol: Never - Substance Use History Substance History: Active Abuse - Substance Use Type Crack/Cocaine Status: Active Route Used: By Mouth, Inhalation, Intravenously Reason for Use: Calm Down - Immunization History Tetanus Immunization: Unsure Hx Influenza Vaccine This Season: No Medications and Allergies Active Medications: Active Medications Acetaminophen (Tylenol) 650 mg PO Q4H PRN PRN Reason: Temp > 100.4 Al Hydroxide/Mg Hydroxide (Milk Of [place]ino) 30 ml PO Q12H PRN PRN Reason: Mild Constipation Bisacodyl (Dulcolax Supp) 10 mg RECTAL DAILY PRN PRN Reason: SEVERE CONSITIPATION Clonidine HCl (Catapress-Tts 0.1 Mg Patch.7d) 1 patch T-DERMAL Q7D [facility] Last Admin: 05/03/18 20:00 Dose: 1 patch Enalaprilat (Vasotec Inj) 1.25 mg IV.PUSH Q6H PRN PRN Reason: SBP>=180 or DBP>=100 Last Admin: 05/06/18 18:14 Dose: 1.25 mg Enoxaparin Sodium (Lovenox Inj) 40 mg SQ Q24H [facility] Last Admin: 05/06/18 14:59 Dose: 40 mg Hydralazine HCl (Apresoline) 25 mg PO TID PRN PRN Reason: HYPERTENSION Last Admin: 05/07/18 00:01 Dose: 25 mg Sodium Chloride (Ns Inj) 1,000 mls @ 0 mls/hr IV.SIG .Q0M [facility] Last Infusion: 05/03/18 11:55 Dose: Infused Sodium Chloride (Ns Inj) 800 mls @ 0 mls/hr IV.SIG .Q0M [facility] Last Infusion: 05/03/18 11:54 Dose: Infused Potassium Chloride/Sodium Chloride (Ns + Kcl 40 Meq Inj) 1,000 mls @ 100 mls/ hr IV.CONT .Q10H [facility] Last Admin: 05/07/18 05:46 Dose: 100 mls/hr Cefazolin Sodium/Dextrose (Ancef 2 Gm Premix Inj) 2 gm in 50 mls @ 100 mls/hr IV.SIG Q8H [facility] Last Infusion: 05/07/18 04:14 Dose: Infused Lactulose (Lactulose Liq) 30 ml PO DAILY PRN PRN Reason: SEVERE CONSITIPATION Lorazepam (Ativan) 1 mg PO Q6H PRN PRN Reason: AGITATION Ondansetron HCl (Zofran Inj) 4 mg IV.PUSH Q6H PRN PRN Reason: NAUSEA OR VOMITING Patch Removal (Remove Old Patch) 1 each T-DERMAL Q7D [facility] Quetiapine Fumarate (Seroquel) 25 mg PO BID PRN PRN Reason: AGITATION Last Admin: 05/07/18 03:17 Dose: 25 mg Quetiapine Fumarate (Seroquel) 50 mg PO BID [facility] Senna/Docusate Sodium (Silvia-Colace) 1 tab PO BID [facility] Last Admin: 05/06/18 20:40 Dose: Not Given Sennosides (Senokot) 17.2 mg PO Q12H PRN PRN Reason: Moderate Constipation Sodium Chloride (Ns Flush) 2 ml IV.FLUSH BID [facility] Last Admin: 05/06/18 20:40 Dose: Not Given Sodium Chloride (Ns Flush) 2 ml IV.FLUSH PRN PRN PRN Reason: FLUSH AFTER USING IV ACCESS Allergies Allergy/AdvReac Type Severity Reaction Status Date / Time No Known Allergies Allergy Verified 05/03/18 09:02 Home Medications Medication Instructions Recorded Confirmed Type No Known Home Medications 12/18/17 05/03/18 History Exam Vital signs: Vital Signs 05/06/18 12:00 05/06/18 12:08 05/06/18 13:00 Temperature 97.5 F L Pulse Rate 122 H 118 H 133 H Respiratory Rate 25 H 22 31 H Blood Pressure 141/88 H Pulse Oximetry 99 91 L 100 05/06/18 14:00 05/06/18 15:00 05/06/18 16:00 Temperature 98.3 F Pulse Rate 137 H 128 H 124 H Respiratory Rate 29 H 30 H 31 H Blood Pressure 158/105 H Pulse Oximetry 96 05/06/18 18:00 05/06/18 20:00 05/06/18 22:00 Temperature 98.4 F Pulse Rate 124 H 116 H 124 H Respiratory Rate 20 Blood Pressure 165/98 H Pulse Oximetry 98 05/07/18 00:00 05/07/18 02:00 05/07/18 04:00 Temperature 98.4 F 98.6 F Pulse Rate 119 H 109 H 107 H Respiratory Rate 38 H 20 Blood Pressure 171/97 H 145/86 H Pulse Oximetry 100 100 05/07/18 06:00 05/07/18 08:38 Temperature Pulse Rate 102 H Respiratory Rate Blood Pressure Pulse Oximetry 100 Intake & Output 05/06/18 05/07/18 05/07/18 18:59 06:59 18:59 Intake Total 2255 / 2255 1395 / 1395 Output Total 350 / 350 Balance 2255 / 2255 1045 / 1045 Weight 39.6 kg Intake: IV 2054 / 2054 1110 / 1110 NS + KCl 40 mEq Inj 1,000 ML @ 2000 / 2000 1000 / 1000 100 mls/hr IV.CONT .Q10H [facility] Rx #:[id number] Ancef 2 GM Premix Inj 2 gm In 55 / 55 110 / 110 50 ml @ 100 mls/hr IV.SIG Q8H [facility] Rx#:[id number] Oral 200 / 200 285 / 285 Output: Urine 350 / 350 Other: # Incontinent Voids 5 2 Date of Last Bowel Movement 05/05/18 05/07/18 # Bowel Movements 0 # Incontinent Bowel Movements 2 Mental Status Examination Appearance: Dirty, Disheveled Consciousness: Lethargic Orientation: x4 Motor Activity: Abnormal gait Speech: Rapid, Incoherent Language: Adequate Fund of Knowledge: Poor Attention and Concentration: Inadequate Memory: Unremarkable Mood: Sad Affect: Irritable, Anxious, Other (n/a) Thought Process & Associations: Loose associations Thought Content: Bizarre thinking, Racing thoughts Hallucination Type: None (n/a) Delusion Type: None Suicidal Ideation: Yes Suicidal Plan: No Suicidal Intention: No Homicidal Ideation: No Homicidal Plan: No Homicidal Intention: No Insight: Adequate Judgment: Poor Assessment and Plan - Assessment (1) Adjustment disorder with withdrawal Code(s): F43.29 - Adjustment disorder with other symptoms Status: Acute - Plan Plan: Continue under Zuñiga act Justification for Continued Inpatient Stay: Patient continues to express suicidal ideation in the context of acute withdrawal and distress. She is also disorganized, even though today more cooperative and fully oriented. We will increase Seroquel to 50 mg twice daily for behavioral control. Haldol 5 mg every 8 hours IM as needed aggressive behavior and agitation. QTc interval is 390. Continue clonidine 0.1 mg every 8 hours, CIWA protocol, for withdrawal. Patient will continue on the Zuñiga act, to be transferred to [facility] psych once medically stable.
[2018-05-07] MEDS: Senna/Docusate Sodium 8.6/50 MG Tablet PO SCH ×2 (13:44→20:40)
[2018-05-07] MEDS: Enoxaparin Inj 40 MG/0.4 ML Syringe SQ SCH (14:31)
[2018-05-07] MEDS: LORazepam 1 MG Tablet PO PRN (14:34)
[2018-05-07] MEDS: QUEtiapine 25 MG Tablet PO SCH (17:50)
[2018-05-07] MEDS ORDERED: QUEtiapine 25 MG Tablet PO SCH (21:00)
[2018-05-08] MEDS: ceFAZolin 2 GM Premix Inj 2 GM/50 ML PIGGYBACK IV.SIG SCH ×3 (04:35→20:08)
[2018-05-08] MEDS: QUEtiapine 25 MG Tablet PO SCH ×2 (06:19→18:25)
[2018-05-08] MEDS: Senna/Docusate Sodium 8.6/50 MG Tablet PO SCH ×2 (08:28→20:48)
[2018-05-08 08:52] LABS: Baso # (Auto) 0.1 th/mm3 (0.0-0.2); Baso % (Auto) 0.7 % (0.0-2.0); Eos # (Auto) 0.1 th/mm3 (0.0-0.4); Hematocrit 26.2 % (35.0-46.0); Hemoglobin 8.1 gm/dL (11.6-15.3); Lymph # (Auto) 0.8 th/mm3 (1.0-4.8); Lymph % (Auto) 10.7 % (9.0-44.0); Mean Corpuscular Hemoglobin 19.9 pg (27.0-34.0); Mean Corpuscular Volume 64.5 fL (80.0-100.0); Mean Platelet Volume 7.2 fL (7.0-11.0); Mono # (Auto) 0.4 th/mm3 (0.0-0.9); Mono % (Auto) 5.9 % (0.0-8.0); Neut # (Auto) 6.3 th/mm3 (1.8-7.7); Neut % (Auto) 81.7 % (16.0-70.0); Platelet Count 327 th/mm3 (150-450); Red Blood Count 4.06 mil/mm3 (4.00-5.30); Red Cell Distribution Width 17.2 % (11.6-17.2); White Blood Count 7.6 th/mm3 (4.0-11.0)
[2018-05-08 08:56] LABS: Mean Corpuscular HGB Conc 30.9 % (32.0-36.0)
--- NOTE | 2018-05-08 10:33 | P.PNFP ---
Subjective Interval history: Patient eating well, ate 75% of dinner last night, 50% breakfast this AM. Denies fevers/chill, SOB. Having muscle aches. No agitation over night after Seroquel increased to 50 BID yesterday. Patient in restraints in the room. Speech is still muffled. <Steffany Miller N - 05/08/18 11:19> Results - Labs Result diagrams: 05/08/18 08:24 05/07/18 03:00 <Andres Martinez - 05/08/18 15:30> Abnormal lab results 05/04/18 05/08/18 05/08/18 Range/Units 15:00 03:47 08:24 Hgb 8.1 L (11.6-15.3) gm/dL Hct 26.2 L (35.0-46.0) % MCV 64.5 L (80.0-100.0) fL MCH 19.9 L (27.0-34.0) pg MCHC 30.9 L (32.0-36.0) % Neut % (Auto) 81.7 H (16.0-70.0) % Lymph # (Auto) 0.8 L (1.0-4.8) th/mm3 POC Glucose 155 H (68-110) mg/dl Urine Fentanyl Positive A (Negative) Short CBC 05/08/18 Range/Units 08:24 WBC 7.6 (4.0-11.0) th/mm3 Hgb 8.1 L (11.6-15.3) gm/dL Hct 26.2 L (35.0-46.0) % Plt Count 327 (150-450) th/mm3 <Andres Martinez - 05/08/18 15:30> Abnormal lab results 05/04/18 05/08/18 05/08/18 Range/Units 15:00 03:47 08:24 Hgb 8.1 L (11.6-15.3) gm/dL Hct 26.2 L (35.0-46.0) % MCV 64.5 L (80.0-100.0) fL MCH 19.9 L (27.0-34.0) pg MCHC 30.9 L (32.0-36.0) % Neut % (Auto) 81.7 H (16.0-70.0) % Lymph # (Auto) 0.8 L (1.0-4.8) th/mm3 POC Glucose 155 H (68-110) mg/dl Urine Fentanyl Positive A (Negative) Short CBC 05/08/18 Range/Units 08:24 WBC 7.6 (4.0-11.0) th/mm3 Hgb 8.1 L (11.6-15.3) gm/dL Hct 26.2 L (35.0-46.0) % Plt Count 327 (150-450) th/mm3 <Abid R2Steffany N - 05/08/18 10:33> Physical Exam Vital signs: Vital Signs 05/07/18 15:46 05/07/18 16:00 05/07/18 17:00 Temperature Pulse Rate 128 H 129 H 124 H Respiratory Rate 24 27 H 25 H Blood Pressure 155/96 H 162/98 H Pulse Oximetry 05/07/18 17:05 05/07/18 18:00 05/07/18 20:00 Temperature 97.9 F Pulse Rate 122 H 120 H 109 H Respiratory Rate 22 19 Blood Pressure 168/87 H 166/99 H Pulse Oximetry 100 05/07/18 20:33 05/07/18 20:35 05/07/18 21:00 Temperature Pulse Rate 109 H 110 H 110 H Respiratory Rate 18 18 18 Blood Pressure 153/94 H 168/98 H Pulse Oximetry 100 100 99 05/07/18 22:00 05/07/18 22:05 05/07/18 23:00 Temperature Pulse Rate 118 H 119 H 111 H Respiratory Rate 21 22 19 Blood Pressure 166/97 H 169/94 H 159/93 H Pulse Oximetry 100 100 100 05/08/18 00:00 05/08/18 01:00 05/08/18 02:00 Temperature 98.2 F Pulse Rate 110 H 105 H 104 H Respiratory Rate 20 18 18 Blood Pressure 140/83 162/94 H 147/93 H Pulse Oximetry 100 100 100 05/08/18 03:00 05/08/18 04:00 05/08/18 06:00 Temperature 98.1 F Pulse Rate 102 H 104 H 111 H Respiratory Rate 18 18 Blood Pressure 168/88 H 150/88 H Pulse Oximetry 100 100 05/08/18 07:00 05/08/18 08:00 05/08/18 08:25 Temperature 98.3 F Pulse Rate 97 H 106 H 100 H Respiratory Rate 16 16 15 Blood Pressure 134/85 Pulse Oximetry 100 99 100 05/08/18 09:00 05/08/18 10:00 05/08/18 10:01 Temperature Pulse Rate 109 H 101 H 100 H Respiratory Rate 17 14 14 Blood Pressure 125/74 140/84 Pulse Oximetry 100 100 100 05/08/18 11:00 05/08/18 12:00 Temperature Pulse Rate 104 H 109 H Respiratory Rate 18 20 Blood Pressure 133/83 122/73 Pulse Oximetry 100 100 Intake & Output 05/07/18 05/08/18 05/08/18 18:59 06:59 18:59 Intake Total 1905 / 1905 290 / 290 1200 / 1200 Output Total 1600 / 1600 1200 / 1200 Balance 305 / 305 -910 / -910 1200 / 1200 Weight 39.6 kg Intake: IV 1055 / 1055 90 / 90 1200 / 1200 NS + KCl 40 mEq Inj 1,000 ML @ 1000 / 1000 1200 / 1200 100 mls/hr IV.CONT .Q10H [facility] Rx #:[id number] Ancef 2 GM Premix Inj 2 gm In 55 / 55 90 / 90 50 ml @ 100 mls/hr IV.SIG Q8H [facility] Rx#:[id number] Oral 850 / 850 200 / 200 Output: Urine 1600 / 1600 1200 / 1200 Other: Date of Last Bowel Movement 05/07/18 05/07/18 05/07/18 # Bowel Movements 1 <Andres Martinez - 05/08/18 15:30> Vital Signs 05/07/18 11:00 05/07/18 12:00 05/07/18 13:00 Temperature Pulse Rate 116 H 113 H 119 H Respiratory Rate 27 H 26 H Blood Pressure 187/99 H Pulse Oximetry 05/07/18 14:00 05/07/18 15:00 05/07/18 15:46 Temperature Pulse Rate 122 H 136 H 128 H Respiratory Rate 19 34 H 24 Blood Pressure 190/95 H 155/96 H Pulse Oximetry 05/07/18 16:00 05/07/18 17:00 05/07/18 17:05 Temperature Pulse Rate 129 H 124 H 122 H Respiratory Rate 27 H 25 H 22 Blood Pressure 162/98 H 168/87 H Pulse Oximetry 05/07/18 18:00 05/07/18 20:00 05/07/18 20:33 Temperature 97.9 F Pulse Rate 120 H 109 H 109 H Respiratory Rate 19 18 Blood Pressure 166/99 H Pulse Oximetry 100 100 05/07/18 20:35 05/07/18 21:00 05/07/18 22:00 Temperature Pulse Rate 110 H 110 H 118 H Respiratory Rate 18 18 21 Blood Pressure 153/94 H 168/98 H 166/97 H Pulse Oximetry 100 99 100 05/07/18 22:05 05/07/18 23:00 05/08/18 00:00 Temperature 98.2 F Pulse Rate 119 H 111 H 110 H Respiratory Rate 22 19 20 Blood Pressure 169/94 H 159/93 H 140/83 Pulse Oximetry 100 100 100 05/08/18 01:00 05/08/18 02:00 05/08/18 03:00 Temperature Pulse Rate 105 H 104 H 102 H Respiratory Rate 18 18 18 Blood Pressure 162/94 H 147/93 H 168/88 H Pulse Oximetry 100 100 100 05/08/18 04:00 05/08/18 06:00 05/08/18 07:00 Temperature 98.1 F 98.3 F Pulse Rate 104 H 111 H 97 H Respiratory Rate 18 16 Blood Pressure 150/88 H Pulse Oximetry 100 100 05/08/18 08:00 05/08/18 08:25 05/08/18 09:00 Temperature Pulse Rate 106 H 100 H 109 H Respiratory Rate 16 15 17 Blood Pressure 134/85 125/74 Pulse Oximetry 99 100 100 Intake & Output 05/07/18 05/08/18 05/08/18 18:59 06:59 18:59 Intake Total 1905 / 1905 290 / 290 1000 / 1000 Output Total 1600 / 1600 1200 / 1200 Balance 305 / 305 -910 / -910 1000 / 1000 Weight 39.6 kg Intake: IV 1055 / 1055 90 / 90 1000 / 1000 NS + KCl 40 mEq Inj 1,000 ML @ 1000 / 1000 1000 / 1000 100 mls/hr IV.CONT .Q10H [facility] Rx #:[id number] Ancef 2 GM Premix Inj 2 gm In 55 / 55 90 / 90 50 ml @ 100 mls/hr IV.SIG Q8H [facility] Rx#:[id number] Oral 850 / 850 200 / 200 Output: Urine 1600 / 1600 1200 / 1200 Other: Date of Last Bowel Movement 05/07/18 05/07/18 05/07/18 # Bowel Movements 1 <Steffany Miller N - 05/08/18 10:33> Narrative: GENERAL: Pale, cachectic appearing female, calmly laying in bed, more conversant and alert compared to yesterday. Answers questions, in restraints. SKIN: Patient has dry, cracked lips. HEAD: Normocephalic. Decayed dentition. EYES: No scleral icterus. No injection or drainage. CARDIOVASCULAR: Regular rate and rhythm without murmurs. RESPIRATORY: Breath sounds equal bilaterally. No accessory muscle use. GASTROINTESTINAL: Abdomen non distended, non tender. MUSCULOSKELETAL: No cyanosis, calf tenderness, and no edema. BACK: Nontender without obvious deformity. <Steffany Miller N - 05/08/18 11:19> Assessment and Plan - Assessment (1) Bacteremia due to methicillin susceptible Staphylococcus aureus (MSSA) Code(s): R78.81 - Bacteremia Status: Acute (2) Polysubstance abuse Code(s): F19.10 - Other psychoactive substance abuse, uncomplicated Status: Acute (3) Suicidal ideation Code(s): R45.851 - Suicidal ideations Status: Acute (4) Nutrition, metabolism, and development symptoms Code(s): R63.8 - Other symptoms and signs concerning food and fluid intake Status: Acute (5) DVT prophylaxis Status: Acute <Andres Martinez - 05/08/18 15:30> (1) Bacteremia due to methicillin susceptible Staphylococcus aureus (MSSA) Code(s): R78.81 - Bacteremia Status: Acute Plan: Hx of endocarditis and not completing tx Staph A 05/03 cx, gram + cocci 05/05 blood cx shows no growth No vegetation noted on echo Infectious disease on board * S/p vancomycin 500 mg IV every 24h (05/03-05/06 * Ancef 2000 mg every 8 hours Day 5 (05/04-) DC fluids today Discuss plan for transitioning to PO abx w/ID, as pt is medically stable at this time and may be transferred to psych inpt (2) Polysubstance abuse Code(s): F19.10 - Other psychoactive substance abuse, uncomplicated Status: Acute Plan: Undergoing withdrawal from various substances since admission, is medically stable at this time and outside window of alcohol withdrawal at this time Avoid restraints, likely not necessary at this time Continue Seroquel 25 mg BID yesterday Continue Ativan as needed for agitation Plan to transfer over to med psych after Id recs for today (3) Suicidal ideation Code(s): R45.851 - Suicidal ideations Status: Acute Plan: -Patient currently Zuñiga acted -Psych consulted, see above (4) Nutrition, metabolism, and development symptoms Code(s): R63.8 - Other symptoms and signs concerning food and fluid intake Status: Acute Plan: Fluids: PO Electrolytes: Monitor and replace as needed Nutrition: Diabetic diet (patient reports being diabetic, no A1c on record) (5) DVT prophylaxis Status: Acute Plan: Lovenox 40 milligrams subcu <Steffany Miller - 05/08/18 11:08> - Assessment and Plan 42-year-old female with a past medical history of polysubstance abuse, endocarditis presents Via Zuñiga act for polysubstance withdrawal. Patient was found to be septic on admission and is bacteremic with gram-positive cocci on blood culture. Patient currently on Vanc and Rocephin. ID consulted for endocarditis workup. 2D echo pending. CIWA protocol. <Steffany Miller - 05/08/18 10:33> Discharge Planning: pending ID recs, transfer over to [facility] <Steffany Miller 05/08/18 11:19> - Attending Attestation Patient case discussed with resident physicians I have independently examined the patient I have read the above note and agree with the assessment and plan as discussed with me I was involved in all medical decision making for this patient Andres Martinez MD <Andres Martinez - 05/08/18 15:30>
--- NOTE | 2018-05-08 14:26 | P.PNPSY ---
Subjective Remarks: The patient was seen today for psychiatric reevaluation. The patient continues to be restrained in upper extremities. But, she is calm her, more cooperative, able to verbalize that she wants to go home. She reports that she feels much better, she denies suicidal and homicidal ideation, denies visual and auditory hallucinations. Patient does not remember the reason she is in the hospital. She does admit that she has been using "a lot of drugs". No attention deficit, no fluctuation of consciousness at this moment. Eye movements irritable, verbally hostile, but redirectable. Mental Status Examination Appearance: Dirty, Disheveled Consciousness: Lethargic Orientation: x4 Motor Activity: Abnormal gait Speech: Rapid, Incoherent Language: Adequate Fund of Knowledge: Poor Attention and Concentration: Inadequate Memory: Unremarkable Mood: Angry Affect: Irritable Thought Process & Associations: Loose associations Thought Content: Bizarre thinking, Racing thoughts Hallucination Type: None (n/a) Delusion Type: None Suicidal Ideation: No Suicidal Plan: No Suicidal Intention: No Homicidal Ideation: No Homicidal Plan: No Homicidal Intention: No Insight: Fair Judgment: Impulsive Assessment and Plan - Assessment (1) Adjustment disorder with withdrawal Code(s): F43.29 - Adjustment disorder with other symptoms Status: Acute - Plan Plan: The patient shows irritability, verbal hostility, but is able to report okay mood, denies depression, denies anxiety, denies suicidal and homicidal ideation , denies visual and auditory hallucinations. She is oriented x3. Patient does not meet criteria for involuntary psychiatric admission at the moment. Continue current psychotropic regimen. Continue medical treatment as needed. I will follow-up Justification for Continued Inpatient Stay: No involuntary admission indicated
--- NOTE | 2018-05-08 15:20 | P.PNID ---
Subjective Remarks: Patient is a 42-year-old female, brought into the hospital under [place] act initiated by PD. She has history of polysubstance abuse and apparently was running out of medications to use and afraid that she is going to go into withdrawals. 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 At that time she had evidence of multiple embolization to different organs including the brain, as well as evidence of septic arthritis. She stabilized, and was discharged to get IV antibiotics in the outpatient infusion clinic but apparently has not been compliant and was using her PICC line for her drugs. She was readmitted to the hospital and plan at that time was for her to complete her treatment in house. Patient however signed out AMA. Since then she has had multiple ED visits with different complaints. There was an ED visit on February 28 and at that time she had fever and chills as her complaints. She had 2 blood cultures done at that time and they grew MSSA. She really has not had any treatment for that MSSA bacteremia. She has had other admissions but has signed out AMA. On this admission patient is afebrile. Her white count is elevated. 2 blood cultures done yesterday are now reported as growing gram-positive cocci. She has been known to use IV Dilaudid, heroin, cocaine, and meth. She is not hypoxic. There is been no report of any fever or chills at home. She has not been complaining of any respiratory GI or any urinary complaints. Infectious disease consultation has been requested to assist with evaluation and treatment of this patient with history of endocarditis, and polysubstance abuse. Notes reviewed D/W RN Temps ok More awake, has episodes of agitation, screaming when she wants attention Currently very calm and cooperative States her knees and hip hurt Has wrist restraints Getting seroquel All BC with MSSA 05/03, 05/04 TTE no vegetation seen Her TTE from September with vegetation seen in MV She had MSSA from BC last Feb 2018, not treated Previous GAS MV IE last September-October,, not clear if she completed her Rx due to multiple AMA Antibiotics: Ancef Lines: PIV Past Medical History: CVA (cerebral vascular accident) Endocarditis Hepatitis C IV drug abuse Laceration of kidney Hx of hand surgery Allergies/Adverse Reactions: Allergies No Known Allergies Allergy (Verified 12/15/18 09:02) Objective Vital Signs 05/07/18 15:46 05/07/18 16:00 05/07/18 17:00 Temperature Pulse Rate 128 H 129 H 124 H Respiratory Rate 24 27 H 25 H Blood Pressure 155/96 H 162/98 H Pulse Oximetry 05/07/18 17:05 05/07/18 18:00 05/07/18 20:00 Temperature 97.9 F Pulse Rate 122 H 120 H 109 H Respiratory Rate 22 19 Blood Pressure 168/87 H 166/99 H Pulse Oximetry 100 05/07/18 20:33 05/07/18 20:35 05/07/18 21:00 Temperature Pulse Rate 109 H 110 H 110 H Respiratory Rate 18 18 18 Blood Pressure 153/94 H 168/98 H Pulse Oximetry 100 100 99 05/07/18 22:00 05/07/18 22:05 05/07/18 23:00 Temperature Pulse Rate 118 H 119 H 111 H Respiratory Rate 21 22 19 Blood Pressure 166/97 H 169/94 H 159/93 H Pulse Oximetry 100 100 100 05/08/18 00:00 05/08/18 01:00 05/08/18 02:00 Temperature 98.2 F Pulse Rate 110 H 105 H 104 H Respiratory Rate 20 18 18 Blood Pressure 140/83 162/94 H 147/93 H Pulse Oximetry 100 100 100 05/08/18 03:00 05/08/18 04:00 05/08/18 06:00 Temperature 98.1 F Pulse Rate 102 H 104 H 111 H Respiratory Rate 18 18 Blood Pressure 168/88 H 150/88 H Pulse Oximetry 100 100 05/08/18 07:00 05/08/18 08:00 05/08/18 08:25 Temperature 98.3 F Pulse Rate 97 H 106 H 100 H Respiratory Rate 16 16 15 Blood Pressure 134/85 Pulse Oximetry 100 99 100 05/08/18 09:00 05/08/18 10:00 05/08/18 10:01 Temperature Pulse Rate 109 H 101 H 100 H Respiratory Rate 17 14 14 Blood Pressure 125/74 140/84 Pulse Oximetry 100 100 100 05/08/18 11:00 05/08/18 12:00 Temperature Pulse Rate 104 H 109 H Respiratory Rate 18 20 Blood Pressure 133/83 122/73 Pulse Oximetry 100 100 Intake & Output 05/07/18 05/08/18 05/08/18 18:59 06:59 18:59 Intake Total 1905 / 1905 290 / 290 1200 / 1200 Output Total 1600 / 1600 1200 / 1200 Balance 305 / 305 -910 / -910 1200 / 1200 Weight 39.6 kg Intake: IV 1055 / 1055 90 / 90 1200 / 1200 NS + KCl 40 mEq Inj 1,000 ML @ 1000 / 1000 1200 / 1200 100 mls/hr IV.CONT .Q10H RENU Rx #:[id number] Ancef 2 GM Premix Inj 2 gm In 55 / 55 90 / 90 50 ml @ 100 mls/hr IV.SIG Q8H RENU Rx#:[id number] Oral 850 / 850 200 / 200 Output: Urine 1600 / 1600 1200 / 1200 Other: Date of Last Bowel Movement 05/07/18 05/07/18 05/07/18 # Bowel Movements 1 05/07/18 03:00 Blood - Peripheral Aerobic Blood Culture - Preliminary No growth in 1 day 05/07/18 03:00 Blood - Peripheral Anaerobic Blood Culture - Preliminary No growth in 1 day 05/06/18 12:07 Blood - Peripheral Aerobic Blood Culture - Preliminary No growth in 2 days 05/06/18 12:07 Blood - Peripheral Anaerobic Blood Culture - Preliminary No growth in 2 days 05/05/18 07:57 Blood - Peripheral Aerobic Blood Culture - Preliminary No growth in 3 days 05/05/18 07:57 Blood - Peripheral Anaerobic Blood Culture - Preliminary No growth in 3 days 05/04/18 12:19 Blood - Peripheral Aerobic Blood Culture - Final Staphylococcus aureus 05/04/18 12:19 Blood - Peripheral Anaerobic Blood Culture - Preliminary No growth in 4 days 05/04/18 12:24 Blood - Peripheral Aerobic Blood Culture - Final Staphylococcus aureus 05/04/18 12:24 Blood - Peripheral Anaerobic Blood Culture - Final Staphylococcus aureus 05/03/18 10:05 Blood - Peripheral Aerobic Blood Culture - Final Staphylococcus aureus 05/03/18 10:05 Blood - Peripheral Anaerobic Blood Culture - Final Staphylococcus aureus Lab - Hematology Results 05/08/18 08:24 WBC 7.6 RBC 4.06 Hgb 8.1 L Hct 26.2 L MCV 64.5 L MCH 19.9 L MCHC 30.9 L RDW 17.2 Plt Count 327 MPV 7.2 Neut % (Auto) 81.7 H Lymph % (Auto) 10.7 [place] % (Auto) 5.9 Eos % (Auto) 1.0 Baso % (Auto) 0.7 Neut # (Auto) 6.3 Lymph # (Auto) 0.8 L [place] # (Auto) 0.4 Eos # (Auto) 0.1 Baso # (Auto) 0.1 WBC Differential . Differential Comment Auto diff final Lab - Chemistry Results 05/07/18 05/07/18 05/07/18 03:00 18:00 22:15 POC Glucose 92 102 Random Glucose 79 05/08/18 03:47 POC Glucose 155 H Random Glucose Imaging: ITS Impressions Chest X-Ray 05/03/18 09:05 CONCLUSION: Negative examination. Physical Exam: GENERAL: Patient is a cachectic, well-developed female, awake and alert, NAD SKIN: Cool and dry. No generalized rash. Poor turgor. Has track recinos in UE. HEAD: Atraumatic. Normocephalic. No temporal wasting, or tenderness. EYES: No petechia or hemorrhage. Pupils equal, dilated, round and reactive to light. No scleral icterus. No injection or drainage. EARS, NOSE AND THROAT: Nose without bleeding or purulent nasal discharge. Unable to examine oropharynx NECK: Trachea midline. Supple and not tender, no meningeal signs CARDIOVASCULAR: Regular rate and rhythm. No murmurs, rubs or gallops heard RESPIRATORY: Clear to auscultation. Breath sounds equal bilaterally. No rales , wheezing or rhonchi ABDOMEN: Soft, flat, non-tender, nondistended. Bowel sounds present and normoactive. Has LN both groin EXTREMITIES: No clubbing, cyanosis, or edema. No joint effusion. No calf tenderness. No embolic lesions. Moving extremities NEUROLOGICAL: Grossly non-focal PSYCHIATRIC: Calm and cooperative currently LINE: No evidence of infection Assessment and Plan - Plan Impression Hx Strep MV IE, not sure if she completed Rx last summer Now with MSSA bacteremia and likely new IE due to continued IVDU - TTE negative - very suspicious that this is IE, she had MSSA last February and again today 05/03 and 05/04 Polysubstance abuse - heroin, cocaine, dilaudid, meth Cachexia Recommendation Continue IV Ancef ?Pursue ANNA - but unlikely a good surgical candidate due to her active IVDU and her poor medical compliance - it will not chnage medical Rx Repeat BC to document clearing Follow temps Follow C/S Monitor progress Plan 6 weeks IV Abx from date of last (+) BC Very difficult Rx plan on this patient due to her poor compliance and frequent AMA D/W RN
--- NOTE | 2018-05-08 15:42 | P.DS ---
Date of admission: 05/03/18 11:46 Primary care physician: UNKNOWN Brief History from admission: 42-year-old female presenting to the emergency department Via [employer] act. She has a known polysubstance abuser and apparently has been using methamphetamines heavily recently, she has run out of methamphetamines and appears to be having withdrawals. Upon initiation in the emergency department, she made comments expressing intention to harm herself. She endorses polysubstance abuse recently including heroin, methamphetamines, cocaine, and Dilaudid. She states that over the last several days she has not slept very much due to her drug use and feels dehydrated. In the emergency department, she was treated with Ativan for agitation and is currently heavily sedated. DS: Diagnosis - Discharge Diagnosis (1) Bacteremia due to methicillin susceptible Staphylococcus aureus (MSSA) Status: Acute (2) Polysubstance abuse Status: Acute (3) Suicidal ideation Status: Acute DS: Summary Hospital Course: 42-year-old female with a past medical history of polysubstance abuse, endocarditis presents Via [employer] act for polysubstance withdrawal. Patient was found to be septic on admission and is bacteremic with gram-positive cocci on blood culture, later found to be Staph +. At first, was started on Rocephin and Vanc. ID consulted for endocarditis workup. Patient was treated for bacteremia and likely endocarditis and abx coverage was adjusted to Vanc and Ancef, which was later modified to IV Ancef only for more narrow coverage. 2D echo showed no vegetation. CIWA protocol initiated since it was suspected that patient was withdrawing for multiple substances. Psych was consulted, but due to the patient being medically unstable (elevated BP, HR, RR, and significant lethargy), it was decided to transfer her to [facility] when she was more optimized. Patient became more agitated in the following days, so seroquel BID and Ativan was added to control agitation. Patient required restraints for several days after attempting to leave the bed while in an altered state. By , patient showed significant improvement in alertness and vitals stabilized. The Zu[place]iga Act was then lifted by psychiatry. It was planned for her to receive 6 weeks of IV abx treatment but patient left AMA the next day. She was educated on risks and benefits of leaving and advised follow-up care. - Time Spent with Patient Total time spent providing and/or coordinating discharge services: Greater than 30 minutes Exam Vital signs: Vital Signs 05/07/18 15:46 05/07/18 16:00 05/07/18 17:00 Temperature Pulse Rate 128 H 129 H 124 H Respiratory Rate 24 27 H 25 H Blood Pressure 155/96 H 162/98 H Pulse Oximetry 05/07/18 17:05 05/07/18 18:00 05/07/18 20:00 Temperature 97.9 F Pulse Rate 122 H 120 H 109 H Respiratory Rate 22 19 Blood Pressure 168/87 H 166/99 H Pulse Oximetry 100 05/07/18 20:33 05/07/18 20:35 05/07/18 21:00 Temperature Pulse Rate 109 H 110 H 110 H Respiratory Rate 18 18 18 Blood Pressure 153/94 H 168/98 H Pulse Oximetry 100 100 99 05/07/18 22:00 05/07/18 22:05 05/07/18 23:00 Temperature Pulse Rate 118 H 119 H 111 H Respiratory Rate 21 22 19 Blood Pressure 166/97 H 169/94 H 159/93 H Pulse Oximetry 100 100 100 05/08/18 00:00 05/08/18 01:00 05/08/18 02:00 Temperature 98.2 F Pulse Rate 110 H 105 H 104 H Respiratory Rate 20 18 18 Blood Pressure 140/83 162/94 H 147/93 H Pulse Oximetry 100 100 100 05/08/18 03:00 05/08/18 04:00 05/08/18 06:00 Temperature 98.1 F Pulse Rate 102 H 104 H 111 H Respiratory Rate 18 18 Blood Pressure 168/88 H 150/88 H Pulse Oximetry 100 100 05/08/18 07:00 05/08/18 08:00 05/08/18 08:25 Temperature 98.3 F Pulse Rate 97 H 106 H 100 H Respiratory Rate 16 16 15 Blood Pressure 134/85 Pulse Oximetry 100 99 100 05/08/18 09:00 05/08/18 10:00 05/08/18 10:01 Temperature Pulse Rate 109 H 101 H 100 H Respiratory Rate 17 14 14 Blood Pressure 125/74 140/84 Pulse Oximetry 100 100 100 05/08/18 11:00 05/08/18 12:00 Temperature Pulse Rate 104 H 109 H Respiratory Rate 18 20 Blood Pressure 133/83 122/73 Pulse Oximetry 100 100 Intake & Output 05/07/18 05/08/18 05/08/18 18:59 06:59 18:59 Intake Total 1905 / 1905 290 / 290 1200 / 1200 Output Total 1600 / 1600 1200 / 1200 Balance 305 / 305 -910 / -910 1200 / 1200 Weight 39.6 kg Intake: IV 1055 / 1055 90 / 90 1200 / 1200 NS + KCl 40 mEq Inj 1,000 ML @ 1000 / 1000 1200 / 1200 100 mls/hr IV.CONT .Q10H RENU Rx #:[id number] Ancef 2 GM Premix Inj 2 gm In 55 / 55 90 / 90 50 ml @ 100 mls/hr IV.SIG Q8H RENU Rx#:[id number] Oral 850 / 850 200 / 200 Output: Urine 1600 / 1600 1200 / 1200 Other: Date of Last Bowel Movement 05/07/18 05/07/18 05/07/18 # Bowel Movements 1 Narrative: Last EXAM 05/08 GENERAL: Pale, cachectic appearing female, calmly laying in bed, more conversant and alert compared to yesterday. Answers questions, in restraints. SKIN: Patient has dry, cracked lips. HEAD: Normocephalic. Decayed dentition. EYES: No scleral icterus. No injection or drainage. CARDIOVASCULAR: Regular rate and rhythm without murmurs. RESPIRATORY: Breath sounds equal bilaterally. No accessory muscle use. GASTROINTESTINAL: Abdomen non distended, non tender. MUSCULOSKELETAL: No cyanosis, calf tenderness, and no edema. BACK: Nontender without obvious deformity. Results Procedures completed during hospitalization: N/A Labs on day of discharge: Labs from last 24 hours 05/08/18 05/08/18 05/07/18 08:24 03:47 22:15 WBC 7.6 RBC 4.06 Hgb 8.1 L Hct 26.2 L MCV 64.5 L MCH 19.9 L MCHC 30.9 L RDW 17.2 Plt Count 327 MPV 7.2 Neut % (Auto) 81.7 H Lymph % (Auto) 10.7 Glenn % (Auto) 5.9 Eos % (Auto) 1.0 Baso % (Auto) 0.7 Neut # (Auto) 6.3 Lymph # (Auto) 0.8 L Glenn # (Auto) 0.4 Eos # (Auto) 0.1 Baso # (Auto) 0.1 WBC Differential . Differential Comment Auto diff final POC Glucose 155 H 102 Ur Buprenorphine Ur Heroin Screen Urine Oxycodone Ur Methadone U Hydromorphone Confirm Urine Fentanyl Urine Gabapentin Ur Phencyclidine (PCP) Ur MDMA & Metabolites 05/07/18 05/04/18 18:00 15:00 WBC RBC Hgb Hct MCV MCH MCHC RDW Plt Count MPV Neut % (Auto) Lymph % (Auto) Glenn % (Auto) Eos % (Auto) Baso % (Auto) Neut # (Auto) Lymph # (Auto) Glenn # (Auto) Eos # (Auto) Baso # (Auto) WBC Differential Differential Comment POC Glucose 92 Ur Buprenorphine Negative Ur Heroin Screen Negative Urine Oxycodone Negative Ur Methadone Negative U Hydromorphone Confirm Negative Urine Fentanyl Positive A Urine Gabapentin Negative Ur Phencyclidine (PCP) Negative Ur MDMA & Metabolites Negative Preliminary micro results at discharge 05/07/18 03:00 Aerobic Blood Culture - Preliminary Blood - Peripheral No growth in 1 day Anaerobic Blood Culture - Preliminary No growth in 1 day 05/06/18 12:07 Aerobic Blood Culture - Preliminary Blood - Peripheral No growth in 2 days Anaerobic Blood Culture - Preliminary No growth in 2 days 05/05/18 07:57 Aerobic Blood Culture - Preliminary Blood - Peripheral No growth in 3 days Anaerobic Blood Culture - Preliminary No growth in 3 days 05/04/18 12:19 Anaerobic Blood Culture - Preliminary Blood - Peripheral No growth in 4 days - Impressions ITS Impressions Chest X-Ray 05/03/18 09:05 CONCLUSION: Negative examination. Discharge Plan - Discharge Disposition Patient Disposition: 07 Against Medical Advice - Discharge Condition Condition: Stable - Discharge Order Discharge Orders: AMA Discharge (Routine); Ordered 05/09/18 Ordered By: Steffany Godinez R2 - Discharge Details Anticipated Discharge Date: 05/08/18 - Physicians Team Primary Care Provider: UNKNOWN, Attending Provider: Andres Martinez Other Providers: Earnest Harry DO ; Kassandra Javier MD ; Javier Pérez MD
[2018-05-08] MEDS: Enoxaparin Inj 40 MG/0.4 ML Syringe SQ SCH (15:58)
[2018-05-08] MEDS ORDERED: Ketorolac Inj 30 MG/ML (IVP) Vial IV.PUSH PRN (16:06)
[2018-05-08] MEDS ORDERED: Naloxone Inj 0.4 MG/ML Vial IV.PUSH PRN (16:06)
[2018-05-08] MEDS: Acetaminophen 325 MG Tablet PO PRN (22:14)
[2018-05-08] MEDS: Ketorolac Inj 30 MG/ML (IVP) Vial IV.PUSH PRN (22:15)
[2018-05-08] MEDS: LORazepam 1 MG Tablet PO PRN (22:15)
[2018-05-09] MEDS: Acetaminophen 325 MG Tablet PO PRN (04:25)
[2018-05-09] MEDS: Ketorolac Inj 30 MG/ML (IVP) Vial IV.PUSH PRN (04:26)
[2018-05-09] MEDS: ceFAZolin 2 GM Premix Inj 2 GM/50 ML PIGGYBACK IV.SIG SCH (05:10)
[2018-05-09 05:45] LABS: Baso % (Auto) 0.5 % (0.0-2.0); Eos # (Auto) 0.1 th/mm3 (0.0-0.4); Eos % (Auto) 1.7 % (0.0-4.0); Hematocrit 23.5 % (35.0-46.0); Hemoglobin 7.5 gm/dL (11.6-15.3); Lymph # (Auto) 0.9 th/mm3 (1.0-4.8); Lymph % (Auto) 14.5 % (9.0-44.0); Mean Corpuscular HGB Conc 32.1 % (32.0-36.0); Mean Corpuscular Hemoglobin 20.1 pg (27.0-34.0); Mean Corpuscular Volume 62.6 fL (80.0-100.0); Mean Platelet Volume 6.9 fL (7.0-11.0); Mono # (Auto) 0.4 th/mm3 (0.0-0.9); Mono % (Auto) 6.2 % (0.0-8.0); Neut # (Auto) 4.8 th/mm3 (1.8-7.7); Neut % (Auto) 77.1 % (16.0-70.0); Platelet Count 374 th/mm3 (150-450); Red Blood Count 3.75 mil/mm3 (4.00-5.30); Red Cell Distribution Width 17.6 % (11.6-17.2); White Blood Count 6.2 th/mm3 (4.0-11.0)
[2018-05-09] MEDS: QUEtiapine 25 MG Tablet PO SCH ×2 (06:38→07:00)
[2018-05-09 07:11] VITALS: BP 138/75; PULSE 95; RESP 18; TEMP 97.6; O2SAT 99
--- NOTE | 2018-05-09 07:19 | P.AMA ---
AMA Note - Diagnosis (1) Bacteremia due to methicillin susceptible Staphylococcus aureus (MSSA) (2) Polysubstance abuse (3) Suicidal ideation Recommended Treatment Course: IV antibiotic treatment for 6 weeks for bacteremia and possible endocarditis AMA Statement: Patient Ana Laura Webster has decided to leave the hospital against medical advice. This patient has the capacity to refuse care and understands the risks of leaving, including permanent disability and/or , and has had an opportunity to ask questions about his/her condition. The patient has been informed that he/she may return for care at any time, and follow up has been advised. Discharge Disposition: Against Medical Advice Patient Condition on Discharge: Stable
== END 2018-05-09 08:27 | disposition left against medical advice (07) ==
LOC: NEPD 08:43 → NEDA 11:46 → HIMC 18:45 → N05 05-09 05:48
PROVIDERS: ADMIT Family Medicine; ATTEND Family Medicine

== ENCOUNTER 2018-05-10 17:22 | Inpatient (IN) ==
--- NOTE | 2018-05-10 19:20 | ED ---
HPI General Chief Complaint: Extremity Injury, Lower Stated Complaint: leg pain Time Seen by Provider: 05/10/18 18:24 Source: patient Mode of arrival: ambulatory Limitations: no limitations History of Present Illness HPI Narrative: 42-year-old female patient with history of polysubstance abuse, heroin abuse, was admitted for possible endocarditis to get 6 weeks of IV antibiotics, but left AGAINST MEDICAL ADVICE yesterday, presents to the ER states that she is now having more pain in her right hip and her sciatica is acting up. She states that the right hip feels like it is clicking. She denies any current fevers or any other issues. Pain is currently rated 10 out of 10 she states that she feels a clicking every time she tries to move. She is having difficulty walking because of the pain. However, states this is been going on for some time, did not to start today. She denies injuries. Modifying Factors: None Associated Signs & Symptoms: Right hip pain, right lower back pain, sciatica Risk Factors: Polysubstance abuse, heroin abuse Related Data Home Medications Medication Instructions Recorded Confirmed No Known Home Medications 12/18/17 05/10/18 Allergies Allergy/AdvReac Type Severity Reaction Status Date / Time No Known Allergies Allergy Verified 05/10/18 18:14 Review of Systems ROS: all other systems reviewed are negative [facility] Medical History Medical History CVA (cerebral vascular accident) (Acute) Endocarditis (Acute) Hepatitis C (Acute) IV drug abuse (Acute) Laceration of kidney (Acute) Surgical History Surgical History Hx of hand surgery (Acute) Social History Social History Substance History: Active Abuse Second Hand Smoke Exposure: Yes Smoking Status: Current every day smoker Tobacco Type: Cigarettes How Often Do You Have a Drink Containing Alcohol: 2 to 4 times a month Recent Travel in [facility] within the Last 8 Weeks: No Recent Out of Country Travel within the Last 8 Weeks: No Immunization History Tetanus Immunization: Unsure Exam Narrative Exam Narrative: GENERAL: Well-developed thin middle-age female patient currently in moderate distress. Awake and oriented x3. SKIN: Focused skin assessment warm/dry. HEAD: Atraumatic. Normocephalic. EYES: Pupils equal and round. No scleral icterus. No injection or drainage. ENT: No nasal bleeding or discharge. Mucous membranes pink and moist. NECK: Trachea midline. No JVD. CARDIOVASCULAR: Regular rate and rhythm. No murmur appreciated. RESPIRATORY: No accessory muscle use. Clear to auscultation. Breath sounds equal bilaterally. GASTROINTESTINAL: Abdomen soft, non-tender, nondistended. Hepatic and splenic margins not palpable. MUSCULOSKELETAL: No obvious deformities. No clubbing. No cyanosis. No edema. Pain with ranging of the right hip. No palpable deformities. NEUROLOGICAL: Awake and alert. No obvious cranial nerve deficits. Motor grossly within normal limits. Normal speech. PSYCHIATRIC: Appropriate mood and affect; insight and judgment normal. Course Initial Documented Vital Signs Temperature 97.4 F L 05/10/18 17:36 Pulse Rate 115 H 05/10/18 17:36 Respiratory Rate 14 05/10/18 17:36 Blood Pressure 112/71 05/10/18 17:36 Pulse Oximetry 100 05/10/18 17:36 Last Documented Vital Signs Temperature 97.4 F L 05/10/18 17:36 Pulse Rate 115 H 05/10/18 17:36 Respiratory Rate 14 05/10/18 17:36 Blood Pressure 112/71 05/10/18 17:36 Pulse Oximetry 100 05/10/18 17:36 Medical Decision Making MDM Narrative Medical decision making narrative: Patient had just signed out AMA yesterday from the hospital. Her x-ray showing signs of significant disease of the right hip, likely osteomyelitis. At this point, case is discussed with Dr. Florentino Benedict and she states that this will involve extensive workup including IR drainage to evaluate for organism involved, and likely will need further orthopedic surgery. At this point, case is discussed with family practice resident service for readmission. Medical Screen Exam Complete: Yes Emergency Medical Condition: Yes Differential Diagnosis Differential Diagnosis: Septic arthritis versus sciatica versus malingering Lab Data Result diagrams: 05/10/18 20:21 05/10/18 20:21 Imaging Data Attestation: I personally reviewed and interpreted this imaging study as follows : Radiologist's impression: Hip X-Ray 05/10/18 19:16 CONCLUSION: Evidence of acute fracture involving the right acetabulum with superior migration of the right femoral head and deformity involving the superolateral aspect of the femoral head raising possibility of osteonecrosis or possible osteomyelitis. Significant arthritic changes and joint space narrowing have developed within the superior lateral aspect of the right hip. The entire process has demonstrated a fairly rapid development as previous films of the right hip in February 2018 demonstrated none of these findings. Discharge Plan Discharge Disposition Patient Disposition: ED Admit(ED Internal Use Only) Discharge Condition Condition: Stable Discharge Order Discharge Orders: ED Use Only Admit Order (Routine); Ordered 05/10/18 Ordered By: Britney Wolf Discharge Details Anticipated Discharge Date: 05/10/18 Diagnosis: Hip osteomyelitis, right Physicians Team ED Provider: Britney Wolf Primary Care Provider: Primary Care Ambika Leal Attending Provider: Andres Martinez Status ED Status: Admitted Patient
--- NOTE | 2018-05-10 20:11 | XR ---
EXAM DATE: 05/10/2018 7:59 PM EST AGE/SEX: 42 years / Female INDICATIONS: Right hip pain and limited ability to walk worsening over the past few days. CLINICAL DATA: This is the patient's initial encounter. Patient reports that signs and symptoms have been present for 3 days and indicates a pain score of 10/10. MEDICAL/SURGICAL HISTORY: . Pericarditis. Endocarditis. Transient ischemic attack. Cerebrovascu lar accident. None. COMPARISON: [facility], FEMUR RIGHT 2V, 02/24/2018. . FINDINGS: There is evidence of acute fracture involving the right acetabulum with superior migration of the rig ht femoral head and deformity involving the superolateral aspect of the femoral head raising possibil ity of osteonecrosis or possible osteomyelitis. Significant arthritic changes and joint space narrowi ng have developed within the superior lateral aspect of the right hip. The entire process has demonst rated a fairly rapid development as previous films of the right hip in February 2018 demonstrated none of these findings. CONCLUSION: Evidence of acute fracture involving the right acetabulum with superior migration of the right femora l head and deformity involving the superolateral aspect of the femoral head raising possibility of os teonecrosis or possible osteomyelitis. Significant arthritic changes and joint space narrowing have d eveloped within the superior lateral aspect of the right hip. The entire process has demonstrated a f airly rapid development as previous films of the right hip in February 2018 demonstrated none of these findings. Electronically signed by: Ethan Salas MD Board Certified Radiologist 05/10/2018 8:09 PM EST
[2018-05-10] MEDS ORDERED: Vancomycin Inj 1,000 MG in Sodium Chlor 0.9% Inj 250 ML IV.SIG ONE (20:33)
[2018-05-10 20:59] LABS: Alanine Aminotransferase 12 U/L (10-53)
[2018-05-10 21:01] LABS: Baso # (Auto) 0.2 th/mm3 (0.0-0.2); Eos % (Auto) 0.1 % (0.0-4.0); Hemoglobin 7.8 gm/dL (11.6-15.3); Lymph # (Auto) 1.7 th/mm3 (1.0-4.8); Lymph % (Auto) 9.5 % (9.0-44.0); Mean Corpuscular HGB Conc 31.1 % (32.0-36.0); Mean Corpuscular Hemoglobin 19.8 pg (27.0-34.0); Mean Corpuscular Volume 63.7 fL (80.0-100.0); Mean Platelet Volume 7.6 fL (7.0-11.0); Mono # (Auto) 0.9 th/mm3 (0.0-0.9); Mono % (Auto) 4.8 % (0.0-8.0); Neut # (Auto) 15.3 th/mm3 (1.8-7.7); Neut % (Auto) 84.6 % (16.0-70.0); Platelet Count 541 th/mm3 (150-450); Red Blood Count 3.93 mil/mm3 (4.00-5.30); Red Cell Distribution Width 17.2 % (11.6-17.2)
[2018-05-10 21:02] LABS: Alkaline Phosphatase 113 U/L (45-117); Total Protein 8.1 g/dL (6.4-8.2)
[2018-05-10 21:06] LABS: Albumin 1.9 g/dL (3.4-5.0); Anion Gap 11 meq/L (5-15); Aspartate Aminotransferase 34 U/L (15-37); Blood Urea Nitrogen 36 mg/dL (7-18); Calcium 8.8 mg/dL (8.5-10.1); Carbon Dioxide 27.7 meq/L (21.0-32.0); Chloride 94 meq/L (98-107); Glomerular Filtration Rate 47 mL/min (>89); Glucose,Random 97 mg/dL (74-106); Magnesium 2.1 mg/dL (1.5-2.5); Potassium 3.6 meq/L (3.5-5.1); Sodium 133 meq/L (136-145)
[2018-05-10] MEDS ORDERED: Naloxone Inj 0.4 MG/ML Vial IV.PUSH PRN (21:06)
[2018-05-10] MEDS ORDERED: Acetaminophen 325 MG Tablet PO PRN (21:06)
[2018-05-10] MEDS ORDERED: Bisacodyl 10 MG Supp RECTAL PRN (21:06)
--- NOTE | 2018-05-10 21:10 | P.HPFP ---
History of Present Illness Primary Care Physician: No Primary Care Physician <Andres Martinez - 05/11/18 15:03> No Primary Care Physician <Areli Brenda Jacobson Dru - 05/10/18 21:10> Chief Complaint: my hip hurts <Anakindra Brenda Jacobson - 05/10/18 21:26> History of Present Illness: Patient evaluated on morning medical rounds with resident team. She continues to complain of severe right hip pain that is worse with any type of movement or weightbearing. She states that the hip pain has been going on for approximately 1 month but has become significantly worse over the last week. She no longer is able to ambulate without the assistance of a walker. She does endorse occasional chills and subjective fevers associated with this pain. She denies chest pain, denies palpitations, denies shortness of breath, denies nausea or vomiting. She is a known IV drug user with frequent hospitalizations for complications from her IV drug use and initiation for treatment of bacterial endocarditis on several occasions, frequently leaving AMA without adequate treatment. She was most recently hospitalized from 05/03/18 through 05/09/18 where she was being treated for bacteremia and endocarditis with MSSA verified on blood cultures. She was taking Ancef but left AMA on the morning of 05/09/18. She states that since she left the hospital, she has only snorted $5 worth of heroin but has not taken anything through the IV or injections. <Andres Martinez - 05/11/18 15:03> 41-year-old female who presents to the emergency department with severe right hip pain. The patient was just hospitalized and left AMA yesterday ( ) after being treated for bacteremia and likely endocarditis. She reports that she did not understand the seriousness of her condition or the plan of care, so she left when her Zuñiga act was lifted. She was supposed to receive 6 weeks of IV antibiotic therapy. Patient reports that she came back to the ED because her right hip keeps "popping" whenever she moves it. She has been using a walker to ambulate for the past month due to the hip pain. She is an IV drug user. She reports the last time that she used was 4 PM yesterday. She used $5 worth of heroin. She did have a subjective fever and night sweats last night. She denies headache, chest pain, shortness of breath, abdominal pain, lower extremity edema. Past medical history: Diabetes Hepatitis C endocarditis Past surgical history: Hand surgery Medications: None Allergies: Patient reports she is allergic to an antibiotic that starts with the letter "d" but this is not reported in our EMR Family history: Mother with hypertension and diabetes Social history: Patient's drugs of choice are heroin,prescription opiate pills, crack, methamphetamine. She has a home currently but reports that she will be kicked out of this home soon. Patient does smoke cigarettes <Brenda Busch 05/10/18 22:17> - Diagnosis (1) Hip osteomyelitis, right (2) Sepsis (3) ANDRZEJ (acute kidney injury) (4) Polysubstance abuse (5) Diabetes (6) History of bacterial endocarditis (7) Nutrition, metabolism, and development symptoms (8) DVT prophylaxis <Andres Martinez 05/11/18 15:03> (1) Hip osteomyelitis, right (2) Sepsis (3) ANDRZEJ (acute kidney injury) (4) Polysubstance abuse (5) Diabetes (6) History of bacterial endocarditis (7) Nutrition, metabolism, and development symptoms (8) DVT prophylaxis <Brenda Busch 05/10/18 22:19> Inpatient Certification: I certify that the inpatient services were ordered in accordance with Medicare regulations governing the order. This includes certification that hospital inpatient services are reasonable and necessary and in the case of services not specified as inpatient-only under 42 CFR 419.22(n), that they are appropriately provided as inpatient services in accordance to with the 2-midnight benchmark under 43 CFR 412.3(e) <Andres Martinez 05/11/18 15:03> I certify that the inpatient services were ordered in accordance with Medicare regulations governing the order. This includes certification that hospital inpatient services are reasonable and necessary and in the case of services not specified as inpatient-only under 42 CFR 419.22(n), that they are appropriately provided as inpatient services in accordance to with the 2-midnight benchmark under 43 CFR 412.3(e) <Brenda Busch 05/10/18 21:10> Review of Systems All other systems reviewed negative except as stated in HPI <Brenda Busch - 05/10/18 21:53> PMFSH - History History Provided By: Patient <Brenda Busch - 05/10/18 21:10> - Medical History Medical History: Medical History (Last Reviewed 05/10/18 @ 19:22 by Britney Wolf MD) CVA (cerebral vascular accident) Endocarditis Hepatitis C IV drug abuse Laceration of kidney <Andres Martinez - 05/11/18 15:03> Medical History (Last Reviewed 05/10/18 @ 19:22 by Britney Wolf MD) CVA (cerebral vascular accident) Endocarditis Hepatitis C IV drug abuse Laceration of kidney <Brenda Busch - 05/10/18 21:10> - Surgical History Surgical History: Surgical History (Last Reviewed 05/10/18 @ 19:22 by Britney Wolf MD) Hx of hand surgery <Andres Martinez - 05/11/18 15:03> Surgical History (Last Reviewed 05/10/18 @ 19:22 by Britney Wolf MD) Hx of hand surgery <Brenda Busch - 05/10/18 21:10> - Family History Family History: Family History (Last Reviewed 05/04/18 @ 09:46 by Kassandra Javier MD) Other Family history unknown <Andres Martinez - 05/11/18 15:03> Family History (Last Reviewed 05/04/18 @ 09:46 by Kassandra Javier MD) Other Family history unknown <Brenda Busch - 05/10/18 21:10> - Social History I have reviewed the patient's Social History: Yes <Brenda Busch - 21:53> - Tobacco History Second Hand Smoke Exposure: Yes <Brenda Busch - 05/10/18 21:10> Tobacco Use In Past 30 Days: Yes <Brenda Busch - 05/10/18 21:10> Smoking Status: Current every day smoker <Brenda Busch - 05/10/18 21: 10> Tobacco Type: Cigarettes <Brenda Busch - 05/10/18 21:10> - Alcohol History How Often Do You Have a Drink Containing Alcohol: 2 to 4 times a month < Brenda Busch - 05/10/18 21:10> - Substance Use History Substance History: Active Abuse <Brenda Busch - 05/10/18 21:10> - Travel History Recent Travel in the [place] Within the Last 8 Weeks: No <Brenda Busch - 05/10/18 21:10> Recent Travel Out of the Country Within the Last 8 Weeks: No <Brenda Busch - 05/10/18 21:10> - Immunization History Tetanus Immunization: Unsure <Brenda Busch - 05/10/18 21:10> Medications and Allergies Allergies Allergy/AdvReac Type Severity Reaction Status Date / Time No Known Allergies Allergy Verified 05/10/18 18:14 <Andres Martinez 05/11/18 15:03> Home Medications Medication Instructions Recorded Confirmed Type No Known Home Medications 12/18/17 05/10/18 History <Andres Martinez 05/11/18 15:03> Active Medications: Active Medications Acetaminophen (Tylenol) 650 mg PO Q4H PRN PRN Reason: Temp > 100.4 Al Hydroxide/Mg Hydroxide (Milk Of Magnesia Liq) 30 ml PO Q12H PRN PRN Reason: Mild Constipation Bisacodyl (Dulcolax Supp) 10 mg RECTAL DAILY PRN PRN Reason: SEVERE CONSITIPATION Dextrose (D50w Vial) 50 ml IV.PUSH UNSCH PRN PRN Reason: PER HYPOGLYCEMIA PROTOCOL Flumazenil (Romazecon Inj) 0.2 mg IV.PUSH Q1M PRN PRN Reason: OVERSEDATION Glucagon (Glucagon Inj) 1 mg OTHER PRN PRN PRN Reason: for Hypoglycemia Protocol Haloperidol Lactate (Haldol Inj) 1 mg IV.PUSH Q15M PRN PRN Reason: for severe agitation Heparin Sodium (Porcine) (Heparin Inj) 5,000 units SQ Q12H RENU Last Admin: 05/11/18 08:49 Dose: 5,000 units Hydromorphone HCl (Dilaudid) 1 mg PO Q4H PRN PRN Reason: BREAKTHROUGH PAIN Sodium Chloride (Ns Inj) 1,000 mls @ 80 mls/hr IV.CONT .[id number] [facility] Last Admin: 05/11/18 12:53 Dose: 80 mls/hr Cefepime HCl 2,000 mg/ Sodium (Chloride) 100 mls @ 200 mls/hr IV.SIG Q8H RENU Last Infusion: 05/11/18 06:43 Dose: Infused Vancomycin HCl 750 mg/ Sodium (Chloride) 257.5 mls @ 250 mls/hr IV.SIG Q12H [facility] Last Infusion: 05/11/18 14:15 Dose: Infused Insulin Human Regular (Novolin R [employer] Sugar Inj) 0 units SQ ACHS AND 3AM RENU; Protocol Last Admin: 05/11/18 12:45 Dose: Not Given Lactulose (Lactulose Liq) 30 ml PO DAILY PRN PRN Reason: SEVERE CONSITIPATION Methadone HCl (Dolophine) 10 mg PO Q12H [facility] Last Admin: 05/11/18 12:45 Dose: 10 mg Methadone HCl (Dolophine) 10 mg PO Q12H PRN PRN Reason: severe agitation/anxiety/pain Last Admin: 05/11/18 14:37 Dose: 10 mg Miscellaneous Information ([facility] Ordered Lab Info) 0 each OTHER ONCE ONE Stop: 05/13/18 10:46 Naloxone HCl (Narcan Inj) 0.4 mg IV.PUSH UNSCH PRN PRN Reason: SEE LABEL COMMENTS Ondansetron HCl (Zofran Inj) 4 mg IV.PUSH Q6H PRN PRN Reason: NAUSEA OR VOMITING Last Admin: 05/10/18 22:12 Dose: 4 mg Pharmacy Profile Note (Vancomycin Consult Pharmacy) 1 each OTHER UNSCH PRN PRN Reason: Pharmacy to dose Senna/Docusate Sodium (Silvia-Colace) 1 tab PO BID [facility] Last Admin: 05/11/18 08:49 Dose: 1 tab Sennosides (Senokot) 17.2 mg PO Q12H PRN PRN Reason: Moderate Constipation Sodium Chloride (Ns Flush) 2 ml IV.FLUSH PRN PRN PRN Reason: FLUSH AFTER USING IV ACCESS Sodium Chloride (Ns Flush) 2 ml IV.FLUSH BID [facility] Last Admin: 05/11/18 08:47 Dose: 2 ml Zolpidem Tartrate (Ambien) 5 mg PO HS PRN PRN Reason: INSOMNIA Last Admin: 05/11/18 02:25 Dose: 5 mg <Andres Martinez - 05/11/18 15:03> Active Medications Vancomycin HCl 1,000 mg/ (Sodium Chloride) 250 mls @ 250 mls/hr IV.SIG ONCE ONE Stop: 05/10/18 21:32 Last Admin: 05/10/18 20:52 Dose: 250 mls/hr <Brenda Busch A - 05/10/18 21:10> Exam Vital signs: Vital Signs 05/10/18 17:36 05/10/18 20:00 05/11/18 00:00 Temperature 97.4 F L Pulse Rate 115 H 108 H 84 Respiratory Rate 14 16 14 Blood Pressure 112/71 112/74 Pulse Oximetry 100 98 98 05/11/18 04:00 05/11/18 08:00 05/11/18 12:00 Temperature 97.6 F 98.4 F 97.7 F Pulse Rate 100 H 105 H 84 Respiratory Rate 17 12 12 Blood Pressure 108/61 142/94 H 108/67 Pulse Oximetry 98 97 98 Intake & Output 05/10/18 05/11/18 05/11/18 18:59 06:59 18:59 Intake Total 570 / 570 1154.5 / 1154.5 Balance 570 / 570 1154.5 / 1154.5 Weight 43.091 kg 43 kg Intake: IV 450 / 450 1154.5 / 1154.5 NS Inj 1,000 ML @ 80 mls/hr IV. 897 / 897 CONT .[id number] RENU Rx#:[id number] Maxipime Inj 2,000 MG In NS Inj 200 / 200 100 ML @ 200 mls/hr IV.SIG Q8H RENU Rx#:[id number] Vancomycin Inj 1,000 MG In NS 250 / 250 Inj 250 ML @ 250 mls/hr IV.SIG ONCE ONE Rx#:[id number] Vancomycin Inj 750 MG In NS Inj 257.5 / 257.5 250 ML @ 250 mls/hr IV.SIG Q12H RENU Rx#:[id number] Oral 120 / 120 Other: # Voids 3 Date of Last Bowel Movement 12/22/18 # Bowel Movements 0 Weight On Admission 43.091 kg <Andres Martinez - 05/11/18 15:03> Vital Signs 05/10/18 17:36 Temperature 97.4 F L Pulse Rate 115 H Respiratory Rate 14 Blood Pressure 112/71 Pulse Oximetry 100 Intake & Output 05/10/18 05/10/18 05/11/18 06:59 18:59 06:59 Weight 43.091 kg <Brenda Busch A - 05/10/18 21:10> Narrative: General: Frail, cachectic appearing female somewhat disheveled lying in bed in moderate distress HEENT: Normocephalic, pupils equal, round, reactive to light with moist mucous membranes CV: Regular rate and rhythm with 1/6 systolic murmur Pulmonary: Clear to auscultation bilaterally MSK: Right hip painful with any type of movement including log roll or flexion. Limited range of motion secondary to pain. Sensation appears to be intact in the entire leg. There is no obvious swelling, erythema, or edema. <Andres Martinez - 05/11/18 15:03> - Constitutional moderate distress (when moving patient for exam), cachectic, disheveled < Areli Jacobson,Brenda A - 05/10/18 21:19> - Routine HEENT Exam Head: Present: normocephalic, atraumatic <Anae Indira,Brenda A - 05/10/18 21: 19> Eye: Absent: conjunctival icterus <Dessavre Indira,Brenda A - 05/10/18 21:53> ENT: Absent: dentition normal <Dessavre R1,Brenda A - 05/10/18 21:53> - Routine Respiratory Exam Present: CTA bilaterally. Absent: accessory muscle use <Dessavre R1,Brenda A - 05/10/18 21:53> - Routine Cardiovascular Exam Present: RRR, S1, S2. Absent: murmur <Dessavre R1,Brenda A - 05/10/18 21:53> - Routine Abdominal Exam Present: soft. Absent: tenderness <Dessavre R1,Brenda A - 05/10/18 21:53> - Routine Extremities Exam Comments: Right hip markedly tender, surrounding discoloration of the overlying skin, decreased range of motion due to severe pain <Brenda Busch - 05/10/18 21:53> - Routine Skin Exam Comments: Multiple track recinos bilaterally on the upper extremities <Brenda Busch - 05/10/18 21:53> - Routine Neurological Exam Present: alert, oriented X3 <Brenda Busch - 05/10/18 21:53> Results - Labs Result diagrams: 05/11/18 05:15 05/11/18 05:15 <Andres Martinez - 05/11/18 15:03> Abnormal lab results 05/10/18 05/10/18 05/10/18 Range/Units 20:10 20:21 20:21 WBC 18.0 H (4.0-11.0) th/mm3 RBC 3.93 L (4.00-5.30) mil/mm3 Hgb 7.8 L (11.6-15.3) gm/dL Hct 25.0 L (35.0-46.0) % MCV 63.7 L (80.0-100.0) fL MCH 19.8 L (27.0-34.0) pg MCHC 31.1 L (32.0-36.0) % RDW (11.6-17.2) % Plt Count 541 H D (150-450) th/mm3 Neut % (Auto) 84.6 H (16.0-70.0) % Neut # (Auto) 15.3 H (1.8-7.7) th/mm3 ESR (0-20) mm/hr Sodium 133 L (136-145) meq/L Chloride 94 L (98-107) meq/L BUN 36 H (7-18) mg/dL Creatinine 1.26 H (0.50-1.00) mg/dL Estimated GFR 47 L (>89) mL/min Lactic Acid (0.4-2.0) mmol/L Calcium (8.5-10.1) mg/dL C-Reactive Protein (0.00-0.30) mg/dL Albumin 1.9 L (3.4-5.0) g/dL Urine Clarity Cloudy H (Clear) Urine Protein 100 H (Neg-Trace) mg/dL Ur Leukocyte Esterase Trace H (Negative) Urine WBC 27 H (0-5) /hpf Urine Mucus Few H (Occasional) /lpf Urine Opiates Screen (Neg) Urine Cocaine Screen (Neg) 05/10/18 05/10/18 05/10/18 Range/Units 20:21 20:21 20:50 WBC (4.0-11.0) th/mm3 RBC (4.00-5.30) mil/mm3 Hgb (11.6-15.3) gm/dL Hct (35.0-46.0) % MCV (80.0-100.0) fL MCH (27.0-34.0) pg MCHC (32.0-36.0) % RDW (11.6-17.2) % Plt Count (150-450) th/mm3 Neut % (Auto) (16.0-70.0) % Neut # (Auto) (1.8-7.7) th/mm3 ESR Greater than 140 H (0-20) mm/hr Sodium (136-145) meq/L Chloride (98-107) meq/L BUN (7-18) mg/dL Creatinine (0.50-1.00) mg/dL Estimated GFR (>89) mL/min Lactic Acid 2.3 H (0.4-2.0) mmol/L Calcium (8.5-10.1) mg/dL C-Reactive Protein 13.40 H (0.00-0.30) mg/dL Albumin (3.4-5.0) g/dL Urine Clarity (Clear) Urine Protein (Neg-Trace) mg/dL Ur Leukocyte Esterase (Negative) Urine WBC (0-5) /hpf Urine Mucus (Occasional) /lpf Urine Opiates Screen (Neg) Urine Cocaine Screen (Neg) 05/11/18 05/11/18 05/11/18 Range/Units 05:15 05:15 11:30 WBC (4.0-11.0) th/mm3 RBC 3.48 L (4.00-5.30) mil/mm3 Hgb 7.1 L (11.6-15.3) gm/dL Hct 21.8 L (35.0-46.0) % MCV 62.7 L (80.0-100.0) fL MCH 20.4 L (27.0-34.0) pg MCHC (32.0-36.0) % RDW 17.4 H (11.6-17.2) % Plt Count (150-450) th/mm3 Neut % (Auto) 73.7 H (16.0-70.0) % Neut # (Auto) (1.8-7.7) th/mm3 ESR (0-20) mm/hr Sodium (136-145) meq/L Chloride (98-107) meq/L BUN 32 H (7-18) mg/dL Creatinine (0.50-1.00) mg/dL Estimated GFR (>89) mL/min Lactic Acid (0.4-2.0) mmol/L Calcium 8.1 L (8.5-10.1) mg/dL C-Reactive Protein (0.00-0.30) mg/dL Albumin 1.6 L (3.4-5.0) g/dL Urine Clarity (Clear) Urine Protein (Neg-Trace) mg/dL Ur Leukocyte Esterase (Negative) Urine WBC (0-5) /hpf Urine Mucus (Occasional) /lpf Urine Opiates Screen Pos H (Neg) Urine Cocaine Screen Pos H (Neg) Short CBC 05/10/18 05/11/18 Range/Units 20:21 05:15 WBC 18.0 H 10.3 (4.0-11.0) th/mm3 Hgb 7.8 L 7.1 L (11.6-15.3) gm/dL Hct 25.0 L 21.8 L (35.0-46.0) % Plt Count 541 H D 222 D (150-450) th/mm3 BMP 05/10/18 05/11/18 20:21 05:15 Sodium 133 L 136 Potassium 3.6 3.6 Chloride 94 L 100 Carbon Dioxide 27.7 24.4 BUN 36 H 32 H Creatinine 1.26 H 0.66 Calcium 8.8 8.1 L Liver Function 05/10/18 05/11/18 Range/Units 20:21 05:15 Total Bilirubin 0.3 0.2 (0.2-1.0) mg/dL AST 34 29 (15-37) U/L ALT 12 10 (10-53) U/L Alkaline Phosphatase 113 88 (45-117) U/L Albumin 1.9 L 1.6 L (3.4-5.0) g/dL Urine 12/22/18 Range/Units 20:10 Urine Color Yellow (Yellw/Straw) Urine Clarity Cloudy H (Clear) Urine pH 5.0 (5.0-8.5) Ur Specific [place] 1.020 (1.002-1.035) Urine Protein 100 H (Neg-Trace) mg/dL Urine Glucose (UA) Negative (Negative) mg/dL <Andres Martinez - 05/11/18 15:03> Abnormal lab results 05/10/18 05/10/18 Range/Units 20:21 20:21 WBC 18.0 H (4.0-11.0) th/mm3 RBC 3.93 L (4.00-5.30) mil/mm3 Hgb 7.8 L (11.6-15.3) gm/dL Hct 25.0 L (35.0-46.0) % MCV 63.7 L (80.0-100.0) fL MCH 19.8 L (27.0-34.0) pg MCHC 31.1 L (32.0-36.0) % Plt Count 541 H D (150-450) th/mm3 Neut % (Auto) 84.6 H (16.0-70.0) % Neut # (Auto) 15.3 H (1.8-7.7) th/mm3 Sodium 133 L (136-145) meq/L Chloride 94 L (98-107) meq/L BUN 36 H (7-18) mg/dL Creatinine 1.26 H (0.50-1.00) mg/dL Estimated GFR 47 L (>89) mL/min Albumin 1.9 L (3.4-5.0) g/dL Short CBC 05/10/18 Range/Units 20:21 WBC 18.0 H (4.0-11.0) th/mm3 Hgb 7.8 L (11.6-15.3) gm/dL Hct 25.0 L (35.0-46.0) % Plt Count 541 H D (150-450) th/mm3 BMP 05/10/18 20:21 Sodium 133 L Potassium 3.6 Chloride 94 L Carbon Dioxide 27.7 BUN 36 H Creatinine 1.26 H Calcium 8.8 Liver Function 05/10/18 Range/Units 20:21 Total Bilirubin 0.3 (0.2-1.0) mg/dL AST 34 (15-37) U/L ALT 12 (10-53) U/L Alkaline Phosphatase 113 (45-117) U/L Albumin 1.9 L (3.4-5.0) g/dL <Brenda Busch - 05/10/18 21:10> - Imaging Impressions Hip X-Ray 05/10/18 19:16 CONCLUSION: Evidence of acute fracture involving the right acetabulum with superior migration of the right femoral head and deformity involving the superolateral aspect of the femoral head raising possibility of osteonecrosis or possible osteomyelitis. Significant arthritic changes and joint space narrowing have developed within the superior lateral aspect of the right hip. The entire process has demonstrated a fairly rapid development as previous films of the right hip in February 2018 demonstrated none of these findings. <JuanAndres - 05/11/18 15:03> Impressions Hip X-Ray 05/10/18 19:16 CONCLUSION: Evidence of acute fracture involving the right acetabulum with superior migration of the right femoral head and deformity involving the superolateral aspect of the femoral head raising possibility of osteonecrosis or possible osteomyelitis. Significant arthritic changes and joint space narrowing have developed within the superior lateral aspect of the right hip. The entire process has demonstrated a fairly rapid development as previous films of the right hip in February 2018 demonstrated none of these findings. <Brenda Busch - 05/10/18 21:10> Caprini VTE Risk Assessment Caprini VTE Risk Assessment: No/Low Risk (score <= 1) <Brenda Busch - 05/10/18 21:19> Caprini Risk Assessment Model: Point Value = 1 Point Value = 2 Point Value = 3 Point Value = 5 Age 41-60 Minor surgery BMI > 25 kg/m2 Swollen legs Varicose veins or History of unexplained or recurrent spontaneous Oral contraceptives or hormone replacement Sepsis (< 1 month) Serious lung disease, including pneumonia (< 1 month) Abnormal pulmonary function Acute myocardial infarction Congestive heart failure (< 1 month) History of inflammatory bowel disease Medical patient at bed rest Age 61-74 Arthroscopic surgery Major open surgery (> 45 min) Laparoscopic surgery (> 45 min) Malignancy Confined to bed (> 72 hours) Immobilizing plaster cast Central venous access Age >= 75 History of VTE Family history of VTE Factor V Leiden Prothrombin [id number] Lupus anticoagulant Anticardiolipin antibodies Elevated serum homocysteine Heparin-induced thrombocytopenia Other congenital or acquired thrombophilia Stroke (< 1 month) Elective arthroplasty Hip, pelvis, or leg fracture Acute spinal cord injury (< 1 month) <Andres Martinez - 05/11/18 15:03> Point Value = 1 Point Value = 2 Point Value = 3 Point Value = 5 Age 41-60 Minor surgery BMI > 25 kg/m2 Swollen legs Varicose veins or History of unexplained or recurrent spontaneous Oral contraceptives or hormone replacement Sepsis (< 1 month) Serious lung disease, including pneumonia (< 1 month) Abnormal pulmonary function Acute myocardial infarction Congestive heart failure (< 1 month) History of inflammatory bowel disease Medical patient at bed rest Age 61-74 Arthroscopic surgery Major open surgery (> 45 min) Laparoscopic surgery (> 45 min) Malignancy Confined to bed (> 72 hours) Immobilizing plaster cast Central venous access Age >= 75 History of VTE Family history of VTE Factor V Leiden Prothrombin [id number] Lupus anticoagulant Anticardiolipin antibodies Elevated serum homocysteine Heparin-induced thrombocytopenia Other congenital or acquired thrombophilia Stroke (< 1 month) Elective arthroplasty Hip, pelvis, or leg fracture Acute spinal cord injury (< 1 month) <Brenda Busch - 05/10/18 21:19> Prophylaxis Regimen: Total Risk Factor Score Risk Level Prophylaxis Regimen 0-1 Low Early ambulation 2 Moderate Order ONE of the following: *Sequential Compression Device (SCD) *Heparin 5000 units SQ BID 3-4 Higher Order ONE of the following medications: *Heparin 5000 units SQ TID *Enoxaparin/Lovenox 40 mg SQ daily (WT < 150 kg, CrCl > 30 mL/min) *Enoxaparin/Lovenox 30 mg SQ daily (WT < 150 kg, CrCl > 10-29 mL/min) *Enoxaparin/Lovenox 30 mg SQ BID (WT < 150 kg, CrCl > 30 mL/min) AND/OR *Sequential Compression Device (SCD) 5 or more Highest Order ONE of the following medications: *Heparin 5000 units SQ TID (Preferred with Epidurals) *Enoxaparin/Lovenox 40 mg SQ daily (WT < 150 kg, CrCl > 30 mL/min) *Enoxaparin/Lovenox 30 mg SQ daily (WT < 150 kg, CrCl > 10-29 mL/min) *Enoxaparin/Lovenox 30 mg SQ BID (WT < 150 kg, CrCl > 30 mL/min) AND *Sequential Compression Device (SCD) <Andres Martinez - 05/11/18 15:03> Total Risk Factor Score Risk Level Prophylaxis Regimen 0-1 Low Early ambulation 2 Moderate Order ONE of the following: *Sequential Compression Device (SCD) *Heparin 5000 units SQ BID 3-4 Higher Order ONE of the following medications: *Heparin 5000 units SQ TID *Enoxaparin/Lovenox 40 mg SQ daily (WT < 150 kg, CrCl > 30 mL/min) *Enoxaparin/Lovenox 30 mg SQ daily (WT < 150 kg, CrCl > 10-29 mL/min) *Enoxaparin/Lovenox 30 mg SQ BID (WT < 150 kg, CrCl > 30 mL/min) AND/OR *Sequential Compression Device (SCD) 5 or more Highest Order ONE of the following medications: *Heparin 5000 units SQ TID (Preferred with Epidurals) *Enoxaparin/Lovenox 40 mg SQ daily (WT < 150 kg, CrCl > 30 mL/min) *Enoxaparin/Lovenox 30 mg SQ daily (WT < 150 kg, CrCl > 10-29 mL/min) *Enoxaparin/Lovenox 30 mg SQ BID (WT < 150 kg, CrCl > 30 mL/min) AND *Sequential Compression Device (SCD) <Brenda Busch - 05/10/18 21:10> Assessment and Plan - Assessment (1) Hip osteomyelitis, right Code(s): M86.9 - Osteomyelitis, unspecified Status: Acute Plan: Orthopedic consultation has been placed for further evaluation of breakdown of the hip due to osteomyelitis versus osteonecrosis IV antibiotics: Vancomycin Cefepime CT of the hip with interventional radiology to perform aspiration biopsy of the hip -Patient is a very poor surgical candidate due to her active IV drug use and bacteremia Blood cultures ordered and pending ESR elevated at greater than 140 CRP elevated at 13.4 Infectious disease consult placed Physical therapy to evaluate patient Hip x-ray: Evidence of acute fracture involving the right acetabulum with superior migration of the right femoral head and deformity involving the superolateral aspect of the femoral head raising possibility of osteonecrosis or possible osteomyelitis. Significant arthritic changes and joint space narrowing have developed within the superior lateral aspect of the right hip. The entire process is demonstrated a fairly rapid development as previous films of the right hip in February 2018 demonstrate none of these findings (2) Sepsis Code(s): A41.9 - Sepsis, unspecified organism Status: Acute Plan: Treatment plan as per osteomyelitis (3) ANDRZEJ (acute kidney injury) Code(s): N17.9 - Acute kidney failure, unspecified Status: Acute Plan: Resolved overnight with IV fluid hydration, creatinine currently 0.66 with a BUN of 32 and GFR greater than 89 -Monitor renal function while on vancomycin (4) Polysubstance abuse Code(s): F19.10 - Other psychoactive substance abuse, uncomplicated Status: Acute Plan: Patient with known IV drug use, recently using heroin and other opiates -Toxicology screen positive for opiates and cocaine Placed on methadone 10 mg every 12 hours scheduled -Methadone 10 mg every 12 hours as needed for agitation -Hydromorphone 1 mg every 4 hours as needed for breakthrough pain -Haldol 1 mg as needed for severe agitation (5) Diabetes Code(s): E11.9 - Type 2 diabetes mellitus without complications Status: Acute (6) History of bacterial endocarditis Code(s): Z86.79 - Personal history of other diseases of the circulatory system Status: Acute Plan: Blood cultures ordered and pending Infectious disease consulted -Recent blood cultures positive for MSSA on 05/03 and 05/04 with clear blood cultures from 05/05 and 05/06 while on Ancef. Patient left the hospital AMA without adequate treatment (7) Nutrition, metabolism, and development symptoms Code(s): R63.8 - Other symptoms and signs concerning food and fluid intake Status: Acute Plan: Add Ensure supplementation with meals (8) DVT prophylaxis Status: Acute <Andres Martinez - 05/11/18 15:03> (1) Hip osteomyelitis, right Code(s): M86.9 - Osteomyelitis, unspecified Status: Acute Plan: Patient with right hip osteomyelitis versus osteonecrosis based on hip x-ray. She is septic. I extensively discussed with the patient the importance of staying for her medical treatment and stressed the seriousness of her current state. -Blood cultures -Urine culture -ESR -CRP -Ortho consult with Dr. Mcclure who is aware of patient. She reports that this will involve extensive workup including IR drainage to evaluate for specific organism. It is likely that she will need orthopedic surgery. -IR consult -Consider infectious disease consult -Empiric antibiotics at this time with vancomycin and cefepime. Await cultures from IR drainage. (2) Sepsis Code(s): A41.9 - Sepsis, unspecified organism Status: Acute Plan: Patient has a leukocytosis with white blood cell count of 18. Heart rate is 115. -See plan for osteomyelitis (3) ANDRZEJ (acute kidney injury) Code(s): N17.9 - Acute kidney failure, unspecified Status: Acute Plan: Patient's creatinine on was 0.51. On admission today her creatinine is 1.26. -Avoid nephrotoxic medications -Renally dose vancomycin, pharmacy is consulted -Continue to hydrate with maintenance fluids (4) Polysubstance abuse Code(s): F19.10 - Other psychoactive substance abuse, uncomplicated Status: Acute Plan: Patient is not actively withdrawing at this time. -[facility] protocol -Avoid opiates (5) Diabetes Code(s): E11.9 - Type 2 diabetes mellitus without complications Status: Acute Plan: -Low-dose sliding scale insulin (6) History of bacterial endocarditis Code(s): Z86.79 - Personal history of other diseases of the circulatory system Status: Acute Plan: Patient had a transthoracic echocardiogram on May 05, 2018. There was mild aortic valve regurgitation. There is no note of vegetations. Patient also had a transthoracic echocardiogram on September 25, 2017 where mitral valve vegetation was noted. Patient reported that she had never been adequately treated for this. She left AMA during treatment. -May consider infectious disease consult (7) Nutrition, metabolism, and development symptoms Code(s): R63.8 - Other symptoms and signs concerning food and fluid intake Status: Acute Plan: -Fluids: Normal saline at 80 mils per hour -Electrolytes: Monitor and replace as needed -Nutrition: N.p.o. at midnight in anticipation of ortho surgery. (8) DVT prophylaxis Status: Acute Plan: -Hold DVT pharmacological prophylaxis in light of possible surgery tomorrow. -Bilateral SCDs <Areli JacobsonBrenda A - 05/10/18 22:19>
[2018-05-10 21:11] LABS: Clarity,Urine Cloudy (Clear); Glucose,Urine (UA) Negative (Negative); Hyaline Casts,Urine 13 /lpf (0-3); Leukocyte Esterase,Urine Trace (Negative); Mucus,Urine Few /lpf (Occasional); Nitrite,Urine Negative (Negative); Squamous Epithelial Cell,Urine 42 /hpf (0-5)
[2018-05-10] MEDS ORDERED: Vancomycin Consult Pharmacy OTHER PRN (21:11)
[2018-05-10 21:13] LABS: Color,Urine Yellow (Yellw/Straw)
[2018-05-10 21:14] LABS: Bilirubin,Urine Negative (Negative); Ictotest,Urine Negative (Negative)
[2018-05-10] MEDS ORDERED: LORazepam 1 MG Tablet PO PRN (21:36)
[2018-05-10] MEDS ORDERED: Haloperidol Inj 5 MG/ML Ampul IV.PUSH PRN (21:36)
[2018-05-10] MEDS ORDERED: Dextrose 50% in Water 50 ML Vial IV.PUSH PRN (22:07)
[2018-05-10] MEDS: Morphine Inj 4 MG/ML Vial IV.PUSH PRN (22:12)
[2018-05-10] MEDS: Heparin - SQ 10,000 UNITS/ML Vial SQ SCH (23:12)
[2018-05-10] MEDS: Sod Chloride 0.9% Inj 1,000 ML IV.CONT SCH (23:13)
[2018-05-11] MEDS: Morphine Inj 4 MG/ML Vial IV.PUSH PRN ×3 (02:24→10:17)
[2018-05-11] MEDS: Zolpidem Tartrate 5 MG Tablet PO PRN ×2 (02:25→23:12)
[2018-05-11] MEDS: Insulin NovoLIN Regular Correctional Sugar Inj SQ SCH ×5 (04:13→20:53)
[2018-05-11 05:58] LABS: Baso # (Auto) 0.1 th/mm3 (0.0-0.2); Eos # (Auto) 0.1 th/mm3 (0.0-0.4); Eos % (Auto) 1.4 % (0.0-4.0); Hematocrit 21.8 % (35.0-46.0); Hemoglobin 7.1 gm/dL (11.6-15.3); Lymph # (Auto) 1.8 th/mm3 (1.0-4.8); Mean Corpuscular HGB Conc 32.6 % (32.0-36.0); Mean Corpuscular Hemoglobin 20.4 pg (27.0-34.0); Mean Corpuscular Volume 62.7 fL (80.0-100.0); Mean Platelet Volume 7.2 fL (7.0-11.0); Mono # (Auto) 0.7 th/mm3 (0.0-0.9); Mono % (Auto) 6.9 % (0.0-8.0); Neut # (Auto) 7.6 th/mm3 (1.8-7.7); Neut % (Auto) 73.7 % (16.0-70.0); Platelet Count 222 th/mm3 (150-450); Red Blood Count 3.48 mil/mm3 (4.00-5.30); Red Cell Distribution Width 17.4 % (11.6-17.2); White Blood Count 10.3 th/mm3 (4.0-11.0)
[2018-05-11 06:13] LABS: Albumin 1.6 g/dL (3.4-5.0); Anion Gap 12 meq/L (5-15); Aspartate Aminotransferase 29 U/L (15-37); Blood Urea Nitrogen 32 mg/dL (7-18); Calcium 8.1 mg/dL (8.5-10.1); Carbon Dioxide 24.4 meq/L (21.0-32.0); Chloride 100 meq/L (98-107); Glomerular Filtration Rate Greater Than 89 mL/min (>89); Glucose,Random 82 mg/dL (74-106); Potassium 3.6 meq/L (3.5-5.1); Sodium 136 meq/L (136-145)
[2018-05-11 06:14] LABS: Alanine Aminotransferase 10 U/L (10-53)
[2018-05-11 06:16] LABS: Alkaline Phosphatase 88 U/L (45-117); Total Protein 6.9 g/dL (6.4-8.2)
--- NOTE | 2018-05-11 08:26 | P.CONOP ---
[facility] Orthopedics Consult Note - [facility] Consult date: 05/11/18 Consult reason: joint pain, fracture, other Chief complaint: rt hip osteomyelitis Narrative: 41-year-old female who presents to the emergency department with severe right hip pain. The patient was just hospitalized and left AMA yesterday ( ) after being treated for bacteremia and likely endocarditis. She reports that she did not understand the seriousness of her condition or the plan of care, so she left when her Zuñiga act was lifted. She was supposed to receive 6 weeks of IV antibiotic therapy. Patient reports that she came back to the ED because her right hip keeps "popping" whenever she moves it. She has been using a walker to ambulate for the past month due to the hip pain. She is an IV drug user. She reports the last time that she used was 4 PM yesterday. She used $5 worth of heroin. She did have a subjective fever and night sweats last night. She denies headache, chest pain, shortness of breath, abdominal pain, lower extremity edema. Review of Systems Denies current fevers, chills, nausea, vomiting. Denies chest pain, cough, shortness of breath. Denies abdominal pain or change in urination. Denies back pain, weakness, numbness or tingling. Denies dizziness, blurry vision or throat pain. Reports significant right hip pain PMFSH - History History Provided By: Patient, Medical Record - Medical History Medical History: Medical History (Last Reviewed 05/10/18 @ 19:22 by Britney Wolf MD) CVA (cerebral vascular accident) Endocarditis Hepatitis C IV drug abuse Laceration of kidney - Surgical History Surgical History: Surgical History (Last Reviewed 05/10/18 @ 19:22 by Britney Wolf MD) Hx of hand surgery - Family History Family History: Family History (Last Reviewed 05/04/18 @ 09:46 by Kassandra Javier MD) Other Family history unknown - Tobacco History Second Hand Smoke Exposure: Yes Tobacco Use In Past 30 Days: Yes Smoking Status: Current every day smoker Tobacco Type: Cigarettes - Alcohol History How Often Do You Have a Drink Containing Alcohol: 2 to 4 times a month - Substance Use History Substance History: Active Abuse - Substance Use Type Heroin Status: Active Route Used: Intravenously Last Used: 05/09/18 Reason for Use: Peer Pressure - Travel History Recent Travel in the [place] Within the Last 8 Weeks: No Recent Travel Out of the Country Within the Last 8 Weeks: No - Immunization History Tetanus Immunization: >5 Years Hx Influenza Vaccine This Season: No Medications and Allergies Active Medications: Active Medications Acetaminophen (Tylenol) 650 mg PO Q4H PRN PRN Reason: Temp > 100.4 Al Hydroxide/Mg Hydroxide (Milk Of Magnesia Liq) 30 ml PO Q12H PRN PRN Reason: Mild Constipation Bisacodyl (Dulcolax Supp) 10 mg RECTAL DAILY PRN PRN Reason: SEVERE CONSITIPATION Dextrose (D50w Vial) 50 ml IV.PUSH UNSCH PRN PRN Reason: PER HYPOGLYCEMIA PROTOCOL Flumazenil (Romazecon Inj) 0.2 mg IV.PUSH Q1M PRN PRN Reason: OVERSEDATION Glucagon (Glucagon Inj) 1 mg OTHER PRN PRN PRN Reason: for Hypoglycemia Protocol Haloperidol Lactate (Haldol Inj) 1 mg IV.PUSH Q15M PRN PRN Reason: for severe agitation Heparin Sodium (Porcine) (Heparin Inj) 5,000 units SQ Q12H RENU Last Admin: 05/10/18 23:12 Dose: 5,000 units Sodium Chloride (Ns Inj) 1,000 mls @ 80 mls/hr IV.CONT .[id number] RENU Last Admin: 05/10/18 23:13 Dose: 80 mls/hr Cefepime HCl 2,000 mg/ Sodium (Chloride) 100 mls @ 200 mls/hr IV.SIG Q8H RENU Last Admin: 05/11/18 06:13 Dose: 200 mls/hr Vancomycin HCl 750 mg/ Sodium (Chloride) 257.5 mls @ 250 mls/hr IV.SIG Q24H RENU Insulin Human Regular (Novolin R [employer] Sugar Inj) 0 units SQ ACHS AND 3AM RENU; Protocol Last Admin: 05/11/18 04:13 Dose: Not Given Lactulose (Lactulose Liq) 30 ml PO DAILY PRN PRN Reason: SEVERE CONSITIPATION Lorazepam (Ativan) 1 mg PO Q4H PRN PRN Reason: for CIWA 8-10 Lorazepam (Ativan) 2 mg PO Q2H PRN PRN Reason: for CIWA 11-14 Lorazepam (Ativan Inj) 2 mg IV.PUSH Q2H PRN PRN Reason: for CIWA 11-14 Lorazepam (Ativan Inj) 2 mg IV.PUSH Q1H PRN PRN Reason: for CIWA 15-20 Lorazepam (Ativan Inj) 2 mg IV.PUSH Q15M PRN PRN Reason: for CIWA > 20 Lorazepam (Ativan Inj) 1 mg IV.PUSH Q4H PRN PRN Reason: for CIWA 8-10 Miscellaneous Information ([facility] Ordered Lab Info) 1 each OTHER ONCE ONE Stop: 05/12/18 19:46 Morphine Sulfate (Morphine Inj) 4 mg IV.PUSH Q3H PRN PRN Reason: BREAKTHROUGH PAIN Last Admin: 05/11/18 06:13 Dose: 4 mg Naloxone HCl (Narcan Inj) 0.4 mg IV.PUSH UNSCH PRN PRN Reason: SEE LABEL COMMENTS Ondansetron HCl (Zofran Inj) 4 mg IV.PUSH Q6H PRN PRN Reason: NAUSEA OR VOMITING Last Admin: 05/10/18 22:12 Dose: 4 mg Pharmacy Profile Note (Vancomycin Consult Pharmacy) 1 each OTHER UNSCH PRN PRN Reason: Pharmacy to dose Senna/Docusate Sodium (Silvia-Colace) 1 tab PO BID RENU Sennosides (Senokot) 17.2 mg PO Q12H PRN PRN Reason: Moderate Constipation Sodium Chloride (Ns Flush) 2 ml IV.FLUSH PRN PRN PRN Reason: FLUSH AFTER USING IV ACCESS Sodium Chloride (Ns Flush) 2 ml IV.FLUSH BID RENU Tramadol HCl (Ultram) 50 mg PO Q4H PRN PRN Reason: PAIN SCALE 3 TO 5 Tramadol HCl (Ultram) 100 mg PO Q4H PRN PRN Reason: PAIN SCALE 6 TO 10 Last Admin: 05/11/18 00:39 Dose: 100 mg Zolpidem Tartrate (Ambien) 5 mg PO HS PRN PRN Reason: INSOMNIA Last Admin: 05/11/18 02:25 Dose: 5 mg Allergies Allergy/AdvReac Type Severity Reaction Status Date / Time No Known Allergies Allergy Verified 05/10/18 18:14 Home Medications Medication Instructions Recorded Confirmed Type No Known Home Medications 12/18/17 05/10/18 History Exam Vital signs: Vital Signs 05/10/18 17:36 05/10/18 20:00 05/11/18 00:00 Temperature 97.4 F L Pulse Rate 115 H 108 H 84 Respiratory Rate 14 16 14 Blood Pressure 112/71 112/74 Pulse Oximetry 100 98 98 05/11/18 04:00 05/11/18 08:00 Temperature 97.6 F 98.4 F Pulse Rate 100 H 105 H Respiratory Rate 17 12 Blood Pressure 108/61 142/94 H Pulse Oximetry 98 97 Intake & Output 05/10/18 05/11/18 05/11/18 18:59 06:59 18:59 Intake Total 470 / 470 Balance 470 / 470 Weight 43.091 kg 43 kg Intake: IV 350 / 350 Maxipime Inj 2,000 MG In NS Inj 100 / 100 100 ML @ 200 mls/hr IV.SIG Q8H RENU Rx#:[id number] Vancomycin Inj 1,000 MG In NS 250 / 250 Inj 250 ML @ 250 mls/hr IV.SIG ONCE ONE Rx#:[id number] Oral 120 / 120 Other: # Voids 3 Date of Last Bowel Movement 05/10/18 # Bowel Movements 0 Weight On Admission 43.091 kg Narrative: Awake, alert, no acute distress Normocephalic Pupils equal No JVD Moist mucous membranes Nonlabored respirations Soft nontender abdomen Regular rate Right upper extremity: No tenderness to palpation or visible deformities. Full active range of motion and strength throughout. Sensation intact. Brisk cap refill. Left upper extremity:No tenderness to palpation or visible deformities. Full active range of motion and strength throughout. Sensation intact. Brisk cap refill. Right lower extremity: Positive logroll. Palpable crepitus with range of motion of the right hip. Unable to assess knee and hip range of motion due to pain. Patient is neurovascularly intact distally. Negative Homans. Left lower extremity:No tenderness to palpation or visible deformities. Full active range of motion and strength throughout. Sensation intact. Brisk cap refill. No rash Normal affect Results - Labs Result Diagrams: 05/11/18 05:15 05/11/18 05:15 Labs: Laboratory Results - last 24 hr 05/10/18 05/10/18 05/10/18 20:10 20:21 20:21 WBC 18.0 H RBC 3.93 L Hgb 7.8 L Hct 25.0 L MCV 63.7 L MCH 19.8 L MCHC 31.1 L RDW 17.2 Plt Count 541 H D MPV 7.6 Prelim Diff (Auto) Neut % (Auto) 84.6 H Lymph % (Auto) 9.5 [place] % (Auto) 4.8 Eos % (Auto) 0.1 Baso % (Auto) 1.0 Neut # (Auto) 15.3 H Lymph # (Auto) 1.7 [place] # (Auto) 0.9 Eos # (Auto) 0.0 Baso # (Auto) 0.2 WBC Differential . Diff Scan Differential Comment Auto diff final ESR Hematology Comments Sodium 133 L Potassium 3.6 Chloride 94 L Carbon Dioxide 27.7 Anion Gap 11 BUN 36 H Creatinine 1.26 H Estimated GFR 47 L Random Glucose 97 Lactic Acid Calcium 8.8 Magnesium 2.1 Total Bilirubin 0.3 AST 34 ALT 12 Alkaline Phosphatase 113 C-Reactive Protein Total Protein 8.1 Albumin 1.9 L Urine Color Yellow Urine Clarity Cloudy H Urine pH 5.0 Ur Specific [place] 1.020 Urine Protein 100 H Urine Glucose (UA) Negative Urine Ketones Negative Urine Occult Blood Negative Urine Nitrate Negative Urine Bilirubin Negative Urine Ictotest Negative Urine Urobilinogen Less than 2 Ur Leukocyte Esterase Trace H Urine RBC 3 Urine WBC 27 H Ur Squamous Epith Cells 42 Hyaline Casts 13 Granular Casts 6 Urine Mucus Few H Micro UA Comment Culture indicated Ur Microscopic Review Not Reportable Urine Culture Comments Culture indicated 05/10/18 05/10/18 05/10/18 20:21 20:21 20:50 WBC RBC Hgb Hct MCV MCH MCHC RDW Plt Count MPV Prelim Diff (Auto) Neut % (Auto) Lymph % (Auto) [place] % (Auto) Eos % (Auto) Baso % (Auto) Neut # (Auto) Lymph # (Auto) [place] # (Auto) Eos # (Auto) Baso # (Auto) WBC Differential Diff Scan Differential Comment ESR Greater than 140 H Hematology Comments Sodium Potassium Chloride Carbon Dioxide Anion Gap BUN Creatinine Estimated GFR Random Glucose Lactic Acid 2.3 H Calcium Magnesium Total Bilirubin AST ALT Alkaline Phosphatase C-Reactive Protein 13.40 H Total Protein Albumin Urine Color Urine Clarity Urine pH Ur Specific [place] Urine Protein Urine Glucose (UA) Urine Ketones Urine Occult Blood Urine Nitrate Urine Bilirubin Urine Ictotest Urine Urobilinogen Ur Leukocyte Esterase Urine RBC Urine WBC Ur Squamous Epith Cells Hyaline Casts Granular Casts Urine Mucus Micro UA Comment Ur Microscopic Review Urine Culture Comments 12/23/18 12/23/18 12/23/18 00:50 05:15 05:15 WBC 10.3 RBC 3.48 L Hgb 7.1 L Hct 21.8 L MCV 62.7 L MCH 20.4 L MCHC 32.6 RDW 17.4 H Plt Count 222 D MPV 7.2 Prelim Diff (Auto) Slide review pending Neut % (Auto) 73.7 H Lymph % (Auto) 17.0 [place] % (Auto) 6.9 Eos % (Auto) 1.4 Baso % (Auto) 1.0 Neut # (Auto) 7.6 Lymph # (Auto) 1.8 [place] # (Auto) 0.7 Eos # (Auto) 0.1 Baso # (Auto) 0.1 WBC Differential . Diff Scan Auto diff confirmed Differential Comment . ESR Hematology Comments Sodium 136 Potassium 3.6 Chloride 100 Carbon Dioxide 24.4 Anion Gap 12 BUN 32 H Creatinine 0.66 Estimated GFR Greater than 89 Random Glucose 82 Lactic Acid 1.5 Calcium 8.1 L Magnesium Total Bilirubin 0.2 AST 29 ALT 10 Alkaline Phosphatase 88 C-Reactive Protein Total Protein 6.9 D Albumin 1.6 L Urine Color Urine Clarity Urine pH Ur Specific [place] Urine Protein Urine Glucose (UA) Urine Ketones Urine Occult Blood Urine Nitrate Urine Bilirubin Urine Ictotest Urine Urobilinogen Ur Leukocyte Esterase Urine RBC Urine WBC Ur Squamous Epith Cells Hyaline Casts Granular Casts Urine Mucus Micro UA Comment Ur Microscopic Review Urine Culture Comments - Diagnostic results Imaging: Impressions Hip X-Ray 05/10/18 19:16 CONCLUSION: Evidence of acute fracture involving the right acetabulum with superior migration of the right femoral head and deformity involving the superolateral aspect of the femoral head raising possibility of osteonecrosis or possible osteomyelitis. Significant arthritic changes and joint space narrowing have developed within the superior lateral aspect of the right hip. The entire process has demonstrated a fairly rapid development as previous films of the right hip in February 2018 demonstrated none of these findings. Assessment and Plan - Assessment and Plan 42-year-old IVDU female with significant destructive right hip joint, likely osteomyelitis given history of IV drug use and recent diagnosis of bacteremia and suspected endocarditis. I discussed with the patient the graveness of her hip diagnosis. She has significant destruction within her right hip joint and what appears to be an acute acetabular fracture as a result of the destruction. At this time, I would recommend a CT scan to evaluate for the extent of her osteomyelitis and bony involvement. In addition, I recommended an IR aspiration and biopsy to determine appropriate antibiotic management. I did explain to the patient that she will likely require multiple surgeries in her future including resection of her right hip with placement of antibiotic spacer. I explained to the patient that this is a very complex procedure and could leave her without a fully functioning hip for the rest of her life. She is still currently an IV drug user. This certainly means that she would not be a good candidate for reconstruction down the road should she be able to eradicate infection. I explained to the patient that seriousness of this and that she may never be able to ambulate normally again. At this time, no plan for orthopedic surgery today but likely will require right hip resection with placement of antibiotic spacer in the next couple of days. Will await CT results along with IR aspiration biopsy. Antibiotics per medicine and infectious disease.
[2018-05-11] MEDS: Heparin - SQ 10,000 UNITS/ML Vial SQ SCH ×2 (08:49→20:34)
[2018-05-11] MEDS: Senna/Docusate Sodium 8.6/50 MG Tablet PO SCH ×2 (08:49→20:34)
[2018-05-11] MEDS: Sod Chloride 0.9% Inj 1,000 ML IV.CONT SCH ×3 (09:00→22:15)
[2018-05-11 12:10] LABS: Amphetamine Screen,Urine Neg (Neg); Barbiturate Screen,Urine Neg (Neg); Cannabinoid Screen,Urine Neg (Neg); Cocaine Screen,Urine Pos (Neg)
[2018-05-11] MEDS: Vancomycin Inj 750 MG in Sodium Chlor 0.9% Inj 250 ML IV.SIG SCH ×2 (12:17→23:13)
[2018-05-11 12:21] LABS: Opiate Screen,Urine Pos (Neg)
[2018-05-11] MEDS: Methadone 10 MG Tablet PO SCH ×2 (12:45→23:58)
[2018-05-11] MEDS: Methadone 10 MG Tablet PO PRN (14:37)
--- NOTE | 2018-05-11 17:04 | CT ---
EXAM DATE: 05/11/2018 4:51 PM EST AGE/SEX: 42 years / Female INDICATIONS: Right hip pain. CLINICAL DATA: This is the patient's initial encounter. Patient reports that signs and symptoms have been present for 1 day and indicates a pain score of 7/10. MEDICAL/SURGICAL HISTORY: Hepatitis C. Stroke. None. RADIATION DOSE: 6.33 CTDI (mGy) COMPARISON: [facility] [place] ABDOMEN & PELVIS W CONTRAST, 09/24/2017. . TECHNIQUE: Multiple contiguous axial images were acquired using a multirow detector CT scanner withou t contrast and after intravenous administration of 70 ml Omnipaque 350 (iohexol) nonionic water-solu ble contrast as a single exam dose. Multiplanar reconstruction was performed in the sagittal and cor onal planes. Using automated exposure control and adjustment of the mA and/or kV according to patien t size, radiation dose was kept as low as reasonably achievable to obtain optimal diagnostic quality images. DICOM format image data is available electronically for review and comparison. FINDINGS: Bones: There are extensive erosive and destructive changes involving the right femoral head and acet abulum with associated pathologic fracture of the medial acetabular roof Joints: There is a moderate-sized peripherally enhancing joint effusion of the right hip which fluid extending beyond the medial acetabular border to involve the obturator muscle and extending inferior ly. Soft Tissues: Soft tissue stranding noted throughout the medial superior thigh region. Other: No foreign bodies seen. Post Contrast: No abnormal areas of enhancement are seen in the marrow or soft tissues. CONCLUSION: 1. Findings consistent with advanced right hip septic arthritis. There is advanced destructive [place] of the right femur and acetabulum with associated joint abscess which extends medially and inferio rly through the obturator muscle. There is also associated pathologic fracture of the medial acetabul ar roof. Electronically signed by: Asaf Ureña MD Board Certified Radiologist 05/11/2018 5:02 PM ZAHRA Munson
--- NOTE | 2018-05-11 17:33 | MB ---
cc: Jonn Bryan MD DATE: 05/11/2018 REQUESTING PHYSICIAN: Dr. Godinez. REASON: History of endocarditis. Recently left AMA during treatment, presenting with possible hip osteomyelitis. HISTORY OF PRESENT ILLNESS: This is a 42-year-old white female who has been diagnosed with endocarditis. The patient has had positive blood cultures with the last culture revealing Staph aureus on 05/03/2018. It was anticipated that the patient would need 6 weeks of IV antibiotics for treatment of endocarditis. Endocarditis was highly suspected. She did have a negative TTE during that hospitalization. The patient has been known to sign out against medical advice multiple times in the past, rather than go through treatment for infection. She signed out against medical advice on 05/09/2018. She began to have more pain in her right hip and presented to the emergency department again because she was having difficulty walking. She is known to be an IV drug user. Blood cultures have been repeated. Evaluation of the hip included hip x-ray, which showed evidence of acute fracture involving the right acetabulum with superior migration of the right femoral head and deformity involving the superior-lateral aspect of the femoral head raising possibility of osteonecrosis or possible osteomyelitis. The patient reports that she has been having hip pain for approximately 2 months. She states that she had an MRI at [facility] in [facility] approximately 2 weeks ago and does not recall being told that she had a problem with the hip. Her white blood cell count yesterday was 18.0. Sedimentation rate is greater than 140. She is afebrile. The patient states that she cannot ambulate, and she has severe pain in the right hip. PAST MEDICAL HISTORY: Endocarditis, hepatitis C, IV drug, CVA, hand surgery, laceration of the kidney. ALLERGIES: NO KNOWN DRUG ALLERGIES. MEDICATIONS: 1. Vancomycin. 2. Ambien. 3. Silvia-Colace. 4. Methadone. 5. Insulin. 6. Cefepime. SOCIAL HISTORY: Positive tobacco use. Positive alcohol. Positive active drug abuse. REVIEW OF SYSTEMS: All systems have been reviewed and are negative except for pain in the right hip. PHYSICAL EXAMINATION: GENERAL: She is a frail thin female in no acute distress. She is awake, and she is alert and oriented. VITAL SIGNS: Temperature 97.7, BP 108/67, respirations 16, heart rate 84. HEENT: The head is atraumatic. Extraocular movements grossly intact. Pupils reactive to light. No icterus. Oropharynx: Moist mucosa. Poor dentition. NECK: Supple without adenopathy. LUNGS: Clear breath sounds. HEART: Regular S1, S2. No murmurs heard. ABDOMEN: Bowel sounds present. Soft. No tenderness appreciated. RECTAL: Not performed. EXTREMITIES: Right hip is extremely tender on palpation, and also the right groin is tender as well. There is no erythema. No induration. SKIN: No rash. NEUROLOGIC: No gross focal findings. PSYCHIATRIC: The patient is calm and cooperative. LABORATORY DATA: WBC 10.3, platelets 222, hemoglobin 7.1. Creatinine 0.6, BUN 32, sodium 136. Liver function tests normal. Toxicology screen positive for opiates and cocaine. ASSESSMENT AND PLAN: 1. 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 The patient noncompliant with prior treatments. It was recommended that she receive 6 weeks of IV antibiotics before she left the hospital against medical advice. She now has changes of the right hip which may be due to infection. She has had history of mitral valve endocarditis before. 2. IV drug abuse. 3. Right hip infection/probable osteomyelitis. RECOMMENDATIONS: 1. Monitor the blood cultures from 05/10/2018. 2. Discontinue cefepime. 3. Continue vancomycin. 4. Add Ancef. 5. The patient needs treatment to be completed for endocarditis with 6 weeks treatment as previously recommended by Dr. Javier. If the hip is infected, she will need IV antibiotics for the same duration and possibly longer. Thank you for this consultation. The patient's progress will be monitored. The blood cultures need to be followed until clearance is demonstrated. Jonn Bryan MD FFViraj/ken , 03:02 PM , 03:16 PM
--- NOTE | 2018-05-11 18:47 | P.PNFP ---
Subjective Interval history: Patient seen at bedside this morning in the presence of her mother. Patient reports significant pain particularly overlying the right hip. Patient very tearful and concerned that she may never walk again. A thorough discussion was had about her current state as well as the need to stay inpatient for continued management as opposed to leaving AMA as she has left AMA in the past. Mother also expressed much concern over her health. Patient reports she will stay for the entirety of her in hospital course and adhere to all recommendations. Neither patient or mother had any further questions or concerns. <Yaritza JacobsonSanket Lula - 05/11/18 18:47> Results - Labs Result diagrams: 05/11/18 05:15 05/11/18 05:15 <Andres Martinez - 05/11/18 22:26> Abnormal lab results 05/10/18 05/10/18 05/10/18 Range/Units 20:10 20:21 20:21 RBC (4.00-5.30) mil/mm3 Hgb (11.6-15.3) gm/dL Hct (35.0-46.0) % MCV (80.0-100.0) fL MCH (27.0-34.0) pg RDW (11.6-17.2) % Neut % (Auto) (16.0-70.0) % ESR Greater than 140 H (0-20) mm/hr BUN (7-18) mg/dL POC Glucose (68-110) mg/dl Calcium (8.5-10.1) mg/dL C-Reactive Protein 13.40 H (0.00-0.30) mg/dL Albumin (3.4-5.0) g/dL Urine Clarity Cloudy H (Clear) Urine Protein 100 H (Neg-Trace) mg/dL Ur Leukocyte Esterase Trace H (Negative) Urine WBC 27 H (0-5) /hpf Urine Mucus Few H (Occasional) /lpf Urine Opiates Screen (Neg) Urine Cocaine Screen (Neg) 05/11/18 05/11/18 05/11/18 Range/Units 05:15 05:15 11:30 RBC 3.48 L (4.00-5.30) mil/mm3 Hgb 7.1 L (11.6-15.3) gm/dL Hct 21.8 L (35.0-46.0) % MCV 62.7 L (80.0-100.0) fL MCH 20.4 L (27.0-34.0) pg RDW 17.4 H (11.6-17.2) % Neut % (Auto) 73.7 H (16.0-70.0) % ESR (0-20) mm/hr BUN 32 H (7-18) mg/dL POC Glucose (68-110) mg/dl Calcium 8.1 L (8.5-10.1) mg/dL C-Reactive Protein (0.00-0.30) mg/dL Albumin 1.6 L (3.4-5.0) g/dL Urine Clarity (Clear) Urine Protein (Neg-Trace) mg/dL Ur Leukocyte Esterase (Negative) Urine WBC (0-5) /hpf Urine Mucus (Occasional) /lpf Urine Opiates Screen Pos H (Neg) Urine Cocaine Screen Pos H (Neg) 05/11/18 Range/Units 20:51 RBC (4.00-5.30) mil/mm3 Hgb (11.6-15.3) gm/dL Hct (35.0-46.0) % MCV (80.0-100.0) fL MCH (27.0-34.0) pg RDW (11.6-17.2) % Neut % (Auto) (16.0-70.0) % ESR (0-20) mm/hr BUN (7-18) mg/dL POC Glucose 182 H (68-110) mg/dl Calcium (8.5-10.1) mg/dL C-Reactive Protein (0.00-0.30) mg/dL Albumin (3.4-5.0) g/dL Urine Clarity (Clear) Urine Protein (Neg-Trace) mg/dL Ur Leukocyte Esterase (Negative) Urine WBC (0-5) /hpf Urine Mucus (Occasional) /lpf Urine Opiates Screen (Neg) Urine Cocaine Screen (Neg) Short CBC 05/11/18 Range/Units 05:15 WBC 10.3 (4.0-11.0) th/mm3 Hgb 7.1 L (11.6-15.3) gm/dL Hct 21.8 L (35.0-46.0) % Plt Count 222 D (150-450) th/mm3 BMP 05/11/18 05:15 Sodium 136 Potassium 3.6 Chloride 100 Carbon Dioxide 24.4 BUN 32 H Creatinine 0.66 Calcium 8.1 L Liver Function 05/11/18 Range/Units 05:15 Total Bilirubin 0.2 (0.2-1.0) mg/dL AST 29 (15-37) U/L ALT 10 (10-53) U/L Alkaline Phosphatase 88 (45-117) U/L Albumin 1.6 L (3.4-5.0) g/dL Urine 05/10/18 Range/Units 20:10 Urine Color Yellow (Yellw/Straw) Urine Clarity Cloudy H (Clear) Urine pH 5.0 (5.0-8.5) Ur Specific Dixon 1.020 (1.002-1.035) Urine Protein 100 H (Neg-Trace) mg/dL Urine Glucose (UA) Negative (Negative) mg/dL <Andres Martinez - 05/11/18 22:26> Abnormal lab results 05/10/18 05/10/18 05/10/18 Range/Units 20:10 20:21 20:21 WBC 18.0 H (4.0-11.0) th/mm3 RBC 3.93 L (4.00-5.30) mil/mm3 Hgb 7.8 L (11.6-15.3) gm/dL Hct 25.0 L (35.0-46.0) % MCV 63.7 L (80.0-100.0) fL MCH 19.8 L (27.0-34.0) pg MCHC 31.1 L (32.0-36.0) % RDW (11.6-17.2) % Plt Count 541 H D (150-450) th/mm3 Neut % (Auto) 84.6 H (16.0-70.0) % Neut # (Auto) 15.3 H (1.8-7.7) th/mm3 ESR (0-20) mm/hr Sodium 133 L (136-145) meq/L Chloride 94 L (98-107) meq/L BUN 36 H (7-18) mg/dL Creatinine 1.26 H (0.50-1.00) mg/dL Estimated GFR 47 L (>89) mL/min Lactic Acid (0.4-2.0) mmol/L Calcium (8.5-10.1) mg/dL C-Reactive Protein (0.00-0.30) mg/dL Albumin 1.9 L (3.4-5.0) g/dL Urine Clarity Cloudy H (Clear) Urine Protein 100 H (Neg-Trace) mg/dL Ur Leukocyte Esterase Trace H (Negative) Urine WBC 27 H (0-5) /hpf Urine Mucus Few H (Occasional) /lpf Urine Opiates Screen (Neg) Urine Cocaine Screen (Neg) 05/10/18 05/10/18 05/10/18 Range/Units 20:21 20:21 20:50 WBC (4.0-11.0) th/mm3 RBC (4.00-5.30) mil/mm3 Hgb (11.6-15.3) gm/dL Hct (35.0-46.0) % MCV (80.0-100.0) fL MCH (27.0-34.0) pg MCHC (32.0-36.0) % RDW (11.6-17.2) % Plt Count (150-450) th/mm3 Neut % (Auto) (16.0-70.0) % Neut # (Auto) (1.8-7.7) th/mm3 ESR Greater than 140 H (0-20) mm/hr Sodium (136-145) meq/L Chloride (98-107) meq/L BUN (7-18) mg/dL Creatinine (0.50-1.00) mg/dL Estimated GFR (>89) mL/min Lactic Acid 2.3 H (0.4-2.0) mmol/L Calcium (8.5-10.1) mg/dL C-Reactive Protein 13.40 H (0.00-0.30) mg/dL Albumin (3.4-5.0) g/dL Urine Clarity (Clear) Urine Protein (Neg-Trace) mg/dL Ur Leukocyte Esterase (Negative) Urine WBC (0-5) /hpf Urine Mucus (Occasional) /lpf Urine Opiates Screen (Neg) Urine Cocaine Screen (Neg) 05/11/18 05/11/18 05/11/18 Range/Units 05:15 05:15 11:30 WBC (4.0-11.0) th/mm3 RBC 3.48 L (4.00-5.30) mil/mm3 Hgb 7.1 L (11.6-15.3) gm/dL Hct 21.8 L (35.0-46.0) % MCV 62.7 L (80.0-100.0) fL MCH 20.4 L (27.0-34.0) pg MCHC (32.0-36.0) % RDW 17.4 H (11.6-17.2) % Plt Count (150-450) th/mm3 Neut % (Auto) 73.7 H (16.0-70.0) % Neut # (Auto) (1.8-7.7) th/mm3 ESR (0-20) mm/hr Sodium (136-145) meq/L Chloride (98-107) meq/L BUN 32 H (7-18) mg/dL Creatinine (0.50-1.00) mg/dL Estimated GFR (>89) mL/min Lactic Acid (0.4-2.0) mmol/L Calcium 8.1 L (8.5-10.1) mg/dL C-Reactive Protein (0.00-0.30) mg/dL Albumin 1.6 L (3.4-5.0) g/dL Urine Clarity (Clear) Urine Protein (Neg-Trace) mg/dL Ur Leukocyte Esterase (Negative) Urine WBC (0-5) /hpf Urine Mucus (Occasional) /lpf Urine Opiates Screen Pos H (Neg) Urine Cocaine Screen Pos H (Neg) Short CBC 05/10/18 05/11/18 Range/Units 20:21 05:15 WBC 18.0 H 10.3 (4.0-11.0) th/mm3 Hgb 7.8 L 7.1 L (11.6-15.3) gm/dL Hct 25.0 L 21.8 L (35.0-46.0) % Plt Count 541 H D 222 D (150-450) th/mm3 BMP 05/10/18 05/11/18 20:21 05:15 Sodium 133 L 136 Potassium 3.6 3.6 Chloride 94 L 100 Carbon Dioxide 27.7 24.4 BUN 36 H 32 H Creatinine 1.26 H 0.66 Calcium 8.8 8.1 L Liver Function 05/10/18 05/11/18 Range/Units 20:21 05:15 Total Bilirubin 0.3 0.2 (0.2-1.0) mg/dL AST 34 29 (15-37) U/L ALT 12 10 (10-53) U/L Alkaline Phosphatase 113 88 (45-117) U/L Albumin 1.9 L 1.6 L (3.4-5.0) g/dL Urine 05/10/18 Range/Units 20:10 Urine Color Yellow (Yellw/Straw) Urine Clarity Cloudy H (Clear) Urine pH 5.0 (5.0-8.5) Ur Specific Dixon 1.020 (1.002-1.035) Urine Protein 100 H (Neg-Trace) mg/dL Urine Glucose (UA) Negative (Negative) mg/dL <Sanket Cramer - 05/11/18 18:47> - Imaging Impressions Hip CT 05/11/18 00:00 CONCLUSION: 1. Findings consistent with advanced right hip septic arthritis. There is advanced destructive changes of the right femur and acetabulum with associated joint abscess which extends medially and inferiorly through the obturator muscle. There is also associated pathologic fracture of the medial acetabular roof. <JuanAndres - 05/11/18 22:26> Impressions Hip X-Ray 05/10/18 19:16 CONCLUSION: Evidence of acute fracture involving the right acetabulum with superior migration of the right femoral head and deformity involving the superolateral aspect of the femoral head raising possibility of osteonecrosis or possible osteomyelitis. Significant arthritic changes and joint space narrowing have developed within the superior lateral aspect of the right hip. The entire process has demonstrated a fairly rapid development as previous films of the right hip in February 2018 demonstrated none of these findings. Hip CT 05/11/18 00:00 CONCLUSION: 1. Findings consistent with advanced right hip septic arthritis. There is advanced destructive changes of the right femur and acetabulum with associated joint abscess which extends medially and inferiorly through the obturator muscle. There is also associated pathologic fracture of the medial acetabular roof. <Sanket Cramer - 05/11/18 18:47> Physical Exam Vital signs: Vital Signs 05/11/18 00:00 05/11/18 04:00 05/11/18 08:00 Temperature 97.6 F 98.4 F Pulse Rate 84 100 H 105 H Respiratory Rate 14 17 12 Blood Pressure 112/74 108/61 142/94 H Pulse Oximetry 98 98 97 05/11/18 12:00 05/11/18 15:52 05/11/18 20:00 Temperature 97.7 F 98.3 F 99.4 F Pulse Rate 84 101 H 107 H Respiratory Rate 12 12 20 Blood Pressure 108/67 130/61 128/69 Pulse Oximetry 98 99 97 Intake & Output 05/11/18 05/11/18 05/12/18 06:59 18:59 06:59 Intake Total 570 / 570 2754.5 / 2754.5 1000 / 1000 Output Total 1999 Balance 570 / 570 754.5 / 754.5 1000 / 1000 Weight 43 kg Intake: IV 450 / 450 1254.5 / 1254.5 1000 / 1000 NS Inj 1,000 ML @ 80 mls/hr IV. 897 / 897 1000 / 1000 CONT .[id number] [facility] Rx#:[id number] Maxipime Inj 2,000 MG In NS Inj 200 / 200 100 / 100 100 ML @ 200 mls/hr IV.SIG Q8H [facility] Rx#:[id number] Vancomycin Inj 1,000 MG In NS 250 / 250 Inj 250 ML @ 250 mls/hr IV.SIG ONCE ONE Rx#:[id number] Vancomycin Inj 750 MG In NS Inj 257.5 / 257.5 250 ML @ 250 mls/hr IV.SIG Q12H [facility] Rx#:[id number] Oral 120 / 120 1500 / 1500 Output: Urine 1999 Other: # Voids 3 Date of Last Bowel Movement 05/10/18 05/10/18 # Bowel Movements 0 Weight On Admission 43.091 kg <Andres Martinez - 05/11/18 22:26> Vital Signs 05/10/18 20:00 05/11/18 00:00 05/11/18 04:00 Temperature 97.6 F Pulse Rate 108 H 84 100 H Respiratory Rate 16 14 17 Blood Pressure 112/74 108/61 Pulse Oximetry 98 98 98 05/11/18 08:00 05/11/18 12:00 05/11/18 15:52 Temperature 98.4 F 97.7 F 98.3 F Pulse Rate 105 H 84 101 H Respiratory Rate 12 12 12 Blood Pressure 142/94 H 108/67 130/61 Pulse Oximetry 97 98 99 Intake & Output 05/10/18 05/11/18 05/11/18 18:59 06:59 18:59 Intake Total 570 / 570 1254.5 / 1254.5 Output Total 800 / 800 Balance 570 / 570 454.5 / 454.5 Weight 43.091 kg 43 kg Intake: IV 450 / 450 1254.5 / 1254.5 NS Inj 1,000 ML @ 80 mls/hr IV. 897 / 897 CONT .[id number] [facility] Rx#:[id number] Maxipime Inj 2,000 MG In NS Inj 200 / 200 100 / 100 100 ML @ 200 mls/hr IV.SIG Q8H [facility] Rx#:[id number] Vancomycin Inj 1,000 MG In NS 250 / 250 Inj 250 ML @ 250 mls/hr IV.SIG ONCE ONE Rx#:[id number] Vancomycin Inj 750 MG In NS Inj 257.5 / 257.5 250 ML @ 250 mls/hr IV.SIG Q12H [facility] Rx#:[id number] Oral 120 / 120 Output: Urine 800 / 800 Other: # Voids 3 Date of Last Bowel Movement 05/10/18 # Bowel Movements 0 Weight On Admission 43.091 kg <Yaritza Sanket Jacobson Lula - 05/11/18 18:47> Narrative: General: Frail, cachectic appearing female somewhat disheveled lying in bed in moderate distress HEENT: Normocephalic, pupils equal, round, reactive to light with moist mucous membranes CV: Regular rate and rhythm with 1/6 systolic murmur Pulmonary: Clear to auscultation bilaterally MSK: Right hip painful with any type of movement including log roll or flexion. Limited range of motion secondary to pain. Sensation appears to be intact in the entire leg. There is no obvious swelling, erythema, or edema. <Yaritza JacobsonSaknet Lula - 05/11/18 18:47> Assessment and Plan - Assessment (1) Hip osteomyelitis, right Code(s): M86.9 - Osteomyelitis, unspecified Status: Acute (2) Sepsis Code(s): A41.9 - Sepsis, unspecified organism Status: Acute (3) ANDRZEJ (acute kidney injury) Code(s): N17.9 - Acute kidney failure, unspecified Status: Acute (4) Polysubstance abuse Code(s): F19.10 - Other psychoactive substance abuse, uncomplicated Status: Acute (5) Diabetes Code(s): E11.9 - Type 2 diabetes mellitus without complications Status: Acute (6) History of bacterial endocarditis Code(s): Z86.79 - Personal history of other diseases of the circulatory system Status: Acute (7) Nutrition, metabolism, and development symptoms Code(s): R63.8 - Other symptoms and signs concerning food and fluid intake Status: Acute (8) DVT prophylaxis Status: Acute <Andres Martinez - 05/11/18 22:26> (1) Hip osteomyelitis, right Code(s): M86.9 - Osteomyelitis, unspecified Status: Acute Plan: Orthopedic consultation has been placed for further evaluation of breakdown of the hip due to osteomyelitis versus osteonecrosis IV antibiotics: Vancomycin Cefepime CT of the hip with interventional radiology to perform aspiration biopsy of the hip -Patient is a very poor surgical candidate due to her active IV drug use and bacteremia Blood cultures ordered and pending ESR elevated at greater than 140 CRP elevated at 13.4 Infectious disease consult placed Physical therapy to evaluate patient Hip x-ray: Evidence of acute fracture involving the right acetabulum with superior migration of the right femoral head and deformity involving the superolateral aspect of the femoral head raising possibility of osteonecrosis or possible osteomyelitis. Significant arthritic changes and joint space narrowing have developed within the superior lateral aspect of the right hip. The entire process is demonstrated a fairly rapid development as previous films of the right hip in February 2018 demonstrate none of these findings (2) Sepsis Code(s): A41.9 - Sepsis, unspecified organism Status: Acute Plan: Treatment plan as per osteomyelitis (3) ANDRZEJ (acute kidney injury) Code(s): N17.9 - Acute kidney failure, unspecified Status: Acute Plan: Resolved overnight with IV fluid hydration, creatinine currently 0.66 with a BUN of 32 and GFR greater than 89 -Monitor renal function while on vancomycin (4) Polysubstance abuse Code(s): F19.10 - Other psychoactive substance abuse, uncomplicated Status: Acute Plan: Patient with known IV drug use, recently using heroin and other opiates -Toxicology screen positive for opiates and cocaine Placed on methadone 10 mg every 12 hours scheduled -Methadone 10 mg every 12 hours as needed for agitation -Hydromorphone 1 mg every 4 hours as needed for breakthrough pain -Haldol 1 mg as needed for severe agitation (5) Diabetes Code(s): E11.9 - Type 2 diabetes mellitus without complications Status: Acute Plan: -Low-dose sliding scale insulin (6) History of bacterial endocarditis Code(s): Z86.79 - Personal history of other diseases of the circulatory system Status: Acute Plan: Blood cultures ordered and pending Infectious disease consulted -Recent blood cultures positive for MSSA on 05/03 and 05/04 with clear blood cultures from 05/05 and 05/06 while on Ancef. Patient left the hospital AMA without adequate treatment (7) Nutrition, metabolism, and development symptoms Code(s): R63.8 - Other symptoms and signs concerning food and fluid intake Status: Acute Plan: Fluids: Not indicated at this time Electrolytes: Replete as needed Nutrition: Regular diet DVT prophylaxis: Heparin subcu Add Ensure supplementation with meals (8) DVT prophylaxis Status: Acute Plan: Heparin subcu <Sanket Cramer - 05/11/18 18:43> - Attending Attestation Pt. examined independently of resident physicians during rounds today I have read the above note and agree with the assessment/plan as discussed with me I was involved in all medical decision making for this patient Andres Martinez MD <Andres Martinez - 05/11/18 22:26>
[2018-05-11] MEDS ORDERED: Vancomycin Inj 750 MG in Sodium Chlor 0.9% Inj 250 ML IV.SIG SCH (20:00)
--- NOTE | 2018-05-12 01:37 | ECG ---
Date Performed: 05/10/2018 Time Performed: 20:12:02 PTAGE: 42 years EKG: SINUS TACHYCARDIA WITH SHORT MO INTERVAL MODERATE VOLTAGE CRITERIA FOR LVH, CONSIDER NORMAL VARIANT NONSPECIFIC T-WAVE ABNORMALITY ABNORMAL RHYTHM ECG PREVIOUS TRACING : 05/05/2018 15.55 Since the previous tracing, no significant change noted DOCTOR: Klaus Webster Interpretating Date/Time 05/12/2018 01:36:03
[2018-05-12] MEDS: Methadone 10 MG Tablet PO PRN (02:47)
[2018-05-12] MEDS: Insulin NovoLIN Regular Correctional Sugar Inj SQ SCH ×5 (03:00→21:14)
[2018-05-12] MEDS ORDERED: ceFAZolin 2 GM Premix Inj 2 GM/50 ML PIGGYBACK IV.SIG SCH (09:00)
[2018-05-12] MEDS ORDERED: Iohexol 350 MG/ML 50 ML Vial (for Rad Diag) IVCONTRAST ONE (09:30)
[2018-05-12] MEDS: Heparin - SQ 10,000 UNITS/ML Vial SQ SCH ×2 (10:30→21:13)
[2018-05-12] MEDS: Senna/Docusate Sodium 8.6/50 MG Tablet PO SCH ×2 (10:30→21:13)
[2018-05-12] MEDS: Vancomycin Inj 750 MG in Sodium Chlor 0.9% Inj 250 ML IV.SIG SCH ×2 (11:00→23:26)
[2018-05-12 11:06] LABS: Lymphocytes,Synovial Fluid 3 %; Neutrophils,Synovial Fluid 94 % (0-25)
[2018-05-12 11:17] LABS: Appearance,Synovial Fluid Moderate (Clear); Color,Synovial Fluid Red (Straw)
--- NOTE | 2018-05-12 11:27 | IR ---
EXAM DATE: 05/12/2018 10:09 AM EST AGE/SEX: 42 years / Female INDICATIONS: Patient with osteomyelitis in need of right hip aspiration. CLINICAL DATA: This is the patient's initial encounter. Patient reports that signs and symptoms have been present for 1 week and indicates a pain score of 9/10. MEDICAL/SURGICAL HISTORY: Diabetes. IVDU, Hepatitis C, Endocarditis Hand surgery COMPARISON: No prior exams available for comparison. FLUORO TIME (min): 0.9 IMAGE SERIES: 1 RADIATION DOSE: 7mGy CONTRAST (cc): 2cc Omnipaque (iohexol) 350 DEVICE(S): 22 gauge needle was placed into the Right hip joint. RESPONSE: Pain Score Pre Procedure: 9/10 Pain Score Post Procedure: 5/10 FLUID: Total volume of 3 cc of cloudy, red fluid was removed. Fluid was sent to lab for ordered studies. . . PROCEDURE : 1. Fluoroscopically guided aspiration. The risks, benefits and alternatives to the procedure were explained and verbal and written consent w as obtained. The site was prepped in sterile fashion. Full sterile technique was used, including ca p, mask, sterile gloves and gown and a large sterile sheet. Hand hygiene and 2% chlorhexidine and/or betadine/alcohol prep was utilized per protocol for cutaneous antisepsis. The skin and subcutaneous tissues were infiltrated with local anesthetic solution. 3 cc of purulent material removed from the right hip joint. Contrast was injected to confirm intra-ar ticular position. The patient tolerated the procedure well and there were no complications. CONCLUSION: 1. Uncomplicated aspiration as above. Electronically signed by: Xavier Davenport MD Board Certified Radiologist 05/12/2018 11:25 AM EST
--- NOTE | 2018-05-12 11:50 | P.PNFP ---
Subjective Interval history: Patient is postop day 0 after right hip aspiration earlier today. She reports that the procedure was well-tolerated. She is complaining that her pain is overwhelming. She is requesting that we replace her current regimen of methadone and Dilaudid for morphine. She denies any fever, chills, nausea, vomiting overnight. <Tip Balderas - 05/12/18 11:50> Results - Labs Result diagrams: 05/13/18 05:21 05/13/18 05:21 <Andres Martinez - 05/13/18 13:54> Abnormal lab results 05/12/18 05/12/18 05/13/18 Range/Units 16:47 19:38 02:51 RBC (4.00-5.30) mil/mm3 Hgb (11.6-15.3) gm/dL Hct (35.0-46.0) % MCV (80.0-100.0) fL MCH (27.0-34.0) pg MCHC (32.0-36.0) % RDW (11.6-17.2) % Plt Count (150-450) th/mm3 Neut % (Auto) (16.0-70.0) % Creatinine (0.50-1.00) mg/dL POC Glucose 346 H 256 H 173 H (68-110) mg/dl Calcium (8.5-10.1) mg/dL Vancomycin Trough (5.0-10.0) mcg/mL 05/13/18 05/13/18 05/13/18 Range/Units 05:21 05:21 12:00 RBC 3.69 L (4.00-5.30) mil/mm3 Hgb 7.3 L (11.6-15.3) gm/dL Hct 23.5 L (35.0-46.0) % MCV 63.8 L (80.0-100.0) fL MCH 19.8 L (27.0-34.0) pg MCHC 31.0 L (32.0-36.0) % RDW 17.3 H (11.6-17.2) % Plt Count 456 H D (150-450) th/mm3 Neut % (Auto) 71.1 H (16.0-70.0) % Creatinine 0.48 L (0.50-1.00) mg/dL POC Glucose (68-110) mg/dl Calcium 8.2 L (8.5-10.1) mg/dL Vancomycin Trough 11.7 H (5.0-10.0) mcg/mL 05/13/18 Range/Units 12:52 RBC (4.00-5.30) mil/mm3 Hgb (11.6-15.3) gm/dL Hct (35.0-46.0) % MCV (80.0-100.0) fL MCH (27.0-34.0) pg MCHC (32.0-36.0) % RDW (11.6-17.2) % Plt Count (150-450) th/mm3 Neut % (Auto) (16.0-70.0) % Creatinine (0.50-1.00) mg/dL POC Glucose 162 H (68-110) mg/dl Calcium (8.5-10.1) mg/dL Vancomycin Trough (5.0-10.0) mcg/mL Short CBC 05/13/18 Range/Units 05:21 WBC 6.0 (4.0-11.0) th/mm3 Hgb 7.3 L (11.6-15.3) gm/dL Hct 23.5 L (35.0-46.0) % Plt Count 456 H D (150-450) th/mm3 BMP 05/13/18 05:21 Sodium 136 Potassium 3.5 Chloride 99 Carbon Dioxide 31.7 BUN 11 Creatinine 0.48 L Calcium 8.2 L <Andres Martinez - 05/13/18 13:54> Abnormal lab results 05/10/18 05/11/18 05/11/18 Range/Units 20:10 11:30 20:51 POC Glucose 182 H (68-110) mg/dl Urine Clarity Cloudy H (Clear) Urine Protein 100 H (Neg-Trace) mg/dL Ur Leukocyte Esterase Trace H (Negative) Urine WBC 27 H (0-5) /hpf Urine Mucus Few H (Occasional) /lpf Synovial Color (Straw) Synovial Appearance (Clear) Synovial RBC (0-0) /mm3 Synovial Nuc Cells (0-200) /mm3 Synovial Neutrophils (0-25) % Urine Opiates Screen Pos H (Neg) Urine Cocaine Screen Pos H (Neg) 12/24/18 Range/Units 09:35 POC Glucose (68-110) mg/dl Urine Clarity (Clear) Urine Protein (Neg-Trace) mg/dL Ur Leukocyte Esterase (Negative) Urine WBC (0-5) /hpf Urine Mucus (Occasional) /lpf Synovial Color Red H (Straw) Synovial Appearance Moderate H (Clear) Synovial RBC 26324 H (0-0) /mm3 Synovial Nuc Cells 98016 H (0-200) /mm3 Synovial Neutrophils 94 H (0-25) % Urine Opiates Screen (Neg) Urine Cocaine Screen (Neg) Urine 05/10/18 Range/Units 20:10 Urine Color Yellow (Yellw/Straw) Urine Clarity Cloudy H (Clear) Urine pH 5.0 (5.0-8.5) Ur Specific [place] 1.020 (1.002-1.035) Urine Protein 100 H (Neg-Trace) mg/dL Urine Glucose (UA) Negative (Negative) mg/dL <Tip Balderas - 05/12/18 11:50> - Imaging Impressions Hip CT 05/11/18 00:00 CONCLUSION: 1. Findings consistent with advanced right hip septic arthritis. There is advanced destructive changes of the right femur and acetabulum with associated joint abscess which extends medially and inferiorly through the obturator muscle. There is also associated pathologic fracture of the medial acetabular roof. <Tip Balderas - 05/12/18 11:50> Physical Exam Vital signs: Vital Signs 05/12/18 16:00 05/12/18 20:00 05/13/18 00:00 Temperature 100.1 F H 99.1 F 98.2 F Pulse Rate 101 H 111 H 102 H Respiratory Rate 16 17 18 Blood Pressure 136/73 150/70 H 138/79 Pulse Oximetry 100 98 98 05/13/18 04:00 05/13/18 08:00 05/13/18 12:00 Temperature 97.4 F L 97.7 F 97.8 F Pulse Rate 77 96 H 102 H Respiratory Rate 14 16 15 Blood Pressure 114/66 141/80 H 142/78 H Pulse Oximetry 95 100 100 Intake & Output 05/12/18 05/13/18 05/13/18 18:59 06:59 18:59 Intake Total 1407.5 / 1407.5 1774 / 1774 398.5 / 398.5 Output Total 1100 / 1100 750 / 750 Balance 307.5 / 307.5 1024 / 1024 398.5 / 398.5 Weight 40.2 kg Intake: IV 1407.5 / 1407.5 1354 / 1354 398.5 / 398.5 NS Inj 1,000 ML @ 80 mls/hr IV. 1000 / 1000 859 / 859 141 / 141 CONT .[id number] RENU Rx#:[id number] Maxipime Inj 2,000 MG In NS Inj 100 / 100 220 / 220 100 ML @ 200 mls/hr IV.SIG Q8H RENU Rx#:[id number] Vancomycin Inj 750 MG In NS Inj 257.5 / 257.5 275 / 275 257.5 / 257.5 250 ML @ 250 mls/hr IV.SIG Q12H RENU Rx#:[id number] Ancef 2 GM Premix Inj 2 gm In 50 / 50 50 ml @ 100 mls/hr IV.SIG Q8H RENU Rx#:[id number] Oral 420 / 420 Output: Urine 1100 / 1100 750 / 750 Other: Date of Last Bowel Movement 05/10/18 05/10/18 # Bowel Movements 1 <Andres Martinez - 05/13/18 13:54> Vital Signs 05/11/18 12:00 05/11/18 15:52 05/11/18 20:00 Temperature 97.7 F 98.3 F 99.4 F Pulse Rate 84 101 H 107 H Respiratory Rate 12 12 20 Blood Pressure 108/67 130/61 128/69 Pulse Oximetry 98 99 97 05/11/18 22:35 05/12/18 00:00 05/12/18 04:00 Temperature 99.6 F 100 F H 98.1 F Pulse Rate 118 H 105 H 88 Respiratory Rate 18 19 14 Blood Pressure 130/83 152/87 H 138/95 H Pulse Oximetry 94 L 96 100 05/12/18 08:00 Temperature 98.1 F Pulse Rate 90 Respiratory Rate 16 Blood Pressure 139/88 Pulse Oximetry 100 Intake & Output 05/11/18 05/12/18 05/12/18 18:59 06:59 18:59 Intake Total 2754.5 / 2754.5 1375 / 1375 Output Total 1999 / 1999 500 / 500 Balance 754.5 / 754.5 875 / 875 Weight 39.6 kg Intake: IV 1254.5 / 1254.5 1375 / 1375 NS Inj 1,000 ML @ 80 mls/hr IV. 897 / 897 1000 / 1000 CONT .[id number] RENU Rx#:[id number] Maxipime Inj 2,000 MG In NS Inj 100 / 100 100 / 100 100 ML @ 200 mls/hr IV.SIG Q8H RENU Rx#:[id number] Vancomycin Inj 750 MG In NS Inj 257.5 / 257.5 275 / 275 250 ML @ 250 mls/hr IV.SIG Q12H RENU Rx#:[id number] Oral 1500 / 1500 Output: Urine 1999 / 1999 500 / 500 Other: Date of Last Bowel Movement 05/10/18 <Tip Balderas - 05/12/18 11:50> Narrative: General: Frail, cachectic appearing female somewhat disheveled lying in bed in no acute distress, but she becomes tearful when talking about her pain HEENT: Normocephalic, pupils equal, round, reactive to light with moist mucous membranes CV: Regular rate and rhythm Pulmonary: Clear to auscultation bilaterally MSK: Right hip painful with movement. Limited range of motion secondary to pain. Sensation appears to be intact in the entire leg. Motor is intact distally. Less than 2-second capillary refill distal to injury. There is no obvious swelling, erythema, or edema. <Tip Balderas - 05/12/18 11:50> Assessment and Plan - Assessment (1) Hip osteomyelitis, right Code(s): M86.9 - Osteomyelitis, unspecified Status: Acute (2) Sepsis Code(s): A41.9 - Sepsis, unspecified organism Status: Acute (3) Pseudomonas urinary tract infection Code(s): N39.0 - Urinary tract infection, site not specified; B96.5 - Pseudomonas (aeruginosa) (mallei) (pseudomallei) as the cause of diseases classified elsewhere Status: Acute (4) Polysubstance abuse Code(s): F19.10 - Other psychoactive substance abuse, uncomplicated Status: Acute (5) Diabetes Code(s): E11.9 - Type 2 diabetes mellitus without complications Status: Acute (6) History of bacterial endocarditis Code(s): Z86.79 - Personal history of other diseases of the circulatory system Status: Acute (7) Nutrition, metabolism, and development symptoms Code(s): R63.8 - Other symptoms and signs concerning food and fluid intake Status: Acute (8) DVT prophylaxis Status: Acute <Andres Martinez - 05/13/18 13:54> (1) Hip osteomyelitis, right Code(s): M86.9 - Osteomyelitis, unspecified Status: Acute Plan: 42-year-old IVDU female with a h/o of mitral valve endocarditis, noncompliance, leaving AMA, p/w significant destruction of right hip joint, likely osteomyelitis, and recent diagnosis of bacteremia and endocarditis due to staph aureus. Orthopedic consultation appreciated: -CT scan to evaluate for the extent of her osteomyelitis and bony involvement. -IR aspiration and biopsy to determine appropriate antibiotic management. -She will likely require multiple surgeries in her future including resection of her right hip with placement of antibiotic spacer. She is still currently an IV drug user. This certainly means that she would not be a good candidate for reconstruction down the road should she be able to eradicate infection. At this time, no plan for orthopedic surgery today but likely will require right hip resection with placement of antibiotic spacer in the next couple of days. Will await CT results along with IR aspiration biopsy. Antibiotics per medicine and infectious disease. IV antibiotics: Vancomycin Cefepime CT of the hip with interventional radiology to perform aspiration biopsy of the hip: Patient is postop day 0 status post uncomplicated right hip aspiration earlier today -Follow-up aspirated fluid studies Blood cultures show NGTD ESR elevated at greater than 140 CRP elevated at 13.4 Infectious disease consult appreciated: Monitor the blood cultures from 05/10/2018, which show NGTD Abx per ID. Currently keeping Vanc and Cefepime to treat septic joint and urine culture growing pseudomonas The patient needs treatment to be completed for endocarditis with 6 weeks treatment as previously recommended by Dr. Javier. If the hip is infected, she will need IV antibiotics for the same duration and possibly longer. Physical therapy recommended PT at rehab Pain control: -Continue methadone -Stop Dilaudid -Start morphine 4 mg IV every 4 hours as needed for breakthrough pain (2) Sepsis Code(s): A41.9 - Sepsis, unspecified organism Status: Acute Plan: Treatment plan as above; see plan for right hip osteomyelitis (3) Pseudomonas urinary tract infection Code(s): N39.0 - Urinary tract infection, site not specified; B96.5 - Pseudomonas (aeruginosa) (mallei) (pseudomallei) as the cause of diseases classified elsewhere Status: Acute Plan: Urine culture from 05/10 grew pseudomonas -Continue Cefepime (4) Polysubstance abuse Code(s): F19.10 - Other psychoactive substance abuse, uncomplicated Status: Acute Plan: Patient with known IV drug use, recently using heroin and other opiates -Toxicology screen positive for opiates and cocaine Placed on methadone 10 mg every 12 hours scheduled -Methadone 10 mg every 12 hours as needed for agitation -Morphine 4 mg IV every 4 hours as needed for breakthrough pain -Haldol 1 mg as needed for severe agitation (5) Diabetes Code(s): E11.9 - Type 2 diabetes mellitus without complications Status: Acute Plan: -Low-dose sliding scale insulin (6) History of bacterial endocarditis Code(s): Z86.79 - Personal history of other diseases of the circulatory system Status: Acute Plan: Blood cultures show from 05/10/18 show NGTD Infectious disease consulted -Recent blood cultures positive for MSSA on 05/03 and 05/04 with clear blood cultures from 05/05 and 05/06 while on Ancef. Patient left the hospital AMA without adequate treatment (7) Nutrition, metabolism, and development symptoms Code(s): R63.8 - Other symptoms and signs concerning food and fluid intake Status: Acute Plan: Fluids: Not indicated at this time Electrolytes: Replete as needed Nutrition: Regular diet DVT prophylaxis: Heparin subcu Add Ensure supplementation with meals (8) DVT prophylaxis Status: Acute Plan: Heparin subcu <Tip Balderas - 05/12/18 15:45> - Assessment and Plan Discussed Condition With: Dr. Yaritza Kevin <iTp Balderas - 05/12/18 15:51> - Attending Attestation Pt. examined independently during medical rounds on the morning of 05/12/2018 I have read the above resident note and agree with the assessment/plan as discussed with me I was involved in all medical decision making for this patient Andres Martinez MD <Andres Martinez - 05/13/18 13:54>
[2018-05-12] MEDS: Methadone 10 MG Tablet PO SCH (12:18)
[2018-05-12] MEDS: Morphine Inj 4 MG/ML Vial IV.PUSH PRN ×3 (13:03→21:13)
--- NOTE | 2018-05-12 15:05 | P.PNOP ---
Subjective Interval history: Continues to complain of significant right hip pain. Underwent IR aspiration yesterday. Physical Exam Vital signs: Vital Signs 05/11/18 15:52 05/11/18 20:00 05/11/18 22:35 Temperature 98.3 F 99.4 F 99.6 F Pulse Rate 101 H 107 H 118 H Respiratory Rate 12 20 18 Blood Pressure 130/61 128/69 130/83 Pulse Oximetry 99 97 94 L 05/12/18 00:00 05/12/18 04:00 05/12/18 08:00 Temperature 100 F H 98.1 F 98.1 F Pulse Rate 105 H 88 90 Respiratory Rate 19 14 16 Blood Pressure 152/87 H 138/95 H 139/88 Pulse Oximetry 96 100 100 05/12/18 12:00 Temperature 97.7 F Pulse Rate 114 H Respiratory Rate 17 Blood Pressure 123/81 Pulse Oximetry 100 Intake & Output 05/11/18 05/12/18 05/12/18 18:59 06:59 18:59 Intake Total 2754.5 / 2754.5 1375 / 1375 307.5 / 307.5 Output Total 1999 / 1999 500 / 500 Balance 754.5 / 754.5 875 / 875 307.5 / 307.5 Weight 39.6 kg Intake: IV 1254.5 / 1254.5 1375 / 1375 307.5 / 307.5 NS Inj 1,000 ML @ 80 mls/hr IV. 897 / 897 1000 / 1000 CONT .[id number] RENU Rx#:[id number] Maxipime Inj 2,000 MG In NS Inj 100 / 100 100 / 100 100 ML @ 200 mls/hr IV.SIG Q8H RENU Rx#:[id number] Vancomycin Inj 750 MG In NS Inj 257.5 / 257.5 275 / 275 257.5 / 257.5 250 ML @ 250 mls/hr IV.SIG Q12H RENU Rx#:[id number] Ancef 2 GM Premix Inj 2 gm In 50 / 50 50 ml @ 100 mls/hr IV.SIG Q8H RENU Rx#:[id number] Oral 1500 / 1500 Output: Urine 1999 / 1999 500 / 500 Other: Date of Last Bowel Movement 05/10/18 Narrative: Awake alert, no acute distress Right lower extremity: Significant discomfort with any hip range of motion. Neurovascularly intact distally. Negative Homans. Results - Labs CBC & Chem 7: 05/11/18 05:15 05/11/18 05:15 Laboratory Results - last 24 hr 05/10/18 05/11/18 05/11/18 20:10 17:25 20:51 POC Glucose 109 182 H Urine Color Yellow Urine Clarity Cloudy H Urine pH 5.0 Ur Specific [place] 1.020 Urine Protein 100 H Urine Glucose (UA) Negative Urine Ketones Negative Urine Occult Blood Negative Urine Nitrate Negative Urine Bilirubin Negative Urine Ictotest Negative Urine Urobilinogen Less than 2 Ur Leukocyte Esterase Trace H Urine RBC 3 Urine WBC 27 H Ur Squamous Epith Cells 42 Hyaline Casts 13 Granular Casts 6 Urine Mucus Few H Micro UA Comment Culture indicated Urine Culture Comments Culture indicated Synovial Color Synovial Appearance Synovial RBC Synovial Nuc Cells Synovial Neutrophils Synovial Lymphocytes Synovial Monocytes 05/12/18 05/12/18 05/12/18 02:44 09:35 12:22 POC Glucose 103 197 H Urine Color Urine Clarity Urine pH Ur Specific [place] Urine Protein Urine Glucose (UA) Urine Ketones Urine Occult Blood Urine Nitrate Urine Bilirubin Urine Ictotest Urine Urobilinogen Ur Leukocyte Esterase Urine RBC Urine WBC Ur Squamous Epith Cells Hyaline Casts Granular Casts Urine Mucus Micro UA Comment Urine Culture Comments Synovial Color Red H Synovial Appearance Moderate H Synovial RBC 00059 H Synovial Nuc Cells 91716 H Synovial Neutrophils 94 H Synovial Lymphocytes 3 Synovial Monocytes 3 Microbiology 05/10/18 20:31 Blood - Peripheral Aerobic Blood Culture - Preliminary No growth in 2 days 05/10/18 20:31 Blood - Peripheral Anaerobic Blood Culture - Preliminary No growth in 2 days 05/10/18 20:21 Blood - Peripheral Aerobic Blood Culture - Preliminary No growth in 2 days 05/10/18 20:21 Blood - Peripheral Anaerobic Blood Culture - Preliminary No growth in 2 days 05/10/18 20:10 Clean Catch Urine Urine Culture - Final Pseudomonas aeruginosa - Imaging Impressions Hip CT 05/11/18 00:00 CONCLUSION: 1. Findings consistent with advanced right hip septic arthritis. There is advanced destructive changes of the right femur and acetabulum with associated joint abscess which extends medially and inferiorly through the obturator muscle. There is also associated pathologic fracture of the medial acetabular roof. Hip Aspiration/Injection 05/12/18 00:00 CONCLUSION: 1. Uncomplicated aspiration as above. Assessment and Plan - Assessment and Plan 42-year-old IVDU female with significant destructive right hip joint, likely osteomyelitis given history of IV drug use and recent diagnosis of bacteremia and suspected endocarditis. IR aspiration completed yesterday. Results are pending. I did review CT scan and patient has significant acetabular erosion with acute acetabular fracture as a result. This certainly appears to be extensive osteomyelitis. This certainly limits her options. She does require a surgical resection of her hip with antibiotic spacer. This is a complex procedure given the significant destruction of not just her femoral head and neck but also of her acetabulum. With this in mind, I would recommend transfer to a higher level of care such as [facility] or [place] with complex reconstruction surgeons. Patient may require multiple surgeries in the future but in the short-term patient does require at the very least a resection with antibiotic spacer to try to eradicate infection. I will defer to primary team to determine when transfer will be possible. Again, this surgery is complex given the extensiveness of the acetabular erosion and involvement. This is something that should be performed by the appropriate reconstruction surgeon. Patient should continue antibiotics per medicine and infectious disease.
[2018-05-12] MEDS: Sod Chloride 0.9% Inj 1,000 ML IV.CONT SCH ×2 (16:49→23:27)
[2018-05-12] MEDS ORDERED: Pharmacy Ordered Lab Info OTHER ONE (19:45)
[2018-05-12] MEDS: Zolpidem Tartrate 5 MG Tablet PO PRN (21:15)
[2018-05-13] MEDS: Methadone 10 MG Tablet PO SCH ×3 (00:08→23:11)
[2018-05-13] MEDS: Morphine Inj 4 MG/ML Vial IV.PUSH PRN ×3 (02:53→21:47)
[2018-05-13] MEDS: Insulin NovoLIN Regular Correctional Sugar Inj SQ SCH ×5 (03:09→21:48)
[2018-05-13 05:51] LABS: Baso % (Auto) 0.3 % (0.0-2.0); Eos % (Auto) 0.5 % (0.0-4.0); Hematocrit 23.5 % (35.0-46.0); Hemoglobin 7.3 gm/dL (11.6-15.3); Lymph # (Auto) 1.3 th/mm3 (1.0-4.8); Lymph % (Auto) 21.8 % (9.0-44.0); Mean Corpuscular Hemoglobin 19.8 pg (27.0-34.0); Mean Corpuscular Volume 63.8 fL (80.0-100.0); Mean Platelet Volume 7.1 fL (7.0-11.0); Mono # (Auto) 0.4 th/mm3 (0.0-0.9); Mono % (Auto) 6.3 % (0.0-8.0); Neut # (Auto) 4.3 th/mm3 (1.8-7.7); Neut % (Auto) 71.1 % (16.0-70.0); Platelet Count 456 th/mm3 (150-450); Red Blood Count 3.69 mil/mm3 (4.00-5.30); Red Cell Distribution Width 17.3 % (11.6-17.2)
[2018-05-13] MEDS: Methadone 10 MG Tablet PO PRN ×2 (06:09→17:23)
[2018-05-13 06:17] LABS: Anion Gap 5 meq/L (5-15); Blood Urea Nitrogen 11 mg/dL (7-18); Calcium 8.2 mg/dL (8.5-10.1); Carbon Dioxide 31.7 meq/L (21.0-32.0); Chloride 99 meq/L (98-107); Glomerular Filtration Rate Greater Than 89 mL/min (>89); Glucose,Random 75 mg/dL (74-106); Potassium 3.5 meq/L (3.5-5.1); Sodium 136 meq/L (136-145)
[2018-05-13] MEDS ORDERED: ceFAZolin Inj 2,000 MG in Sodium Chlor 0.9% Inj 80 ML IV.SIG SCH (08:00)
[2018-05-13] MEDS: Senna/Docusate Sodium 8.6/50 MG Tablet PO SCH ×2 (08:18→21:48)
[2018-05-13] MEDS: Heparin - SQ 10,000 UNITS/ML Vial SQ SCH ×2 (08:19→21:47)
--- NOTE | 2018-05-13 09:53 | P.PNFP ---
Subjective Interval history: Patient was seen at bedside this morning. Patient continues to express pain and is unhappy with her current regimen of methadone and morphine. She states that because she got her last dose of methadone which there is insufficient she is not able to get her morphine. She also reports accidentally pulling out her IV. Pain regimen was discussed with patient. Patient was also updated on recommendations to be transferred to higher level of care due to her need for extensive surgery. Patient reports that she prefers to be transferred to [facility] due to friends and family in the area. Plans to transfer patient to continue antibiotic coverage and future surgical procedures were discussed at length. She denies any fevers, chills, shortness of breath, chest pain, or new leg pain or swelling. Patient had no further questions and thanked us for our care. <Sanket Cramer - 05/13/18 11:06> Results - Labs Result diagrams: 05/13/18 05:21 05/13/18 05:21 <Andres Martinez - 05/13/18 14:36> Abnormal lab results 05/12/18 05/12/18 05/13/18 Range/Units 16:47 19:38 02:51 RBC (4.00-5.30) mil/mm3 Hgb (11.6-15.3) gm/dL Hct (35.0-46.0) % MCV (80.0-100.0) fL MCH (27.0-34.0) pg MCHC (32.0-36.0) % RDW (11.6-17.2) % Plt Count (150-450) th/mm3 Neut % (Auto) (16.0-70.0) % Creatinine (0.50-1.00) mg/dL POC Glucose 346 H 256 H 173 H (68-110) mg/dl Calcium (8.5-10.1) mg/dL Vancomycin Trough (5.0-10.0) mcg/mL 05/13/18 05/13/18 05/13/18 Range/Units 05:21 05:21 12:00 RBC 3.69 L (4.00-5.30) mil/mm3 Hgb 7.3 L (11.6-15.3) gm/dL Hct 23.5 L (35.0-46.0) % MCV 63.8 L (80.0-100.0) fL MCH 19.8 L (27.0-34.0) pg MCHC 31.0 L (32.0-36.0) % RDW 17.3 H (11.6-17.2) % Plt Count 456 H D (150-450) th/mm3 Neut % (Auto) 71.1 H (16.0-70.0) % Creatinine 0.48 L (0.50-1.00) mg/dL POC Glucose (68-110) mg/dl Calcium 8.2 L (8.5-10.1) mg/dL Vancomycin Trough 11.7 H (5.0-10.0) mcg/mL 05/13/18 Range/Units 12:52 RBC (4.00-5.30) mil/mm3 Hgb (11.6-15.3) gm/dL Hct (35.0-46.0) % MCV (80.0-100.0) fL MCH (27.0-34.0) pg MCHC (32.0-36.0) % RDW (11.6-17.2) % Plt Count (150-450) th/mm3 Neut % (Auto) (16.0-70.0) % Creatinine (0.50-1.00) mg/dL POC Glucose 162 H (68-110) mg/dl Calcium (8.5-10.1) mg/dL Vancomycin Trough (5.0-10.0) mcg/mL Short CBC 05/13/18 Range/Units 05:21 WBC 6.0 (4.0-11.0) th/mm3 Hgb 7.3 L (11.6-15.3) gm/dL Hct 23.5 L (35.0-46.0) % Plt Count 456 H D (150-450) th/mm3 BMP 05/13/18 05:21 Sodium 136 Potassium 3.5 Chloride 99 Carbon Dioxide 31.7 BUN 11 Creatinine 0.48 L Calcium 8.2 L <Andres Martinez - 05/13/18 14:36> Abnormal lab results 05/12/18 05/12/18 05/12/18 Range/Units 09:35 12:22 16:47 RBC (4.00-5.30) mil/mm3 Hgb (11.6-15.3) gm/dL Hct (35.0-46.0) % MCV (80.0-100.0) fL MCH (27.0-34.0) pg MCHC (32.0-36.0) % RDW (11.6-17.2) % Plt Count (150-450) th/mm3 Neut % (Auto) (16.0-70.0) % Creatinine (0.50-1.00) mg/dL POC Glucose 197 H 346 H (68-110) mg/dl Calcium (8.5-10.1) mg/dL Synovial Color Red H (Straw) Synovial Appearance Moderate H (Clear) Synovial RBC 89542 H (0-0) /mm3 Synovial Nuc Cells 78449 H (0-200) /mm3 Synovial Neutrophils 94 H (0-25) % 05/12/18 05/13/18 05/13/18 Range/Units 19:38 02:51 05:21 RBC 3.69 L (4.00-5.30) mil/mm3 Hgb 7.3 L (11.6-15.3) gm/dL Hct 23.5 L (35.0-46.0) % MCV 63.8 L (80.0-100.0) fL MCH 19.8 L (27.0-34.0) pg MCHC 31.0 L (32.0-36.0) % RDW 17.3 H (11.6-17.2) % Plt Count 456 H D (150-450) th/mm3 Neut % (Auto) 71.1 H (16.0-70.0) % Creatinine (0.50-1.00) mg/dL POC Glucose 256 H 173 H (68-110) mg/dl Calcium (8.5-10.1) mg/dL Synovial Color (Straw) Synovial Appearance (Clear) Synovial RBC (0-0) /mm3 Synovial Nuc Cells (0-200) /mm3 Synovial Neutrophils (0-25) % 05/13/18 Range/Units 05:21 RBC (4.00-5.30) mil/mm3 Hgb (11.6-15.3) gm/dL Hct (35.0-46.0) % MCV (80.0-100.0) fL MCH (27.0-34.0) pg MCHC (32.0-36.0) % RDW (11.6-17.2) % Plt Count (150-450) th/mm3 Neut % (Auto) (16.0-70.0) % Creatinine 0.48 L (0.50-1.00) mg/dL POC Glucose (68-110) mg/dl Calcium 8.2 L (8.5-10.1) mg/dL Synovial Color (Straw) Synovial Appearance (Clear) Synovial RBC (0-0) /mm3 Synovial Nuc Cells (0-200) /mm3 Synovial Neutrophils (0-25) % Short CBC 05/13/18 Range/Units 05:21 WBC 6.0 (4.0-11.0) th/mm3 Hgb 7.3 L (11.6-15.3) gm/dL Hct 23.5 L (35.0-46.0) % Plt Count 456 H D (150-450) th/mm3 BMP 05/13/18 05:21 Sodium 136 Potassium 3.5 Chloride 99 Carbon Dioxide 31.7 BUN 11 Creatinine 0.48 L Calcium 8.2 L <Sanket Cramer 05/13/18 09:53> - Imaging Impressions Hip Aspiration/Injection 05/12/18 00:00 CONCLUSION: 1. Uncomplicated aspiration as above. <Sanket Cramer 05/13/18 09:53> Physical Exam Vital signs: Vital Signs 05/12/18 16:00 05/12/18 20:00 05/13/18 00:00 Temperature 100.1 F H 99.1 F 98.2 F Pulse Rate 101 H 111 H 102 H Respiratory Rate 16 17 18 Blood Pressure 136/73 150/70 H 138/79 Pulse Oximetry 100 98 98 05/13/18 04:00 05/13/18 08:00 05/13/18 12:00 Temperature 97.4 F L 97.7 F 97.8 F Pulse Rate 77 96 H 102 H Respiratory Rate 14 16 15 Blood Pressure 114/66 141/80 H 142/78 H Pulse Oximetry 95 100 100 Intake & Output 05/12/18 05/13/18 05/13/18 18:59 06:59 18:59 Intake Total 1407.5 / 1407.5 1774 / 1774 398.5 / 398.5 Output Total 1100 / 1100 750 / 750 Balance 307.5 / 307.5 1024 / 1024 398.5 / 398.5 Weight 40.2 kg Intake: IV 1407.5 / 1407.5 1354 / 1354 398.5 / 398.5 NS Inj 1,000 ML @ 80 mls/hr IV. 1000 / 1000 859 / 859 141 / 141 CONT .[id number] RENU Rx#:[id number] Maxipime Inj 2,000 MG In NS Inj 100 / 100 220 / 220 100 ML @ 200 mls/hr IV.SIG Q8H RENU Rx#:[id number] Vancomycin Inj 750 MG In NS Inj 257.5 / 257.5 275 / 275 257.5 / 257.5 250 ML @ 250 mls/hr IV.SIG Q12H RENU Rx#:[id number] Ancef 2 GM Premix Inj 2 gm In 50 / 50 50 ml @ 100 mls/hr IV.SIG Q8H RENU Rx#:[id number] Oral 420 / 420 Output: Urine 1100 / 1100 750 / 750 Other: Date of Last Bowel Movement 05/10/18 05/10/18 # Bowel Movements 1 <Andres Martinez - 05/13/18 14:36> Vital Signs 05/12/18 12:00 05/12/18 16:00 05/12/18 20:00 Temperature 97.7 F 100.1 F H 99.1 F Pulse Rate 114 H 101 H 111 H Respiratory Rate 17 16 17 Blood Pressure 123/81 136/73 150/70 H Pulse Oximetry 100 100 98 05/13/18 00:00 05/13/18 04:00 05/13/18 08:00 Temperature 98.2 F 97.4 F L 97.7 F Pulse Rate 102 H 77 96 H Respiratory Rate 18 14 16 Blood Pressure 138/79 114/66 141/80 H Pulse Oximetry 98 95 100 Intake & Output 05/12/18 05/13/18 05/13/18 18:59 06:59 18:59 Intake Total 1407.5 / 1407.5 1774 / 1774 Output Total 1100 / 1100 750 / 750 Balance 307.5 / 307.5 1024 / 1024 Weight 40.2 kg Intake: IV 1407.5 / 1407.5 1354 / 1354 NS Inj 1,000 ML @ 80 mls/hr IV. 1000 / 1000 859 / 859 CONT .[id number] RENU Rx#:[id number] Maxipime Inj 2,000 MG In NS Inj 100 / 100 220 / 220 100 ML @ 200 mls/hr IV.SIG Q8H RENU Rx#:[id number] Vancomycin Inj 750 MG In NS Inj 257.5 / 257.5 275 / 275 250 ML @ 250 mls/hr IV.SIG Q12H RENU Rx#:[id number] Ancef 2 GM Premix Inj 2 gm In 50 / 50 50 ml @ 100 mls/hr IV.SIG Q8H RENU Rx#:[id number] Oral 420 / 420 Output: Urine 1100 / 1100 750 / 750 Other: Date of Last Bowel Movement 05/10/18 05/10/18 # Bowel Movements 1 <Sanket Cramer [place] - 05/13/18 09:53> Narrative: General: Frail, cachectic appearing female somewhat disheveled sitting in chair in no acute distress, but she becomes tearful when talking about her pain. Has heating pad overlying right hip. HEENT: Normocephalic, pupils equal, round, reactive to light with moist mucous membranes. Extensive decay dentition. CV: Regular rate and rhythm Pulmonary: Clear to auscultation bilaterally MSK: Right hip painful with movement. Limited range of motion secondary to pain. Sensation appears to be intact in the entire leg. Motor is intact distally. Less than 2-second capillary refill distal to injury. There is no obvious swelling, erythema, or edema. <Sanket Cramer [place] - 05/13/18 10:04> Assessment and Plan - Assessment (1) Hip osteomyelitis, right Code(s): M86.9 - Osteomyelitis, unspecified Status: Acute (2) Sepsis Code(s): A41.9 - Sepsis, unspecified organism Status: Acute (3) Pseudomonas urinary tract infection Code(s): N39.0 - Urinary tract infection, site not specified; B96.5 - Pseudomonas (aeruginosa) (mallei) (pseudomallei) as the cause of diseases classified elsewhere Status: Acute (4) Polysubstance abuse Code(s): F19.10 - Other psychoactive substance abuse, uncomplicated Status: Acute (5) Diabetes Code(s): E11.9 - Type 2 diabetes mellitus without complications Status: Acute (6) History of bacterial endocarditis Code(s): Z86.79 - Personal history of other diseases of the circulatory system Status: Acute (7) Nutrition, metabolism, and development symptoms Code(s): R63.8 - Other symptoms and signs concerning food and fluid intake Status: Acute (8) DVT prophylaxis Status: Acute <Andres Martinez - 05/13/18 14:36> (1) Hip osteomyelitis, right Code(s): M86.9 - Osteomyelitis, unspecified Status: Acute Plan: 42-year-old IVDU female with a h/o of mitral valve endocarditis, noncompliance, leaving AMA, p/w significant destruction of right hip joint, likely osteomyelitis, and recent diagnosis of bacteremia and endocarditis due to staph aureus. Patient is postop day 1 status post uncomplicated right hip aspiration. Aspiration yielded significant red blood cells as well as over 31,000 nucleated cells and neutrophils. PLAN: -Per surgery patient will need to be transferred to higher level of care for extensive surgical management. Patient prefers to be transferred to in [place] location. Medical team will arrange transfer. -Blood cultures (05/10) show NGTD -Afebrile, no leukocytosis IV antibiotics: Vancomycin (05/10) Cefepime (05/10): Continue due to concurrent UTI with susceptible pseudomonas Physical therapy recommended PT at rehab Pain control: -Tylen -Continue methadone -Continue morphine 4 mg IV every 4 hours as needed for breakthrough pain (2) Sepsis Code(s): A41.9 - Sepsis, unspecified organism Status: Acute Plan: Treatment plan as above; see plan for right hip osteomyelitis (3) Pseudomonas urinary tract infection Code(s): N39.0 - Urinary tract infection, site not specified; B96.5 - Pseudomonas (aeruginosa) (mallei) (pseudomallei) as the cause of diseases classified elsewhere Status: Acute Plan: Urine culture from 05/10 grew pseudomonas -Continue Cefepime (05/10) (4) Polysubstance abuse Code(s): F19.10 - Other psychoactive substance abuse, uncomplicated Status: Acute Plan: Patient with known IV drug use, recently using heroin and other opiates -Toxicology screen positive for opiates and cocaine Placed on methadone 10 mg every 12 hours scheduled -Methadone 10 mg every 12 hours as needed for agitation -Morphine 4 mg IV every 4 hours as needed for breakthrough pain -Haldol 1 mg as needed for severe agitation (5) Diabetes Code(s): E11.9 - Type 2 diabetes mellitus without complications Status: Acute Plan: -Low-dose sliding scale insulin (6) History of bacterial endocarditis Code(s): Z86.79 - Personal history of other diseases of the circulatory system Status: Acute Plan: Blood cultures show from 05/10/18 show NGTD Infectious disease consulted -Recent blood cultures positive for MSSA on 05/03 and 05/04 with clear blood cultures from 05/05 and 05/06 while on Ancef. Patient left the hospital AMA without adequate treatment -ID on board Patient current IV antibiotics: Vancomycin (05/10) Cefepime (05/10): Continue due to concurrent UTI with susceptible pseudomonas (7) Nutrition, metabolism, and development symptoms Code(s): R63.8 - Other symptoms and signs concerning food and fluid intake Status: Acute Plan: Fluids: Not indicated at this time Electrolytes: Replete as needed Nutrition: Regular diet DVT prophylaxis: Heparin subcu Add Ensure supplementation with meals (8) DVT prophylaxis Status: Acute Plan: Heparin subcu <Sanket Cramer - 05/13/18 11:01> - Attending Attestation Patient examined independently of resident physicians on 05/13/18 I personally reviewed daily updates with the patient and answered all questions I have read the above note by the resident physicians and agree with the assessment/plan as discussed with me I was involved in all medical decision making for this patient Andres Martinez MD <Adnres Martinez - 05/13/18 14:36>
[2018-05-13] MEDS ORDERED: Pharmacy Ordered Lab Info OTHER ONE (10:45)
[2018-05-13] MEDS: Vancomycin Inj 750 MG in Sodium Chlor 0.9% Inj 250 ML IV.SIG SCH ×2 (12:05→23:11)
[2018-05-13] MEDS: Sod Chloride 0.9% Inj 1,000 ML IV.CONT SCH (12:09)
--- NOTE | 2018-05-13 14:49 | P.PNOP ---
Subjective Interval history: States her right hip pain is worse today after the aspiration. Still awaiting transfer to [place] for definitive management. Physical Exam Vital signs: Vital Signs 05/12/18 16:00 05/12/18 20:00 05/13/18 00:00 Temperature 100.1 F H 99.1 F 98.2 F Pulse Rate 101 H 111 H 102 H Respiratory Rate 16 17 18 Blood Pressure 136/73 150/70 H 138/79 Pulse Oximetry 100 98 98 05/13/18 04:00 05/13/18 08:00 05/13/18 12:00 Temperature 97.4 F L 97.7 F 97.8 F Pulse Rate 77 96 H 102 H Respiratory Rate 14 16 15 Blood Pressure 114/66 141/80 H 142/78 H Pulse Oximetry 95 100 100 Intake & Output 05/12/18 05/13/18 05/13/18 18:59 06:59 18:59 Intake Total 1407.5 / 1407.5 1774 / 1774 398.5 / 398.5 Output Total 1100 / 1100 750 / 750 Balance 307.5 / 307.5 1024 / 1024 398.5 / 398.5 Weight 40.2 kg Intake: IV 1407.5 / 1407.5 1354 / 1354 398.5 / 398.5 NS Inj 1,000 ML @ 80 mls/hr IV. 1000 / 1000 859 / 859 141 / 141 CONT .[id number] RENU Rx#:[id number] Maxipime Inj 2,000 MG In NS Inj 100 / 100 220 / 220 100 ML @ 200 mls/hr IV.SIG Q8H RENU Rx#:[id number] Vancomycin Inj 750 MG In NS Inj 257.5 / 257.5 275 / 275 257.5 / 257.5 250 ML @ 250 mls/hr IV.SIG Q12H RENU Rx#:[id number] Ancef 2 GM Premix Inj 2 gm In 50 / 50 50 ml @ 100 mls/hr IV.SIG Q8H RENU Rx#:[id number] Oral 420 / 420 Output: Urine 1100 / 1100 750 / 750 Other: Date of Last Bowel Movement 05/10/18 05/10/18 # Bowel Movements 1 Narrative: swelling noted to right thigh and hip, TTP over hip, NVI distally Results - Labs CBC & Chem 7: 05/13/18 05:21 05/13/18 05:21 Laboratory Results - last 24 hr 05/12/18 05/12/18 05/13/18 16:47 19:38 02:51 WBC RBC Hgb Hct MCV MCH MCHC RDW Plt Count MPV Neut % (Auto) Lymph % (Auto) [place] % (Auto) Eos % (Auto) Baso % (Auto) Neut # (Auto) Lymph # (Auto) [place] # (Auto) Eos # (Auto) Baso # (Auto) WBC Differential Differential Comment Sodium Potassium Chloride Carbon Dioxide Anion Gap BUN Creatinine Estimated GFR POC Glucose 346 H 256 H 173 H Random Glucose Calcium Vancomycin Trough 05/13/18 05/13/18 05/13/18 05:21 05:21 08:17 WBC 6.0 RBC 3.69 L Hgb 7.3 L Hct 23.5 L MCV 63.8 L MCH 19.8 L MCHC 31.0 L RDW 17.3 H Plt Count 456 H D MPV 7.1 Neut % (Auto) 71.1 H Lymph % (Auto) 21.8 [place] % (Auto) 6.3 Eos % (Auto) 0.5 Baso % (Auto) 0.3 Neut # (Auto) 4.3 Lymph # (Auto) 1.3 [place] # (Auto) 0.4 Eos # (Auto) 0.0 Baso # (Auto) 0.0 WBC Differential . Differential Comment Auto diff final Sodium 136 Potassium 3.5 Chloride 99 Carbon Dioxide 31.7 Anion Gap 5 BUN 11 Creatinine 0.48 L Estimated GFR Greater than 89 POC Glucose 98 Random Glucose 75 Calcium 8.2 L Vancomycin Trough 05/13/18 05/13/18 12:00 12:52 WBC RBC Hgb Hct MCV MCH MCHC RDW Plt Count MPV Neut % (Auto) Lymph % (Auto) [place] % (Auto) Eos % (Auto) Baso % (Auto) Neut # (Auto) Lymph # (Auto) [place] # (Auto) Eos # (Auto) Baso # (Auto) WBC Differential Differential Comment Sodium Potassium Chloride Carbon Dioxide Anion Gap BUN Creatinine Estimated GFR POC Glucose 162 H Random Glucose Calcium Vancomycin Trough 11.7 H Microbiology 05/12/18 09:35 Abscess - Hip Gram Stain - Final 05/12/18 09:35 Abscess - Hip Wound Culture - Preliminary Staphylococcus aureus 05/10/18 20:31 Blood - Peripheral Aerobic Blood Culture - Preliminary No growth in 3 days 05/10/18 20:31 Blood - Peripheral Anaerobic Blood Culture - Preliminary No growth in 3 days 05/10/18 20:21 Blood - Peripheral Aerobic Blood Culture - Preliminary No growth in 3 days 05/10/18 20:21 Blood - Peripheral Anaerobic Blood Culture - Preliminary No growth in 3 days 05/10/18 20:10 Clean Catch Urine Urine Culture - Final Pseudomonas aeruginosa Assessment and Plan - Assessment and Plan 42-year-old IVDU female with osteomyelitis of the right hip with significant joint destruction Plan: Transfer in progress to [place] for definitive management of her right hip osteomyelitis. Patient should continue antibiotics per medicine and infectious disease.
[2018-05-13] MEDS: Zolpidem Tartrate 5 MG Tablet PO PRN (21:47)
[2018-05-14] MEDS: Sod Chloride 0.9% Inj 1,000 ML IV.CONT SCH ×2 (01:45→13:56)
[2018-05-14] MEDS: Morphine Inj 4 MG/ML Vial IV.PUSH PRN ×4 (04:14→18:52)
[2018-05-14] MEDS: Insulin NovoLIN Regular Correctional Sugar Inj SQ SCH ×4 (04:15→17:55)
[2018-05-14 06:20] LABS: Baso % (Auto) 0.9 % (0.0-2.0); Eos # (Auto) 0.1 th/mm3 (0.0-0.4); Eos % (Auto) 1.4 % (0.0-4.0); Hematocrit 21.1 % (35.0-46.0); Lymph # (Auto) 1.4 th/mm3 (1.0-4.8); Lymph % (Auto) 31.4 % (9.0-44.0); Mean Corpuscular Hemoglobin 19.6 pg (27.0-34.0); Mean Corpuscular Volume 64.3 fL (80.0-100.0); Mono # (Auto) 0.4 th/mm3 (0.0-0.9); Mono % (Auto) 8.3 % (0.0-8.0); Neut # (Auto) 2.6 th/mm3 (1.8-7.7); Platelet Count 443 th/mm3 (150-450); Red Blood Count 3.28 mil/mm3 (4.00-5.30); Red Cell Distribution Width 17.4 % (11.6-17.2); White Blood Count 4.5 th/mm3 (4.0-11.0)
[2018-05-14 06:22] LABS: Mean Corpuscular HGB Conc 30.5 % (32.0-36.0)
[2018-05-14 06:25] LABS: Hemoglobin 6.4 gm/dL (11.6-15.3)
[2018-05-14] MEDS ORDERED: Sodium Chlor 0.9% Inj 250 ML IV.SIG SCH (07:00)
[2018-05-14] MEDS: Senna/Docusate Sodium 8.6/50 MG Tablet PO SCH (08:34)
[2018-05-14] MEDS: Heparin - SQ 10,000 UNITS/ML Vial SQ SCH (08:34)
[2018-05-14] MEDS ORDERED: Methadone 10 MG Tablet PO SCH (09:00)
[2018-05-14] MEDS ORDERED: Ferrous Sulfate 325 MG Tablet PO SCH (09:00)
[2018-05-14 09:37] VITALS: RESP 18
[2018-05-14 09:39] LABS: % Iron Saturation 5.9 % (20-50)
[2018-05-14] MEDS: Vancomycin Inj 750 MG in Sodium Chlor 0.9% Inj 250 ML IV.SIG SCH (10:17)
--- NOTE | 2018-05-14 10:45 | P.PNFP ---
Subjective Interval history: Patient continues to complain of pain. States methadone is not doing anything for her. Wants morphine more frequently Upon arrival to her room before speaking with the patient She was walking from the bed to the chair, showing no evidence of pain or limping Blood pressures was elevated along with tachycardia during the daytime yesterday No chest pain, shortness of breath, fatigue or lightheadedness No signs of drowsiness or sedation <Steffany Miller N - 05/14/18 10:45> Results - Labs Result diagrams: 05/14/18 04:21 05/13/18 05:21 <Andres Martinez - 05/14/18 16:07> Abnormal lab results 05/13/18 05/13/18 05/14/18 Range/Units 16:51 20:21 04:13 RBC (4.00-5.30) mil/mm3 Hgb (11.6-15.3) gm/dL Hct (35.0-46.0) % MCV (80.0-100.0) fL MCH (27.0-34.0) pg MCHC (32.0-36.0) % RDW (11.6-17.2) % Mineral % (Auto) (0.0-8.0) % POC Glucose 133 H 186 H 121 H (68-110) mg/dl Iron (50-170) mcg/dL TIBC (250-450) mcg/dL % Saturation (20-50) % MTS Gel Crossmatch 05/14/18 05/14/18 05/14/18 Range/Units 04:21 07:51 07:51 RBC 3.28 L (4.00-5.30) mil/mm3 Hgb 6.4 L* (11.6-15.3) gm/dL Hct 21.1 L (35.0-46.0) % MCV 64.3 L (80.0-100.0) fL MCH 19.6 L (27.0-34.0) pg MCHC 30.5 L (32.0-36.0) % RDW 17.4 H (11.6-17.2) % Mineral % (Auto) 8.3 H (0.0-8.0) % POC Glucose (68-110) mg/dl Iron 12 L (50-170) mcg/dL TIBC 203 L (250-450) mcg/dL % Saturation 5.9 L (20-50) % MTS Gel Crossmatch See Detail 05/14/18 05/14/18 Range/Units 08:38 12:14 RBC (4.00-5.30) mil/mm3 Hgb (11.6-15.3) gm/dL Hct (35.0-46.0) % MCV (80.0-100.0) fL MCH (27.0-34.0) pg MCHC (32.0-36.0) % RDW (11.6-17.2) % Mineral % (Auto) (0.0-8.0) % POC Glucose 174 H 136 H (68-110) mg/dl Iron (50-170) mcg/dL TIBC (250-450) mcg/dL % Saturation (20-50) % MTS Gel Crossmatch Short CBC 05/14/18 Range/Units 04:21 WBC 4.5 (4.0-11.0) th/mm3 Hgb 6.4 L* (11.6-15.3) gm/dL Hct 21.1 L (35.0-46.0) % Plt Count 443 (150-450) th/mm3 <Andres Martinez - 05/14/18 16:07> Abnormal lab results 05/13/18 05/13/18 05/13/18 Range/Units 12:00 12:52 16:51 RBC (4.00-5.30) mil/mm3 Hgb (11.6-15.3) gm/dL Hct (35.0-46.0) % MCV (80.0-100.0) fL MCH (27.0-34.0) pg MCHC (32.0-36.0) % RDW (11.6-17.2) % Mineral % (Auto) (0.0-8.0) % POC Glucose 162 H 133 H (68-110) mg/dl Iron (50-170) mcg/dL TIBC (250-450) mcg/dL % Saturation (20-50) % Vancomycin Trough 11.7 H (5.0-10.0) mcg/mL MTS Gel Crossmatch 05/13/18 05/14/18 05/14/18 Range/Units 20:21 04:13 04:21 RBC 3.28 L (4.00-5.30) mil/mm3 Hgb 6.4 L* (11.6-15.3) gm/dL Hct 21.1 L (35.0-46.0) % MCV 64.3 L (80.0-100.0) fL MCH 19.6 L (27.0-34.0) pg MCHC 30.5 L (32.0-36.0) % RDW 17.4 H (11.6-17.2) % Mineral % (Auto) 8.3 H (0.0-8.0) % POC Glucose 186 H 121 H (68-110) mg/dl Iron (50-170) mcg/dL TIBC (250-450) mcg/dL % Saturation (20-50) % Vancomycin Trough (5.0-10.0) mcg/mL MTS Gel Crossmatch 05/14/18 05/14/18 05/14/18 Range/Units 07:51 07:51 08:38 RBC (4.00-5.30) mil/mm3 Hgb (11.6-15.3) gm/dL Hct (35.0-46.0) % MCV (80.0-100.0) fL MCH (27.0-34.0) pg MCHC (32.0-36.0) % RDW (11.6-17.2) % Mineral % (Auto) (0.0-8.0) % POC Glucose 174 H (68-110) mg/dl Iron 12 L (50-170) mcg/dL TIBC 203 L (250-450) mcg/dL % Saturation 5.9 L (20-50) % Vancomycin Trough (5.0-10.0) mcg/mL MTS Gel Crossmatch See Detail Short CBC 05/14/18 Range/Units 04:21 WBC 4.5 (4.0-11.0) th/mm3 Hgb 6.4 L* (11.6-15.3) gm/dL Hct 21.1 L (35.0-46.0) % Plt Count 443 (150-450) th/mm3 <Abid R2,Steffany N - 05/14/18 10:45> Physical Exam Vital signs: Vital Signs 05/13/18 20:00 05/14/18 00:00 05/14/18 04:00 Temperature 99.7 F H 98.3 F 98.2 F Pulse Rate 96 H 97 H 81 Respiratory Rate 17 17 17 Blood Pressure 145/72 H 121/84 127/72 Pulse Oximetry 100 100 100 05/14/18 08:00 05/14/18 12:00 05/14/18 13:50 Temperature 98.1 F 98 F 97.8 F Pulse Rate 94 H 94 H 80 Respiratory Rate 18 18 18 Blood Pressure 129/77 122/67 119/74 Pulse Oximetry 98 97 97 05/14/18 14:10 Temperature 97.2 F L Pulse Rate 89 Respiratory Rate 18 Blood Pressure 116/69 Pulse Oximetry 97 Intake & Output 05/13/18 05/14/18 05/14/18 18:59 06:59 18:59 Intake Total 508.5 / 508.5 1477.5 / 1477.5 407.5 / 407.5 Output Total 1200 / 1200 Balance -691.5 / -691.5 1477.5 / 1477.5 407.5 / 407.5 Weight 46 kg Intake: IV 508.5 / 508.5 1357.5 / 1357.5 407.5 / 407.5 NS Inj 1,000 ML @ 80 mls/hr IV. 141 / 141 1000 / 1000 CONT .[id number] RENU Rx#:[id number] Maxipime Inj 2,000 MG In NS Inj 110 / 110 100 / 100 100 / 100 100 ML @ 200 mls/hr IV.SIG Q8H RENU Rx#:[id number] Vancomycin Inj 750 MG In NS Inj 257.5 / 257.5 257.5 / 257.5 257.5 / 257.5 250 ML @ 250 mls/hr IV.SIG Q12H RENU Rx#:[id number] Ancef 2 GM Premix Inj 2 gm In 50 / 50 50 ml @ 100 mls/hr IV.SIG Q8H RENU Rx#:[id number] Oral 120 / 120 Intake (Blood Product) Amt 0 / 0 Rbc As-3 Leukoreduced Unit 0 / 0 [id number] Output: Urine 1200 / 1200 Other: # Voids 200 Date of Last Bowel Movement 05/13/18 05/14/18 # Bowel Movements 1 0 <Andres Martinez - 05/14/18 16:07> Vital Signs 05/13/18 12:00 05/13/18 16:00 05/13/18 20:00 Temperature 97.8 F 99.0 F 99.7 F H Pulse Rate 102 H 110 H 96 H Respiratory Rate 15 17 17 Blood Pressure 142/78 H 151/91 H 145/72 H Pulse Oximetry 100 100 100 05/14/18 00:00 05/14/18 04:00 05/14/18 08:00 Temperature 98.3 F 98.2 F 98.1 F Pulse Rate 97 H 81 94 H Respiratory Rate 17 17 18 Blood Pressure 121/84 127/72 129/77 Pulse Oximetry 100 100 98 Intake & Output 05/13/18 05/14/18 05/14/18 18:59 06:59 18:59 Intake Total 508.5 / 508.5 1477.5 / 1477.5 100 / 100 Output Total 1200 / 1200 Balance -691.5 / -691.5 1477.5 / 1477.5 100 / 100 Weight 46 kg Intake: IV 508.5 / 508.5 1357.5 / 1357.5 100 / 100 NS Inj 1,000 ML @ 80 mls/hr IV. 141 / 141 1000 / 1000 CONT .[id number] RENU Rx#:[id number] Maxipime Inj 2,000 MG In NS Inj 110 / 110 100 / 100 100 / 100 100 ML @ 200 mls/hr IV.SIG Q8H RENU Rx#:[id number] Vancomycin Inj 750 MG In NS Inj 257.5 / 257.5 257.5 / 257.5 250 ML @ 250 mls/hr IV.SIG Q12H RENU Rx#:[id number] Oral 120 / 120 Output: Urine 1200 / 1200 Other: # Voids 200 Date of Last Bowel Movement 05/13/18 05/14/18 # Bowel Movements 1 0 <Abid R2Steffany N - 05/14/18 10:45> Narrative: General: Frail, cachectic appearing female somewhat disheveled sitting in chair in no acute distress, but she becomes tearful when talking about her pain. HEENT: Normocephalic, pupils equal, round, reactive to light with moist mucous membranes. Extensive decay dentition. CV: Regular rate and rhythm Pulmonary: Clear to auscultation bilaterally MSK: Swelling of the right leg. Sensation appears to be intact in the entire leg. Motor is intact. No ecchymosis evident. <Gretchen Steffany Jaquez Aaron - 05/14/18 10:45> Assessment and Plan - Assessment (1) Hip osteomyelitis, right Code(s): M86.9 - Osteomyelitis, unspecified Status: Acute (2) Sepsis Code(s): A41.9 - Sepsis, unspecified organism Status: Acute (3) Pseudomonas urinary tract infection Code(s): N39.0 - Urinary tract infection, site not specified; B96.5 - Pseudomonas (aeruginosa) (mallei) (pseudomallei) as the cause of diseases classified elsewhere Status: Acute (4) Polysubstance abuse Code(s): F19.10 - Other psychoactive substance abuse, uncomplicated Status: Acute (5) Diabetes Code(s): E11.9 - Type 2 diabetes mellitus without complications Status: Acute (6) History of bacterial endocarditis Code(s): Z86.79 - Personal history of other diseases of the circulatory system Status: Acute (7) Nutrition, metabolism, and development symptoms Code(s): R63.8 - Other symptoms and signs concerning food and fluid intake Status: Acute (8) DVT prophylaxis Status: Acute <Andres Martinez - 05/14/18 16:07> (1) Hip osteomyelitis, right Code(s): M86.9 - Osteomyelitis, unspecified Status: Acute Plan: 42-year-old IVDU female with a h/o of mitral valve endocarditis, noncompliance, leaving AMA, p/w significant destruction of right hip joint, likely osteomyelitis, and recent diagnosis of bacteremia and endocarditis due to staph aureus. Patient is postop day 2 status post uncomplicated right hip aspiration. Aspiration yielded significant red blood cells as well as over 31,000 nucleated cells and neutrophils. PLAN: -Per surgery patient will need to be transferred to higher level of care for extensive surgical management. Patient prefers to be transferred to in [place] location. Medical team will arrange transfer. -Blood cultures (05/10) show NGTD -Afebrile, no leukocytosis IV antibiotics: Vancomycin (05/10) Cefepime (05/10): Continue due to concurrent UTI with susceptible pseudomonas Physical therapy recommended PT at rehab Pain control: -Tylenol -Continue methadone. Increase scheduled dosage to 30 mg twice daily, with as needed twice daily 10 mg -Continue morphine 4 mg IV every 4 hours as needed for breakthrough pain (2) Sepsis Code(s): A41.9 - Sepsis, unspecified organism Status: Acute Plan: Treatment plan as above; see plan for right hip osteomyelitis (3) Pseudomonas urinary tract infection Code(s): N39.0 - Urinary tract infection, site not specified; B96.5 - Pseudomonas (aeruginosa) (mallei) (pseudomallei) as the cause of diseases classified elsewhere Status: Acute Plan: Urine culture from 05/10 grew pseudomonas -Continue Cefepime (05/10) (4) Polysubstance abuse Code(s): F19.10 - Other psychoactive substance abuse, uncomplicated Status: Acute Plan: Patient with known IV drug use, recently using heroin and other opiates -Toxicology screen positive for opiates and cocaine Placed on methadone 10 mg every 12 hours scheduled -Methadone 10 mg every 12 hours as needed for agitation -Morphine 4 mg IV every 4 hours as needed for breakthrough pain -Haldol 1 mg as needed for severe agitation (5) Diabetes Code(s): E11.9 - Type 2 diabetes mellitus without complications Status: Acute Plan: -Low-dose sliding scale insulin (6) History of bacterial endocarditis Code(s): Z86.79 - Personal history of other diseases of the circulatory system Status: Acute Plan: Blood cultures show from 05/10/18 show NGTD Infectious disease consulted -Recent blood cultures positive for MSSA on 05/03 and 05/04 with clear blood cultures from 05/05 and 05/06 while on Ancef. Patient left the hospital AMA without adequate treatment -ID on board Patient current IV antibiotics: Vancomycin (05/10) Cefepime (05/10): Continue due to concurrent UTI with susceptible pseudomonas (7) Nutrition, metabolism, and development symptoms Code(s): R63.8 - Other symptoms and signs concerning food and fluid intake Status: Acute Plan: Fluids: Not indicated at this time Electrolytes: Replete as needed Nutrition: Regular diet DVT prophylaxis: Heparin subcu Add Ensure supplementation with meals (8) DVT prophylaxis Status: Acute Plan: Heparin subcu <Steffany Miller N - 05/14/18 10:33> - Assessment and Plan Discharge Planning: Plan for transfer to [place]. Will speak with ID about recommendations in the interim. Spoke with case management about setting up transfer, waiting to hear back <Gretchen Steffany Jaquez Aaron - 05/14/18 10:45> - Attending Attestation Patient case discussed with resident physicians I have independently examined the patient I have read the above note and agree with the assessment and plan as discussed with me I was involved in all medical decision making for this patient MSSA bacteremia/endocarditis: - Inadequately treated on several occasions due to patient leaving AMA - Current blood cultures are negative - Continue IV antibiotics with Ancef for a total of 6 weeks, infectious disease following Pseudomonas urinary tract infection: - Sensitivities posted, switch to p.o. Levaquin Osteomyelitis of right hip: - Complex surgical management given severity of osteomyelitis and concommitment systemic infection - Interventional radiology status post aspiration of the right hip with pathology pending, cultures from the right hip growing MSSA - Orthopedics recommend transfer to tertiary center for staged surgery, resection of infected material with antibiotic impregnated spacer placed prior to reconstruction of the hip following treatment of systemic infection - I have discussed the case with Dr. Christopher Lomeli of orthopedics at [facility] who has agreed to evaluate patient and treat as deemed necessary. Patient will be admitted to medicine with Dr. Vela. Case management is working on transfer of patient at this time Opiate addiction and IV drug use: - Long history of polysubstance abuse both IV and intranasal/inhaled - Currently on methadone 30 mg p.o. twice daily - Morphine 4 mg as needed for breakthrough pain Anemia: -Acute on chronic anemia being transfused 2 units PRBCs today Andres Martinez MD <Andres Martinez - 05/14/18 16:05>
--- NOTE | 2018-05-14 11:35 | P.PNID ---
Subjective Remarks: Patient notes weakness in her right leg. Awake and responsive. She looks drowsy. Denies chills. Afebrile. Hip aspirate culture has MSSA. Urine culture has Pseudomonas. This is a 42-year-old white female who has been diagnosed with endocarditis. The patient has had positive blood cultures with the last culture revealing Staph aureus(MSSA) on 05/03/2018. It was anticipated that the patient would need 6 weeks of IV antibiotics for treatment of endocarditis. Endocarditis was highly suspected. She did have a negative TTE during that hospitalization. The patient has been known to sign out against medical advice multiple times in the past, rather than go through treatment for infection. She signed out against medical advice on 05/09/2018. She began to have pain in her right hip and presented to the emergency department again because she was having difficulty walking. She is known to be an IV drug user. Blood cultures have been repeated. Evaluation of the hip included hip x-ray, which showed evidence of acute fracture involving the right acetabulum with superior migration of the right femoral head and deformity involving the superior-lateral aspect of the femoral head raising possibility of osteonecrosis or possible osteomyelitis. The patient reports that she has been having hip pain for approximately 2 months. Sedimentation rate is greater than 140. She is afebrile. Past Medical History: Endocarditis, hepatitis C, IV drug, CVA, hand surgery, laceration of the kidney. Allergies/Adverse Reactions: Allergies No Known Allergies Allergy (Verified 05/10/18 18:14) Objective Vital Signs 05/13/18 12:00 05/13/18 16:00 05/13/18 20:00 Temperature 97.8 F 99.0 F 99.7 F H Pulse Rate 102 H 110 H 96 H Respiratory Rate 15 17 17 Blood Pressure 142/78 H 151/91 H 145/72 H Pulse Oximetry 100 100 100 05/14/18 00:00 05/14/18 04:00 05/14/18 08:00 Temperature 98.3 F 98.2 F 98.1 F Pulse Rate 97 H 81 94 H Respiratory Rate 17 17 18 Blood Pressure 121/84 127/72 129/77 Pulse Oximetry 100 100 98 Intake & Output 05/13/18 05/14/18 05/14/18 18:59 06:59 18:59 Intake Total 508.5 / 508.5 1477.5 / 1477.5 357.5 / 357.5 Output Total 1200 / 1200 Balance -691.5 / -691.5 1477.5 / 1477.5 357.5 / 357.5 Weight 46 kg Intake: IV 508.5 / 508.5 1357.5 / 1357.5 357.5 / 357.5 NS Inj 1,000 ML @ 80 mls/hr IV. 141 / 141 1000 / 1000 CONT .[id number] RENU Rx#:[id number] Maxipime Inj 2,000 MG In NS Inj 110 / 110 100 / 100 100 / 100 100 ML @ 200 mls/hr IV.SIG Q8H RENU Rx#:[id number] Vancomycin Inj 750 MG In NS Inj 257.5 / 257.5 257.5 / 257.5 257.5 / 257.5 250 ML @ 250 mls/hr IV.SIG Q12H RENU Rx#:[id number] Oral 120 / 120 Output: Urine 1200 / 1200 Other: # Voids 200 Date of Last Bowel Movement 05/13/18 05/14/18 # Bowel Movements 1 0 05/10/18 20:31 Blood - Peripheral Aerobic Blood Culture - Preliminary No growth in 4 days 05/10/18 20:31 Blood - Peripheral Anaerobic Blood Culture - Preliminary No growth in 4 days 05/10/18 20:21 Blood - Peripheral Aerobic Blood Culture - Preliminary No growth in 4 days 05/10/18 20:21 Blood - Peripheral Anaerobic Blood Culture - Preliminary No growth in 4 days 05/12/18 09:35 Abscess - Hip Gram Stain - Final 05/12/18 09:35 Abscess - Hip Wound Culture - Final Staphylococcus aureus 05/10/18 20:10 Clean Catch Urine Urine Culture - Final Pseudomonas aeruginosa Lab - Hematology Results 05/13/18 05/14/18 05:21 04:21 WBC 6.0 4.5 RBC 3.69 L 3.28 L Hgb 7.3 L 6.4 L* Hct 23.5 L 21.1 L MCV 63.8 L 64.3 L MCH 19.8 L 19.6 L MCHC 31.0 L 30.5 L RDW 17.3 H 17.4 H Plt Count 456 H D 443 MPV 7.1 7.0 Prelim Diff (Auto) Fur Stretcher Neut % (Auto) 71.1 H 58.0 Lymph % (Auto) 21.8 31.4 [place] % (Auto) 6.3 8.3 H Eos % (Auto) 0.5 1.4 Baso % (Auto) 0.3 0.9 Neut # (Auto) 4.3 2.6 Lymph # (Auto) 1.3 1.4 [place] # (Auto) 0.4 0.4 Eos # (Auto) 0.0 0.1 Baso # (Auto) 0.0 0.0 WBC Differential . . Differential Comment Auto diff final Auto diff final Lab - Chemistry Results 05/12/18 05/12/18 05/12/18 12:22 16:47 19:38 Sodium Potassium Chloride Carbon Dioxide Anion Gap BUN Creatinine Estimated GFR POC Glucose 197 H 346 H 256 H Random Glucose Calcium Iron TIBC % Saturation 05/13/18 05/13/18 05/13/18 02:51 05:21 08:17 Sodium 136 Potassium 3.5 Chloride 99 Carbon Dioxide 31.7 Anion Gap 5 BUN 11 Creatinine 0.48 L Estimated GFR Greater than 89 POC Glucose 173 H 98 Random Glucose 75 Calcium 8.2 L Iron TIBC % Saturation 05/13/18 05/13/18 05/13/18 12:52 16:51 20:21 Sodium Potassium Chloride Carbon Dioxide Anion Gap BUN Creatinine Estimated GFR POC Glucose 162 H 133 H 186 H Random Glucose Calcium Iron TIBC % Saturation 05/14/18 05/14/18 05/14/18 04:13 07:51 08:38 Sodium Potassium Chloride Carbon Dioxide Anion Gap BUN Creatinine Estimated GFR POC Glucose 121 H 174 H Random Glucose Calcium Iron 12 L TIBC 203 L % Saturation 5.9 L Imaging: ITS Impressions Hip X-Ray 05/10/18 19:16 CONCLUSION: Evidence of acute fracture involving the right acetabulum with superior migration of the right femoral head and deformity involving the superolateral aspect of the femoral head raising possibility of osteonecrosis or possible osteomyelitis. Significant arthritic changes and joint space narrowing have developed within the superior lateral aspect of the right hip. The entire process has demonstrated a fairly rapid development as previous films of the right hip in February 2018 demonstrated none of these findings. Hip CT 05/11/18 00:00 CONCLUSION: 1. Findings consistent with advanced right hip septic arthritis. There is advanced destructive changes of the right femur and acetabulum with associated joint abscess which extends medially and inferiorly through the obturator muscle. There is also associated pathologic fracture of the medial acetabular roof. Hip Aspiration/Injection 05/12/18 00:00 CONCLUSION: 1. Uncomplicated aspiration as above. Physical Exam: PHYSICAL EXAMINATION: GENERAL: Awake and alert. No distress. HEENT: The head is atraumatic. Extraocular movements grossly intact. Pupils reactive to light. No icterus. Oropharynx: Moist mucosa. Poor dentition. NECK: Supple without adenopathy. LUNGS: Clear breath sounds. HEART: Regular S1, S2. No murmurs heard. ABDOMEN: Bowel sounds present. Soft. No tenderness appreciated. EXTREMITIES: Right hip is tender on palpation, and also the right groin is tender. There is no erythema. No induration. SKIN: No rash. NEUROLOGIC: No gross focal findings. PSYCHIATRIC: Calm and cooperative. Assessment and Plan - Plan ASSESSMENT AND PLAN: 1. 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 The patient noncompliant with prior treatments. It was recommended that she receive 6 weeks of IV antibiotics before she left the hospital against medical advice. She now has changes of the right hip which may be due to infection. She has had history of mitral valve endocarditis before. 2. Osteomyelitis/septic arthritis of the right hip - MSSA. 3. IV drug abuse. RECOMMENDATIONS: 1. Begin cefazolin IV 2. Discontinue cefepime. 3. Discontinue vancomycin. 4. Give p.o. Levaquin for Pseudomonas UTI. Discussed with medical attending. Plans for transfer to [facility] for hip surgery. Above antibiotic changes have been made. Patient is cleared for transfer from ID standpoint.
[2018-05-14] MEDS ORDERED: ceFAZolin Inj 2,000 MG in Sodium Chlor 0.9% Inj 80 ML IV.SIG SCH (12:00)
[2018-05-14] MEDS ORDERED: levoFLOXacin 750 MG Tablet PO SCH (12:00)
[2018-05-14] MEDS ORDERED: ceFAZolin 2 GM Premix Inj 2 GM/50 ML PIGGYBACK IV.SIG SCH (13:00)
--- NOTE | 2018-05-14 14:44 | P.DS ---
Date of admission: 05/10/18 20:43 Primary care physician: No Primary Care Physician Brief History from admission: Patient evaluated on morning medical rounds with resident team. She continues to complain of severe right hip pain that is worse with any type of movement or weightbearing. She states that the hip pain has been going on for approximately 1 month but has become significantly worse over the last week. She no longer is able to ambulate without the assistance of a walker. She does endorse occasional chills and subjective fevers associated with this pain. She denies chest pain, denies palpitations, denies shortness of breath, denies nausea or vomiting. She is a known IV drug user with frequent hospitalizations for complications from her IV drug use and initiation for treatment of bacterial endocarditis on several occasions, frequently leaving AMA without adequate treatment. She was most recently hospitalized from 05/03/18 through 05/09/18 where she was being treated for bacteremia and endocarditis with MSSA verified on blood cultures. She was taking Ancef but left AMA on the morning of 05/09/18. She states that since she left the hospital, she has only snorted $5 worth of heroin but has not taken anything through the IV or injections. DS: Diagnosis - Discharge Diagnosis (1) Hip osteomyelitis, right Status: Acute (2) Sepsis Status: Acute (3) Pseudomonas urinary tract infection Status: Acute (4) Polysubstance abuse Status: Acute (5) Diabetes Status: Acute (6) History of bacterial endocarditis Status: Acute (7) Nutrition, metabolism, and development symptoms Status: Acute (8) DVT prophylaxis Status: Acute DS: Summary Hospital Course: MSSA bacteremia/endocarditis (per previous blood cx): - Inadequately treated on several occasions due to patient leaving AMA - Current blood cultures are negative - Continue IV antibiotics with Ancef for a total of 6 weeks, infectious disease assisted in managing. Pseudomonas urinary tract infection: - Sensitivities posted from urine cx 05/10. Has had 5 days of IV cefepime treatment. Osteomyelitis of right hip: - Complex surgical management given severity of osteomyelitis and concomitant systemic infection - Interventional radiology status post aspiration of the right hip 05/12 with pathology pending, cultures from the right hip growing MSSA - Orthopedics recommend transfer to tertiary center for staged surgery, resection of infected material with antibiotic impregnated spacer placed prior to reconstruction of the hip following treatment of systemic infection Opiate addiction and IV drug use: - Long history of polysubstance abuse both IV and intranasal/inhaled - Currently on methadone 30 mg p.o. twice daily with methadone 10 mg BID PRN for severe pain - Morphine 4 mg as needed for breakthrough pain Anemia: -Acute on chronic anemia, being transfused 1 unit PRBCs today - Time Spent with Patient Total time spent providing and/or coordinating discharge services: Greater than 30 minutes - Quality: VTE Deep Vein Thrombosis/Pulmonary Embolism Present on Admission: No Exam Vital signs: Vital Signs 05/13/18 16:00 05/13/18 20:00 05/14/18 00:00 Temperature 99.0 F 99.7 F H 98.3 F Pulse Rate 110 H 96 H 97 H Respiratory Rate 17 17 17 Blood Pressure 151/91 H 145/72 H 121/84 Pulse Oximetry 100 100 100 05/14/18 04:00 05/14/18 08:00 05/14/18 12:00 Temperature 98.2 F 98.1 F 98 F Pulse Rate 81 94 H 94 H Respiratory Rate 17 18 18 Blood Pressure 127/72 129/77 122/67 Pulse Oximetry 100 98 97 05/14/18 13:50 05/14/18 14:10 Temperature 97.8 F 97.2 F L Pulse Rate 80 89 Respiratory Rate 18 18 Blood Pressure 119/74 116/69 Pulse Oximetry 97 97 Intake & Output 05/13/18 05/14/18 05/14/18 18:59 06:59 18:59 Intake Total 508.5 / 508.5 1477.5 / 1477.5 407.5 / 407.5 Output Total 1200 / 1200 Balance -691.5 / -691.5 1477.5 / 1477.5 407.5 / 407.5 Weight 46 kg Intake: IV 508.5 / 508.5 1357.5 / 1357.5 407.5 / 407.5 NS Inj 1,000 ML @ 80 mls/hr IV. 141 / 141 1000 / 1000 CONT .[id number] RENU Rx#:[id number] Maxipime Inj 2,000 MG In NS Inj 110 / 110 100 / 100 100 / 100 100 ML @ 200 mls/hr IV.SIG Q8H RENU Rx#:[id number] Vancomycin Inj 750 MG In NS Inj 257.5 / 257.5 257.5 / 257.5 257.5 / 257.5 250 ML @ 250 mls/hr IV.SIG Q12H RENU Rx#:[id number] Ancef 2 GM Premix Inj 2 gm In 50 / 50 50 ml @ 100 mls/hr IV.SIG Q8H RENU Rx#:[id number] Oral 120 / 120 Intake (Blood Product) Amt 0 / 0 Rbc As-3 Leukoreduced Unit 0 / 0 [id number] Output: Urine 1200 / 1200 Other: # Voids 200 Date of Last Bowel Movement 05/13/18 05/14/18 # Bowel Movements 1 0 Narrative: General: Frail, cachectic appearing female somewhat disheveled sitting in chair in no acute distress, but she becomes tearful when talking about her pain. HEENT: Normocephalic, pupils equal, round, reactive to light with moist mucous membranes. Extensive decay dentition. CV: Regular rate and rhythm Pulmonary: Clear to auscultation bilaterally MSK: Swelling of the right leg. Sensation appears to be intact in the entire leg. Motor is intact. No ecchymosis evident. Results Procedures completed during hospitalization: Hip aspiration 05/12 Labs on day of discharge: Labs from last 24 hours 05/14/18 05/14/18 05/14/18 12:14 08:38 07:51 WBC RBC Hgb Hct MCV MCH MCHC RDW Plt Count MPV Prelim Diff (Auto) Neut % (Auto) Lymph % (Auto) [place] % (Auto) Eos % (Auto) Baso % (Auto) Neut # (Auto) Lymph # (Auto) [place] # (Auto) Eos # (Auto) Baso # (Auto) WBC Differential Differential Comment POC Glucose 136 H 174 H Iron 12 L TIBC 203 L % Saturation 5.9 L Blood Type Blood Type Recheck Antibody Screen MTS Gel Crossmatch Bld Prod Order Comment 05/14/18 05/14/18 05/14/18 07:51 04:21 04:13 WBC 4.5 RBC 3.28 L Hgb 6.4 L* Hct 21.1 L MCV 64.3 L MCH 19.6 L MCHC 30.5 L RDW 17.4 H Plt Count 443 MPV 7.0 Prelim Diff (Auto) Mortgage Funder Neut % (Auto) 58.0 Lymph % (Auto) 31.4 [place] % (Auto) 8.3 H Eos % (Auto) 1.4 Baso % (Auto) 0.9 Neut # (Auto) 2.6 Lymph # (Auto) 1.4 [place] # (Auto) 0.4 Eos # (Auto) 0.1 Baso # (Auto) 0.0 WBC Differential . Differential Comment Auto diff final POC Glucose 121 H Iron TIBC % Saturation Blood Type A Positive Blood Type Recheck Required Antibody Screen Negative MTS Gel Crossmatch See Detail Bld Prod Order Comment 05/13/18 05/13/18 20:21 16:51 WBC RBC Hgb Hct MCV MCH MCHC RDW Plt Count MPV Prelim Diff (Auto) Neut % (Auto) Lymph % (Auto) [place] % (Auto) Eos % (Auto) Baso % (Auto) Neut # (Auto) Lymph # (Auto) [place] # (Auto) Eos # (Auto) Baso # (Auto) WBC Differential Differential Comment POC Glucose 186 H 133 H Iron TIBC % Saturation Blood Type Blood Type Recheck Antibody Screen MTS Gel Crossmatch Bld Prod Order Comment Preliminary micro results at discharge 05/10/18 20:31 Aerobic Blood Culture - Preliminary Blood - Peripheral No growth in 4 days Anaerobic Blood Culture - Preliminary No growth in 4 days 05/10/18 20:21 Aerobic Blood Culture - Preliminary Blood - Peripheral No growth in 4 days Anaerobic Blood Culture - Preliminary No growth in 4 days - Impressions ITS Impressions Hip X-Ray 05/10/18 19:16 CONCLUSION: Evidence of acute fracture involving the right acetabulum with superior migration of the right femoral head and deformity involving the superolateral aspect of the femoral head raising possibility of osteonecrosis or possible osteomyelitis. Significant arthritic changes and joint space narrowing have developed within the superior lateral aspect of the right hip. The entire process has demonstrated a fairly rapid development as previous films of the right hip in February 2018 demonstrated none of these findings. Hip CT 05/11/18 00:00 CONCLUSION: 1. Findings consistent with advanced right hip septic arthritis. There is advanced destructive changes of the right femur and acetabulum with associated joint abscess which extends medially and inferiorly through the obturator muscle. There is also associated pathologic fracture of the medial acetabular roof. Hip Aspiration/Injection 05/12/18 00:00 CONCLUSION: 1. Uncomplicated aspiration as above. Discharge Plan - Discharge Disposition Patient Disposition: Disch To Another Hospital - Discharge Condition Condition: Stable - Discharge Order Discharge Orders: Discharge Order (Routine); Ordered 05/14/18 Ordered By: Steffany Godinez R2 ED Use Only Admit Order (Routine); Ordered 05/10/18 Ordered By: Britney Wolf - Discharge Details Anticipated Discharge Date: 05/10/18 Discharge Comment: Correction to below. EBONY Mcbride. - Physicians Team Primary Care Provider: Primary Care Mel,Ambika Attending Provider: Andres Martinez Other Providers: Lenore Buchanan MD ; Jonn Bryan MD
[2018-05-14 18:07] VITALS: BP 125/68; PULSE 84; TEMP 97; O2SAT 98
[2018-05-14 18:48] LABS: Hematocrit 26.3 % (35.0-46.0); Hemoglobin 8.3 gm/dL (11.6-15.3)
[2018-05-16] MEDS ORDERED: Pharmacy Ordered Lab Info OTHER ONE (10:45)
== END 2018-05-14 20:57 | disposition short-term general hospital (02) | DRG 871 ==
LOC: NEPB 17:22 → NEDA 20:43 → NEPHCDU 05-11 02:08 → N04 05-11 21:07
PROVIDERS: ADMIT Family Medicine; ATTEND Family Medicine
CPT/HCPCS: 20610; 36430; 73502; 73701; 76937; 77002; 80048; 80053; 80202; 80307; 81001; 82948; 82962; 83540; 83550; 83605; 83735; 84703; 85014; 85018; 85025; 85651; 85652; 86140; 86403; 86850; 86900; 86901; 86923; 87040; 87070; 87077; 87086; 87147; 87186; 87205; 89051; 93005; 97162; 99285; A4646; J0690; J0692; J1644; J1940; J2270; J2405; J3370; J7030; J7050; P9016; Q9950; Q9965; Q9967

== ENCOUNTER 2018-05-19 18:58 | Inpatient (IN) ==
[2018-05-19] MEDS ORDERED: Bisacodyl 10 MG Supp RECTAL PRN (22:39)
[2018-05-19] MEDS ORDERED: Acetaminophen 325 MG Tablet PO PRN (22:39)
[2018-05-19] MEDS ORDERED: Methadone 10 MG Tablet PO PRN (22:43)
[2018-05-19] MEDS ORDERED: Morphine Inj 4 MG/ML Vial IV.PUSH PRN (22:44)
[2018-05-19] MEDS ORDERED: Naloxone Inj 0.4 MG/ML Vial IV.PUSH PRN (22:47)
--- NOTE | 2018-05-19 23:18 | P.HPFP ---
History of Present Illness Primary Care Physician: UNKNOWN <Tip Gtz L - 05/20/18 13:07> UNKNOWN <Steffany Miller N - 05/19/18 23:18> Chief Complaint: Endocarditis <Steffany Miller N - 05/19/18 23:18> History of Present Illness: Patient is a 42-year-old female who is in known IV drug user with frequent hospitalizations for complications secondary to IV drug use presenting to [facility] for continued treatment of endocarditis. Patient was admitted 05/10 for left hip pain which, on imaging, was consistent with extensive osteomyelitis associated with pathologic fracture of the medial acetabular roof. Wound cultures were positive for staph aureus. Infectious disease was consulted for recommendations on the patient, who was initially placed on Vanco and cefepime from 05/10- (3 full days). Patient was then transitioned to IV Ancef the day of discharge. Orthopedic surgery was consulted and advised patient be transferred to a higher level of care to undergo reconstruction surgery. Patient had a prior hospitalization 05/03/18 through 05/09/18 during which she was found to have bacteremia and endocarditis that was MSSA positive on blood cultures. Was placed on IV Ancef but left AMA. Repeat cultures from 05/05-05/07 were negative for growth. Patient has been on IV Ancef since 05/14 and this was continued while at [facility]. Underwent emergent I&D R hip, Girdlestone R hip on 05/[address] Cueva - the procedure was chosen to avoid a complication related to an implant related infection. Tissue culture from 05/16 showed no growth for two days. Advised a ANNA on the patient on return to [place]. Received blood transfusion 05/16 of 2 units PRBCs. For pain control, she was placed on methadone 10 mg TID (was on 30 mg BID previously). Gabapentin 100 mg qHS, Morphine IV PRN, and PO Edgecomb were added for pain control. Patient worked w/PT while inpatient. For DVT prophylaxis , advised Lovenox 40 mg daily for two weeks. Currently, patient endorses labial itching but denies discharge. States that she feels lower, right sided abdominal pain when she coughs. Hip is very painful - she continually asks for morphine. Past medical history: Diabetes Hepatitis C endocarditis Past surgical history: Hand surgery Medications: None Allergies: Patient reports she is allergic to an antibiotic that starts with the letter "d" but this is not reported in our EMR Family history: Mother with hypertension and diabetes Social history: Patient's drugs of choice are heroin,prescription opiate pills, crack, methamphetamine. She has a home currently but reports that she will be kicked out of this home soon. 40 pack year smoker. 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 This includes certification that hospital inpatient services are reasonable and necessary and in the case of services not specified as inpatient-only under 42 CFR 419.22(n), that they are appropriately provided as inpatient services in accordance to with the 2-midnight benchmark under 43 CFR 412.3(e) <UlissesTip Genaro - 05/20/18 13:07> I certify that the inpatient services were ordered in accordance with Medicare regulations governing the order. This includes certification that hospital inpatient services are reasonable and necessary and in the case of services not specified as inpatient-only under 42 CFR 419.22(n), that they are appropriately provided as inpatient services in accordance to with the 2-midnight benchmark under 43 CFR 412.3(e) <Steffany Miller 05/19/18 23:18> Estimated Total Length of Stay (Days): 15 <Steffany Miller 05/19/18 23:18> Plans for Post Hospital Care: Not yet determined <Steffany Miller 05/19/18 23:18> Review of Systems Constitutional: Denies fever(s), Denies increased appetite, Denies night sweats <Steffany Miller 05/20/18 00:41> Eyes: Denies change in vision, Denies irritation <Abid R2,Steffany N 05/20/18 00:41> Ears, Nose, Mouth, and Throat: Denies hearing loss, Denies throat swelling < Abid R2,Steffany N 05/20/18 00:41> Cardiovascular: Denies chest pain <Abid R2,Steffany N 05/20/18 00:41> Respiratory: Denies shortness of breath <Abid R2,Steffany 05/20/18 00:41> Gastrointestinal: Denies abdominal pain, Denies change in bowel habits, Denies constipation, Denies vomiting <Abid R2,Steffany N 05/20/18 00:41> Genitourinary: Denies blood in urine, Denies difficulty urinating, Denies dribbling after urination, Denies painful urination, Denies urinary urgency, Denies vaginal discharge <Abid R2,Steffany N 05/20/18 00:41> Musculoskeletal: Reports joint swelling (right hip) <Abid R2,Steffany 00:41> Skin/Breast: Denies unusual bruising <Abid R2,Steffany 05/20/18 00:41> Neurologic: Reports localized weakness (Difficulty lifting right leg due to pain and weakness), Denies tingling, Denies tingling/numbness/burning sensations <Abid R2,Steffany 05/20/18 00:41> Endocrine: Denies cold intolerance, Denies heat intolerance, Denies increased hunger, Denies increased thirst <Abid R2,Steffany 05/20/18 00:41> Hematologic/Lymphatic: Denies easy bleeding, Denies easy bruising <Abid R2, Steffany 05/20/18 00:41> PMFSH - History History Provided By: Patient, Medical Record <Steffany Miller N - 05/19/18 23: 18> - Medical History Medical History: Medical History (Last Reviewed 05/14/18 @ 08:42 by Marie Bullock) CVA (cerebral vascular accident) Endocarditis Hepatitis C IV drug abuse Laceration of kidney <Tip Gtz - 05/20/18 13:07> Medical History (Last Reviewed 05/14/18 @ 08:42 by Marie Bullock) CVA (cerebral vascular accident) Endocarditis Hepatitis C IV drug abuse Laceration of kidney <Steffany Miller 05/19/18 23:18> - Surgical History Surgical History: Surgical History (Last Reviewed 05/14/18 @ 08:42 by Marie Bullock) Hx of hand surgery <Tip Gtz 05/20/18 13:07> Surgical History (Last Reviewed 05/14/18 @ 08:42 by Marie Bullock) Hx of hand surgery <Setffany Miller 05/19/18 23:18> - Family History Family History: Family History (Last Reviewed 05/11/18 @ 09:38 by Jennifer Encarnacion) Other Family history unknown <Tip Gtz 05/20/18 13:07> Family History (Last Reviewed 05/11/18 @ 09:38 by Jennifer Encarnacion) Other Family history unknown <Steffany Miller 05/19/18 23:18> - Tobacco History Second Hand Smoke Exposure: Yes <Steffany Miller 05/19/18 23:18> Smoking Status: Current every day smoker <Steffany Miller 05/19/18 23:18> Tobacco Type: Cigarettes <Steffany [facility] 05/19/18 23:18> - Alcohol History How Often Do You Have a Drink Containing Alcohol: 2 to 4 times a month <Steffany Miller 05/19/18 23:18> - Substance Use History Substance History: Active Abuse <Steffany Miller [facility] 05/19/18 23:18> Medications and Allergies Allergies Allergy/AdvReac Type Severity Reaction Status Date / Time No Known Allergies Allergy Verified 05/10/18 18:14 <Tip Gtz 05/20/18 13:07> Active Medications: Active Medications Acetaminophen (Tylenol) 650 mg PO Q4H PRN PRN Reason: Temp > 100.4 Hydrocodone Bitart/Acetaminophen (Edgecomb 5/325) 1 tab PO Q4H PRN PRN Reason: pain score 4-6/moderate pain Al Hydroxide/Mg Hydroxide (Milk Of Magnesia Liq) 30 ml PO Q12H PRN PRN Reason: Mild Constipation Bisacodyl (Dulcolax Supp) 10 mg RECTAL DAILY PRN PRN Reason: SEVERE CONSITIPATION Dextrose (D50w Vial) 50 ml IV.PUSH UNSCH PRN PRN Reason: PER HYPOGLYCEMIA PROTOCOL Enoxaparin Sodium (Lovenox Inj) 40 mg SQ DAILY [facility] Last Admin: 05/20/18 09:57 Dose: 40 mg Ferrous Sulfate (Ferosul) 325 mg PO DAILY [facility] Last Admin: 05/20/18 09:56 Dose: 325 mg Gabapentin (Neurontin) 300 mg PO TID [facility] Last Admin: 05/20/18 09:56 Dose: 300 mg Glucagon (Glucagon Inj) 1 mg OTHER PRN PRN PRN Reason: for Hypoglycemia Protocol Cefazolin Sodium/Dextrose (Ancef 2 Gm Premix Inj) 2 gm in 50 mls @ 100 mls/hr IV.SIG Q8H [facility] Ibuprofen (Motrin) 600 mg PO Q6HR PRN PRN Reason: pain 1-3 Insulin Aspart (Novolog Insulin Correctional Sugar Inj) 0 unit SQ ACHS [facility]; Protocol Last Admin: 05/20/18 09:22 Dose: Not Given Lactulose (Lactulose Liq) 30 ml PO DAILY PRN PRN Reason: SEVERE CONSITIPATION Methadone HCl (Dolophine) 10 mg PO Q8H [facility] Last Admin: 05/20/18 09:54 Dose: Not Given Miconazole Nitrate (Monistat 7 Vag Cream) 1 appful VAGINAL HS [facility] Stop: 05/25/18 21:01 Last Admin: 05/20/18 01:49 Dose: 1 appful Morphine Sulfate (Morphine Inj) 4 mg IV.PUSH Q4H PRN PRN Reason: Severe Pain 7-10 Last Admin: 05/20/18 09:55 Dose: 4 mg Naloxone HCl (Narcan Inj) 0.4 mg IV.PUSH UNSCH PRN PRN Reason: SEE LABEL COMMENTS Nicotine (Habitrol 21 Mg Patch.24 Hr) 1 patch T-DERMAL DAILY [facility] Last Admin: 05/20/18 09:58 Dose: 1 patch Ondansetron HCl (Zofran Inj) 4 mg IV.PUSH Q6H PRN PRN Reason: NAUSEA OR VOMITING Patch Removal (Remove Old Patch) 1 each T-DERMAL DAILY [facility] Last Admin: 05/20/18 09:58 Dose: Not Given Senna/Docusate Sodium (Silvia-Colace) 1 tab PO BID [facility] Last Admin: 05/20/18 09:56 Dose: Not Given Sennosides (Senokot) 17.2 mg PO Q12H PRN PRN Reason: Moderate Constipation Sodium Chloride (Ns Flush) 2 ml IV.FLUSH BID [facility] Last Admin: 05/20/18 09:58 Dose: 2 ml Sodium Chloride (Ns Flush) 2 ml IV.FLUSH PRN PRN PRN Reason: FLUSH AFTER USING IV ACCESS Trazodone HCl (Desyrel) 50 mg PO HS PRN PRN Reason: INSOMNIA Last Admin: 05/20/18 01:43 Dose: 50 mg <Tip Gtz L - 05/20/18 13:07> Active Medications Acetaminophen (Tylenol) 650 mg PO Q4H PRN PRN Reason: Temp > 100.4 Al Hydroxide/Mg Hydroxide (Milk Of Magnesia Liq) 30 ml PO Q12H PRN PRN Reason: Mild Constipation Bisacodyl (Dulcolax Supp) 10 mg RECTAL DAILY PRN PRN Reason: SEVERE CONSITIPATION Ferrous Sulfate (Ferosul) 325 mg PO DAILY [facility] Cefazolin Sodium 2,000 mg/ (Sodium Chloride) 100 mls @ 200 mls/hr IV.SIG Q8H [facility] Lactulose (Lactulose Liq) 30 ml PO DAILY PRN PRN Reason: SEVERE CONSITIPATION Methadone HCl (Dolophine) 10 mg PO Q12H PRN PRN Reason: severe agitation/anxiety/pain Morphine Sulfate (Morphine Inj) 4 mg IV.PUSH Q4H PRN PRN Reason: BREAKTHROUGH PAIN Naloxone HCl (Narcan Inj) 0.4 mg IV.PUSH UNSCH PRN PRN Reason: SEE LABEL COMMENTS Ondansetron HCl (Zofran Inj) 4 mg IV.PUSH Q6H PRN PRN Reason: NAUSEA OR VOMITING Senna/Docusate Sodium (Silvia-Colace) 1 tab PO BID [facility] Sennosides (Senokot) 17.2 mg PO Q12H PRN PRN Reason: Moderate Constipation Sodium Chloride (Ns Flush) 2 ml IV.FLUSH BID RENU Sodium Chloride (Ns Flush) 2 ml IV.FLUSH PRN PRN PRN Reason: FLUSH AFTER USING IV ACCESS Trazodone HCl (Desyrel) 50 mg PO HS PRN PRN Reason: INSOMNIA <Steffany Miller N - 05/19/18 23:18> Exam Vital signs: Vital Signs 05/19/18 22:19 05/20/18 00:00 05/20/18 04:00 Temperature 98.4 F 98.4 F 97.9 F Pulse Rate 98 H 107 H 87 Respiratory Rate 18 16 14 Blood Pressure 127/72 137/80 101/61 Pulse Oximetry 100 97 98 05/20/18 05:03 05/20/18 08:00 05/20/18 12:00 Temperature 99.0 F 99.5 F Pulse Rate 97 H 78 94 H Respiratory Rate 16 18 Blood Pressure 131/78 116/62 106/61 Pulse Oximetry 98 96 Intake & Output 05/19/18 05/20/18 05/20/18 18:59 06:59 18:59 Intake Total 1300 / 1300 Balance 1300 / 1300 Weight 41.8 kg Intake: IV 100 / 100 Ancef Inj 2,000 MG In NS Inj 80 100 / 100 ML @ 200 mls/hr IV.SIG Q8H RENU Rx#:[id number] Oral 1200 / 1200 Other: # Voids 800 Date of Last Bowel Movement 05/19/18 Weight On Admission 41.5 kg <Tip Gtz - 05/20/18 13:07> Vital Signs 05/19/18 22:19 Temperature 98.4 F Pulse Rate 98 H Respiratory Rate 18 Blood Pressure 127/72 Pulse Oximetry 100 <Steffany Miller N - 05/19/18 23:18> Narrative: GENERAL: Thin, disheveled woman appearing older than her age reclining in bed in mild distress. Is requesting morphine. HEAD: Atraumatic. Normocephalic. EYES: EOM intact. ENT: No nasal bleeding or discharge. Mucous membranes pink and moist. NECK: Trachea midline. CARDIOVASCULAR: Regular rate and rhythm. RESPIRATORY: No accessory muscle use. Clear to auscultation. Breath sounds equal bilaterally. GASTROINTESTINAL: Abdomen soft, non-tender, nondistended. Hepatic and splenic margins not palpable. : no vaginal discharge, redness, or irritation evident. MUSCULOSKELETAL: Right hip with swelling and redness over the joint. Incision site clean, dry, and intact. NEUROLOGICAL: Awake and alert. No obvious cranial nerve deficits. Normal ROM aside from right hip, which she is unable to move. PSYCHIATRIC: Anxious and irritated but conversant. <Steffany Miller N - 05/20/18 00:41> Results - Labs Result diagrams: 05/20/18 07:51 05/20/18 07:51 <Tip Gtz L - 05/20/18 13:07> Abnormal lab results 05/20/18 05/20/18 05/20/18 Range/Units 06:30 07:51 07:51 RBC 3.89 L (4.00-5.30) mil/mm3 Hgb 8.7 L (11.6-15.3) gm/dL Hct 27.4 L (35.0-46.0) % MCV 70.4 L (80.0-100.0) fL MCH 22.5 L (27.0-34.0) pg MCHC 31.9 L (32.0-36.0) % RDW 24.1 H (11.6-17.2) % MPV 6.9 L (7.0-11.0) fL [place] % (Auto) 9.9 H (0.0-8.0) % Carbon Dioxide 33.7 H (21.0-32.0) meq/L Anion Gap 4 L (5-15) meq/L Creatinine 0.49 L (0.50-1.00) mg/dL POC Glucose (68-110) mg/dl Albumin 1.8 L (3.4-5.0) g/dL Ur Leukocyte Esterase Trace H (Negative) Urine Bacteria Rare H (None) /hpf 05/20/18 05/20/18 Range/Units 08:13 12:59 RBC (4.00-5.30) mil/mm3 Hgb (11.6-15.3) gm/dL Hct (35.0-46.0) % MCV (80.0-100.0) fL MCH (27.0-34.0) pg MCHC (32.0-36.0) % RDW (11.6-17.2) % MPV (7.0-11.0) fL [place] % (Auto) (0.0-8.0) % Carbon Dioxide (21.0-32.0) meq/L Anion Gap (5-15) meq/L Creatinine (0.50-1.00) mg/dL POC Glucose 127 H 161 H (68-110) mg/dl Albumin (3.4-5.0) g/dL Ur Leukocyte Esterase (Negative) Urine Bacteria (None) /hpf Short CBC 05/20/18 Range/Units 07:51 WBC 6.0 (4.0-11.0) th/mm3 Hgb 8.7 L (11.6-15.3) gm/dL Hct 27.4 L (35.0-46.0) % Plt Count 334 (150-450) th/mm3 BMP 05/20/18 07:51 Sodium 138 Potassium 4.1 Chloride 100 Carbon Dioxide 33.7 H BUN 14 Creatinine 0.49 L Calcium 8.5 Liver Function 05/20/18 Range/Units 07:51 Total Bilirubin 0.2 (0.2-1.0) mg/dL AST 31 (15-37) U/L ALT 10 (10-53) U/L Alkaline Phosphatase 98 (45-117) U/L Albumin 1.8 L (3.4-5.0) g/dL Urine 05/20/18 Range/Units 06:30 Urine Color Straw (Yellw/Straw) Urine Clarity Clear (Clear) Urine pH 7.0 (5.0-8.5) Ur Specific [place] 1.005 (1.002-1.035) Urine Protein Negative (Neg-Trace) mg/dL Urine Glucose (UA) Negative (Negative) mg/dL <Tip Gtz L - 05/20/18 13:07> Caprini VTE Risk Assessment Caprini VTE Risk Assessment: No/Low Risk (score <= 1) <Steffany Miller - 06/07 00:41> Caprini Risk Assessment Model: Point Value = 1 Point Value = 2 Point Value = 3 Point Value = 5 Age 41-60 Minor surgery BMI > 25 kg/m2 Swollen legs Varicose veins or History of unexplained or recurrent spontaneous Oral contraceptives or hormone replacement Sepsis (< 1 month) Serious lung disease, including pneumonia (< 1 month) Abnormal pulmonary function Acute myocardial infarction Congestive heart failure (< 1 month) History of inflammatory bowel disease Medical patient at bed rest Age 61-74 Arthroscopic surgery Major open surgery (> 45 min) Laparoscopic surgery (> 45 min) Malignancy Confined to bed (> 72 hours) Immobilizing plaster cast Central venous access Age >= 75 History of VTE Family history of VTE Factor V Leiden Prothrombin [id number] Lupus anticoagulant Anticardiolipin antibodies Elevated serum homocysteine Heparin-induced thrombocytopenia Other congenital or acquired thrombophilia Stroke (< 1 month) Elective arthroplasty Hip, pelvis, or leg fracture Acute spinal cord injury (< 1 month) <Tip Gtz - 05/20/18 13:07> Point Value = 1 Point Value = 2 Point Value = 3 Point Value = 5 Age 41-60 Minor surgery BMI > 25 kg/m2 Swollen legs Varicose veins or History of unexplained or recurrent spontaneous Oral contraceptives or hormone replacement Sepsis (< 1 month) Serious lung disease, including pneumonia (< 1 month) Abnormal pulmonary function Acute myocardial infarction Congestive heart failure (< 1 month) History of inflammatory bowel disease Medical patient at bed rest Age 61-74 Arthroscopic surgery Major open surgery (> 45 min) Laparoscopic surgery (> 45 min) Malignancy Confined to bed (> 72 hours) Immobilizing plaster cast Central venous access Age >= 75 History of VTE Family history of VTE Factor V Leiden Prothrombin [id number] Lupus anticoagulant Anticardiolipin antibodies Elevated serum homocysteine Heparin-induced thrombocytopenia Other congenital or acquired thrombophilia Stroke (< 1 month) Elective arthroplasty Hip, pelvis, or leg fracture Acute spinal cord injury (< 1 month) <Steffany Miller - 05/19/18 23:18> Prophylaxis Regimen: Total Risk Factor Score Risk Level Prophylaxis Regimen 0-1 Low Early ambulation 2 Moderate Order ONE of the following: *Sequential Compression Device (SCD) *Heparin 5000 units SQ BID 3-4 Higher Order ONE of the following medications: *Heparin 5000 units SQ TID *Enoxaparin/Lovenox 40 mg SQ daily (WT < 150 kg, CrCl > 30 mL/min) *Enoxaparin/Lovenox 30 mg SQ daily (WT < 150 kg, CrCl > 10-29 mL/min) *Enoxaparin/Lovenox 30 mg SQ BID (WT < 150 kg, CrCl > 30 mL/min) AND/OR *Sequential Compression Device (SCD) 5 or more Highest Order ONE of the following medications: *Heparin 5000 units SQ TID (Preferred with Epidurals) *Enoxaparin/Lovenox 40 mg SQ daily (WT < 150 kg, CrCl > 30 mL/min) *Enoxaparin/Lovenox 30 mg SQ daily (WT < 150 kg, CrCl > 10-29 mL/min) *Enoxaparin/Lovenox 30 mg SQ BID (WT < 150 kg, CrCl > 30 mL/min) AND *Sequential Compression Device (SCD) <Tip Gtz - 05/20/18 13:07> Total Risk Factor Score Risk Level Prophylaxis Regimen 0-1 Low Early ambulation 2 Moderate Order ONE of the following: *Sequential Compression Device (SCD) *Heparin 5000 units SQ BID 3-4 Higher Order ONE of the following medications: *Heparin 5000 units SQ TID *Enoxaparin/Lovenox 40 mg SQ daily (WT < 150 kg, CrCl > 30 mL/min) *Enoxaparin/Lovenox 30 mg SQ daily (WT < 150 kg, CrCl > 10-29 mL/min) *Enoxaparin/Lovenox 30 mg SQ BID (WT < 150 kg, CrCl > 30 mL/min) AND/OR *Sequential Compression Device (SCD) 5 or more Highest Order ONE of the following medications: *Heparin 5000 units SQ TID (Preferred with Epidurals) *Enoxaparin/Lovenox 40 mg SQ daily (WT < 150 kg, CrCl > 30 mL/min) *Enoxaparin/Lovenox 30 mg SQ daily (WT < 150 kg, CrCl > 10-29 mL/min) *Enoxaparin/Lovenox 30 mg SQ BID (WT < 150 kg, CrCl > 30 mL/min) AND *Sequential Compression Device (SCD) <Steffany Miller - 05/19/18 23:18> Assessment and Plan - Assessment (1) Bacterial arthritis of right hip Code(s): M00.851 - Arthritis due to other bacteria, right hip Status: Acute (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 Code(s): I33.0 - Acute and subacute infective endocarditis; B95.8 - Unspecified staphylococcus as the cause of diseases classified elsewhere Status: Acute (3) Polysubstance abuse Code(s): F19.10 - Other psychoactive substance abuse, uncomplicated Status: Acute (4) Diabetes Code(s): E11.9 - Type 2 diabetes mellitus without complications Status: Acute (5) Hepatitis C Code(s): B19.20 - Unspecified viral hepatitis C without hepatic coma Status: Acute (6) Anemia Code(s): D64.9 - Anemia, unspecified Status: Acute (7) Vaginal itching Code(s): N89.8 - Other specified noninflammatory disorders of vagina Status: Acute <Tip Gtz - 05/20/18 13:07> (1) Bacterial arthritis of right hip Code(s): M00.851 - Arthritis due to other bacteria, right hip Status: Acute Plan: S/p Right proximal femur resection (Girdlestone type) 05/16/2018 Tissue cx from 05/16 were negative for growth Non weight bearing to RLE Dressing change once a day w/4x4 gauze and Medipore tap onto clean and dry site. May shower 05/22/2018 (POD #5). Monitor for signs of infection. Con't pain medication regimen that seemed to achieve adequate pain control: Methadone PO 10 mg TID, wean over long-term Ibuprofen for pain 1-3 Edgecomb 5/325 for pain 4-6 Morphine for severe pain/7-10 Gabapentin 300 mg TID for neuropathic pain Order PT for early mobilization F/u ordered w/Dr. Cueva in 2 weeks. (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 Code(s): I33.0 - Acute and subacute infective endocarditis; B95.8 - Unspecified staphylococcus as the cause of diseases classified elsewhere Status: Acute Plan: MSSA+ On IV Ancef (started 05/14-), will likely need for total 6 weeks ID consulted to follow patient Reorder blood cx AM CBC See above (3) Polysubstance abuse Code(s): F19.10 - Other psychoactive substance abuse, uncomplicated Status: Acute Plan: Hx of IVDU (heroin, dilaudid, and other narcotics) and smoker Con't methadone 10 mg TID, max allowance is 30-40 mg per day. Plan to wean in long-term Nicotine patches (4) Diabetes Code(s): E11.9 - Type 2 diabetes mellitus without complications Status: Acute Plan: SSI for now, no home meds on file (5) Hepatitis C Code(s): B19.20 - Unspecified viral hepatitis C without hepatic coma Status: Acute Plan: Will require outpatient f/u and treatment (6) Anemia Code(s): D64.9 - Anemia, unspecified Status: Acute Plan: Hx of anemia requiring 2 units PRBCs on 05/16 at [facility] Monitor w/daily CBC (7) Vaginal itching Code(s): N89.8 - Other specified noninflammatory disorders of vagina Status: Acute Plan: Fluids: none Electrolytes: as needed Nutrition: Regular diet DVT prophylaxis: Lovenox 40 mg daily SQ for 2 weeks per surgery recs ([facility]) - procedure was 05/16 GI prophylaxis: none FULL CODE <Steffany Miller - 05/20/18 00:32> - Attending Attestation The exam, history, and the medical decision-making described in the above note were completed with the assistance of the resident physician. I reviewed and agree with the findings presented. I attest that I had a [id number] encounter with the patient on the following day, and personally performed and documented my assessment and findings in the medical record. Please see my documentation on 05/20/18. <Tip Gtz - 05/20/18 13:07> <Steffany Miller N - Last Filed: 05/20/18 00:32> (4) Diabetes Qualifiers: Diabetes mellitus intermediate manager insulin use: unspecified intermediate manager insulin use status <Steffany Miller N - Last Filed: 05/20/18 00:32> (4) Diabetes Qualifiers: Diabetes mellitus care home insulin use: unspecified care home insulin use status
[2018-05-19] MEDS ORDERED: Ibuprofen 600 MG Tablet PO PRN (23:57)
[2018-05-20] MEDS ORDERED: Dextrose 50% in Water 50 ML Vial IV.PUSH PRN (00:16)
[2018-05-20] MEDS: Methadone 10 MG Tablet PO SCH ×4 (00:32→23:13)
[2018-05-20] MEDS: ceFAZolin Inj 2,000 MG in Sodium Chlor 0.9% Inj 80 ML IV.SIG SCH ×2 (00:33→11:45)
[2018-05-20] MEDS: Morphine Inj 4 MG/ML Vial IV.PUSH PRN ×6 (00:33→22:31)
[2018-05-20] MEDS: traZODone 50 MG Tablet PO PRN ×2 (01:43→22:41)
[2018-05-20 07:20] LABS: Bacteria,Urine Rare /hpf; Bilirubin,Urine Negative (Negative); Clarity,Urine Clear (Clear); Color,Urine Straw (Yellw/Straw); Glucose,Urine (UA) Negative (Negative); Leukocyte Esterase,Urine Trace (Negative); Nitrite,Urine Negative (Negative); Specific Gravity,Urine 1.005 (1.002-1.035); Squamous Epithelial Cell,Urine 1 /hpf (0-5)
[2018-05-20 08:49] LABS: Baso # (Auto) 0.1 th/mm3 (0.0-0.2); Eos # (Auto) 0.1 th/mm3 (0.0-0.4); Hematocrit 27.4 % (35.0-46.0); Hemoglobin 8.7 gm/dL (11.6-15.3); Lymph # (Auto) 1.7 th/mm3 (1.0-4.8); Lymph % (Auto) 28.4 % (9.0-44.0); Mean Corpuscular HGB Conc 31.9 % (32.0-36.0); Mean Corpuscular Hemoglobin 22.5 pg (27.0-34.0); Mean Corpuscular Volume 70.4 fL (80.0-100.0); Mean Platelet Volume 6.9 fL (7.0-11.0); Mono # (Auto) 0.6 th/mm3 (0.0-0.9); Mono % (Auto) 9.9 % (0.0-8.0); Neut # (Auto) 3.5 th/mm3 (1.8-7.7); Neut % (Auto) 58.7 % (16.0-70.0); Platelet Count 334 th/mm3 (150-450); Red Blood Count 3.89 mil/mm3 (4.00-5.30); Red Cell Distribution Width 24.1 % (11.6-17.2)
[2018-05-20 09:14] LABS: Albumin 1.8 g/dL (3.4-5.0); Anion Gap 4 meq/L (5-15); Aspartate Aminotransferase 31 U/L (15-37); Blood Urea Nitrogen 14 mg/dL (7-18); Calcium 8.5 mg/dL (8.5-10.1); Carbon Dioxide 33.7 meq/L (21.0-32.0); Chloride 100 meq/L (98-107); Glomerular Filtration Rate Greater Than 89 mL/min (>89); Glucose,Random 75 mg/dL (74-106); Potassium 4.1 meq/L (3.5-5.1); Sodium 138 meq/L (136-145)
[2018-05-20 09:15] LABS: Alanine Aminotransferase 10 U/L (10-53)
[2018-05-20 09:16] LABS: Alkaline Phosphatase 98 U/L (45-117); Total Protein 7.7 g/dL (6.4-8.2)
[2018-05-20] MEDS: Insulin NovoLOG Aspart Correctional Sugar Inj SQ SCH ×4 (09:22→21:31)
[2018-05-20] MEDS: Senna/Docusate Sodium 8.6/50 MG Tablet PO SCH ×2 (09:56→22:34)
[2018-05-20] MEDS: Gabapentin 300 MG Capsule PO SCH ×3 (09:56→18:01)
[2018-05-20] MEDS: Ferrous Sulfate 325 MG Tablet PO SCH (09:56)
[2018-05-20] MEDS: Enoxaparin Inj 40 MG/0.4 ML Syringe SQ SCH (09:57)
--- NOTE | 2018-05-20 12:53 | P.PNFP ---
Subjective Interval history: 42 year old female seen with the resident team this morning. She has a history of IV drug use with complications of right hip osteomyelitis with pathologic fracture of the medial acetabular roof and endocarditis. She was originally admitted on 05/10 for left hip pain due to osteomyelitis and fracture. Her hospitalizations were from 05/03-05/09 (left AMA) and returned on 05/10. She has been treated with vancomycin and cefepime from 05/10-05/14 and transitioned to Ancef on 05/14 to treat MSSA. She was transferred to [facility] for incision and drainage of the right hip, Girdlestone right hip on 05/[address] Cueva. This procedure was chosen to avoid complications related to implant related infection. This morning she was seen with the resident team. She is sitting up in bed in no distress. She complains of pain and limited range of motion of her left hip. Besides that, she otherwise reports she is doing well. Does not report chest pain or shortness of breath. No nausea, or vomiting. Results - Labs Result diagrams: 05/20/18 07:51 05/20/18 07:51 Abnormal lab results 05/20/18 05/20/18 05/20/18 Range/Units 06:30 07:51 07:51 RBC 3.89 L (4.00-5.30) mil/mm3 Hgb 8.7 L (11.6-15.3) gm/dL Hct 27.4 L (35.0-46.0) % MCV 70.4 L (80.0-100.0) fL MCH 22.5 L (27.0-34.0) pg MCHC 31.9 L (32.0-36.0) % RDW 24.1 H (11.6-17.2) % MPV 6.9 L (7.0-11.0) fL Crisp % (Auto) 9.9 H (0.0-8.0) % Carbon Dioxide 33.7 H (21.0-32.0) meq/L Anion Gap 4 L (5-15) meq/L Creatinine 0.49 L (0.50-1.00) mg/dL POC Glucose (68-110) mg/dl Albumin 1.8 L (3.4-5.0) g/dL Ur Leukocyte Esterase Trace H (Negative) Urine Bacteria Rare H (None) /hpf 05/20/18 Range/Units 08:13 RBC (4.00-5.30) mil/mm3 Hgb (11.6-15.3) gm/dL Hct (35.0-46.0) % MCV (80.0-100.0) fL MCH (27.0-34.0) pg MCHC (32.0-36.0) % RDW (11.6-17.2) % MPV (7.0-11.0) fL Crisp % (Auto) (0.0-8.0) % Carbon Dioxide (21.0-32.0) meq/L Anion Gap (5-15) meq/L Creatinine (0.50-1.00) mg/dL POC Glucose 127 H (68-110) mg/dl Albumin (3.4-5.0) g/dL Ur Leukocyte Esterase (Negative) Urine Bacteria (None) /hpf Short CBC 05/20/18 Range/Units 07:51 WBC 6.0 (4.0-11.0) th/mm3 Hgb 8.7 L (11.6-15.3) gm/dL Hct 27.4 L (35.0-46.0) % Plt Count 334 (150-450) th/mm3 BMP 05/20/18 07:51 Sodium 138 Potassium 4.1 Chloride 100 Carbon Dioxide 33.7 H BUN 14 Creatinine 0.49 L Calcium 8.5 Liver Function 05/20/18 Range/Units 07:51 Total Bilirubin 0.2 (0.2-1.0) mg/dL AST 31 (15-37) U/L ALT 10 (10-53) U/L Alkaline Phosphatase 98 (45-117) U/L Albumin 1.8 L (3.4-5.0) g/dL Urine 05/20/18 Range/Units 06:30 Urine Color Straw (Yellw/Straw) Urine Clarity Clear (Clear) Urine pH 7.0 (5.0-8.5) Ur Specific [place] 1.005 (1.002-1.035) Urine Protein Negative (Neg-Trace) mg/dL Urine Glucose (UA) Negative (Negative) mg/dL Physical Exam Vital signs: Vital Signs 05/19/18 22:19 05/20/18 00:00 05/20/18 04:00 Temperature 98.4 F 98.4 F 97.9 F Pulse Rate 98 H 107 H 87 Respiratory Rate 18 16 14 Blood Pressure 127/72 137/80 101/61 Pulse Oximetry 100 97 98 05/20/18 05:03 05/20/18 08:00 05/20/18 12:00 Temperature 99.0 F 99.5 F Pulse Rate 97 H 78 94 H Respiratory Rate 16 18 Blood Pressure 131/78 116/62 106/61 Pulse Oximetry 98 96 Intake & Output 05/19/18 05/20/18 05/20/18 18:59 06:59 18:59 Intake Total 1300 / 1300 Balance 1300 / 1300 Weight 41.8 kg Intake: IV 100 / 100 Ancef Inj 2,000 MG In NS Inj 80 100 / 100 ML @ 200 mls/hr IV.SIG Q8H RENU Rx#:[id number] Oral 1200 / 1200 Other: # Voids 800 Date of Last Bowel Movement 05/19/18 Weight On Admission 41.5 kg Narrative: General: Thin cachectic female in no distress Skin: Incision site right hip clean, dry, intact HEENT: Normocephalic, no nasal discharge, normal conjunctiva, no scleral icterus Neck: Supple CV: RRR, no murmur, rubs, or gallops, regular pulses. No [place] lesions or [place] nodes. Lungs: CTAB Abdomen: Soft, nontender, nondistended, normal bowel sounds MSK: Limited range of motion of the right hip Psych: Appropriate mood and affect this morning Neuro: Awake, alert Assessment and Plan - Assessment (1) Bacterial arthritis of right hip Code(s): M00.851 - Arthritis due to other bacteria, right hip Status: Acute Plan: S/p Right proximal femur resection (Girdlestone type) 05/16/2018 Tissue cx from 05/16 negative for growth - Will consult orthopedic surgery - Non weight bearing to RLE - Dressing change once a day w/4x4 gauze and Medipore tap onto clean and dry site. May shower 05/22/2018 (POD #5). - Monitor for signs of infection. - Con't pain medication regimen that seemed to achieve adequate pain control: Methadone PO 10 mg TID, wean over long-term Ibuprofen for pain 1-3 [place] 5/325 for pain 4-6 Morphine for severe pain/7-10 Gabapentin 300 mg TID for neuropathic pain - Order PT for early mobilization - F/u ordered w/Dr. Cueva in 2 weeks. 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 Plan to wean in long-term Nicotine patches Case management, help with outpatient resources (4) Diabetes Code(s): E11.9 - Type 2 diabetes mellitus without complications Status: Acute Plan: SSI for now, no home meds on file (5) Hepatitis C Code(s): B19.20 - Unspecified viral hepatitis C without hepatic coma Status: Acute Plan: Will require outpatient f/u and treatment (6) Anemia Code(s): D64.9 - Anemia, unspecified Status: Acute Plan: Hx of anemia requiring 2 units PRBCs on 05/16 at [facility] Monitor w/daily CBC (7) Vaginal itching Code(s): N89.8 - Other specified noninflammatory disorders of vagina Status: Acute Plan: Fluids: none Electrolytes: as needed Nutrition: Regular diet DVT prophylaxis: Lovenox 40 mg daily SQ for 2 weeks per surgery recs ([facility]) - procedure was 05/16 GI prophylaxis: none FULL CODE - Assessment and Plan Discussed Condition With: Seen and discussed with Dr. Godinez, Dr. Vigil, Dr. 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
--- NOTE | 2018-05-20 13:22 | P.CONID ---
History of Present Illness Service: Infectious disease Consult date: 05/20/18 Requesting Physician: Tip Gtz Primary Care Provider: UNKNOWN Chief Complaint: Endocarditis History of Present Illness: Patient seen and examined. Records reviewed. Patient is a 42-year-old female, with known IV drug use, has been in and out of the hospital and has signed out AMA on multiple occasions. She had been treated in the past for group A strep endocarditis, and at that time it was unclear whether she completed treatment. More recently she has had blood culture with MSSA starting in February. She was never fully evaluated for this since she had signed out AMA. I saw her the second week of January and at that time she had MSSA bacteremia. In the past she had evidence of vegetation in the mitral valve. During her last admission in the regular echo did not show any vegetation. She however signed out AGAINST MEDICAL ADVICE on May 09, and presented back to the hospital May 10 complaining of hip pain. She was evaluated and showed significant infection in the joint as well as the bone, so the patient was transferred to [facility]. She underwent emergent I&D of the right hip, and Girdlestone procedure. There was an aspiration of the fluid in the right hip prior to transfer and that grew MSSA. According to the records from [facility] the tissue culture so far did not grow any bacteria. Patient has been transferred back to [place] for continued treatment. Patient currently still complains of significant pain in her right hip. She has been ambulating in her room using a walker with no weightbearing to that right lower extremity. Her temps are okay she had one low-grade temp of 99+. Her blood cultures from the last admission in May 10 were negative. Infectious disease consultation has been requested to assist with evaluation and treatment. Review of Systems Constitutional: Denies chills, Denies fever(s) Eyes: Denies discharge, Denies dry eyes Ears, Nose, Mouth, and Throat: Denies difficulty swallowing, Denies nasal discharge, Denies nasal obstruction, Denies sore throat Cardiovascular: Denies chest pain, Denies shortness of breath Respiratory: Denies chest congestion, Denies cough, Denies shortness of breath Gastrointestinal: Denies abdominal pain, Denies loose stools, Denies nausea, Denies pain with swallowing, Denies vomiting Genitourinary: Denies difficulty urinating, Denies painful urination Musculoskeletal: Reports joint pain, Reports joint swelling, Reports limited joint movement Skin/Breast: Denies rash Neurologic: Denies headache(s) PMFSH - History History Provided By: Patient, Medical Record - Medical History Medical History: Medical History (Last Reviewed 05/20/18 @ 13:14 by Kassandra Javier MD) CVA (cerebral vascular accident) Endocarditis Hepatitis C IV drug abuse Laceration of kidney - Surgical History Surgical History: Surgical History (Last Reviewed 05/20/18 @ 13:14 by Kassandra Javier MD) Hx of hand surgery - Family History Family History: Family History (Last Reviewed 05/20/18 @ 13:14 by Kassandra Javier MD) Other Family history unknown - Tobacco History Second Hand Smoke Exposure: Yes Smoking Status: Current every day smoker Tobacco Type: Cigarettes - Alcohol History How Often Do You Have a Drink Containing Alcohol: 2 to 4 times a month - Substance Use History Substance History: Active Abuse Medications and Allergies Active Medications: Active Medications Acetaminophen (Tylenol) 650 mg PO Q4H PRN PRN Reason: Temp > 100.4 Hydrocodone Bitart/Acetaminophen ([place] 5/325) 1 tab PO Q4H PRN PRN Reason: pain score 4-6/moderate pain Al Hydroxide/Mg Hydroxide (Milk Of Magnesia Liq) 30 ml PO Q12H PRN PRN Reason: Mild Constipation Bisacodyl (Dulcolax Supp) 10 mg RECTAL DAILY PRN PRN Reason: SEVERE CONSITIPATION Dextrose (D50w Vial) 50 ml IV.PUSH UNSCH PRN PRN Reason: PER HYPOGLYCEMIA PROTOCOL Enoxaparin Sodium (Lovenox Inj) 40 mg SQ DAILY [facility] Last Admin: 05/20/18 09:57 Dose: 40 mg Ferrous Sulfate (Ferosul) 325 mg PO DAILY [facility] Last Admin: 05/20/18 09:56 Dose: 325 mg Gabapentin (Neurontin) 300 mg PO TID [facility] Last Admin: 05/20/18 09:56 Dose: 300 mg Glucagon (Glucagon Inj) 1 mg OTHER PRN PRN PRN Reason: for Hypoglycemia Protocol Cefazolin Sodium/Dextrose (Ancef 2 Gm Premix Inj) 2 gm in 50 mls @ 100 mls/hr IV.SIG Q8H [facility] Ibuprofen (Motrin) 600 mg PO Q6HR PRN PRN Reason: pain 1-3 Insulin Aspart (Novolog Insulin Correctional Sugar Inj) 0 unit SQ ACHS [facility]; Protocol Last Admin: 05/20/18 09:22 Dose: Not Given Lactulose (Lactulose Liq) 30 ml PO DAILY PRN PRN Reason: SEVERE CONSITIPATION Methadone HCl (Dolophine) 10 mg PO Q8H [facility] Last Admin: 05/20/18 09:54 Dose: Not Given Miconazole Nitrate (Monistat 7 Vag Cream) 1 appful VAGINAL HS [facility] Stop: 05/25/18 21:01 Last Admin: 05/20/18 01:49 Dose: 1 appful Morphine Sulfate (Morphine Inj) 4 mg IV.PUSH Q4H PRN PRN Reason: Severe Pain 7-10 Last Admin: 05/20/18 09:55 Dose: 4 mg Naloxone HCl (Narcan Inj) 0.4 mg IV.PUSH UNSCH PRN PRN Reason: SEE LABEL COMMENTS Nicotine (Habitrol 21 Mg Patch.24 Hr) 1 patch T-DERMAL DAILY [facility] Last Admin: 05/20/18 09:58 Dose: 1 patch Ondansetron HCl (Zofran Inj) 4 mg IV.PUSH Q6H PRN PRN Reason: NAUSEA OR VOMITING Patch Removal (Remove Old Patch) 1 each T-DERMAL DAILY [facility] Last Admin: 05/20/18 09:58 Dose: Not Given Senna/Docusate Sodium (Silvia-Colace) 1 tab PO BID [facility] Last Admin: 05/20/18 09:56 Dose: Not Given Sennosides (Senokot) 17.2 mg PO Q12H PRN PRN Reason: Moderate Constipation Sodium Chloride (Ns Flush) 2 ml IV.FLUSH BID [facility] Last Admin: 05/20/18 09:58 Dose: 2 ml Sodium Chloride (Ns Flush) 2 ml IV.FLUSH PRN PRN PRN Reason: FLUSH AFTER USING IV ACCESS Trazodone HCl (Desyrel) 50 mg PO HS PRN PRN Reason: INSOMNIA Last Admin: 05/20/18 01:43 Dose: 50 mg Allergies Allergy/AdvReac Type Severity Reaction Status Date / Time No Known Allergies Allergy Verified 05/10/18 18:14 Exam Vital signs: Vital Signs 05/19/18 22:19 05/20/18 00:00 05/20/18 04:00 Temperature 98.4 F 98.4 F 97.9 F Pulse Rate 98 H 107 H 87 Respiratory Rate 18 16 14 Blood Pressure 127/72 137/80 101/61 Pulse Oximetry 100 97 98 05/20/18 05:03 05/20/18 08:00 05/20/18 12:00 Temperature 99.0 F 99.5 F Pulse Rate 97 H 78 94 H Respiratory Rate 16 18 Blood Pressure 131/78 116/62 106/61 Pulse Oximetry 98 96 Intake & Output 05/19/18 05/20/18 05/20/18 18:59 06:59 18:59 Intake Total 1300 / 1300 Balance 1300 / 1300 Weight 41.8 kg Intake: IV 100 / 100 Ancef Inj 2,000 MG In NS Inj 80 100 / 100 ML @ 200 mls/hr IV.SIG Q8H RENU Rx#:[id number] Oral 1200 / 1200 Other: # Voids 800 Date of Last Bowel Movement 05/19/18 Weight On Admission 41.5 kg Narrative: Physical examination GENERAL: Patient is a cachectic, well-developed female, awake and alert, not in respiratory distress. Looks older than stated age, ambulating in her room using a walker, non-weight bearing to her RLE SKIN: Cool and dry. Healed track recinos in UE, a lot of scars in BLE. No ecchymoses and no evidence of embolic lesions. HEAD: Atraumatic. Normocephalic. No temporal wasting, or tenderness. EYES: [place] conjunctiva. No petechia or hemorrhage. Pupils equal, round and reactive to light. Extraocular movements full and intact. No scleral icterus. No injection or drainage. EARS, NOSE AND THROAT: Nose without bleeding or purulent nasal discharge. No sinus tenderness. Mucous membranes pink and moist. No oral lesions noted. No exudate. No oral thrush. Poor dentition NECK: Trachea midline. Supple and not tender, no meningeal signs CARDIOVASCULAR: Regular rate and rhythm. No murmurs, rubs or gallops heard RESPIRATORY: Clear to auscultation. Breath sounds equal bilaterally. No rales , wheezing or rhonchi ABDOMEN: Soft, non-tender, nondistended. Bowel sounds present and normoactive. No guarding. No rebound. No organomegaly. EXTREMITIES: No clubbing, cyanosis. Incision R hip dry with no redness, no drainage, tender to touch. No calf tenderness. NEUROLOGICAL: Awake and alert. Cranial nerves grossly intact. Motor grossly within normal limits. PSYCHIATRIC: Normal affect, calm and cooperative. LINE: No evidence of infection Results - Labs CBC & Chem 7: 05/21/18 06:52 05/20/18 07:51 Labs: Laboratory Results - last 24 hr 05/20/18 05/20/18 05/20/18 06:30 07:51 07:51 WBC 6.0 RBC 3.89 L Hgb 8.7 L Hct 27.4 L MCV 70.4 L MCH 22.5 L MCHC 31.9 L RDW 24.1 H Plt Count 334 MPV 6.9 L Neut % (Auto) 58.7 Lymph % (Auto) 28.4 Humphreys % (Auto) 9.9 H Eos % (Auto) 2.0 Baso % (Auto) 1.0 Neut # (Auto) 3.5 Lymph # (Auto) 1.7 Humphreys # (Auto) 0.6 Eos # (Auto) 0.1 Baso # (Auto) 0.1 WBC Differential . Differential Comment Auto diff final Sodium 138 Potassium 4.1 Chloride 100 Carbon Dioxide 33.7 H Anion Gap 4 L BUN 14 Creatinine 0.49 L Estimated GFR Greater than 89 POC Glucose Random Glucose 75 Calcium 8.5 Total Bilirubin 0.2 AST 31 ALT 10 Alkaline Phosphatase 98 Total Protein 7.7 Albumin 1.8 L Urine Color Straw Urine Clarity Clear Urine pH 7.0 Ur Specific [place] 1.005 Urine Protein Negative Urine Glucose (UA) Negative Urine Ketones Negative Urine Occult Blood Negative Urine Nitrate Negative Urine Bilirubin Negative Urine Urobilinogen Less than 2 Ur Leukocyte Esterase Trace H Urine RBC Less than 1 Urine WBC 2 Ur Squamous Epith Cells 1 Urine Bacteria Rare H Micro UA Comment Culture not ind Ur Microscopic Review Not Reportable Urine Culture Comments Culture not ind 05/20/18 05/20/18 08:13 12:59 WBC RBC Hgb Hct MCV MCH MCHC RDW Plt Count MPV Neut % (Auto) Lymph % (Auto) Humphreys % (Auto) Eos % (Auto) Baso % (Auto) Neut # (Auto) Lymph # (Auto) Humphreys # (Auto) Eos # (Auto) Baso # (Auto) WBC Differential Differential Comment Sodium Potassium Chloride Carbon Dioxide Anion Gap BUN Creatinine Estimated GFR POC Glucose 127 H 161 H Random Glucose Calcium Total Bilirubin AST ALT Alkaline Phosphatase Total Protein Albumin Urine Color Urine Clarity Urine pH Ur Specific [place] Urine Protein Urine Glucose (UA) Urine Ketones Urine Occult Blood Urine Nitrate Urine Bilirubin Urine Urobilinogen Ur Leukocyte Esterase Urine RBC Urine WBC Ur Squamous Epith Cells Urine Bacteria Micro UA Comment Ur Microscopic Review Urine Culture Comments Assessment and Plan - Plan Impression Septic R hip with osteomyelitis, S/P Girdlestone procedure - C/S intraop negative MSSA sepsis, suspicious for endocarditis - previously had MV vegetation, last echo from admission 05/03-05/09 no vegetation seen 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
[2018-05-20] MEDS: ceFAZolin 2 GM Premix Inj 2 GM/50 ML PIGGYBACK IV.SIG SCH ×2 (13:34→22:30)
[2018-05-21] MEDS: Morphine Inj 4 MG/ML Vial IV.PUSH PRN ×5 (03:20→20:57)
[2018-05-21] MEDS: ceFAZolin 2 GM Premix Inj 2 GM/50 ML PIGGYBACK IV.SIG SCH ×3 (05:59→20:57)
[2018-05-21 07:38] LABS: Baso % (Auto) 1.1 % (0.0-2.0); Eos # (Auto) 0.1 th/mm3 (0.0-0.4); Eos % (Auto) 2.5 % (0.0-4.0); Hematocrit 28.6 % (35.0-46.0); Hemoglobin 8.8 gm/dL (11.6-15.3); Lymph # (Auto) 1.5 th/mm3 (1.0-4.8); Lymph % (Auto) 33.6 % (9.0-44.0); Mean Corpuscular Hemoglobin 21.9 pg (27.0-34.0); Mean Corpuscular Volume 71.5 fL (80.0-100.0); Mean Platelet Volume 6.8 fL (7.0-11.0); Mono # (Auto) 0.5 th/mm3 (0.0-0.9); Mono % (Auto) 12.4 % (0.0-8.0); Neut # (Auto) 2.2 th/mm3 (1.8-7.7); Neut % (Auto) 50.4 % (16.0-70.0); Platelet Count 339 th/mm3 (150-450); Red Cell Distribution Width 24.3 % (11.6-17.2); White Blood Count 4.3 th/mm3 (4.0-11.0)
[2018-05-21 07:42] LABS: Mean Corpuscular HGB Conc 30.7 % (32.0-36.0)
[2018-05-21 09:08] LABS: Acanthocytes Occ; Eosinophils 1 % (0-4); Lymphocytes 28 % (9-44); Metamyelocytes 4 % (0-1); Monocytes 10 % (0-8)
[2018-05-21 09:09] LABS: Ovalocytes 1+; Platelet Estimate Normal (Normal); Platelet Morphology Normal (Normal)
--- NOTE | 2018-05-21 09:43 | P.PNFP ---
Subjective Interval history: Doing well, continues to ask for pain medication increase. States she is unable to move leg or sit up in chair. Improvement in vaginal itching. No fevers/chills overnight, no new symptoms. <Gretchen Steffany Jaquez N - 05/21/18 09:43> Results - Labs Result diagrams: 05/21/18 06:52 05/20/18 07:51 <Tip Gtz - 05/21/18 10:55> Abnormal lab results 05/20/18 05/20/18 05/20/18 Range/Units 12:59 17:28 21:05 Hgb (11.6-15.3) gm/dL Hct (35.0-46.0) % MCV (80.0-100.0) fL MCH (27.0-34.0) pg MCHC (32.0-36.0) % RDW (11.6-17.2) % MPV (7.0-11.0) fL [place] % (Auto) (0.0-8.0) % Monocytes % (Manual) (0-8) % Metamyelocytes % (Man) (0-1) % Ovalocytes (None) Acanthocytes (Spur) (None) ESR (0-20) mm/hr POC Glucose 161 H 262 H 146 H (68-110) mg/dl C-Reactive Protein (0.00-0.30) mg/dL 05/21/18 05/21/18 05/21/18 Range/Units 06:52 06:52 08:07 Hgb 8.8 L (11.6-15.3) gm/dL Hct 28.6 L (35.0-46.0) % MCV 71.5 L (80.0-100.0) fL MCH 21.9 L (27.0-34.0) pg MCHC 30.7 L (32.0-36.0) % RDW 24.3 H (11.6-17.2) % MPV 6.8 L (7.0-11.0) fL [place] % (Auto) 12.4 H (0.0-8.0) % Monocytes % (Manual) 10 H (0-8) % Metamyelocytes % (Man) 4 H (0-1) % Ovalocytes 1+ H (None) Acanthocytes (Spur) Occ H (None) ESR Greater than 140 H (0-20) mm/hr POC Glucose 151 H (68-110) mg/dl C-Reactive Protein 2.80 H (0.00-0.30) mg/dL Short CBC 05/21/18 Range/Units 06:52 WBC 4.3 (4.0-11.0) th/mm3 Hgb 8.8 L (11.6-15.3) gm/dL Hct 28.6 L (35.0-46.0) % Plt Count 339 (150-450) th/mm3 <Young,Tip L - 05/21/18 10:55> Abnormal lab results 05/20/18 05/20/18 05/20/18 Range/Units 12:59 17:28 21:05 Hgb (11.6-15.3) gm/dL Hct (35.0-46.0) % MCV (80.0-100.0) fL MCH (27.0-34.0) pg MCHC (32.0-36.0) % RDW (11.6-17.2) % MPV (7.0-11.0) fL [place] % (Auto) (0.0-8.0) % Monocytes % (Manual) (0-8) % Metamyelocytes % (Man) (0-1) % Ovalocytes (None) Acanthocytes (Spur) (None) ESR (0-20) mm/hr POC Glucose 161 H 262 H 146 H (68-110) mg/dl C-Reactive Protein (0.00-0.30) mg/dL 05/21/18 05/21/18 05/21/18 Range/Units 06:52 06:52 08:07 Hgb 8.8 L (11.6-15.3) gm/dL Hct 28.6 L (35.0-46.0) % MCV 71.5 L (80.0-100.0) fL MCH 21.9 L (27.0-34.0) pg MCHC 30.7 L (32.0-36.0) % RDW 24.3 H (11.6-17.2) % MPV 6.8 L (7.0-11.0) fL [place] % (Auto) 12.4 H (0.0-8.0) % Monocytes % (Manual) 10 H (0-8) % Metamyelocytes % (Man) 4 H (0-1) % Ovalocytes 1+ H (None) Acanthocytes (Spur) Occ H (None) ESR Greater than 140 H (0-20) mm/hr POC Glucose 151 H (68-110) mg/dl C-Reactive Protein 2.80 H (0.00-0.30) mg/dL Short CBC 05/21/18 Range/Units 06:52 WBC 4.3 (4.0-11.0) th/mm3 Hgb 8.8 L (11.6-15.3) gm/dL Hct 28.6 L (35.0-46.0) % Plt Count 339 (150-450) th/mm3 <Gretchen JaquezSteffany N - 05/21/18 09:43> Physical Exam Vital signs: Vital Signs 05/20/18 12:00 05/20/18 15:27 05/20/18 20:00 Temperature 99.5 F 99.7 F H 99.9 F H Pulse Rate 94 H 108 H 112 H Respiratory Rate 18 18 18 Blood Pressure 106/61 132/69 131/76 Pulse Oximetry 96 99 98 05/21/18 00:00 05/21/18 00:19 05/21/18 04:00 Temperature 99.1 F 99.5 F Pulse Rate 95 H 88 Respiratory Rate 18 18 18 Blood Pressure 101/57 L 112/56 L Pulse Oximetry 98 97 05/21/18 08:00 Temperature 98.1 F Pulse Rate 93 H Respiratory Rate Blood Pressure 97/69 L Pulse Oximetry 99 Intake & Output 05/20/18 05/21/18 05/21/18 18:59 06:59 18:59 Intake Total 1850 / 1850 1123 / 1123 Output Total 1200 / 1200 300 / 300 Balance 1850 / 1850 -77 / -77 -300 / -300 Weight 43.2 kg Intake: IV 50 / 50 100 / 100 Ancef 2 GM Premix Inj 2 gm In 50 / 50 100 / 100 50 ml @ 100 mls/hr IV.SIG Q8H RENU Rx#:[id number] Oral 1800 / 1800 1023 / 1023 Output: Urine 1200 / 1200 300 / 300 Other: # Voids 3 Date of Last Bowel Movement 05/19/18 05/20/18 # Bowel Movements 1 <Tip Gtz L - 05/21/18 10:55> Vital Signs 05/20/18 12:00 05/20/18 15:27 05/20/18 20:00 Temperature 99.5 F 99.7 F H 99.9 F H Pulse Rate 94 H 108 H 112 H Respiratory Rate 18 18 18 Blood Pressure 106/61 132/69 131/76 Pulse Oximetry 96 99 98 05/21/18 00:00 05/21/18 00:19 05/21/18 04:00 Temperature 99.1 F 99.5 F Pulse Rate 95 H 88 Respiratory Rate 18 18 18 Blood Pressure 101/57 L 112/56 L Pulse Oximetry 98 97 05/21/18 08:00 Temperature 98.1 F Pulse Rate 93 H Respiratory Rate Blood Pressure 97/69 L Pulse Oximetry 99 Intake & Output 05/20/18 05/21/18 05/21/18 18:59 06:59 18:59 Intake Total 1850 / 1850 1123 / 1123 Output Total 1200 / 1200 300 / 300 Balance 1850 / 1850 -77 / -77 -300 / -300 Weight 43.2 kg Intake: IV 50 / 50 100 / 100 Ancef 2 GM Premix Inj 2 gm In 50 / 50 100 / 100 50 ml @ 100 mls/hr IV.SIG Q8H RENU Rx#:[id number] Oral 1800 / 1800 1023 / 1023 Output: Urine 1200 / 1200 300 / 300 Other: # Voids 3 Date of Last Bowel Movement 05/19/18 05/20/18 # Bowel Movements 1 <Steffany Miller N - 05/21/18 09:43> Narrative: Physical examination GENERAL: Thin, talkative woman appearing older than her age sitting in bed comfortably. SKIN: Warm and dry. Moderate right hip swelling. No redness or erythema. A 9 cm incision site is c/d/i and closed w/eh. HEAD: Normocephalic. EYES: No scleral icterus. No injection or drainage. NECK: Supple, trachea midline. No JVD or lymphadenopathy. CARDIOVASCULAR: Regular rate and rhythm without murmurs, gallops, or rubs. LE pulses intact. RESPIRATORY: Breath sounds equal bilaterally. No accessory muscle use. GASTROINTESTINAL: Abdomen is nondistended. MUSCULOSKELETAL: No cyanosis. 5/5 dorsiflexion and plantar flexion of the right foot. 0/5 flexion, abduction, or adduction strength. BACK: Endorses right sided flank pain equated w/muscle soreness. No evident tenderness to palpation. <Gretchen Steffany Jaquez Aaron - 05/21/18 09:43> Assessment and Plan - Assessment (1) Bacterial arthritis of right hip Code(s): M00.851 - Arthritis due to other bacteria, right hip Status: Acute (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 Code(s): I33.0 - Acute and subacute infective endocarditis; B95.8 - Unspecified staphylococcus as the cause of diseases classified elsewhere Status: Acute (3) Polysubstance abuse Code(s): F19.10 - Other psychoactive substance abuse, uncomplicated Status: Acute (4) Diabetes Code(s): E11.9 - Type 2 diabetes mellitus without complications Status: Acute (5) Hepatitis C Code(s): B19.20 - Unspecified viral hepatitis C without hepatic coma Status: Acute (6) Anemia Code(s): D64.9 - Anemia, unspecified Status: Acute (7) Vaginal itching Code(s): N89.8 - Other specified noninflammatory disorders of vagina Status: Acute <Tip Gtz Genaro - 05/21/18 10:55> (1) Bacterial arthritis of right hip Code(s): M00.851 - Arthritis due to other bacteria, right hip Status: Acute Plan: 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 - Non weight bearing to RLE Con't pain medication regimen: Methadone PO 10 mg TID, wean over long-term Ibuprofen for pain 1-3 [place] 5/325 for pain 4-6 Morphine for severe pain/7-10 Gabapentin 300 mg TID for neuropathic pain PT for early mobilization - F/u ordered w/Dr. Cueva in 2 weeks. (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 Code(s): I33.0 - Acute and subacute infective endocarditis; B95.8 - Unspecified staphylococcus as the cause of diseases classified elsewhere Status: Acute Plan: MSSA+ On IV Ancef (started 05/14-), will need for total 6-8 weeks ID consulted to follow patient Infectious disease on board (3) Polysubstance abuse Code(s): F19.10 - Other psychoactive substance abuse, uncomplicated Status: Acute Plan: Hx of IVDU (heroin, dilaudid, and other narcotics) and smoker Con't methadone 10 mg TID, max allowance is 30-40 mg per day. Plan to wean in long-term Nicotine patches Case management to help with outpatient placement, preferably [facility] for drug rehab (4) Diabetes Code(s): E11.9 - Type 2 diabetes mellitus without complications Status: Acute Plan: SSI for now, no home meds on file (5) Hepatitis C Code(s): B19.20 - Unspecified viral hepatitis C without hepatic coma Status: Acute Plan: Will require outpatient f/u and treatment (6) Anemia Code(s): D64.9 - Anemia, unspecified Status: Acute Plan: Hx of anemia requiring 2 units PRBCs on 05/16 at [facility] Microcytic, likely 2/2 to iron def On daily Ferrous sulfate (7) Vaginal itching Code(s): N89.8 - Other specified noninflammatory disorders of vagina Status: Acute Plan: Fluids: none Electrolytes: as needed Nutrition: Regular diet DVT prophylaxis: Lovenox 40 mg daily SQ for 2 weeks per surgery recs ([facility]) - procedure was 05/16 GI prophylaxis: none FULL CODE <Gretchen Steffany Jaquez N - 05/21/18 09:32> - Attending Attestation The exam, history, and the medical decision-making described in the above note were completed with the assistance of the resident physician. I reviewed and agree with the findings presented. I attest that I had a [id number] encounter with the patient on the same day, and personally performed and documented my assessment and findings in the medical record. I evaluated patient with Dr. Godinez and discussed management plan with Dr. Godinez and Dr. Vigil. Patient is doing well this morning. On MSK exam she has significantly limited range of motion of the right hip. She has pain in the lateral thigh and the lower right back that is muscular in origin. We removed the dressing and inspected the incision site, which is clean, dry and intact. There is no surrounding erythema and minimal swelling about this area. On cardiovascular exam I do not appreciate a murmur at this time. I also do not see Jan[place]ay lesions or Osler's nodes. We discussed outpatient drug rehab at length. She would be a good candidate for methadone or Suboxone treatment after discharge. <Tip Gtz - 05/21/18 10:55> <Steffany Miller [facility] Last Filed: 05/21/18 09:32> (4) Diabetes Qualifiers: Diabetes mellitus remote computer terminal operator insulin use: unspecified remote computer terminal operator insulin use status <iTp Gtz Filed: 05/21/18 10:55> (4) Diabetes Qualifiers: Diabetes mellitus longterm insulin use: unspecified longterm insulin use status <Steffany Miller [facility] Last Filed: 05/21/18 09:32> (4) Diabetes Qualifiers: Diabetes mellitus longterm insulin use: unspecified remote computer terminal operator insulin use status <Tip Gtz Filed: 05/21/18 10:55> (4) Diabetes Qualifiers: Diabetes mellitus longterm insulin use: unspecified remote computer terminal operator insulin use status
[2018-05-21] MEDS: Gabapentin 300 MG Capsule PO SCH ×3 (10:17→18:19)
[2018-05-21] MEDS: Ferrous Sulfate 325 MG Tablet PO SCH (10:17)
[2018-05-21] MEDS: Methadone 10 MG Tablet PO SCH ×2 (10:17→18:19)
[2018-05-21] MEDS: Insulin NovoLOG Aspart Correctional Sugar Inj SQ SCH ×4 (10:18→21:14)
[2018-05-21] MEDS: Enoxaparin Inj 40 MG/0.4 ML Syringe SQ SCH (10:18)
[2018-05-21] MEDS: Senna/Docusate Sodium 8.6/50 MG Tablet PO SCH ×2 (10:19→21:04)
[2018-05-21 12:37] LABS: Bacteria,Urine Occasional /hpf; Bilirubin,Urine Negative (Negative); Clarity,Urine Hazy (Clear); Color,Urine Amber (Yellw/Straw); Glucose,Urine (UA) Negative (Negative); Hyaline Casts,Urine 1 /lpf (0-3); Leukocyte Esterase,Urine Trace (Negative); Mucus,Urine Few /lpf (Occasional); Nitrite,Urine Negative (Negative); Squamous Epithelial Cell,Urine 2 /hpf (0-5)
[2018-05-21 12:42] LABS: Urobilinogen,Urine 0.2 mg/dL (Less than 2)
--- NOTE | 2018-05-21 16:21 | P.PNADD ---
Addendum to Inpatient Note Reason for Addendum: Additional Documentation Additional information: Spoke w/Dr. Buchanan over the phone. Based on patient's type of surgery and extent of infection, she has a very low chance of being able to walk normally again. Will need to learn through PT how to safely transfer and to use wheelchair and walker. Any questions about her surgery or recovery will need to go to the surgeon who performed her surgery in [place]. Pain at surgical site should improve after a couple weeks.
[2018-05-21] MEDS: traZODone 50 MG Tablet PO PRN (21:00)
[2018-05-22] MEDS: Methadone 10 MG Tablet PO SCH ×2 (01:29→09:08)
[2018-05-22] MEDS: Morphine Inj 4 MG/ML Vial IV.PUSH PRN ×6 (01:30→22:32)
[2018-05-22] MEDS: ceFAZolin 2 GM Premix Inj 2 GM/50 ML PIGGYBACK IV.SIG SCH ×3 (04:18→22:27)
[2018-05-22 08:49] LABS: Baso % (Auto) 0.9 % (0.0-2.0); Eos # (Auto) 0.1 th/mm3 (0.0-0.4); Eos % (Auto) 2.8 % (0.0-4.0); Hematocrit 27.4 % (35.0-46.0); Hemoglobin 8.4 gm/dL (11.6-15.3); Lymph # (Auto) 1.8 th/mm3 (1.0-4.8); Lymph % (Auto) 38.5 % (9.0-44.0); Mean Corpuscular Hemoglobin 22.2 pg (27.0-34.0); Mean Corpuscular Volume 72.3 fL (80.0-100.0); Mean Platelet Volume 6.9 fL (7.0-11.0); Mono # (Auto) 0.5 th/mm3 (0.0-0.9); Mono % (Auto) 11.2 % (0.0-8.0); Neut # (Auto) 2.1 th/mm3 (1.8-7.7); Neut % (Auto) 46.6 % (16.0-70.0); Platelet Count 323 th/mm3 (150-450); Red Blood Count 3.79 mil/mm3 (4.00-5.30); Red Cell Distribution Width 23.9 % (11.6-17.2); White Blood Count 4.6 th/mm3 (4.0-11.0)
[2018-05-22 08:50] LABS: Mean Corpuscular HGB Conc 30.7 % (32.0-36.0)
[2018-05-22] MEDS: Insulin NovoLOG Aspart Correctional Sugar Inj SQ SCH (09:07)
[2018-05-22] MEDS: Senna/Docusate Sodium 8.6/50 MG Tablet PO SCH ×2 (09:08→22:28)
[2018-05-22] MEDS: Gabapentin 300 MG Capsule PO SCH ×3 (09:09→18:25)
[2018-05-22] MEDS: Ferrous Sulfate 325 MG Tablet PO SCH (09:09)
[2018-05-22] MEDS: Enoxaparin Inj 40 MG/0.4 ML Syringe SQ SCH (09:09)
[2018-05-22 10:00] LABS: Eosinophils 2 % (0-4); Lymphocytes 33 % (9-44); Monocytes 9 % (0-8); Myelocytes 1 % (0-0); Ovalocytes 1+
[2018-05-22 10:01] LABS: Platelet Estimate Normal (Normal); Platelet Morphology Normal (Normal)
[2018-05-22] MEDS ORDERED: Methadone 10 MG Tablet PO ONE ×2 (10:02→11:00)
--- NOTE | 2018-05-22 10:15 | P.PNFP ---
Subjective Interval history: Patient seen at bedside this morning. There were no acute events overnight. Reports feeling better and having reduced pain which she attributes to the ibuprofen. An extensive conversation was had with patient about rehabilitation and recovery from drug use. Patient is very motivated to abstain from use of illegal drugs. She reports that her current environment at home makes it very difficult. She also reports that she plans on trying to stay out this environment and eventually get her license again by a small car and live in an apartment. She is very goal oriented and motivated for recovery. Current treatment and plan was discussed, patient reported understanding, had no further questions, and thanked us for our care. <Yaritza JacobsonSanket O - 05/22/18 10:13> Results - Labs Result diagrams: 05/22/18 07:59 05/20/18 07:51 <Tip Gtz L - 05/22/18 10:56> Abnormal lab results 05/21/18 05/21/18 05/21/18 Range/Units 11:50 17:26 21:12 RBC (4.00-5.30) mil/mm3 Hgb (11.6-15.3) gm/dL Hct (35.0-46.0) % MCV (80.0-100.0) fL MCH (27.0-34.0) pg MCHC (32.0-36.0) % RDW (11.6-17.2) % MPV (7.0-11.0) fL [place] % (Auto) (0.0-8.0) % Monocytes % (Manual) (0-8) % Myelocytes % (Man) (0-0) % Ovalocytes (None) ESR (0-20) mm/hr POC Glucose 176 H 155 H (68-110) mg/dl C-Reactive Protein (0.00-0.30) mg/dL Urine Clarity Hazy H (Clear) Urine Protein 30 H (Neg-Trace) mg/dL Ur Leukocyte Esterase Trace H (Negative) Urine Bacteria Occasional H (None) /hpf Urine Mucus Few H (Occasional) /lpf 05/22/18 05/22/18 Range/Units 07:59 07:59 RBC 3.79 L (4.00-5.30) mil/mm3 Hgb 8.4 L (11.6-15.3) gm/dL Hct 27.4 L (35.0-46.0) % MCV 72.3 L (80.0-100.0) fL MCH 22.2 L (27.0-34.0) pg MCHC 30.7 L (32.0-36.0) % RDW 23.9 H (11.6-17.2) % MPV 6.9 L (7.0-11.0) fL [place] % (Auto) 11.2 H (0.0-8.0) % Monocytes % (Manual) 9 H (0-8) % Myelocytes % (Man) 1 H (0-0) % Ovalocytes 1+ H (None) ESR Greater than 140 H (0-20) mm/hr POC Glucose (68-110) mg/dl C-Reactive Protein 2.30 H (0.00-0.30) mg/dL Urine Clarity (Clear) Urine Protein (Neg-Trace) mg/dL Ur Leukocyte Esterase (Negative) Urine Bacteria (None) /hpf Urine Mucus (Occasional) /lpf Short CBC 05/22/18 Range/Units 07:59 WBC 4.6 (4.0-11.0) th/mm3 Hgb 8.4 L (11.6-15.3) gm/dL Hct 27.4 L (35.0-46.0) % Plt Count 323 (150-450) th/mm3 Urine 05/21/18 Range/Units 11:50 Urine Color Yessy (Yellw/Straw) Urine Clarity Hazy H (Clear) Urine pH 6.0 (5.0-8.5) Ur Specific [place] 1.020 (1.002-1.035) Urine Protein 30 H (Neg-Trace) mg/dL Urine Glucose (UA) Negative (Negative) mg/dL <Tip Gtz L - 05/22/18 10:56> Abnormal lab results 05/21/18 05/21/18 05/21/18 Range/Units 11:50 17:26 21:12 RBC (4.00-5.30) mil/mm3 Hgb (11.6-15.3) gm/dL Hct (35.0-46.0) % MCV (80.0-100.0) fL MCH (27.0-34.0) pg MCHC (32.0-36.0) % RDW (11.6-17.2) % MPV (7.0-11.0) fL [place] % (Auto) (0.0-8.0) % ESR (0-20) mm/hr POC Glucose 176 H 155 H (68-110) mg/dl C-Reactive Protein (0.00-0.30) mg/dL Urine Clarity Hazy H (Clear) Urine Protein 30 H (Neg-Trace) mg/dL Ur Leukocyte Esterase Trace H (Negative) Urine Bacteria Occasional H (None) /hpf Urine Mucus Few H (Occasional) /lpf 05/22/18 05/22/18 Range/Units 07:59 07:59 RBC 3.79 L (4.00-5.30) mil/mm3 Hgb 8.4 L (11.6-15.3) gm/dL Hct 27.4 L (35.0-46.0) % MCV 72.3 L (80.0-100.0) fL MCH 22.2 L (27.0-34.0) pg MCHC 30.7 L (32.0-36.0) % RDW 23.9 H (11.6-17.2) % MPV 6.9 L (7.0-11.0) fL [place] % (Auto) 11.2 H (0.0-8.0) % ESR Greater than 140 H (0-20) mm/hr POC Glucose (68-110) mg/dl C-Reactive Protein 2.30 H (0.00-0.30) mg/dL Urine Clarity (Clear) Urine Protein (Neg-Trace) mg/dL Ur Leukocyte Esterase (Negative) Urine Bacteria (None) /hpf Urine Mucus (Occasional) /lpf Short CBC 05/22/18 Range/Units 07:59 WBC 4.6 (4.0-11.0) th/mm3 Hgb 8.4 L (11.6-15.3) gm/dL Hct 27.4 L (35.0-46.0) % Plt Count 323 (150-450) th/mm3 Urine 05/21/18 Range/Units 11:50 Urine Color Yessy (Yellw/Straw) Urine Clarity Hazy H (Clear) Urine pH 6.0 (5.0-8.5) Ur Specific [place] 1.020 (1.002-1.035) Urine Protein 30 H (Neg-Trace) mg/dL Urine Glucose (UA) Negative (Negative) mg/dL <Sanket Cramer O - 05/22/18 10:13> Physical Exam Vital signs: Vital Signs 05/21/18 12:00 05/21/18 16:00 05/21/18 20:00 Temperature 98.3 F 100.9 F H 98.6 F Pulse Rate 91 H 99 H 94 H Respiratory Rate 18 17 18 Blood Pressure 98/55 L 125/72 129/60 Pulse Oximetry 100 100 98 05/21/18 22:54 05/22/18 00:00 05/22/18 07:40 Temperature 98.6 F 98.2 F Pulse Rate 84 79 Respiratory Rate 18 18 18 Blood Pressure 118/57 L 88/50 L Pulse Oximetry 99 99 Intake & Output 05/21/18 05/22/18 05/22/18 18:59 06:59 18:59 Intake Total 50 / 50 1213 / 1213 Output Total 1200 / 1200 1200 / 1200 Balance -1150 / -1150 Weight 45.7 kg Intake: IV 50 / 50 100 / 100 Ancef 2 GM Premix Inj 2 gm In 50 / 50 100 / 100 50 ml @ 100 mls/hr IV.SIG Q8H RENU Rx#:[id number] Oral 1113 / 1113 Output: Urine 1200 / 1200 1200 / 1200 Other: Date of Last Bowel Movement 05/21/18 05/21/18 # Bowel Movements 1 <Tip Gtz L - 05/22/18 10:56> Vital Signs 05/21/18 12:00 05/21/18 16:00 05/21/18 20:00 Temperature 98.3 F 100.9 F H 98.6 F Pulse Rate 91 H 99 H 94 H Respiratory Rate 18 17 18 Blood Pressure 98/55 L 125/72 129/60 Pulse Oximetry 100 100 98 05/21/18 22:54 05/22/18 00:00 05/22/18 07:40 Temperature 98.6 F 98.2 F Pulse Rate 84 79 Respiratory Rate 18 18 18 Blood Pressure 118/57 L 88/50 L Pulse Oximetry 99 99 Intake & Output 05/21/18 05/22/18 05/22/18 18:59 06:59 18:59 Intake Total 50 / 50 1213 / 1213 Output Total 1200 / 1200 1200 / 1200 Balance -1150 / -1150 Weight 45.7 kg Intake: IV 50 / 50 100 / 100 Ancef 2 GM Premix Inj 2 gm In 50 / 50 100 / 100 50 ml @ 100 mls/hr IV.SIG Q8H RENU Rx#:[id number] Oral 1112 / 111 Output: Urine 1200 / 1200 1200 / 1200 Other: Date of Last Bowel Movement 05/21/18 05/21/18 # Bowel Movements 1 <Sanket Cramer - 05/22/18 10:13> Narrative: Physical examination GENERAL: Patient is a cachectic, well-developed female, awake and alert, not in respiratory distress. Looks older than stated age. SKIN: Cool and dry. Healed track recinos in UE, a lot of scars in BLE. HEAD: Atraumatic. Normocephalic. EYES: Pupils equal, round and reactive to light. Extraocular movements full and intact. No scleral icterus. No injection or drainage. ENT: Mucous membranes pink and moist. No oral lesions noted. No exudate. Poor dentition. NECK: Trachea midline. Supple and not tender, no meningeal signs CARDIOVASCULAR: Regular rate and rhythm. No murmurs, rubs or gallops heard RESPIRATORY: Clear to auscultation. Breath sounds equal bilaterally. No rales , wheezing or rhonchi ABDOMEN: Soft, non-tender, nondistended. Bowel sounds present and normoactive. No guarding. No rebound. No organomegaly. EXTREMITIES: No clubbing, cyanosis. Incision of hip covered with clean bandage without signs of debris, bleeding, or infection. No calf tenderness. NEUROLOGICAL: Awake and alert. Cranial nerves grossly intact. Motor grossly within normal limits. PSYCHIATRIC: Normal affect, calm and cooperative. <Sanket Cramer - 05/22/18 10:13> Assessment and Plan - Assessment (1) Bacterial arthritis of right hip Code(s): M00.851 - Arthritis due to other bacteria, right hip Status: Acute (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 Code(s): I33.0 - Acute and subacute infective endocarditis; B95.8 - Unspecified staphylococcus as the cause of diseases classified elsewhere Status: Acute (3) Polysubstance abuse Code(s): F19.10 - Other psychoactive substance abuse, uncomplicated Status: Acute (4) Hepatitis C Code(s): B19.20 - Unspecified viral hepatitis C without hepatic coma Status: Acute (5) Anemia Code(s): D64.9 - Anemia, unspecified Status: Acute (6) Vaginal itching Code(s): N89.8 - Other specified noninflammatory disorders of vagina Status: Acute <Tip Gtz - 05/22/18 10:56> (1) Bacterial arthritis of right hip Code(s): M00.851 - Arthritis due to other bacteria, right hip Status: Acute Plan: 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 - Non weight bearing to RLE Con't pain medication regimen: Methadone PO 30 mg daily, wean over long-term Ibuprofen for pain 1-3 [place] 5/325 for pain 4-6 Morphine for severe pain/7-10 Gabapentin 300 mg TID for neuropathic pain PT for early mobilization - F/u ordered w/Dr. Cueva in 2 weeks. (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 Code(s): I33.0 - Acute and subacute infective endocarditis; B95.8 - Unspecified staphylococcus as the cause of diseases classified elsewhere Status: Acute Plan: MSSA+ On IV Ancef (started 05/14-), will need for total 6-8 weeks ID consulted to follow patient Infectious disease on board (3) Polysubstance abuse Code(s): F19.10 - Other psychoactive substance abuse, uncomplicated Status: Acute Plan: Hx of IVDU (heroin, dilaudid, and other narcotics) and smoker Con't methadone 30 mg daily, max allowance is 30-40 mg per day. Plan to wean in long-term Nicotine patches Case management to help with outpatient placement, preferably [facility] for drug rehab (4) Hepatitis C Code(s): B19.20 - Unspecified viral hepatitis C without hepatic coma Status: Acute Plan: Will require outpatient f/u and treatment (5) Anemia Code(s): D64.9 - Anemia, unspecified Status: Acute Plan: Stable Hx of anemia requiring 2 units PRBCs on 05/16 at [facility] Microcytic, likely 2/2 to iron def On daily Ferrous sulfate (6) Vaginal itching Code(s): N89.8 - Other specified noninflammatory disorders of vagina Status: Acute Plan: Improving, continue Monistat Fluids: none Electrolytes: as needed Nutrition: Regular diet DVT prophylaxis: Lovenox 40 mg daily SQ for 2 weeks per surgery recs ([facility]) - procedure was 05/16 GI prophylaxis: none FULL CODE <Sanket Cramer - 05/22/18 09:55> - Attending Attestation The exam, history, and the medical decision-making described in the above note were completed with the assistance of the resident physician. I reviewed and agree with the findings presented. I attest that I had a [id number] encounter with the patient on the same day, and personally performed and documented my assessment and findings in the medical record. I was present for the entire history and physical examination today. <Tip Gtz - 05/22/18 10:56>
--- NOTE | 2018-05-22 13:19 | P.PNID ---
Subjective Remarks: Patient is a 42-year-old female, with known IV drug use, has been in and out of the hospital and has signed out AMA on multiple occasions. She had been treated in the past for group A strep endocarditis, and at that time it was unclear whether she completed treatment. More recently she has had blood culture with MSSA starting in February. She was never fully evaluated for this since she had signed out AMA. I saw her the second week of January and at that time she had MSSA bacteremia. In the past she had evidence of vegetation in the mitral valve. During her last admission in the regular echo did not show any vegetation. She however signed out AGAINST MEDICAL ADVICE on May 09, and presented back to the hospital May 10 complaining of hip pain. She was evaluated and showed significant infection in the joint as well as the bone, so the patient was transferred to [facility]. She underwent emergent I&D of the right hip, and Girdlestone procedure. There was an aspiration of the fluid in the right hip prior to transfer and that grew MSSA. According to the records from [facility] the tissue culture so far did not grow any bacteria. Patient has been transferred back to [place] for continued treatment. Patient currently still complains of significant pain in her right hip. She has been ambulating in her room using a walker with no weightbearing to that right lower extremity. Her temps are okay she had one low-grade temp of 99+. Her blood cultures from the last admission in May 10 were negative. Infectious disease consultation has been requested to assist with evaluation and treatment. Notes reviewed Fever yesterday afternoon Pain is main issue Working with PT - ambultaes with walker, non-weight bearing on RLE UA ok WBC ok No rash NO diarrhea Antibiotics: Ancef Past Medical History: CVA (cerebral vascular accident) Endocarditis Hepatitis C IV drug abuse Laceration of kidney Hx of hand surgery Allergies/Adverse Reactions: Allergies No Known Allergies Allergy (Verified 05/10/18 18:14) Objective Vital Signs 05/21/18 16:00 05/21/18 20:00 05/21/18 22:54 Temperature 100.9 F H 98.6 F Pulse Rate 99 H 94 H Respiratory Rate 17 18 18 Blood Pressure 125/72 129/60 Pulse Oximetry 100 98 05/22/18 00:00 05/22/18 07:40 Temperature 98.6 F 98.2 F Pulse Rate 84 79 Respiratory Rate 18 18 Blood Pressure 118/57 L 88/50 L Pulse Oximetry 99 99 Intake & Output 05/21/18 05/22/18 05/22/18 18:59 06:59 18:59 Intake Total 50 / 50 1213 / 1213 Output Total 1200 / 1200 1200 / 1200 Balance -1150 / -1150 Weight 45.7 kg Intake: IV 50 / 50 100 / 100 Ancef 2 GM Premix Inj 2 gm In 50 / 50 100 / 100 50 ml @ 100 mls/hr IV.SIG Q8H RENU Rx#:[id number] Oral 1113 / 1113 Output: Urine 1200 / 1200 1200 / 1200 Other: Date of Last Bowel Movement 05/21/18 05/21/18 # Bowel Movements 1 05/21/18 12:45 Blood - Peripheral Aerobic Blood Culture - Preliminary No growth in 1 day 05/21/18 12:45 Blood - Peripheral Anaerobic Blood Culture - Preliminary No growth in 1 day 05/21/18 12:40 Blood - Peripheral Aerobic Blood Culture - Preliminary No growth in 1 day 05/21/18 12:40 Blood - Peripheral Anaerobic Blood Culture - Preliminary No growth in 1 day Lab - Hematology Results 05/21/18 05/22/18 06:52 07:59 WBC 4.3 4.6 RBC 4.00 3.79 L Hgb 8.8 L 8.4 L Hct 28.6 L 27.4 L MCV 71.5 L 72.3 L MCH 21.9 L 22.2 L MCHC 30.7 L 30.7 L RDW 24.3 H 23.9 H Plt Count 339 323 MPV 6.8 L 6.9 L Prelim Diff (Auto) Slide review pending Slide review pending Neut % (Auto) 50.4 46.6 Lymph % (Auto) 33.6 38.5 [place] % (Auto) 12.4 H 11.2 H Eos % (Auto) 2.5 2.8 Baso % (Auto) 1.1 0.9 Neut # (Auto) 2.2 2.1 Lymph # (Auto) 1.5 1.8 [place] # (Auto) 0.5 0.5 Eos # (Auto) 0.1 0.1 Baso # (Auto) 0.0 0.0 WBC Differential Manual diff final Manual diff final Seg Neuts % (Manual) 51 53 Band Neuts % (Manual) 5 1 Lymphocytes % (Manual) 28 33 Monocytes % (Manual) 10 H 9 H Eosinophils % (Manual) 1 2 Basophils % (Manual) 1 1 Metamyelocytes % (Man) 4 H Myelocytes % (Man) 1 H Abs Neuts (Manual) 2.6 2.5 Differential Comment . . Platelet Estimate Normal Normal Platelet Morphology Normal Normal Ovalocytes 1+ H 1+ H Acanthocytes (Sp[place]) Occ H ESR Greater than 140 H Greater than 140 H Lab - Chemistry Results 05/20/18 05/20/18 05/21/18 17:28 21:05 06:52 POC Glucose 262 H 146 H C-Reactive Protein 2.80 H 05/21/18 05/21/18 05/21/18 08:07 12:06 17:26 POC Glucose 151 H 89 176 H C-Reactive Protein 05/21/18 05/22/18 05/22/18 21:12 07:59 08:01 POC Glucose 155 H 82 C-Reactive Protein 2.30 H Physical Exam: GENERAL: Patient is a cachectic, well-developed female, awake and alert, not in respiratory distress. SKIN: Cool and dry. Healed track recinos in UE, a lot of scars in BLE. No ecchymoses and no evidence of embolic lesions. HEAD: Atraumatic. Normocephalic. No temporal wasting, or tenderness. EYES: [place] conjunctiva. No petechia or hemorrhage. Pupils equal, round and reactive to light. Extraocular movements full and intact. No scleral icterus. No injection or drainage. EARS, NOSE AND THROAT: Nose without bleeding or purulent nasal discharge. No sinus tenderness. Mucous membranes pink and moist. No oral lesions noted. No exudate. No oral thrush. Poor dentition NECK: Trachea midline. Supple and not tender, no meningeal signs CARDIOVASCULAR: Regular rate and rhythm. No murmurs, rubs or gallops heard RESPIRATORY: Clear to auscultation. Breath sounds equal bilaterally. No rales , wheezing or rhonchi ABDOMEN: Soft, non-tender, nondistended. Bowel sounds present and normoactive. No guarding. No rebound. No organomegaly. EXTREMITIES: No clubbing, cyanosis. Incision R hip dry with no redness, no drainage, tender to touch. No calf tenderness. NEUROLOGICAL: Awake and alert. Cranial nerves grossly intact. Motor grossly within normal limits. PSYCHIATRIC: Normal affect, calm and cooperative. 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
[2018-05-22] MEDS: traZODone 50 MG Tablet PO PRN (22:27)
[2018-05-23] MEDS: Morphine Inj 4 MG/ML Vial IV.PUSH PRN ×6 (02:37→23:13)
[2018-05-23] MEDS: ceFAZolin 2 GM Premix Inj 2 GM/50 ML PIGGYBACK IV.SIG SCH ×3 (05:23→20:59)
[2018-05-23 07:10] LABS: Baso # (Auto) 0.1 th/mm3 (0.0-0.2); Baso % (Auto) 1.1 % (0.0-2.0); Eos # (Auto) 0.2 th/mm3 (0.0-0.4); Eos % (Auto) 3.7 % (0.0-4.0); Hematocrit 26.3 % (35.0-46.0); Hemoglobin 8.2 gm/dL (11.6-15.3); Lymph # (Auto) 1.7 th/mm3 (1.0-4.8); Lymph % (Auto) 37.2 % (9.0-44.0); Mean Corpuscular HGB Conc 31.2 % (32.0-36.0); Mean Corpuscular Hemoglobin 22.3 pg (27.0-34.0); Mean Corpuscular Volume 71.4 fL (80.0-100.0); Mean Platelet Volume 7.1 fL (7.0-11.0); Mono # (Auto) 0.5 th/mm3 (0.0-0.9); Mono % (Auto) 11.1 % (0.0-8.0); Neut # (Auto) 2.2 th/mm3 (1.8-7.7); Neut % (Auto) 46.9 % (16.0-70.0); Platelet Count 309 th/mm3 (150-450); Red Blood Count 3.69 mil/mm3 (4.00-5.30); White Blood Count 4.7 th/mm3 (4.0-11.0)
[2018-05-23 07:51] LABS: Dimorphic RBC Present; Platelet Estimate Normal (Normal); Platelet Morphology Normal (Normal)
[2018-05-23] MEDS: Senna/Docusate Sodium 8.6/50 MG Tablet PO SCH ×2 (08:29→21:01)
[2018-05-23] MEDS: Gabapentin 300 MG Capsule PO SCH ×3 (08:29→18:06)
[2018-05-23] MEDS: Ferrous Sulfate 325 MG Tablet PO SCH (08:29)
[2018-05-23] MEDS: Enoxaparin Inj 40 MG/0.4 ML Syringe SQ SCH (08:31)
--- NOTE | 2018-05-23 09:35 | P.PNFP ---
Subjective Interval history: Patient was seen at bedside this morning. Patient had no acute events overnight. Patient reports decreased pain over the hip. She attributes her decreased pain due to additional Motrin she is receiving. She otherwise feels well. Her prognosis for his walking was discussed with patient this morning, she was emotionally distraught but recovered quickly. Patient continues to be optimistic about her recovery and looks forward to a drug free life. Current treatment and plan was discussed, patient reported understanding, had no further questions, and thanked us for our care. Results - Labs Result diagrams: 05/23/18 06:34 05/20/18 07:51 Abnormal lab results 05/22/18 05/23/18 05/23/18 Range/Units 07:59 06:34 06:34 RBC 3.69 L (4.00-5.30) mil/mm3 Hgb 8.2 L (11.6-15.3) gm/dL Hct 26.3 L (35.0-46.0) % MCV 71.4 L (80.0-100.0) fL MCH 22.3 L (27.0-34.0) pg MCHC 31.2 L (32.0-36.0) % RDW 24.0 H (11.6-17.2) % [place] % (Auto) 11.1 H (0.0-8.0) % Monocytes % (Manual) 9 H (0-8) % Myelocytes % (Man) 1 H (0-0) % Dimorphic RBCs Present H (None) Ovalocytes 1+ H (None) ESR Greater than 140 H Greater than 140 H (0-20) mm/hr Short CBC 05/23/18 Range/Units 06:34 WBC 4.7 (4.0-11.0) th/mm3 Hgb 8.2 L (11.6-15.3) gm/dL Hct 26.3 L (35.0-46.0) % Plt Count 309 (150-450) th/mm3 Physical Exam Vital signs: Vital Signs 05/22/18 11:55 05/22/18 16:25 05/22/18 20:00 Temperature 97.6 F 98.0 F 98.8 F Pulse Rate 96 H 94 H 94 H Respiratory Rate 16 17 16 Blood Pressure 109/58 L 116/56 L 114/59 L Pulse Oximetry 100 100 96 05/23/18 00:00 05/23/18 00:26 05/23/18 08:00 Temperature 98.3 F 97.2 F L Pulse Rate 96 H 70 Respiratory Rate 17 16 17 Blood Pressure 124/67 114/55 L Pulse Oximetry 94 L 100 Intake & Output 05/22/18 05/23/18 05/23/18 18:59 06:59 18:59 Intake Total 1730 / 1730 1540 / 1540 Balance 1730 / 1730 1540 / 1540 Weight 45.1 kg Intake: IV 50 / 50 100 / 100 Ancef 2 GM Premix Inj 2 gm In 50 / 50 100 / 100 50 ml @ 100 mls/hr IV.SIG Q8H RENU Rx#:[id number] Oral 1680 / 1680 1440 / 1440 Other: # Voids 3 6 Date of Last Bowel Movement 05/22/18 05/22/18 # Bowel Movements 1 Narrative: Physical examination GENERAL: Patient is a cachectic, well-developed female, awake and alert, not in respiratory distress. Looks older than stated age. SKIN: Cool and dry. Healed track recinos in UE, a lot of scars in BLE. Patient has a stage II sacral ulcer. The ulcers approximately 1.5 cm in diameter. No surrounding erythema or signs of infection. No drainage. EYES: Pupils equal, round and reactive to light. Extraocular movements full and intact. No scleral icterus. No injection or drainage. ENT: Mucous membranes pink and moist. No oral lesions noted. No exudate. Poor dentition. CARDIOVASCULAR: Regular rate and rhythm. No murmurs, rubs or gallops heard RESPIRATORY: Clear to auscultation. Breath sounds equal bilaterally. No rales , wheezing or rhonchi ABDOMEN: Soft, non-tender, nondistended. Bowel sounds present and normoactive. No guarding. No rebound. No organomegaly. EXTREMITIES: No clubbing, cyanosis. Incision of hip covered with clean bandage without signs of debris, bleeding, or infection. No calf tenderness. NEUROLOGICAL: Awake and alert. Cranial nerves grossly intact. Motor grossly within normal limits. PSYCHIATRIC: Normal affect, calm and cooperative. Assessment and Plan - Assessment (1) Bacterial arthritis of right hip Code(s): M00.851 - Arthritis due to other bacteria, right hip Status: Acute Plan: S/p Right proximal femur resection (Girdlestone type) 05/16/2018 Tissue cx from 05/16 negative for growth On IV Ancef Day #9 ID consulted on board: Plan: Con't pain medication regimen: Methadone PO 30 mg daily, wean over long-term Ibuprofen for pain 1-3 [place] 5/325 for pain 4-6 Morphine for severe pain/7-10 Gabapentin 300 mg TID for neuropathic pain PT for early mobilization - F/u ordered w/Dr. Cueva in 2 weeks, but patient may be here for longer due to antibiotic treatment. 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 Patient not up and moving as well as physical therapy. -Continue to monitor -Continue mobilization with physical therapy (4) Polysubstance abuse Code(s): F19.10 - Other psychoactive substance abuse, uncomplicated Status: Acute Plan: Hx of IVDU (heroin, dilaudid, and other narcotics) and smoker Con't methadone 30 mg daily, max allowance is 30-40 mg per day. Plan to wean in long-term Nicotine patches Case management to help with outpatient placement, preferably [facility] for drug rehab (5) Hepatitis C Code(s): B19.20 - Unspecified viral hepatitis C without hepatic coma Status: Acute Plan: Will require outpatient f/u and treatment (6) Anemia Code(s): D64.9 - Anemia, unspecified Status: Acute Plan: Stable Hx of anemia requiring 2 units PRBCs on 05/16 at [facility] Microcytic, likely 2/2 to iron def On daily Ferrous sulfate (7) Vaginal itching Code(s): N89.8 - Other specified noninflammatory disorders of vagina Status: Resolved Plan: Resolved Fluids: none Electrolytes: as needed Nutrition: Regular diet DVT prophylaxis: Lovenox 40 mg daily SQ for 2 weeks per surgery recs ([facility]) - procedure was 05/16 GI prophylaxis: none FULL CODE
[2018-05-23 12:57] LABS: Hemoglobin A1c 5.9 % (4.3-6.0)
[2018-05-23] MEDS: Methadone 10 MG Tablet PO SCH (14:37)
--- NOTE | 2018-05-23 15:51 | P.PNID ---
Subjective Remarks: Patient is a 42-year-old female, with known IV drug use, has been in and out of the hospital and has signed out AMA on multiple occasions. She had been treated in the past for group A strep endocarditis, and at that time it was unclear whether she completed treatment. More recently she has had blood culture with MSSA starting in February. She was never fully evaluated for this since she had signed out AMA. I saw her the second week of January and at that time she had MSSA bacteremia. In the past she had evidence of vegetation in the mitral valve. During her last admission in the regular echo did not show any vegetation. She however signed out AGAINST MEDICAL ADVICE on May 09, and presented back to the hospital May 10 complaining of hip pain. She was evaluated and showed significant infection in the joint as well as the bone, so the patient was transferred to [facility]. She underwent emergent I&D of the right hip, and Girdlestone procedure. There was an aspiration of the fluid in the right hip prior to transfer and that grew MSSA. According to the records from [facility] the tissue culture so far did not grow any bacteria. Patient has been transferred back to [place] for continued treatment. Patient currently still complains of significant pain in her right hip. She has been ambulating in her room using a walker with no weightbearing to that right lower extremity. Her temps are okay she had one low-grade temp of 99+. Her blood cultures from the last admission in May 10 were negative. Infectious disease consultation has been requested to assist with evaluation and treatment. Notes reviewed Temps better Pain better BC negative UA ok WBC ok No rash NO diarrhea Antibiotics: Ancef Past Medical History: CVA (cerebral vascular accident) Endocarditis Hepatitis C IV drug abuse Laceration of kidney Hx of hand surgery Allergies/Adverse Reactions: Allergies No Known Allergies Allergy (Verified 05/10/18 18:14) Objective Vital Signs 05/22/18 16:25 05/22/18 20:00 05/23/18 00:00 Temperature 98.0 F 98.8 F 98.3 F Pulse Rate 94 H 94 H 96 H Respiratory Rate 17 16 17 Blood Pressure 116/56 L 114/59 L 124/67 Pulse Oximetry 100 96 94 L 05/23/18 00:26 05/23/18 08:00 05/23/18 12:00 Temperature 97.2 F L 97.9 F Pulse Rate 70 92 H Respiratory Rate 16 17 18 Blood Pressure 114/55 L 122/56 L Pulse Oximetry 100 99 Intake & Output 05/22/18 05/23/18 05/23/18 18:59 06:59 18:59 Intake Total 1730 / 1730 1540 / 1540 1070 / 1070 Balance 1730 / 1730 1540 / 1540 1070 / 1070 Weight 45.1 kg Intake: IV 50 / 50 100 / 100 50 / 50 Ancef 2 GM Premix Inj 2 gm In 50 / 50 100 / 100 50 / 50 50 ml @ 100 mls/hr IV.SIG Q8H RENU Rx#:[id number] Oral 1680 / 1680 1440 / 1440 1020 / 1020 Other: # Voids 3 6 Date of Last Bowel Movement 05/22/18 05/22/18 # Bowel Movements 1 05/21/18 12:45 Blood - Peripheral Aerobic Blood Culture - Preliminary No growth in 2 days 05/21/18 12:45 Blood - Peripheral Anaerobic Blood Culture - Preliminary No growth in 2 days 05/21/18 12:40 Blood - Peripheral Aerobic Blood Culture - Preliminary No growth in 2 days 05/21/18 12:40 Blood - Peripheral Anaerobic Blood Culture - Preliminary No growth in 2 days Lab - Hematology Results 05/22/18 05/23/18 05/23/18 07:59 06:34 06:34 WBC 4.6 4.7 RBC 3.79 L 3.69 L Hgb 8.4 L 8.2 L Hct 27.4 L 26.3 L MCV 72.3 L 71.4 L MCH 22.2 L 22.3 L MCHC 30.7 L 31.2 L RDW 23.9 H 24.0 H Plt Count 323 309 MPV 6.9 L 7.1 Prelim Diff (Auto) Slide review pending Slide review pending Neut % (Auto) 46.6 46.9 Lymph % (Auto) 38.5 37.2 [place] % (Auto) 11.2 H 11.1 H Eos % (Auto) 2.8 3.7 Baso % (Auto) 0.9 1.1 Neut # (Auto) 2.1 2.2 Lymph # (Auto) 1.8 1.7 [place] # (Auto) 0.5 0.5 Eos # (Auto) 0.1 0.2 Baso # (Auto) 0.0 0.1 WBC Differential Manual diff final . Diff Scan Auto diff confirmed Seg Neuts % (Manual) 53 Band Neuts % (Manual) 1 Lymphocytes % (Manual) 33 Monocytes % (Manual) 9 H Eosinophils % (Manual) 2 Basophils % (Manual) 1 Myelocytes % (Man) 1 H Abs Neuts (Manual) 2.5 Differential Comment . . Platelet Estimate Normal Normal Platelet Morphology Normal Normal Dimorphic RBCs Present H Ovalocytes 1+ H ESR Greater than 140 H Greater than 140 H Lab - Chemistry Results 05/21/18 05/21/18 05/22/18 17:26 21:12 07:59 POC Glucose 176 H 155 H Hemoglobin A1c C-Reactive Protein 2.30 H 05/22/18 05/23/18 08:01 06:34 POC Glucose 82 Hemoglobin A1c 5.9 C-Reactive Protein Physical Exam: GENERAL: Patient is a cachectic, well-developed female, awake and alert, not in respiratory distress. SKIN: Cool and dry. Healed track recinos in UE, a lot of scars in BLE. No ecchymoses and no evidence of embolic lesions. HEAD: Atraumatic. Normocephalic. No temporal wasting, or tenderness. EYES: [place] conjunctiva. No petechia or hemorrhage. Pupils equal, round and reactive to light. Extraocular movements full and intact. No scleral icterus. No injection or drainage. EARS, NOSE AND THROAT: Nose without bleeding or purulent nasal discharge. No sinus tenderness. Mucous membranes pink and moist. No oral lesions noted. No exudate. No oral thrush. Poor dentition NECK: Trachea midline. Supple and not tender, no meningeal signs CARDIOVASCULAR: Regular rate and rhythm. No murmurs, rubs or gallops heard RESPIRATORY: Clear to auscultation. Breath sounds equal bilaterally. No rales , wheezing or rhonchi ABDOMEN: Soft, non-tender, nondistended. Bowel sounds present and normoactive. No guarding. No rebound. No organomegaly. EXTREMITIES: No clubbing, cyanosis. Incision R hip dry with no redness, no drainage, tender to touch. No calf tenderness. NEUROLOGICAL: Awake and alert. Cranial nerves grossly intact. Motor grossly within normal limits. PSYCHIATRIC: Normal affect, calm and cooperative. 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
[2018-05-23] MEDS: traZODone 50 MG Tablet PO PRN (20:58)
[2018-05-24] MEDS: Morphine Inj 4 MG/ML Vial IV.PUSH PRN ×4 (04:35→17:25)
[2018-05-24] MEDS: ceFAZolin 2 GM Premix Inj 2 GM/50 ML PIGGYBACK IV.SIG SCH ×3 (04:41→20:10)
[2018-05-24 06:52] LABS: Baso # (Auto) 0.1 th/mm3 (0.0-0.2); Baso % (Auto) 1.1 % (0.0-2.0); Eos # (Auto) 0.1 th/mm3 (0.0-0.4); Eos % (Auto) 2.5 % (0.0-4.0); Hemoglobin 8.5 gm/dL (11.6-15.3); Lymph # (Auto) 1.5 th/mm3 (1.0-4.8); Mean Corpuscular HGB Conc 31.4 % (32.0-36.0); Mean Corpuscular Hemoglobin 22.5 pg (27.0-34.0); Mean Corpuscular Volume 71.7 fL (80.0-100.0); Mean Platelet Volume 7.2 fL (7.0-11.0); Mono # (Auto) 0.6 th/mm3 (0.0-0.9); Mono % (Auto) 11.2 % (0.0-8.0); Neut # (Auto) 2.9 th/mm3 (1.8-7.7); Neut % (Auto) 56.2 % (16.0-70.0); Platelet Count 355 th/mm3 (150-450); Red Blood Count 3.76 mil/mm3 (4.00-5.30); Red Cell Distribution Width 23.8 % (11.6-17.2); White Blood Count 5.2 th/mm3 (4.0-11.0)
[2018-05-24 07:12] LABS: Anion Gap 4 meq/L (5-15); Blood Urea Nitrogen 11 mg/dL (7-18); Calcium 8.6 mg/dL (8.5-10.1); Carbon Dioxide 34.8 meq/L (21.0-32.0); Chloride 99 meq/L (98-107); Glomerular Filtration Rate Greater Than 89 mL/min (>89); Glucose,Random 98 mg/dL (74-106); Sodium 138 meq/L (136-145)
[2018-05-24] MEDS ORDERED: Methadone 10 MG Tablet PO SCH (09:00)
[2018-05-24 09:01] LABS: Dimorphic RBC Present; Lymphocytes 17 % (9-44); Metamyelocytes 2 % (0-1); Monocytes 13 % (0-8); Platelet Estimate Normal (Normal); Platelet Morphology Normal (Normal); Stomatocytes 1+
[2018-05-24] MEDS: Gabapentin 300 MG Capsule PO SCH ×3 (09:04→17:25)
[2018-05-24] MEDS: Enoxaparin Inj 40 MG/0.4 ML Syringe SQ SCH (09:04)
[2018-05-24] MEDS: Ferrous Sulfate 325 MG Tablet PO SCH (09:04)
[2018-05-24] MEDS: Senna/Docusate Sodium 8.6/50 MG Tablet PO SCH ×2 (09:05→20:11)
[2018-05-24] MEDS: Methadone 10 MG Tablet PO SCH (11:39)
--- NOTE | 2018-05-24 12:43 | P.PNFP ---
Subjective Interval history: Patient is complaining of right lower extremity swelling with some associated muscle soreness in the anterior alvarado and thigh. Discussed plan to get ultrasound Doppler of the right lower extremity to rule out DVT. Otherwise, she reports feeling well. She reports that she is been up in her chair from 430 -1030. She reports eating well and is requesting more food. Ordered her double portions. <Janki HessJuan - 05/24/18 13:47> Results - Labs Result diagrams: 05/24/18 06:17 05/24/18 06:17 <Tip Gtz - 05/24/18 14:07> Abnormal lab results 05/24/18 05/24/18 Range/Units 06:17 06:17 RBC 3.76 L (4.00-5.30) mil/mm3 Hgb 8.5 L (11.6-15.3) gm/dL Hct 27.0 L (35.0-46.0) % MCV 71.7 L (80.0-100.0) fL MCH 22.5 L (27.0-34.0) pg MCHC 31.4 L (32.0-36.0) % RDW 23.8 H (11.6-17.2) % Gates % (Auto) 11.2 H (0.0-8.0) % Monocytes % (Manual) 13 H (0-8) % Basophils % (Manual) 4 H (0-2) % Metamyelocytes % (Man) 2 H (0-1) % Dimorphic RBCs Present H (None) Stomatocytes 1+ H (None) Carbon Dioxide 34.8 H (21.0-32.0) meq/L Anion Gap 4 L (5-15) meq/L Short CBC 05/24/18 Range/Units 06:17 WBC 5.2 (4.0-11.0) th/mm3 Hgb 8.5 L (11.6-15.3) gm/dL Hct 27.0 L (35.0-46.0) % Plt Count 355 (150-450) th/mm3 BMP 05/24/18 06:17 Sodium 138 Potassium 4.0 Chloride 99 Carbon Dioxide 34.8 H BUN 11 Creatinine 0.62 Calcium 8.6 <Tip Gtz - 05/24/18 14:07> Abnormal lab results 05/24/18 05/24/18 Range/Units 06:17 06:17 RBC 3.76 L (4.00-5.30) mil/mm3 Hgb 8.5 L (11.6-15.3) gm/dL Hct 27.0 L (35.0-46.0) % MCV 71.7 L (80.0-100.0) fL MCH 22.5 L (27.0-34.0) pg MCHC 31.4 L (32.0-36.0) % RDW 23.8 H (11.6-17.2) % Gates % (Auto) 11.2 H (0.0-8.0) % Monocytes % (Manual) 13 H (0-8) % Basophils % (Manual) 4 H (0-2) % Metamyelocytes % (Man) 2 H (0-1) % Dimorphic RBCs Present H (None) Stomatocytes 1+ H (None) Carbon Dioxide 34.8 H (21.0-32.0) meq/L Anion Gap 4 L (5-15) meq/L Short CBC 05/24/18 Range/Units 06:17 WBC 5.2 (4.0-11.0) th/mm3 Hgb 8.5 L (11.6-15.3) gm/dL Hct 27.0 L (35.0-46.0) % Plt Count 355 (150-450) th/mm3 BMP 05/24/18 06:17 Sodium 138 Potassium 4.0 Chloride 99 Carbon Dioxide 34.8 H BUN 11 Creatinine 0.62 Calcium 8.6 <Tip Balderas - 05/24/18 12:43> - Imaging Impressions Venous Doppler Study 05/24/18 00:00 CONCLUSION: 1. The study is negative for lower extremity deep venous thrombosis. <Tpi Gtz - 05/24/18 14:07> Physical Exam Vital signs: Vital Signs 05/23/18 16:00 05/23/18 20:00 05/23/18 22:28 Temperature 98.2 F 98.1 F Pulse Rate 97 H Respiratory Rate 19 20 18 Blood Pressure 115/56 L 126/69 Pulse Oximetry 99 99 05/24/18 00:00 05/24/18 08:00 05/24/18 09:05 Temperature 97.1 F L 98 F Pulse Rate 88 87 Respiratory Rate 20 16 16 Blood Pressure 118/62 105/63 Pulse Oximetry 99 99 05/24/18 12:00 Temperature 97.5 F L Pulse Rate 113 H Respiratory Rate 17 Blood Pressure 116/67 Pulse Oximetry 98 Intake & Output 05/23/18 05/24/18 05/24/18 18:59 06:59 18:59 Intake Total 1330 / 1330 340 / 340 1000 / 1000 Balance 1330 / 1330 340 / 340 1000 / 1000 Weight 47.6 kg Intake: IV 50 / 50 100 / 100 Ancef 2 GM Premix Inj 2 gm In 50 / 50 100 / 100 50 ml @ 100 mls/hr IV.SIG Q8H RENU Rx#:[id number] Oral 1280 / 1280 240 / 240 1000 / 1000 Other: # Voids 3 3 Date of Last Bowel Movement 05/23/18 # Bowel Movements 1 <Tip Gtz Genaro - 05/24/18 14:07> Vital Signs 05/23/18 16:00 05/23/18 20:00 05/23/18 22:28 Temperature 98.2 F 98.1 F Pulse Rate 97 H Respiratory Rate 19 20 18 Blood Pressure 115/56 L 126/69 Pulse Oximetry 99 99 05/24/18 00:00 05/24/18 08:00 05/24/18 09:05 Temperature 97.1 F L 98 F Pulse Rate 88 87 Respiratory Rate 20 16 16 Blood Pressure 118/62 105/63 Pulse Oximetry 99 99 Intake & Output 05/23/18 05/24/18 05/24/18 18:59 06:59 18:59 Intake Total 1330 / 1330 340 / 340 480 / 480 Balance 1330 / 1330 340 / 340 480 / 480 Weight 47.6 kg Intake: IV 50 / 50 100 / 100 Ancef 2 GM Premix Inj 2 gm In 50 / 50 100 / 100 50 ml @ 100 mls/hr IV.SIG Q8H RENU Rx#:[id number] Oral 1280 / 1280 240 / 240 480 / 480 Other: # Voids 3 3 Date of Last Bowel Movement 05/23/18 # Bowel Movements 1 <Tip Balderas A - 05/24/18 12:43> Narrative: Physical examination GENERAL: Patient is a cachectic female, awake and alert, not in respiratory distress. Looks older than stated age. SKIN: Cool and dry. Healed track recinos in UE, a lot of scars in BLE. Patient has a stage II sacral ulcer. The ulcers approximately 1.5 cm in diameter. No surrounding erythema or signs of infection. No drainage. EYES: Pupils equal, round and reactive to light. Extraocular movements full and intact. No scleral icterus. No injection or drainage. ENT: Mucous membranes pink and moist. No oral lesions noted. No exudate. Poor dentition. CARDIOVASCULAR: Tachycardic rate and regular rhythm. RESPIRATORY: Clear to auscultation. Breath sounds equal bilaterally. No rales , wheezing or rhonchi ABDOMEN: Soft, non-tender, nondistended. No guarding. No rebound. EXTREMITIES: 2+ pitting edema of right lower extremity to the knee. No clubbing, cyanosis. Incision of hip covered with clean bandage without signs of debris, bleeding, or infection. No calf tenderness BL. NEUROLOGICAL: Awake and alert. Cranial nerves grossly intact. Motor grossly within normal limits. PSYCHIATRIC: Normal affect, calm and cooperative. <Tip Balderas - 05/24/18 12:56> Assessment and Plan - Assessment (1) Bacterial arthritis of right hip Code(s): M00.851 - Arthritis due to other bacteria, right hip Status: Acute (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 Code(s): I33.0 - Acute and subacute infective endocarditis; B95.8 - Unspecified staphylococcus as the cause of diseases classified elsewhere Status: Acute (3) Leg swelling Code(s): M79.89 - Other specified soft tissue disorders Status: Acute (4) Stage II pressure ulcer of sacral region Code(s): L89.152 - Pressure ulcer of sacral region, stage 2 Status: Acute (5) Polysubstance abuse Code(s): F19.10 - Other psychoactive substance abuse, uncomplicated Status: Acute (6) Hepatitis C Code(s): B19.20 - Unspecified viral hepatitis C without hepatic coma Status: Acute (7) Anemia Code(s): D64.9 - Anemia, unspecified Status: Acute (8) Vaginal itching Code(s): N89.8 - Other specified noninflammatory disorders of vagina Status: Resolved (9) Cachexia Code(s): R64 - Cachexia Status: Acute <Tip Gtz - 05/24/18 14:07> (1) Bacterial arthritis of right hip Code(s): M00.851 - Arthritis due to other bacteria, right hip Status: Acute Plan: S/p Right proximal femur resection (Girdlestone type) 05/16/2018 Tissue cx from 05/16 negative for growth On IV Ancef (05/14-present), ID consulted and appreciated: Recommendations Follow C/S questionable possibility of ANNA - it is unlikely to change our management: she will get medical Rx, and she is not a surgical candidate if she needs valve surgery due to her ongoing IVDU and poor compliance to Rx She will need Rx for osteomyelitis - at least 6-8 weeks IV Abx Follow labs while on IV Abx: weekly CBC, creatinine Continue Ancef Follow temps Monitor progress Plan: Con't pain medication regimen: Methadone PO 30 mg daily, wean over long-term Ibuprofen for pain 1-3 [place] 5/325 for pain 4-6 Morphine for severe pain/7-10 Gabapentin 300 mg TID for neuropathic pain PT for early mobilization - F/u ordered w/Dr. Cueva in 2 weeks, but patient may be here for longer due to antibiotic treatment. 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 (4) Stage II pressure ulcer of sacral region Code(s): L89.152 - Pressure ulcer of sacral region, stage 2 Status: Acute Plan: Pressure ulcer over sacral region now healing. -physical therapy recommended wheeled walker -Continue to monitor -Continue mobilization with physical therapy (5) Polysubstance abuse Code(s): F19.10 - Other psychoactive substance abuse, uncomplicated Status: Acute Plan: Hx of IVDU (heroin, dilaudid, and other narcotics) and smoker Con't methadone 30 mg daily, max allowance is 30-40 mg per day. Plan to wean in long-term Nicotine patches Case management to help with outpatient placement, preferably [facility] for drug rehab (6) Hepatitis C Code(s): B19.20 - Unspecified viral hepatitis C without hepatic coma Status: Acute Plan: Will require outpatient f/u and treatment (7) Anemia Code(s): D64.9 - Anemia, unspecified Status: Acute Plan: Stable Hx of anemia requiring 2 units PRBCs on 05/16 at [facility] Microcytic, likely 2/2 to iron def On daily Ferrous sulfate (8) Vaginal itching Code(s): N89.8 - Other specified noninflammatory disorders of vagina Status: Resolved Plan: Resolved Fluids: none Electrolytes: as needed Nutrition: Regular diet DVT prophylaxis: Lovenox 40 mg daily SQ for 2 weeks per surgery recs ([facility]) - procedure was 05/16 GI prophylaxis: none FULL CODE (9) Cachexia Code(s): R64 - Cachexia Status: Acute Plan: -ordered double portions <Tip Balderas - 05/24/18 13:47> - Attending Attestation The exam, history, and the medical decision-making described in the above note were completed with the assistance of the resident physician. I reviewed and agree with the findings presented. I attest that I had a [id number] encounter with the patient on the same day, and personally performed and documented my assessment and findings in the medical record. I was present with Dr. Vigil and Dr. Shearer for the entirety of the physical exam and history. <Tip Gtz - 05/24/18 14:07>
--- NOTE | 2018-05-24 13:55 | US ---
EXAM DATE: 05/24/2018 1:26 PM EST AGE/SEX: 42 years / Female INDICATIONS: Right leg swelling. CLINICAL DATA: This is the patient's initial encounter. Patient reports that signs and symptoms have been present for 1 week and indicates a pain score of 3/10. MEDICAL/SURGICAL HISTORY: Hepatitis C. CVA. Endocarditis. IV drug abuse. Laceration of kidney. . Hand surgery. COMPARISON: No prior exams available for comparison. TECHNIQUE: Venous ultrasound of both lower extremities was performed from the inguinal ligament to t he proximal calf. Real-time, color Doppler and spectral tracing, compression and augmentation techni ques were used. FINDINGS: Normal compression of the deep venous system from the inguinal region to the proximal calf . No echogenic clot is seen. Normal response of the venous system to augmentation and respiration. CONCLUSION: 1. The study is negative for lower extremity deep venous thrombosis. Electronically signed by: Laurie Calderon MD Board Certified Radiologist 05/24/2018 1:54 PM EST
[2018-05-25] MEDS: Morphine Inj 4 MG/ML Vial IV.PUSH PRN ×5 (01:07→22:14)
[2018-05-25] MEDS: ceFAZolin 2 GM Premix Inj 2 GM/50 ML PIGGYBACK IV.SIG SCH ×3 (05:04→20:32)
[2018-05-25 06:52] LABS: Anion Gap 4 meq/L (5-15); Blood Urea Nitrogen 14 mg/dL (7-18); Calcium 9.2 mg/dL (8.5-10.1); Carbon Dioxide 33.4 meq/L (21.0-32.0); Chloride 102 meq/L (98-107); Glomerular Filtration Rate Greater Than 89 mL/min (>89); Glucose,Random 83 mg/dL (74-106); Potassium 4.3 meq/L (3.5-5.1); Sodium 139 meq/L (136-145)
[2018-05-25 07:26] LABS: Baso # (Auto) 0.1 th/mm3 (0.0-0.2); Baso % (Auto) 1.3 % (0.0-2.0); Eos # (Auto) 0.2 th/mm3 (0.0-0.4); Eos % (Auto) 2.7 % (0.0-4.0); Hematocrit 26.7 % (35.0-46.0); Lymph # (Auto) 2.1 th/mm3 (1.0-4.8); Lymph % (Auto) 35.5 % (9.0-44.0); Mean Corpuscular HGB Conc 33.7 % (32.0-36.0); Mean Corpuscular Hemoglobin 23.9 pg (27.0-34.0); Mean Corpuscular Volume 70.9 fL (80.0-100.0); Mean Platelet Volume 7.6 fL (7.0-11.0); Mono # (Auto) 0.5 th/mm3 (0.0-0.9); Mono % (Auto) 7.7 % (0.0-8.0); Neut # (Auto) 3.1 th/mm3 (1.8-7.7); Neut % (Auto) 52.8 % (16.0-70.0); Platelet Count 393 th/mm3 (150-450); Red Blood Count 3.77 mil/mm3 (4.00-5.30); Red Cell Distribution Width 24.4 % (11.6-17.2); White Blood Count 5.9 th/mm3 (4.0-11.0)
--- NOTE | 2018-05-25 09:54 | P.PNID ---
Subjective Remarks: Patient is a 42-year-old female, with known IV drug use, has been in and out of the hospital and has signed out AMA on multiple occasions. She had been treated in the past for group A strep endocarditis, and at that time it was unclear whether she completed treatment. More recently she has had blood culture with MSSA starting in February. She was never fully evaluated for this since she had signed out AMA. I saw her the second week of January and at that time she had MSSA bacteremia. In the past she had evidence of vegetation in the mitral valve. During her last admission in the regular echo did not show any vegetation. She however signed out AGAINST MEDICAL ADVICE on May 09, and presented back to the hospital May 10 complaining of hip pain. She was evaluated and showed significant infection in the joint as well as the bone, so the patient was transferred to [facility]. She underwent emergent I&D of the right hip, and Girdlestone procedure. There was an aspiration of the fluid in the right hip prior to transfer and that grew MSSA. According to the records from [facility] the tissue culture so far did not grow any bacteria. Patient has been transferred back to [place] for continued treatment. Patient currently still complains of significant pain in her right hip. She has been ambulating in her room using a walker with no weightbearing to that right lower extremity. Her temps are okay she had one low-grade temp of 99+. Her blood cultures from the last admission in May 10 were negative. Infectious disease consultation has been requested to assist with evaluation and treatment. Notes reviewed Temps ok Pain better Notes RLE swelling US shows no DVT RLE BC negative UA ok WBC ok No rash NO diarrhea ESR >140 CRP 2.3 Antibiotics: Ancef Past Medical History: CVA (cerebral vascular accident) Endocarditis Hepatitis C IV drug abuse Laceration of kidney Hx of hand surgery Allergies/Adverse Reactions: Allergies No Known Allergies Allergy (Verified 05/10/18 18:14) Objective Vital Signs 05/24/18 12:00 05/24/18 12:10 05/24/18 13:01 Temperature 97.5 F L Pulse Rate 113 H Respiratory Rate 17 16 16 Blood Pressure 116/67 Pulse Oximetry 98 05/24/18 16:00 05/24/18 17:30 05/24/18 20:00 Temperature 98 F 98.1 F Pulse Rate 84 104 H Respiratory Rate 16 16 18 Blood Pressure 97/55 L 108/63 Pulse Oximetry 98 96 05/24/18 20:41 05/25/18 00:00 05/25/18 01:09 Temperature 97.2 F L Pulse Rate 72 Respiratory Rate 16 18 18 Blood Pressure 105/55 L Pulse Oximetry 99 05/25/18 05:15 05/25/18 08:00 Temperature 98.0 F Pulse Rate 119 H Respiratory Rate 17 20 Blood Pressure 125/71 Pulse Oximetry 99 Intake & Output 05/24/18 05/25/18 05/25/18 18:59 06:59 18:59 Intake Total 1570 / 1570 520 / 520 Balance 1570 / 1570 520 / 520 Weight 46.5 kg Intake: IV 50 / 50 100 / 100 Ancef 2 GM Premix Inj 2 gm In 50 / 50 100 / 100 50 ml @ 100 mls/hr IV.SIG Q8H RENU Rx#:[id number] Oral 1520 / 1520 420 / 420 Other: # Voids 4 3 Date of Last Bowel Movement 05/24/18 05/24/18 # Bowel Movements 2 1 05/21/18 12:45 Blood - Peripheral Aerobic Blood Culture - Preliminary No growth in 3 days 05/21/18 12:45 Blood - Peripheral Anaerobic Blood Culture - Preliminary No growth in 3 days 05/21/18 12:40 Blood - Peripheral Aerobic Blood Culture - Preliminary No growth in 3 days 05/21/18 12:40 Blood - Peripheral Anaerobic Blood Culture - Preliminary No growth in 3 days Lab - Hematology Results 05/24/18 05/25/18 06:17 05:17 WBC 5.2 5.9 RBC 3.76 L 3.77 L Hgb 8.5 L 9.0 L Hct 27.0 L 26.7 L MCV 71.7 L 70.9 L MCH 22.5 L 23.9 L MCHC 31.4 L 33.7 RDW 23.8 H 24.4 H Plt Count 355 393 MPV 7.2 7.6 Prelim Diff (Auto) Slide review pending Slide review pending Neut % (Auto) 56.2 52.8 Lymph % (Auto) 29.0 35.5 Gregory % (Auto) 11.2 H 7.7 Eos % (Auto) 2.5 2.7 Baso % (Auto) 1.1 1.3 Neut # (Auto) 2.9 3.1 Lymph # (Auto) 1.5 2.1 Gregory # (Auto) 0.6 0.5 Eos # (Auto) 0.1 0.2 Baso # (Auto) 0.1 0.1 WBC Differential Manual diff final Seg Neuts % (Manual) 60 Band Neuts % (Manual) 4 Lymphocytes % (Manual) 17 Monocytes % (Manual) 13 H Basophils % (Manual) 4 H Metamyelocytes % (Man) 2 H Abs Neuts (Manual) 3.4 Differential Comment . . Platelet Estimate Normal Platelet Morphology Normal Dimorphic RBCs Present H Stomatocytes 1+ H Lab - Chemistry Results 05/23/18 05/24/18 05/25/18 06:34 06:17 05:17 Sodium 138 139 Potassium 4.0 4.3 Chloride 99 102 Carbon Dioxide 34.8 H 33.4 H Anion Gap 4 L 4 L BUN 11 14 Creatinine 0.62 0.58 Estimated GFR Greater than 89 Greater than 89 Random Glucose 98 83 Hemoglobin A1c 5.9 Calcium 8.6 9.2 Imaging: ITS Impressions Venous Doppler Study 05/24/18 00:00 CONCLUSION: 1. The study is negative for lower extremity deep venous thrombosis. Physical Exam: GENERAL: awake and alert, not in respiratory distress. SKIN: Cool and dry. No ecchymoses and no evidence of embolic lesions. HEAD: Atraumatic. Normocephalic. No temporal wasting, or tenderness. EYES: Schubert conjunctiva. No petechia or hemorrhage. No scleral icterus. No injection or drainage. EARS, NOSE AND THROAT: Mucous membranes pink and moist. No oral lesions noted. No exudate. No oral thrush. Poor dentition NECK: Trachea midline. Supple and not tender, no meningeal signs CARDIOVASCULAR: Regular rate and rhythm. No murmurs, rubs or gallops heard RESPIRATORY: Clear to auscultation. Breath sounds equal bilaterally. No rales , wheezing or rhonchi ABDOMEN: Soft, non-tender, nondistended. Bowel sounds present and normoactive. No guarding. No rebound. No organomegaly. EXTREMITIES: No clubbing, cyanosis. Incision R hip dry with no redness, no drainage, tender to touch. No calf tenderness. RLE larger compared to LLE NEUROLOGICAL: Awake and alert. Cranial nerves grossly intact. Motor grossly within normal limits. PSYCHIATRIC: Normal affect, calm and cooperative. 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
[2018-05-25] MEDS: Methadone 10 MG Tablet PO SCH (10:24)
[2018-05-25] MEDS: Senna/Docusate Sodium 8.6/50 MG Tablet PO SCH ×2 (10:24→20:31)
[2018-05-25] MEDS: Gabapentin 300 MG Capsule PO SCH ×3 (10:25→18:10)
[2018-05-25] MEDS: Enoxaparin Inj 40 MG/0.4 ML Syringe SQ SCH (10:25)
[2018-05-25] MEDS: Ferrous Sulfate 325 MG Tablet PO SCH (10:25)
[2018-05-25 11:01] LABS: Eosinophils 1 % (0-4); Lymphocytes 29 % (9-44); Monocytes 3 % (0-8); Myelocytes 2 % (0-0); Ovalocytes 1+; Platelet Estimate Normal (Normal); Platelet Morphology Normal (Normal)
--- NOTE | 2018-05-25 12:03 | P.PNFP ---
Subjective Interval history: Doing well today. Vital stable overnight. No new complaints. Ultrasound was ordered yesterday due to complaints of right lower extremity leg swelling on exam yesterday. Report was negative for DVT. <Steffany Miller - 05/25/18 12:02> Results - Labs Result diagrams: 05/25/18 05:17 05/25/18 05:17 <Tip Gtz - 05/26/18 17:28> Abnormal lab results 05/25/18 05/25/18 Range/Units 05:17 05:17 RBC 3.77 L (4.00-5.30) mil/mm3 Hgb 9.0 L (11.6-15.3) gm/dL Hct 26.7 L (35.0-46.0) % MCV 70.9 L (80.0-100.0) fL MCH 23.9 L (27.0-34.0) pg RDW 24.4 H (11.6-17.2) % Basophils % (Manual) 3 H (0-2) % Myelocytes % (Man) 2 H (0-0) % Ovalocytes 1+ H (None) Carbon Dioxide 33.4 H (21.0-32.0) meq/L Anion Gap 4 L (5-15) meq/L Short CBC 05/25/18 Range/Units 05:17 WBC 5.9 (4.0-11.0) th/mm3 Hgb 9.0 L (11.6-15.3) gm/dL Hct 26.7 L (35.0-46.0) % Plt Count 393 (150-450) th/mm3 BMP 05/25/18 05:17 Sodium 139 Potassium 4.3 Chloride 102 Carbon Dioxide 33.4 H BUN 14 Creatinine 0.58 Calcium 9.2 <Steffany Miller - 05/25/18 12:02> - Imaging Impressions Venous Doppler Study 05/24/18 00:00 CONCLUSION: 1. The study is negative for lower extremity deep venous thrombosis. <Steffany Miller - 05/25/18 12:02> Physical Exam Vital signs: Vital Signs 05/25/18 20:00 05/25/18 21:02 05/25/18 22:16 Temperature 97.9 F Pulse Rate 106 H Respiratory Rate 17 18 18 Blood Pressure 125/58 L Pulse Oximetry 96 05/26/18 00:06 05/26/18 02:05 05/26/18 05:43 Temperature 97.8 F Pulse Rate 99 H Respiratory Rate 16 18 18 Blood Pressure 138/84 Pulse Oximetry 96 05/26/18 06:03 05/26/18 08:00 05/26/18 12:00 Temperature 97.2 F L 97.5 F L Pulse Rate 84 82 Respiratory Rate 18 16 17 Blood Pressure 91/54 L 115/69 Pulse Oximetry 100 99 Intake & Output 05/25/18 05/26/18 05/26/18 18:59 06:59 18:59 Intake Total 1150 / 1150 880 / 880 470 / 470 Balance 1150 / 1150 880 / 880 470 / 470 Weight 46 kg Intake: IV 50 / 50 100 / 100 50 / 50 Ancef 2 GM Premix Inj 2 gm In 50 / 50 100 / 100 50 / 50 50 ml @ 100 mls/hr IV.SIG Q8H ERNU Rx#:[id number] Oral 1100 / 1100 780 / 780 420 / 420 Other: # Voids 6 4 Date of Last Bowel Movement 05/24/18 05/25/18 # Bowel Movements 3 1 <Tip Gtz L - 05/26/18 17:28> Vital Signs 05/24/18 12:00 05/24/18 12:10 05/24/18 13:01 Temperature 97.5 F L Pulse Rate 113 H Respiratory Rate 17 16 16 Blood Pressure 116/67 Pulse Oximetry 98 05/24/18 16:00 05/24/18 17:30 05/24/18 20:00 Temperature 98 F 98.1 F Pulse Rate 84 104 H Respiratory Rate 16 16 18 Blood Pressure 97/55 L 108/63 Pulse Oximetry 98 96 05/24/18 20:41 05/25/18 00:00 05/25/18 01:09 Temperature 97.2 F L Pulse Rate 72 Respiratory Rate 16 18 18 Blood Pressure 105/55 L Pulse Oximetry 99 05/25/18 05:15 05/25/18 08:00 Temperature 98.0 F Pulse Rate 119 H Respiratory Rate 17 20 Blood Pressure 125/71 Pulse Oximetry 99 Intake & Output 05/24/18 05/25/18 05/25/18 18:59 06:59 18:59 Intake Total 1570 / 1570 520 / 520 Balance 1570 / 1570 520 / 520 Weight 46.5 kg Intake: IV 50 / 50 100 / 100 Ancef 2 GM Premix Inj 2 gm In 50 / 50 100 / 100 50 ml @ 100 mls/hr IV.SIG Q8H RENU Rx#:[id number] Oral 1520 / 1520 420 / 420 Other: # Voids 4 3 Date of Last Bowel Movement 05/24/18 05/24/18 05/24/18 # Bowel Movements 2 1 <Steffany Miller - 05/25/18 12:02> Narrative: Physical examination GENERAL: Patient is a cachectic female, awake and alert, not in respiratory distress. Looks older than stated age. SKIN: Cool and dry. Healed track recinos in UE, a lot of scars in BLE. Patient has a stage II sacral ulcer. The ulcers approximately 1.5 cm in diameter. No surrounding erythema or signs of infection. No drainage. EYES: Extraocular movements full and intact. No scleral icterus. No injection or drainage. ENT: Poor dentition. CARDIOVASCULAR: Normal rate and rhythm. RESPIRATORY: Clear to auscultation. Breath sounds equal bilaterally. No rales , wheezing or rhonchi ABDOMEN: Nondistended. EXTREMITIES: Improved edema of right lower extremity to the knee. No clubbing, cyanosis. Incision of hip covered with clean bandage without signs of debris, bleeding, or infection. No calf tenderness BL. NEUROLOGICAL: Awake and alert. No focal deficits. PSYCHIATRIC: Normal affect, calm and cooperative. <Gretchen Steffany Jaquez - 05/25/18 12:02> Assessment and Plan - Assessment (1) Bacterial arthritis of right hip Code(s): M00.851 - Arthritis due to other bacteria, right hip Status: Acute (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 Code(s): I33.0 - Acute and subacute infective endocarditis; B95.8 - Unspecified staphylococcus as the cause of diseases classified elsewhere Status: Acute (3) Stage II pressure ulcer of sacral region Code(s): L89.152 - Pressure ulcer of sacral region, stage 2 Status: Acute (4) Polysubstance abuse Code(s): F19.10 - Other psychoactive substance abuse, uncomplicated Status: Acute (5) Hepatitis C Code(s): B19.20 - Unspecified viral hepatitis C without hepatic coma Status: Acute (6) Anemia Code(s): D64.9 - Anemia, unspecified Status: Acute (7) Cachexia Code(s): R64 - Cachexia Status: Acute (8) Leg swelling Code(s): M79.89 - Other specified soft tissue disorders Status: Acute <Tip Gtz - 05/26/18 17:28> (1) Bacterial arthritis of right hip Code(s): M00.851 - Arthritis due to other bacteria, right hip Status: Acute Plan: S/p Right proximal femur resection (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 Incision site closure with eh. Tissue cx from 05/16 negative for growth On IV Ancef (05/14-present), ID consulted and appreciated: Recommendations She will need Rx for osteomyelitis - at least 6-8 weeks IV Abx Follow labs while on IV Abx: weekly CBC, creatinine Continue Ancef Follow temps Monitor progress Plan: Con't pain medication regimen: Methadone PO 30 mg daily, wean over long-term Ibuprofen for pain 1-3 [place] 5/325 for pain 4-6 Morphine for severe pain/7-10 Gabapentin 300 mg TID for neuropathic pain PT for early mobilization - F/u ordered w/Dr. Cueva in 2 weeks (possibly for staple removal), but patient may be here for longer due to antibiotic treatment. 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 -physical therapy recommended wheeled walker -Continue to monitor -Continue mobilization with physical therapy (4) Polysubstance abuse Code(s): F19.10 - Other psychoactive substance abuse, uncomplicated Status: Acute Plan: Hx of IVDU (heroin, dilaudid, and other narcotics) and smoker Con't methadone 30 mg daily. Plan to wean in long-term Nicotine patches Case management to help with outpatient placement, preferably [facility] (5) Hepatitis C Code(s): B19.20 - Unspecified viral hepatitis C without hepatic coma Status: Acute Plan: Will require outpatient f/u and treatment (6) Anemia Code(s): D64.9 - Anemia, unspecified Status: Acute Plan: Stable Hx of anemia requiring 2 units PRBCs on 05/16 at [facility] Microcytic, likely 2/2 to iron def On daily Ferrous sulfate (7) Cachexia Code(s): R64 - Cachexia Status: Acute Plan: -ordered double portions (8) Leg swelling Code(s): M79.89 - Other specified soft tissue disorders Status: Acute Plan: Ultrasound of the right lower extremity on 05/24/18 was negative for DVT Improving. <Steffany Miller - 05/25/18 12:02> - Assessment and Plan Discharge Planning: After full course of antibiotic treatment <Steffany Miller - 05/25/18 12:02> - Attending Attestation Attending note: Plan of care discussed with resident physician. I agree with documentation above. Patient with history of IV drug use status post Girdlestone procedure for osteomyelitis and also being treated for suspected endocarditis. Requires manager long term care IV antibiotics. Getting around with walker, but must depend on the left leg due the lack of functionality of her right hip. Withdrawals are well controlled with methadone. She is interested in rehabilitation, would be a good candidate for methadone or Suboxone medication assisted therapy as an outpatient. <Tip Gtz - 05/26/18 17:28>
--- NOTE | 2018-05-25 12:27 | P.PNADD ---
Addendum to Inpatient Note Reason for Addendum: Additional Documentation Additional information: OFF SERVICE NOTE: Patient is a 42-year-old female who is in known IV drug user with frequent hospitalizations for complications secondary to IV drug use presenting to [facility] for continued treatment of endocarditis and osteomyelitis. Patient was admitted 05/10 for left hip pain which, on imaging, was consistent with extensive osteomyelitis associated with pathologic fracture of the medial acetabular roof. Wound cultures were positive for Staph Aureus. She had a prior hospitalization 05/03/18 through 05/09/18 during which she was found to have bacteremia and endocarditis that was MSSA positive on blood cultures. Repeat cultures from 05/05-05/07 were negative for growth. Was placed on IV Ancef but left AMA. On her second hospitalization, Infectious disease was consulted for recommendations, and she was initially placed on Vanco and cefepime from 05/10- (3 full days). she was then transitioned to IV Ancef the day of transfer. Due to the extent of the osteomyelitis and hip fracture, Orthopedic surgery was consulted and advised patient be transferred to another facility for reconstructive surgery. She was transferred to [facility] on 05/14. At [facility], IV Ancef was continued. Patient underwent emergent I&D R hip and Girdlestone R hip on 05/[address] Cueva - the procedure was chosen to avoid a complication related to an implant related infection. The incision site was closed w/eh and follow-up in [address] Cueva was advised. Tissue culture from 05/16 showed no growth for two days. Advised a ANNA on the patient on return to [place] (this was deferred later because it would likely not [employer] aircraft). Received blood transfusion 05/16 of 2 units PRBCs. For pain control, she was placed on methadone 10 mg TID (was on 30 mg BID previously). Gabapentin 100 mg qHS, Morphine IV PRN, and PO [place] were added for pain control. Patient worked w/PT while inpatient. For DVT prophylaxis, advised Lovenox 40 mg daily for two weeks. On readmission 05/19, patient complained of right hip soreness but no other problems. Her medication regimen from [facility] was resumed, along with IV Ancef. Ibuprofen was later added, which the patient found very helpful for her pain. Right hip pain and swelling have significantly improved, as well as her mobility. Incision site and remained clean and dry, and methadone is helping to prevent withdrawals and cravings. It was explained to her that she will likely not ever be able to walk on her right leg normally again and that she will need to learn how to safely transfer and mobilize w/a walker through work w/PT. ID is again following patient and have recommended patient continue IV abx for a total of 6-8 weeks. Due to right leg swelling noted yesterday, an US of the RLE was ordered to evaluate for DVT. It was negative.
[2018-05-25] MEDS ORDERED: Acetaminophen 325 MG Tablet PO ONE (20:05)
[2018-05-26] MEDS: Morphine Inj 4 MG/ML Vial IV.PUSH PRN ×6 (02:03→23:14)
[2018-05-26] MEDS: ceFAZolin 2 GM Premix Inj 2 GM/50 ML PIGGYBACK IV.SIG SCH ×3 (05:09→20:47)
[2018-05-26] MEDS: Enoxaparin Inj 40 MG/0.4 ML Syringe SQ SCH (09:05)
[2018-05-26] MEDS: Gabapentin 300 MG Capsule PO SCH ×3 (09:06→17:13)
[2018-05-26] MEDS: Ferrous Sulfate 325 MG Tablet PO SCH (09:06)
[2018-05-26] MEDS: Methadone 10 MG Tablet PO SCH (09:06)
[2018-05-26] MEDS: Senna/Docusate Sodium 8.6/50 MG Tablet PO SCH ×2 (09:06→20:47)
--- NOTE | 2018-05-26 09:33 | P.PNFP ---
Subjective Interval history: Patient seen and examined today. No acute events overnight. Patient reports some minimal soreness in her right hip and occasional swelling in her legs. Improved upon lying in bed. No pain in calves. Denies nausea, vomiting, fever, chills, abdominal pain, chest pain, shortness of breath, lightheadedness, dizziness. Able to ambulate with walker. No other complaints today. <Tip Mayer - 05/26/18 09:32> Results - Labs Result diagrams: 05/25/18 05:17 05/25/18 05:17 <Tip Gtz Genaro - 05/26/18 17:34> Abnormal lab results 05/25/18 Range/Units 05:17 Basophils % (Manual) 3 H (0-2) % Myelocytes % (Man) 2 H (0-0) % Ovalocytes 1+ H (None) <Tip Mayer - 05/26/18 09:32> Physical Exam Vital signs: Vital Signs 05/25/18 20:00 05/25/18 21:02 05/25/18 22:16 Temperature 97.9 F Pulse Rate 106 H Respiratory Rate 17 18 18 Blood Pressure 125/58 L Pulse Oximetry 96 05/26/18 00:06 05/26/18 02:05 05/26/18 05:43 Temperature 97.8 F Pulse Rate 99 H Respiratory Rate 16 18 18 Blood Pressure 138/84 Pulse Oximetry 96 05/26/18 06:03 05/26/18 08:00 05/26/18 12:00 Temperature 97.2 F L 97.5 F L Pulse Rate 84 82 Respiratory Rate 18 16 17 Blood Pressure 91/54 L 115/69 Pulse Oximetry 100 99 05/26/18 16:00 Temperature 98.3 F Pulse Rate 90 Respiratory Rate 18 Blood Pressure 123/72 Pulse Oximetry 97 Intake & Output 05/25/18 05/26/18 05/26/18 18:59 06:59 18:59 Intake Total 1150 / 1150 880 / 880 470 / 470 Balance 1150 / 1150 880 / 880 470 / 470 Weight 46 kg Intake: IV 50 / 50 100 / 100 50 / 50 Ancef 2 GM Premix Inj 2 gm In 50 / 50 100 / 100 50 / 50 50 ml @ 100 mls/hr IV.SIG Q8H RENU Rx#:[id number] Oral 1100 / 1100 780 / 780 420 / 420 Other: # Voids 6 4 Date of Last Bowel Movement 05/24/18 05/25/18 # Bowel Movements 3 1 <Tip Gtz - 05/26/18 17:34> Vital Signs 05/25/18 12:00 05/25/18 15:40 05/25/18 16:00 Temperature 97.1 F L 97.9 F Pulse Rate 88 89 98 H Respiratory Rate 17 16 18 Blood Pressure 100/59 L 118/57 L 108/59 L Pulse Oximetry 97 99 05/25/18 20:00 05/25/18 21:02 05/25/18 22:16 Temperature 97.9 F Pulse Rate 106 H Respiratory Rate 17 18 18 Blood Pressure 125/58 L Pulse Oximetry 96 05/26/18 00:06 05/26/18 02:05 05/26/18 05:43 Temperature 97.8 F Pulse Rate 99 H Respiratory Rate 16 18 18 Blood Pressure 138/84 Pulse Oximetry 96 05/26/18 06:03 05/26/18 08:00 Temperature 97.2 F L Pulse Rate 84 Respiratory Rate 18 16 Blood Pressure 91/54 L Pulse Oximetry 100 Intake & Output 05/25/18 05/26/18 05/26/18 18:59 06:59 18:59 Intake Total 1150 / 1150 880 / 880 Balance 1150 / 1150 880 / 880 Weight 46 kg Intake: IV 50 / 50 100 / 100 Ancef 2 GM Premix Inj 2 gm In 50 / 50 100 / 100 50 ml @ 100 mls/hr IV.SIG Q8H RENU Rx#:[id number] Oral 1100 / 1100 780 / 780 Other: # Voids 6 4 Date of Last Bowel Movement 05/24/18 05/25/18 # Bowel Movements 3 1 <Tip Mayer - 05/26/18 09:32> Narrative: GENERAL: Laying in bed, cachectic, older than stated age SKIN: Warm and dry. Right hip bandage clean/dry/intact HEAD: Atraumatic. Normocephalic. EYES: Pupils equal and round. No scleral icterus. No injection or drainage. ENT: No nasal bleeding or discharge. Mucous membranes pink and moist. Poor dentition NECK: Trachea midline. No JVD. CARDIOVASCULAR: Regular rate and rhythm. RESPIRATORY: No accessory muscle use. Clear to auscultation. Breath sounds equal bilaterally. MUSCULOSKELETAL: Extremities without clubbing, cyanosis, or edema. No obvious deformities. NEUROLOGICAL: Awake and alert. No obvious cranial nerve deficits. Motor grossly within normal limits. PSYCHIATRIC: Appropriate mood and affect; insight and judgment normal. <Tip Mayer - 05/26/18 09:32> Assessment and Plan - Assessment (1) Bacterial arthritis of right hip Code(s): M00.851 - Arthritis due to other bacteria, right hip Status: Acute (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 Code(s): I33.0 - Acute and subacute infective endocarditis; B95.8 - Unspecified staphylococcus as the cause of diseases classified elsewhere Status: Acute (3) Stage II pressure ulcer of sacral region Code(s): L89.152 - Pressure ulcer of sacral region, stage 2 Status: Acute (4) Polysubstance abuse Code(s): F19.10 - Other psychoactive substance abuse, uncomplicated Status: Acute (5) Hepatitis C Code(s): B19.20 - Unspecified viral hepatitis C without hepatic coma Status: Acute (6) Anemia Code(s): D64.9 - Anemia, unspecified Status: Acute (7) Cachexia Code(s): R64 - Cachexia Status: Acute (8) Leg swelling Code(s): M79.89 - Other specified soft tissue disorders Status: Acute <Tip Gtz - 05/26/18 17:34> (1) Bacterial arthritis of right hip Code(s): M00.851 - Arthritis due to other bacteria, right hip Status: Acute Plan: S/p Right proximal femur resection (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 Incision site closure with eh. Tissue cx from 05/16 negative for growth On IV Ancef (05/14-present), ID consulted and appreciated: Recommendations She will need Rx for osteomyelitis - at least 6-8 weeks IV Abx Follow labs while on IV Abx: weekly CBC, creatinine Continue Ancef Follow temps Monitor progress Plan: Con't pain medication regimen: Methadone PO 30 mg daily, wean over long-term Ibuprofen for pain 1-3 [place] 5/325 for pain 4-6 Morphine for severe pain/7-10 Gabapentin 300 mg TID for neuropathic pain PT for early mobilization - F/u ordered w/Dr. Cueva was supposed to happen around 2 weeks, likely around the week of the , (possibly for staple removal), but patient may be here for longer due to antibiotic treatment. 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 -physical therapy recommended wheeled walker -Continue to monitor -Continue mobilization with physical therapy (4) Polysubstance abuse Code(s): F19.10 - Other psychoactive substance abuse, uncomplicated Status: Acute Plan: Hx of IVDU (heroin, dilaudid, and other narcotics) and smoker Con't methadone 30 mg daily. Plan to wean in long-term Nicotine patches Case management to help with outpatient placement, preferably [facility] for drug rehab (5) Hepatitis C Code(s): B19.20 - Unspecified viral hepatitis C without hepatic coma Status: Acute Plan: Will require outpatient f/u and treatment (6) Anemia Code(s): D64.9 - Anemia, unspecified Status: Acute Plan: Stable Hx of anemia requiring 2 units PRBCs on 05/16 at [facility] Microcytic, likely 2/2 to iron def On daily Ferrous sulfate (7) Cachexia Code(s): R64 - Cachexia Status: Acute Plan: -ordered double portions (8) Leg swelling Code(s): M79.89 - Other specified soft tissue disorders Status: Acute Plan: Ultrasound of the right lower extremity on 05/24/18 was negative for DVT Improving. <Tip Mayer - 05/26/18 09:21> - Attending Attestation The exam, history, and the medical decision-making described in the above note were completed with the assistance of the resident physician. I reviewed and agree with the findings presented. I attest that I had a [id number] encounter with the patient on the same day, and personally performed and documented my assessment and findings in the medical record. I discussed management plan with residents and agree with documentation above. I saw the patient independently. By my evaluation, she is stable. She is ambulating well with walker despite the odds against her with the right Girdlestone procedure. She is heavily dependent on her left lower extremity to ambulate. Has musculoskeletal pain in the right lower back and hip area on the right likely due to ambulating, recommended pacing herself and not overdo physical activity, but that we do want her to be active. Continuing rn long term care antibiotics, and will continue to discuss outpatient management of opioid addiction. <Tip Gtz - 05/26/18 17:34>
[2018-05-27] MEDS: Morphine Inj 4 MG/ML Vial IV.PUSH PRN ×5 (03:56→21:44)
[2018-05-27] MEDS: ceFAZolin 2 GM Premix Inj 2 GM/50 ML PIGGYBACK IV.SIG SCH ×3 (04:00→21:44)
[2018-05-27] MEDS: Ferrous Sulfate 325 MG Tablet PO SCH (08:01)
[2018-05-27] MEDS: Gabapentin 300 MG Capsule PO SCH ×3 (08:01→18:00)
[2018-05-27] MEDS: Methadone 10 MG Tablet PO SCH (08:01)
[2018-05-27] MEDS: Senna/Docusate Sodium 8.6/50 MG Tablet PO SCH ×2 (08:01→21:44)
[2018-05-27] MEDS: Enoxaparin Inj 40 MG/0.4 ML Syringe SQ SCH (08:01)
--- NOTE | 2018-05-27 09:22 | P.PNFP ---
Subjective Interval history: Patient seen and examined today. No acute events overnight. Patient reports some continued minimal soreness in her right hip and occasional swelling in her legs. Improved upon lying in bed. No pain in calves. Denies nausea, vomiting, fever, chills, abdominal pain, chest pain, shortness of breath, lightheadedness, dizziness. Able to ambulate with walker. No other complaints today. <Henry JaquezJuan - 05/27/18 14:39> Results - Labs Result diagrams: 05/25/18 05:17 05/25/18 05:17 <UlissesTip - 05/27/18 17:36> Physical Exam Vital signs: Vital Signs 05/26/18 20:00 05/26/18 21:34 05/26/18 21:35 Temperature 97.1 F L Pulse Rate 97 H Respiratory Rate 18 20 20 Blood Pressure 139/70 Pulse Oximetry 96 05/27/18 00:00 05/27/18 00:16 05/27/18 06:19 Temperature 98.2 F Pulse Rate 91 H Respiratory Rate 18 20 20 Blood Pressure 133/73 Pulse Oximetry 98 05/27/18 08:00 05/27/18 12:00 Temperature 98.7 F 98.2 F Pulse Rate 85 88 Respiratory Rate 17 18 Blood Pressure 129/76 127/92 H Pulse Oximetry 100 93 L Intake & Output 05/26/18 05/27/18 05/27/18 18:59 06:59 18:59 Intake Total 470 / 470 100 / 100 430 / 430 Balance 470 / 470 100 / 100 430 / 430 Weight 50 kg Intake: IV 50 / 50 100 / 100 50 / 50 Ancef 2 GM Premix Inj 2 gm In 50 / 50 100 / 100 50 / 50 50 ml @ 100 mls/hr IV.SIG Q8H RENU Rx#:[id number] Oral 420 / 420 380 / 380 Other: # Voids 3 <Tip Gtz - 05/27/18 17:36> Vital Signs 05/26/18 12:00 05/26/18 16:00 05/26/18 20:00 Temperature 97.5 F L 98.3 F 97.1 F L Pulse Rate 82 90 97 H Respiratory Rate 17 18 18 Blood Pressure 115/69 123/72 139/70 Pulse Oximetry 99 97 96 05/26/18 21:34 05/26/18 21:35 05/27/18 00:00 Temperature 98.2 F Pulse Rate 91 H Respiratory Rate 20 20 18 Blood Pressure 133/73 Pulse Oximetry 98 05/27/18 00:16 05/27/18 06:19 Temperature Pulse Rate Respiratory Rate 20 20 Blood Pressure Pulse Oximetry Intake & Output 05/26/18 05/27/18 05/27/18 18:59 06:59 18:59 Intake Total 470 / 470 100 / 100 Balance 470 / 470 100 / 100 Weight 50 kg Intake: IV 50 / 50 100 / 100 Ancef 2 GM Premix Inj 2 gm In 50 / 50 100 / 100 50 ml @ 100 mls/hr IV.SIG Q8H RENU Rx#:[id number] Oral 420 / 420 Other: # Voids 3 <Tip Mayer - 05/27/18 09:21> Narrative: GENERAL: Laying in bed, cachectic, older than stated age SKIN: Warm and dry. Right hip bandage clean/dry/intact HEAD: Atraumatic. Normocephalic. EYES: Pupils equal and round. No scleral icterus. No injection or drainage. ENT: No nasal bleeding or discharge. Mucous membranes pink and moist. Poor dentition NECK: Trachea midline. No JVD. CARDIOVASCULAR: Regular rate and rhythm. RESPIRATORY: No accessory muscle use. Clear to auscultation. Breath sounds equal bilaterally. MUSCULOSKELETAL: Extremities without clubbing, cyanosis, or edema. No obvious deformities. NEUROLOGICAL: Awake and alert. No obvious cranial nerve deficits. Motor grossly within normal limits. PSYCHIATRIC: Appropriate mood and affect; insight and judgment normal. <Tip Mayer - 05/27/18 14:39> Assessment and Plan - Assessment (1) Bacterial arthritis of right hip Code(s): M00.851 - Arthritis due to other bacteria, right hip Status: Acute (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 Code(s): I33.0 - Acute and subacute infective endocarditis; B95.8 - Unspecified staphylococcus as the cause of diseases classified elsewhere Status: Acute (3) Stage II pressure ulcer of sacral region Code(s): L89.152 - Pressure ulcer of sacral region, stage 2 Status: Acute (4) Polysubstance abuse Code(s): F19.10 - Other psychoactive substance abuse, uncomplicated Status: Acute (5) Hepatitis C Code(s): B19.20 - Unspecified viral hepatitis C without hepatic coma Status: Acute (6) Anemia Code(s): D64.9 - Anemia, unspecified Status: Acute (7) Cachexia Code(s): R64 - Cachexia Status: Acute (8) Leg swelling Code(s): M79.89 - Other specified soft tissue disorders Status: Acute <Tip Gtz - 05/27/18 17:36> (1) Bacterial arthritis of right hip Code(s): M00.851 - Arthritis due to other bacteria, right hip Status: Acute Plan: S/p Right proximal femur resection (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 Incision site closure with eh. Tissue cx from 05/16 negative for growth On IV Ancef (05/14-present), ID consulted and appreciated: Recommendations She will need Rx for osteomyelitis - at least 6-8 weeks IV Abx Follow labs while on IV Abx: weekly CBC, creatinine Continue Ancef Follow temps Monitor progress Plan: Con't pain medication regimen: Methadone PO 30 mg daily, wean over long-term Ibuprofen for pain 1-3 [place] 5/325 for pain 4-6 Morphine for severe pain/7-10 Gabapentin 300 mg TID for neuropathic pain PT for early mobilization - F/u ordered w/Dr. Cueva was supposed to happen around 2 weeks, likely around the week of the , (possibly for staple removal), but patient may be here for longer due to antibiotic treatment. 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 -physical therapy recommended wheeled walker -Continue to monitor -Continue mobilization with physical therapy (4) Polysubstance abuse Code(s): F19.10 - Other psychoactive substance abuse, uncomplicated Status: Acute Plan: Hx of IVDU (heroin, dilaudid, and other narcotics) and smoker Con't methadone 30 mg daily. Plan to wean in long-term Nicotine patches Case management to help with outpatient placement, preferably [facility] for drug rehab (5) Hepatitis C Code(s): B19.20 - Unspecified viral hepatitis C without hepatic coma Status: Acute Plan: Will require outpatient f/u and treatment (6) Anemia Code(s): D64.9 - Anemia, unspecified Status: Acute Plan: Stable Hx of anemia requiring 2 units PRBCs on 05/16 at [facility] Microcytic, likely 2/2 to iron def On daily Ferrous sulfate (7) Cachexia Code(s): R64 - Cachexia Status: Acute Plan: -ordered double portions (8) Leg swelling Code(s): M79.89 - Other specified soft tissue disorders Status: Acute Plan: Ultrasound of the right lower extremity on 05/24/18 was negative for DVT Stable <Tip Mayer - 05/27/18 14:35> - Attending Attestation The exam, history, and the medical decision-making described in the above note were completed with the assistance of the resident physician. I reviewed and agree with the findings presented. I attest that I had a [id number] encounter with the patient on the same day, and personally performed and documented my assessment and findings in the medical record. <Tip Gtz - 05/27/18 17:36>
[2018-05-27] MEDS: Ketorolac 10 MG Tablet PO SCH ×2 (18:00→23:45)
[2018-05-27] MEDS: traZODone 50 MG Tablet PO PRN (21:49)
[2018-05-28] MEDS: Morphine Inj 4 MG/ML Vial IV.PUSH PRN ×5 (01:45→22:00)
[2018-05-28] MEDS: Ketorolac 10 MG Tablet PO SCH ×3 (05:37→17:41)
[2018-05-28] MEDS: ceFAZolin 2 GM Premix Inj 2 GM/50 ML PIGGYBACK IV.SIG SCH ×3 (05:38→20:58)
[2018-05-28] MEDS: Methadone 10 MG Tablet PO SCH (08:04)
[2018-05-28] MEDS: Ferrous Sulfate 325 MG Tablet PO SCH (08:04)
[2018-05-28] MEDS: Enoxaparin Inj 40 MG/0.4 ML Syringe SQ SCH (08:05)
[2018-05-28] MEDS: Senna/Docusate Sodium 8.6/50 MG Tablet PO SCH ×2 (08:06→20:59)
[2018-05-28] MEDS: Gabapentin 300 MG Capsule PO SCH ×3 (08:06→17:41)
--- NOTE | 2018-05-28 10:06 | P.PNFP ---
Subjective Interval history: Patient seen and examined this morning. No acute events overnight. Reports no new concerns/complaints today. States still having some swelling in the right leg, not any worse however. Denies any new fever/chills, nausea/vomiting, headache, chest pain, SOB, abdominal pain, constipation/diarrhea. She is ambulating as tolerated. <Gemmarcus HessDelonte Evelia - 05/28/18 10:06> Results - Labs Result diagrams: 05/25/18 05:17 05/25/18 05:17 <Tip Gtz - 05/29/18 15:21> Physical Exam Vital signs: Vital Signs 05/28/18 16:00 05/28/18 18:00 05/28/18 18:02 Temperature 98.0 F Pulse Rate 85 Respiratory Rate 19 18 16 Blood Pressure 155/99 H Pulse Oximetry 99 05/28/18 20:00 05/29/18 00:00 05/29/18 01:40 Temperature 98.1 F 98.3 F Pulse Rate 92 H 96 H Respiratory Rate 18 18 18 Blood Pressure 147/84 H 153/97 H Pulse Oximetry 99 97 05/29/18 04:47 05/29/18 05:24 05/29/18 06:35 Temperature Pulse Rate Respiratory Rate 20 20 20 Blood Pressure Pulse Oximetry 05/29/18 08:00 05/29/18 09:11 05/29/18 12:00 Temperature 98.2 F 97.4 F L Pulse Rate 69 97 H Respiratory Rate 18 18 17 Blood Pressure 161/100 H 133/76 Pulse Oximetry 99 99 Intake & Output 05/28/18 05/29/18 05/29/18 18:59 06:59 18:59 Intake Total 825 / 825 400 / 400 50 / 50 Balance 825 / 825 400 / 400 50 / 50 Weight 50.3 kg Intake: IV 100 / 100 100 / 100 50 / 50 Ancef 2 GM Premix Inj 2 gm In 100 / 100 100 / 100 50 / 50 50 ml @ 100 mls/hr IV.SIG Q8H RENU Rx#:[id number] Oral 725 / 725 300 / 300 Other: # Voids 5 3 Date of Last Bowel Movement 05/27/18 05/28/18 # Bowel Movements 1 <Tip Gtz - 05/29/18 15:21> Vital Signs 05/27/18 12:00 05/27/18 20:00 05/27/18 23:47 Temperature 98.2 F 97.9 F Pulse Rate 88 100 H Respiratory Rate 18 22 6 L Blood Pressure 127/92 H 133/66 Pulse Oximetry 93 L 98 05/27/18 23:48 05/28/18 00:00 05/28/18 01:29 Temperature 98.3 F Pulse Rate 92 H Respiratory Rate 20 26 H 20 Blood Pressure 134/78 Pulse Oximetry 98 05/28/18 08:00 05/28/18 09:10 Temperature 98.2 F Pulse Rate 85 Respiratory Rate 17 16 Blood Pressure 160/106 H Pulse Oximetry 99 Intake & Output 05/27/18 05/28/18 05/28/18 18:59 06:59 18:59 Intake Total 430 / 430 50 / 50 50 / 50 Balance 430 / 430 50 / 50 50 / 50 Intake: IV 50 / 50 50 / 50 50 / 50 Ancef 2 GM Premix Inj 2 gm In 50 / 50 50 / 50 50 / 50 50 ml @ 100 mls/hr IV.SIG Q8H RENU Rx#:[id number] Oral 380 / 380 Other: Date of Last Bowel Movement 05/27/18 05/27/18 <Stefani HessDelonte Altamirano - 05/28/18 10:06> Narrative: GENERAL: Laying in bed, cachectic, older than stated age SKIN: Warm and dry. Right hip bandage clean/dry/intact EYES: Pupils equal and round. No scleral icterus. No injection or drainage. CARDIOVASCULAR: Regular rate and rhythm. RESPIRATORY: No accessory muscle use. Clear to auscultation. Breath sounds equal bilaterally. MUSCULOSKELETAL: Extremities without clubbing, cyanosis, or edema. NEUROLOGICAL: Awake and alert. No obvious cranial nerve deficits. Motor grossly within normal limits. PSYCHIATRIC: Appropriate mood and affect; insight and judgment normal. <Stefani HessDelonte Evelia - 05/28/18 10:06> Assessment and Plan - Assessment (1) Bacterial arthritis of right hip Code(s): M00.851 - Arthritis due to other bacteria, right hip Status: Acute (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 Code(s): I33.0 - Acute and subacute infective endocarditis; B95.8 - Unspecified staphylococcus as the cause of diseases classified elsewhere Status: Acute (3) Stage II pressure ulcer of sacral region Code(s): L89.152 - Pressure ulcer of sacral region, stage 2 Status: Acute (4) Polysubstance abuse Code(s): F19.10 - Other psychoactive substance abuse, uncomplicated Status: Acute (5) Hepatitis C Code(s): B19.20 - Unspecified viral hepatitis C without hepatic coma Status: Acute (6) Anemia Code(s): D64.9 - Anemia, unspecified Status: Acute (7) Cachexia Code(s): R64 - Cachexia Status: Acute (8) Leg swelling Code(s): M79.89 - Other specified soft tissue disorders Status: Acute <Tip Gtz - 05/29/18 15:21> (1) Bacterial arthritis of right hip Code(s): M00.851 - Arthritis due to other bacteria, right hip Status: Acute Plan: S/p Right proximal femur resection (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 Incision site closure with eh. Tissue cx from 05/16 negative for growth On IV Ancef (05/14 - ), ID consulted and appreciated: Recommendations She will need Rx for osteomyelitis - at least 6-8 weeks IV Abx Follow labs while on IV Abx: weekly CBC, creatinine Continue Ancef Follow temps Monitor progress Plan: Con't pain medication regimen: Methadone PO 30 mg daily, wean over long-term Ibuprofen for pain 1-3 [place] 5/325 for pain 4-6 Morphine for severe pain/7-10 Gabapentin 300 mg TID for neuropathic pain PT for early mobilization - F/u ordered w/Dr. Cueva was supposed to happen around 2 weeks, likely around the week of the , (possibly for staple removal), but patient may be here for longer due to antibiotic treatment. 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 -physical therapy recommended wheeled walker -Continue to monitor -Continue mobilization with physical therapy (4) Polysubstance abuse Code(s): F19.10 - Other psychoactive substance abuse, uncomplicated Status: Acute Plan: Hx of IVDU (heroin, dilaudid, and other narcotics) and smoker Con't methadone 30 mg daily. Plan to wean in long-term Nicotine patches Case management to help with outpatient placement, preferably [facility] for drug rehab (5) Hepatitis C Code(s): B19.20 - Unspecified viral hepatitis C without hepatic coma Status: Acute Plan: Will require outpatient f/u and treatment (6) Anemia Code(s): D64.9 - Anemia, unspecified Status: Acute Plan: Stable Hx of anemia requiring 2 units PRBCs on 05/16 at [facility] Microcytic, likely 2/2 to iron def Continue daily Ferrous sulfate (7) Cachexia Code(s): R64 - Cachexia Status: Acute Plan: -ordered double portions (8) Leg swelling Code(s): M79.89 - Other specified soft tissue disorders Status: Acute Plan: Ultrasound of the right lower extremity on 05/24/18 was negative for DVT Stable on exam today. <Delonte Griggs - 05/28/18 11:03> - Assessment and Plan 42 y/o female admitted for osteomyelitis and endocarditis. On long-term IV antibiotics per ID recs. <Delonte Griggs - 05/28/18 10:06> - Attending Attestation Patient seen and examined with resident team this morning. Agree with documentation above. No significant change to management plan today. <Tip Gtz - 05/29/18 15:21>
[2018-05-28] MEDS: traZODone 50 MG Tablet PO PRN (22:03)
[2018-05-29] MEDS: Ketorolac 10 MG Tablet PO SCH ×4 (00:35→17:08)
[2018-05-29] MEDS: Morphine Inj 4 MG/ML Vial IV.PUSH PRN ×5 (04:43→21:43)
[2018-05-29] MEDS: ceFAZolin 2 GM Premix Inj 2 GM/50 ML PIGGYBACK IV.SIG SCH ×3 (04:43→21:43)
[2018-05-29] MEDS: Ferrous Sulfate 325 MG Tablet PO SCH (08:41)
[2018-05-29] MEDS: Senna/Docusate Sodium 8.6/50 MG Tablet PO SCH ×2 (08:41→21:43)
[2018-05-29] MEDS: Enoxaparin Inj 40 MG/0.4 ML Syringe SQ SCH (08:41)
[2018-05-29] MEDS: Methadone 10 MG Tablet PO SCH (08:41)
[2018-05-29] MEDS: Gabapentin 300 MG Capsule PO SCH ×3 (08:41→17:09)
--- NOTE | 2018-05-29 11:18 | P.PNFP ---
Subjective Interval history: Patient seen and examined today. No acute events overnight. Patient reports some continued minimal soreness in her right hip and occasional swelling in her legs. Improved upon lying in bed. No pain in calves. Denies nausea, vomiting, fever, chills, abdominal pain, chest pain, shortness of breath , lightheadedness, dizziness. Able to ambulate with walker. No other complaints today. Noted by nursing that the patient may have attempted to obtain illicit drugs last night. Discussed with patient the risks associated with continued drug use and greatly emphasized the need to maintain abstinence. Reemphasized that multiple of her recent problems are results of her IV drug use and encouraged her to fully abstain. Noted that we may need to restrict hallway or visitor access if there are continued concerns for her well-being. <Tip Mayer A - 05/29/18 11:18> Results - Labs Result diagrams: 05/25/18 05:17 05/25/18 05:17 <Tip Gtz - 05/29/18 16:52> Physical Exam Vital signs: Vital Signs 05/28/18 18:00 05/28/18 18:02 05/28/18 20:00 Temperature 98.1 F Pulse Rate 92 H Respiratory Rate 18 16 18 Blood Pressure 147/84 H Pulse Oximetry 99 05/29/18 00:00 05/29/18 01:40 05/29/18 04:47 Temperature 98.3 F Pulse Rate 96 H Respiratory Rate 18 18 20 Blood Pressure 153/97 H Pulse Oximetry 97 05/29/18 05:24 05/29/18 06:35 05/29/18 08:00 Temperature 98.2 F Pulse Rate 69 Respiratory Rate 20 20 18 Blood Pressure 161/100 H Pulse Oximetry 99 05/29/18 09:11 05/29/18 12:00 Temperature 97.4 F L Pulse Rate 97 H Respiratory Rate 18 17 Blood Pressure 133/76 Pulse Oximetry 99 Intake & Output 05/28/18 05/29/18 05/29/18 18:59 06:59 18:59 Intake Total 825 / 825 400 / 400 50 / 50 Balance 825 / 825 400 / 400 50 / 50 Weight 50.3 kg Intake: IV 100 / 100 100 / 100 50 / 50 Ancef 2 GM Premix Inj 2 gm In 100 / 100 100 / 100 50 / 50 50 ml @ 100 mls/hr IV.SIG Q8H RENU Rx#:[id number] Oral 725 / 725 300 / 300 Other: # Voids 5 3 Date of Last Bowel Movement 05/27/18 05/28/18 # Bowel Movements 1 <Tip Gtz L - 05/29/18 16:52> Vital Signs 05/28/18 12:00 05/28/18 14:15 05/28/18 16:00 Temperature 98.1 F 98.0 F Pulse Rate 96 H 85 Respiratory Rate 18 16 19 Blood Pressure 141/84 H 155/99 H Pulse Oximetry 99 99 05/28/18 18:00 05/28/18 18:02 05/28/18 20:00 Temperature 98.1 F Pulse Rate 92 H Respiratory Rate 18 16 18 Blood Pressure 147/84 H Pulse Oximetry 99 05/29/18 00:00 05/29/18 01:40 05/29/18 04:47 Temperature 98.3 F Pulse Rate 96 H Respiratory Rate 18 18 20 Blood Pressure 153/97 H Pulse Oximetry 97 05/29/18 05:24 05/29/18 06:35 05/29/18 08:00 Temperature 98.2 F Pulse Rate 69 Respiratory Rate 20 20 18 Blood Pressure 161/100 H Pulse Oximetry 99 Intake & Output 05/28/18 05/29/18 05/29/18 18:59 06:59 18:59 Intake Total 825 / 825 400 / 400 Balance 825 / 825 400 / 400 Weight 50.3 kg Intake: IV 100 / 100 100 / 100 Ancef 2 GM Premix Inj 2 gm In 100 / 100 100 / 100 50 ml @ 100 mls/hr IV.SIG Q8H RENU Rx#:[id number] Oral 725 / 725 300 / 300 Other: # Voids 5 3 Date of Last Bowel Movement 05/27/18 # Bowel Movements 1 <Tip Mayer - 05/29/18 11:18> Narrative: GENERAL: Laying in bed, cachectic, older than stated age SKIN: Warm and dry. Right hip bandage clean/dry/intact EYES: Pupils equal and round. No scleral icterus. No injection or drainage. CARDIOVASCULAR: Regular rate and rhythm. RESPIRATORY: No accessory muscle use. Clear to auscultation. Breath sounds equal bilaterally. MUSCULOSKELETAL: Extremities without clubbing, cyanosis, or edema. NEUROLOGICAL: Awake and alert. No obvious cranial nerve deficits. Motor grossly within normal limits. PSYCHIATRIC: Appropriate mood and affect; insight and judgment normal. <Tpi Mayer A - 05/29/18 11:18> Assessment and Plan - Assessment (1) Bacterial arthritis of right hip Code(s): M00.851 - Arthritis due to other bacteria, right hip Status: Acute (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 Code(s): I33.0 - Acute and subacute infective endocarditis; B95.8 - Unspecified staphylococcus as the cause of diseases classified elsewhere Status: Acute (3) Stage II pressure ulcer of sacral region Code(s): L89.152 - Pressure ulcer of sacral region, stage 2 Status: Acute (4) Polysubstance abuse Code(s): F19.10 - Other psychoactive substance abuse, uncomplicated Status: Acute (5) Hepatitis C Code(s): B19.20 - Unspecified viral hepatitis C without hepatic coma Status: Acute (6) Anemia Code(s): D64.9 - Anemia, unspecified Status: Acute (7) Cachexia Code(s): R64 - Cachexia Status: Acute (8) Leg swelling Code(s): M79.89 - Other specified soft tissue disorders Status: Acute <Tip Gtz - 05/29/18 16:52> (1) Bacterial arthritis of right hip Code(s): M00.851 - Arthritis due to other bacteria, right hip Status: Acute Plan: S/p Right proximal femur resection (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 Incision site closure with eh. Tissue cx from 05/16 negative for growth On IV Ancef (05/14 - ), ID consulted and appreciated: Recommendations She will need Rx for osteomyelitis - at least 6-8 weeks IV Abx Follow labs while on IV Abx: weekly CBC, creatinine Continue Ancef Follow temps Monitor progress Plan: Con't pain medication regimen: Methadone PO 30 mg daily, wean over long-term Ibuprofen for pain 1-3 [place] 5/325 for pain 4-6 Morphine for severe pain/7-10 Gabapentin 300 mg TID for neuropathic pain PT for early mobilization - F/u ordered w/Dr. Cueva was supposed to happen around 2 weeks, likely around the week of the , (possibly for staple removal), but patient may be here for longer due to antibiotic treatment. 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 -physical therapy recommended wheeled walker -Continue to monitor -Continue mobilization with physical therapy (4) Polysubstance abuse Code(s): F19.10 - Other psychoactive substance abuse, uncomplicated Status: Acute Plan: Hx of IVDU (heroin, dilaudid, and other narcotics) and smoker Con't methadone 30 mg daily. Plan to wean in long-term Nicotine patches Case management to help with outpatient placement, preferably [facility] for drug rehab (5) Hepatitis C Code(s): B19.20 - Unspecified viral hepatitis C without hepatic coma Status: Acute Plan: Will require outpatient f/u and treatment (6) Anemia Code(s): D64.9 - Anemia, unspecified Status: Acute Plan: Stable Hx of anemia requiring 2 units PRBCs on 05/16 at [facility] Microcytic, likely 2/2 to iron def Continue daily Ferrous sulfate (7) Cachexia Code(s): R64 - Cachexia Status: Acute Plan: -ordered double portions (8) Leg swelling Code(s): M79.89 - Other specified soft tissue disorders Status: Acute Plan: Ultrasound of the right lower extremity on 05/24/18 was negative for DVT -Will attempt [employer] stocking <Tip Mayer - 05/29/18 11:14> - Assessment and Plan 42 y/o female admitted for osteomyelitis and endocarditis. On long-term IV antibiotics per ID recs. <Tip Mayer - 05/29/18 11:18> - Attending Attestation Patient seen with resident team this morning. I agree with documentation above. No major changes in management. Have placed call to her orthopedic surgeon to determine when eh can be removed. They will call back either later today or tomorrow. Discussed with patient at length our concerns about possible attempt at a drug deal overnight, reported to us by nursing staff. Restrictions will be placed if there are any further concerns and this was explained to patient. Also advised her not to have interactions with other patients, to exchange money, to let other patients use her phone, etc. <Tip Gtz - 05/29/18 16:52>
[2018-05-29] MEDS: traZODone 50 MG Tablet PO PRN (21:53)
[2018-05-30] MEDS: Ketorolac 10 MG Tablet PO SCH ×2 (00:51→05:23)
[2018-05-30] MEDS: Morphine Inj 4 MG/ML Vial IV.PUSH PRN ×6 (02:27→22:49)
[2018-05-30] MEDS: ceFAZolin 2 GM Premix Inj 2 GM/50 ML PIGGYBACK IV.SIG SCH ×3 (05:23→22:48)
[2018-05-30] MEDS: Methadone 10 MG Tablet PO SCH (08:21)
[2018-05-30] MEDS: Ferrous Sulfate 325 MG Tablet PO SCH (08:21)
[2018-05-30] MEDS: Gabapentin 300 MG Capsule PO SCH ×3 (08:21→18:53)
[2018-05-30] MEDS: Enoxaparin Inj 40 MG/0.4 ML Syringe SQ SCH (08:22)
[2018-05-30] MEDS: Senna/Docusate Sodium 8.6/50 MG Tablet PO SCH ×2 (08:23→22:49)
--- NOTE | 2018-05-30 11:57 | P.PNFP ---
Addendum entered and electronically signed by Tip Jaquez MD, R2 05/30 15:46: Call received from patient's orthopedic in [place]. OK to removed eh and can follow up once she leaves the hospital. Original Note: Subjective Interval history: Patient seen and examined today. No acute events overnight. Patient reports some continued minimal soreness in her right hip and occasional swelling in her legs. Improved upon lying in bed. No pain in calves. Denies nausea, vomiting, fever, chills, abdominal pain, chest pain, shortness of breath , lightheadedness, dizziness. Able to ambulate with walker. No other complaints today. <Tip Mayer - 05/30/18 14:12> Results - Labs Result diagrams: 05/30/18 13:52 05/30/18 13:52 <Tip Gtz - 05/30/18 17:51> Abnormal lab results 05/30/18 05/30/18 Range/Units 13:52 13:52 MCV 73.7 L (80.0-100.0) fL MCH 23.7 L (27.0-34.0) pg RDW 26.7 H (11.6-17.2) % Plt Count 541 H D (150-450) th/mm3 Sodium 135 L (136-145) meq/L Chloride 96 L (98-107) meq/L Estimated GFR 88 L (>89) mL/min Random Glucose 50 L (74-106) mg/dL Calcium 10.3 H (8.5-10.1) mg/dL Short CBC 05/30/18 Range/Units 13:52 WBC 8.4 (4.0-11.0) th/mm3 Hgb 11.8 (11.6-15.3) gm/dL Hct 36.5 (35.0-46.0) % Plt Count 541 H D (150-450) th/mm3 BMP 05/30/18 13:52 Sodium 135 L Potassium 4.5 Chloride 96 L Carbon Dioxide 30.0 BUN 17 Creatinine 0.73 Calcium 10.3 H <Tip Gtz - 05/30/18 17:51> Physical Exam Vital signs: Vital Signs 05/29/18 20:00 05/30/18 00:00 05/30/18 08:00 Temperature 98.7 F 97.1 F L 97.9 F Pulse Rate 97 H 96 H 86 Respiratory Rate 18 18 16 Blood Pressure 147/98 H 143/83 H 141/96 H Pulse Oximetry 97 97 98 05/30/18 12:00 Temperature 97.6 F Pulse Rate 86 Respiratory Rate 15 Blood Pressure 122/79 Pulse Oximetry 98 Intake & Output 05/29/18 05/30/18 05/30/18 18:59 06:59 18:59 Intake Total 1025 / 1025 440 / 440 50 / 50 Balance 1025 / 1025 440 / 440 50 / 50 Weight 51.8 kg Intake: IV 50 / 50 100 / 100 50 / 50 Ancef 2 GM Premix Inj 2 gm In 50 / 50 100 / 100 50 / 50 50 ml @ 100 mls/hr IV.SIG Q8H RENU Rx#:[id number] Oral 975 / 975 340 / 340 Other: # Voids 5 3 Date of Last Bowel Movement 05/28/18 05/28/18 # Bowel Movements 2 <Tip Gtz L - 05/30/18 17:51> Vital Signs 05/29/18 12:00 05/29/18 16:00 05/29/18 20:00 Temperature 97.4 F L 97.9 F 98.7 F Pulse Rate 97 H 95 H 97 H Respiratory Rate 17 16 18 Blood Pressure 133/76 134/96 H 147/98 H Pulse Oximetry 99 99 97 05/30/18 00:00 Temperature 97.1 F L Pulse Rate 96 H Respiratory Rate 18 Blood Pressure 143/83 H Pulse Oximetry 97 Intake & Output 05/29/18 05/30/18 05/30/18 18:59 06:59 18:59 Intake Total 1025 / 1025 440 / 440 Balance 1025 / 1025 440 / 440 Weight 51.8 kg Intake: IV 50 / 50 100 / 100 Ancef 2 GM Premix Inj 2 gm In 50 / 50 100 / 100 50 ml @ 100 mls/hr IV.SIG Q8H RENU Rx#:[id number] Oral 975 / 975 340 / 340 Other: # Voids 5 3 Date of Last Bowel Movement 05/28/18 05/28/18 # Bowel Movements 2 <Henry JaquezTipJuan - 05/30/18 11:57> Narrative: GENERAL: Laying in bed, cachectic, older than stated age SKIN: Warm and dry. Right hip bandage clean/dry/intact EYES: Pupils equal and round. No scleral icterus. No injection or drainage. CARDIOVASCULAR: Regular rate and rhythm. RESPIRATORY: No accessory muscle use. Clear to auscultation. Breath sounds equal bilaterally. MUSCULOSKELETAL: Extremities without clubbing, cyanosis, or edema. NEUROLOGICAL: Awake and alert. No obvious cranial nerve deficits. Motor grossly within normal limits. PSYCHIATRIC: Appropriate mood and affect; insight and judgment normal. <Tip Mayer A - 05/30/18 14:12> Assessment and Plan - Assessment (1) Bacterial arthritis of right hip Code(s): M00.851 - Arthritis due to other bacteria, right hip Status: Acute (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 Code(s): I33.0 - Acute and subacute infective endocarditis; B95.8 - Unspecified staphylococcus as the cause of diseases classified elsewhere Status: Acute (3) Stage II pressure ulcer of sacral region Code(s): L89.152 - Pressure ulcer of sacral region, stage 2 Status: Acute (4) Polysubstance abuse Code(s): F19.10 - Other psychoactive substance abuse, uncomplicated Status: Acute (5) Hepatitis C Code(s): B19.20 - Unspecified viral hepatitis C without hepatic coma Status: Acute (6) Anemia Code(s): D64.9 - Anemia, unspecified Status: Acute (7) Cachexia Code(s): R64 - Cachexia Status: Acute (8) Leg swelling Code(s): M79.89 - Other specified soft tissue disorders Status: Acute <Tip Gtz - 05/30/18 17:51> (1) Bacterial arthritis of right hip Code(s): M00.851 - Arthritis due to other bacteria, right hip Status: Acute Plan: S/p Right proximal femur resection (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 Incision site closure with eh. Tissue cx from 05/16 negative for growth On IV Ancef (05/14 - ), ID consulted and appreciated: Recommendations She will need Rx for osteomyelitis - at least 6-8 weeks IV Abx Follow labs while on IV Abx: weekly CBC, creatinine Continue Ancef Follow temps Monitor progress Plan: Con't pain medication regimen: Methadone PO 30 mg daily, wean over long-term Ibuprofen for pain 1-3 [place] 5/325 for pain 4-6 Morphine for severe pain/7-10 Gabapentin 300 mg TID for neuropathic pain PT for early mobilization - F/u ordered w/Dr. Cueva was supposed to happen around 2 weeks, likely around the week of the , (possibly for staple removal), but patient may be here for longer due to antibiotic treatment. 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 -physical therapy recommended wheeled walker -Continue to monitor -Continue mobilization with physical therapy (4) Polysubstance abuse Code(s): F19.10 - Other psychoactive substance abuse, uncomplicated Status: Acute Plan: Hx of IVDU (heroin, dilaudid, and other narcotics) and smoker Con't methadone 30 mg daily. Plan to wean in long-term Nicotine patches Case management to help with outpatient placement, preferably [facility] for drug rehab (5) Hepatitis C Code(s): B19.20 - Unspecified viral hepatitis C without hepatic coma Status: Acute Plan: Will require outpatient f/u and treatment (6) Anemia Code(s): D64.9 - Anemia, unspecified Status: Acute Plan: Stable Hx of anemia requiring 2 units PRBCs on 05/16 at [facility] Microcytic, likely 2/2 to iron def Continue daily Ferrous sulfate (7) Cachexia Code(s): R64 - Cachexia Status: Acute Plan: -ordered double portions (8) Leg swelling Code(s): M79.89 - Other specified soft tissue disorders Status: Acute Plan: Ultrasound of the right lower extremity on 05/24/18 was negative for DVT -Will attempt LORENA stocking <Tip Mayer - 05/30/18 14:11> - Assessment and Plan 42 y/o female admitted for osteomyelitis and endocarditis. On long-term IV antibiotics per ID recs. <Tip Mayer - 05/30/18 11:57> - Attending Attestation The exam, history, and the medical decision-making described in the above note were completed with the assistance of the resident physician. I reviewed and agree with the findings presented. I attest that I had a [id number] encounter with the patient on the same day, and personally performed and documented my assessment and findings in the medical record. I evaluated patient independently, and discussed management plan with resident. Agree with documentation above. She is status quo today. Still with leg swelling on the right, but no calf tenderness, erythema. Prior ultrasound ruled out DVT. Likely secondary to her hip operation. She is excited to be gaining weight. BMI today is 20.2. Discussed eating sufficient calories, but also trying to eat more healthy foods, as she is mostly eating junk foods. She is excited about rehab options for her opioid addiction. We discussed her plans again, and will continue to encourage and motivate her. She would benefit from methadone or Suboxone treatment when she leaves the hospital for maintenance therapy. Also discussed avoiding old triggers. We contacted orthopedics, and can proceed with removal of the eh. <Tip Gtz - 05/30/18 17:51>
[2018-05-30 14:18] LABS: Hematocrit 36.5 % (35.0-46.0); Hemoglobin 11.8 gm/dL (11.6-15.3); Mean Corpuscular HGB Conc 32.2 % (32.0-36.0); Mean Corpuscular Hemoglobin 23.7 pg (27.0-34.0); Mean Corpuscular Volume 73.7 fL (80.0-100.0); Mean Platelet Volume 7.5 fL (7.0-11.0); Platelet Count 541 th/mm3 (150-450); Red Blood Count 4.96 mil/mm3 (4.00-5.30); Red Cell Distribution Width 26.7 % (11.6-17.2); White Blood Count 8.4 th/mm3 (4.0-11.0)
[2018-05-30 14:57] LABS: Calcium 10.3 mg/dL (8.5-10.1); Potassium 4.5 meq/L (3.5-5.1)
[2018-05-30] MEDS: traZODone 50 MG Tablet PO PRN (23:01)
[2018-05-31] MEDS: ceFAZolin 2 GM Premix Inj 2 GM/50 ML PIGGYBACK IV.SIG SCH ×3 (04:08→20:43)
[2018-05-31] MEDS: Morphine Inj 4 MG/ML Vial IV.PUSH PRN ×5 (04:08→21:53)
[2018-05-31] MEDS: Enoxaparin Inj 40 MG/0.4 ML Syringe SQ SCH (08:19)
[2018-05-31] MEDS: Methadone 10 MG Tablet PO SCH (08:20)
[2018-05-31] MEDS: Gabapentin 300 MG Capsule PO SCH ×3 (08:20→17:30)
[2018-05-31] MEDS: Ferrous Sulfate 325 MG Tablet PO SCH (08:20)
[2018-05-31] MEDS: Senna/Docusate Sodium 8.6/50 MG Tablet PO SCH ×2 (08:21→20:43)
--- NOTE | 2018-05-31 09:32 | P.PNFP ---
Subjective Interval history: Patient seen and examined today. No acute events overnight. Patient reports some continued minimal soreness in her right hip and occasional swelling in her legs. Reports the compression stocking are helping with edema. No pain in calves. Denies nausea, vomiting, fever, chills, abdominal pain, chest pain, shortness of breath, lightheadedness, dizziness. Able to ambulate with walker. No other complaints today. <Tip Mayer - 05/31/18 09:32> Results - Labs Result diagrams: 05/30/18 13:52 05/30/18 13:52 <Tip Gtz - 06/01/18 19:28> Abnormal lab results 05/30/18 05/30/18 Range/Units 13:52 13:52 MCV 73.7 L (80.0-100.0) fL MCH 23.7 L (27.0-34.0) pg RDW 26.7 H (11.6-17.2) % Plt Count 541 H D (150-450) th/mm3 Sodium 135 L (136-145) meq/L Chloride 96 L (98-107) meq/L Estimated GFR 88 L (>89) mL/min Random Glucose 50 L (74-106) mg/dL Calcium 10.3 H (8.5-10.1) mg/dL Short CBC 05/30/18 Range/Units 13:52 WBC 8.4 (4.0-11.0) th/mm3 Hgb 11.8 (11.6-15.3) gm/dL Hct 36.5 (35.0-46.0) % Plt Count 541 H D (150-450) th/mm3 [facility] 05/30/18 13:52 Sodium 135 L Potassium 4.5 Chloride 96 L Carbon Dioxide 30.0 BUN 17 Creatinine 0.73 Calcium 10.3 H <Tip Mayer - 05/31/18 09:32> Physical Exam Vital signs: Vital Signs 05/31/18 20:00 06/01/18 00:00 06/01/18 07:58 Temperature 98.2 F 97.6 F 98.9 F Pulse Rate 92 H 107 H 96 H Respiratory Rate 18 18 18 Blood Pressure 144/78 H 166/85 H 168/87 H Pulse Oximetry 97 98 95 06/01/18 09:45 06/01/18 11:45 06/01/18 12:00 Temperature 98.1 F Pulse Rate 92 H Respiratory Rate 18 18 18 Blood Pressure 159/85 H Pulse Oximetry 98 06/01/18 16:00 Temperature 97.8 F Pulse Rate 111 H Respiratory Rate 18 Blood Pressure 122/74 Pulse Oximetry 100 Intake & Output 06/01/18 06/01/18 06/02/18 06:59 18:59 06:59 Intake Total 2500 / 2500 1550 / 1550 Balance 2500 / 2500 1550 / 1550 Weight 53.8 kg Intake: IV 100 / 100 50 / 50 Ancef 2 GM Premix Inj 2 gm In 100 / 100 50 / 50 50 ml @ 100 mls/hr IV.SIG Q8H RENU Rx#:[id number] Oral 2400 / 2400 1500 / 1500 Other: # Voids 6 5 Date of Last Bowel Movement 05/30/18 05/30/18 # Bowel Movements 1 <Tip Gtz - 06/01/18 19:28> Vital Signs 05/30/18 12:00 05/30/18 16:00 05/30/18 19:20 Temperature 97.6 F 97.9 F Pulse Rate 86 91 H Respiratory Rate 15 16 16 Blood Pressure 122/79 156/93 H Pulse Oximetry 98 98 05/30/18 20:00 05/31/18 00:00 05/31/18 04:00 Temperature 98.2 F 98.2 F 98.1 F Pulse Rate 82 86 82 Respiratory Rate 20 18 18 Blood Pressure 132/74 151/83 H 150/98 H Pulse Oximetry 97 92 L 96 05/31/18 08:00 Temperature 97.9 F Pulse Rate 80 Respiratory Rate 19 Blood Pressure 133/71 Pulse Oximetry 99 Intake & Output 05/30/18 05/31/18 05/31/18 18:59 06:59 18:59 Intake Total 50 / 50 1300 / 1300 Balance 50 / 50 1300 / 1300 Weight 53.9 kg Intake: IV 50 / 50 100 / 100 Ancef 2 GM Premix Inj 2 gm In 50 / 50 100 / 100 50 ml @ 100 mls/hr IV.SIG Q8H RENU Rx#:[id number] Oral 1200 / 1200 Other: # Voids 2 Date of Last Bowel Movement 05/30/18 <Tip Mayer - 05/31/18 09:32> Narrative: GENERAL: Laying in bed, cachectic, older than stated age SKIN: Warm and dry. Right hip bandage clean/dry/intact EYES: Pupils equal and round. No scleral icterus. No injection or drainage. CARDIOVASCULAR: Regular rate and rhythm. RESPIRATORY: No accessory muscle use. Clear to auscultation. Breath sounds equal bilaterally. MUSCULOSKELETAL: Extremities without clubbing, cyanosis, or edema. NEUROLOGICAL: Awake and alert. No obvious cranial nerve deficits. Motor grossly within normal limits. PSYCHIATRIC: Appropriate mood and affect; insight and judgment normal. Right hip surgical site examined with nurse in room. Wound clean, dry, nonerythematous, nontender, no pus or drainage. All 17 [place] removed with nurse in room. Minimal to no bleeding following removal. <Henry JaquezJuan - 05/31/18 09:32> Assessment and Plan - Assessment (1) Bacterial arthritis of right hip Code(s): M00.851 - Arthritis due to other bacteria, right hip Status: Acute (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 Code(s): I33.0 - Acute and subacute infective endocarditis; B95.8 - Unspecified staphylococcus as the cause of diseases classified elsewhere Status: Acute (3) Stage II pressure ulcer of sacral region Code(s): L89.152 - Pressure ulcer of sacral region, stage 2 Status: Acute (4) Polysubstance abuse Code(s): F19.10 - Other psychoactive substance abuse, uncomplicated Status: Acute (5) Hepatitis C Code(s): B19.20 - Unspecified viral hepatitis C without hepatic coma Status: Acute (6) Anemia Code(s): D64.9 - Anemia, unspecified Status: Acute (7) Cachexia Code(s): R64 - Cachexia Status: Acute (8) Leg swelling Code(s): M79.89 - Other specified soft tissue disorders Status: Acute <UlissesTip Genaro - 06/01/18 19:28> (1) Bacterial arthritis of right hip Code(s): M00.851 - Arthritis due to other bacteria, right hip Status: Acute Plan: S/p Right proximal femur resection (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 Incision site closure with eh. Tissue cx from 05/16 negative for growth On IV Ancef (05/14 - ), ID consulted and appreciated: Recommendations She will need Rx for osteomyelitis - at least 6-8 weeks IV Abx Follow labs while on IV Abx: weekly CBC, creatinine Continue Ancef Follow temps Monitor progress Plan: Con't pain medication regimen: Methadone PO 30 mg daily, wean over long-term Ibuprofen for pain 1-3 [place] 5/325 for pain 4-6 Morphine for severe pain/7-10 Gabapentin 300 mg TID for neuropathic pain PT for early mobilization - OK'd to remove eh by patient's ortho. [place] removed 05/31/16. To follow up outpatient with ortho following discharge. 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 -physical therapy recommended wheeled walker -Continue to monitor -Continue mobilization with physical therapy (4) Polysubstance abuse Code(s): F19.10 - Other psychoactive substance abuse, uncomplicated Status: Acute Plan: Hx of IVDU (heroin, dilaudid, and other narcotics) and smoker Con't methadone 30 mg daily. Plan to wean in long-term Nicotine patches Case management to help with outpatient placement, preferably [facility] for drug rehab (5) Hepatitis C Code(s): B19.20 - Unspecified viral hepatitis C without hepatic coma Status: Acute Plan: Will require outpatient f/u and treatment (6) Anemia Code(s): D64.9 - Anemia, unspecified Status: Acute Plan: Stable Hx of anemia requiring 2 units PRBCs on 05/16 at [facility] Microcytic, likely 2/2 to iron def Continue daily Ferrous sulfate (7) Cachexia Code(s): R64 - Cachexia Status: Acute Plan: -ordered double portions (8) Leg swelling Code(s): M79.89 - Other specified soft tissue disorders Status: Acute Plan: Ultrasound of the right lower extremity on 05/24/18 was negative for DVT -Will attempt LORENA stocking <Tip Mayer - 05/31/18 09:27> - Assessment and Plan 42 y/o female admitted for osteomyelitis and endocarditis. On long-term IV antibiotics per ID recs. <Tip Mayer - 05/31/18 09:32> - Attending Attestation The exam, history, and the medical decision-making described in the above note were completed with the assistance of the resident physician. I reviewed and agree with the findings presented. I attest that I had a [id number] encounter with the patient on the same day, and personally performed and documented my assessment and findings in the medical record. <Tip Gtz - 06/01/18 19:28>
[2018-06-01] MEDS: Morphine Inj 4 MG/ML Vial IV.PUSH PRN ×5 (02:21→20:43)
[2018-06-01] MEDS: ceFAZolin 2 GM Premix Inj 2 GM/50 ML PIGGYBACK IV.SIG SCH ×3 (05:35→20:42)
[2018-06-01] MEDS: Gabapentin 300 MG Capsule PO SCH ×3 (09:15→17:25)
[2018-06-01] MEDS: Methadone 10 MG Tablet PO SCH (09:15)
[2018-06-01] MEDS: Enoxaparin Inj 40 MG/0.4 ML Syringe SQ SCH (09:16)
[2018-06-01] MEDS: Senna/Docusate Sodium 8.6/50 MG Tablet PO SCH ×2 (09:16→20:43)
[2018-06-01] MEDS: Ferrous Sulfate 325 MG Tablet PO SCH (09:16)
--- NOTE | 2018-06-01 12:34 | P.PNFP ---
Subjective Interval history: Patient seen with Dr. Ko and Dr. Monk. She is sitting up in chair, in no distress. Reports continued swelling of the right leg, but improved from before with the compression stocking. Reports no drainage or swelling of her incision site of the right hip. No chest pain, shortness of breath, abdominal pain, nausea, vomiting, diarrhea. Eating well. Results - Labs Result diagrams: 05/30/18 13:52 05/30/18 13:52 Physical Exam Vital signs: Vital Signs 05/31/18 14:14 05/31/18 16:00 05/31/18 18:46 Temperature 98.2 F Pulse Rate 86 Respiratory Rate 15 20 15 Blood Pressure 147/77 H Pulse Oximetry 98 05/31/18 20:00 06/01/18 00:00 06/01/18 07:58 Temperature 98.2 F 97.6 F 98.9 F Pulse Rate 92 H 107 H 96 H Respiratory Rate 18 18 18 Blood Pressure 144/78 H 166/85 H 168/87 H Pulse Oximetry 97 98 95 06/01/18 09:45 06/01/18 11:45 06/01/18 12:00 Temperature 98.1 F Pulse Rate 92 H Respiratory Rate 18 18 18 Blood Pressure 159/85 H Pulse Oximetry 98 Intake & Output 05/31/18 06/01/18 06/01/18 18:59 06:59 18:59 Intake Total 1250 / 1250 2500 / 2500 Balance 1250 / 1250 2500 / 2500 Weight 53.8 kg Intake: IV 50 / 50 100 / 100 Ancef 2 GM Premix Inj 2 gm In 50 / 50 100 / 100 50 ml @ 100 mls/hr IV.SIG Q8H RENU Rx#:[id number] Oral 1200 / 1200 2400 / 2400 Other: # Voids 3 6 Date of Last Bowel Movement 05/30/18 05/30/18 05/30/18 Narrative: GENERAL: Sitting up in chair, no distress SKIN: Right hip incision site inspected, no swelling, drainage, incision without dehiscence EYES: Pupils equal and round. No scleral icterus. No injection or drainage. CARDIOVASCULAR: Regular rate and rhythm, no murmurs, rubs, or gallops, regular pulses, normal cap refill RESPIRATORY: No accessory muscle use. Clear to auscultation. Breath sounds equal bilaterally. MUSCULOSKELETAL: Extremities without clubbing, cyanosis, or edema. NEUROLOGICAL: Awake and alert. No obvious cranial nerve deficits. Motor grossly within normal limits. PSYCHIATRIC: Appropriate mood and affect; insight and judgment normal. [employer] present for incision inspection Assessment and Plan - Assessment (1) Bacterial arthritis of right hip Code(s): M00.851 - Arthritis due to other bacteria, right hip Status: Acute Plan: S/p Right proximal femur resection (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 Incision site closure with eh. Tissue cx from 05/16 negative for growth On IV Ancef (05/14 - ), ID consulted and appreciated: Recommendations She will need Rx for osteomyelitis - at least 6-8 weeks IV Abx Follow labs while on IV Abx: weekly CBC, creatinine Continue Ancef Follow temps Monitor progress Plan: Con't pain medication regimen: Methadone PO 30 mg daily, wean over long-term Ibuprofen for pain 1-3 [place] 5/325 for pain 4-6 Morphine for severe pain/7-10 Gabapentin 300 mg TID for neuropathic pain PT for early mobilization - OK'd to remove eh by patient's ortho. Eh removed 05/31/16. To follow up outpatient with ortho following discharge. 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 -physical therapy recommended wheeled walker -Continue to monitor -Continue mobilization with physical therapy (4) Polysubstance abuse Code(s): F19.10 - Other psychoactive substance abuse, uncomplicated Status: Acute Plan: Hx of IVDU (heroin, dilaudid, and other narcotics) and smoker Con't methadone 30 mg daily. Plan to wean in long-term Nicotine patches Case management to help with outpatient placement, preferably [facility] for drug rehab Could also benefit from methadone or Suboxone outpatient (5) Hepatitis C Code(s): B19.20 - Unspecified viral hepatitis C without hepatic coma Status: Acute Plan: Will require outpatient f/u and treatment (6) Anemia Code(s): D64.9 - Anemia, unspecified Status: Acute Plan: Stable Hx of anemia requiring 2 units PRBCs on 05/16 at [facility] Microcytic, likely 2/2 to iron def Continue daily Ferrous sulfate (7) Cachexia Code(s): R64 - Cachexia Status: Acute Plan: -ordered double portions, eating well and gaining weight (8) Leg swelling Code(s): M79.89 - Other specified soft tissue disorders Status: Acute Plan: Ultrasound of the right lower extremity on 05/24/18 was negative for DVT - Using compression stocking to good effect - Assessment and Plan 42 y/o female admitted for osteomyelitis and endocarditis. On long-term IV antibiotics per ID recs. Discussed Condition With: Seen and discussed with Dr. Ko, Dr. Monk Discharge Planning: Will require assisted antibiotics and outpatient resources to help with substance abuse and addiction
[2018-06-01] MEDS: traZODone 50 MG Tablet PO PRN (20:43)
[2018-06-02] MEDS: Morphine Inj 4 MG/ML Vial IV.PUSH PRN ×6 (00:59→22:26)
[2018-06-02] MEDS: ceFAZolin 2 GM Premix Inj 2 GM/50 ML PIGGYBACK IV.SIG SCH ×3 (05:49→21:00)
[2018-06-02] MEDS: Methadone 10 MG Tablet PO SCH (09:03)
[2018-06-02] MEDS: Senna/Docusate Sodium 8.6/50 MG Tablet PO SCH ×2 (09:03→20:58)
[2018-06-02] MEDS: Enoxaparin Inj 40 MG/0.4 ML Syringe SQ SCH (09:03)
[2018-06-02] MEDS: Gabapentin 300 MG Capsule PO SCH ×3 (09:03→17:55)
[2018-06-02] MEDS: Ferrous Sulfate 325 MG Tablet PO SCH (09:03)
--- NOTE | 2018-06-02 09:06 | P.PNFP ---
Subjective Interval history: Patient seen and examined at bedside this morning. No events overnight. She denies any chest pain, shortness of breath, abdominal pain, problems with urination or defecation. Still does confirm some leg swelling but has resolved with LORENA stockings. All questions were answered at bedside. <Katelyn Reyes - 06/02/18 09:31> Results - Labs Result diagrams: 05/30/18 13:52 05/30/18 13:52 <UlissesTip Genaro - 06/02/18 16:12> Physical Exam Vital signs: Vital Signs 06/01/18 20:00 06/01/18 23:27 06/02/18 00:00 Temperature 98.1 F 97.9 F Pulse Rate 103 H 82 Respiratory Rate 20 22 Blood Pressure 127/69 118/75 Pulse Oximetry 97 97 06/02/18 01:53 06/02/18 07:50 06/02/18 11:05 Temperature 97.8 F 97.8 F Pulse Rate 77 89 Respiratory Rate 20 20 20 Blood Pressure 133/85 127/70 Pulse Oximetry 96 96 06/02/18 15:15 Temperature 97.7 F Pulse Rate 91 H Respiratory Rate 20 Blood Pressure 141/66 H Pulse Oximetry 95 Intake & Output 06/01/18 06/02/18 06/02/18 18:59 06:59 18:59 Intake Total 1550 / 1550 50 / 50 100 / 100 Balance 1550 / 1550 50 / 50 100 / 100 Weight 50.4 kg Intake: IV 50 / 50 50 / 50 100 / 100 Ancef 2 GM Premix Inj 2 gm In 50 / 50 50 / 50 100 / 100 50 ml @ 100 mls/hr IV.SIG Q8H [facility] Rx#:[id number] Oral 1500 / 1500 Other: # Voids 5 2 Date of Last Bowel Movement 05/30/18 # Bowel Movements 1 <Tip Gtz - 06/02/18 16:12> Vital Signs 06/01/18 09:45 06/01/18 11:45 06/01/18 12:00 Temperature 98.1 F Pulse Rate 92 H Respiratory Rate 18 18 18 Blood Pressure 159/85 H Pulse Oximetry 98 06/01/18 16:00 06/01/18 20:00 06/01/18 23:27 Temperature 97.8 F 98.1 F Pulse Rate 111 H 103 H Respiratory Rate 18 20 22 Blood Pressure 122/74 127/69 Pulse Oximetry 100 97 06/02/18 00:00 06/02/18 01:53 06/02/18 07:50 Temperature 97.9 F 97.8 F Pulse Rate 82 77 Respiratory Rate 20 20 Blood Pressure 118/75 133/85 Pulse Oximetry 97 96 Intake & Output 06/01/18 06/02/18 06/02/18 18:59 06:59 18:59 Intake Total 1550 / 1550 50 / 50 50 / 50 Balance 1550 / 1550 50 / 50 50 / 50 Weight 50.4 kg Intake: IV 50 / 50 50 / 50 50 / 50 Ancef 2 GM Premix Inj 2 gm In 50 / 50 50 / 50 50 / 50 50 ml @ 100 mls/hr IV.SIG Q8H [facility] Rx#:[id number] Oral 1500 / 1500 Other: # Voids 5 2 Date of Last Bowel Movement 05/30/18 # Bowel Movements 1 <Katelyn Reyes - 06/02/18 09:06> Narrative: GENERAL: Sitting up in chair, no distress SKIN: Right hip incision site inspected, no swelling, drainage, incision without dehiscence EYES: Pupils equal and round. No scleral icterus. No injection or drainage. CARDIOVASCULAR: Regular rate and rhythm, no murmurs, rubs, or gallops, regular pulses, normal cap refill RESPIRATORY: No accessory muscle use. Clear to auscultation. Breath sounds equal bilaterally. MUSCULOSKELETAL: Extremities without clubbing, cyanosis, or edema. NEUROLOGICAL: Awake and alert. No obvious cranial nerve deficits. Motor grossly within normal limits. PSYCHIATRIC: Appropriate mood and affect; insight and judgment normal. Quality Assurance Coach present for incision inspection <Katelyn Reyes - 06/02/18 09:31> Assessment and Plan - Assessment (1) Bacterial arthritis of right hip Code(s): M00.851 - Arthritis due to other bacteria, right hip Status: Acute (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 Code(s): I33.0 - Acute and subacute infective endocarditis; B95.8 - Unspecified staphylococcus as the cause of diseases classified elsewhere Status: Acute (3) Stage II pressure ulcer of sacral region Code(s): L89.152 - Pressure ulcer of sacral region, stage 2 Status: Acute (4) Polysubstance abuse Code(s): F19.10 - Other psychoactive substance abuse, uncomplicated Status: Acute (5) Hepatitis C Code(s): B19.20 - Unspecified viral hepatitis C without hepatic coma Status: Acute (6) Anemia Code(s): D64.9 - Anemia, unspecified Status: Acute (7) Cachexia Code(s): R64 - Cachexia Status: Acute (8) Leg swelling Code(s): M79.89 - Other specified soft tissue disorders Status: Acute <Tip Gtz - 06/02/18 16:12> (1) Bacterial arthritis of right hip Code(s): M00.851 - Arthritis due to other bacteria, right hip Status: Acute Plan: S/p Right proximal femur resection (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 Incision site closure with jimy. Tissue cx from 05/16 negative for growth On IV Ancef (05/14 - ), ID consulted and appreciated: Recommendations She will need Rx for osteomyelitis - at least 6-8 weeks IV Abx. AB to stop July 10 per ID. Follow labs while on IV Abx: weekly CBC, creatinine Continue Ancef Follow temps Monitor progress Plan: Con't pain medication regimen: Methadone PO 30 mg daily, wean over long-term Ibuprofen for pain 1-3 [place] 5/325 for pain 4-6 Morphine for severe pain/7-10 Gabapentin 300 mg TID for neuropathic pain PT for early mobilization - OK'd to remove jimy by patient's ortho. Jimy removed 05/31/16. To follow up outpatient with ortho following discharge. 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 -Will D/C Ab on Jul 10 and transfer to addiction rehab facility. -CM consulted to assist with placement (3) Stage II pressure ulcer of sacral region Code(s): L89.152 - Pressure ulcer of sacral region, stage 2 Status: Acute Plan: Pressure ulcer over sacral region now healing. -physical therapy recommended wheeled walker -Continue to monitor -Continue mobilization with physical therapy (4) Polysubstance abuse Code(s): F19.10 - Other psychoactive substance abuse, uncomplicated Status: Acute Plan: Hx of IVDU (heroin, dilaudid, and other narcotics) and smoker Con't methadone 30 mg daily. Plan to wean in long-term Nicotine patches Case management to help with outpatient placement, preferably [facility] for drug rehab Could also benefit from methadone or Suboxone outpatient (5) Hepatitis C Code(s): B19.20 - Unspecified viral hepatitis C without hepatic coma Status: Acute Plan: Will require outpatient f/u and treatment (6) Anemia Code(s): D64.9 - Anemia, unspecified Status: Acute Plan: Stable Hx of anemia requiring 2 units PRBCs on 05/16 at [facility] Microcytic, likely 2/2 to iron def Continue daily Ferrous sulfate (7) Cachexia Code(s): R64 - Cachexia Status: Acute Plan: -ordered double portions, eating well and gaining weight (8) Leg swelling Code(s): M79.89 - Other specified soft tissue disorders Status: Acute Plan: Ultrasound of the right lower extremity on 05/24/18 was negative for DVT - Using compression stocking to good effect <Katelyn Reyes - 06/02/18 09:32> - Assessment and Plan 42 y/o female admitted for osteomyelitis and endocarditis. On long-term IV antibiotics per ID recs. <Katelyn Reyes 06/02/18 09:06> - Attending Attestation The exam, history, and the medical decision-making described in the above note were completed with the assistance of the resident physician. I reviewed and agree with the findings presented. I attest that I had a [id number] encounter with the patient on the same day, and personally performed and documented my assessment and findings in the medical record. I evaluated patient this afternoon. She is resting in bed, no distress. Pain well controlled with Ibuprofen. Continuing to get around well despite significant hip surgery. Discussed opioid addiction rehab in the outpatient setting. Discussed time frame for mcfp antibiotics. <Tip Gtz - 06/02/18 16:12>
[2018-06-03] MEDS: Morphine Inj 4 MG/ML Vial IV.PUSH PRN ×5 (02:22→20:49)
[2018-06-03] MEDS: ceFAZolin 2 GM Premix Inj 2 GM/50 ML PIGGYBACK IV.SIG SCH ×3 (05:52→20:50)
--- NOTE | 2018-06-03 09:04 | P.PNFP ---
Subjective Interval history: Patient seen and examined at bedside this morning. No events overnight. Patient is focusing on organizing her rehab placement after discharge. She denies any chest pain, shortness of breath, abdominal pain, problems with urination or defecation. All questions were answered at bedside. <Katelyn Reyes - 06/03/18 09:55> Results - Labs Result diagrams: 06/03/18 08:37 06/03/18 08:37 <Tip Gtz - 06/04/18 17:03> Physical Exam Vital signs: Vital Signs 06/03/18 20:00 06/04/18 00:00 06/04/18 04:00 Temperature 98.1 F 97.3 F L 97.9 F Pulse Rate 100 H 85 84 Respiratory Rate 16 16 16 Blood Pressure 132/76 133/79 116/70 Pulse Oximetry 96 97 98 06/04/18 07:00 06/04/18 08:00 06/04/18 12:00 Temperature 98.1 F 97.4 F L Pulse Rate 68 93 H Respiratory Rate 16 18 16 Blood Pressure 138/83 114/60 Pulse Oximetry 98 97 06/04/18 16:00 Temperature 97.7 F Pulse Rate 82 Respiratory Rate 16 Blood Pressure 118/60 Pulse Oximetry 99 Intake & Output 06/03/18 06/04/18 06/04/18 18:59 06:59 18:59 Intake Total 150 / 150 460 / 460 50 / 50 Balance 150 / 150 460 / 460 50 / 50 Weight 48.6 kg Intake: IV 150 / 150 100 / 100 50 / 50 Ancef 2 GM Premix Inj 2 gm In 150 / 150 100 / 100 50 / 50 50 ml @ 100 mls/hr IV.SIG Q8H [facility] Rx#:[id number] Oral 360 / 360 Other: # Voids 3 Date of Last Bowel Movement 06/03/18 # Bowel Movements 0 <Tip Gtz - 06/04/18 17:03> Vital Signs 06/02/18 11:05 06/02/18 15:15 06/02/18 20:00 Temperature 97.8 F 97.7 F 97.4 F L Pulse Rate 89 91 H 93 H Respiratory Rate 20 20 16 Blood Pressure 127/70 141/66 H 124/72 Pulse Oximetry 96 95 96 06/03/18 00:00 Temperature 98.6 F Pulse Rate 84 Respiratory Rate 16 Blood Pressure 130/72 Pulse Oximetry 96 Intake & Output 06/02/18 06/03/18 06/03/18 18:59 06:59 18:59 Intake Total 820 / 820 830 / 830 Output Total Balance 814 / 814 830 / 830 Weight 50 kg Intake: IV 100 / 100 50 / 50 Ancef 2 GM Premix Inj 2 gm In 100 / 100 50 / 50 50 ml @ 100 mls/hr IV.SIG Q8H [facility] Rx#:[id number] Oral 720 / 720 780 / 780 Output: Urine Other: # Voids 6 3 Date of Last Bowel Movement 06/02/18 <Katelyn Reyes - 06/03/18 09:04> Narrative: GENERAL: Sitting up in chair, no distress SKIN: Right hip incision site inspected, no swelling, slight drainage of clear fluid, incision without dehiscence. Dressing changed. EYES: Pupils equal and round. No scleral icterus. No injection or drainage. CARDIOVASCULAR: Regular rate and rhythm, no murmurs, rubs, or gallops, regular pulses, normal cap refill RESPIRATORY: No accessory muscle use. Clear to auscultation. Breath sounds equal bilaterally. MUSCULOSKELETAL: Extremities without clubbing, cyanosis, or edema. NEUROLOGICAL: Awake and alert. No obvious cranial nerve deficits. Motor grossly within normal limits. PSYCHIATRIC: Appropriate mood and affect; insight and judgment normal. Food Service Representative present for incision inspection <Katelyn Reyes - 06/03/18 09:55> Assessment and Plan - Assessment (1) Bacterial arthritis of right hip Code(s): M00.851 - Arthritis due to other bacteria, right hip Status: Acute (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 Code(s): I33.0 - Acute and subacute infective endocarditis; B95.8 - Unspecified staphylococcus as the cause of diseases classified elsewhere Status: Acute (3) Stage II pressure ulcer of sacral region Code(s): L89.152 - Pressure ulcer of sacral region, stage 2 Status: Acute (4) Polysubstance abuse Code(s): F19.10 - Other psychoactive substance abuse, uncomplicated Status: Acute (5) Hepatitis C Code(s): B19.20 - Unspecified viral hepatitis C without hepatic coma Status: Acute (6) Anemia Code(s): D64.9 - Anemia, unspecified Status: Acute (7) Cachexia Code(s): R64 - Cachexia Status: Acute (8) Leg swelling Code(s): M79.89 - Other specified soft tissue disorders Status: Acute (9) Contact dermatitis Code(s): L25.9 - Unspecified contact dermatitis, unspecified cause Status: Acute <Tip Gtz - 06/04/18 17:03> (1) Bacterial arthritis of right hip Code(s): M00.851 - Arthritis due to other bacteria, right hip Status: Acute Plan: S/p Right proximal femur resection (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 Incision site closure with eh. Tissue cx from 05/16 negative for growth On IV Ancef (05/14 - ), ID consulted and appreciated: Recommendations She will need Rx for osteomyelitis - at least 6-8 weeks IV Abx. AB to stop July 10 per ID. Incision site dressing changed today. Follow labs while on IV Abx: weekly CBC, creatinine. WNL today. Continue Ancef Follow temps Monitor progress Plan: Con't pain medication regimen: Methadone PO 30 mg daily, wean over long-term Ibuprofen for pain 1-3 [place] 5/325 for pain 4-6 Morphine for severe pain 7-10 Gabapentin 300 mg TID for neuropathic pain PT for early mobilization - OK'd to remove eh by patient's ortho. [place] removed 05/31/16. To follow up outpatient with ortho following discharge. 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 -Will D/C Ab on Jul 10 and transfer to addiction rehab facility. -CM consulted to assist with placement (3) Stage II pressure ulcer of sacral region Code(s): L89.152 - Pressure ulcer of sacral region, stage 2 Status: Acute Plan: Pressure ulcer over sacral region now healing. -physical therapy recommended wheeled walker -Continue to monitor -Continue mobilization with physical therapy (4) Polysubstance abuse Code(s): F19.10 - Other psychoactive substance abuse, uncomplicated Status: Acute Plan: Hx of IVDU (heroin, dilaudid, and other narcotics) and smoker Con't methadone 30 mg daily. Plan to wean in long-term Nicotine patches Case management to help with outpatient placement, [facility] Could also benefit from methadone or Suboxone outpatient (5) Hepatitis C Code(s): B19.20 - Unspecified viral hepatitis C without hepatic coma Status: Acute Plan: Will require outpatient f/u and treatment (6) Anemia Code(s): D64.9 - Anemia, unspecified Status: Acute Plan: Stable Hx of anemia requiring 2 units PRBCs on 05/16 at [facility] Microcytic, likely 2/2 to iron def Continue daily Ferrous sulfate (7) Cachexia Code(s): R64 - Cachexia Status: Acute Plan: -ordered double portions, eating well and gaining weight (8) Leg swelling Code(s): M79.89 - Other specified soft tissue disorders Status: Acute Plan: Ultrasound of the right lower extremity on 05/24/18 was negative for DVT - Using compression stocking to good effect <Katelyn Reyes - 06/03/18 09:58> - Assessment and Plan 42 y/o female admitted for osteomyelitis and endocarditis. On long-term IV antibiotics per ID recs. <Katelyn Reyes - 06/03/18 09:04> - Attending Attestation The exam, history, and the medical decision-making described in the above note were completed with the assistance of the resident physician. I reviewed and agree with the findings presented. I attest that I had a [id number] encounter with the patient on the same day, and personally performed and documented my assessment and findings in the medical record. <Tip Gtz - 06/04/18 17:03>
[2018-06-03 09:35] LABS: Baso # (Auto) 0.1 th/mm3 (0.0-0.2); Baso % (Auto) 1.2 % (0.0-2.0); Eos # (Auto) 0.2 th/mm3 (0.0-0.4); Eos % (Auto) 2.8 % (0.0-4.0); Hematocrit 35.9 % (35.0-46.0); Hemoglobin 11.1 gm/dL (11.6-15.3); Lymph % (Auto) 44.5 % (9.0-44.0); Mean Corpuscular Hemoglobin 23.4 pg (27.0-34.0); Mean Corpuscular Volume 76.1 fL (80.0-100.0); Mean Platelet Volume 7.3 fL (7.0-11.0); Mono % (Auto) 14.8 % (0.0-8.0); Neut # (Auto) 2.4 th/mm3 (1.8-7.7); Neut % (Auto) 36.7 % (16.0-70.0); Platelet Count 356 th/mm3 (150-450); Red Blood Count 4.72 mil/mm3 (4.00-5.30); Red Cell Distribution Width 27.4 % (11.6-17.2); White Blood Count 6.6 th/mm3 (4.0-11.0)
[2018-06-03] MEDS: Senna/Docusate Sodium 8.6/50 MG Tablet PO SCH ×2 (09:45→20:49)
[2018-06-03] MEDS: Gabapentin 300 MG Capsule PO SCH ×3 (09:45→18:14)
[2018-06-03] MEDS: Ferrous Sulfate 325 MG Tablet PO SCH (09:45)
[2018-06-03] MEDS: Methadone 10 MG Tablet PO SCH (09:46)
[2018-06-03] MEDS: Enoxaparin Inj 40 MG/0.4 ML Syringe SQ SCH (09:46)
[2018-06-03 09:47] LABS: Mean Corpuscular HGB Conc 30.8 % (32.0-36.0)
[2018-06-03 09:51] LABS: Anion Gap 7 meq/L (5-15); Blood Urea Nitrogen 19 mg/dL (7-18); Calcium 9.9 mg/dL (8.5-10.1); Carbon Dioxide 26.7 meq/L (21.0-32.0); Chloride 101 meq/L (98-107); Glomerular Filtration Rate Greater Than 89 mL/min (>89); Glucose,Random 56 mg/dL (74-106); Potassium 4.6 meq/L (3.5-5.1); Sodium 135 meq/L (136-145)
[2018-06-03 10:29] LABS: Eosinophils 7 % (0-4); Lymphocytes 34 % (9-44); Monocytes 15 % (0-8); Myelocytes 4 % (0-0)
[2018-06-03 10:30] LABS: Dimorphic RBC Present
[2018-06-03 10:31] LABS: Platelet Estimate Normal (Normal); Platelet Morphology Normal (Normal)
[2018-06-03] MEDS: traZODone 50 MG Tablet PO PRN (22:18)
[2018-06-04] MEDS: Morphine Inj 4 MG/ML Vial IV.PUSH PRN ×5 (02:30→20:58)
[2018-06-04] MEDS: ceFAZolin 2 GM Premix Inj 2 GM/50 ML PIGGYBACK IV.SIG SCH ×3 (05:43→21:59)
[2018-06-04] MEDS: Methadone 10 MG Tablet PO SCH (08:19)
[2018-06-04] MEDS: Senna/Docusate Sodium 8.6/50 MG Tablet PO SCH ×2 (08:19→20:57)
[2018-06-04] MEDS: Enoxaparin Inj 40 MG/0.4 ML Syringe SQ SCH (08:19)
[2018-06-04] MEDS: Ferrous Sulfate 325 MG Tablet PO SCH (08:19)
[2018-06-04] MEDS: Gabapentin 300 MG Capsule PO SCH ×4 (08:20→17:47)
--- NOTE | 2018-06-04 11:16 | P.PNFP ---
Subjective Interval history: Patient seen and examined today. No acute events overnight. Patient reports some continued minimal soreness in her right hip and occasional swelling in her legs. Reports the compression stocking are helping with edema. No pain in calves. Denies nausea, vomiting, fever, chills, abdominal pain, chest pain, shortness of breath, lightheadedness, dizziness. Able to ambulate with walker. Patient notes a "rash" surrounding her hip incision. This is been present for approximately 1 day. Denies any significant drainage, bleeding , pus. Itchiness present. No other complaints today. <Tip Mayer - 06/04/18 11:16> Results - Labs Result diagrams: 06/03/18 08:37 06/03/18 08:37 <Silvio Ott - 06/04/18 11:31> Physical Exam Vital signs: Vital Signs 06/03/18 11:51 06/03/18 16:00 06/03/18 20:00 Temperature 97.6 F 97.8 F 98.1 F Pulse Rate 91 H 95 H 100 H Respiratory Rate 15 16 16 Blood Pressure 135/84 170/95 H 132/76 Pulse Oximetry 100 100 96 06/04/18 00:00 06/04/18 04:00 06/04/18 07:00 Temperature 97.3 F L 97.9 F Pulse Rate 85 84 Respiratory Rate 16 16 16 Blood Pressure 133/79 116/70 Pulse Oximetry 97 98 06/04/18 08:00 Temperature 98.1 F Pulse Rate 68 Respiratory Rate 18 Blood Pressure 138/83 Pulse Oximetry 98 Intake & Output 06/03/18 06/04/18 06/04/18 18:59 06:59 18:59 Intake Total 150 / 150 460 / 460 Balance 150 / 150 460 / 460 Weight 48.6 kg Intake: IV 150 / 150 100 / 100 Ancef 2 GM Premix Inj 2 gm In 150 / 150 100 / 100 50 ml @ 100 mls/hr IV.SIG Q8H [facility] Rx#:[id number] Oral 360 / 360 Other: # Voids 3 Date of Last Bowel Movement 06/03/18 # Bowel Movements 0 <Silvio Ott - 06/04/18 11:31> Vital Signs 06/03/18 11:51 06/03/18 16:00 06/03/18 20:00 Temperature 97.6 F 97.8 F 98.1 F Pulse Rate 91 H 95 H 100 H Respiratory Rate 15 16 16 Blood Pressure 135/84 170/95 H 132/76 Pulse Oximetry 100 100 96 06/04/18 00:00 06/04/18 04:00 06/04/18 07:00 Temperature 97.3 F L 97.9 F Pulse Rate 85 84 Respiratory Rate 16 16 16 Blood Pressure 133/79 116/70 Pulse Oximetry 97 98 06/04/18 08:00 Temperature 98.1 F Pulse Rate 68 Respiratory Rate 18 Blood Pressure 138/83 Pulse Oximetry 98 Intake & Output 06/03/18 06/04/18 06/04/18 18:59 06:59 18:59 Intake Total 150 / 150 460 / 460 Balance 150 / 150 460 / 460 Weight 48.6 kg Intake: IV 150 / 150 100 / 100 Ancef 2 GM Premix Inj 2 gm In 150 / 150 100 / 100 50 ml @ 100 mls/hr IV.SIG Q8H [facility] Rx#:[id number] Oral 360 / 360 Other: # Voids 3 Date of Last Bowel Movement 06/03/18 # Bowel Movements 0 <Henry JaquezTip Gonsales - 06/04/18 11:16> Narrative: GENERAL: Sitting up in chair, no distress SKIN: Right hip incision site inspected, no swelling, slight drainage of clear fluid, incision without dehiscence. Erythema surrounding incision, however not touching it. Erythema slowly present where tape was touching skin. Dressing changed. EYES: Pupils equal and round. No scleral icterus. No injection or drainage. CARDIOVASCULAR: Regular rate and rhythm, no murmurs, rubs, or gallops, regular pulses, normal cap refill RESPIRATORY: No accessory muscle use. Clear to auscultation. Breath sounds equal bilaterally. MUSCULOSKELETAL: Extremities without clubbing, cyanosis, or edema. NEUROLOGICAL: Awake and alert. No obvious cranial nerve deficits. Motor grossly within normal limits. PSYCHIATRIC: Appropriate mood and affect; insight and judgment normal. <Henry JaquezTip Gonsales - 06/04/18 11:16> Assessment and Plan - Assessment (1) Bacterial arthritis of right hip Code(s): M00.851 - Arthritis due to other bacteria, right hip Status: Acute (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 Code(s): I33.0 - Acute and subacute infective endocarditis; B95.8 - Unspecified staphylococcus as the cause of diseases classified elsewhere Status: Acute (3) Stage II pressure ulcer of sacral region Code(s): L89.152 - Pressure ulcer of sacral region, stage 2 Status: Acute (4) Polysubstance abuse Code(s): F19.10 - Other psychoactive substance abuse, uncomplicated Status: Acute (5) Hepatitis C Code(s): B19.20 - Unspecified viral hepatitis C without hepatic coma Status: Acute (6) Anemia Code(s): D64.9 - Anemia, unspecified Status: Acute (7) Cachexia Code(s): R64 - Cachexia Status: Acute (8) Leg swelling Code(s): M79.89 - Other specified soft tissue disorders Status: Acute (9) Contact dermatitis Code(s): L25.9 - Unspecified contact dermatitis, unspecified cause Status: Acute <Silvio Ott - 06/04/18 11:31> (1) Bacterial arthritis of right hip Code(s): M00.851 - Arthritis due to other bacteria, right hip Status: Acute Plan: S/p Right proximal femur resection (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 Incision site closure with eh. Tissue cx from 05/16 negative for growth On IV Ancef (05/14 - ), ID consulted and appreciated: Recommendations She will need Rx for osteomyelitis - at least 6-8 weeks IV Abx. AB to stop July 10 per ID. Incision site dressing changed today. Follow labs while on IV Abx: weekly CBC, creatinine. WNL today. Continue Ancef Follow temps Monitor progress Plan: Con't pain medication regimen: Methadone PO 30 mg daily, wean over long-term Ibuprofen for pain 1-3 [place] 5/325 for pain 4-6 Morphine for severe pain 7-10 Gabapentin 300 mg TID for neuropathic pain PT for early mobilization - OK'd to remove eh by patient's ortho. [place] removed 05/31/16. To follow up outpatient with ortho following discharge. 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 -Will D/C Ab on Jul 10 and transfer to addiction rehab facility. -CM consulted to assist with placement (3) Stage II pressure ulcer of sacral region Code(s): L89.152 - Pressure ulcer of sacral region, stage 2 Status: Acute Plan: Pressure ulcer over sacral region now healing. -physical therapy recommended wheeled walker -Continue to monitor -Continue mobilization with physical therapy (4) Polysubstance abuse Code(s): F19.10 - Other psychoactive substance abuse, uncomplicated Status: Acute Plan: Hx of IVDU (heroin, dilaudid, and other narcotics) and smoker Con't methadone 30 mg daily. Plan to wean in long-term Nicotine patches Case management to help with outpatient placement, preferably [facility] for drug rehab Could also benefit from methadone or Suboxone outpatient (5) Hepatitis C Code(s): B19.20 - Unspecified viral hepatitis C without hepatic coma Status: Acute Plan: Will require outpatient f/u and treatment (6) Anemia Code(s): D64.9 - Anemia, unspecified Status: Acute Plan: Stable Hx of anemia requiring 2 units PRBCs on 05/16 at [facility] Microcytic, likely 2/2 to iron def Continue daily Ferrous sulfate (7) Cachexia Code(s): R64 - Cachexia Status: Acute Plan: -ordered double portions, eating well and gaining weight (8) Leg swelling Code(s): M79.89 - Other specified soft tissue disorders Status: Acute Plan: Ultrasound of the right lower extremity on 05/24/18 was negative for DVT - Using compression stocking to good effect (9) Contact dermatitis Code(s): L25.9 - Unspecified contact dermatitis, unspecified cause Status: Acute Plan: Contact dermatitis likely secondary to tape adhesive. -Removed dressing 06/04/17, advised on proper cleaning, will continue to monitor <Tip Mayer - 06/04/18 11:11> - Assessment and Plan 42 y/o female admitted for osteomyelitis and endocarditis. On long-term IV antibiotics per ID recs. <Tip Mayer - 06/04/18 11:16> - Attending Attestation Attending note: Patient seen and examined with resident team 06/04/2018. Agree with evaluation and treatment plan per resident team.. Silvio Ott MD 2018. <Silvio Ott E - 06/04/18 11:31>
[2018-06-04] MEDS: traZODone 50 MG Tablet PO PRN (21:59)
[2018-06-05] MEDS: Morphine Inj 4 MG/ML Vial IV.PUSH PRN ×5 (02:10→22:10)
[2018-06-05] MEDS: ceFAZolin 2 GM Premix Inj 2 GM/50 ML PIGGYBACK IV.SIG SCH ×3 (04:52→21:30)
[2018-06-05] MEDS: Enoxaparin Inj 40 MG/0.4 ML Syringe SQ SCH (09:27)
[2018-06-05] MEDS: Gabapentin 300 MG Capsule PO SCH ×3 (09:27→17:54)
[2018-06-05] MEDS: Senna/Docusate Sodium 8.6/50 MG Tablet PO SCH ×2 (09:27→21:29)
[2018-06-05] MEDS: Methadone 10 MG Tablet PO SCH (09:27)
[2018-06-05] MEDS: Ferrous Sulfate 325 MG Tablet PO SCH (09:27)
--- NOTE | 2018-06-05 11:03 | P.PNFP ---
Subjective Interval history: Interval history: Patient seen and examined today. No acute events overnight. Patient reports some continued minimal soreness in her right hip and occasional swelling in her legs. Reports the compression stocking are helping with edema. No pain in calves. Denies nausea, vomiting, fever, chills, abdominal pain, chest pain, shortness of breath, lightheadedness, dizziness. Able to ambulate with walker. Right hip rash improving. Denies any significant drainage, bleeding, pus. Itchiness present. No other complaints today. <Tip Mayer - 06/05/18 11:03> Results - Labs Result diagrams: 06/03/18 08:37 06/03/18 08:37 <Silvio Ott - 06/05/18 18:01> Physical Exam Vital signs: Vital Signs 06/04/18 20:00 06/05/18 00:00 06/05/18 08:00 Temperature 98.5 F 98.2 F 98.1 F Pulse Rate 87 85 82 Respiratory Rate 19 18 16 Blood Pressure 126/70 126/62 141/78 H Pulse Oximetry 96 96 99 06/05/18 12:00 06/05/18 12:30 06/05/18 16:00 Temperature 97.6 F 98.3 F Pulse Rate 85 88 Respiratory Rate 16 12 16 Blood Pressure 122/61 104/56 L Pulse Oximetry 97 99 06/05/18 17:54 Temperature Pulse Rate Respiratory Rate 16 Blood Pressure Pulse Oximetry Intake & Output 06/04/18 06/05/18 06/05/18 18:59 06:59 18:59 Intake Total 50 / 50 1060 / 1060 50 / 50 Balance 50 / 50 1060 / 1060 50 / 50 Weight 50.9 kg Intake: IV 50 / 50 100 / 100 50 / 50 Ancef 2 GM Premix Inj 2 gm In 50 / 50 100 / 100 50 / 50 50 ml @ 100 mls/hr IV.SIG Q8H RENU Rx#:[id number] Oral 960 / 960 Other: # Voids 4 Date of Last Bowel Movement 06/04/18 06/04/18 # Bowel Movements 1 1 <Silvio Ott - 06/05/18 18:01> Vital Signs 06/04/18 12:00 06/04/18 16:00 06/04/18 17:47 Temperature 97.4 F L 97.7 F Pulse Rate 93 H 82 Respiratory Rate 16 16 14 Blood Pressure 114/60 118/60 Pulse Oximetry 97 99 06/04/18 20:00 06/05/18 00:00 06/05/18 08:00 Temperature 98.5 F 98.2 F 98.1 F Pulse Rate 87 85 82 Respiratory Rate 19 18 16 Blood Pressure 126/70 126/62 141/78 H Pulse Oximetry 96 96 99 Intake & Output 06/04/18 06/05/18 06/05/18 18:59 06:59 18:59 Intake Total 50 / 50 1060 / 1060 Balance 50 / 50 1060 / 1060 Weight 50.9 kg Intake: IV 50 / 50 100 / 100 Ancef 2 GM Premix Inj 2 gm In 50 / 50 100 / 100 50 ml @ 100 mls/hr IV.SIG Q8H RENU Rx#:[id number] Oral 960 / 960 Other: # Voids 4 Date of Last Bowel Movement 06/04/18 06/04/18 # Bowel Movements 1 1 <Henry JaquezTip - 06/05/18 11:03> Narrative: GENERAL: Sitting up in chair, no distress SKIN: Right hip incision site inspected, no swelling, slight drainage of clear fluid, incision without dehiscence. Erythema surrounding incision, however not touching it. Erythema slowly present where tape was touching skin. Rash overall improving. EYES: Pupils equal and round. No scleral icterus. No injection or drainage. CARDIOVASCULAR: Regular rate and rhythm, no murmurs, rubs, or gallops, regular pulses, normal cap refill RESPIRATORY: No accessory muscle use. Clear to auscultation. Breath sounds equal bilaterally. MUSCULOSKELETAL: Extremities without clubbing, cyanosis, or edema. NEUROLOGICAL: Awake and alert. No obvious cranial nerve deficits. Motor grossly within normal limits. PSYCHIATRIC: Appropriate mood and affect; insight and judgment normal. <Henry JaquezTip - 06/05/18 11:03> Assessment and Plan - Assessment (1) Bacterial arthritis of right hip Code(s): M00.851 - Arthritis due to other bacteria, right hip Status: Acute (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 Code(s): I33.0 - Acute and subacute infective endocarditis; B95.8 - Unspecified staphylococcus as the cause of diseases classified elsewhere Status: Acute (3) Stage II pressure ulcer of sacral region Code(s): L89.152 - Pressure ulcer of sacral region, stage 2 Status: Acute (4) Polysubstance abuse Code(s): F19.10 - Other psychoactive substance abuse, uncomplicated Status: Acute (5) Hepatitis C Code(s): B19.20 - Unspecified viral hepatitis C without hepatic coma Status: Acute (6) Anemia Code(s): D64.9 - Anemia, unspecified Status: Acute (7) Cachexia Code(s): R64 - Cachexia Status: Acute (8) Leg swelling Code(s): M79.89 - Other specified soft tissue disorders Status: Acute (9) Contact dermatitis Code(s): L25.9 - Unspecified contact dermatitis, unspecified cause Status: Acute <Silvio Ott - 06/05/18 18:01> (1) Bacterial arthritis of right hip Code(s): M00.851 - Arthritis due to other bacteria, right hip Status: Acute Plan: S/p Right proximal femur resection (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 Incision site closure with eh. Tissue cx from 05/16 negative for growth On IV Ancef (05/14 - ), ID consulted and appreciated: Recommendations She will need Rx for osteomyelitis - at least 6-8 weeks IV Abx. AB to stop July 10 per ID. Incision site dressing changed today. Follow labs while on IV Abx: weekly CBC, creatinine. WNL today. Continue Ancef Follow temps Monitor progress Plan: Con't pain medication regimen: Methadone PO 30 mg daily, wean over long-term Ibuprofen for pain 1-3 [place] 5/325 for pain 4-6 Morphine for severe pain 7-10 Gabapentin 300 mg TID for neuropathic pain PT for early mobilization - OK'd to remove eh by patient's ortho. [place] removed 05/31/16. To follow up outpatient with ortho following discharge. 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 -Will D/C Ab on Jul 10 and transfer to addiction rehab facility. -CM consulted to assist with placement (3) Stage II pressure ulcer of sacral region Code(s): L89.152 - Pressure ulcer of sacral region, stage 2 Status: Acute Plan: Pressure ulcer over sacral region now healing. -physical therapy recommended wheeled walker -Continue to monitor -Continue mobilization with physical therapy (4) Polysubstance abuse Code(s): F19.10 - Other psychoactive substance abuse, uncomplicated Status: Acute Plan: Hx of IVDU (heroin, dilaudid, and other narcotics) and smoker Con't methadone 30 mg daily. Plan to wean in long-term Nicotine patches Case management to help with outpatient placement, preferably [facility] for drug rehab Could also benefit from methadone or Suboxone outpatient (5) Hepatitis C Code(s): B19.20 - Unspecified viral hepatitis C without hepatic coma Status: Acute Plan: Will require outpatient f/u and treatment (6) Anemia Code(s): D64.9 - Anemia, unspecified Status: Acute Plan: Stable Hx of anemia requiring 2 units PRBCs on 05/16 at [facility] Microcytic, likely 2/2 to iron def Continue daily Ferrous sulfate (7) Cachexia Code(s): R64 - Cachexia Status: Acute Plan: -ordered double portions, eating well and gaining weight (8) Leg swelling Code(s): M79.89 - Other specified soft tissue disorders Status: Acute Plan: Ultrasound of the right lower extremity on 05/24/18 was negative for DVT - Using compression stocking to good effect (9) Contact dermatitis Code(s): L25.9 - Unspecified contact dermatitis, unspecified cause Status: Acute Plan: Contact dermatitis likely secondary to tape adhesive. Improving. -Removed dressing 06/04/17, advised on proper cleaning, will continue to monitor <Tip Mayer - 06/05/18 11:01> - Assessment and Plan Attending note: Patient was seen and examined with the resident team on this date 06/05/2018. Agree with evaluation and treatment plan per the resident team. Silvio Ott MD. <Silvio Ott - 06/05/18 18:01> 42 y/o female admitted for osteomyelitis and endocarditis. On long-term IV antibiotics per ID recs. <Tip Mayer - 06/05/18 11:03>
[2018-06-05] MEDS: traZODone 50 MG Tablet PO PRN (22:11)
[2018-06-06] MEDS: Morphine Inj 4 MG/ML Vial IV.PUSH PRN ×5 (04:21→22:47)
[2018-06-06] MEDS: ceFAZolin 2 GM Premix Inj 2 GM/50 ML PIGGYBACK IV.SIG SCH ×3 (05:38→21:20)
[2018-06-06] MEDS: Senna/Docusate Sodium 8.6/50 MG Tablet PO SCH ×2 (09:14→21:20)
[2018-06-06] MEDS: Ferrous Sulfate 325 MG Tablet PO SCH (09:14)
[2018-06-06] MEDS: Gabapentin 300 MG Capsule PO SCH ×3 (09:14→17:28)
[2018-06-06] MEDS: Methadone 10 MG Tablet PO SCH (09:14)
[2018-06-06] MEDS: Enoxaparin Inj 40 MG/0.4 ML Syringe SQ SCH (09:15)
--- NOTE | 2018-06-06 11:04 | P.PNFP ---
Subjective Interval history: Patient seen and examined today. No acute events overnight. Patient reports some continued minimal soreness in her right hip and occasional swelling in her legs. Reports the compression stocking are helping with edema. No pain in calves. Denies nausea, vomiting, fever, chills, abdominal pain, chest pain, shortness of breath, lightheadedness, dizziness. Able to ambulate with walker. Right hip rash improving. Denies any significant drainage, bleeding, pus. Itchiness present. No other complaints today. <Tip Mayer - 06/06/18 11:04> Results - Labs Result diagrams: 06/03/18 08:37 06/03/18 08:37 <Silvio Ott - 06/06/18 14:48> Physical Exam Vital signs: Vital Signs 06/05/18 16:00 06/05/18 17:54 06/05/18 20:00 Temperature 98.3 F 98.6 F Pulse Rate 88 83 Respiratory Rate 16 16 16 Blood Pressure 104/56 L 103/57 L Pulse Oximetry 99 95 06/06/18 00:00 06/06/18 08:00 06/06/18 09:15 Temperature 98.5 F 97.9 F Pulse Rate 68 74 Respiratory Rate 17 19 18 Blood Pressure 95/54 L 112/57 L Pulse Oximetry 95 97 06/06/18 09:44 06/06/18 12:00 Temperature 97.7 F Pulse Rate 80 Respiratory Rate 20 17 Blood Pressure 105/55 L Pulse Oximetry 98 Intake & Output 06/05/18 06/06/18 06/06/18 18:59 06:59 18:59 Intake Total 1450 / 1450 820 / 820 Balance 1450 / 1450 820 / 820 Weight 50.7 kg Intake: IV 50 / 50 100 / 100 Ancef 2 GM Premix Inj 2 gm In 50 / 50 100 / 100 50 ml @ 100 mls/hr IV.SIG Q8H RENU Rx#:[id number] Oral 1400 / 1400 720 / 720 Other: # Voids 3 1 Date of Last Bowel Movement 06/05/18 # Bowel Movements 0 <Silvio Ott - 06/06/18 14:48> Vital Signs 06/05/18 12:00 06/05/18 12:30 06/05/18 16:00 Temperature 97.6 F 98.3 F Pulse Rate 85 88 Respiratory Rate 16 12 16 Blood Pressure 122/61 104/56 L Pulse Oximetry 97 99 06/05/18 17:54 06/05/18 20:00 06/06/18 00:00 Temperature 98.6 F 98.5 F Pulse Rate 83 68 Respiratory Rate 16 16 17 Blood Pressure 103/57 L 95/54 L Pulse Oximetry 95 95 06/06/18 08:00 06/06/18 09:15 06/06/18 09:44 Temperature 97.9 F Pulse Rate 74 Respiratory Rate 19 18 20 Blood Pressure 112/57 L Pulse Oximetry 97 Intake & Output 06/05/18 06/06/18 06/06/18 18:59 06:59 18:59 Intake Total 1450 / 1450 820 / 820 Balance 1450 / 1450 820 / 820 Weight 50.7 kg Intake: IV 50 / 50 100 / 100 Ancef 2 GM Premix Inj 2 gm In 50 / 50 100 / 100 50 ml @ 100 mls/hr IV.SIG Q8H RENU Rx#:[id number] Oral 1400 / 1400 720 / 720 Other: # Voids 3 1 Date of Last Bowel Movement 06/05/18 # Bowel Movements 0 <Henry JaquezTip Gonsales - 06/06/18 11:04> Narrative: GENERAL: Sitting up in chair, no distress SKIN: Right hip incision site inspected, no swelling, slight drainage of clear fluid, incision without dehiscence. Erythema surrounding incision, however not touching it. Erythema slowly present where tape was touching skin. Rash overall improving. EYES: Pupils equal and round. No scleral icterus. No injection or drainage. CARDIOVASCULAR: Regular rate and rhythm, no murmurs, rubs, or gallops, regular pulses, normal cap refill RESPIRATORY: No accessory muscle use. Clear to auscultation. Breath sounds equal bilaterally. MUSCULOSKELETAL: Extremities without clubbing, cyanosis, or edema. NEUROLOGICAL: Awake and alert. No obvious cranial nerve deficits. Motor grossly within normal limits. PSYCHIATRIC: Appropriate mood and affect; insight and judgment normal. <Henry Tip Jaquez - 06/06/18 11:04> Assessment and Plan - Assessment (1) Bacterial arthritis of right hip Code(s): M00.851 - Arthritis due to other bacteria, right hip Status: Acute (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 Code(s): I33.0 - Acute and subacute infective endocarditis; B95.8 - Unspecified staphylococcus as the cause of diseases classified elsewhere Status: Acute (3) Stage II pressure ulcer of sacral region Code(s): L89.152 - Pressure ulcer of sacral region, stage 2 Status: Acute (4) Polysubstance abuse Code(s): F19.10 - Other psychoactive substance abuse, uncomplicated Status: Acute (5) Hepatitis C Code(s): B19.20 - Unspecified viral hepatitis C without hepatic coma Status: Acute (6) Anemia Code(s): D64.9 - Anemia, unspecified Status: Acute (7) Cachexia Code(s): R64 - Cachexia Status: Acute (8) Leg swelling Code(s): M79.89 - Other specified soft tissue disorders Status: Acute (9) Contact dermatitis Code(s): L25.9 - Unspecified contact dermatitis, unspecified cause Status: Acute <Silvio Ott - 06/06/18 14:48> (1) Bacterial arthritis of right hip Code(s): M00.851 - Arthritis due to other bacteria, right hip Status: Acute Plan: S/p Right proximal femur resection (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 Incision site closure with eh. Tissue cx from 05/16 negative for growth On IV Ancef (05/14 - ), ID consulted and appreciated: Recommendations She will need Rx for osteomyelitis - at least 6-8 weeks IV Abx. AB to stop July 10 per ID. Incision site dressing changed today. Follow labs while on IV Abx: weekly CBC, creatinine. WNL today. Continue Ancef Follow temps Monitor progress Plan: Con't pain medication regimen: Methadone PO 30 mg daily, wean over long-term Ibuprofen for pain 1-3 [place] 5/325 for pain 4-6 Morphine for severe pain 7-10 Gabapentin 300 mg TID for neuropathic pain PT for early mobilization - OK'd to remove eh by patient's ortho. [place] removed 05/31/16. To follow up outpatient with ortho following discharge. 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 -Will D/C Ab on Jul 10 and transfer to addiction rehab facility. -CM consulted to assist with placement (3) Stage II pressure ulcer of sacral region Code(s): L89.152 - Pressure ulcer of sacral region, stage 2 Status: Acute Plan: Pressure ulcer over sacral region now healing. -physical therapy recommended wheeled walker -Continue to monitor -Continue mobilization with physical therapy (4) Polysubstance abuse Code(s): F19.10 - Other psychoactive substance abuse, uncomplicated Status: Acute Plan: Hx of IVDU (heroin, dilaudid, and other narcotics) and smoker Con't methadone 30 mg daily. Plan to wean in long-term Nicotine patches Case management to help with outpatient placement, preferably [facility] for drug rehab Could also benefit from methadone or Suboxone outpatient (5) Hepatitis C Code(s): B19.20 - Unspecified viral hepatitis C without hepatic coma Status: Acute Plan: Will require outpatient f/u and treatment (6) Anemia Code(s): D64.9 - Anemia, unspecified Status: Acute Plan: Stable Hx of anemia requiring 2 units PRBCs on 05/16 at [facility] Microcytic, likely 2/2 to iron def Continue daily Ferrous sulfate (7) Cachexia Code(s): R64 - Cachexia Status: Acute Plan: -ordered double portions, eating well and gaining weight (8) Leg swelling Code(s): M79.89 - Other specified soft tissue disorders Status: Acute Plan: Ultrasound of the right lower extremity on 05/24/18 was negative for DVT - Using compression stocking to good effect (9) Contact dermatitis Code(s): L25.9 - Unspecified contact dermatitis, unspecified cause Status: Acute Plan: Contact dermatitis likely secondary to tape adhesive. Improving. -Removed dressing 06/04/17, advised on proper cleaning, will continue to monitor -Cortisone 2.5% BID to assist with pruritis <Tip Mayer - 06/06/18 11:01> - Assessment and Plan Patient seen with the resident medical team this morning 06/06/18. Agree with evaluation and orders for management per the medical team. Silvio Ott MD <Silvio Ott E - 06/06/18 14:48>
[2018-06-06] MEDS: Hydrocortisone 2.5% Cream 30 GM Tube TOPICAL SCH ×2 (13:49→21:23)
[2018-06-06] MEDS: traZODone 50 MG Tablet PO PRN (22:47)
[2018-06-07] MEDS: ceFAZolin 2 GM Premix Inj 2 GM/50 ML PIGGYBACK IV.SIG SCH ×3 (04:40→22:22)
[2018-06-07] MEDS: Morphine Inj 4 MG/ML Vial IV.PUSH PRN ×5 (04:41→22:24)
--- NOTE | 2018-06-07 09:57 | P.PNFP ---
Subjective Interval history: Attending note: Patient seen with medical facilities section director team and nursing staff. Patient reports no acute symptoms overnight, discussed elevated blood pressure and the need to treat. The rash around her right lateral hip wound is less symptomatic with regards to itching. Patient has no other somatic symptoms. Results - Labs Result diagrams: 06/03/18 08:37 06/03/18 08:37 Physical Exam Vital signs: Vital Signs 06/06/18 12:00 06/06/18 16:00 06/06/18 20:00 Temperature 97.7 F 97.9 F 98.0 F Pulse Rate 80 77 97 H Respiratory Rate 17 18 Blood Pressure 105/55 L 97/53 L 171/95 H Pulse Oximetry 98 97 96 06/07/18 00:00 06/07/18 04:00 06/07/18 08:00 Temperature 97.7 F 97.6 F 98.1 F Pulse Rate 101 H 99 H 104 H Respiratory Rate 18 18 18 Blood Pressure 163/76 H 159/95 H 162/94 H Pulse Oximetry 100 99 99 Intake & Output 06/06/18 06/07/18 06/07/18 18:59 06:59 18:59 Intake Total 770 / 770 100 / 100 Output Total 6 / 6 Balance 764 / 764 100 / 100 Weight 49.4 kg Intake: IV 50 / 50 100 / 100 Ancef 2 GM Premix Inj 2 gm In 50 / 50 100 / 100 50 ml @ 100 mls/hr IV.SIG Q8H RENU Rx#:[id number] Oral 720 / 720 Output: Urine 6 / 6 Other: # Voids 1 3 Date of Last Bowel Movement 06/05/18 # Bowel Movements 0 Narrative: Vital signs noted, blood pressure of concern, currently 162/94 pulse 100/min respirations 18 temperature 98.1. General appearance: Middle-aged woman resting comfortably, is able to maneuver in bed status post the Girdlestone procedure. HEENT: Nonlocalizing. Lungs: Clear to auscultation. Cardiac: S1-S2, no significant murmurs. No clicks. Abdomen: Soft and benign Extremities: Inspection of the right lateral hip wound reveals that it is clear , the erythematous papules and macules are defervescent. Feet are warm and dry, calves supple. 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 Incision site closure with eh. Tissue cx from 05/16 negative for growth On IV Ancef (05/14 - ), ID consulted and appreciated: Recommendations She will need Rx for osteomyelitis - at least 6-8 weeks IV Abx. AB to stop July 10 per ID. Incision site dressing changed today. Follow labs while on IV Abx: weekly CBC, creatinine. WNL today. Continue Ancef Follow temps Monitor progress Plan: Con't pain medication regimen: Methadone PO 30 mg daily, wean over long-term Ibuprofen for pain 1-3 [place] 5/325 for pain 4-6 Morphine for severe pain 7-10 Gabapentin 300 mg TID for neuropathic pain PT for early mobilization - OK'd to remove eh by patient's ortho. [place] removed 05/31/16. To follow up outpatient with ortho following discharge. 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 -Will D/C Ab on Jul 10 and transfer to addiction rehab facility. -CM consulted to assist with placement (3) Stage II pressure ulcer of sacral region Code(s): L89.152 - Pressure ulcer of sacral region, stage 2 Status: Acute Plan: Pressure ulcer over sacral region now healing. -physical therapy recommended wheeled walker -Continue to monitor -Continue mobilization with physical therapy (4) Polysubstance abuse Code(s): F19.10 - Other psychoactive substance abuse, uncomplicated Status: Acute Plan: Hx of IVDU (heroin, dilaudid, and other narcotics) and smoker Con't methadone 30 mg daily. Plan to wean in long-term Nicotine patches Case management to help with outpatient placement, preferably [facility] for drug re[facility] Could also benefit from methadone or Suboxone outpatient (5) Hepatitis C Code(s): B19.20 - Unspecified viral hepatitis C without hepatic coma Status: Acute Plan: Will require outpatient f/u and treatment (6) Anemia Code(s): D64.9 - Anemia, unspecified Status: Acute Plan: Stable Hx of anemia requiring 2 units PRBCs on 05/16 at [facility] Microcytic, likely 2/2 to iron def Continue daily Ferrous sulfate (7) Cachexia Code(s): R64 - Cachexia Status: Acute Plan: -ordered double portions, eating well and gaining weight (8) Leg swelling Code(s): M79.89 - Other specified soft tissue disorders Status: Acute Plan: Ultrasound of the right lower extremity on 05/24/18 was negative for DVT - Using compression stocking to good effect (9) Contact dermatitis Code(s): L25.9 - Unspecified contact dermatitis, unspecified cause Status: Acute Plan: Contact dermatitis likely secondary to tape adhesive. Improving. -Removed dressing 06/04/17, advised on proper cleaning, will continue to monitor -Cortisone 2.5% BID to assist with pruritis - Assessment and Plan Patient seen with the resident medical team this morning 06/06/18. Agree with evaluation and orders for management per the medical team. Silvio Ott MD Clinical assessment 06/07/2018: Patient continues on IV antibiotic treatment with Ancef for endocarditis secondary to Staphylococcus. Status post Girdlestone procedure right hip, new onset of elevated blood pressure. Contact dermatitis resolving. Case discussed with medical facilities section director team, orders as written by the medical facilities section director team. Periodic labs.
[2018-06-07] MEDS: Hydrocortisone 2.5% Cream 30 GM Tube TOPICAL SCH ×2 (10:04→22:23)
[2018-06-07] MEDS: Ferrous Sulfate 325 MG Tablet PO SCH (10:04)
[2018-06-07] MEDS: Methadone 10 MG Tablet PO SCH (10:04)
[2018-06-07] MEDS: Senna/Docusate Sodium 8.6/50 MG Tablet PO SCH ×2 (10:04→22:24)
[2018-06-07] MEDS: Gabapentin 300 MG Capsule PO SCH ×3 (10:04→18:02)
[2018-06-07] MEDS: Enoxaparin Inj 40 MG/0.4 ML Syringe SQ SCH (10:05)
[2018-06-08] MEDS: traZODone 50 MG Tablet PO PRN (00:41)
[2018-06-08] MEDS: ceFAZolin 2 GM Premix Inj 2 GM/50 ML PIGGYBACK IV.SIG SCH ×3 (04:30→21:10)
[2018-06-08] MEDS: Morphine Inj 4 MG/ML Vial IV.PUSH PRN ×4 (04:30→21:11)
[2018-06-08 07:14] LABS: Baso # (Auto) 0.1 th/mm3 (0.0-0.2); Baso % (Auto) 1.1 % (0.0-2.0); Eos # (Auto) 0.2 th/mm3 (0.0-0.4); Eos % (Auto) 2.9 % (0.0-4.0); Hematocrit 34.7 % (35.0-46.0); Hemoglobin 10.7 gm/dL (11.6-15.3); Lymph # (Auto) 1.5 th/mm3 (1.0-4.8); Lymph % (Auto) 27.9 % (9.0-44.0); Mean Corpuscular Hemoglobin 23.2 pg (27.0-34.0); Mean Corpuscular Volume 74.9 fL (80.0-100.0); Mean Platelet Volume 7.7 fL (7.0-11.0); Mono # (Auto) 0.6 th/mm3 (0.0-0.9); Mono % (Auto) 11.6 % (0.0-8.0); Neut # (Auto) 3.1 th/mm3 (1.8-7.7); Neut % (Auto) 56.5 % (16.0-70.0); Platelet Count 296 th/mm3 (150-450); Red Blood Count 4.63 mil/mm3 (4.00-5.30); Red Cell Distribution Width 26.4 % (11.6-17.2); White Blood Count 5.5 th/mm3 (4.0-11.0)
[2018-06-08 07:25] LABS: Anion Gap 8 meq/L (5-15); Blood Urea Nitrogen 20 mg/dL (7-18); Calcium 9.6 mg/dL (8.5-10.1); Carbon Dioxide 28.3 meq/L (21.0-32.0); Chloride 101 meq/L (98-107); Glomerular Filtration Rate Greater Than 89 mL/min (>89); Glucose,Random 94 mg/dL (74-106); Potassium 3.8 meq/L (3.5-5.1); Sodium 137 meq/L (136-145)
[2018-06-08 07:29] LABS: Mean Corpuscular HGB Conc 30.9 % (32.0-36.0)
[2018-06-08] MEDS ORDERED: Lisinopril 5 MG Tablet PO SCH (09:00)
[2018-06-08 09:25] LABS: Dimorphic RBC Present
[2018-06-08] MEDS: Methadone 10 MG Tablet PO SCH (09:57)
[2018-06-08] MEDS: Ferrous Sulfate 325 MG Tablet PO SCH (09:57)
[2018-06-08] MEDS: Enoxaparin Inj 40 MG/0.4 ML Syringe SQ SCH (09:58)
[2018-06-08] MEDS: Senna/Docusate Sodium 8.6/50 MG Tablet PO SCH ×2 (09:58→21:11)
[2018-06-08] MEDS: Gabapentin 300 MG Capsule PO SCH ×3 (09:58→18:49)
[2018-06-08] MEDS ORDERED: Atenolol 50 MG Tablet PO SCH (10:00)
[2018-06-08] MEDS: Hydrocortisone 2.5% Cream 30 GM Tube TOPICAL SCH ×2 (10:01→21:10)
--- NOTE | 2018-06-08 10:04 | P.PNFP ---
Subjective Interval history: Patient seen and examined today. No acute events overnight. Patient reports some continued minimal soreness in her right hip and occasional swelling in her legs. No pain in calves. Denies nausea, vomiting, fever, chills, abdominal pain , chest pain, shortness of breath, lightheadedness, dizziness. Able to ambulate with walker. Right hip rash improving. Denies any significant drainage, bleeding, pus. No other complaints today. Results - Labs Result diagrams: 06/08/18 06:50 06/08/18 06:50 Abnormal lab results 06/08/18 06/08/18 Range/Units 06:50 06:50 Hgb 10.7 L (11.6-15.3) gm/dL Hct 34.7 L (35.0-46.0) % MCV 74.9 L (80.0-100.0) fL MCH 23.2 L (27.0-34.0) pg MCHC 30.9 L (32.0-36.0) % RDW 26.4 H (11.6-17.2) % Weber % (Auto) 11.6 H (0.0-8.0) % Dimorphic RBCs Present H (None) BUN 20 H (7-18) mg/dL Short CBC 06/08/18 Range/Units 06:50 WBC 5.5 (4.0-11.0) th/mm3 Hgb 10.7 L (11.6-15.3) gm/dL Hct 34.7 L (35.0-46.0) % Plt Count 296 (150-450) th/mm3 BMP 06/08/18 06:50 Sodium 137 Potassium 3.8 Chloride 101 Carbon Dioxide 28.3 BUN 20 H Creatinine 0.64 Calcium 9.6 Physical Exam Vital signs: Vital Signs 06/07/18 12:00 06/07/18 16:00 06/07/18 20:00 Temperature 97.6 F 97.6 F 98.2 F Pulse Rate 103 H 89 103 H Respiratory Rate 19 18 18 Blood Pressure 165/104 H 176/102 H 143/90 H Pulse Oximetry 100 99 99 06/08/18 08:00 Temperature 98.0 F Pulse Rate 84 Respiratory Rate 16 Blood Pressure 120/74 Pulse Oximetry 92 L Intake & Output 01/19/19 01/20/19 01/20/19 18:59 06:59 18:59 Intake Total 50 / 50 320 / 320 Balance 50 / 50 320 / 320 Weight 50.5 kg Intake: IV 50 / 50 100 / 100 Ancef 2 GM Premix Inj 2 gm In 50 / 50 100 / 100 50 ml @ 100 mls/hr IV.SIG Q8H RENU Rx#:[id number] Oral 220 / 220 Other: # Voids 3 Date of Last Bowel Movement 06/06/18 Narrative: Narrative: GENERAL: Laying in bed, no distress SKIN: Right hip incision site inspected, no swelling, slight drainage of clear fluid, incision without dehiscence. Erythema surrounding incision, however not touching it. Erythema slowly present where tape was touching skin. Rash overall improving. EYES: Pupils equal and round. No scleral icterus. No injection or drainage. CARDIOVASCULAR: Regular rate and rhythm, no murmurs, rubs, or gallops, regular pulses, normal cap refill RESPIRATORY: No accessory muscle use. Clear to auscultation. Breath sounds equal bilaterally. MUSCULOSKELETAL: Extremities without clubbing, cyanosis, or edema. NEUROLOGICAL: Awake and alert. No obvious cranial nerve deficits. Motor grossly within normal limits. PSYCHIATRIC: Appropriate mood and affect; insight and judgment normal. 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 Incision site closure with eh. Tissue cx from 05/16 negative for growth On IV Ancef (05/14 - ), ID consulted and appreciated: Recommendations She will need Rx for osteomyelitis - at least 6-8 weeks IV Abx. AB to stop July 10 per ID. Incision site dressing changed today. Follow labs while on IV Abx: weekly CBC, creatinine. WNL today. Continue Ancef Follow temps Monitor progress Plan: Con't pain medication regimen: Methadone PO 30 mg daily, wean over long-term Ibuprofen for pain 1-3 [place] 5/325 for pain 4-6 Morphine for severe pain 7-10 Gabapentin 300 mg TID for neuropathic pain PT for early mobilization - OK'd to remove eh by patient's ortho. [place] removed 05/31/16. To follow up outpatient with ortho following discharge. 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 -Will D/C Ab on Jul 10 and transfer to addiction rehab facility. -CM consulted to assist with placement (3) Stage II pressure ulcer of sacral region Code(s): L89.152 - Pressure ulcer of sacral region, stage 2 Status: Acute Plan: Pressure ulcer over sacral region now healing. -physical therapy recommended wheeled walker -Continue to monitor -Continue mobilization with physical therapy (4) Polysubstance abuse Code(s): F19.10 - Other psychoactive substance abuse, uncomplicated Status: Acute Plan: Hx of IVDU (heroin, dilaudid, and other narcotics) and smoker Con't methadone 30 mg daily. Plan to wean in long-term Nicotine patches Case management to help with outpatient placement, preferably [facility] for drug rehab Could also benefit from methadone or Suboxone outpatient (5) Hepatitis C Code(s): B19.20 - Unspecified viral hepatitis C without hepatic coma Status: Acute Plan: Will require outpatient f/u and treatment (6) Anemia Code(s): D64.9 - Anemia, unspecified Status: Acute Plan: Stable Hx of anemia requiring 2 units PRBCs on 05/16 at [facility] Microcytic, likely 2/2 to iron def Continue daily Ferrous sulfate (7) Cachexia Code(s): R64 - Cachexia Status: Acute Plan: -ordered double portions, eating well and gaining weight (8) Leg swelling Code(s): M79.89 - Other specified soft tissue disorders Status: Acute Plan: Ultrasound of the right lower extremity on 05/24/18 was negative for DVT - Using compression stocking to good effect (9) Contact dermatitis Code(s): L25.9 - Unspecified contact dermatitis, unspecified cause Status: Acute Plan: Contact dermatitis likely secondary to tape adhesive. Improving. -Removed dressing 06/04/17, advised on proper cleaning, will continue to monitor -Cortisone 2.5% BID to assist with pruritis
--- NOTE | 2018-06-08 13:08 | ECG ---
Date Performed: 06/08/2018 Time Performed: 10:10:00 PTAGE: 42 years EKG: Sinus rhythm VOLTAGE CRITERIA FOR LVH ABNORMAL ECG PREVIOUS TRACING : 05/10/2018 20.12 Since the previous tracing, no significant change noted DOCTOR: Chester Eaton Interpretating Date/Time 06/08/2018 13:06:27
[2018-06-08] MEDS ORDERED: Sod Chloride 0.9% Inj 1,000 ML IV.SIG SCH (17:18)
[2018-06-09] MEDS: traZODone 50 MG Tablet PO PRN ×2 (02:14→21:18)
[2018-06-09] MEDS: Morphine Inj 4 MG/ML Vial IV.PUSH PRN (02:14)
[2018-06-09] MEDS: ceFAZolin 2 GM Premix Inj 2 GM/50 ML PIGGYBACK IV.SIG SCH ×3 (04:28→21:13)
[2018-06-09] MEDS: Enoxaparin Inj 40 MG/0.4 ML Syringe SQ SCH (09:46)
[2018-06-09] MEDS: Methadone 10 MG Tablet PO SCH (09:46)
[2018-06-09] MEDS: Gabapentin 300 MG Capsule PO SCH ×3 (09:47→18:03)
[2018-06-09] MEDS: Hydrocortisone 2.5% Cream 30 GM Tube TOPICAL SCH ×2 (09:47→21:15)
[2018-06-09] MEDS: Senna/Docusate Sodium 8.6/50 MG Tablet PO SCH ×2 (09:47→21:12)
[2018-06-09] MEDS: Ferrous Sulfate 325 MG Tablet PO SCH (09:47)
--- NOTE | 2018-06-09 10:58 | P.PNFP ---
Subjective Interval history: Patient seen and examined this morning. No acute events overnight. Denies any new complaints or concerns today. Blood pressure did run low overnight, held her blood pressure medications. Requesting breakthrough morphine medication this morning as well. Denies any new fever or chills, headache, nausea or vomiting, chest pain, shortness of breath. <Gemmarcus HessDelonte Altamirano - 06/09/18 10:58> Results - Labs Result diagrams: 06/08/18 06:50 06/08/18 06:50 <Silvio Ott - 06/09/18 12:10> Physical Exam Vital signs: Vital Signs 06/08/18 15:50 06/08/18 16:00 06/08/18 18:50 Temperature 97.6 F Pulse Rate 78 80 87 Respiratory Rate 16 18 Blood Pressure 96/51 L 93/53 L 101/59 L Pulse Oximetry 98 06/08/18 20:00 06/09/18 00:00 06/09/18 08:00 Temperature 97.8 F 97.5 F L 97.8 F Pulse Rate 79 83 80 Respiratory Rate 18 18 16 Blood Pressure 114/60 128/71 98/50 L Pulse Oximetry 98 97 97 Intake & Output 06/08/18 06/09/18 06/09/18 18:59 06:59 18:59 Intake Total 1050 / 1050 420 / 420 Balance 1050 / 1050 420 / 420 Weight 50.5 kg Intake: IV 1050 / 1050 100 / 100 NS Inj 1,000 ML @ 1000 mls/hr 1000 / 1000 IV.SIG BOLUS R[facility] Rx#:[id number] Ancef 2 GM Premix Inj 2 gm In 50 / 50 100 / 100 50 ml @ 100 mls/hr IV.SIG Q8H [facility] Rx#:[id number] Oral 320 / 320 Other: # Voids 3 Date of Last Bowel Movement 06/06/18 <Silvio Ott - 06/09/18 12:10> Vital Signs 06/08/18 12:00 06/08/18 15:50 06/08/18 16:00 Temperature 97.6 F 97.6 F Pulse Rate 75 78 80 Respiratory Rate 19 16 18 Blood Pressure 92/50 L 96/51 L 93/53 L Pulse Oximetry 99 98 06/08/18 18:50 06/08/18 20:00 06/09/18 00:00 Temperature 97.8 F 97.5 F L Pulse Rate 87 79 83 Respiratory Rate 18 18 Blood Pressure 101/59 L 114/60 128/71 Pulse Oximetry 98 97 06/09/18 08:00 Temperature 97.8 F Pulse Rate 80 Respiratory Rate 16 Blood Pressure 98/50 L Pulse Oximetry 97 Intake & Output 06/08/18 06/09/18 06/09/18 18:59 06:59 18:59 Intake Total 1050 / 1050 420 / 420 Balance 1050 / 1050 420 / 420 Weight 50.5 kg Intake: IV 1050 / 1050 100 / 100 NS Inj 1,000 ML @ 1000 mls/hr 1000 / 1000 IV.SIG BOLUS RENU Rx#:[id number] Ancef 2 GM Premix Inj 2 gm In 50 / 50 100 / 100 50 ml @ 100 mls/hr IV.SIG Q8H [facility] Rx#:[id number] Oral 320 / 320 Other: # Voids 3 <Stefani HessDelonte Evelia 06/09/18 10:58> Narrative: Narrative: GENERAL: Laying in bed, no distress SKIN: Right hip incision site inspected, no swelling, incision without dehiscence. Erythema improved where tape was touching skin. Rash overall improving. EYES: Pupils equal and round. No scleral icterus. No injection or drainage. CARDIOVASCULAR: Regular rate and rhythm, no murmurs, rubs, or gallops, regular pulses, normal cap refill RESPIRATORY: No accessory muscle use. Clear to auscultation. Breath sounds equal bilaterally. NEUROLOGICAL: Awake and alert. No obvious cranial nerve deficits. Motor grossly within normal limits. PSYCHIATRIC: Appropriate mood and affect; insight and judgment normal. <Stefani HessDelonte Evelia - 06/09/18 10:58> Assessment and Plan - Assessment (1) Bacterial arthritis of right hip Code(s): M00.851 - Arthritis due to other bacteria, right hip Status: Acute (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 Code(s): I33.0 - Acute and subacute infective endocarditis; B95.8 - Unspecified staphylococcus as the cause of diseases classified elsewhere Status: Acute (3) Hypotension Code(s): I95.9 - Hypotension, unspecified Status: Acute (4) Stage II pressure ulcer of sacral region Code(s): L89.152 - Pressure ulcer of sacral region, stage 2 Status: Acute (5) Polysubstance abuse Code(s): F19.10 - Other psychoactive substance abuse, uncomplicated Status: Acute (6) Hepatitis C Code(s): B19.20 - Unspecified viral hepatitis C without hepatic coma Status: Acute (7) Anemia Code(s): D64.9 - Anemia, unspecified Status: Acute (8) Cachexia Code(s): R64 - Cachexia Status: Acute (9) Leg swelling Code(s): M79.89 - Other specified soft tissue disorders Status: Acute (10) Contact dermatitis Code(s): L25.9 - Unspecified contact dermatitis, unspecified cause Status: Acute <OttSilvio santo - 06/09/18 12:10> (1) Bacterial arthritis of right hip Code(s): M00.851 - Arthritis due to other bacteria, right hip Status: Acute Plan: S/p Right proximal femur resection (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 Incision site closure with eh. Tissue cx from 05/16 negative for growth On IV Ancef (05/14 - ), ID consulted and appreciated: Recommendations She will need Rx for osteomyelitis - at least 6-8 weeks IV Abx. AB to stop July 10 per ID. Incision site dressing changed today. Follow labs while on IV Abx: weekly CBC, creatinine. WNL today. Continue Ancef Follow temps Monitor progress Plan: Con't pain medication regimen: Methadone PO 30 mg daily, wean over long-term Ibuprofen for pain 1-3 [place] 5/325 for pain 4-6 Morphine for severe pain 7-10, will decrease to 2mg to prevent possible cause of hypotension Gabapentin 300 mg TID for neuropathic pain PT for early mobilization - OK'd to remove eh by patient's ortho. [place] removed 05/31/16. To follow up outpatient with ortho following discharge. 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 -Will D/C Ab on Jul 10 and transfer to addiction rehab facility. -CM consulted to assist with placement (3) Hypotension Code(s): I95.9 - Hypotension, unspecified Status: Acute Plan: Initially started on atenolol for BP, running low recently -Hold BP meds -Decrease morphine dose -Monitor BP (4) Stage II pressure ulcer of sacral region Code(s): L89.152 - Pressure ulcer of sacral region, stage 2 Status: Acute Plan: Pressure ulcer over sacral region now healing. -physical therapy recommended wheeled walker -Continue to monitor -Continue mobilization with physical therapy (5) Polysubstance abuse Code(s): F19.10 - Other psychoactive substance abuse, uncomplicated Status: Acute Plan: Hx of IVDU (heroin, dilaudid, and other narcotics) and smoker Con't methadone 30 mg daily. Plan to wean in long-term Nicotine patches Case management to help with outpatient placement, preferably [facility] for drug rehab Could also benefit from methadone or Suboxone outpatient (6) Hepatitis C Code(s): B19.20 - Unspecified viral hepatitis C without hepatic coma Status: Acute Plan: Will require outpatient f/u and treatment (7) Anemia Code(s): D64.9 - Anemia, unspecified Status: Acute Plan: Stable Hx of anemia requiring 2 units PRBCs on 05/16 at [facility] Microcytic, likely 2/2 to iron def Continue daily Ferrous sulfate (8) Cachexia Code(s): R64 - Cachexia Status: Acute Plan: -ordered double portions, eating well and gaining weight (9) Leg swelling Code(s): M79.89 - Other specified soft tissue disorders Status: Acute Plan: Ultrasound of the right lower extremity on 05/24/18 was negative for DVT - Using compression stocking to good effect (10) Contact dermatitis Code(s): L25.9 - Unspecified contact dermatitis, unspecified cause Status: Acute Plan: Contact dermatitis likely secondary to tape adhesive. Improving. -Removed dressing 06/04/17, advised on proper cleaning, will continue to monitor -Cortisone 2.5% BID to assist with pruritis <Delonte Griggs - 06/09/18 10:53> - Assessment and Plan Medicine attending note 06/09/2018: Patient was seen and examined with resident team SPECT that the hypotension was secondary to morphine, patient's pulse did not significantly decreased with the atenolol however there will be cautioned regarding blood pressure going forward. Case discussed with resident team and agree with medical orders as written. Silvio Ott MD. <Silvio Ott E - 06/09/18 12:10>
[2018-06-09] MEDS: Morphine Sulfate Inj 2 MG/ML Vial IV.PUSH PRN ×2 (13:06→21:18)
[2018-06-10] MEDS: ceFAZolin 2 GM Premix Inj 2 GM/50 ML PIGGYBACK IV.SIG SCH ×3 (05:59→21:02)
[2018-06-10] MEDS: Morphine Sulfate Inj 2 MG/ML Vial IV.PUSH PRN ×4 (06:17→22:00)
[2018-06-10] MEDS: Methadone 10 MG Tablet PO SCH (10:00)
[2018-06-10] MEDS: Gabapentin 300 MG Capsule PO SCH ×3 (10:00→17:53)
[2018-06-10] MEDS: Ferrous Sulfate 325 MG Tablet PO SCH (10:01)
[2018-06-10] MEDS: Enoxaparin Inj 40 MG/0.4 ML Syringe SQ SCH (10:02)
[2018-06-10] MEDS: Senna/Docusate Sodium 8.6/50 MG Tablet PO SCH ×2 (10:02→21:02)
[2018-06-10] MEDS: Hydrocortisone 2.5% Cream 30 GM Tube TOPICAL SCH ×2 (10:22→21:03)
--- NOTE | 2018-06-10 10:48 | P.PNFP ---
Subjective Interval history: Patient seen and examined at bedside this morning. She has no complaints overnight. While rounding on the patient, another male patient came to the door and quickly left when he saw the team rounding. When inquired about who he was, Ana Laura stated that they were friends from [place] [address] Emphasized to patient the importance of not speaking to other patient's on the floor. Patient voiced understanding. All questions were answered at bedside. She denies any chest pain, shortness of breath, problems with urination or defecation, abdominal pain. Results - Labs Result diagrams: 06/08/18 06:50 06/08/18 06:50 Physical Exam Vital signs: Vital Signs 06/09/18 12:00 06/09/18 16:00 06/09/18 21:06 Temperature 97.3 F L 97.2 F L 97.4 F L Pulse Rate 86 88 90 Respiratory Rate 16 16 21 Blood Pressure 107/57 L 90/55 L 105/64 Pulse Oximetry 99 100 100 06/10/18 00:00 06/10/18 04:00 06/10/18 08:00 Temperature 97.6 F 97.9 F 98.2 F Pulse Rate 77 79 76 Respiratory Rate 17 18 16 Blood Pressure 106/66 113/68 97/56 L Pulse Oximetry 98 99 98 Intake & Output 06/09/18 06/10/18 06/10/18 18:59 06:59 18:59 Intake Total 50 / 50 100 / 100 Balance 50 / 50 100 / 100 Intake: IV 50 / 50 100 / 100 Ancef 2 GM Premix Inj 2 gm In 50 / 50 100 / 100 50 ml @ 100 mls/hr IV.SIG Q8H [facility] Rx#:[id number] Other: # Voids 1 Date of Last Bowel Movement 06/06/18 06/09/18 Narrative: Narrative: GENERAL: Laying in bed, no distress SKIN: Right hip incision site inspected, no swelling, incision without dehiscence. Erythema improved where tape was touching skin. Rash overall improving. EYES: Pupils equal and round. No scleral icterus. No injection or drainage. CARDIOVASCULAR: Regular rate and rhythm, no murmurs, rubs, or gallops, regular pulses, normal cap refill RESPIRATORY: No accessory muscle use. Clear to auscultation. Breath sounds equal bilaterally. NEUROLOGICAL: Awake and alert. No obvious cranial nerve deficits. Motor grossly within normal limits. PSYCHIATRIC: Appropriate mood and affect; insight and judgment normal. 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 Incision site closure with eh. Tissue cx from 05/16 negative for growth On IV Ancef (05/14 - ), ID consulted and appreciated: Recommendations She will need Rx for osteomyelitis - at least 6-8 weeks IV Abx. AB to stop July 10 per ID. Incision site dressing changed today. Follow labs while on IV Abx: weekly CBC, creatinine. WNL today. Continue Ancef Follow temps Monitor progress Plan: Con't pain medication regimen: Methadone PO 30 mg daily, wean over long-term Ibuprofen for pain 1-3 [place] 5/325 for pain 4-6 Morphine for severe pain 7-10, will decrease to 2mg to prevent possible cause of hypotension Gabapentin 300 mg TID for neuropathic pain PT for early mobilization - OK'd to remove eh by patient's ortho. [place] removed 05/31/16. To follow up outpatient with ortho following discharge. 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 -Will D/C Ab on Jul 10 and transfer to addiction rehab facility. -CM consulted to assist with placement (3) Hypotension Code(s): I95.9 - Hypotension, unspecified Status: Acute Plan: Initially started on atenolol for BP, running low recently -Hold BP meds -Decrease morphine dose -Monitor BP (4) Stage II pressure ulcer of sacral region Code(s): L89.152 - Pressure ulcer of sacral region, stage 2 Status: Acute Plan: Pressure ulcer over sacral region now healing. -physical therapy recommended wheeled walker -Continue to monitor -Continue mobilization with physical therapy (5) Polysubstance abuse Code(s): F19.10 - Other psychoactive substance abuse, uncomplicated Status: Acute Plan: Hx of IVDU (heroin, dilaudid, and other narcotics) and smoker Con't methadone 30 mg daily. Plan to wean in long-term Nicotine patches Case management to help with outpatient placement, preferably [facility] drug re[facility] Could also benefit from methadone or Suboxone outpatient (6) Hepatitis C Code(s): B19.20 - Unspecified viral hepatitis C without hepatic coma Status: Acute Plan: Will require outpatient f/u and treatment (7) Anemia Code(s): D64.9 - Anemia, unspecified Status: Acute Plan: Stable Hx of anemia requiring 2 units PRBCs on 05/16 at [facility] Microcytic, likely 2/2 to iron def Continue daily Ferrous sulfate (8) Cachexia Code(s): R64 - Cachexia Status: Acute Plan: -ordered double portions, eating well and gaining weight (9) Leg swelling Code(s): M79.89 - Other specified soft tissue disorders Status: Acute Plan: Ultrasound of the right lower extremity on 05/24/18 was negative for DVT - Using compression stocking to good effect (10) Contact dermatitis Code(s): L25.9 - Unspecified contact dermatitis, unspecified cause Status: Acute Plan: Contact dermatitis likely secondary to tape adhesive. Improving. -Removed dressing 06/04/17, advised on proper cleaning, will continue to monitor -Cortisone 2.5% BID to assist with pruritis - Assessment and Plan Medicine attending note 06/09/2018: Patient was seen and examined with resident team SPECT that the hypotension was secondary to morphine, patient's pulse did not significantly decreased with the atenolol however there will be cautioned regarding blood pressure going forward. Case discussed with resident team and agree with medical orders as written. Silvio Ott MD.
[2018-06-10] MEDS: traZODone 50 MG Tablet PO PRN (21:02)
[2018-06-11] MEDS: Morphine Sulfate Inj 2 MG/ML Vial IV.PUSH PRN ×4 (03:33→18:35)
[2018-06-11] MEDS: ceFAZolin 2 GM Premix Inj 2 GM/50 ML PIGGYBACK IV.SIG SCH ×3 (05:58→21:57)
[2018-06-11] MEDS: Methadone 10 MG Tablet PO SCH (09:48)
[2018-06-11] MEDS: Enoxaparin Inj 40 MG/0.4 ML Syringe SQ SCH (09:49)
[2018-06-11] MEDS: Ferrous Sulfate 325 MG Tablet PO SCH (09:49)
[2018-06-11] MEDS: Senna/Docusate Sodium 8.6/50 MG Tablet PO SCH ×2 (09:49→21:57)
[2018-06-11] MEDS: Gabapentin 300 MG Capsule PO SCH ×3 (09:49→18:34)
[2018-06-11] MEDS: Hydrocortisone 2.5% Cream 30 GM Tube TOPICAL SCH ×2 (09:51→21:57)
--- NOTE | 2018-06-11 10:55 | P.PNFP ---
Subjective Interval history: Patient seen and examined at bedside this morning. Laying comfortably in bed. No acute events overnight per nursing. She is working with physical therapy. She denies any chest pain, abdominal pain, problems with urination or defecation, leg pain. All questions were answered at bedside. <Katelyn Reyes - 06/11/18 11:40> Results - Labs Result diagrams: 06/08/18 06:50 06/08/18 06:50 <Katelyn Reyes - 06/11/18 10:55> Physical Exam Vital signs: Vital Signs 06/10/18 12:00 06/10/18 20:00 06/11/18 00:00 Temperature 97.7 F 98.1 F 98.2 F Pulse Rate 89 89 81 Respiratory Rate 17 18 18 Blood Pressure 109/73 114/59 L 103/52 L Pulse Oximetry 99 97 96 06/11/18 08:00 Temperature 97.4 F L Pulse Rate 65 Respiratory Rate 18 Blood Pressure 106/58 L Pulse Oximetry 98 Intake & Output 06/10/18 06/11/18 06/11/18 18:59 06:59 18:59 Intake Total 50 / 50 100 / 100 Balance 50 / 50 100 / 100 Weight 51.2 kg Intake: IV 50 / 50 100 / 100 Ancef 2 GM Premix Inj 2 gm In 50 / 50 100 / 100 50 ml @ 100 mls/hr IV.SIG Q8H [facility] Rx#:[id number] Other: # Voids 2 1 Date of Last Bowel Movement 06/09/18 06/10/18 <Silvio Ott - 06/11/18 11:19> Vital Signs 06/10/18 12:00 06/10/18 20:00 06/11/18 00:00 Temperature 97.7 F 98.1 F 98.2 F Pulse Rate 89 89 81 Respiratory Rate 17 18 18 Blood Pressure 109/73 114/59 L 103/52 L Pulse Oximetry 99 97 96 06/11/18 08:00 Temperature 97.4 F L Pulse Rate 65 Respiratory Rate 18 Blood Pressure 106/58 L Pulse Oximetry 98 Intake & Output 06/10/18 06/11/18 06/11/18 18:59 06:59 18:59 Intake Total 50 / 50 100 / 100 Balance 50 / 50 100 / 100 Weight 51.2 kg Intake: IV 50 / 50 100 / 100 Ancef 2 GM Premix Inj 2 gm In 50 / 50 100 / 100 50 ml @ 100 mls/hr IV.SIG Q8H [facility] Rx#:[id number] Other: # Voids 2 1 Date of Last Bowel Movement 06/09/18 06/10/18 <Katelyn Reyes - 06/11/18 10:55> Narrative: Narrative: GENERAL: Laying in bed, no distress SKIN: Right hip incision site inspected, no swelling, incision without dehiscence. Erythema improved where tape was touching skin. Rash overall improving. EYES: Pupils equal and round. No scleral icterus. No injection or drainage. CARDIOVASCULAR: Regular rate and rhythm, no murmurs, rubs, or gallops, regular pulses, normal cap refill RESPIRATORY: No accessory muscle use. Clear to auscultation. Breath sounds equal bilaterally. NEUROLOGICAL: Awake and alert. No obvious cranial nerve deficits. Motor grossly within normal limits. PSYCHIATRIC: Appropriate mood and affect; insight and judgment normal. <Katelyn Reyes - 06/11/18 11:40> Assessment and Plan - Assessment (1) Bacterial arthritis of right hip Code(s): M00.851 - Arthritis due to other bacteria, right hip Status: Acute (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 Code(s): I33.0 - Acute and subacute infective endocarditis; B95.8 - Unspecified staphylococcus as the cause of diseases classified elsewhere Status: Acute (3) Hypotension Code(s): I95.9 - Hypotension, unspecified Status: Acute (4) Stage II pressure ulcer of sacral region Code(s): L89.152 - Pressure ulcer of sacral region, stage 2 Status: Acute (5) Polysubstance abuse Code(s): F19.10 - Other psychoactive substance abuse, uncomplicated Status: Acute (6) Hepatitis C Code(s): B19.20 - Unspecified viral hepatitis C without hepatic coma Status: Acute (7) Anemia Code(s): D64.9 - Anemia, unspecified Status: Acute (8) Cachexia Code(s): R64 - Cachexia Status: Acute (9) Leg swelling Code(s): M79.89 - Other specified soft tissue disorders Status: Acute (10) Contact dermatitis Code(s): L25.9 - Unspecified contact dermatitis, unspecified cause Status: Acute <Silvio Ott Teresita - 06/11/18 11:19> (1) Bacterial arthritis of right hip Code(s): M00.851 - Arthritis due to other bacteria, right hip Status: Acute Plan: S/p Right proximal femur resection (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 Incision site closure with eh. Tissue cx from 05/16 negative for growth On IV Ancef (05/14 - ), ID consulted and appreciated: Recommendations She will need Rx for osteomyelitis - at least 6-8 weeks IV Abx. AB to stop July 10 per ID. Incision site dressing changed today. Follow labs while on IV Abx: weekly CBC, creatinine. WNL today. Continue Ancef Follow temps Monitor progress Plan: Con't pain medication regimen: Methadone PO 30 mg daily, wean over long-term Ibuprofen for pain 1-3 [place] 5/325 for pain 4-6 Morphine for severe pain 7-10, will decrease to 2mg to prevent possible cause of hypotension Gabapentin 300 mg TID for neuropathic pain PT for early mobilization - OK'd to remove eh by patient's ortho. [place] removed 05/31/16. To follow up outpatient with ortho following discharge. 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 -Will D/C Ab on Jul 10 and transfer to addiction rehab facility. (3) Hypotension Code(s): I95.9 - Hypotension, unspecified Status: Acute Plan: Initially started on atenolol for BP, running low recently -Hold BP meds -Decrease morphine dose -Monitor BP (4) Stage II pressure ulcer of sacral region Code(s): L89.152 - Pressure ulcer of sacral region, stage 2 Status: Acute Plan: Pressure ulcer over sacral region now healing. -physical therapy recommended wheeled walker -Continue to monitor -Continue mobilization with physical therapy (5) Polysubstance abuse Code(s): F19.10 - Other psychoactive substance abuse, uncomplicated Status: Acute Plan: Hx of IVDU (heroin, dilaudid, and other narcotics) and smoker Con't methadone 30 mg daily. Plan to wean in long-term Nicotine patches Case management to help with outpatient placement, preferably [facility] for drug rehab Could also benefit from methadone or Suboxone outpatient (6) Hepatitis C Code(s): B19.20 - Unspecified viral hepatitis C without hepatic coma Status: Acute Plan: Will require outpatient f/u and treatment (7) Anemia Code(s): D64.9 - Anemia, unspecified Status: Acute Plan: Stable Hx of anemia requiring 2 units PRBCs on 05/16 at [facility] Microcytic, likely 2/2 to iron def Continue daily Ferrous sulfate (8) Cachexia Code(s): R64 - Cachexia Status: Acute Plan: -ordered double portions, eating well and gaining weight (9) Leg swelling Code(s): M79.89 - Other specified soft tissue disorders Status: Acute Plan: Ultrasound of the right lower extremity on 05/24/18 was negative for DVT - Using compression stocking to good effect (10) Contact dermatitis Code(s): L25.9 - Unspecified contact dermatitis, unspecified cause Status: Acute Plan: Contact dermatitis likely secondary to tape adhesive. Improving. -Removed dressing 06/04/17, advised on proper cleaning, will continue to monitor -Cortisone 2.5% BID to assist with pruritis <Katelyn Reyes - 06/11/18 11:40> - Assessment and Plan Medicine attending note 06/11/2018. Patient seen and evaluated with the resident medical team. Agree with orders as written by the resident medical team. Silvio Ott MD 06/11/2018. <Silvio Ott - 06/11/18 11:19> Medicine attending note 06/09/2018: Patient was seen and examined with resident team SPECT that the hypotension was secondary to morphine, patient's pulse did not significantly decreased with the atenolol however there will be cautioned regarding blood pressure going forward. Case discussed with resident team and agree with medical orders as written. Silvio Ott MD. <Katelyn Reyes - 06/11/18 10:55>
[2018-06-11 14:29] LABS: Amphetamine Screen,Urine Pos (Neg); Barbiturate Screen,Urine Neg (Neg); Cannabinoid Screen,Urine Neg (Neg); Cocaine Screen,Urine Neg (Neg)
[2018-06-11 14:33] LABS: Opiate Screen,Urine Neg (Neg)
[2018-06-11] MEDS: traZODone 50 MG Tablet PO PRN (22:33)
[2018-06-12] MEDS: Morphine Sulfate Inj 2 MG/ML Vial IV.PUSH PRN ×5 (03:08→20:29)
[2018-06-12 05:30] LABS: Hematocrit 35.1 % (35.0-46.0); Hemoglobin 10.9 gm/dL (11.6-15.3); Lymph % (Auto) 46.1 % (9.0-44.0); Mean Corpuscular HGB Conc 31.2 % (32.0-36.0); Mean Corpuscular Hemoglobin 23.4 pg (27.0-34.0); Mean Platelet Volume 8.1 fL (7.0-11.0); Mono % (Auto) 12.1 % (0.0-8.0); Neut % (Auto) 36.3 % (16.0-70.0); Platelet Count 242 th/mm3 (150-450); Red Blood Count 4.68 mil/mm3 (4.00-5.30); Red Cell Distribution Width 25.8 % (11.6-17.2); White Blood Count 4.3 th/mm3 (4.0-11.0)
[2018-06-12 05:31] LABS: Baso # (Auto) 0.1 th/mm3 (0.0-0.2); Baso % (Auto) 1.4 % (0.0-2.0); Eos # (Auto) 0.2 th/mm3 (0.0-0.4); Eos % (Auto) 4.1 % (0.0-4.0); Mono # (Auto) 0.5 th/mm3 (0.0-0.9); Neut # (Auto) 1.6 th/mm3 (1.8-7.7)
[2018-06-12 06:02] LABS: Anion Gap 5 meq/L (5-15); Blood Urea Nitrogen 22 mg/dL (7-18); Calcium 9.4 mg/dL (8.5-10.1); Carbon Dioxide 28.6 meq/L (21.0-32.0); Chloride 105 meq/L (98-107); Glomerular Filtration Rate Greater Than 89 mL/min (>89); Glucose,Random 81 mg/dL (74-106); Potassium 4.2 meq/L (3.5-5.1); Sodium 139 meq/L (136-145)
[2018-06-12] MEDS: ceFAZolin 2 GM Premix Inj 2 GM/50 ML PIGGYBACK IV.SIG SCH ×3 (06:21→20:29)
[2018-06-12 06:56] LABS: Dimorphic RBC Present; Platelet Estimate Normal (Normal); Platelet Morphology Normal (Normal)
[2018-06-12] MEDS: Gabapentin 300 MG Capsule PO SCH ×3 (09:04→17:13)
[2018-06-12] MEDS: Ferrous Sulfate 325 MG Tablet PO SCH (09:04)
[2018-06-12] MEDS: Enoxaparin Inj 40 MG/0.4 ML Syringe SQ SCH (09:04)
[2018-06-12] MEDS: Senna/Docusate Sodium 8.6/50 MG Tablet PO SCH ×2 (09:05→20:29)
[2018-06-12] MEDS: Methadone 10 MG Tablet PO SCH (09:05)
[2018-06-12] MEDS: Hydrocortisone 2.5% Cream 30 GM Tube TOPICAL SCH ×2 (09:05→20:33)
--- NOTE | 2018-06-12 10:10 | P.PNFP ---
Subjective Interval history: Patient seen and examined this morning. Patient denies acute events overnight. Denies nausea, vomiting, fever, chills abdominal pain, chest pain, shortness of breath, lightheadedness, dizziness. Improving pain in right leg. No other complaints. Discussed recent results of drug screen with patient. Primary team is been notified that the patient may have been taking illicit drugs inpatient. Drug screen came back amphetamine positive. Discussed the need for the patient's continued sobriety to improve medical outcomes. Discussed that at this time the patient will be restricted from accessing the general floor and will have restrictions placed on her visitors for her general safety. <Tip Mayer A - 06/12/18 10:10> Results - Labs Result diagrams: 06/12/18 03:52 06/12/18 03:52 <Silvio Ott - 06/12/18 10:33> Abnormal lab results 06/11/18 06/12/18 06/12/18 Range/Units 13:55 03:52 03:52 Hgb 10.9 L (11.6-15.3) gm/dL MCV 75.0 L (80.0-100.0) fL MCH 23.4 L (27.0-34.0) pg MCHC 31.2 L (32.0-36.0) % RDW 25.8 H (11.6-17.2) % Lymph % (Auto) 46.1 H (9.0-44.0) % Reynolds % (Auto) 12.1 H (0.0-8.0) % Eos % (Auto) 4.1 H (0.0-4.0) % Neut # (Auto) 1.6 L (1.8-7.7) th/mm3 Dimorphic RBCs Present H (None) BUN 22 H (7-18) mg/dL Ur Amphetamines Screen Pos H (Neg) Short CBC 06/12/18 Range/Units 03:52 WBC 4.3 (4.0-11.0) th/mm3 Hgb 10.9 L (11.6-15.3) gm/dL Hct 35.1 (35.0-46.0) % Plt Count 242 (150-450) th/mm3 BMP 06/12/18 03:52 Sodium 139 Potassium 4.2 Chloride 105 Carbon Dioxide 28.6 BUN 22 H Creatinine 0.68 Calcium 9.4 <Silvio Ott - 06/12/18 10:33> Abnormal lab results 06/11/18 06/12/18 06/12/18 Range/Units 13:55 03:52 03:52 Hgb 10.9 L (11.6-15.3) gm/dL MCV 75.0 L (80.0-100.0) fL MCH 23.4 L (27.0-34.0) pg MCHC 31.2 L (32.0-36.0) % RDW 25.8 H (11.6-17.2) % Lymph % (Auto) 46.1 H (9.0-44.0) % Reynolds % (Auto) 12.1 H (0.0-8.0) % Eos % (Auto) 4.1 H (0.0-4.0) % Neut # (Auto) 1.6 L (1.8-7.7) th/mm3 Dimorphic RBCs Present H (None) BUN 22 H (7-18) mg/dL Ur Amphetamines Screen Pos H (Neg) Short CBC 06/12/18 Range/Units 03:52 WBC 4.3 (4.0-11.0) th/mm3 Hgb 10.9 L (11.6-15.3) gm/dL Hct 35.1 (35.0-46.0) % Plt Count 242 (150-450) th/mm3 BMP 06/12/18 03:52 Sodium 139 Potassium 4.2 Chloride 105 Carbon Dioxide 28.6 BUN 22 H Creatinine 0.68 Calcium 9.4 <Tip Mayer - 06/12/18 10:10> Physical Exam Vital signs: Vital Signs 06/11/18 12:00 06/11/18 16:00 06/11/18 20:00 Temperature 98.1 F 98.0 F 98.6 F Pulse Rate 85 94 H 81 Respiratory Rate 18 18 18 Blood Pressure 103/63 116/56 L 115/55 L Pulse Oximetry 95 95 96 06/12/18 00:00 06/12/18 00:55 06/12/18 07:13 Temperature 98.4 F Pulse Rate 76 Respiratory Rate 20 18 20 Blood Pressure 114/59 L Pulse Oximetry 96 06/12/18 08:00 Temperature 97.9 F Pulse Rate 74 Respiratory Rate 16 Blood Pressure 125/71 Pulse Oximetry 96 Intake & Output 06/11/18 06/12/18 06/12/18 18:59 06:59 18:59 Intake Total 1010 / 1010 770 / 770 50 / 50 Output Total 2 / 2 Balance 1008 / 1008 770 / 770 50 / 50 Weight 50.5 kg Intake: IV 50 / 50 50 / 50 50 / 50 Ancef 2 GM Premix Inj 2 gm In 50 / 50 50 / 50 50 / 50 50 ml @ 100 mls/hr IV.SIG Q8H [facility] Rx#:[id number] Oral 960 / 960 720 / 720 Output: Urine 2 / 2 Other: # Voids 3 <Silvio Ott - 06/12/18 10:33> Vital Signs 06/11/18 12:00 06/11/18 16:00 06/11/18 20:00 Temperature 98.1 F 98.0 F 98.6 F Pulse Rate 85 94 H 81 Respiratory Rate 18 18 18 Blood Pressure 103/63 116/56 L 115/55 L Pulse Oximetry 95 95 96 06/12/18 00:00 06/12/18 00:55 06/12/18 07:13 Temperature 98.4 F Pulse Rate 76 Respiratory Rate 20 18 20 Blood Pressure 114/59 L Pulse Oximetry 96 06/12/18 08:00 Temperature 97.9 F Pulse Rate 74 Respiratory Rate 16 Blood Pressure 125/71 Pulse Oximetry 96 Intake & Output 06/11/18 06/12/18 06/12/18 18:59 06:59 18:59 Intake Total 1010 / 1010 770 / 770 50 / 50 Output Total 2 / 2 Balance 1008 / 1008 770 / 770 50 / 50 Weight 50.5 kg Intake: IV 50 / 50 50 / 50 50 / 50 Ancef 2 GM Premix Inj 2 gm In 50 / 50 50 / 50 50 / 50 50 ml @ 100 mls/hr IV.SIG Q8H [facility] Rx#:[id number] Oral 960 / 960 720 / 720 Output: Urine 2 / 2 Other: # Voids 3 <Henry JaquezTip - 06/12/18 10:10> Narrative: Narrative: GENERAL: Laying in bed, no distress SKIN: Right hip incision site inspected, no swelling, incision without dehiscence. Erythema improved where tape was touching skin. Rash overall improving. EYES: Pupils equal and round. No scleral icterus. No injection or drainage. CARDIOVASCULAR: Regular rate and rhythm, no murmurs, rubs, or gallops, regular pulses, normal cap refill RESPIRATORY: No accessory muscle use. Clear to auscultation. Breath sounds equal bilaterally. NEUROLOGICAL: Awake and alert. No obvious cranial nerve deficits. Motor grossly within normal limits. PSYCHIATRIC: Appropriate mood and affect; insight and judgment normal. <Henry JaquezTipJuan - 06/12/18 10:10> Assessment and Plan - Assessment (1) Bacterial arthritis of right hip Code(s): M00.851 - Arthritis due to other bacteria, right hip Status: Acute (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 Code(s): I33.0 - Acute and subacute infective endocarditis; B95.8 - Unspecified staphylococcus as the cause of diseases classified elsewhere Status: Acute (3) Hypotension Code(s): I95.9 - Hypotension, unspecified Status: Acute (4) Stage II pressure ulcer of sacral region Code(s): L89.152 - Pressure ulcer of sacral region, stage 2 Status: Acute (5) Polysubstance abuse Code(s): F19.10 - Other psychoactive substance abuse, uncomplicated Status: Acute (6) Hepatitis C Code(s): B19.20 - Unspecified viral hepatitis C without hepatic coma Status: Acute (7) Anemia Code(s): D64.9 - Anemia, unspecified Status: Acute (8) Cachexia Code(s): R64 - Cachexia Status: Acute (9) Leg swelling Code(s): M79.89 - Other specified soft tissue disorders Status: Acute (10) Contact dermatitis Code(s): L25.9 - Unspecified contact dermatitis, unspecified cause Status: Acute <Silvio Ott - 06/12/18 10:33> (1) Bacterial arthritis of right hip Code(s): M00.851 - Arthritis due to other bacteria, right hip Status: Acute Plan: S/p Right proximal femur resection (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 Incision site closure with eh. Tissue cx from 05/16 negative for growth On IV Ancef (05/14 - ), ID consulted and appreciated: Recommendations She will need Rx for osteomyelitis - at least 6-8 weeks IV Abx. AB to stop July 10 per ID. Incision site dressing changed today. Follow labs while on IV Abx: weekly CBC, creatinine. WNL today. Continue Ancef Follow temps Monitor progress Plan: Con't pain medication regimen: Methadone PO 30 mg daily, wean over long-term Ibuprofen for pain 1-3 [place] 5/325 for pain 4-6 Morphine for severe pain 7-10, will decrease to 2mg to prevent possible cause of hypotension Gabapentin 300 mg TID for neuropathic pain PT for early mobilization - OK'd to remove eh by patient's ortho. [place] removed 05/31/16. To follow up outpatient with ortho following discharge. 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 -Will D/C Ab on Jul 10 and transfer to addiction rehab facility. (3) Hypotension Code(s): I95.9 - Hypotension, unspecified Status: Acute Plan: Initially started on atenolol for BP, running low recently -Hold BP meds -Decrease morphine dose -Monitor BP (4) Stage II pressure ulcer of sacral region Code(s): L89.152 - Pressure ulcer of sacral region, stage 2 Status: Acute Plan: Pressure ulcer over sacral region now healing. -physical therapy recommended wheeled walker -Continue to monitor -Continue mobilization with physical therapy (5) Polysubstance abuse Code(s): F19.10 - Other psychoactive substance abuse, uncomplicated Status: Acute Plan: Hx of IVDU (heroin, dilaudid, and other narcotics) and smoker Con't methadone 30 mg daily. Plan to wean in long-term Nicotine patches Case management to help with outpatient placement, preferably [facility] for drug rehab Could also benefit from methadone or Suboxone outpatient Likely obtained illicit drugs from another patient, currently with visitor restrictions (6) Hepatitis C Code(s): B19.20 - Unspecified viral hepatitis C without hepatic coma Status: Acute Plan: Will require outpatient f/u and treatment (7) Anemia Code(s): D64.9 - Anemia, unspecified Status: Acute Plan: Stable Hx of anemia requiring 2 units PRBCs on 05/16 at [facility] Microcytic, likely 2/2 to iron def Continue daily Ferrous sulfate (8) Cachexia Code(s): R64 - Cachexia Status: Acute Plan: -ordered double portions, eating well and gaining weight (9) Leg swelling Code(s): M79.89 - Other specified soft tissue disorders Status: Acute Plan: Ultrasound of the right lower extremity on 05/24/18 was negative for DVT - Using compression stocking to good effect (10) Contact dermatitis Code(s): L25.9 - Unspecified contact dermatitis, unspecified cause Status: Acute Plan: Contact dermatitis likely secondary to tape adhesive. Improving. -Removed dressing 06/04/17, advised on proper cleaning, will continue to monitor -Cortisone 2.5% BID to assist with pruritis <Tip Mayer - 06/12/18 10:01> - Assessment and Plan Attending note: Patient seen and examined with the director global medical affairs team on the morning of 06/12/2018. Agree with orders as written per the director global medical affairs team. Silvio Ott MD 06/12/2018. <Silvio Ott - 06/12/18 10:33>
[2018-06-12] MEDS: traZODone 50 MG Tablet PO PRN (20:29)
[2018-06-13] MEDS: ceFAZolin 2 GM Premix Inj 2 GM/50 ML PIGGYBACK IV.SIG SCH ×3 (04:34→21:18)
[2018-06-13] MEDS: Morphine Sulfate Inj 2 MG/ML Vial IV.PUSH PRN ×5 (04:35→21:18)
[2018-06-13] MEDS: Gabapentin 300 MG Capsule PO SCH ×3 (08:50→17:14)
[2018-06-13] MEDS: Enoxaparin Inj 40 MG/0.4 ML Syringe SQ SCH (08:51)
[2018-06-13] MEDS: Senna/Docusate Sodium 8.6/50 MG Tablet PO SCH ×2 (08:51→21:18)
[2018-06-13] MEDS: Ferrous Sulfate 325 MG Tablet PO SCH (08:51)
[2018-06-13] MEDS: Hydrocortisone 2.5% Cream 30 GM Tube TOPICAL SCH ×2 (08:51→21:19)
[2018-06-13] MEDS: Methadone 10 MG Tablet PO SCH (08:51)
--- NOTE | 2018-06-13 14:16 | P.PNFP ---
Subjective Interval history: Patient seen and examined this morning. Patient denies acute events overnight. Denies nausea, vomiting, fever, chills abdominal pain, chest pain, shortness of breath, lightheadedness, dizziness. Improving pain in right leg. No other complaints. Results - Labs Result diagrams: 06/12/18 03:52 06/12/18 03:52 Physical Exam Vital signs: Vital Signs 06/12/18 16:00 06/12/18 20:00 06/12/18 20:34 Temperature 98.2 F 98.1 F Pulse Rate 63 78 Respiratory Rate 15 18 20 Blood Pressure 123/57 L 107/59 L Pulse Oximetry 98 94 L 06/13/18 00:00 06/13/18 06:19 06/13/18 06:20 Temperature 98.1 F Pulse Rate 72 Respiratory Rate 18 20 20 Blood Pressure 125/67 Pulse Oximetry 97 06/13/18 07:29 06/13/18 08:00 Temperature 97.9 F Pulse Rate 66 Respiratory Rate 20 17 Blood Pressure 145/77 H Pulse Oximetry 94 L Intake & Output 06/12/18 06/13/18 06/13/18 18:59 06:59 18:59 Intake Total 1600 / 1600 100 / 100 Balance 1600 / 1600 100 / 100 Weight 51.6 kg Intake: IV 100 / 100 100 / 100 Ancef 2 GM Premix Inj 2 gm In 100 / 100 100 / 100 50 ml @ 100 mls/hr IV.SIG Q8H [facility] Rx#:[id number] Oral 1500 / 1500 Other: # Voids 2 2 # Bowel Movements 2 Narrative: Narrative: GENERAL: Laying in bed, no distress SKIN: Right hip incision site inspected, no swelling, incision without dehiscence. Erythema improved where tape was touching skin. Rash overall improving. EYES: Pupils equal and round. No scleral icterus. No injection or drainage. CARDIOVASCULAR: Regular rate and rhythm, no murmurs, rubs, or gallops, regular pulses, normal cap refill RESPIRATORY: No accessory muscle use. Clear to auscultation. Breath sounds equal bilaterally. NEUROLOGICAL: Awake and alert. No obvious cranial nerve deficits. Motor grossly within normal limits. PSYCHIATRIC: Appropriate mood and affect; insight and judgment normal. 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 Incision site closure with eh. Tissue cx from 05/16 negative for growth On IV Ancef (05/14 - ), ID consulted and appreciated: Recommendations She will need Rx for osteomyelitis - at least 6-8 weeks IV Abx. AB to stop July 10 per ID. Incision site dressing changed today. Follow labs while on IV Abx: weekly CBC, creatinine. WNL today. Continue Ancef Follow temps Monitor progress Plan: Con't pain medication regimen: Methadone PO 30 mg daily, wean over long-term Ibuprofen for pain 1-3 [place] 5/325 for pain 4-6 Morphine for severe pain 7-10, will decrease to 2mg to prevent possible cause of hypotension Gabapentin 300 mg TID for neuropathic pain PT for early mobilization - OK'd to remove eh by patient's ortho. [place] removed 05/31/16. To follow up outpatient with ortho following discharge. 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 -Will D/C Ab on Jul 10 and transfer to addiction rehab facility. (3) Hypotension Code(s): I95.9 - Hypotension, unspecified Status: Acute Plan: Initially started on atenolol for BP, running low recently -Hold BP meds -Decrease morphine dose -Monitor BP (4) Stage II pressure ulcer of sacral region Code(s): L89.152 - Pressure ulcer of sacral region, stage 2 Status: Acute Plan: Pressure ulcer over sacral region now healing. -physical therapy recommended wheeled walker -Continue to monitor -Continue mobilization with physical therapy (5) Polysubstance abuse Code(s): F19.10 - Other psychoactive substance abuse, uncomplicated Status: Acute Plan: Hx of IVDU (heroin, dilaudid, and other narcotics) and smoker Con't methadone 30 mg daily. Plan to wean in long-term Nicotine patches Case management to help with outpatient placement, preferably [facility] for drug rehab Could also benefit from methadone or Suboxone outpatient Likely obtained illicit drugs from another patient, currently with visitor restrictions, mother and one sister can visit. (6) Hepatitis C Code(s): B19.20 - Unspecified viral hepatitis C without hepatic coma Status: Acute Plan: Will require outpatient f/u and treatment (7) Anemia Code(s): D64.9 - Anemia, unspecified Status: Acute Plan: Stable Hx of anemia requiring 2 units PRBCs on 05/16 at [facility] Microcytic, likely 2/2 to iron def Continue daily Ferrous sulfate (8) Cachexia Code(s): R64 - Cachexia Status: Acute Plan: -ordered double portions, eating well and gaining weight (9) Leg swelling Code(s): M79.89 - Other specified soft tissue disorders Status: Acute Plan: Ultrasound of the right lower extremity on 05/24/18 was negative for DVT - Using compression stocking to good effect (10) Contact dermatitis Code(s): L25.9 - Unspecified contact dermatitis, unspecified cause Status: Acute Plan: Contact dermatitis likely secondary to tape adhesive. Improving. -Removed dressing 06/04/17, advised on proper cleaning, will continue to monitor -Cortisone 2.5% BID to assist with pruritis
[2018-06-13] MEDS: traZODone 50 MG Tablet PO PRN (21:18)
[2018-06-14] MEDS: Morphine Sulfate Inj 2 MG/ML Vial IV.PUSH PRN ×6 (02:15→22:50)
[2018-06-14] MEDS: ceFAZolin 2 GM Premix Inj 2 GM/50 ML PIGGYBACK IV.SIG SCH ×3 (05:37→20:52)
[2018-06-14] MEDS: Methadone 10 MG Tablet PO SCH (09:41)
[2018-06-14] MEDS: Ferrous Sulfate 325 MG Tablet PO SCH (09:41)
[2018-06-14] MEDS: Enoxaparin Inj 40 MG/0.4 ML Syringe SQ SCH (09:41)
[2018-06-14] MEDS: Gabapentin 300 MG Capsule PO SCH ×3 (09:42→18:30)
[2018-06-14] MEDS: Senna/Docusate Sodium 8.6/50 MG Tablet PO SCH ×2 (09:42→20:52)
--- NOTE | 2018-06-14 10:11 | P.PNFP ---
Subjective Interval history: Patient seen and examined this morning. Patient denies acute events overnight. Denies nausea, vomiting, fever, chills abdominal pain, chest pain, shortness of breath, lightheadedness, dizziness. Improving pain in right leg. No other complaints. Excited to go to the garden today with PT. Results - Labs Result diagrams: 06/12/18 03:52 06/12/18 03:52 Physical Exam Vital signs: Vital Signs 06/13/18 15:53 06/13/18 20:00 06/14/18 00:00 Temperature 97.9 F 98.2 F 98.2 F Pulse Rate 69 71 67 Respiratory Rate 17 18 18 Blood Pressure 94/50 L 113/59 L 116/64 Pulse Oximetry 98 97 98 06/14/18 07:59 Temperature 97.9 F Pulse Rate 67 Respiratory Rate 16 Blood Pressure 117/59 L Pulse Oximetry 96 Intake & Output 06/13/18 06/14/18 06/14/18 18:59 06:59 18:59 Intake Total 1150 / 1150 460 / 460 Balance 1150 / 1150 460 / 460 Weight 51.9 kg Intake: IV 50 / 50 100 / 100 Ancef 2 GM Premix Inj 2 gm In 50 / 50 100 / 100 50 ml @ 100 mls/hr IV.SIG Q8H [facility] Rx#:[id number] Oral 1100 / 1100 360 / 360 Other: # Voids 3 2 Date of Last Bowel Movement 06/13/18 # Bowel Movements 1 Narrative: Narrative: GENERAL: Laying in bed, no distress SKIN: Right hip incision site inspected, no swelling, incision without dehiscence. Erythema improved where tape was touching skin. Rash overall improving. EYES: Pupils equal and round. No scleral icterus. No injection or drainage. CARDIOVASCULAR: Regular rate and rhythm, no murmurs, rubs, or gallops, regular pulses, normal cap refill RESPIRATORY: No accessory muscle use. Clear to auscultation. Breath sounds equal bilaterally. NEUROLOGICAL: Awake and alert. No obvious cranial nerve deficits. Motor grossly within normal limits. PSYCHIATRIC: Appropriate mood and affect; insight and judgment normal. 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 Incision site closure with eh. Tissue cx from 05/16 negative for growth On IV Ancef (05/14 - ), ID consulted and appreciated: Recommendations She will need Rx for osteomyelitis - at least 6-8 weeks IV Abx. AB to stop July 10 per ID. Incision site dressing changed today. Follow labs while on IV Abx: weekly CBC, creatinine. WNL today. Continue Ancef Follow temps Monitor progress Plan: Con't pain medication regimen: Methadone PO 30 mg daily, wean over long-term Ibuprofen for pain 1-3 [place] 5/325 for pain 4-6 Morphine for severe pain 7-10, will decrease to 2mg to prevent possible cause of hypotension Gabapentin 300 mg TID for neuropathic pain PT for early mobilization - OK'd to remove eh by patient's ortho. [place] removed 05/31/16. To follow up outpatient with ortho following discharge. 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 -Will D/C Ab on Jul 10 and transfer to addiction rehab facility. (3) Hypotension Code(s): I95.9 - Hypotension, unspecified Status: Acute Plan: Initially started on atenolol for BP, running low recently -Hold BP meds -Decrease morphine dose -Monitor BP (4) Stage II pressure ulcer of sacral region Code(s): L89.152 - Pressure ulcer of sacral region, stage 2 Status: Acute Plan: Pressure ulcer over sacral region now healing. -physical therapy recommended wheeled walker -Continue to monitor -Continue mobilization with physical therapy (5) Polysubstance abuse Code(s): F19.10 - Other psychoactive substance abuse, uncomplicated Status: Acute Plan: Hx of IVDU (heroin, dilaudid, and other narcotics) and smoker Con't methadone 30 mg daily. Plan to wean in long-term Nicotine patches Case management to help with outpatient placement, preferably [facility] Could also benefit from methadone or Suboxone outpatient Likely obtained illicit drugs from another patient, currently with visitor restrictions, mother and one sister can visit. (6) Hepatitis C Code(s): B19.20 - Unspecified viral hepatitis C without hepatic coma Status: Acute Plan: Will require outpatient f/u and treatment (7) Anemia Code(s): D64.9 - Anemia, unspecified Status: Acute Plan: Stable Hx of anemia requiring 2 units PRBCs on 05/16 at [facility] Microcytic, likely 2/2 to iron def Continue daily Ferrous sulfate (8) Cachexia Code(s): R64 - Cachexia Status: Acute Plan: -ordered double portions, eating well and gaining weight (9) Leg swelling Code(s): M79.89 - Other specified soft tissue disorders Status: Acute Plan: Ultrasound of the right lower extremity on 05/24/18 was negative for DVT - Using compression stocking to good effect (10) Contact dermatitis Code(s): L25.9 - Unspecified contact dermatitis, unspecified cause Status: Acute Plan: Contact dermatitis likely secondary to tape adhesive. Improving. -Removed dressing 06/04/17, advised on proper cleaning, will continue to monitor -Cortisone 2.5% BID to assist with pruritis
[2018-06-14] MEDS: Hydrocortisone 2.5% Cream 30 GM Tube TOPICAL SCH ×2 (10:45→20:55)
[2018-06-14] MEDS: traZODone 50 MG Tablet PO PRN (22:49)
[2018-06-15] MEDS: Morphine Sulfate Inj 2 MG/ML Vial IV.PUSH PRN ×5 (03:34→21:57)
[2018-06-15] MEDS: ceFAZolin 2 GM Premix Inj 2 GM/50 ML PIGGYBACK IV.SIG SCH ×3 (05:35→20:28)
--- NOTE | 2018-06-15 07:54 | P.PNFP ---
Subjective Interval history: Patient seen and examined at bedside this morning. No acute events overnight per nursing. She denies any chest pain, shortness of breath, abdominal pain, vomiting, problems with urination or defecation. She understands her restrictions with no visitors moving forward except for her mother and sister. She has no other complaints this morning. Results - Labs Result diagrams: 06/12/18 03:52 06/12/18 03:52 Physical Exam Vital signs: Vital Signs 06/14/18 07:59 06/14/18 12:00 06/14/18 16:00 Temperature 97.9 F 97.8 F 97.3 F L Pulse Rate 67 72 81 Respiratory Rate 16 17 16 Blood Pressure 117/59 L 119/76 115/54 L Pulse Oximetry 96 98 98 06/14/18 20:00 06/15/18 00:00 Temperature 97.8 F 97.3 F L Pulse Rate 65 72 Respiratory Rate 20 20 Blood Pressure 113/55 L 106/59 L Pulse Oximetry 96 96 Intake & Output 06/14/18 06/15/18 06/15/18 18:59 06:59 18:59 Intake Total 50 / 50 820 / 820 Balance 50 / 50 820 / 820 Weight 51.8 kg Intake: IV 50 / 50 100 / 100 Ancef 2 GM Premix Inj 2 gm In 50 / 50 100 / 100 50 ml @ 100 mls/hr IV.SIG Q8H [facility] Rx#:[id number] Oral 720 / 720 Other: # Voids 5 2 Date of Last Bowel Movement 06/14/18 06/14/18 # Bowel Movements 2 Narrative: Narrative: GENERAL: Laying in bed, no distress SKIN: Right hip incision site inspected, no swelling, incision without dehiscence. Erythema improved where tape was touching skin. Rash overall improving. EYES: Pupils equal and round. No scleral icterus. No injection or drainage. CARDIOVASCULAR: Regular rate and rhythm, no murmurs, rubs, or gallops, regular pulses, normal cap refill RESPIRATORY: No accessory muscle use. Clear to auscultation. Breath sounds equal bilaterally. NEUROLOGICAL: Awake and alert. No obvious cranial nerve deficits. Motor grossly within normal limits. PSYCHIATRIC: Appropriate mood and affect; insight and judgment normal. 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 Incision site closure with jimy. Tissue cx from 05/16 negative for growth On IV Ancef (05/14 - ), ID consulted and appreciated: Recommendations She will need Rx for osteomyelitis - at least 6-8 weeks IV Abx. AB to stop July 10 per ID. Incision site dressing changed today. Follow labs while on IV Abx: weekly CBC, creatinine. WNL today. Continue Ancef Follow temps Monitor progress Plan: Con't pain medication regimen: Methadone PO 30 mg daily, wean over long-term Ibuprofen for pain 1-3 [place] 5/325 for pain 4-6 Morphine for severe pain 7-10, will decrease to 2mg to prevent possible cause of hypotension Gabapentin 300 mg TID for neuropathic pain PT for early mobilization - OK'd to remove jimy by patient's ortho. [place] removed 05/31/16. To follow up outpatient with ortho following discharge. 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 -Will D/C Ab on Jul 10 and transfer to addiction rehab facility. (3) Hypotension Code(s): I95.9 - Hypotension, unspecified Status: Acute Plan: Initially started on atenolol for BP, running low recently -Hold BP meds -Decrease morphine dose -Monitor BP (4) Stage II pressure ulcer of sacral region Code(s): L89.152 - Pressure ulcer of sacral region, stage 2 Status: Acute Plan: Pressure ulcer over sacral region now healing. -physical therapy recommended wheeled walker -Continue to monitor -Continue mobilization with physical therapy (5) Polysubstance abuse Code(s): F19.10 - Other psychoactive substance abuse, uncomplicated Status: Acute Plan: Hx of IVDU (heroin, dilaudid, and other narcotics) and smoker Con't methadone 30 mg daily. Plan to wean in long-term Nicotine patches Case management to help with outpatient placement, preferably [facility] Could also benefit from methadone or Suboxone outpatient Likely obtained illicit drugs from another patient, currently with visitor restrictions, mother and one sister can visit. (6) Hepatitis C Code(s): B19.20 - Unspecified viral hepatitis C without hepatic coma Status: Acute Plan: Will require outpatient f/u and treatment (7) Anemia Code(s): D64.9 - Anemia, unspecified Status: Acute Plan: Stable Hx of anemia requiring 2 units PRBCs on 05/16 at [facility] Microcytic, likely 2/2 to iron def Continue daily Ferrous sulfate (8) Cachexia Code(s): R64 - Cachexia Status: Acute Plan: -ordered double portions, eating well and gaining weight (9) Leg swelling Code(s): M79.89 - Other specified soft tissue disorders Status: Acute Plan: Ultrasound of the right lower extremity on 05/24/18 was negative for DVT - Using compression stocking to good effect (10) Contact dermatitis Code(s): L25.9 - Unspecified contact dermatitis, unspecified cause Status: Acute Plan: Contact dermatitis likely secondary to tape adhesive. Improving. -Removed dressing 06/04/17, advised on proper cleaning, will continue to monitor -Cortisone 2.5% BID to assist with pruritis - Assessment and Plan Attending note: Patient seen and examined with the medical lab tech instructor team on the morning of 06/12/2018. Agree with orders as written per the medical lab tech instructor team. Silvio Ott MD 06/12/2018.
[2018-06-15] MEDS: Methadone 10 MG Tablet PO SCH (09:19)
[2018-06-15] MEDS: Gabapentin 300 MG Capsule PO SCH ×3 (09:20→17:56)
[2018-06-15] MEDS: Enoxaparin Inj 40 MG/0.4 ML Syringe SQ SCH (09:20)
[2018-06-15] MEDS: Senna/Docusate Sodium 8.6/50 MG Tablet PO SCH ×2 (09:20→20:28)
[2018-06-15] MEDS: Ferrous Sulfate 325 MG Tablet PO SCH (09:20)
[2018-06-15] MEDS: Hydrocortisone 2.5% Cream 30 GM Tube TOPICAL SCH ×2 (09:21→20:32)
--- NOTE | 2018-06-15 10:43 | P.PNADD ---
Addendum to Inpatient Note Additional information: OFF SERVICE NOTE from 05/25/18 Patient is a 42-year-old female who is in known IV drug user with frequent hospitalizations for complications secondary to IV drug use presenting to [facility] for continued treatment of endocarditis and osteomyelitis. Patient was admitted 05/10 for left hip pain which, on imaging, was consistent with extensive osteomyelitis associated with pathologic fracture of the medial acetabular roof. Wound cultures were positive for Staph Aureus. She had a prior hospitalization 05/03/18 through 05/09/18 during which she was found to have bacteremia and endocarditis that was MSSA positive on blood cultures. Repeat cultures from 05/05-05/07 were negative for growth. Was placed on IV Ancef but left AMA. On her second hospitalization, Infectious disease was consulted for recommendations, and she was initially placed on Vanco and cefepime from 05/10- (3 full days). she was then transitioned to IV Ancef the day of transfer. Due to the extent of the osteomyelitis and hip fracture, Orthopedic surgery was consulted and advised patient be transferred to another facility for reconstructive surgery. She was transferred to [facility] on 05/14. At [facility], IV Ancef was continued. Patient underwent emergent I&D R hip and Girdlestone R hip on 05/[address] Cueva - the procedure was chosen to avoid a complication related to an implant related infection. The incision site was closed w/eh and follow-up in [address] Cueva was advised. Tissue culture from 05/16 showed no growth for two days. Advised a ANNA on the patient on return to [facility] (this was deferred later because it would likely not record changer assembler). Received blood transfusion 05/16 of 2 units PRBCs. For pain control, she was placed on methadone 10 mg TID (was on 30 mg BID previously). Gabapentin 100 mg qHS, Morphine IV PRN, and PO [place] were added for pain control. Patient worked w/PT while inpatient. For DVT prophylaxis, advised Lovenox 40 mg daily for two weeks. On readmission 05/19, patient complained of right hip soreness but no other problems. Her medication regimen from [facility] was resumed, along with IV Ancef. Ibuprofen was later added, which the patient found very helpful for her pain. Right hip pain and swelling have significantly improved, as well as her mobility. Incision site and remained clean and dry, and methadone is helping to prevent withdrawals and cravings. It was explained to her that she will likely not ever be able to walk on her right leg normally again and that she will need to learn how to safely transfer and mobilize w/a walker through work w/PT. ID is again following patient and have recommended patient continue IV abx for a total of 6-8 weeks. Due to right leg swelling noted yesterday, an US of the RLE was ordered to evaluate for DVT. It was negative. UPDATES: Patient eh were removed on [facility] on 05/31/16. Dr. Benny Carbone's office stated that it was okay for follow-up once patient has completed endocarditis treatment. Per ID, antibiotic treatment will be done on July 10, patient is currently working on her rehab placement as an outpatient. Patient developed contact dermatitis to tape adhesive but improved with cortisone 2.5% twice daily. Patient continues to receive daily antibiotics and works with PT. Visitors are currently restricted due to patient having positive amphetamines and UDS. Only visitors allowed are mother Theresa Sanchez and sister: Smiley Allan. Patient is subject to random drug screens.
[2018-06-15] MEDS: traZODone 50 MG Tablet PO PRN (21:57)
[2018-06-16] MEDS: Morphine Sulfate Inj 2 MG/ML Vial IV.PUSH PRN ×5 (02:10→23:30)
[2018-06-16] MEDS: ceFAZolin 2 GM Premix Inj 2 GM/50 ML PIGGYBACK IV.SIG SCH ×3 (04:39→22:56)
[2018-06-16 06:09] LABS: Baso # (Auto) 0.1 th/mm3 (0.0-0.2); Baso % (Auto) 1.5 % (0.0-2.0); Eos # (Auto) 0.2 th/mm3 (0.0-0.4); Eos % (Auto) 5.6 % (0.0-4.0); Hematocrit 32.7 % (35.0-46.0); Hemoglobin 10.6 gm/dL (11.6-15.3); Lymph # (Auto) 1.6 th/mm3 (1.0-4.8); Lymph % (Auto) 36.8 % (9.0-44.0); Mean Corpuscular HGB Conc 32.3 % (32.0-36.0); Mean Corpuscular Hemoglobin 24.4 pg (27.0-34.0); Mean Corpuscular Volume 75.6 fL (80.0-100.0); Mean Platelet Volume 8.5 fL (7.0-11.0); Mono # (Auto) 0.5 th/mm3 (0.0-0.9); Mono % (Auto) 10.8 % (0.0-8.0); Neut # (Auto) 1.9 th/mm3 (1.8-7.7); Neut % (Auto) 45.3 % (16.0-70.0); Platelet Count 227 th/mm3 (150-450); Red Blood Count 4.33 mil/mm3 (4.00-5.30); White Blood Count 4.3 th/mm3 (4.0-11.0)
[2018-06-16 06:30] LABS: Anion Gap 6 meq/L (5-15); Blood Urea Nitrogen 29 mg/dL (7-18); Calcium 9.1 mg/dL (8.5-10.1); Carbon Dioxide 29.8 meq/L (21.0-32.0); Chloride 103 meq/L (98-107); Glomerular Filtration Rate Greater Than 89 mL/min (>89); Glucose,Random 95 mg/dL (74-106); Sodium 139 meq/L (136-145)
[2018-06-16] MEDS: Gabapentin 300 MG Capsule PO SCH ×3 (09:28→18:39)
[2018-06-16] MEDS: Methadone 10 MG Tablet PO SCH (09:28)
[2018-06-16] MEDS: Enoxaparin Inj 40 MG/0.4 ML Syringe SQ SCH (09:28)
[2018-06-16] MEDS: Ferrous Sulfate 325 MG Tablet PO SCH (09:29)
[2018-06-16] MEDS: Senna/Docusate Sodium 8.6/50 MG Tablet PO SCH ×2 (09:29→22:56)
--- NOTE | 2018-06-16 12:28 | P.PNFP ---
Subjective Interval history: Patient was seen and evaluated this morning. She reports doing well. Patient denies chest pain, heart palpitations, shortness of breath, nausea/vomiting, diarrhea and constipation. All questions were answered. Results - Labs Result diagrams: 06/16/18 04:23 06/16/18 04:23 Abnormal lab results 06/16/18 06/16/18 Range/Units 04:23 04:23 Hgb 10.6 L (11.6-15.3) gm/dL Hct 32.7 L (35.0-46.0) % MCV 75.6 L (80.0-100.0) fL MCH 24.4 L (27.0-34.0) pg RDW 25.0 H (11.6-17.2) % [place] % (Auto) 10.8 H (0.0-8.0) % Eos % (Auto) 5.6 H (0.0-4.0) % BUN 29 H (7-18) mg/dL Short CBC 06/16/18 Range/Units 04:23 WBC 4.3 (4.0-11.0) th/mm3 Hgb 10.6 L (11.6-15.3) gm/dL Hct 32.7 L (35.0-46.0) % Plt Count 227 (150-450) th/mm3 BMP 06/16/18 04:23 Sodium 139 Potassium 4.0 Chloride 103 Carbon Dioxide 29.8 BUN 29 H Creatinine 0.70 Calcium 9.1 Physical Exam Vital signs: Vital Signs 06/15/18 16:00 06/15/18 20:51 06/15/18 22:18 Temperature 98.1 F 97.9 F Pulse Rate 84 65 Respiratory Rate 16 18 16 Blood Pressure 118/65 111/58 L Pulse Oximetry 100 99 06/15/18 23:11 06/15/18 23:12 06/16/18 00:16 Temperature 97.8 F Pulse Rate 67 Respiratory Rate 16 16 16 Blood Pressure 105/54 L Pulse Oximetry 97 06/16/18 03:33 06/16/18 08:00 Temperature 97.7 F Pulse Rate 87 Respiratory Rate 16 17 Blood Pressure 108/53 L Pulse Oximetry 98 Intake & Output 06/15/18 06/16/18 06/16/18 18:59 06:59 18:59 Intake Total 1450 / 1450 1060 / 1060 Balance 1450 / 1450 1060 / 1060 Weight 53.7 kg Intake: IV 50 / 50 100 / 100 Ancef 2 GM Premix Inj 2 gm In 50 / 50 100 / 100 50 ml @ 100 mls/hr IV.SIG Q8H [facility] Rx#:[id number] Oral 1400 / 1400 960 / 960 Other: # Voids 3 3 Date of Last Bowel Movement 06/15/18 06/15/18 # Bowel Movements 1 1 Narrative: GENERAL: female, sitting at bedside; in no acute distress. EYES: Pupils equal and round. No scleral icterus. No injection or drainage. CARDIOVASCULAR: Regular rate and rhythm, no murmurs, rubs, or gallops. RESPIRATORY: No accessory muscle use. Clear to auscultation. Breath sounds equal bilaterally. NEUROLOGICAL: Awake and alert. Assessment and Plan - Assessment (1) Bacterial arthritis of right hip Code(s): M00.851 - Arthritis due to other bacteria, right hip Status: Acute Plan: S/p right proximal femur resection (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 Incision site closure with eh. [place] removed. Tissue culture from 05/16 negative for growth. On IV Ancef (05/14 - 07/10). Follow labs while on IV Abx: weekly CBC, creatinine. Continue pain management: Methadone PO 30 mg daily, wean over long-term. Ibuprofen 800mg PO q8hr. Gabapentin 300mg PO TID. [place] 5/325 PRN Pain 4-6. Morphine PRN Pain 7-10. PT following. (2) Stage II pressure ulcer of sacral region Code(s): L89.152 - Pressure ulcer of sacral region, stage 2 Status: Acute Plan: Pressure ulcer over sacral region now healing. Continue to monitor. Continue mobilization with physical therapy. (3) Polysubstance abuse Code(s): F19.10 - Other psychoactive substance abuse, uncomplicated Status: Chronic Plan: Patient with history of IVDU (heroin, dilaudid, and other narcotics) and smoker. Continue methadone as above. Nicotine patches Case management to help with outpatient placement, preferably [facility] for drug rehab. Likely obtained illicit drugs from another patient during this hospitalization; currently with visitor restrictions, mother and one sister may visit. (4) Hepatitis C Code(s): B19.20 - Unspecified viral hepatitis C without hepatic coma Status: Chronic Plan: Patient with history of hepatitis C. Will require outpatient f/u and treatment. (5) Anemia Code(s): D64.9 - Anemia, unspecified Status: Chronic Plan: Stable. Microcytic, likely secondary to iron deficiency. Continue daily ferrous sulfate. (6) Cachexia Code(s): R64 - Cachexia Status: Chronic Plan: Gaining weight. (7) Contact dermatitis Code(s): L25.9 - Unspecified contact dermatitis, unspecified cause Status: Acute Plan: Contact dermatitis likely secondary to tape adhesive. Improving. Removed dressing 06/04/17, advised on proper cleaning, will continue to monitor. Cortisone 2.5% BID to assist with pruritus.
[2018-06-16] MEDS: Hydrocortisone 2.5% Cream 30 GM Tube TOPICAL SCH ×2 (13:58→22:57)
[2018-06-16] MEDS: traZODone 50 MG Tablet PO PRN (23:30)
[2018-06-17] MEDS: ceFAZolin 2 GM Premix Inj 2 GM/50 ML PIGGYBACK IV.SIG SCH ×3 (04:00→22:30)
[2018-06-17] MEDS: Morphine Sulfate Inj 2 MG/ML Vial IV.PUSH PRN ×4 (04:16→22:29)
[2018-06-17] MEDS: Senna/Docusate Sodium 8.6/50 MG Tablet PO SCH ×2 (08:42→20:50)
[2018-06-17] MEDS: Ferrous Sulfate 325 MG Tablet PO SCH (08:42)
[2018-06-17] MEDS: Methadone 10 MG Tablet PO SCH (08:42)
[2018-06-17] MEDS: Gabapentin 300 MG Capsule PO SCH ×3 (08:42→17:30)
[2018-06-17] MEDS: Enoxaparin Inj 40 MG/0.4 ML Syringe SQ SCH (08:42)
[2018-06-17] MEDS: Hydrocortisone 2.5% Cream 30 GM Tube TOPICAL SCH ×2 (08:43→20:47)
--- NOTE | 2018-06-17 12:26 | P.PNFP ---
Subjective Interval history: Patient was seen and evaluated this morning. She reports feeling bloated and experiences occasional shortness of breath when bending over. Patient denies chest pain, heart palpitations, nausea/vomiting, diarrhea and constipation. She reports normal stool; she denies black or bloody stool. Patient reports calling [facility] as well as a drug rehabilitation facility yesterday. She was unable to speak to anyone but was encouraged to keep trying again today. All questions were answered. Results - Labs Result diagrams: 06/16/18 04:23 06/16/18 04:23 Physical Exam Vital signs: Vital Signs 06/16/18 16:00 06/16/18 20:00 06/17/18 00:00 Temperature 95.7 F L 97.4 F L 98.1 F Pulse Rate 68 77 73 Respiratory Rate 17 18 18 Blood Pressure 118/56 L 115/56 L 109/57 L Pulse Oximetry 99 95 97 06/17/18 08:00 Temperature 98.1 F Pulse Rate 65 Respiratory Rate 20 Blood Pressure 108/56 L Pulse Oximetry 100 Intake & Output 06/16/18 06/17/18 06/17/18 18:59 06:59 18:59 Intake Total 650 / 650 740 / 740 Balance 650 / 650 740 / 740 Weight 53.7 kg Intake: IV 50 / 50 100 / 100 Ancef 2 GM Premix Inj 2 gm In 50 / 50 100 / 100 50 ml @ 100 mls/hr IV.SIG Q8H [facility] Rx#:[id number] Oral 600 / 600 640 / 640 Other: # Voids 5 2 Date of Last Bowel Movement 06/16/18 06/16/18 # Bowel Movements 1 Narrative: GENERAL: female, sitting at bedside; in no acute distress. EYES: Pupils equal and round. No scleral icterus. No injection or drainage. CARDIOVASCULAR: Regular rate and rhythm, no murmurs, rubs, or gallops. RESPIRATORY: No accessory muscle use. Clear to auscultation. Breath sounds equal bilaterally. EXTREMITY: Left lateral hip incision healing well. SACRAL AREA: No evidence of ulceration. NEUROLOGICAL: Awake and alert. Assessment and Plan - Assessment (1) Bacterial arthritis of right hip Code(s): M00.851 - Arthritis due to other bacteria, right hip Status: Acute Plan: Well healed incision. Patient ambulating well. Ancef (05/14 - 07/10). Follow labs while on IV Abx: weekly CBC, creatinine. Continue pain management: Methadone PO 30 mg daily, wean over long-term. Ibuprofen 800mg PO q8hr. Gabapentin 300mg PO TID. [place] 5/325 PRN Pain 4-6. Morphine PRN Pain 7-10. Hospital Course: S/p right proximal femur resection (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 Incision site closure with eh. [place] removed. Tissue culture from 05/16 negative for growth. PT following. (2) Anemia Code(s): D64.9 - Anemia, unspecified Status: Chronic Plan: Stable. Microcytic, likely secondary to iron deficiency. Continue daily ferrous sulfate. (3) Polysubstance abuse Code(s): F19.10 - Other psychoactive substance abuse, uncomplicated Status: Chronic Plan: Patient with history of IVDU (heroin, dilaudid, and other narcotics) and smoker. Continue methadone as above. Nicotine patches Case management to help with outpatient placement, preferably [facility] for drug rehab. Likely obtained illicit drugs from another patient during this hospitalization; currently with visitor restrictions, mother and one sister may visit. (4) Cachexia Code(s): R64 - Cachexia Status: Chronic Plan: Gaining weight. (5) Hepatitis C Code(s): B19.20 - Unspecified viral hepatitis C without hepatic coma Status: Chronic Plan: Patient with history of hepatitis C. Will require outpatient f/u and treatment. (6) Nutrition, metabolism, and development symptoms Code(s): R63.8 - Other symptoms and signs concerning food and fluid intake Status: Acute Plan: Fluid: Tolerating PO. Diet: Regular with supplementation. Electrolytes: Monitor and replete as necessary.
[2018-06-17] MEDS: traZODone 50 MG Tablet PO PRN (22:29)
[2018-06-18] MEDS: Morphine Sulfate Inj 2 MG/ML Vial IV.PUSH PRN ×4 (04:54→18:03)
[2018-06-18] MEDS: ceFAZolin 2 GM Premix Inj 2 GM/50 ML PIGGYBACK IV.SIG SCH ×3 (04:54→22:34)
[2018-06-18] MEDS: Enoxaparin Inj 40 MG/0.4 ML Syringe SQ SCH (08:44)
[2018-06-18] MEDS: Methadone 10 MG Tablet PO SCH (08:44)
[2018-06-18] MEDS: Gabapentin 300 MG Capsule PO SCH ×3 (08:45→18:08)
[2018-06-18] MEDS: Ferrous Sulfate 325 MG Tablet PO SCH (08:45)
[2018-06-18] MEDS: Senna/Docusate Sodium 8.6/50 MG Tablet PO SCH ×2 (08:47→22:35)
[2018-06-18] MEDS: Hydrocortisone 2.5% Cream 30 GM Tube TOPICAL SCH ×2 (08:47→22:36)
--- NOTE | 2018-06-18 09:52 | P.PNFP ---
Subjective Interval history: Patient was seen and evaluated this morning. Patient denies chest pain, heart palpitations, shortness of breath, nausea/vomiting, diarrhea and constipation. She reports normal stool; she denies black or bloody stool. Patient reports calling [employer] as well as a drug rehabilitation facility again yesterday. She was unable to speak to anyone but was encouraged to keep trying again today. All questions were answered. Results - Labs Result diagrams: 06/16/18 04:23 06/16/18 04:23 Physical Exam Vital signs: Vital Signs 06/17/18 12:00 06/17/18 16:00 06/17/18 20:00 Temperature 98.0 F 97.9 F 97.3 F L Pulse Rate 77 82 83 Respiratory Rate 18 18 19 Blood Pressure 111/59 L 118/65 119/59 L Pulse Oximetry 98 99 98 06/17/18 22:40 06/17/18 23:00 06/18/18 00:00 Temperature 97.9 F Pulse Rate 66 Respiratory Rate 16 16 19 Blood Pressure 124/61 Pulse Oximetry 94 L 06/18/18 05:10 06/18/18 08:00 Temperature 97.9 F Pulse Rate 64 Respiratory Rate 16 16 Blood Pressure 99/52 L Pulse Oximetry 99 Intake & Output 06/17/18 06/18/18 06/18/18 18:59 06:59 18:59 Intake Total 850 / 850 600 / 600 Balance 850 / 850 600 / 600 Weight 53.7 kg Intake: IV 50 / 50 100 / 100 Ancef 2 GM Premix Inj 2 gm In 50 / 50 100 / 100 50 ml @ 100 mls/hr IV.SIG Q8H [facility] Rx#:[id number] Oral 800 / 800 500 / 500 Other: # Voids 4 2 Date of Last Bowel Movement 06/16/18 06/17/18 # Bowel Movements 2 1 Narrative: GENERAL: female, sitting at bedside; in no acute distress. EYES: Pupils equal and round. No scleral icterus. No injection or drainage. CARDIOVASCULAR: Regular rate and rhythm, no murmurs, rubs, or gallops. RESPIRATORY: No accessory muscle use. Clear to auscultation. Breath sounds equal bilaterally. EXTREMITY: Left lateral hip incision healing well. NEUROLOGICAL: Awake and alert. Assessment and Plan - Assessment (1) Bacterial arthritis of right hip Code(s): M00.851 - Arthritis due to other bacteria, right hip Status: Acute Plan: Well healed incision. Patient ambulating well. Ancef (05/14 - 07/10). Follow labs while on IV Abx: weekly CBC, creatinine. Continue pain management: Methadone PO 30 mg daily, wean over long-term. Ibuprofen 800mg PO q8hr. Gabapentin 300mg PO TID. [place] 5/325 PRN Pain 4-6. Change morphine 2mg q4hr to q6hr PRN Pain 7-10. Hospital Course: S/p right proximal femur resection (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 Incision site closure with he. Eh removed. Tissue culture from 05/16 negative for growth. PT following. (2) Anemia Code(s): D64.9 - Anemia, unspecified Status: Chronic Plan: Stable. Microcytic, likely secondary to iron deficiency. Continue daily ferrous sulfate. (3) Polysubstance abuse Code(s): F19.10 - Other psychoactive substance abuse, uncomplicated Status: Chronic Plan: Patient with history of IVDU (heroin, dilaudid, and other narcotics) and smoker. Continue methadone as above. Nicotine patches. Case management to help with outpatient placement. Likely obtained illicit drugs from another patient during this hospitalization; currently with visitor restrictions, mother and one sister may visit. (4) Cachexia Code(s): R64 - Cachexia Status: Chronic Plan: Gaining weight. (5) Hepatitis C Code(s): B19.20 - Unspecified viral hepatitis C without hepatic coma Status: Chronic Plan: Patient with history of hepatitis C. Will require outpatient f/u and treatment. (6) Nutrition, metabolism, and development symptoms Code(s): R63.8 - Other symptoms and signs concerning food and fluid intake Status: Acute Plan: Fluid: Tolerating PO. Diet: Regular with supplementation. Electrolytes: Monitor and replete as necessary.
[2018-06-18] MEDS ORDERED: Morphine Sulfate Inj 2 MG/ML Vial IV.PUSH PRN (13:00)
--- NOTE | 2018-06-18 14:00 | US ---
EXAM DATE: 06/18/2018 1:53 PM EST AGE/SEX: 42 years / Female INDICATIONS: Right leg swelling. CLINICAL DATA: This is the patient's initial encounter. Patient reports that signs and symptoms have been present for 1 month and indicates a pain score of 0/10. MEDICAL/SURGICAL HISTORY: Stroke. Hepatitis C. Endocarditis. IV drug abuse. Kidney laceration. Bacterial arthritis of right hip. . Right proximal femur resection. COMPARISON: [facility] – [place], US VENOUS DOPPLER LEG RIGHT, 05/24/2018. . TECHNIQUE: Venous ultrasound of both lower extremities was performed from the inguinal ligament to t he proximal calf. Real-time, color Doppler and spectral tracing, compression and augmentation techni ques were used. FINDINGS: Normal compression of the deep venous system from the inguinal region to the proximal calf . No echogenic clot is seen. Normal response of the venous system to augmentation and respiration. CONCLUSION: 1. The study is negative for lower extremity deep venous thrombosis. Electronically signed by: Chaim Liz MD Board Certified Radiologist 06/18/2018 1:58 PM EST
[2018-06-19] MEDS: Morphine Sulfate Inj 2 MG/ML Vial IV.PUSH PRN ×4 (00:12→21:07)
[2018-06-19] MEDS: traZODone 50 MG Tablet PO PRN ×2 (00:13→21:07)
[2018-06-19] MEDS: ceFAZolin 2 GM Premix Inj 2 GM/50 ML PIGGYBACK IV.SIG SCH ×3 (05:01→20:18)
[2018-06-19] MEDS: Methadone 10 MG Tablet PO SCH (09:01)
[2018-06-19] MEDS: Ferrous Sulfate 325 MG Tablet PO SCH (09:02)
[2018-06-19] MEDS: Senna/Docusate Sodium 8.6/50 MG Tablet PO SCH ×2 (09:02→20:18)
[2018-06-19] MEDS: Enoxaparin Inj 40 MG/0.4 ML Syringe SQ SCH (09:03)
[2018-06-19] MEDS: Gabapentin 300 MG Capsule PO SCH ×3 (09:03→18:10)
[2018-06-19] MEDS: Hydrocortisone 2.5% Cream 30 GM Tube TOPICAL SCH ×2 (09:04→20:19)
--- NOTE | 2018-06-19 10:03 | P.PNFP ---
Subjective Interval history: Patient was seen and evaluated this morning. She reports improved right knee swelling; she denies pain. Patient notified that right LE US on 06/18/18 was negative for DVT. Patient denies chest pain, heart palpitations, shortness of breath, nausea/vomiting, diarrhea and constipation. She reports normal stool; she denies black or bloody stool. Discussed morphine taper. Patient prefers decreasing dosing by half rather than extending time between doses. Patient reports calling [employer] as well as a drug rehabilitation facility again yesterday. She was instructed by [employer] to complete an online application. She reports that [facility] (drug rehabilitation facility) is closed. She contacted [facility] and was told that [facility] has a student records coordinator, who should be able to assist her. She also received additional contact information for area drug rehabilitation facilities from Case Management and plans to call them today. All questions were answered. Results - Labs Result diagrams: 06/16/18 04:23 06/16/18 04:23 - Imaging Impressions Venous Doppler Study 06/18/18 00:00 CONCLUSION: 1. The study is negative for lower extremity deep venous thrombosis. Physical Exam Vital signs: Vital Signs 06/18/18 10:42 06/18/18 10:43 06/18/18 12:00 Temperature 97.8 F Pulse Rate 81 Respiratory Rate 20 20 17 Blood Pressure 99/61 L Pulse Oximetry 94 L 06/18/18 16:00 06/18/18 16:47 06/18/18 18:08 Temperature 97.7 F Pulse Rate 81 Respiratory Rate 17 20 20 Blood Pressure 96/55 L Pulse Oximetry 99 06/18/18 19:48 06/19/18 00:00 06/19/18 08:00 Temperature 97.6 F 98.1 F 98.8 F Pulse Rate 70 68 52 L Respiratory Rate 17 17 14 Blood Pressure 109/57 L 109/61 110/56 L Pulse Oximetry 97 100 99 Intake & Output 06/18/18 06/19/18 06/19/18 18:59 06:59 18:59 Intake Total 1850 / 1850 600 / 600 Balance 1850 / 1850 600 / 600 Weight 53.7 kg Intake: IV 50 / 50 100 / 100 Ancef 2 GM Premix Inj 2 gm In 50 / 50 100 / 100 50 ml @ 100 mls/hr IV.SIG Q8H [facility] Rx#:[id number] Oral 500 / 500 Oral Supplement 1800 / 1800 Other: # Voids 7 2 Date of Last Bowel Movement 06/17/18 # Bowel Movements 1 Narrative: GENERAL: female, sitting at bedside; in no acute distress. EYES: Pupils equal and round. No scleral icterus. No injection or drainage. CARDIOVASCULAR: Regular rate and rhythm, no murmurs, rubs, or gallops. RESPIRATORY: No accessory muscle use. Clear to auscultation. Breath sounds equal bilaterally. EXTREMITY: Left lateral hip incision healing well. Minimal swelling involving right knee joint. No tenderness upon palpation. NEUROLOGICAL: Awake and alert. Assessment and Plan - Assessment (1) Bacterial arthritis of right hip Code(s): M00.851 - Arthritis due to other bacteria, right hip Status: Acute Plan: Well healed incision. Patient ambulating well. Ancef (05/14 - 07/10). Follow labs while on IV Abx: weekly CBC, creatinine. Continue pain management: Methadone PO 30 mg daily, wean over long-term. Ibuprofen 800mg PO q8hr. Gabapentin 300mg PO TID. [place] 5/325 PRN Pain 4-6. Change morphine 2mg q4hr to q6hr PRN Pain 7-10. Plan to decrease morphine to 1mg q6hr PRN Pain 7-10 on 06/21/18. Hospital Course: S/p right proximal femur resection (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 Incision site closure with jimy. Jimy removed. Tissue culture from 05/16 negative for growth. PT following. (2) Anemia Code(s): D64.9 - Anemia, unspecified Status: Chronic Plan: Stable. Microcytic, likely secondary to iron deficiency. Continue daily ferrous sulfate. (3) Polysubstance abuse Code(s): F19.10 - Other psychoactive substance abuse, uncomplicated Status: Chronic Plan: Patient with history of IVDU (heroin, dilaudid, and other narcotics) and smoker. Continue methadone as above. Nicotine patches. Patient actively working on setting up outpatient treatment to start following discharge. Case management to help with outpatient placement. Likely obtained illicit drugs from another patient during this hospitalization; currently with visitor restrictions, mother and one sister may visit. (4) Cachexia Code(s): R64 - Cachexia Status: Chronic Plan: Gaining weight. (5) Hepatitis C Code(s): B19.20 - Unspecified viral hepatitis C without hepatic coma Status: Chronic Plan: Patient with history of hepatitis C. Will require outpatient f/u and treatment. (6) Swelling of knee joint, right Code(s): M25.461 - Effusion, right knee Status: Acute Plan: Improved. Right US LE negative for DVT. Monitor. (7) Nutrition, metabolism, and development symptoms Code(s): R63.8 - Other symptoms and signs concerning food and fluid intake Status: Acute Plan: Fluid: Tolerating PO. Diet: Regular with supplementation. Electrolytes: Monitor and replete as necessary.
[2018-06-20] MEDS: Morphine Sulfate Inj 2 MG/ML Vial IV.PUSH PRN ×3 (05:36→18:19)
[2018-06-20] MEDS: ceFAZolin 2 GM Premix Inj 2 GM/50 ML PIGGYBACK IV.SIG SCH ×3 (05:37→20:24)
[2018-06-20 06:38] LABS: Calcium 9.4 mg/dL (8.5-10.1); Carbon Dioxide 30.2 meq/L (21.0-32.0); Potassium 4.6 meq/L (3.5-5.1)
[2018-06-20 07:08] LABS: Baso # (Auto) 0.1 th/mm3 (0.0-0.2); Baso % (Auto) 1.3 % (0.0-2.0); Eos # (Auto) 0.2 th/mm3 (0.0-0.4); Eos % (Auto) 4.4 % (0.0-4.0); Hematocrit 34.6 % (35.0-46.0); Hemoglobin 11.1 gm/dL (11.6-15.3); Lymph # (Auto) 1.7 th/mm3 (1.0-4.8); Mean Corpuscular HGB Conc 32.1 % (32.0-36.0); Mean Corpuscular Hemoglobin 24.2 pg (27.0-34.0); Mean Corpuscular Volume 75.5 fL (80.0-100.0); Mean Platelet Volume 8.3 fL (7.0-11.0); Mono # (Auto) 0.6 th/mm3 (0.0-0.9); Mono % (Auto) 13.9 % (0.0-8.0); Neut # (Auto) 1.8 th/mm3 (1.8-7.7); Neut % (Auto) 40.4 % (16.0-70.0); Platelet Count 199 th/mm3 (150-450); Red Blood Count 4.58 mil/mm3 (4.00-5.30); Red Cell Distribution Width 24.8 % (11.6-17.2); White Blood Count 4.4 th/mm3 (4.0-11.0)
[2018-06-20] MEDS: Methadone 10 MG Tablet PO SCH (08:37)
[2018-06-20] MEDS: Enoxaparin Inj 40 MG/0.4 ML Syringe SQ SCH (08:37)
[2018-06-20] MEDS: Senna/Docusate Sodium 8.6/50 MG Tablet PO SCH ×2 (08:38→20:24)
[2018-06-20] MEDS: Gabapentin 300 MG Capsule PO SCH ×3 (08:38→17:16)
[2018-06-20] MEDS: Hydrocortisone 2.5% Cream 30 GM Tube TOPICAL SCH ×2 (08:39→20:24)
[2018-06-20] MEDS: Ferrous Sulfate 325 MG Tablet PO SCH (08:39)
--- NOTE | 2018-06-20 09:26 | P.PNFP ---
Subjective Interval history: Patient was seen and evaluated this morning. She reports feeling well; her knee swelling has resolved. Patient denies chest pain, heart palpitations, shortness of breath, nausea/vomiting, diarrhea and constipation. She reports normal but minimal stool; she denies black or bloody stool. Discussed morphine taper. Patient prefers decreasing dosing by half rather than extending time between doses. Patient was unable to complete Social Security application yesterday but will continue working on it today. Discussed that [facility] has a residential program for drug detox but not addiction management. She was provided with contact information to [facility] [employer] by case management. Patient is coming to the realization that in-patient treatment following hospital discharge is unlikely. All questions were answered. <Angeline Kirk - 06/20/18 09:25> Results - Labs Result diagrams: 06/20/18 06:00 06/20/18 06:00 <Abiodun Puente - 06/20/18 09:59> Abnormal lab results 06/20/18 06/20/18 Range/Units 06:00 06:00 Hgb 11.1 L (11.6-15.3) gm/dL Hct 34.6 L (35.0-46.0) % MCV 75.5 L (80.0-100.0) fL MCH 24.2 L (27.0-34.0) pg RDW 24.8 H (11.6-17.2) % [place] % (Auto) 13.9 H (0.0-8.0) % Eos % (Auto) 4.4 H (0.0-4.0) % BUN 26 H (7-18) mg/dL Estimated GFR 76 L (>89) mL/min Short CBC 06/20/18 Range/Units 06:00 WBC 4.4 (4.0-11.0) th/mm3 Hgb 11.1 L (11.6-15.3) gm/dL Hct 34.6 L (35.0-46.0) % Plt Count 199 (150-450) th/mm3 BMP 06/20/18 06:00 Sodium 139 Potassium 4.6 Chloride 104 Carbon Dioxide 30.2 BUN 26 H Creatinine 0.83 Calcium 9.4 <Abiodun Puente R - 06/20/18 09:59> Abnormal lab results 06/20/18 06/20/18 Range/Units 06:00 06:00 Hgb 11.1 L (11.6-15.3) gm/dL Hct 34.6 L (35.0-46.0) % MCV 75.5 L (80.0-100.0) fL MCH 24.2 L (27.0-34.0) pg RDW 24.8 H (11.6-17.2) % [place] % (Auto) 13.9 H (0.0-8.0) % Eos % (Auto) 4.4 H (0.0-4.0) % BUN 26 H (7-18) mg/dL Estimated GFR 76 L (>89) mL/min Short CBC 06/20/18 Range/Units 06:00 WBC 4.4 (4.0-11.0) th/mm3 Hgb 11.1 L (11.6-15.3) gm/dL Hct 34.6 L (35.0-46.0) % Plt Count 199 (150-450) th/mm3 BMP 06/20/18 06:00 Sodium 139 Potassium 4.6 Chloride 104 Carbon Dioxide 30.2 BUN 26 H Creatinine 0.83 Calcium 9.4 <Labell R2,Angeline - 06/20/18 09:25> Physical Exam Vital signs: Vital Signs 06/19/18 12:00 06/19/18 15:51 06/19/18 20:00 Temperature 98 F 97.5 F L 98.1 F Pulse Rate 75 73 65 Respiratory Rate 18 20 18 Blood Pressure 123/56 L 139/63 103/50 L Pulse Oximetry 98 100 92 L 06/20/18 00:00 06/20/18 08:15 Temperature 97.9 F 97.9 F Pulse Rate 68 65 Respiratory Rate 18 17 Blood Pressure 92/52 L 108/61 Pulse Oximetry 92 L 99 Intake & Output 06/19/18 06/20/18 06/20/18 18:59 06:59 18:59 Intake Total 1090 / 1090 100 / 100 Balance 1090 / 1090 100 / 100 Weight 54.3 kg Intake: IV 50 / 50 100 / 100 Ancef 2 GM Premix Inj 2 gm In 50 / 50 100 / 100 50 ml @ 100 mls/hr IV.SIG Q8H [facility] Rx#:[id number] Oral 1040 / 1040 Other: # Voids 4 3 Date of Last Bowel Movement 06/17/18 06/17/18 # Bowel Movements 2 <JacobroelAbiodun garner R - 06/20/18 09:59> Vital Signs 06/19/18 12:00 06/19/18 15:51 06/19/18 20:00 Temperature 98 F 97.5 F L 98.1 F Pulse Rate 75 73 65 Respiratory Rate 18 20 18 Blood Pressure 123/56 L 139/63 103/50 L Pulse Oximetry 98 100 92 L 06/20/18 00:00 06/20/18 08:15 Temperature 97.9 F 97.9 F Pulse Rate 68 65 Respiratory Rate 18 17 Blood Pressure 92/52 L 108/61 Pulse Oximetry 92 L 99 Intake & Output 06/19/18 06/20/18 06/20/18 18:59 06:59 18:59 Intake Total 1090 / 1090 100 / 100 Balance 1090 / 1090 100 / 100 Weight 54.3 kg Intake: IV 50 / 50 100 / 100 Ancef 2 GM Premix Inj 2 gm In 50 / 50 100 / 100 50 ml @ 100 mls/hr IV.SIG Q8H [facility] Rx#:[id number] Oral 1040 / 1040 Other: # Voids 4 3 Date of Last Bowel Movement 06/17/18 06/17/18 # Bowel Movements 2 <Debol Raysa Jaquezin - 06/20/18 09:25> Narrative: GENERAL: female, sitting at bedside; in no acute distress. EYES: Pupils equal and round. No scleral icterus. No injection or drainage. CARDIOVASCULAR: Regular rate and rhythm, no murmurs, rubs, or gallops. RESPIRATORY: No accessory muscle use. Clear to auscultation. Breath sounds equal bilaterally. EXTREMITY: Left lateral hip incision healing well. NEUROLOGICAL: Awake and alert. <Labell Angeline Jaquez - 06/20/18 09:25> Assessment and Plan - Assessment (1) Bacterial arthritis of right hip Code(s): M00.851 - Arthritis due to other bacteria, right hip Status: Acute (2) Anemia Code(s): D64.9 - Anemia, unspecified Status: Chronic (3) Polysubstance abuse Code(s): F19.10 - Other psychoactive substance abuse, uncomplicated Status: Chronic (4) Cachexia Code(s): R64 - Cachexia Status: Chronic (5) Hepatitis C Code(s): B19.20 - Unspecified viral hepatitis C without hepatic coma Status: Chronic (6) Swelling of knee joint, right Code(s): M25.461 - Effusion, right knee Status: Resolved (7) Nutrition, metabolism, and development symptoms Code(s): R63.8 - Other symptoms and signs concerning food and fluid intake Status: Acute <Abiodun Puente R - 06/20/18 09:59> (1) Bacterial arthritis of right hip Code(s): M00.851 - Arthritis due to other bacteria, right hip Status: Acute Plan: Well healed incision. Patient ambulating well. Ancef (05/14 - 07/10). Follow labs while on IV Abx: weekly CBC, creatinine. Continue pain management: Methadone PO 30 mg daily, wean over long-term. Ibuprofen 800mg PO q8hr. Gabapentin 300mg PO TID. [place] 5/325 PRN Pain 4-6. Change morphine 2mg q6hr to 1mg q6hr PRN Pain 7-10. Hospital Course: S/p right proximal femur resection (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 Incision site closure with jimy. Jimy removed. Tissue culture from 05/16 negative for growth. PT following. (2) Anemia Code(s): D64.9 - Anemia, unspecified Status: Chronic Plan: Stable. Microcytic, likely secondary to iron deficiency. Continue daily ferrous sulfate. (3) Polysubstance abuse Code(s): F19.10 - Other psychoactive substance abuse, uncomplicated Status: Chronic Plan: Patient with history of IVDU (heroin, dilaudid, and other narcotics) and smoker. Continue methadone as above. Nicotine patches. Patient actively working on setting up outpatient treatment to start following discharge. Case management to help with outpatient placement. Likely obtained illicit drugs from another patient during this hospitalization; currently with visitor restrictions, mother and one sister may visit. (4) Cachexia Code(s): R64 - Cachexia Status: Chronic Plan: Gaining weight. (5) Hepatitis C Code(s): B19.20 - Unspecified viral hepatitis C without hepatic coma Status: Chronic Plan: Patient with history of hepatitis C. Will require outpatient f/u and treatment. (6) Swelling of knee joint, right Code(s): M25.461 - Effusion, right knee Status: Resolved Plan: Resolved. Right US LE negative for DVT. Monitor. (7) Nutrition, metabolism, and development symptoms Code(s): R63.8 - Other symptoms and signs concerning food and fluid intake Status: Acute Plan: Fluid: Tolerating PO. Diet: Regular with supplementation. Electrolytes: Monitor and replete as necessary. <Angeline Kirk - 06/20/18 09:15> - Attending Attestation This patient was seen and evaluated with the resident physician. I agree with the plan of care as discussed with me and documented in the resident note. Abiodun Puente MD <Abiodun Puente - 06/20/18 09:59>
[2018-06-20] MEDS ORDERED: Polyethylene Glycol 3350 17 GM Packet PO ONE (11:30)
[2018-06-21] MEDS: Morphine Sulfate Inj 2 MG/ML Vial IV.PUSH PRN ×4 (00:20→18:47)
[2018-06-21] MEDS: traZODone 50 MG Tablet PO PRN (00:20)
[2018-06-21] MEDS: ceFAZolin 2 GM Premix Inj 2 GM/50 ML PIGGYBACK IV.SIG SCH ×3 (05:06→20:35)
[2018-06-21] MEDS: Methadone 10 MG Tablet PO SCH (09:52)
[2018-06-21] MEDS: Gabapentin 300 MG Capsule PO SCH ×3 (09:53→17:38)
[2018-06-21] MEDS: Senna/Docusate Sodium 8.6/50 MG Tablet PO SCH ×2 (09:53→20:35)
[2018-06-21] MEDS: Ferrous Sulfate 325 MG Tablet PO SCH (09:53)
[2018-06-21] MEDS: Enoxaparin Inj 40 MG/0.4 ML Syringe SQ SCH (09:53)
[2018-06-21] MEDS: Hydrocortisone 2.5% Cream 30 GM Tube TOPICAL SCH ×2 (09:54→20:35)
--- NOTE | 2018-06-21 11:54 | P.PNFP ---
Subjective Interval history: Patient seen and examined at bedside today. She was able to go outside yesterday which she really enjoyed. She is still working on her Social Security paperwork. She is a bit frustrated about the unlikelihood that she will be going to an inpatient rehab facility after she is discharged. She realizes that she will have to go to NA meetings and work a 12-step program. She denies any chest pain, heart palpitations, shortness of breath, nausea, abdominal pain. She feels constipated but she is passing gas and having bowel movements. <Brenda Busch A - 06/21/18 12:51> Results - Labs Result diagrams: 06/20/18 06:00 06/20/18 06:00 <Abiodun Puente R - 06/24/18 09:31> Abnormal lab results 06/23/18 Range/Units 09:14 Ur Leukocyte Esterase Trace H (Negative) Urine WBC 8 H (0-5) /hpf Urine Mucus Few H (Occasional) /lpf Urine 06/23/18 Range/Units 09:14 Urine Color Yellow (Yellw/Straw) Urine Clarity Clear (Clear) Urine pH 6.0 (5.0-8.5) Ur Specific [place] 1.021 (1.002-1.035) Urine Protein Negative (Neg-Trace) mg/dL Urine Glucose (UA) Negative (Negative) mg/dL <Abiodun Puente R - 06/24/18 09:31> Physical Exam Vital signs: Vital Signs 06/23/18 12:00 06/23/18 16:00 06/23/18 20:00 Temperature 97.9 F 98.2 F 97.9 F Pulse Rate 100 H 82 63 Respiratory Rate 16 16 16 Blood Pressure 109/71 108/57 L 105/54 L Pulse Oximetry 96 94 L 96 06/24/18 00:00 06/24/18 08:00 Temperature 98.3 F 97.6 F Pulse Rate 70 60 Respiratory Rate 18 19 Blood Pressure 120/59 L 102/60 Pulse Oximetry 98 96 Intake & Output 06/23/18 06/24/18 06/24/18 18:59 06:59 18:59 Intake Total 940 / 940 100 / 100 Balance 940 / 940 100 / 100 Weight 54.6 kg Intake: IV 100 / 100 100 / 100 Ancef 2 GM Premix Inj 2 gm In 100 / 100 100 / 100 50 ml @ 100 mls/hr IV.SIG Q8H [facility] Rx#:[id number] Oral 840 / 840 Other: # Voids 3 2 Date of Last Bowel Movement 06/23/18 # Bowel Movements 0 <Abiodun Puente R - 06/24/18 09:31> Vital Signs 06/20/18 12:19 06/20/18 16:30 06/20/18 19:00 Temperature 98.8 F 98.2 F Pulse Rate 78 78 Respiratory Rate 18 18 18 Blood Pressure 112/70 109/58 L Pulse Oximetry 98 98 06/20/18 20:00 06/20/18 23:26 06/21/18 00:00 Temperature 98.0 F 98.3 F Pulse Rate 73 70 Respiratory Rate 18 18 18 Blood Pressure 119/61 108/53 L Pulse Oximetry 93 L 97 06/21/18 00:22 06/21/18 06:35 06/21/18 07:03 Temperature Pulse Rate Respiratory Rate 18 18 17 Blood Pressure Pulse Oximetry 06/21/18 08:00 Temperature 97.6 F Pulse Rate 67 Respiratory Rate 18 Blood Pressure 108/60 Pulse Oximetry 95 Intake & Output 06/20/18 06/21/18 06/21/18 18:59 06:59 18:59 Intake Total 50 / 50 100 / 100 Balance 50 / 50 100 / 100 Weight 54.4 kg Intake: IV 50 / 50 100 / 100 Ancef 2 GM Premix Inj 2 gm In 50 / 50 100 / 100 50 ml @ 100 mls/hr IV.SIG Q8H [facility] Rx#:[id number] Other: # Voids 4 3 Date of Last Bowel Movement 06/19/18 06/20/18 06/20/18 # Bowel Movements 1 2 <Brenda Busch - 06/21/18 11:54> Narrative: GENERAL: female, sitting at bedside; in no acute distress. EYES: Pupils equal and round. No scleral icterus. No injection or drainage. CARDIOVASCULAR: Regular rate and rhythm, no murmurs, rubs, or gallops. RESPIRATORY: No accessory muscle use. Clear to auscultation. Breath sounds equal bilaterally. EXTREMITY: Left lateral hip incision healing well. NEUROLOGICAL: Awake and alert. <Brenda Busch - 06/21/18 12:51> Assessment and Plan - Assessment (1) Bacterial arthritis of right hip Code(s): M00.851 - Arthritis due to other bacteria, right hip Status: Acute (2) Anemia Code(s): D64.9 - Anemia, unspecified Status: Chronic (3) Polysubstance abuse Code(s): F19.10 - Other psychoactive substance abuse, uncomplicated Status: Chronic (4) Cachexia Code(s): R64 - Cachexia Status: Chronic (5) Hepatitis C Code(s): B19.20 - Unspecified viral hepatitis C without hepatic coma Status: Chronic (6) Nutrition, metabolism, and development symptoms Code(s): R63.8 - Other symptoms and signs concerning food and fluid intake Status: Acute <Abiodun Puente - 06/24/18 09:31> (1) Bacterial arthritis of right hip Code(s): M00.851 - Arthritis due to other bacteria, right hip Status: Acute Plan: Well healed incision. Patient ambulating well. Ancef (05/14 - 07/10). Follow labs while on IV Abx: weekly CBC, creatinine. Next lab draw- June 27 Continue pain management: Methadone PO 30 mg daily, wean over long-term. Ibuprofen 800mg PO q8hr. Gabapentin 300mg PO TID. [place] 5/325 PRN Pain 4-6. Continue morphine 1mg q6hr PRN Pain 7-10. Hospital Course: S/p right proximal femur resection (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 Incision site closure with jimy. Jimy removed. Tissue culture from 05/16 negative for growth. PT following. (2) Urinary urgency (3) Anemia Code(s): D64.9 - Anemia, unspecified Status: Chronic Plan: Stable. Microcytic, likely secondary to iron deficiency. Continue daily ferrous sulfate. (4) Polysubstance abuse Code(s): F19.10 - Other psychoactive substance abuse, uncomplicated Status: Chronic Plan: Patient with history of IVDU (heroin, dilaudid, and other narcotics) and smoker. Continue methadone as above. Nicotine patches. Patient actively working on setting up outpatient treatment to start following discharge. Case management to help with outpatient placement. Likely obtained illicit drugs from another patient during this hospitalization; currently with visitor restrictions, mother and one sister may visit. (5) Cachexia Code(s): R64 - Cachexia Status: Chronic Plan: Gaining weight. (6) Hepatitis C Code(s): B19.20 - Unspecified viral hepatitis C without hepatic coma Status: Chronic Plan: Patient with history of hepatitis C. Will require outpatient f/u and treatment. (7) Swelling of knee joint, right Code(s): M25.461 - Effusion, right knee Status: Resolved Plan: Resolved. Right US LE negative for DVT. Monitor. (8) Nutrition, metabolism, and development symptoms Code(s): R63.8 - Other symptoms and signs concerning food and fluid intake Status: Acute Plan: Fluid: Tolerating PO. Diet: Regular with supplementation. Electrolytes: Monitor and replete as necessary. <Brenda Busch 06/21/18 12:42> - Assessment and Plan Discussed Condition With: Dr. Puente, Dr. Weber, Dr. Espinoza <Brenda Busch 06/21/18 12:51> - Attending Attestation This patient was seen and evaluated with the resident physician. I agree with the plan of care as discussed with me and documented in the resident note. Abiodun Puente MD <Abiodun Puente 06/24/18 09:31>
[2018-06-22] MEDS: traZODone 50 MG Tablet PO PRN ×2 (00:55→22:26)
[2018-06-22] MEDS: Morphine Sulfate Inj 2 MG/ML Vial IV.PUSH PRN ×4 (00:55→22:27)
[2018-06-22] MEDS: ceFAZolin 2 GM Premix Inj 2 GM/50 ML PIGGYBACK IV.SIG SCH ×3 (05:14→20:30)
[2018-06-22] MEDS: Hydrocortisone 2.5% Cream 30 GM Tube TOPICAL SCH ×2 (08:49→20:30)
[2018-06-22] MEDS: Ferrous Sulfate 325 MG Tablet PO SCH (08:55)
[2018-06-22] MEDS: Senna/Docusate Sodium 8.6/50 MG Tablet PO SCH ×2 (08:55→20:31)
[2018-06-22] MEDS: Enoxaparin Inj 40 MG/0.4 ML Syringe SQ SCH (08:55)
[2018-06-22] MEDS: Methadone 10 MG Tablet PO SCH (08:56)
[2018-06-22] MEDS: Gabapentin 300 MG Capsule PO SCH ×3 (08:57→17:46)
--- NOTE | 2018-06-22 11:32 | P.PNFP ---
Subjective Interval history: Patient was seen and evaluated this morning. She is feeling well. She denies chest pain, shortness of breath, nausea/vomiting, diarrhea and constipation. She does however note that her bowel movements, while daily, are small in size. Patient walked four laps on the floor yesterday. All questions were answered. <Angeline Kirk - 06/22/18 11:32> Results - Labs Result diagrams: 06/20/18 06:00 06/20/18 06:00 <Abiodun Puente - 06/24/18 09:47> Abnormal lab results 06/23/18 Range/Units 09:14 Ur Leukocyte Esterase Trace H (Negative) Urine WBC 8 H (0-5) /hpf Urine Mucus Few H (Occasional) /lpf Urine 06/23/18 Range/Units 09:14 Urine Color Yellow (Yellw/Straw) Urine Clarity Clear (Clear) Urine pH 6.0 (5.0-8.5) Ur Specific [place] 1.021 (1.002-1.035) Urine Protein Negative (Neg-Trace) mg/dL Urine Glucose (UA) Negative (Negative) mg/dL <Abiodun Puente R - 06/24/18 09:47> Physical Exam Vital signs: Vital Signs 06/23/18 12:00 06/23/18 16:00 06/23/18 20:00 Temperature 97.9 F 98.2 F 97.9 F Pulse Rate 100 H 82 63 Respiratory Rate 16 16 16 Blood Pressure 109/71 108/57 L 105/54 L Pulse Oximetry 96 94 L 96 06/24/18 00:00 06/24/18 08:00 Temperature 98.3 F 97.6 F Pulse Rate 70 60 Respiratory Rate 18 19 Blood Pressure 120/59 L 102/60 Pulse Oximetry 98 96 Intake & Output 06/23/18 06/24/18 06/24/18 18:59 06:59 18:59 Intake Total 940 / 940 100 / 100 Balance 940 / 940 100 / 100 Weight 54.6 kg Intake: IV 100 / 100 100 / 100 Ancef 2 GM Premix Inj 2 gm In 100 / 100 100 / 100 50 ml @ 100 mls/hr IV.SIG Q8H RENU Rx#:[id number] Oral 840 / 840 Other: # Voids 3 2 Date of Last Bowel Movement 06/23/18 # Bowel Movements 0 <Abiodun Puente R - 06/24/18 09:47> Vital Signs 06/21/18 12:00 06/21/18 16:00 06/21/18 20:00 Temperature 97.7 F 97.6 F 97.9 F Pulse Rate 77 87 71 Respiratory Rate 19 18 18 Blood Pressure 121/60 105/70 120/59 L Pulse Oximetry 98 97 99 06/21/18 23:23 06/22/18 00:00 06/22/18 00:57 Temperature 97.5 F L Pulse Rate 75 Respiratory Rate 18 18 18 Blood Pressure 99/57 L Pulse Oximetry 98 06/22/18 08:00 06/22/18 10:14 Temperature 97.9 F Pulse Rate 58 L Respiratory Rate 16 16 Blood Pressure 106/58 L Pulse Oximetry 99 Intake & Output 06/21/18 06/22/18 06/22/18 18:59 06:59 18:59 Intake Total 1450 / 1450 320 / 320 Balance 1450 / 1450 320 / 320 Weight 58.1 kg Intake: IV 50 / 50 100 / 100 Ancef 2 GM Premix Inj 2 gm In 50 / 50 100 / 100 50 ml @ 100 mls/hr IV.SIG Q8H RENU Rx#:[id number] Oral 1400 / 1400 220 / 220 Other: # Voids 5 3 Date of Last Bowel Movement 06/20/18 06/20/18 06/21/18 # Bowel Movements 1 <Debotc Angeline Jaquez - 06/22/18 11:32> Narrative: GENERAL: female, laying in bed, eating breakfast; in no acute distress. EYES: Pupils equal and round. No scleral icterus. No injection or drainage. CARDIOVASCULAR: Regular rate and rhythm, no murmurs, rubs, or gallops. RESPIRATORY: No accessory muscle use. Clear to auscultation. Breath sounds equal bilaterally. EXTREMITY: Left lateral hip incision healing well. NEUROLOGICAL: Awake and alert. <Alexis Angeline Jaquez - 06/22/18 11:32> Assessment and Plan - Assessment (1) Bacterial arthritis of right hip Code(s): M00.851 - Arthritis due to other bacteria, right hip Status: Acute (2) Anemia Code(s): D64.9 - Anemia, unspecified Status: Chronic (3) Polysubstance abuse Code(s): F19.10 - Other psychoactive substance abuse, uncomplicated Status: Chronic (4) Cachexia Code(s): R64 - Cachexia Status: Chronic (5) Hepatitis C Code(s): B19.20 - Unspecified viral hepatitis C without hepatic coma Status: Chronic (6) Nutrition, metabolism, and development symptoms Code(s): R63.8 - Other symptoms and signs concerning food and fluid intake Status: Acute <Abiodun Puente R - 06/24/18 09:47> (1) Bacterial arthritis of right hip Code(s): M00.851 - Arthritis due to other bacteria, right hip Status: Acute Plan: Well healed incision. Patient ambulating well. Ancef (05/14 - 07/10). Follow labs while on IV Abx: weekly CBC, creatinine. Next lab draw- June 27 Continue pain management: Methadone PO 30 mg daily, wean over long-term. Ibuprofen 800mg PO q8hr. Gabapentin 300mg PO TID. [place] 5/325 PRN Pain 4-6. Continue morphine 1mg q6hr PRN Pain 7-10. Hospital Course: S/p right proximal femur resection (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 Incision site closure with eh. [place] removed. Tissue culture from 05/16 negative for growth. PT following. (2) Anemia Code(s): D64.9 - Anemia, unspecified Status: Chronic Plan: Stable. Microcytic, likely secondary to iron deficiency. Continue daily ferrous sulfate. (3) Polysubstance abuse Code(s): F19.10 - Other psychoactive substance abuse, uncomplicated Status: Chronic Plan: Patient with history of IVDU (heroin, dilaudid, and other narcotics) and smoker. Continue methadone as above. Nicotine patches. Patient actively working on setting up outpatient treatment to start following discharge. Case management to help with outpatient placement. Likely obtained illicit drugs from another patient during this hospitalization; currently with visitor restrictions, mother and one sister may visit. (4) Cachexia Code(s): R64 - Cachexia Status: Chronic Plan: Gaining weight. (5) Hepatitis C Code(s): B19.20 - Unspecified viral hepatitis C without hepatic coma Status: Chronic Plan: Patient with history of hepatitis C. Will require outpatient f/u and treatment. (6) Swelling of knee joint, right Code(s): M25.461 - Effusion, right knee Status: Resolved Plan: Resolved. Right US LE negative for DVT. Monitor. (7) Nutrition, metabolism, and development symptoms Code(s): R63.8 - Other symptoms and signs concerning food and fluid intake Status: Acute Plan: Fluid: Tolerating PO. Diet: Regular with supplementation. Electrolytes: Monitor and replete as necessary. <Angeline Kirk - 06/22/18 11:29> - Attending Attestation This patient was seen and evaluated with the resident physician. I agree with the plan of care as discussed with me and documented in the resident note. Abiodun Puente MD <Abiodun Puente - 06/24/18 09:47>
[2018-06-23] MEDS: ceFAZolin 2 GM Premix Inj 2 GM/50 ML PIGGYBACK IV.SIG SCH ×3 (06:02→22:04)
[2018-06-23] MEDS: Morphine Sulfate Inj 2 MG/ML Vial IV.PUSH PRN ×3 (06:38→18:40)
--- NOTE | 2018-06-23 07:59 | P.PNFP ---
Subjective Interval history: Patient seen and examined at bedside this morning. She reports some increased irritability. She attributes this to decrease morphine dose. I explained to her that she is making good progress and to keep moving forward. She has some urinary urgency. She reports that sometimes she is not able to get out of bed quick enough to make it to the restroom. She has urinated on herself 2 times. She denies any dysuria, hematuria. She denies any chest pain, shortness of breath, abdominal pain, leg swelling. Her constipation has improved as she had a large bowel movement yesterday. <Areli JacobsonBrenda A - 06/23/18 09:40> Results - Labs Result diagrams: 06/20/18 06:00 06/20/18 06:00 <Abiodun Puente R - 06/24/18 09:56> Abnormal lab results 06/23/18 Range/Units 09:14 Ur Leukocyte Esterase Trace H (Negative) Urine WBC 8 H (0-5) /hpf Urine Mucus Few H (Occasional) /lpf Urine 06/23/18 Range/Units 09:14 Urine Color Yellow (Yellw/Straw) Urine Clarity Clear (Clear) Urine pH 6.0 (5.0-8.5) Ur Specific [place] 1.021 (1.002-1.035) Urine Protein Negative (Neg-Trace) mg/dL Urine Glucose (UA) Negative (Negative) mg/dL <Abiodun Puente - 06/24/18 09:56> Physical Exam Vital signs: Vital Signs 06/23/18 12:00 06/23/18 16:00 06/23/18 20:00 Temperature 97.9 F 98.2 F 97.9 F Pulse Rate 100 H 82 63 Respiratory Rate 16 16 16 Blood Pressure 109/71 108/57 L 105/54 L Pulse Oximetry 96 94 L 96 06/24/18 00:00 06/24/18 08:00 Temperature 98.3 F 97.6 F Pulse Rate 70 60 Respiratory Rate 18 19 Blood Pressure 120/59 L 102/60 Pulse Oximetry 98 96 Intake & Output 06/23/18 06/24/18 06/24/18 18:59 06:59 18:59 Intake Total 940 / 940 100 / 100 Balance 940 / 940 100 / 100 Weight 54.6 kg Intake: IV 100 / 100 100 / 100 Ancef 2 GM Premix Inj 2 gm In 100 / 100 100 / 100 50 ml @ 100 mls/hr IV.SIG Q8H RENU Rx#:[id number] Oral 840 / 840 Other: # Voids 3 2 Date of Last Bowel Movement 06/23/18 # Bowel Movements 0 <Abiodun Puente R - 06/24/18 09:56> Vital Signs 06/22/18 08:00 06/22/18 10:14 06/22/18 12:00 Temperature 97.9 F 98.4 F Pulse Rate 58 L 97 H Respiratory Rate 16 16 17 Blood Pressure 106/58 L 99/62 L Pulse Oximetry 99 97 06/22/18 16:00 06/22/18 20:00 06/22/18 22:29 Temperature 97.9 F 98.3 F Pulse Rate 75 77 Respiratory Rate 17 18 18 Blood Pressure 107/52 L 104/52 L Pulse Oximetry 97 98 06/22/18 22:56 06/23/18 00:00 Temperature 98.2 F Pulse Rate 65 Respiratory Rate 18 18 Blood Pressure 92/52 L Pulse Oximetry 97 Intake & Output 06/22/18 06/23/18 06/23/18 18:59 06:59 18:59 Intake Total 770 / 770 50 / 50 Balance 770 / 770 50 / 50 Weight 53.5 kg Intake: IV 50 / 50 50 / 50 Ancef 2 GM Premix Inj 2 gm In 50 / 50 50 / 50 50 ml @ 100 mls/hr IV.SIG Q8H RENU Rx#:[id number] Oral 720 / 720 Other: # Voids 3 2 Date of Last Bowel Movement 06/22/18 06/22/18 # Bowel Movements 1 <Brenda Busch - 06/23/18 07:59> Narrative: GENERAL: female, laying in bed, in no acute distress. EYES: Pupils equal and round. No scleral icterus. No injection or drainage. CARDIOVASCULAR: Regular rate and rhythm, no murmurs, rubs, or gallops. RESPIRATORY: No accessory muscle use. Clear to auscultation. Breath sounds equal bilaterally. EXTREMITY: Left lateral hip incision healing well. NEUROLOGICAL: Awake and alert. <Brenda Busch - 06/23/18 09:40> Assessment and Plan - Assessment (1) Bacterial arthritis of right hip Code(s): M00.851 - Arthritis due to other bacteria, right hip Status: Acute (2) Anemia Code(s): D64.9 - Anemia, unspecified Status: Chronic (3) Polysubstance abuse Code(s): F19.10 - Other psychoactive substance abuse, uncomplicated Status: Chronic (4) Cachexia Code(s): R64 - Cachexia Status: Chronic (5) Hepatitis C Code(s): B19.20 - Unspecified viral hepatitis C without hepatic coma Status: Chronic (6) Nutrition, metabolism, and development symptoms Code(s): R63.8 - Other symptoms and signs concerning food and fluid intake Status: Acute <Abiodun Puente - 06/24/18 09:56> (1) Bacterial arthritis of right hip Code(s): M00.851 - Arthritis due to other bacteria, right hip Status: Acute Plan: Well healed incision. Patient ambulating well. Ancef (05/14 - 07/10). Follow labs while on IV Abx: weekly CBC, creatinine. Next lab draw- June 27 Continue pain management: Methadone PO 30 mg daily, wean over long-term. Ibuprofen 800mg PO q8hr. Gabapentin 300mg PO TID. Continue morphine 1mg q6hr PRN Pain 7-10. Hospital Course: S/p right proximal femur resection (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 Incision site closure with jimy. [place] removed. Tissue culture from 05/16 negative for growth. PT following. (2) Urinary urgency Code(s): R39.15 - Urgency of urination Status: Acute Plan: -UA and reflex culture -Discussed with the patient about schedule voiding because it does take her a bit of time to get out of bed due to her decreased mobility. (3) Anemia Code(s): D64.9 - Anemia, unspecified Status: Chronic Plan: Stable. Microcytic, likely secondary to iron deficiency. Continue daily ferrous sulfate. (4) Polysubstance abuse Code(s): F19.10 - Other psychoactive substance abuse, uncomplicated Status: Chronic Plan: Patient with history of IVDU (heroin, dilaudid, and other narcotics) and smoker. Continue methadone as above. Nicotine patches. Patient actively working on setting up outpatient treatment to start following discharge. Case management to help with outpatient placement. Likely obtained illicit drugs from another patient during this hospitalization; currently with visitor restrictions, mother and one sister may visit. (5) Cachexia Code(s): R64 - Cachexia Status: Chronic Plan: Gaining weight. (6) Hepatitis C Code(s): B19.20 - Unspecified viral hepatitis C without hepatic coma Status: Chronic Plan: Patient with history of hepatitis C. Will require outpatient f/u and treatment. (7) Swelling of knee joint, right Code(s): M25.461 - Effusion, right knee Status: Resolved Plan: Resolved. Right US LE negative for DVT. Monitor. (8) Nutrition, metabolism, and development symptoms Code(s): R63.8 - Other symptoms and signs concerning food and fluid intake Status: Acute Plan: Fluid: Tolerating PO. Diet: Regular with supplementation. Electrolytes: Monitor and replete as necessary. <Brenda Busch - 06/23/18 09:38> - Attending Attestation This patient was seen and evaluated with the resident physician. I agree with the plan of care as discussed with me and documented in the resident note. Abiodun Puente MD <Abiodun Puente - 06/24/18 09:56>
[2018-06-23] MEDS: Enoxaparin Inj 40 MG/0.4 ML Syringe SQ SCH (08:37)
[2018-06-23] MEDS: Gabapentin 300 MG Capsule PO SCH ×3 (08:37→18:43)
[2018-06-23] MEDS: Methadone 10 MG Tablet PO SCH (08:37)
[2018-06-23] MEDS: Ferrous Sulfate 325 MG Tablet PO SCH (08:37)
[2018-06-23] MEDS: Senna/Docusate Sodium 8.6/50 MG Tablet PO SCH ×2 (08:37→22:04)
[2018-06-23] MEDS: Hydrocortisone 2.5% Cream 30 GM Tube TOPICAL SCH ×2 (08:38→22:05)
[2018-06-23 12:58] LABS: Bilirubin,Urine Negative (Negative); Clarity,Urine Clear (Clear); Color,Urine Yellow (Yellw/Straw); Glucose,Urine (UA) Negative (Negative); Leukocyte Esterase,Urine Trace (Negative); Mucus,Urine Few /lpf (Occasional); Nitrite,Urine Negative (Negative); Specific Gravity,Urine 1.021 (1.002-1.035); Squamous Epithelial Cell,Urine 2 /hpf (0-5)
[2018-06-24] MEDS: Morphine Sulfate Inj 2 MG/ML Vial IV.PUSH PRN ×4 (00:34→18:20)
[2018-06-24] MEDS: traZODone 50 MG Tablet PO PRN (01:49)
[2018-06-24] MEDS: ceFAZolin 2 GM Premix Inj 2 GM/50 ML PIGGYBACK IV.SIG SCH ×3 (06:12→23:04)
--- NOTE | 2018-06-24 09:15 | P.PNFP ---
Subjective Interval history: Patient was seen and evaluated this morning. She is feeling well but reports easy irritability, which she believes are withdrawal symptoms. Patient denies chest pain, shortness of breath, nausea, vomiting, diarrhea and constipation. Patient's mom and sister scheduled to visit today. She has given her mom a list of snacks she'd like her to bring. All questions were answered. <Alexis Raysa Jaquezin - 06/24/18 09:15> Results - Labs Result diagrams: 06/20/18 06:00 06/20/18 06:00 <Abiodun Puente - 06/24/18 12:38> Abnormal lab results 06/23/18 Range/Units 09:14 Ur Leukocyte Esterase Trace H (Negative) Urine WBC 8 H (0-5) /hpf Urine Mucus Few H (Occasional) /lpf Urine 06/23/18 Range/Units 09:14 Urine Color Yellow (Yellw/Straw) Urine Clarity Clear (Clear) Urine pH 6.0 (5.0-8.5) Ur Specific [place] 1.021 (1.002-1.035) Urine Protein Negative (Neg-Trace) mg/dL Urine Glucose (UA) Negative (Negative) mg/dL <Abiodun Puente - 06/24/18 12:38> Abnormal lab results 06/23/18 Range/Units 09:14 Ur Leukocyte Esterase Trace H (Negative) Urine WBC 8 H (0-5) /hpf Urine Mucus Few H (Occasional) /lpf Urine 06/23/18 Range/Units 09:14 Urine Color Yellow (Yellw/Straw) Urine Clarity Clear (Clear) Urine pH 6.0 (5.0-8.5) Ur Specific [place] 1.021 (1.002-1.035) Urine Protein Negative (Neg-Trace) mg/dL Urine Glucose (UA) Negative (Negative) mg/dL <Alexis Angeline Jaquez - 06/24/18 09:15> Physical Exam Vital signs: Vital Signs 06/23/18 16:00 06/23/18 20:00 06/24/18 00:00 Temperature 98.2 F 97.9 F 98.3 F Pulse Rate 82 63 70 Respiratory Rate 16 16 18 Blood Pressure 108/57 L 105/54 L 120/59 L Pulse Oximetry 94 L 96 98 06/24/18 08:00 06/24/18 12:00 Temperature 97.6 F 98.4 F Pulse Rate 60 72 Respiratory Rate 19 17 Blood Pressure 102/60 105/64 Pulse Oximetry 96 99 Intake & Output 06/23/18 06/24/18 06/24/18 18:59 06:59 18:59 Intake Total 940 / 940 100 / 100 Balance 940 / 940 100 / 100 Weight 54.6 kg Intake: IV 100 / 100 100 / 100 Ancef 2 GM Premix Inj 2 gm In 100 / 100 100 / 100 50 ml @ 100 mls/hr IV.SIG Q8H RENU Rx#:[id number] Oral 840 / 840 Other: # Voids 3 2 Date of Last Bowel Movement 06/23/18 # Bowel Movements 0 <Abiodun Puente - 06/24/18 12:38> Vital Signs 06/23/18 12:00 06/23/18 16:00 06/23/18 20:00 Temperature 97.9 F 98.2 F 97.9 F Pulse Rate 100 H 82 63 Respiratory Rate 16 16 16 Blood Pressure 109/71 108/57 L 105/54 L Pulse Oximetry 96 94 L 96 06/24/18 00:00 06/24/18 08:00 Temperature 98.3 F 97.6 F Pulse Rate 70 60 Respiratory Rate 18 19 Blood Pressure 120/59 L 102/60 Pulse Oximetry 98 96 Intake & Output 06/23/18 06/24/18 06/24/18 18:59 06:59 18:59 Intake Total 940 / 940 100 / 100 Balance 940 / 940 100 / 100 Weight 54.6 kg Intake: IV 100 / 100 100 / 100 Ancef 2 GM Premix Inj 2 gm In 100 / 100 100 / 100 50 ml @ 100 mls/hr IV.SIG Q8H RENU Rx#:[id number] Oral 840 / 840 Other: # Voids 3 2 Date of Last Bowel Movement 06/23/18 # Bowel Movements 0 <Angeline Kirk - 06/24/18 09:15> Narrative: GENERAL: female, laying in bed, in no acute distress. EYES: Pupils equal and round. No scleral icterus. No injection or drainage. CARDIOVASCULAR: Regular rate and rhythm, no murmurs, rubs, or gallops. RESPIRATORY: No accessory muscle use. Clear to auscultation. Breath sounds equal bilaterally. EXTREMITY: Left lateral hip incision healing well. NEUROLOGICAL: Awake and alert. <Alexis JaquezRaysaAngeline - 06/24/18 09:15> Assessment and Plan - Assessment (1) Bacterial arthritis of right hip Code(s): M00.851 - Arthritis due to other bacteria, right hip Status: Acute (2) Anemia Code(s): D64.9 - Anemia, unspecified Status: Chronic (3) Polysubstance abuse Code(s): F19.10 - Other psychoactive substance abuse, uncomplicated Status: Chronic (4) Cachexia Code(s): R64 - Cachexia Status: Chronic (5) Hepatitis C Code(s): B19.20 - Unspecified viral hepatitis C without hepatic coma Status: Chronic (6) Nutrition, metabolism, and development symptoms Code(s): R63.8 - Other symptoms and signs concerning food and fluid intake Status: Acute <Abiodun Puente - 06/24/18 12:38> (1) Bacterial arthritis of right hip Code(s): M00.851 - Arthritis due to other bacteria, right hip Status: Acute Plan: Well healed incision. Patient ambulating well. Ancef (05/14 - 07/10). Follow labs while on IV Abx: weekly CBC, creatinine. Next lab draw- June 27 Continue pain management: Methadone PO 30 mg daily, wean over long-term. Ibuprofen 800mg PO q8hr. Gabapentin 300mg PO TID. Continue morphine 1mg q6hr PRN Pain 7-10. Hospital Course: S/p right proximal femur resection (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 Incision site closure with eh. [place] removed. Tissue culture from 05/16 negative for growth. PT following. (2) Anemia Code(s): D64.9 - Anemia, unspecified Status: Chronic Plan: Stable. Microcytic, likely secondary to iron deficiency. Continue daily ferrous sulfate. (3) Polysubstance abuse Code(s): F19.10 - Other psychoactive substance abuse, uncomplicated Status: Chronic Plan: Patient with history of IVDU (heroin, dilaudid, and other narcotics) and smoker. Continue methadone as above. Nicotine patches. Patient actively working on setting up outpatient treatment to start following discharge. Case management to help with outpatient placement. Likely obtained illicit drugs from another patient during this hospitalization; currently with visitor restrictions, mother and one sister may visit. UDS scheduled for tomorrow. (4) Cachexia Code(s): R64 - Cachexia Status: Chronic Plan: Gaining weight. (5) Hepatitis C Code(s): B19.20 - Unspecified viral hepatitis C without hepatic coma Status: Chronic Plan: Patient with history of hepatitis C. Will require outpatient f/u and treatment. (6) Nutrition, metabolism, and development symptoms Code(s): R63.8 - Other symptoms and signs concerning food and fluid intake Status: Acute Plan: Fluid: Tolerating PO. Diet: Regular with supplementation. Electrolytes: Monitor and replete as necessary. <Angeline Kirk - 06/24/18 09:07> - Attending Attestation This patient was seen and evaluated with the resident physician. I agree with the plan of care as discussed with me and documented in the resident note. Abiodun Puente MD <Abiodun Puente - 06/24/18 12:38>
[2018-06-24] MEDS: Methadone 10 MG Tablet PO SCH (09:27)
[2018-06-24] MEDS: Hydrocortisone 2.5% Cream 30 GM Tube TOPICAL SCH ×2 (09:28→23:08)
[2018-06-24] MEDS: Ferrous Sulfate 325 MG Tablet PO SCH (09:28)
[2018-06-24] MEDS: Enoxaparin Inj 40 MG/0.4 ML Syringe SQ SCH (09:28)
[2018-06-24] MEDS: Gabapentin 300 MG Capsule PO SCH ×3 (09:28→18:20)
[2018-06-24] MEDS: Senna/Docusate Sodium 8.6/50 MG Tablet PO SCH ×2 (09:29→23:03)
[2018-06-25] MEDS: traZODone 50 MG Tablet PO PRN ×2 (01:30→22:31)
[2018-06-25] MEDS: Morphine Sulfate Inj 2 MG/ML Vial IV.PUSH PRN ×4 (01:30→22:20)
[2018-06-25] MEDS: ceFAZolin 2 GM Premix Inj 2 GM/50 ML PIGGYBACK IV.SIG SCH ×3 (05:49→22:19)
[2018-06-25] MEDS: Gabapentin 300 MG Capsule PO SCH ×3 (08:51→17:15)
[2018-06-25] MEDS: Methadone 10 MG Tablet PO SCH (08:51)
[2018-06-25] MEDS: Enoxaparin Inj 40 MG/0.4 ML Syringe SQ SCH (08:51)
[2018-06-25] MEDS: Ferrous Sulfate 325 MG Tablet PO SCH (08:51)
[2018-06-25] MEDS: Senna/Docusate Sodium 8.6/50 MG Tablet PO SCH ×2 (08:51→22:19)
--- NOTE | 2018-06-25 15:20 | P.PNFP ---
Subjective Interval history: Patient was seen and evaluated this morning. She is doing well. She had a good visit with her mom and sister. She also got to go outside with PT yesterday. Patient denies chest pain, shortness of breath, nausea, vomiting, diarrhea and constipation. All questions were answered. <Alexis Angeline Jaquez - 06/25/18 15:19> Results - Labs Result diagrams: 06/20/18 06:00 06/20/18 06:00 <Mary Ann Alfaro - 06/26/18 19:21> Physical Exam Vital signs: Vital Signs 06/25/18 20:00 06/26/18 00:00 06/26/18 05:10 Temperature 97.8 F 97.7 F Pulse Rate 71 61 Respiratory Rate 18 18 16 Blood Pressure 123/56 L 109/52 L Pulse Oximetry 97 96 06/26/18 07:00 06/26/18 08:00 06/26/18 12:00 Temperature 98.1 F 98.1 F Pulse Rate 71 80 Respiratory Rate 16 17 17 Blood Pressure 107/63 110/57 L Pulse Oximetry 98 98 06/26/18 16:00 Temperature 97.5 F L Pulse Rate 77 Respiratory Rate 18 Blood Pressure 113/59 L Pulse Oximetry 96 Intake & Output 06/26/18 06/26/18 06/27/18 06:59 18:59 06:59 Intake Total 580 / 580 1850 / 1850 Balance 580 / 580 1850 / 1850 Intake: IV 100 / 100 50 / 50 Ancef 2 GM Premix Inj 2 gm In 100 / 100 50 / 50 50 ml @ 100 mls/hr IV.SIG Q8H [facility] Rx#:[id number] Oral 480 / 480 Oral Supplement 1800 / 1800 Other: # Voids 1 6 Date of Last Bowel Movement 06/23/18 06/26/18 # Bowel Movements 1 <Mary Ann Alfaro R - 06/26/18 19:21> Vital Signs 06/24/18 16:00 06/24/18 20:00 06/25/18 02:20 Temperature 98.3 F 97.7 F 97.4 F L Pulse Rate 69 80 67 Respiratory Rate 17 18 17 Blood Pressure 106/58 L 118/80 116/58 L Pulse Oximetry 99 98 94 L 06/25/18 06:20 06/25/18 07:00 06/25/18 08:00 Temperature 97.4 F L Pulse Rate 64 Respiratory Rate 16 16 17 Blood Pressure 109/52 L Pulse Oximetry 98 06/25/18 12:00 Temperature 97.7 F Pulse Rate 75 Respiratory Rate Blood Pressure 118/56 L Pulse Oximetry 100 Intake & Output 06/24/18 06/25/18 06/25/18 18:59 06:59 18:59 Intake Total 1850 / 1850 100 / 100 50 / 50 Balance 1850 / 1850 100 / 100 50 / 50 Weight 55.2 kg Intake: IV 50 / 50 100 / 100 50 / 50 Ancef 2 GM Premix Inj 2 gm In 50 / 50 100 / 100 50 / 50 50 ml @ 100 mls/hr IV.SIG Q8H [facility] Rx#:[id number] Oral 1800 / 1800 Other: # Voids 5 3 Date of Last Bowel Movement 06/23/18 06/23/18 # Bowel Movements 1 <Angeline Kirk - 06/25/18 15:19> Narrative: GENERAL: female, laying in bed, in no acute distress. EYES: Pupils equal and round. No scleral icterus. No injection or drainage. CARDIOVASCULAR: Regular rate and rhythm, no murmurs, rubs, or gallops. RESPIRATORY: No accessory muscle use. Clear to auscultation. Breath sounds equal bilaterally. EXTREMITY: Left lateral hip incision healing well. NEUROLOGICAL: Awake and alert. <Angeline Kirk - 06/25/18 15:19> Assessment and Plan - Assessment (1) Bacterial arthritis of right hip Code(s): M00.851 - Arthritis due to other bacteria, right hip Status: Acute (2) Anemia Code(s): D64.9 - Anemia, unspecified Status: Chronic (3) Polysubstance abuse Code(s): F19.10 - Other psychoactive substance abuse, uncomplicated Status: Chronic (4) Cachexia Code(s): R64 - Cachexia Status: Chronic (5) Hepatitis C Code(s): B19.20 - Unspecified viral hepatitis C without hepatic coma Status: Chronic (6) Nutrition, metabolism, and development symptoms Code(s): R63.8 - Other symptoms and signs concerning food and fluid intake Status: Acute <Mary Ann Alfaro - 06/26/18 19:21> (1) Bacterial arthritis of right hip Code(s): M00.851 - Arthritis due to other bacteria, right hip Status: Acute Plan: Well healed incision. Patient ambulating well. Ancef (05/14 - 07/10). Follow labs while on IV Abx: weekly CBC, creatinine. Next lab draw- June 27 Continue pain management: Methadone PO 30 mg daily, wean over long-term. Ibuprofen 800mg PO q8hr. Gabapentin 300mg PO TID. Continue morphine 1mg q6hr PRN Pain 7-10. Hospital Course: S/p right proximal femur resection (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 Incision site closure with jimy. Jimy removed. Tissue culture from 05/16 negative for growth. PT following. (2) Anemia Code(s): D64.9 - Anemia, unspecified Status: Chronic Plan: Stable. Microcytic, likely secondary to iron deficiency. Continue daily ferrous sulfate. (3) Polysubstance abuse Code(s): F19.10 - Other psychoactive substance abuse, uncomplicated Status: Chronic Plan: Patient with history of IVDU (heroin, dilaudid, and other narcotics) and smoker. Continue methadone as above. Patient actively working on setting up outpatient treatment to start following discharge. Case management to help with outpatient placement. Likely obtained illicit drugs from another patient during this hospitalization; currently with visitor restrictions, mother and one sister may visit. UDS scheduled for 06/25/18 - pending. (4) Cachexia Code(s): R64 - Cachexia Status: Chronic Plan: Gaining weight. (5) Hepatitis C Code(s): B19.20 - Unspecified viral hepatitis C without hepatic coma Status: Chronic Plan: Patient with history of hepatitis C. Will require outpatient f/u and treatment. (6) Nutrition, metabolism, and development symptoms Code(s): R63.8 - Other symptoms and signs concerning food and fluid intake Status: Acute Plan: Fluid: Tolerating PO. Diet: Regular with supplementation. Electrolytes: Monitor and replete as necessary. <Angeline Kirk - 06/25/18 15:05> - Assessment and Plan Discharge Planning: Antibiotic treatment to conclude 07/10/18. Discharge pending completion of antibiotic course. <Angeline Kirk - 06/25/18 15:19> - Attending Attestation This patient was seen and examined. The assessment and plan was discussed with the resident physician and I am in agreement with continued medical care as documented in this encounter. MARY ANN ALFARO MD <Mary Ann Alfaro R - 06/26/18 19:20>
[2018-06-25 15:58] LABS: Amphetamine Screen,Urine Neg (Neg); Barbiturate Screen,Urine Neg (Neg); Cannabinoid Screen,Urine Neg (Neg); Cocaine Screen,Urine Neg (Neg)
[2018-06-25 16:10] LABS: Opiate Screen,Urine Neg (Neg)
[2018-06-26] MEDS: ceFAZolin 2 GM Premix Inj 2 GM/50 ML PIGGYBACK IV.SIG SCH ×3 (04:55→21:08)
[2018-06-26] MEDS: Morphine Sulfate Inj 2 MG/ML Vial IV.PUSH PRN ×4 (05:09→23:01)
[2018-06-26] MEDS: Gabapentin 300 MG Capsule PO SCH ×3 (08:44→17:04)
[2018-06-26] MEDS: Enoxaparin Inj 40 MG/0.4 ML Syringe SQ SCH (08:44)
[2018-06-26] MEDS: Senna/Docusate Sodium 8.6/50 MG Tablet PO SCH ×2 (08:45→21:09)
[2018-06-26] MEDS: Ferrous Sulfate 325 MG Tablet PO SCH (08:45)
[2018-06-26] MEDS: Methadone 10 MG Tablet PO SCH (08:45)
--- NOTE | 2018-06-26 10:58 | P.PNFP ---
Subjective Interval history: Patient was seen and evaluated this morning. She reports feeling well. She denies chest pain, shortness of breath, nausea, vomiting, diarrhea and constipation. Patient's UDS from 06/25/18 is negative. Patient asks if additional visitor may be allowed. All questions were answered. <Debotc Angeline Jaquez - 06/26/18 18:06> Results - Labs Result diagrams: 06/20/18 06:00 06/20/18 06:00 <Mary Ann Alfaro - 06/26/18 19:30> Physical Exam Vital signs: Vital Signs 06/25/18 20:00 06/26/18 00:00 06/26/18 05:10 Temperature 97.8 F 97.7 F Pulse Rate 71 61 Respiratory Rate 18 18 16 Blood Pressure 123/56 L 109/52 L Pulse Oximetry 97 96 06/26/18 07:00 06/26/18 08:00 06/26/18 12:00 Temperature 98.1 F 98.1 F Pulse Rate 71 80 Respiratory Rate 16 17 17 Blood Pressure 107/63 110/57 L Pulse Oximetry 98 98 06/26/18 16:00 Temperature 97.5 F L Pulse Rate 77 Respiratory Rate 18 Blood Pressure 113/59 L Pulse Oximetry 96 Intake & Output 06/26/18 06/26/18 06/27/18 06:59 18:59 06:59 Intake Total 580 / 580 1850 / 1850 Balance 580 / 580 1850 / 1850 Intake: IV 100 / 100 50 / 50 Ancef 2 GM Premix Inj 2 gm In 100 / 100 50 / 50 50 ml @ 100 mls/hr IV.SIG Q8H [facility] Rx#:[id number] Oral 480 / 480 Oral Supplement 1800 / 1800 Other: # Voids 1 6 Date of Last Bowel Movement 06/23/18 06/26/18 # Bowel Movements 1 <Mary Ann Alfaro R - 06/26/18 19:30> Vital Signs 06/25/18 12:00 06/25/18 16:00 06/25/18 20:00 Temperature 97.7 F 97.9 F 97.8 F Pulse Rate 75 66 71 Respiratory Rate 18 18 Blood Pressure 118/56 L 102/55 L 123/56 L Pulse Oximetry 100 98 97 06/26/18 00:00 06/26/18 05:10 06/26/18 07:00 Temperature 97.7 F Pulse Rate 61 Respiratory Rate 18 16 16 Blood Pressure 109/52 L Pulse Oximetry 96 06/26/18 08:00 Temperature 98.1 F Pulse Rate 71 Respiratory Rate 17 Blood Pressure 107/63 Pulse Oximetry 98 Intake & Output 06/25/18 06/26/18 06/26/18 18:59 06:59 18:59 Intake Total 890 / 890 580 / 580 Balance 890 / 890 580 / 580 Intake: IV 50 / 50 100 / 100 Ancef 2 GM Premix Inj 2 gm In 50 / 50 100 / 100 50 ml @ 100 mls/hr IV.SIG Q8H [facility] Rx#:[id number] Oral 840 / 840 480 / 480 Other: # Voids 3 1 Date of Last Bowel Movement 06/23/18 06/23/18 06/25/18 # Bowel Movements 1 1 <Angeline Kirk - 06/26/18 10:58> Narrative: GENERAL: female, laying in bed, in no acute distress. EYES: Pupils equal and round. No scleral icterus. No injection or drainage. CARDIOVASCULAR: Regular rate and rhythm, no murmurs, rubs, or gallops. RESPIRATORY: No accessory muscle use. Clear to auscultation. Breath sounds equal bilaterally. EXTREMITY: Left lateral hip incision healing well. NEUROLOGICAL: Awake and alert. <Angeline Kirk - 06/26/18 18:06> Assessment and Plan - Assessment (1) Bacterial arthritis of right hip Code(s): M00.851 - Arthritis due to other bacteria, right hip Status: Acute (2) Anemia Code(s): D64.9 - Anemia, unspecified Status: Chronic (3) Polysubstance abuse Code(s): F19.10 - Other psychoactive substance abuse, uncomplicated Status: Chronic (4) Cachexia Code(s): R64 - Cachexia Status: Chronic (5) Hepatitis C Code(s): B19.20 - Unspecified viral hepatitis C without hepatic coma Status: Chronic (6) Nutrition, metabolism, and development symptoms Code(s): R63.8 - Other symptoms and signs concerning food and fluid intake Status: Acute <Mary Ann Alfaro - 06/26/18 19:30> (1) Bacterial arthritis of right hip Code(s): M00.851 - Arthritis due to other bacteria, right hip Status: Acute Plan: Well healed incision. Patient ambulating well. Ancef (05/14 - 07/10). Follow labs while on IV Abx: weekly CBC, creatinine. Next lab draw- June 27 Continue pain management: Methadone PO 30 mg daily, wean over long-term. Ibuprofen 800mg PO q8hr. Gabapentin 300mg PO TID. Continue morphine 1mg q6hr PRN Pain 7-10. Hospital Course: S/p right proximal femur resection (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 Incision site closure with jimy. Jimy removed. Tissue culture from 05/16 negative for growth. PT following. (2) Anemia Code(s): D64.9 - Anemia, unspecified Status: Chronic Plan: Stable. Microcytic, likely secondary to iron deficiency. Continue daily ferrous sulfate. (3) Polysubstance abuse Code(s): F19.10 - Other psychoactive substance abuse, uncomplicated Status: Chronic Plan: Patient with history of IVDU (heroin, dilaudid, and other narcotics) and smoker. Continue methadone as above. Patient actively working on setting up outpatient treatment to start following discharge. Case management to help with outpatient placement. Likely obtained illicit drugs from another patient during this hospitalization; currently with visitor restrictions, mother and one sister may visit. Will allow one additional visitor. UDS scheduled for 06/25/18 - negative. (4) Cachexia Code(s): R64 - Cachexia Status: Chronic Plan: Gaining weight. (5) Hepatitis C Code(s): B19.20 - Unspecified viral hepatitis C without hepatic coma Status: Chronic Plan: Patient with history of hepatitis C. Will require outpatient f/u and treatment. (6) Nutrition, metabolism, and development symptoms Code(s): R63.8 - Other symptoms and signs concerning food and fluid intake Status: Acute Plan: Fluid: Tolerating PO. Diet: Regular with supplementation. Electrolytes: Monitor and replete as necessary. <Angeline Kirk - 06/26/18 18:02> - Assessment and Plan Discharge Planning: Antibiotic treatment to conclude 07/10/18. Discharge pending completion of antibiotic course. <Angeline Kirk - 06/26/18 10:58> - Attending Attestation This patient was seen and examined. The assessment and plan was discussed with the resident physician and I am in agreement with continued medical care as documented in this encounter. MARY ANN ALFARO MD <Mary Ann Alfaro R - 06/26/18 19:30>
[2018-06-26] MEDS: traZODone 50 MG Tablet PO PRN (23:01)
[2018-06-27] MEDS: ceFAZolin 2 GM Premix Inj 2 GM/50 ML PIGGYBACK IV.SIG SCH ×3 (05:29→22:29)
[2018-06-27] MEDS: Morphine Sulfate Inj 2 MG/ML Vial IV.PUSH PRN ×3 (05:31→18:21)
[2018-06-27 05:55] LABS: Baso % (Auto) 1.3 % (0.0-2.0); Eos # (Auto) 0.3 th/mm3 (0.0-0.4); Eos % (Auto) 6.9 % (0.0-4.0); Hematocrit 31.3 % (35.0-46.0); Hemoglobin 10.2 gm/dL (11.6-15.3); Lymph # (Auto) 1.5 th/mm3 (1.0-4.8); Lymph % (Auto) 38.7 % (9.0-44.0); Mean Corpuscular HGB Conc 32.6 % (32.0-36.0); Mean Corpuscular Hemoglobin 25.2 pg (27.0-34.0); Mean Platelet Volume 7.7 fL (7.0-11.0); Mono # (Auto) 0.5 th/mm3 (0.0-0.9); Mono % (Auto) 12.6 % (0.0-8.0); Neut # (Auto) 1.5 th/mm3 (1.8-7.7); Neut % (Auto) 40.5 % (16.0-70.0); Platelet Count 236 th/mm3 (150-450); Red Blood Count 4.06 mil/mm3 (4.00-5.30); Red Cell Distribution Width 23.7 % (11.6-17.2); White Blood Count 3.8 th/mm3 (4.0-11.0)
[2018-06-27 06:12] LABS: Calcium 9.2 mg/dL (8.5-10.1); Potassium 4.3 meq/L (3.5-5.1)
--- NOTE | 2018-06-27 08:48 | P.PNFP ---
Subjective Interval history: Patient seen and examined at bedside this morning. She was eating breakfast during my evaluation. She has no complaints. She is encouraged by her improvement in mobility. She has an appointment at the methadone clinic for July 14. She will have a visit her tomorrow afternoon. Denies any chest pain, shortness of breath, abdominal pain, leg swelling. <Areli JacobsonBrenda Dru - 06/27/18 11:38> Results - Labs Result diagrams: 06/27/18 05:30 06/27/18 05:30 <Mary Ann Alfaro - 06/27/18 15:38> Abnormal lab results 06/27/18 06/27/18 Range/Units 05:30 05:30 WBC 3.8 L (4.0-11.0) th/mm3 Hgb 10.2 L (11.6-15.3) gm/dL Hct 31.3 L (35.0-46.0) % MCV 77.0 L (80.0-100.0) fL MCH 25.2 L (27.0-34.0) pg RDW 23.7 H (11.6-17.2) % [place] % (Auto) 12.6 H (0.0-8.0) % Eos % (Auto) 6.9 H (0.0-4.0) % Neut # (Auto) 1.5 L (1.8-7.7) th/mm3 BUN 26 H (7-18) mg/dL Estimated GFR 85 L (>89) mL/min Short CBC 06/27/18 Range/Units 05:30 WBC 3.8 L (4.0-11.0) th/mm3 Hgb 10.2 L (11.6-15.3) gm/dL Hct 31.3 L (35.0-46.0) % Plt Count 236 (150-450) th/mm3 BMP 06/27/18 05:30 Sodium 140 Potassium 4.3 Chloride 104 Carbon Dioxide 31.0 BUN 26 H Creatinine 0.75 Calcium 9.2 <Mary Ann Alfaro - 06/27/18 15:38> Abnormal lab results 06/27/18 06/27/18 Range/Units 05:30 05:30 WBC 3.8 L (4.0-11.0) th/mm3 Hgb 10.2 L (11.6-15.3) gm/dL Hct 31.3 L (35.0-46.0) % MCV 77.0 L (80.0-100.0) fL MCH 25.2 L (27.0-34.0) pg RDW 23.7 H (11.6-17.2) % [place] % (Auto) 12.6 H (0.0-8.0) % Eos % (Auto) 6.9 H (0.0-4.0) % Neut # (Auto) 1.5 L (1.8-7.7) th/mm3 BUN 26 H (7-18) mg/dL Estimated GFR 85 L (>89) mL/min Short CBC 06/27/18 Range/Units 05:30 WBC 3.8 L (4.0-11.0) th/mm3 Hgb 10.2 L (11.6-15.3) gm/dL Hct 31.3 L (35.0-46.0) % Plt Count 236 (150-450) th/mm3 BMP 06/27/18 05:30 Sodium 140 Potassium 4.3 Chloride 104 Carbon Dioxide 31.0 BUN 26 H Creatinine 0.75 Calcium 9.2 <Areli R1,Brenda A - 06/27/18 08:48> Physical Exam Vital signs: Vital Signs 06/26/18 16:00 06/26/18 20:00 06/27/18 00:00 Temperature 97.5 F L 97.8 F 98.4 F Pulse Rate 77 73 73 Respiratory Rate 18 18 18 Blood Pressure 113/59 L 106/57 L 132/64 Pulse Oximetry 96 98 98 06/27/18 08:00 06/27/18 12:00 Temperature 97.5 F L 97.6 F Pulse Rate 67 77 Respiratory Rate 17 17 Blood Pressure 120/69 107/53 L Pulse Oximetry 98 97 Intake & Output 06/26/18 06/27/18 06/27/18 18:59 06:59 18:59 Intake Total 18490 110 / 110 50 / 50 Balance 1849 110 / 110 50 / 50 Weight 57.2 kg Intake: IV 50 / 50 110 / 110 50 / 50 Ancef 2 GM Premix Inj 2 gm In 50 / 50 110 / 110 50 / 50 50 ml @ 100 mls/hr IV.SIG Q8H [facility] Rx#:[id number] Oral Supplement 1800 / 1800 Other: # Voids 6 2 Date of Last Bowel Movement 06/26/18 06/26/18 06/26/18 # Bowel Movements 1 <Mary Ann Alfaro R - 06/27/18 15:38> Vital Signs 06/26/18 12:00 06/26/18 16:00 06/26/18 20:00 Temperature 98.1 F 97.5 F L 97.8 F Pulse Rate 80 77 73 Respiratory Rate 17 18 18 Blood Pressure 110/57 L 113/59 L 106/57 L Pulse Oximetry 98 96 98 06/27/18 00:00 06/27/18 08:00 Temperature 98.4 F 97.5 F L Pulse Rate 73 67 Respiratory Rate 18 17 Blood Pressure 132/64 120/69 Pulse Oximetry 98 98 Intake & Output 06/26/18 06/27/18 06/27/18 18:59 06:59 18:59 Intake Total 1850 / 1850 110 / 110 Balance 1850 / 1850 110 / 110 Weight 56.5 kg Intake: IV 50 / 50 110 / 110 Ancef 2 GM Premix Inj 2 gm In 50 / 50 110 / 110 50 ml @ 100 mls/hr IV.SIG Q8H [facility] Rx#:[id number] Oral Supplement 1800 / 1800 Other: # Voids 6 2 Date of Last Bowel Movement 06/26/18 06/26/18 # Bowel Movements 1 <Brenda Busch A - 06/27/18 08:48> Assessment and Plan - Assessment (1) Bacterial arthritis of right hip Code(s): M00.851 - Arthritis due to other bacteria, right hip Status: Acute (2) Anemia Code(s): D64.9 - Anemia, unspecified Status: Chronic (3) Polysubstance abuse Code(s): F19.10 - Other psychoactive substance abuse, uncomplicated Status: Chronic (4) Cachexia Code(s): R64 - Cachexia Status: Chronic (5) Hepatitis C Code(s): B19.20 - Unspecified viral hepatitis C without hepatic coma Status: Chronic (6) Nutrition, metabolism, and development symptoms Code(s): R63.8 - Other symptoms and signs concerning food and fluid intake Status: Acute <Mary Ann Alfaro R - 06/27/18 15:38> (1) Bacterial arthritis of right hip Code(s): M00.851 - Arthritis due to other bacteria, right hip Status: Acute Plan: Well healed incision. Patient ambulating well. Ancef (05/14 - 07/10). Follow labs while on IV Abx: weekly CBC, creatinine. Next lab draw- July 04 Continue pain management: Methadone PO 30 mg daily, wean over long-term. Ibuprofen 800mg PO q8hr. Gabapentin 300mg PO TID. Continue morphine 1mg q6hr PRN Pain 7-10. Hospital Course: S/p right proximal femur resection (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 Incision site closure with jimy. Jimy removed. Tissue culture from 05/16 negative for growth. PT following. (2) Anemia Code(s): D64.9 - Anemia, unspecified Status: Chronic Plan: Stable at 10.2 today. Repeat CBC on July 04. Microcytic, likely secondary to iron deficiency. Continue daily ferrous sulfate. (3) Polysubstance abuse Code(s): F19.10 - Other psychoactive substance abuse, uncomplicated Status: Chronic Plan: Patient with history of IVDU (heroin, dilaudid, and other narcotics) and smoker. Continue methadone as above. Patient actively working on setting up outpatient treatment to start following discharge. Case management to help with outpatient placement. Likely obtained illicit drugs from another patient during this hospitalization; currently with visitor restrictions, mother and one sister may visit. Will allow one additional visitor. UDS scheduled for 06/29 as patient does have a visitor coming tomorrow. UDS 06/25/18 - negative. (4) Cachexia Code(s): R64 - Cachexia Status: Chronic Plan: Gaining weight. (5) Hepatitis C Code(s): B19.20 - Unspecified viral hepatitis C without hepatic coma Status: Chronic Plan: Patient with history of hepatitis C. Will require outpatient f/u and treatment. (6) Nutrition, metabolism, and development symptoms Code(s): R63.8 - Other symptoms and signs concerning food and fluid intake Status: Acute Plan: Fluid: Tolerating PO. Diet: Regular with supplementation. Electrolytes: Monitor and replete as necessary. <Brenda Busch - 06/27/18 11:32> - Assessment and Plan Discharge Planning: Antibiotic treatment to conclude 07/10/18. Discharge pending completion of antibiotic course. Patient has an appointment with the methadone clinic on July 14. <Brenda Busch - 06/27/18 11:38> - Attending Attestation This patient was seen and examined. The assessment and plan was discussed with the resident physician and I am in agreement with continued medical care as documented in this encounter. MARY ANN ALFARO MD <Mary Ann Alfaro - 06/27/18 15:38>
[2018-06-27] MEDS: Methadone 10 MG Tablet PO SCH (09:28)
[2018-06-27] MEDS: Enoxaparin Inj 40 MG/0.4 ML Syringe SQ SCH (09:28)
[2018-06-27] MEDS: Ferrous Sulfate 325 MG Tablet PO SCH (09:29)
[2018-06-27] MEDS: Gabapentin 300 MG Capsule PO SCH ×3 (09:29→18:21)
[2018-06-27] MEDS: Senna/Docusate Sodium 8.6/50 MG Tablet PO SCH ×2 (09:29→22:02)
[2018-06-28] MEDS: Morphine Sulfate Inj 2 MG/ML Vial IV.PUSH PRN ×4 (02:24→22:15)
[2018-06-28] MEDS: traZODone 50 MG Tablet PO PRN ×2 (02:24→22:15)
[2018-06-28] MEDS: ceFAZolin 2 GM Premix Inj 2 GM/50 ML PIGGYBACK IV.SIG SCH ×3 (06:00→20:41)
[2018-06-28] MEDS: Ferrous Sulfate 325 MG Tablet PO SCH (08:03)
[2018-06-28] MEDS: Senna/Docusate Sodium 8.6/50 MG Tablet PO SCH ×2 (08:04→20:41)
[2018-06-28] MEDS: Methadone 10 MG Tablet PO SCH (08:04)
[2018-06-28] MEDS: Gabapentin 300 MG Capsule PO SCH ×3 (08:04→17:41)
[2018-06-28] MEDS: Enoxaparin Inj 40 MG/0.4 ML Syringe SQ SCH (08:04)
--- NOTE | 2018-06-28 08:40 | P.PNFP ---
Subjective Interval history: Patient was seen and evaluated this morning. She reports night sweats; "the nurse had to change my sheets because they were drenched." She feels well this morning. She denies chest pain, shortness of breath, nausea, vomiting, diarrhea and constipation. Patient made an appointment with an outpatient Methadone clinic for 07/14/18. The clinic asked for "social service" to fax a medication list to them prior to the appointment. Patient spoke to Case Management, who offered to fax her medication list the day prior to discharge. Patient may have a visitor today. All questions were answered. <Angeline Kirk - 06/28/18 08:39> Results - Labs Result diagrams: 06/27/18 05:30 06/27/18 05:30 <Mary Ann Alfaro - 06/29/18 16:47> Physical Exam Vital signs: Vital Signs 06/28/18 20:42 06/28/18 23:27 06/29/18 08:00 Temperature 97.9 F 97.8 F 98.1 F Pulse Rate 71 65 56 L Respiratory Rate 18 16 16 Blood Pressure 112/56 L 116/55 L 115/58 L Pulse Oximetry 99 98 97 06/29/18 12:00 06/29/18 16:00 Temperature 97.9 F 97.2 F L Pulse Rate 76 73 Respiratory Rate 18 18 Blood Pressure 105/61 106/58 L Pulse Oximetry 95 97 Intake & Output 06/28/18 06/29/18 06/29/18 18:59 06:59 18:59 Intake Total 1250 / 1250 820 / 820 Balance 1250 / 1250 820 / 820 Weight 56.6 kg Intake: IV 50 / 50 100 / 100 Ancef 2 GM Premix Inj 2 gm In 50 / 50 100 / 100 50 ml @ 100 mls/hr IV.SIG Q8H [facility] Rx#:[id number] Oral 1200 / 1200 720 / 720 Other: # Voids 2 # Incontinent Voids 1 Date of Last Bowel Movement 06/27/18 06/28/18 # Bowel Movements 0 <Mary Ann Alfaro - 06/29/18 16:47> Vital Signs 06/27/18 12:00 06/27/18 16:00 06/27/18 20:00 Temperature 97.6 F 98.1 F 98.3 F Pulse Rate 77 70 66 Respiratory Rate 17 17 20 Blood Pressure 107/53 L 105/51 L 100/55 L Pulse Oximetry 97 97 96 06/27/18 22:56 06/28/18 00:00 06/28/18 03:44 Temperature 98.3 F 98.1 F Pulse Rate 54 L 57 L Respiratory Rate 18 18 18 Blood Pressure 119/69 104/62 Pulse Oximetry 98 97 06/28/18 03:55 06/28/18 08:00 Temperature 97.9 F Pulse Rate 79 Respiratory Rate 18 17 Blood Pressure 137/65 Pulse Oximetry 98 Intake & Output 06/27/18 06/28/18 06/28/18 18:59 06:59 18:59 Intake Total 50 / 50 340 / 340 Balance 50 / 50 340 / 340 Weight 55.3 kg Intake: IV 50 / 50 100 / 100 Ancef 2 GM Premix Inj 2 gm In 50 / 50 100 / 100 50 ml @ 100 mls/hr IV.SIG Q8H [facility] Rx#:[id number] Oral 240 / 240 Other: # Voids 5 2 Date of Last Bowel Movement 06/27/18 06/27/18 # Bowel Movements 1 <Alexis Angeline Jaquez - 06/28/18 08:39> Narrative: GENERAL: female, laying in bed, in no acute distress. EYES: Pupils equal and round. No scleral icterus. No injection or drainage. CARDIOVASCULAR: Regular rate and rhythm, no murmurs, rubs, or gallops. RESPIRATORY: No accessory muscle use. Clear to auscultation. Breath sounds equal bilaterally. EXTREMITY: Left lateral hip incision healing well. NEUROLOGICAL: Awake and alert. <Alexis Angeline Jaquez - 06/28/18 08:39> Assessment and Plan - Assessment (1) Bacterial arthritis of right hip Code(s): M00.851 - Arthritis due to other bacteria, right hip Status: Acute (2) Anemia Code(s): D64.9 - Anemia, unspecified Status: Chronic (3) Polysubstance abuse Code(s): F19.10 - Other psychoactive substance abuse, uncomplicated Status: Chronic (4) Cachexia Code(s): R64 - Cachexia Status: Chronic (5) Hepatitis C Code(s): B19.20 - Unspecified viral hepatitis C without hepatic coma Status: Chronic (6) Nutrition, metabolism, and development symptoms Code(s): R63.8 - Other symptoms and signs concerning food and fluid intake Status: Acute <JacobMary Ann alonso R - 06/29/18 16:47> (1) Bacterial arthritis of right hip Code(s): M00.851 - Arthritis due to other bacteria, right hip Status: Acute Plan: Well healed incision. Patient ambulating well. Ancef (05/14 - 07/10). Follow labs while on IV Abx: weekly CBC, creatinine. Next lab draw- July 04 Continue pain management: Methadone PO 30 mg daily, wean over long-term. Ibuprofen 800mg PO q8hr. Gabapentin 300mg PO TID. Continue morphine 1mg q6hr PRN Pain 7-10. Hospital Course: S/p right proximal femur resection (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 Incision site closure with jimy. Jimy removed. Tissue culture from 05/16 negative for growth. PT following. (2) Anemia Code(s): D64.9 - Anemia, unspecified Status: Chronic Plan: Stable at 10.2. Repeat CBC on 07/04/18. Microcytic, likely secondary to iron deficiency. Continue daily ferrous sulfate. (3) Polysubstance abuse Code(s): F19.10 - Other psychoactive substance abuse, uncomplicated Status: Chronic Plan: Patient with history of IVDU (heroin, dilaudid, and other narcotics) and smoker. Continue methadone as above. Patient actively working on setting up outpatient treatment to start following discharge. Case management to help with outpatient placement. Likely obtained illicit drugs from another patient during this hospitalization; currently with visitor restrictions, mother and one sister may visit. Will allow one additional visitor. UDS 06/25/18 - negative. (4) Cachexia Code(s): R64 - Cachexia Status: Chronic Plan: Gaining weight. (5) Hepatitis C Code(s): B19.20 - Unspecified viral hepatitis C without hepatic coma Status: Chronic Plan: Patient with history of hepatitis C. Will require outpatient f/u and treatment. (6) Nutrition, metabolism, and development symptoms Code(s): R63.8 - Other symptoms and signs concerning food and fluid intake Status: Acute Plan: Fluid: Tolerating PO. Diet: Regular with supplementation. Electrolytes: Monitor and replete as necessary. <Labell R2,Angeline - 06/28/18 08:33> - Assessment and Plan Discharge Planning: Antibiotic treatment to conclude 07/10/18. Discharge pending completion of antibiotic course. <Angeline Kirk - 06/28/18 08:39> - Attending Attestation This patient was seen and examined. The assessment and plan was discussed with the resident physician and I am in agreement with continued medical care as documented in this encounter. MARY ANN ALFARO MD <Mary Ann Alfaro - 06/29/18 16:47>
[2018-06-29] MEDS: ceFAZolin 2 GM Premix Inj 2 GM/50 ML PIGGYBACK IV.SIG SCH ×3 (06:03→21:44)
[2018-06-29] MEDS: Morphine Sulfate Inj 2 MG/ML Vial IV.PUSH PRN ×3 (07:46→21:45)
[2018-06-29] MEDS: Ferrous Sulfate 325 MG Tablet PO SCH (08:46)
[2018-06-29] MEDS: Methadone 10 MG Tablet PO SCH (08:47)
[2018-06-29] MEDS: Gabapentin 300 MG Capsule PO SCH ×3 (08:47→18:24)
[2018-06-29] MEDS: Senna/Docusate Sodium 8.6/50 MG Tablet PO SCH ×2 (08:47→23:13)
[2018-06-29] MEDS: Enoxaparin Inj 40 MG/0.4 ML Syringe SQ SCH (08:47)
--- NOTE | 2018-06-29 11:09 | P.PNFP ---
Subjective Interval history: Patient seen and examined at bedside this morning. She had a visitor yesterday so a urine drug screen was ordered. She was able to complete 6 laps yesterday. I discussed with her the weaning schedule of her morphine. She voiced understanding. All of her questions were answered to the best of my ability. She denied any chest pain, shortness of breath, abdominal pain, lower extremity swelling. <Areli JacobsonBrenda A - 06/29/18 12:24> Results - Labs Result diagrams: 06/27/18 05:30 06/27/18 05:30 <Mary Ann Alfaro - 06/29/18 17:03> Physical Exam Vital signs: Vital Signs 06/28/18 20:42 06/28/18 23:27 06/29/18 08:00 Temperature 97.9 F 97.8 F 98.1 F Pulse Rate 71 65 56 L Respiratory Rate 18 16 16 Blood Pressure 112/56 L 116/55 L 115/58 L Pulse Oximetry 99 98 97 06/29/18 12:00 06/29/18 16:00 Temperature 97.9 F 97.2 F L Pulse Rate 76 73 Respiratory Rate 18 18 Blood Pressure 105/61 106/58 L Pulse Oximetry 95 97 Intake & Output 06/28/18 06/29/18 06/29/18 18:59 06:59 18:59 Intake Total 1250 / 1250 820 / 820 Balance 1250 / 1250 820 / 820 Weight 56.6 kg Intake: IV 50 / 50 100 / 100 Ancef 2 GM Premix Inj 2 gm In 50 / 50 100 / 100 50 ml @ 100 mls/hr IV.SIG Q8H [facility] Rx#:[id number] Oral 1200 / 1200 720 / 720 Other: # Voids 2 # Incontinent Voids 1 Date of Last Bowel Movement 06/27/18 06/28/18 # Bowel Movements 0 <Mary Ann Alfaro R - 06/29/18 17:03> Vital Signs 06/28/18 11:55 06/28/18 16:00 06/28/18 20:42 Temperature 97.3 F L 98.2 F 97.9 F Pulse Rate 81 80 71 Respiratory Rate 18 18 18 Blood Pressure 117/63 128/56 L 112/56 L Pulse Oximetry 98 96 99 06/28/18 23:27 06/29/18 08:00 Temperature 97.8 F 98.1 F Pulse Rate 65 56 L Respiratory Rate 16 16 Blood Pressure 116/55 L 115/58 L Pulse Oximetry 98 97 Intake & Output 06/28/18 06/29/18 06/29/18 18:59 06:59 18:59 Intake Total 1250 / 1250 820 / 820 Balance 1250 / 1250 820 / 820 Weight 56.6 kg Intake: IV 50 / 50 100 / 100 Ancef 2 GM Premix Inj 2 gm In 50 / 50 100 / 100 50 ml @ 100 mls/hr IV.SIG Q8H [facility] Rx#:[id number] Oral 1200 / 1200 720 / 720 Other: # Voids 2 # Incontinent Voids 1 Date of Last Bowel Movement 06/27/18 # Bowel Movements 0 <Brenda Busch - 06/29/18 11:09> Narrative: GENERAL: female, laying in bed playing on the computer, in no acute distress. EYES: Pupils equal and round. No scleral icterus. No injection or drainage. CARDIOVASCULAR: Regular rate and rhythm, no murmurs, rubs, or gallops. RESPIRATORY: No accessory muscle use. Clear to auscultation. Breath sounds equal bilaterally. EXTREMITY: Left lateral hip incision healing well. NEUROLOGICAL: Awake and alert. <Brenda Busch - 06/29/18 12:24> Assessment and Plan - Assessment (1) Bacterial arthritis of right hip Code(s): M00.851 - Arthritis due to other bacteria, right hip Status: Acute (2) Anemia Code(s): D64.9 - Anemia, unspecified Status: Chronic (3) Polysubstance abuse Code(s): F19.10 - Other psychoactive substance abuse, uncomplicated Status: Chronic (4) Cachexia Code(s): R64 - Cachexia Status: Chronic (5) Hepatitis C Code(s): B19.20 - Unspecified viral hepatitis C without hepatic coma Status: Chronic (6) Nutrition, metabolism, and development symptoms Code(s): R63.8 - Other symptoms and signs concerning food and fluid intake Status: Acute <Mary Ann Alfaro - 06/29/18 17:03> (1) Bacterial arthritis of right hip Code(s): M00.851 - Arthritis due to other bacteria, right hip Status: Acute Plan: Well healed incision. Patient ambulating well. Ancef (05/14 - 07/10). Follow labs while on IV Abx: weekly CBC, creatinine. Next lab draw- July 04 Continue pain management: Methadone PO 30 mg daily, wean over long-term. Ibuprofen 800mg PO q8hr. Gabapentin 300mg PO TID. Continue morphine 1mg q6hr PRN Pain 7-10. Hospital Course: S/p right proximal femur resection (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 Incision site closure with jimy. Jiym removed. Tissue culture from 05/16 negative for growth. PT following. (2) Anemia Code(s): D64.9 - Anemia, unspecified Status: Chronic Plan: Stable at 10.2. Repeat CBC on 07/04/18. Microcytic, likely secondary to iron deficiency. Continue daily ferrous sulfate. (3) Polysubstance abuse Code(s): F19.10 - Other psychoactive substance abuse, uncomplicated Status: Chronic Plan: Patient with history of IVDU (heroin, dilaudid, and other narcotics) and smoker. Continue methadone as above. Patient actively working on setting up outpatient treatment to start following discharge. Case management to help with outpatient placement. Patient has an appointment at the methadone clinic on July 14. Likely obtained illicit drugs from another patient during this hospitalization; currently with visitor restrictions, mother and one sister may visit. Will allow one additional visitor. UDS 06/25/18 - negative. UDS 06/29/18- PENDING (4) Cachexia Code(s): R64 - Cachexia Status: Chronic Plan: Gaining weight. (5) Hepatitis C Code(s): B19.20 - Unspecified viral hepatitis C without hepatic coma Status: Chronic Plan: Patient with history of hepatitis C. Will require outpatient f/u and treatment. (6) Nutrition, metabolism, and development symptoms Code(s): R63.8 - Other symptoms and signs concerning food and fluid intake Status: Acute Plan: Fluid: Tolerating PO. Diet: Regular with supplementation. Electrolytes: Monitor and replete as necessary. <Brenda Busch - 06/29/18 12:25> - Assessment and Plan Discharge Planning: Antibiotic treatment to conclude 02/21/19. Discharge pending completion of antibiotic course. Patient has an appointment with the methadone clinic on July 14. <Brenda Busch - 06/29/18 12:24> - Attending Attestation This patient was seen and examined. The assessment and plan was discussed with the resident physician and I am in agreement with continued medical care as documented in this encounter. MARY ANN ALFARO MD <Mary Ann Alfaro - 06/29/18 17:03>
[2018-06-29 19:50] LABS: Amphetamine Screen,Urine Neg (Neg); Barbiturate Screen,Urine Neg (Neg); Cannabinoid Screen,Urine Neg (Neg); Cocaine Screen,Urine Neg (Neg)
[2018-06-29 19:55] LABS: Opiate Screen,Urine Neg (Neg)
[2018-06-29] MEDS: traZODone 50 MG Tablet PO PRN ×2 (21:42→23:15)
[2018-06-30] MEDS: ceFAZolin 2 GM Premix Inj 2 GM/50 ML PIGGYBACK IV.SIG SCH ×3 (06:58→22:54)
[2018-06-30] MEDS: Morphine Sulfate Inj 2 MG/ML Vial IV.PUSH PRN ×3 (07:02→22:55)
--- NOTE | 2018-06-30 08:30 | P.PNFP ---
Subjective Interval history: Patient was seen and evaluated this morning. She is doing well. She denies chest pain, shortness of breath, nausea. vomiting, diarrhea and constipation. She reports twitching of thighs bilaterally; twitching comes and goes and is painless. We discussed outpatient follow-up. Patient to call [facility]. All questions were answered. <Alexis JaquezRaysaAngeline - 06/30/18 10:56> Results - Labs Result diagrams: 06/27/18 05:30 06/27/18 05:30 <Abiodun Puente - 07/01/18 11:30> Physical Exam Vital signs: Vital Signs 06/30/18 12:00 06/30/18 16:00 06/30/18 19:59 Temperature 97.6 F 97.9 F 97.9 F Pulse Rate 90 88 77 Respiratory Rate 17 16 17 Blood Pressure 119/69 111/61 110/68 Pulse Oximetry 97 99 98 07/01/18 00:00 07/01/18 04:03 07/01/18 08:00 Temperature 97.8 F 98.2 F Pulse Rate 71 60 Respiratory Rate 18 18 16 Blood Pressure 104/51 L 123/55 L Pulse Oximetry 99 98 Intake & Output 06/30/18 07/01/18 07/01/18 18:59 06:59 18:59 Intake Total 725 / 725 Balance 725 / 725 Weight 57.6 kg Intake: IV 150 / 150 Ancef 2 GM Premix Inj 2 gm In 150 / 150 50 ml @ 100 mls/hr IV.SIG Q8H [facility] Rx#:[id number] Oral 575 / 575 Other: # Voids 3 Date of Last Bowel Movement 06/29/18 06/30/18 # Bowel Movements 0 <Abiodun Puente R - 07/01/18 11:30> Vital Signs 06/29/18 12:00 06/29/18 16:00 06/29/18 20:00 Temperature 97.9 F 97.2 F L 98.1 F Pulse Rate 76 73 69 Respiratory Rate 18 18 16 Blood Pressure 105/61 106/58 L 117/64 Pulse Oximetry 95 97 98 06/30/18 00:00 Temperature 97.0 F L Pulse Rate 55 L Respiratory Rate 18 Blood Pressure 99/57 L Pulse Oximetry 99 Intake & Output 02/1006/30/18 06/30/18 18:59 06:59 18:59 Intake Total 1849 50 / 50 Balance 1849 50 / 50 Intake: IV 50 / 50 50 / 50 Ancef 2 GM Premix Inj 2 gm In 50 / 50 50 / 50 50 ml @ 100 mls/hr IV.SIG Q8H [facility] Rx#:[id number] Oral 1800 / 1800 Other: # Voids 4 3 Date of Last Bowel Movement 06/28/18 <Angeline Kirk - 06/30/18 08:30> Narrative: GENERAL: female, laying in bed playing on the computer, in no acute distress. EYES: Pupils equal and round. No scleral icterus. No injection or drainage. CARDIOVASCULAR: Regular rate and rhythm, no murmurs, rubs, or gallops. RESPIRATORY: No accessory muscle use. Clear to auscultation. Breath sounds equal bilaterally. EXTREMITY: Left lateral hip incision healing well. NEUROLOGICAL: Awake and alert. <Angeline Kirk - 06/30/18 10:56> Assessment and Plan - Assessment (1) Bacterial arthritis of right hip Code(s): M00.851 - Arthritis due to other bacteria, right hip Status: Acute (2) Anemia Code(s): D64.9 - Anemia, unspecified Status: Chronic (3) Polysubstance abuse Code(s): F19.10 - Other psychoactive substance abuse, uncomplicated Status: Chronic (4) Cachexia Code(s): R64 - Cachexia Status: Chronic (5) Hepatitis C Code(s): B19.20 - Unspecified viral hepatitis C without hepatic coma Status: Chronic (6) Nutrition, metabolism, and development symptoms Code(s): R63.8 - Other symptoms and signs concerning food and fluid intake Status: Acute <Abiodun Puente - 07/01/18 11:30> (1) Bacterial arthritis of right hip Code(s): M00.851 - Arthritis due to other bacteria, right hip Status: Acute Plan: Well healed incision. Patient ambulating well. Ancef (05/14 - 07/10). Follow labs while on IV Abx: weekly CBC, creatinine. Next lab draw- July 04 Continue pain management: Ibuprofen 800mg PO q8hr. Gabapentin 300mg PO TID. Decrease morphine from 1mg q6hr to q8hr PRN Pain 7-10. Increase Methadone PO 30mg to 40mg daily. Patient to be discharged on methadone for pain control. Hospital Course: S/p right proximal femur resection (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 Incision site closure with eh. Sumner removed. Tissue culture from 05/16 negative for growth. PT following. (2) Anemia Code(s): D64.9 - Anemia, unspecified Status: Chronic Plan: Stable at 10.2. Repeat CBC on 07/04/18. Microcytic, likely secondary to iron deficiency. Continue daily ferrous sulfate. (3) Polysubstance abuse Code(s): F19.10 - Other psychoactive substance abuse, uncomplicated Status: Chronic Plan: Patient with history of IVDU (heroin, dilaudid, and other narcotics) and smoker. Continue methadone as above. Patient to be discharged on methadone. Patient has an appointment at the methadone clinic on July 14. Case management following. UDS 06/25/18 - negative. UDS 06/29/18 - negative. (4) Cachexia Code(s): R64 - Cachexia Status: Chronic Plan: Gaining weight. (5) Hepatitis C Code(s): B19.20 - Unspecified viral hepatitis C without hepatic coma Status: Chronic Plan: Patient with history of hepatitis C. Will require outpatient f/u and treatment. (6) Nutrition, metabolism, and development symptoms Code(s): R63.8 - Other symptoms and signs concerning food and fluid intake Status: Acute Plan: Fluid: Tolerating PO. Diet: Regular with supplementation. Electrolytes: Monitor and replete as necessary. <Angeline Kirk - 06/30/18 10:24> - Assessment and Plan Discharge Planning: Antibiotic treatment to conclude 07/10/18. Discharge pending completion of antibiotic course. <Angeline Kirk - 06/30/18 08:30> - Attending Attestation his patient was seen and evaluated with the resident physician. I agree with the plan of care as discussed with me and documented in the resident note. Abiodun Puente MD <Abiodun Puente - 07/01/18 11:30>
[2018-06-30] MEDS: Methadone 10 MG Tablet PO SCH (09:23)
[2018-06-30] MEDS: Senna/Docusate Sodium 8.6/50 MG Tablet PO SCH ×2 (09:23→22:54)
[2018-06-30] MEDS: Ferrous Sulfate 325 MG Tablet PO SCH (09:23)
[2018-06-30] MEDS: Enoxaparin Inj 40 MG/0.4 ML Syringe SQ SCH (09:23)
[2018-06-30] MEDS: Gabapentin 300 MG Capsule PO SCH ×3 (09:23→17:41)
[2018-06-30] MEDS: traZODone 50 MG Tablet PO PRN (22:53)
[2018-07-01] MEDS: ceFAZolin 2 GM Premix Inj 2 GM/50 ML PIGGYBACK IV.SIG SCH ×3 (06:11→22:29)
[2018-07-01] MEDS: Morphine Sulfate Inj 2 MG/ML Vial IV.PUSH PRN ×3 (06:45→23:20)
--- NOTE | 2018-07-01 08:15 | P.PNFP ---
Subjective Interval history: Patient seen and examined at bedside today. She has no new complaints. She completed 7 laps around the floor yesterday using her crutches. Her arms are a bit sore. She denied any chest pain, shortness of breath, abdominal pain, leg swelling. She is requiring milk of magnesia for bowel movements, but is having bowel movements daily. She may be having visitors tomorrow, her mother and sister. <LannatalieBrenda Duke A - 07/01/18 08:15> Results - Labs Result diagrams: 06/27/18 05:30 06/27/18 05:30 <Abiodun Puente R - 07/01/18 11:46> Physical Exam Vital signs: Vital Signs 06/30/18 12:00 06/30/18 16:00 06/30/18 19:59 Temperature 97.6 F 97.9 F 97.9 F Pulse Rate 90 88 77 Respiratory Rate 17 16 17 Blood Pressure 119/69 111/61 110/68 Pulse Oximetry 97 99 98 07/01/18 00:00 07/01/18 04:03 07/01/18 08:00 Temperature 97.8 F 98.2 F Pulse Rate 71 60 Respiratory Rate 18 18 16 Blood Pressure 104/51 L 123/55 L Pulse Oximetry 99 98 Intake & Output 06/30/18 07/01/18 07/01/18 18:59 06:59 18:59 Intake Total 725 / 725 Balance 725 / 725 Weight 57.6 kg Intake: IV 150 / 150 Ancef 2 GM Premix Inj 2 gm In 150 / 150 50 ml @ 100 mls/hr IV.SIG Q8H [facility] Rx#:[id number] Oral 575 / 575 Other: # Voids 3 Date of Last Bowel Movement 06/29/18 06/30/18 # Bowel Movements 0 <Abiodun Puente R - 07/01/18 11:46> Vital Signs 06/30/18 12:00 06/30/18 16:00 06/30/18 19:59 Temperature 97.6 F 97.9 F 97.9 F Pulse Rate 90 88 77 Respiratory Rate 17 16 17 Blood Pressure 119/69 111/61 110/68 Pulse Oximetry 97 99 98 07/01/18 00:00 07/01/18 04:03 Temperature 97.8 F Pulse Rate 71 Respiratory Rate 18 18 Blood Pressure 104/51 L Pulse Oximetry 99 Intake & Output 06/30/18 07/01/18 07/01/18 18:59 06:59 18:59 Intake Total 725 / 725 Balance 725 / 725 Weight 57.6 kg Intake: IV 150 / 150 Ancef 2 GM Premix Inj 2 gm In 150 / 150 50 ml @ 100 mls/hr IV.SIG Q8H [facility] Rx#:[id number] Oral 575 / 575 Other: # Voids 3 Date of Last Bowel Movement 06/29/18 06/30/18 # Bowel Movements 0 <Brenda Busch - 07/01/18 08:15> Narrative: GENERAL: female, laying in bed, in no acute distress. EYES: Pupils equal and round. No scleral icterus. No injection or drainage. CARDIOVASCULAR: Regular rate and rhythm, no murmurs, rubs, or gallops. RESPIRATORY: No accessory muscle use. Clear to auscultation. Breath sounds equal bilaterally. EXTREMITY: Left lateral hip incision healing well. NEUROLOGICAL: Awake and alert. <Brenda Busch - 07/01/18 08:15> Assessment and Plan - Assessment (1) Bacterial arthritis of right hip Code(s): M00.851 - Arthritis due to other bacteria, right hip Status: Acute (2) Anemia Code(s): D64.9 - Anemia, unspecified Status: Chronic (3) Polysubstance abuse Code(s): F19.10 - Other psychoactive substance abuse, uncomplicated Status: Chronic (4) Cachexia Code(s): R64 - Cachexia Status: Chronic (5) Hepatitis C Code(s): B19.20 - Unspecified viral hepatitis C without hepatic coma Status: Chronic (6) Nutrition, metabolism, and development symptoms Code(s): R63.8 - Other symptoms and signs concerning food and fluid intake Status: Acute <Abiodun Puente - 07/01/18 11:46> (1) Bacterial arthritis of right hip Code(s): M00.851 - Arthritis due to other bacteria, right hip Status: Acute Plan: Well healed incision. Patient ambulating well. Ancef (05/14 - 07/10). Follow labs while on IV Abx: weekly CBC, creatinine. Next lab draw- July 04 Continue pain management: Ibuprofen 800mg PO q8hr. Gabapentin 300mg PO TID. Continue morphine q8hr PRN Pain 7-10. Continue methadone PO 40mg daily. Patient to be discharged on methadone for pain control. She will follow-up with the methadone clinic on July 14. Hospital Course: S/p right proximal femur resection (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 Incision site closure with jimy. Jimy removed. Tissue culture from 05/16 negative for growth. PT following. (2) Anemia Code(s): D64.9 - Anemia, unspecified Status: Chronic Plan: Stable at 10.2. Repeat CBC on 07/04/18. Microcytic, likely secondary to iron deficiency. Continue daily ferrous sulfate. (3) Polysubstance abuse Code(s): F19.10 - Other psychoactive substance abuse, uncomplicated Status: Chronic Plan: Patient with history of IVDU (heroin, dilaudid, and other narcotics) and smoker. Continue methadone as above. Patient to be discharged on methadone. Patient has an appointment at the methadone clinic on July 14. Case management following. UDS 06/25/18 - negative. UDS 06/29/18 - negative. (4) Cachexia Code(s): R64 - Cachexia Status: Chronic Plan: Gaining weight. (5) Hepatitis C Code(s): B19.20 - Unspecified viral hepatitis C without hepatic coma Status: Chronic Plan: Patient with history of hepatitis C. Will require outpatient f/u and treatment. (6) Nutrition, metabolism, and development symptoms Code(s): R63.8 - Other symptoms and signs concerning food and fluid intake Status: Acute Plan: Fluid: Tolerating PO. Diet: Regular with supplementation. Electrolytes: Monitor and replete as necessary. <Brenda Busch - 07/01/18 08:11> - Assessment and Plan Discharge Planning: Antibiotic treatment to conclude 07/10/18. Discharge pending completion of antibiotic course. Patient has an appointment with the methadone clinic on July 14. <Brenda Busch - 07/01/18 08:15> - Attending Attestation This patient was seen and evaluated with the resident physician. I agree with the plan of care as discussed with me and documented in the resident note. Abiodun Puente MD <Abiodun Puente R - 07/01/18 11:46>
[2018-07-01] MEDS: Enoxaparin Inj 40 MG/0.4 ML Syringe SQ SCH (10:34)
[2018-07-01] MEDS: Ferrous Sulfate 325 MG Tablet PO SCH (10:34)
[2018-07-01] MEDS: Senna/Docusate Sodium 8.6/50 MG Tablet PO SCH ×2 (10:34→22:31)
[2018-07-01] MEDS: Gabapentin 300 MG Capsule PO SCH ×3 (10:34→18:55)
[2018-07-01] MEDS: Methadone 10 MG Tablet PO SCH (10:35)
[2018-07-01] MEDS: traZODone 50 MG Tablet PO PRN (22:30)
[2018-07-02] MEDS: ceFAZolin 2 GM Premix Inj 2 GM/50 ML PIGGYBACK IV.SIG SCH ×3 (06:09→22:20)
--- NOTE | 2018-07-02 08:32 | P.PNFP ---
Subjective Interval history: Patient was seen and evaluated this morning. She reports feeling tired. She denies chest pain, shortness of breath, nausea, vomiting, diarrhea and constipation. She denies URI symptoms. Patient reports "some" hip pain. She has started to work with PT on walking up stairs in preparation of going home and living at her mom's place. Her living situation upon discharge was discussed at length. While living at her mom's house will limit exposure to people who actively use drugs, patient will be sleeping on sofa, which may likely exacerbate patient's physical pains. Patient does not have anybody else she can live with. Patient has a phone appointment with [facility] on July 08. All questions were answered. <Angeline Kirk - 07/02/18 10:29> Results - Labs Result diagrams: 07/04/18 06:22 07/04/18 06:22 <Abiodun Puente - 07/04/18 09:53> Abnormal lab results 07/04/18 07/04/18 Range/Units 06:22 06:22 WBC 3.3 L (4.0-11.0) th/mm3 Hgb 10.4 L (11.6-15.3) gm/dL Hct 31.2 L (35.0-46.0) % MCV 77.5 L (80.0-100.0) fL MCH 25.9 L (27.0-34.0) pg RDW 22.9 H (11.6-17.2) % Lymph % (Auto) 46.0 H (9.0-44.0) % Major % (Auto) 12.1 H (0.0-8.0) % Eos % (Auto) 6.1 H (0.0-4.0) % Neut # (Auto) 1.1 L (1.8-7.7) th/mm3 Dimorphic RBCs Present H (None) Carbon Dioxide 33.0 H (21.0-32.0) meq/L BUN 24 H (7-18) mg/dL Short CBC 07/04/18 Range/Units 06:22 WBC 3.3 L (4.0-11.0) th/mm3 Hgb 10.4 L (11.6-15.3) gm/dL Hct 31.2 L (35.0-46.0) % Plt Count 190 (150-450) th/mm3 BMP 07/04/18 06:22 Sodium 141 Potassium 4.2 Chloride 103 Carbon Dioxide 33.0 H BUN 24 H Creatinine 0.70 Calcium 9.2 <Abiodun Puente R - 07/04/18 09:53> Abnormal lab results 07/01/18 Range/Units 12:45 ESR 43 H (0-20) mm/hr <Alexis Raysa Jaquezin - 07/02/18 08:32> Physical Exam Vital signs: Vital Signs 07/03/18 12:00 07/03/18 16:00 07/03/18 20:00 Temperature 97.6 F 97.8 F 97.7 F Pulse Rate 67 73 73 Respiratory Rate 16 17 18 Blood Pressure 105/66 112/53 L 115/56 L Pulse Oximetry 99 92 L 99 07/03/18 23:02 07/04/18 00:00 07/04/18 08:00 Temperature 97.9 F 97.7 F Pulse Rate 73 64 Respiratory Rate 18 17 17 Blood Pressure 100/53 L 133/70 Pulse Oximetry 95 99 Intake & Output 07/03/18 07/04/18 07/04/18 18:59 06:59 18:59 Intake Total 520 / 520 660 / 660 Balance 520 / 520 660 / 660 Weight 61.6 kg Intake: IV 100 / 100 100 / 100 Ancef 2 GM Premix Inj 2 gm In 100 / 100 100 / 100 50 ml @ 100 mls/hr IV.SIG Q8H [facility] Rx#:[id number] Oral 420 / 420 560 / 560 Other: # Voids 3 # Urine Diapers 3 Date of Last Bowel Movement 07/03/18 # Bowel Movements 0 <Abiodun Puente R - 07/04/18 09:53> Vital Signs 07/01/18 11:05 07/01/18 12:00 07/01/18 15:30 Temperature 97.6 F Pulse Rate 74 Respiratory Rate 18 18 18 Blood Pressure 134/64 Pulse Oximetry 99 07/01/18 16:00 07/01/18 20:00 07/02/18 00:00 Temperature 97.6 F 97.7 F 98.1 F Pulse Rate 67 70 73 Respiratory Rate 18 17 17 Blood Pressure 111/50 L 102/53 L 101/57 L Pulse Oximetry 99 98 98 07/02/18 08:00 Temperature 98.2 F Pulse Rate 65 Respiratory Rate 17 Blood Pressure 120/64 Pulse Oximetry 97 Intake & Output 07/01/18 07/02/18 07/02/18 18:59 06:59 18:59 Intake Total 1010 / 1010 750 / 750 Balance 1010 / 1010 750 / 750 Weight 61.6 kg Intake: IV 50 / 50 100 / 100 Ancef 2 GM Premix Inj 2 gm In 50 / 50 100 / 100 50 ml @ 100 mls/hr IV.SIG Q8H [facility] Rx#:[id number] Oral 960 / 960 650 / 650 Other: # Voids 3 3 # Bowel Movements 0 0 <Angeline Kirk - 07/02/18 08:32> Narrative: GENERAL: female, laying in bed, in no acute distress. EYES: Pupils equal and round. No scleral icterus. No injection or drainage. CARDIOVASCULAR: Regular rate and rhythm, no murmurs, rubs, or gallops. RESPIRATORY: No accessory muscle use. Clear to auscultation. Breath sounds equal bilaterally. EXTREMITY: Left lateral hip incision healing well. NEUROLOGICAL: Awake and alert. <Angeline Kirk - 07/02/18 10:29> Assessment and Plan - Assessment (1) Bacterial arthritis of right hip Code(s): M00.851 - Arthritis due to other bacteria, right hip Status: Acute (2) Anemia Code(s): D64.9 - Anemia, unspecified Status: Chronic (3) Polysubstance abuse Code(s): F19.10 - Other psychoactive substance abuse, uncomplicated Status: Chronic (4) Cachexia Code(s): R64 - Cachexia Status: Chronic (5) Hepatitis C Code(s): B19.20 - Unspecified viral hepatitis C without hepatic coma Status: Chronic (6) Nutrition, metabolism, and development symptoms Code(s): R63.8 - Other symptoms and signs concerning food and fluid intake Status: Acute <Abiodun Puente - 07/04/18 09:53> (1) Bacterial arthritis of right hip Code(s): M00.851 - Arthritis due to other bacteria, right hip Status: Acute Plan: Well healed incision. Patient ambulating well. Ancef (05/14 - 07/10). Follow labs while on IV Abx: weekly CBC, creatinine. Next lab draw- July 04 Continue pain management: Ibuprofen 800mg PO q8hr. Gabapentin 300mg PO TID. Continue morphine q8hr PRN Pain 7-10. Continue methadone PO 40mg daily. Patient to be discharged on methadone for pain control. She will follow-up with the methadone clinic on July 14. Hospital Course: S/p right proximal femur resection (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 Incision site closure with eh. [place] removed. Tissue culture from 05/16 negative for growth. PT following. (2) Anemia Code(s): D64.9 - Anemia, unspecified Status: Chronic Plan: Stable at 10.2. Repeat CBC on 07/04/18. Microcytic, likely secondary to iron deficiency. Continue daily ferrous sulfate. (3) Polysubstance abuse Code(s): F19.10 - Other psychoactive substance abuse, uncomplicated Status: Chronic Plan: Patient with history of IVDU (heroin, dilaudid, and other narcotics) and smoker. Continue methadone as above. Patient to be discharged on methadone. Patient has an appointment at the methadone clinic on July 14. Case management following. UDS 06/25/18 - negative. UDS 06/29/18 - negative. (4) Cachexia Code(s): R64 - Cachexia Status: Chronic Plan: Gaining weight. (5) Hepatitis C Code(s): B19.20 - Unspecified viral hepatitis C without hepatic coma Status: Chronic Plan: Patient with history of hepatitis C. Will require outpatient f/u and treatment. (6) Nutrition, metabolism, and development symptoms Code(s): R63.8 - Other symptoms and signs concerning food and fluid intake Status: Acute Plan: Fluid: Tolerating PO. Diet: Regular with supplementation. Electrolytes: Monitor and replete as necessary. <Angeline Kirk - 07/02/18 10:17> - Assessment and Plan Discharge Planning: Antibiotic treatment to conclude 07/10/18. Discharge pending completion of antibiotic course. <Angeline Kirk - 07/02/18 10:29> - Attending Attestation This patient was seen and evaluated with the resident physician. I agree with the plan of care as discussed with me and documented in the resident note. Abiodun Puente MD <Abiodun Puente - 07/04/18 09:53>
[2018-07-02] MEDS: Gabapentin 300 MG Capsule PO SCH ×3 (09:19→17:51)
[2018-07-02] MEDS: Methadone 10 MG Tablet PO SCH (09:19)
[2018-07-02] MEDS: Ferrous Sulfate 325 MG Tablet PO SCH (09:19)
[2018-07-02] MEDS: Senna/Docusate Sodium 8.6/50 MG Tablet PO SCH ×2 (09:20→22:21)
[2018-07-02] MEDS: Enoxaparin Inj 40 MG/0.4 ML Syringe SQ SCH (09:20)
[2018-07-02] MEDS: Morphine Sulfate Inj 2 MG/ML Vial IV.PUSH PRN ×2 (09:22→17:51)
[2018-07-02] MEDS: traZODone 50 MG Tablet PO PRN (22:21)
[2018-07-03] MEDS: Morphine Sulfate Inj 2 MG/ML Vial IV.PUSH PRN ×3 (02:22→18:33)
[2018-07-03] MEDS: ceFAZolin 2 GM Premix Inj 2 GM/50 ML PIGGYBACK IV.SIG SCH ×3 (06:04→21:47)
[2018-07-03] MEDS: Enoxaparin Inj 40 MG/0.4 ML Syringe SQ SCH (09:51)
[2018-07-03] MEDS: Gabapentin 300 MG Capsule PO SCH ×3 (09:52→18:33)
[2018-07-03] MEDS: Senna/Docusate Sodium 8.6/50 MG Tablet PO SCH ×2 (09:52→21:47)
[2018-07-03] MEDS: Ferrous Sulfate 325 MG Tablet PO SCH (09:52)
[2018-07-03] MEDS: Methadone 10 MG Tablet PO SCH (09:52)
--- NOTE | 2018-07-03 11:55 | P.PNFP ---
Subjective Interval history: Patient was seen and evaluated this morning. She reports feeling well but tired. She reports walking eight rounds on the floor yesterday, thus, feels a bit sore today. Patient is sad because she did not have visitors yesterday. Visitors rescheduled for Saturday. She denies chest pain, shortness of breath, nausea, vomiting, diarrhea and constipation. All questions were answered. <Alexis JaquezRaysaAngeline - 07/03/18 11:54> Results - Labs Result diagrams: 07/04/18 06:22 07/04/18 06:22 <Abiodun Puente - 07/04/18 10:17> Abnormal lab results 07/04/18 07/04/18 Range/Units 06:22 06:22 WBC 3.3 L (4.0-11.0) th/mm3 Hgb 10.4 L (11.6-15.3) gm/dL Hct 31.2 L (35.0-46.0) % MCV 77.5 L (80.0-100.0) fL MCH 25.9 L (27.0-34.0) pg RDW 22.9 H (11.6-17.2) % Lymph % (Auto) 46.0 H (9.0-44.0) % [place] % (Auto) 12.1 H (0.0-8.0) % Eos % (Auto) 6.1 H (0.0-4.0) % Neut # (Auto) 1.1 L (1.8-7.7) th/mm3 Dimorphic RBCs Present H (None) Carbon Dioxide 33.0 H (21.0-32.0) meq/L BUN 24 H (7-18) mg/dL Short CBC 07/04/18 Range/Units 06:22 WBC 3.3 L (4.0-11.0) th/mm3 Hgb 10.4 L (11.6-15.3) gm/dL Hct 31.2 L (35.0-46.0) % Plt Count 190 (150-450) th/mm3 [facility] 07/04/18 06:22 Sodium 141 Potassium 4.2 Chloride 103 Carbon Dioxide 33.0 H BUN 24 H Creatinine 0.70 Calcium 9.2 <Abiodun Puente R - 07/04/18 10:17> Physical Exam Vital signs: Vital Signs 07/03/18 12:00 07/03/18 16:00 07/03/18 20:00 Temperature 97.6 F 97.8 F 97.7 F Pulse Rate 67 73 73 Respiratory Rate 16 17 18 Blood Pressure 105/66 112/53 L 115/56 L Pulse Oximetry 99 92 L 99 07/03/18 23:02 07/04/18 00:00 07/04/18 08:00 Temperature 97.9 F 97.7 F Pulse Rate 73 64 Respiratory Rate 18 17 17 Blood Pressure 100/53 L 133/70 Pulse Oximetry 95 99 Intake & Output 07/03/18 07/04/18 07/04/18 18:59 06:59 18:59 Intake Total 520 / 520 660 / 660 Balance 520 / 520 660 / 660 Weight 61.6 kg Intake: IV 100 / 100 100 / 100 Ancef 2 GM Premix Inj 2 gm In 100 / 100 100 / 100 50 ml @ 100 mls/hr IV.SIG Q8H [facility] Rx#:[id number] Oral 420 / 420 560 / 560 Other: # Voids 3 # Urine Diapers 3 Date of Last Bowel Movement 07/03/18 # Bowel Movements 0 <Abiodun Puente R - 07/04/18 10:17> Vital Signs 07/02/18 12:00 07/02/18 14:53 07/02/18 15:46 Temperature 97.4 F L 97.6 F Pulse Rate 77 84 Respiratory Rate 17 17 16 Blood Pressure 107/57 L 111/65 Pulse Oximetry 98 96 07/02/18 18:00 07/02/18 20:00 07/03/18 00:00 Temperature 98.2 F 97.7 F Pulse Rate 78 79 Respiratory Rate 16 20 20 Blood Pressure 107/52 L 108/54 L Pulse Oximetry 97 97 07/03/18 08:00 Temperature 98.2 F Pulse Rate 55 L Respiratory Rate 17 Blood Pressure 126/62 Pulse Oximetry 100 Intake & Output 07/02/18 07/03/18 07/03/18 18:59 06:59 18:59 Intake Total 50 / 50 50 / 50 Balance 50 / 50 50 / 50 Intake: IV 50 / 50 50 / 50 Ancef 2 GM Premix Inj 2 gm In 50 / 50 50 / 50 50 ml @ 100 mls/hr IV.SIG Q8H [facility] Rx#:[id number] <Angeline Kirk - 07/03/18 11:54> Narrative: GENERAL: female, laying in bed, in no acute distress. EYES: Pupils equal and round. No scleral icterus. No injection or drainage. CARDIOVASCULAR: Regular rate and rhythm, no murmurs, rubs, or gallops. RESPIRATORY: No accessory muscle use. Clear to auscultation. Breath sounds equal bilaterally. EXTREMITY: Left lateral hip incision healing well. NEUROLOGICAL: Awake and alert. <Angeline Kirk - 07/03/18 11:54> Assessment and Plan - Assessment (1) Bacterial arthritis of right hip Code(s): M00.851 - Arthritis due to other bacteria, right hip Status: Acute (2) Anemia Code(s): D64.9 - Anemia, unspecified Status: Chronic (3) Polysubstance abuse Code(s): F19.10 - Other psychoactive substance abuse, uncomplicated Status: Chronic (4) Cachexia Code(s): R64 - Cachexia Status: Chronic (5) Hepatitis C Code(s): B19.20 - Unspecified viral hepatitis C without hepatic coma Status: Chronic (6) Nutrition, metabolism, and development symptoms Code(s): R63.8 - Other symptoms and signs concerning food and fluid intake Status: Acute <Abiodun Puente - 07/04/18 10:17> (1) Bacterial arthritis of right hip Code(s): M00.851 - Arthritis due to other bacteria, right hip Status: Acute Plan: Well healed incision. Patient ambulating well. Ancef (05/14 - 07/10). Follow labs while on IV Abx: weekly CBC, creatinine. Next lab draw- July 04 Continue pain management: Ibuprofen 800mg PO q8hr. Gabapentin 300mg PO TID. Continue morphine q8hr PRN Pain 7-10. Continue methadone PO 40mg daily. Patient to be discharged on methadone for pain control. She will follow-up with the methadone clinic on July 14. Hospital Course: S/p right proximal femur resection (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 Incision site closure with jimy. Jimy removed. Tissue culture from 05/16 negative for growth. PT following. (2) Anemia Code(s): D64.9 - Anemia, unspecified Status: Chronic Plan: Stable at 10.2. Repeat CBC on 07/04/18. Microcytic, likely secondary to iron deficiency. Continue daily ferrous sulfate. (3) Polysubstance abuse Code(s): F19.10 - Other psychoactive substance abuse, uncomplicated Status: Chronic Plan: Patient with history of IVDU (heroin, dilaudid, and other narcotics) and smoker. Continue methadone as above. Patient to be discharged on methadone. Patient has an appointment at the methadone clinic on July 14. Case management following. UDS 06/25/18 - negative. UDS 06/29/18 - negative. (4) Cachexia Code(s): R64 - Cachexia Status: Chronic Plan: Gaining weight. (5) Hepatitis C Code(s): B19.20 - Unspecified viral hepatitis C without hepatic coma Status: Chronic Plan: Patient with history of hepatitis C. Will require outpatient f/u and treatment. (6) Nutrition, metabolism, and development symptoms Code(s): R63.8 - Other symptoms and signs concerning food and fluid intake Status: Acute Plan: Fluid: Tolerating PO. Diet: Regular with supplementation. Electrolytes: Monitor and replete as necessary. <Angeline Kirk - 07/03/18 11:47> - Assessment and Plan Discharge Planning: Antibiotic treatment to conclude 07/10/18. Discharge pending completion of antibiotic course. <Angeline Kirk - 07/03/18 11:54> - Attending Attestation This patient was seen and evaluated with the resident physician. I agree with the plan of care as discussed with me and documented in the resident note. Abiodun Puente MD <Abiodun Puente - 07/04/18 10:17>
[2018-07-03] MEDS: traZODone 50 MG Tablet PO PRN (21:55)
[2018-07-04] MEDS: ceFAZolin 2 GM Premix Inj 2 GM/50 ML PIGGYBACK IV.SIG SCH ×3 (05:47→21:58)
[2018-07-04] MEDS: Morphine Sulfate Inj 2 MG/ML Vial IV.PUSH PRN ×3 (05:48→21:57)
[2018-07-04 06:48] LABS: Baso # (Auto) 0.1 th/mm3 (0.0-0.2); Baso % (Auto) 1.7 % (0.0-2.0); Eos # (Auto) 0.2 th/mm3 (0.0-0.4); Eos % (Auto) 6.1 % (0.0-4.0); Hematocrit 31.2 % (35.0-46.0); Hemoglobin 10.4 gm/dL (11.6-15.3); Lymph # (Auto) 1.5 th/mm3 (1.0-4.8); Mean Corpuscular HGB Conc 33.4 % (32.0-36.0); Mean Corpuscular Hemoglobin 25.9 pg (27.0-34.0); Mean Corpuscular Volume 77.5 fL (80.0-100.0); Mean Platelet Volume 7.9 fL (7.0-11.0); Mono # (Auto) 0.4 th/mm3 (0.0-0.9); Mono % (Auto) 12.1 % (0.0-8.0); Neut # (Auto) 1.1 th/mm3 (1.8-7.7); Neut % (Auto) 34.1 % (16.0-70.0); Platelet Count 190 th/mm3 (150-450); Red Blood Count 4.03 mil/mm3 (4.00-5.30); Red Cell Distribution Width 22.9 % (11.6-17.2); White Blood Count 3.3 th/mm3 (4.0-11.0)
[2018-07-04 07:09] LABS: Anion Gap 5 meq/L (5-15); Blood Urea Nitrogen 24 mg/dL (7-18); Calcium 9.2 mg/dL (8.5-10.1); Chloride 103 meq/L (98-107); Glomerular Filtration Rate Greater Than 89 mL/min (>89); Glucose,Random 102 mg/dL (74-106); Potassium 4.2 meq/L (3.5-5.1); Sodium 141 meq/L (136-145)
[2018-07-04] MEDS: Enoxaparin Inj 40 MG/0.4 ML Syringe SQ SCH (08:26)
[2018-07-04] MEDS: Senna/Docusate Sodium 8.6/50 MG Tablet PO SCH ×2 (08:26→21:57)
[2018-07-04] MEDS: Ferrous Sulfate 325 MG Tablet PO SCH (08:27)
[2018-07-04] MEDS: Gabapentin 300 MG Capsule PO SCH ×3 (08:27→19:21)
[2018-07-04] MEDS: Methadone 10 MG Tablet PO SCH (08:27)
--- NOTE | 2018-07-04 08:49 | P.PNFP ---
Subjective Interval history: Patient seen and examined at bedside today. She is excited because her mother and sister are coming to visit this morning. I discussed with her decreasing her morphine dose today. She voiced understanding. She denied any chest pain, shortness of breath, abdominal pain, nausea, vomiting, constipation. <Areli Brenda Jacobson - 07/04/18 11:16> Results - Labs Result diagrams: 07/04/18 06:22 07/04/18 06:22 <Abiodun Puente R - 07/04/18 13:42> Abnormal lab results 07/04/18 07/04/18 Range/Units 06:22 06:22 WBC 3.3 L (4.0-11.0) th/mm3 Hgb 10.4 L (11.6-15.3) gm/dL Hct 31.2 L (35.0-46.0) % MCV 77.5 L (80.0-100.0) fL MCH 25.9 L (27.0-34.0) pg RDW 22.9 H (11.6-17.2) % Lymph % (Auto) 46.0 H (9.0-44.0) % Gordon % (Auto) 12.1 H (0.0-8.0) % Eos % (Auto) 6.1 H (0.0-4.0) % Neut # (Auto) 1.1 L (1.8-7.7) th/mm3 Dimorphic RBCs Present H (None) Carbon Dioxide 33.0 H (21.0-32.0) meq/L BUN 24 H (7-18) mg/dL Short CBC 07/04/18 Range/Units 06:22 WBC 3.3 L (4.0-11.0) th/mm3 Hgb 10.4 L (11.6-15.3) gm/dL Hct 31.2 L (35.0-46.0) % Plt Count 190 (150-450) th/mm3 BMP 07/04/18 06:22 Sodium 141 Potassium 4.2 Chloride 103 Carbon Dioxide 33.0 H BUN 24 H Creatinine 0.70 Calcium 9.2 <Abiodun Puente R - 07/04/18 13:42> Abnormal lab results 07/04/18 07/04/18 Range/Units 06:22 06:22 WBC 3.3 L (4.0-11.0) th/mm3 Hgb 10.4 L (11.6-15.3) gm/dL Hct 31.2 L (35.0-46.0) % MCV 77.5 L (80.0-100.0) fL MCH 25.9 L (27.0-34.0) pg RDW 22.9 H (11.6-17.2) % Lymph % (Auto) 46.0 H (9.0-44.0) % Gordon % (Auto) 12.1 H (0.0-8.0) % Eos % (Auto) 6.1 H (0.0-4.0) % Neut # (Auto) 1.1 L (1.8-7.7) th/mm3 Carbon Dioxide 33.0 H (21.0-32.0) meq/L BUN 24 H (7-18) mg/dL Short CBC 07/04/18 Range/Units 06:22 WBC 3.3 L (4.0-11.0) th/mm3 Hgb 10.4 L (11.6-15.3) gm/dL Hct 31.2 L (35.0-46.0) % Plt Count 190 (150-450) th/mm3 BMP 07/04/18 06:22 Sodium 141 Potassium 4.2 Chloride 103 Carbon Dioxide 33.0 H BUN 24 H Creatinine 0.70 Calcium 9.2 <Areli JacobsonBrenda A - 07/04/18 08:48> Physical Exam Vital signs: Vital Signs 07/03/18 16:00 07/03/18 20:00 07/03/18 23:02 Temperature 97.8 F 97.7 F Pulse Rate 73 73 Respiratory Rate 17 18 18 Blood Pressure 112/53 L 115/56 L Pulse Oximetry 92 L 99 07/04/18 00:00 07/04/18 08:00 07/04/18 12:00 Temperature 97.9 F 97.7 F 97.6 F Pulse Rate 73 64 87 Respiratory Rate 17 16 17 Blood Pressure 100/53 L 133/70 106/63 Pulse Oximetry 95 99 95 07/04/18 13:30 Temperature 97.7 F Pulse Rate 87 Respiratory Rate 16 Blood Pressure 106/63 Pulse Oximetry 96 Intake & Output 07/03/18 07/04/1807/04/19 18:59 06:59 18:59 Intake Total 520 / 520 660 / 660 Balance 520 / 520 660 / 660 Weight 61.6 kg Intake: IV 100 / 100 100 / 100 Ancef 2 GM Premix Inj 2 gm In 100 / 100 100 / 100 50 ml @ 100 mls/hr IV.SIG Q8H [facility] Rx#:[id number] Oral 420 / 420 560 / 560 Other: # Voids 3 # Urine Diapers 3 Date of Last Bowel Movement 07/03/18 # Bowel Movements 0 <Abiodun Puente R - 07/04/18 13:42> Vital Signs 07/03/18 12:00 07/03/18 16:00 07/03/18 20:00 Temperature 97.6 F 97.8 F 97.7 F Pulse Rate 67 73 73 Respiratory Rate 16 17 18 Blood Pressure 105/66 112/53 L 115/56 L Pulse Oximetry 99 92 L 99 07/03/18 23:02 07/04/18 00:00 Temperature 97.9 F Pulse Rate 73 Respiratory Rate 18 17 Blood Pressure 100/53 L Pulse Oximetry 95 Intake & Output 07/03/18 07/04/18 07/04/18 18:59 06:59 18:59 Intake Total 520 / 520 660 / 660 Balance 520 / 520 660 / 660 Weight 61.6 kg Intake: IV 100 / 100 100 / 100 Ancef 2 GM Premix Inj 2 gm In 100 / 100 100 / 100 50 ml @ 100 mls/hr IV.SIG Q8H [facility] Rx#:[id number] Oral 420 / 420 560 / 560 Other: # Voids 3 # Urine Diapers 3 Date of Last Bowel Movement 07/03/18 # Bowel Movements 0 <Brenda Busch - 07/04/18 08:48> Narrative: GENERAL: female, laying in bed, in no acute distress. EYES: Pupils equal and round. No scleral icterus. No injection or drainage. CARDIOVASCULAR: Regular rate and rhythm, no murmurs, rubs, or gallops. RESPIRATORY: No accessory muscle use. Clear to auscultation. Breath sounds equal bilaterally. EXTREMITY: Left lateral hip incision healing well. NEUROLOGICAL: Awake and alert. <Brenda Busch - 07/04/18 11:16> Assessment and Plan - Assessment (1) Bacterial arthritis of right hip Code(s): M00.851 - Arthritis due to other bacteria, right hip Status: Acute (2) Anemia Code(s): D64.9 - Anemia, unspecified Status: Chronic (3) Polysubstance abuse Code(s): F19.10 - Other psychoactive substance abuse, uncomplicated Status: Chronic (4) Cachexia Code(s): R64 - Cachexia Status: Chronic (5) Hepatitis C Code(s): B19.20 - Unspecified viral hepatitis C without hepatic coma Status: Chronic (6) Nutrition, metabolism, and development symptoms Code(s): R63.8 - Other symptoms and signs concerning food and fluid intake Status: Acute <ReinaldopascualAbiodun R - 07/04/18 13:42> (1) Bacterial arthritis of right hip Code(s): M00.851 - Arthritis due to other bacteria, right hip Status: Acute Plan: Well healed incision. Patient ambulating well. Ancef (05/14 - 07/10). Follow labs while on IV Abx: weekly CBC, creatinine. Labs stable today. Continue pain management: Ibuprofen 800mg PO q8hr. Gabapentin 300mg PO TID. Decrease morphine dose from 1mg q8hr to 0.5 q8hr PRN Pain 7-10. Continue methadone PO 40mg daily. Patient to be discharged on methadone for pain control. She will follow-up with the methadone clinic on July 14. Hospital Course: S/p right proximal femur resection (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 Incision site closure with eh. [place] removed. Tissue culture from 05/16 negative for growth. PT following. (2) Anemia Code(s): D64.9 - Anemia, unspecified Status: Chronic Plan: Hemoglobin stable. Microcytic, likely secondary to iron deficiency. Continue daily ferrous sulfate. (3) Polysubstance abuse Code(s): F19.10 - Other psychoactive substance abuse, uncomplicated Status: Chronic Plan: Patient with history of IVDU (heroin, dilaudid, and other narcotics) and smoker. Continue methadone as above. Patient to be discharged on methadone. Patient has an appointment at the methadone clinic on July 14. Case management following. UDS 06/25/18 - negative. UDS 06/29/18 - negative. (4) Cachexia Code(s): R64 - Cachexia Status: Chronic Plan: Gaining weight. (5) Hepatitis C Code(s): B19.20 - Unspecified viral hepatitis C without hepatic coma Status: Chronic Plan: Patient with history of hepatitis C. Will require outpatient f/u and treatment. (6) Nutrition, metabolism, and development symptoms Code(s): R63.8 - Other symptoms and signs concerning food and fluid intake Status: Acute Plan: Fluid: Tolerating PO. Diet: Regular with supplementation. Electrolytes: Monitor and replete as necessary. <Brenda Busch - 07/04/18 11:07> - Assessment and Plan Discharge Planning: Antibiotic treatment to conclude 07/10/18. Discharge pending completion of antibiotic course. Patient has an appointment with the methadone clinic on July 14. <Brenda Busch - 07/04/18 11:16> - Attending Attestation This patient was seen and evaluated with the resident physician. I agree with the plan of care as discussed with me and documented in the resident note. Abiodun Puente MD <Abiodun Puente - 07/04/18 13:42>
[2018-07-04 09:14] LABS: Dimorphic RBC Present
[2018-07-04] MEDS: traZODone 50 MG Tablet PO PRN (22:43)
[2018-07-05] MEDS: ceFAZolin 2 GM Premix Inj 2 GM/50 ML PIGGYBACK IV.SIG SCH ×3 (05:58→20:46)
[2018-07-05] MEDS: Morphine Sulfate Inj 2 MG/ML Vial IV.PUSH PRN ×3 (05:58→23:29)
--- NOTE | 2018-07-05 08:48 | P.DCO ---
- Physical Therapy Order: Evaluate and treat - Occupational Therapy Order: Evaluate and treat - [employer] Order: To evaluate: Living conditions/environment - Case Management Consult Case Management Consult-Home Health: Yes - Certification I have seen patient Ana Laura Webster on 07/05/18. My clinical findings support the need for the requested home health care services because: Limited mobility due to disease progression, Deconditioned with increased weakness, Limited ability to care for self, High risk of falls I certify that my clinical findings support that this patient is homebound because: Post-op weakness, Unsteady gait/balance, Unsafe to leave home unassisted
[2018-07-05] MEDS: Senna/Docusate Sodium 8.6/50 MG Tablet PO SCH ×2 (08:56→20:46)
[2018-07-05] MEDS: Ferrous Sulfate 325 MG Tablet PO SCH (08:56)
[2018-07-05] MEDS: Gabapentin 300 MG Capsule PO SCH ×3 (08:56→17:10)
[2018-07-05] MEDS: Enoxaparin Inj 40 MG/0.4 ML Syringe SQ SCH (08:56)
--- NOTE | 2018-07-05 08:57 | P.PNFP ---
Subjective Interval history: Patient was seen and evaluated this morning. She reports "severe" pain, which kept her up all night. She attributes the pain to the morphine dosing decrease yesterday afternoon. The pain is located in and around her right hip; she describes the pain as an ache, worse with movement. Patient denies chest pain, shortness of breath, nausea, vomiting, diarrhea and constipation. All questions were answered. <Debotc Raysa Jaquezin - 07/05/18 08:56> Results - Labs Result diagrams: 07/04/18 06:22 07/04/18 06:22 <Mary Ann Alfaro - 07/05/18 10:50> Abnormal lab results 07/04/18 Range/Units 06:22 Dimorphic RBCs Present H (None) <Angleine Kirk - 07/05/18 08:56> Physical Exam Vital signs: Vital Signs 07/04/18 12:00 07/04/18 13:30 07/04/18 16:00 Temperature 97.6 F 97.7 F 98 F Pulse Rate 87 87 65 Respiratory Rate 17 16 16 Blood Pressure 106/63 106/63 119/55 L Pulse Oximetry 95 96 95 07/04/18 20:00 07/05/18 00:00 07/05/18 08:55 Temperature 97.9 F 98.0 F Pulse Rate 64 65 Respiratory Rate 18 18 Blood Pressure 126/59 L 115/63 129/69 Pulse Oximetry 97 94 L Intake & Output 07/04/18 07/05/18 07/05/18 18:59 06:59 18:59 Intake Total 430 / 430 50 / 50 50 / 50 Balance 430 / 430 50 / 50 50 / 50 Weight 61.1 kg Intake: IV 50 / 50 50 / 50 50 / 50 Ancef 2 GM Premix Inj 2 gm In 50 / 50 50 / 50 50 / 50 50 ml @ 100 mls/hr IV.SIG Q8H [facility] Rx#:[id number] Oral 380 / 380 Other: # Voids 2 # Urine Diapers 1 Date of Last Bowel Movement 07/03/18 <Mary Ann Alfaro - 07/05/18 10:50> Vital Signs 07/04/18 12:00 07/04/18 13:30 07/04/18 16:00 Temperature 97.6 F 97.7 F 98 F Pulse Rate 87 87 65 Respiratory Rate 17 16 16 Blood Pressure 106/63 106/63 119/55 L Pulse Oximetry 95 96 95 07/04/18 20:00 07/05/18 00:00 Temperature 97.9 F 98.0 F Pulse Rate 64 65 Respiratory Rate 18 18 Blood Pressure 126/59 L 115/63 Pulse Oximetry 97 94 L Intake & Output 07/04/18 07/05/18 07/05/18 18:59 06:59 18:59 Intake Total 430 / 430 50 / 50 Balance 430 / 430 50 / 50 Weight 61.1 kg Intake: IV 50 / 50 50 / 50 Ancef 2 GM Premix Inj 2 gm In 50 / 50 50 / 50 50 ml @ 100 mls/hr IV.SIG Q8H [facility] Rx#:[id number] Oral 380 / 380 Other: # Voids 2 # Urine Diapers 1 Date of Last Bowel Movement 07/03/18 <Angeline Kirk - 07/05/18 08:56> Narrative: GENERAL: female, laying in bed, appears to be uncomfortable. EYES: Pupils equal and round. No scleral icterus. No injection or drainage. CARDIOVASCULAR: Regular rate and rhythm, no murmurs, rubs, or gallops. RESPIRATORY: No accessory muscle use. Clear to auscultation. Breath sounds equal bilaterally. EXTREMITY: Left lateral hip incision healing well. NEUROLOGICAL: Awake and alert. <Angeline Kirk - 07/05/18 08:56> Assessment and Plan - Assessment (1) Bacterial arthritis of right hip Code(s): M00.851 - Arthritis due to other bacteria, right hip Status: Acute (2) Anemia Code(s): D64.9 - Anemia, unspecified Status: Chronic (3) Polysubstance abuse Code(s): F19.10 - Other psychoactive substance abuse, uncomplicated Status: Chronic (4) Cachexia Code(s): R64 - Cachexia Status: Chronic (5) Hepatitis C Code(s): B19.20 - Unspecified viral hepatitis C without hepatic coma Status: Chronic (6) Nutrition, metabolism, and development symptoms Code(s): R63.8 - Other symptoms and signs concerning food and fluid intake Status: Acute <Mary Ann Alfaro - 07/05/18 10:50> (1) Bacterial arthritis of right hip Code(s): M00.851 - Arthritis due to other bacteria, right hip Status: Acute Plan: Well healed incision. Patient ambulating well. Ancef (05/14 - 07/10). Follow labs while on IV Abx: weekly CBC, creatinine. Continue pain management: Ibuprofen 800mg PO q8hr. Gabapentin 300mg PO TID. Continue morphine 0.5mg q8hr PRN Pain 7-10. Increase methadone from 40mg PO to 50mg PO daily. Patient to be discharged on methadone for pain control. She will follow-up with the methadone clinic on July 14. PT recommends home with home health PT. Case management consulted. Hospital Course: S/p right proximal femur resection (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 Incision site closure with eh. [place] removed. Tissue culture from 05/16 negative for growth. PT following. (2) Anemia Code(s): D64.9 - Anemia, unspecified Status: Chronic Plan: Hemoglobin stable. Microcytic, likely secondary to iron deficiency. Continue daily ferrous sulfate. (3) Polysubstance abuse Code(s): F19.10 - Other psychoactive substance abuse, uncomplicated Status: Chronic Plan: Patient with history of IVDU (heroin, dilaudid, and other narcotics) and smoker. Continue methadone as above. Patient to be discharged on methadone. Patient has an appointment at the methadone clinic on July 14. Case management following. UDS 06/25/18 - negative. UDS 06/29/18 - negative. (4) Cachexia Code(s): R64 - Cachexia Status: Chronic Plan: Gaining weight. (5) Hepatitis C Code(s): B19.20 - Unspecified viral hepatitis C without hepatic coma Status: Chronic Plan: Patient with history of hepatitis C. Will require outpatient f/u and treatment. (6) Nutrition, metabolism, and development symptoms Code(s): R63.8 - Other symptoms and signs concerning food and fluid intake Status: Acute Plan: Fluid: Tolerating PO. Diet: Regular with supplementation. Electrolytes: Monitor and replete as necessary. <Angeline Kirk - 07/05/18 08:48> - Assessment and Plan Discharge Planning: Antibiotic treatment to conclude 07/10/18. Discharge pending completion of antibiotic course. <Angeline Kirk - 07/05/18 08:56> - Attending Attestation This patient was seen and examined. The assessment and plan was discussed with the resident physician and I am in agreement with continued medical care as documented in this encounter. MARY ANN ALFARO MD <Mary Ann Alfaro - 07/05/18 10:50>
[2018-07-05] MEDS: Methadone 10 MG Tablet PO SCH (09:45)
[2018-07-05] MEDS: traZODone 50 MG Tablet PO PRN (23:29)
[2018-07-06] MEDS: ceFAZolin 2 GM Premix Inj 2 GM/50 ML PIGGYBACK IV.SIG SCH ×3 (05:21→20:29)
[2018-07-06] MEDS: Senna/Docusate Sodium 8.6/50 MG Tablet PO SCH ×2 (08:16→20:28)
[2018-07-06] MEDS: Methadone 10 MG Tablet PO SCH (08:16)
[2018-07-06] MEDS: Ferrous Sulfate 325 MG Tablet PO SCH (08:17)
[2018-07-06] MEDS: Gabapentin 300 MG Capsule PO SCH ×3 (08:17→17:38)
[2018-07-06] MEDS: Enoxaparin Inj 40 MG/0.4 ML Syringe SQ SCH (08:17)
[2018-07-06] MEDS: Morphine Sulfate Inj 2 MG/ML Vial IV.PUSH PRN ×2 (08:24→16:40)
[2018-07-06 08:40] LABS: Amphetamine Screen,Urine Neg (Neg); Barbiturate Screen,Urine Neg (Neg); Cannabinoid Screen,Urine Neg (Neg); Cocaine Screen,Urine Neg (Neg)
[2018-07-06 08:41] LABS: Opiate Screen,Urine Neg (Neg)
--- NOTE | 2018-07-06 10:02 | P.PNFP ---
Subjective Interval history: Patient was seen and evaluated this morning. She reports sleeping more last night but continues to experience some pain. When discussing a morphine dosing change, she asks for the morphine to be stopped altogether tonight. She understands that the methadone dosing will remain as is. She denies chest pain, shortness of breath, nausea, vomiting, diarrhea and constipation. All questions were answered. <Alexis Angeline Jaquez - 07/06/18 09:58> Results - Labs Result diagrams: 07/04/18 06:22 07/04/18 06:22 <Tip Garsia - 07/06/18 10:21> Physical Exam Vital signs: Vital Signs 07/05/18 12:00 07/05/18 15:14 07/05/18 16:00 Temperature 98.4 F 97.7 F Pulse Rate 59 L 72 Respiratory Rate 16 17 17 Blood Pressure 116/56 L 105/56 L Pulse Oximetry 97 97 07/05/18 20:00 07/05/18 23:31 07/05/18 23:59 Temperature 98.0 F Pulse Rate 75 Respiratory Rate 18 18 18 Blood Pressure 113/57 L Pulse Oximetry 98 07/06/18 00:00 07/06/18 08:00 Temperature 97.7 F 97.9 F Pulse Rate 79 55 L Respiratory Rate 17 17 Blood Pressure 102/60 125/59 L Pulse Oximetry 96 98 Intake & Output 07/05/18 07/06/18 07/06/18 18:59 06:59 18:59 Intake Total 770 / 770 680 / 680 Balance 770 / 770 680 / 680 Weight 60 kg Intake: IV 100 / 100 100 / 100 Ancef 2 GM Premix Inj 2 gm In 100 / 100 100 / 100 50 ml @ 100 mls/hr IV.SIG Q8H [facility] Rx#:[id number] Oral 670 / 670 580 / 580 Other: # Voids 3 3 Date of Last Bowel Movement 07/03/18 <Tip Garsia - 07/06/18 10:21> Vital Signs 07/05/18 12:00 07/05/18 15:14 07/05/18 16:00 Temperature 98.4 F 97.7 F Pulse Rate 59 L 72 Respiratory Rate 16 17 17 Blood Pressure 116/56 L 105/56 L Pulse Oximetry 97 97 07/05/18 20:00 07/05/18 23:31 07/05/18 23:59 Temperature 98.0 F Pulse Rate 75 Respiratory Rate 18 18 18 Blood Pressure 113/57 L Pulse Oximetry 98 07/06/18 00:00 Temperature 97.7 F Pulse Rate 79 Respiratory Rate 17 Blood Pressure 102/60 Pulse Oximetry 96 Intake & Output 07/05/18 07/06/18 07/06/18 18:59 06:59 18:59 Intake Total 770 / 770 680 / 680 Balance 770 / 770 680 / 680 Weight 60 kg Intake: IV 100 / 100 100 / 100 Ancef 2 GM Premix Inj 2 gm In 100 / 100 100 / 100 50 ml @ 100 mls/hr IV.SIG Q8H [facility] Rx#:[id number] Oral 670 / 670 580 / 580 Other: # Voids 3 3 Date of Last Bowel Movement 07/03/18 <Angeline Kirk - 07/06/18 09:58> Narrative: GENERAL: female, laying in bed, appears comfortable. EYES: Pupils equal and round. No scleral icterus. No injection or drainage. CARDIOVASCULAR: Regular rate and rhythm, no murmurs, rubs, or gallops. RESPIRATORY: No accessory muscle use. Clear to auscultation. Breath sounds equal bilaterally. EXTREMITY: Left lateral hip incision healing well. NEUROLOGICAL: Awake and alert. <Angeline Kirk - 07/06/18 09:58> Assessment and Plan - Assessment (1) Bacterial arthritis of right hip Code(s): M00.851 - Arthritis due to other bacteria, right hip Status: Acute (2) Anemia Code(s): D64.9 - Anemia, unspecified Status: Chronic (3) Polysubstance abuse Code(s): F19.10 - Other psychoactive substance abuse, uncomplicated Status: Chronic (4) Cachexia Code(s): R64 - Cachexia Status: Chronic (5) Hepatitis C Code(s): B19.20 - Unspecified viral hepatitis C without hepatic coma Status: Chronic (6) Nutrition, metabolism, and development symptoms Code(s): R63.8 - Other symptoms and signs concerning food and fluid intake Status: Acute <Tip Garsia - 07/06/18 10:21> (1) Bacterial arthritis of right hip Code(s): M00.851 - Arthritis due to other bacteria, right hip Status: Acute Plan: Well healed incision. Patient ambulating well. Ancef (05/14 - 07/10). Follow labs while on IV Abx: weekly CBC, creatinine. Continue pain management: Ibuprofen 800mg PO q8hr. Gabapentin 300mg PO TID. Discontinue morphine. Continue methadone 50mg PO daily. Patient to be discharged on methadone for pain control. She will follow-up with the methadone clinic on July 14. PT recommends home with home health PT. Case management consulted. Hospital Course: S/p right proximal femur resection (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 Incision site closure with eh. [place] removed. Tissue culture from 05/16 negative for growth. PT following. (2) Anemia Code(s): D64.9 - Anemia, unspecified Status: Chronic Plan: Hemoglobin stable. Microcytic, likely secondary to iron deficiency. Continue daily ferrous sulfate. (3) Polysubstance abuse Code(s): F19.10 - Other psychoactive substance abuse, uncomplicated Status: Chronic Plan: Patient with history of IVDU (heroin, dilaudid, and other narcotics) and smoker. Continue methadone as above. Patient to be discharged on methadone. Patient has an appointment at the methadone clinic on July 14. Case management following. UDS 06/25/18 - negative. UDS 06/29/18 - negative. UDS 07/06/18 - pending. (4) Cachexia Code(s): R64 - Cachexia Status: Chronic Plan: Gaining weight. (5) Hepatitis C Code(s): B19.20 - Unspecified viral hepatitis C without hepatic coma Status: Chronic Plan: Patient with history of hepatitis C. Will require outpatient f/u and treatment. (6) Nutrition, metabolism, and development symptoms Code(s): R63.8 - Other symptoms and signs concerning food and fluid intake Status: Acute Plan: Fluid: Tolerating PO. Diet: Regular with supplementation. Electrolytes: Monitor and replete as necessary. <Angeline Kirk - 07/06/18 09:49> - Assessment and Plan Discharge Planning: Antibiotic treatment to conclude 07/10/18. Discharge pending completion of antibiotic course. <Angeline Kirk - 07/06/18 09:58> - Attending Attestation The exam, history, and the medical decision-making described in the above note were completed with the assistance of the resident physician. I reviewed and agree with the findings presented. I attest that I had a [id number] encounter with the patient on the same day, and personally performed and documented my assessment and findings in the medical record. Ambulating, eager to go home. coherent conversation. will stay with mother for a while after she leaves. mild tenderness over R ASIS today. Will work to ensure everything is set up for discharge when her abx course is completed. <Tip Garsia - 07/06/18 10:21>
[2018-07-06 13:08] LABS: Amphetamine Screen,Urine Neg (Neg); Barbiturate Screen,Urine Neg (Neg); Cannabinoid Screen,Urine Neg (Neg); Cocaine Screen,Urine Neg (Neg)
[2018-07-06 13:13] LABS: Opiate Screen,Urine Neg (Neg)
[2018-07-06] MEDS: traZODone 50 MG Tablet PO PRN (23:59)
[2018-07-07] MEDS: ceFAZolin 2 GM Premix Inj 2 GM/50 ML PIGGYBACK IV.SIG SCH ×3 (05:07→21:28)
[2018-07-07] MEDS: Gabapentin 300 MG Capsule PO SCH ×3 (09:21→17:36)
[2018-07-07] MEDS: Enoxaparin Inj 40 MG/0.4 ML Syringe SQ SCH (09:21)
[2018-07-07] MEDS: Ferrous Sulfate 325 MG Tablet PO SCH (09:21)
[2018-07-07] MEDS: Senna/Docusate Sodium 8.6/50 MG Tablet PO SCH ×2 (09:21→21:29)
[2018-07-07] MEDS: Methadone 10 MG Tablet PO SCH (09:21)
--- NOTE | 2018-07-07 12:30 | P.PNFP ---
Subjective Interval history: Patient reports feeling tired, worn down, but otherwise feels well. She reports that she has done well with the decreased dose of pain medication. She is requesting discharge on Saturday night because her sister is leaving for a long drive on at 4 am in the morning. <Tip Balderas A - 07/07/18 12:40> Results - Labs Result diagrams: 07/04/18 06:22 07/04/18 06:22 <Tip Garsia - 07/07/18 16:31> Physical Exam Vital signs: Vital Signs 07/06/18 20:00 07/07/18 00:00 07/07/18 00:29 Temperature 97.5 F L 98.0 F Pulse Rate 72 70 Respiratory Rate 20 16 18 Blood Pressure 115/55 L 128/58 L Pulse Oximetry 96 97 07/07/18 08:00 07/07/18 12:00 07/07/18 16:00 Temperature 97.3 F L 97.5 F L 97.2 F L Pulse Rate 67 59 L 117 H Respiratory Rate 16 16 17 Blood Pressure 117/58 L 106/59 L 105/69 Pulse Oximetry 94 L 93 L 95 Intake & Output 07/06/18 07/07/18 07/07/18 18:59 06:59 18:59 Intake Total 650 / 650 860 / 860 50 / 50 Balance 650 / 650 860 / 860 50 / 50 Weight 60 kg Intake: IV 50 / 50 100 / 100 50 / 50 Ancef 2 GM Premix Inj 2 gm In 50 / 50 100 / 100 50 / 50 50 ml @ 100 mls/hr IV.SIG Q8H [facility] Rx#:[id number] Oral 600 / 600 760 / 760 Other: # Voids 4 3 Date of Last Bowel Movement 07/03/18 07/06/18 07/06/18 # Bowel Movements 1 <Tip Garsia - 07/07/18 16:31> Vital Signs 07/06/18 16:00 07/06/18 20:00 07/07/18 00:00 Temperature 97.4 F L 97.5 F L 98.0 F Pulse Rate 77 72 70 Respiratory Rate 19 20 16 Blood Pressure 118/60 115/55 L 128/58 L Pulse Oximetry 97 96 97 07/07/18 00:29 07/07/18 08:00 07/07/18 12:00 Temperature 97.3 F L 97.5 F L Pulse Rate 67 59 L Respiratory Rate 18 16 16 Blood Pressure 117/58 L 106/59 L Pulse Oximetry 94 L 93 L Intake & Output 07/06/18 07/07/18 07/07/18 18:59 06:59 18:59 Intake Total 650 / 650 860 / 860 Balance 650 / 650 860 / 860 Weight 60 kg Intake: IV 50 / 50 100 / 100 Ancef 2 GM Premix Inj 2 gm In 50 / 50 100 / 100 50 ml @ 100 mls/hr IV.SIG Q8H [facility] Rx#:[id number] Oral 600 / 600 760 / 760 Other: # Voids 4 3 Date of Last Bowel Movement 07/03/18 07/06/18 07/06/18 # Bowel Movements 1 <Tip Balderas - 07/07/18 12:30> Narrative: GENERAL: female, laying in bed, appears comfortable. EYES: Pupils equal and round. No scleral icterus. No injection or drainage. CARDIOVASCULAR: Regular rate and rhythm, no murmurs, rubs, or gallops. RESPIRATORY: No accessory muscle use. Clear to auscultation. Breath sounds equal bilaterally. EXTREMITY: Left lateral hip incision healing well. NEUROLOGICAL: Awake and alert. <Tip Balderas - 07/07/18 12:40> Assessment and Plan - Assessment (1) Bacterial arthritis of right hip Code(s): M00.851 - Arthritis due to other bacteria, right hip Status: Acute (2) Anemia Code(s): D64.9 - Anemia, unspecified Status: Chronic (3) Polysubstance abuse Code(s): F19.10 - Other psychoactive substance abuse, uncomplicated Status: Chronic (4) Cachexia Code(s): R64 - Cachexia Status: Chronic (5) Hepatitis C Code(s): B19.20 - Unspecified viral hepatitis C without hepatic coma Status: Chronic (6) Nutrition, metabolism, and development symptoms Code(s): R63.8 - Other symptoms and signs concerning food and fluid intake Status: Acute <Tip Garsia - 07/07/18 16:31> (1) Bacterial arthritis of right hip Code(s): M00.851 - Arthritis due to other bacteria, right hip Status: Acute Plan: Well healed incision. Patient ambulating well. Ancef (05/14 - 07/10). Follow labs while on IV Abx: weekly CBC, creatinine. Continue pain management: Ibuprofen 800mg PO q8hr. Gabapentin 300mg PO TID. Discontinue morphine. Continue methadone 50mg PO daily. Patient to be discharged on methadone for pain control. She will follow-up with the methadone clinic on July 14. PT recommends home with home health PT. Case management consulted. Hospital Course: S/p right proximal femur resection (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 Incision site closure with eh. [place] removed. Tissue culture from 05/16 negative for growth. PT following. (2) Anemia Code(s): D64.9 - Anemia, unspecified Status: Chronic Plan: Hemoglobin stable. Microcytic, likely secondary to iron deficiency. Continue daily ferrous sulfate. (3) Polysubstance abuse Code(s): F19.10 - Other psychoactive substance abuse, uncomplicated Status: Chronic Plan: Patient with history of IVDU (heroin, dilaudid, and other narcotics) and smoker. Continue methadone as above. Patient to be discharged on methadone. Patient has an appointment at the methadone clinic on July 14. Case management following. UDS 06/25/18 - negative. UDS 06/29/18 - negative. UDS 07/06/18 - negative. (4) Cachexia Code(s): R64 - Cachexia Status: Chronic Plan: Gaining weight. (5) Hepatitis C Code(s): B19.20 - Unspecified viral hepatitis C without hepatic coma Status: Chronic Plan: Patient with history of hepatitis C. Will require outpatient f/u and treatment. (6) Nutrition, metabolism, and development symptoms Code(s): R63.8 - Other symptoms and signs concerning food and fluid intake Status: Acute Plan: Fluid: Tolerating PO. Diet: Regular with supplementation. Electrolytes: Monitor and replete as necessary. <Tip Balderas 07/07/18 12:31> - Assessment and Plan Will discuss discharge planning with infectious disease team. <Tip Balderas 07/07/18 12:40> Discussed Condition With: Dr. Garsia, Dr. Arrington <Tip Balderas 07/07/18 12:40> - Attending Attestation The exam, history, and the medical decision-making described in the above note were completed with the assistance of the resident physician. I reviewed and agree with the findings presented. I attest that I had a [id number] encounter with the patient on the same day, and personally performed and documented my assessment and findings in the medical record. Pain controlled ok, no new complaints. Patient has actually been on about 7 wks IV therapy and last ID recs were for 6- 8 weeks and they have signed off. From my standpoint could d/c tomorrow if repeat labs ok then. As she has been on methadone chronically now, we will need to write her for enough to make it to her methadone clinic appointment when she leavess. <Tip Garsia - 07/07/18 16:31>
[2018-07-08] MEDS: traZODone 50 MG Tablet PO PRN (00:03)
[2018-07-08] MEDS: ceFAZolin 2 GM Premix Inj 2 GM/50 ML PIGGYBACK IV.SIG SCH (06:05)
--- NOTE | 2018-07-08 08:19 | P.PNFP ---
Subjective Interval history: Patient was seen and evaluated this morning. She reports some lower extremity muscle soreness but otherwise feels well. She denies chest pain, shortness of breath, nausea, vomiting, diarrhea and constipation. Patient has been working on walking up stairs with PT but states that steps at her mom's house have not yet been fixed so she plans to "butt-scoot" into the house. Patient has her Social Security appointment this morning at 10:30. All questions were answered. <Angeline Kirk - 07/08/18 08:19> Results - Labs Result diagrams: 07/08/18 09:07 07/08/18 09:07 <Tip Garsia - 07/08/18 11:38> Abnormal lab results 07/08/18 07/08/18 Range/Units 09:07 09:07 WBC 3.4 L (4.0-11.0) th/mm3 MCV 78.1 L (80.0-100.0) fL MCH 26.2 L (27.0-34.0) pg RDW 22.4 H (11.6-17.2) % Park % (Auto) 10.3 H (0.0-8.0) % Eos % (Auto) 5.4 H (0.0-4.0) % Neut # (Auto) 1.4 L (1.8-7.7) th/mm3 BUN 21 H (7-18) mg/dL AST 194 H (15-37) U/L ALT 142 H (10-53) U/L Alkaline Phosphatase 136 H (45-117) U/L Total Protein 9.0 H (6.4-8.2) g/dL Short CBC 07/08/18 Range/Units 09:07 WBC 3.4 L (4.0-11.0) th/mm3 Hgb 12.0 (11.6-15.3) gm/dL Hct 35.6 (35.0-46.0) % Plt Count 192 (150-450) th/mm3 BMP 07/08/18 09:07 Sodium 139 Potassium 4.2 Chloride 101 Carbon Dioxide 31.7 BUN 21 H Creatinine 0.71 Calcium 9.7 Liver Function 07/08/18 Range/Units 09:07 Total Bilirubin 0.4 (0.2-1.0) mg/dL AST 194 H (15-37) U/L ALT 142 H (10-53) U/L Alkaline Phosphatase 136 H (45-117) U/L Albumin 3.7 (3.4-5.0) g/dL <Tip Garsia K - 07/08/18 11:38> Physical Exam Vital signs: Vital Signs 07/07/18 12:00 07/07/18 16:00 07/07/18 20:00 Temperature 97.5 F L 97.2 F L 97.9 F Pulse Rate 59 L 117 H 75 Respiratory Rate 16 17 18 Blood Pressure 106/59 L 105/69 140/57 L Pulse Oximetry 93 L 95 97 07/08/18 00:00 07/08/18 08:00 Temperature 98.4 F 97.7 F Pulse Rate 68 58 L Respiratory Rate 18 17 Blood Pressure 111/91 H 117/69 Pulse Oximetry 98 99 Intake & Output 07/07/18 07/08/18 07/08/18 18:59 06:59 18:59 Intake Total 1550 / 1550 103 / 103 Balance 1550 / 1550 103 / 103 Weight 60 kg Intake: IV 50 / 50 100 / 100 Ancef 2 GM Premix Inj 2 gm In 50 / 50 100 / 100 50 ml @ 100 mls/hr IV.SIG Q8H [facility] Rx#:[id number] Oral 1500 / 1500 Oral Supplement 3 / Other: # Voids 4 3 Date of Last Bowel Movement 07/06/18 07/06/18 # Bowel Movements 1 1 <Tip Garsia K - 07/08/18 11:38> Vital Signs 07/07/18 12:00 07/07/18 16:00 07/07/18 20:00 Temperature 97.5 F L 97.2 F L 97.9 F Pulse Rate 59 L 117 H 75 Respiratory Rate 16 17 18 Blood Pressure 106/59 L 105/69 140/57 L Pulse Oximetry 93 L 95 97 07/08/18 00:00 07/08/18 08:00 Temperature 98.4 F 97.7 F Pulse Rate 68 58 L Respiratory Rate 18 17 Blood Pressure 111/91 H 117/69 Pulse Oximetry 98 99 Intake & Output 07/07/18 07/08/18 07/08/18 18:59 06:59 18:59 Intake Total 1550 / 1550 103 / 103 Balance 1550 / 1550 103 / 103 Weight 60 kg Intake: IV 50 / 50 100 / 100 Ancef 2 GM Premix Inj 2 gm In 50 / 50 100 / 100 50 ml @ 100 mls/hr IV.SIG Q8H [facility] Rx#:[id number] Oral 1500 / 1500 Oral Supplement 3 Other: # Voids 4 3 Date of Last Bowel Movement 07/06/18 07/06/18 # Bowel Movements 1 1 <Angeline Kirk - 07/08/18 08:19> Narrative: GENERAL: female, laying in bed, appears comfortable. EYES: Pupils equal and round. No scleral icterus. No injection or drainage. CARDIOVASCULAR: Regular rate and rhythm, no murmurs, rubs, or gallops. RESPIRATORY: No accessory muscle use. Clear to auscultation. Breath sounds equal bilaterally. EXTREMITY: Left lateral hip incision healing well. NEUROLOGICAL: Awake and alert. <Angeline Kirk - 07/08/18 08:19> Assessment and Plan - Assessment (1) Bacterial arthritis of right hip Code(s): M00.851 - Arthritis due to other bacteria, right hip Status: Acute (2) Anemia Code(s): D64.9 - Anemia, unspecified Status: Chronic (3) Polysubstance abuse Code(s): F19.10 - Other psychoactive substance abuse, uncomplicated Status: Chronic (4) Cachexia Code(s): R64 - Cachexia Status: Chronic (5) Hepatitis C Code(s): B19.20 - Unspecified viral hepatitis C without hepatic coma Status: Chronic (6) Nutrition, metabolism, and development symptoms Code(s): R63.8 - Other symptoms and signs concerning food and fluid intake Status: Acute <Tip Garsia Laurie - 07/08/18 11:38> (1) Bacterial arthritis of right hip Code(s): M00.851 - Arthritis due to other bacteria, right hip Status: Acute Plan: Well healed incision. Patient ambulating well. Ancef (05/14 - 07/08). Follow labs while on IV Abx: * Transaminitis today. May be secondary to Ancef. Continue pain management: Ibuprofen 800mg PO q8hr. Gabapentin 300mg PO TID. Continue methadone 50mg PO daily. Patient to be discharged on methadone for pain control. She will follow-up with the methadone clinic on July 14. PT recommends home with home health PT. Case management consulted. Hospital Course: S/p right proximal femur resection (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 Incision site closure with eh. [place] removed. Tissue culture from 05/16 negative for growth. PT following. (2) Anemia Code(s): D64.9 - Anemia, unspecified Status: Chronic Plan: Hemoglobin stable. Microcytic, likely secondary to iron deficiency. Continue daily ferrous sulfate. (3) Polysubstance abuse Code(s): F19.10 - Other psychoactive substance abuse, uncomplicated Status: Chronic Plan: Patient with history of IVDU (heroin, dilaudid, and other narcotics) and smoker. Continue methadone as above. Patient to be discharged on methadone. Patient has an appointment at the methadone clinic on July 14. Case management following. UDS 06/25/18 - negative. UDS 06/29/18 - negative. UDS 07/06/18 - negative. (4) Cachexia Code(s): R64 - Cachexia Status: Chronic Plan: Gaining weight. (5) Hepatitis C Code(s): B19.20 - Unspecified viral hepatitis C without hepatic coma Status: Chronic Plan: Patient with history of hepatitis C. Will require outpatient f/u and treatment. (6) Nutrition, metabolism, and development symptoms Code(s): R63.8 - Other symptoms and signs concerning food and fluid intake Status: Acute Plan: Fluid: Tolerating PO. Diet: Regular with supplementation. Electrolytes: Monitor and replete as necessary. <Angeline Kirk - 07/08/18 10:51> - Assessment and Plan Discharge tomorrow. <Angeline Kirk - 07/08/18 11:01> Discharge Planning: Antibiotic treatment to conclude 07/10/18. Discharge pending completion of antibiotic course. <Angeline Kirk - 07/08/18 08:19> - Attending Attestation The exam, history, and the medical decision-making described in the above note were completed with the assistance of the resident physician. I reviewed and agree with the findings presented. I attest that I had a [id number] encounter with the patient on the same day, and personally performed and documented my assessment and findings in the medical record. Patient very eager to leave. no new complaints. doing well on current methadone dose. Unfortunately has transaminitis today, but known hepC likely the cause. She has been on antibiotic therapy now for 2 days short of 8 weeks and ID was recommending 6-8 wks of therapy while they were caring for her. has SS phone appt today. will see how that goes and address and final discharge concerns. Recheck LFTs tomorrow after stopping abx therapy and make sure they are stable for outpatient follow up of her hepC. As she has already been started on methadone for chronic pain, I will send her with an Rx of methadone to be sufficient to make it to her methadone appointment. d/w resident team, hopeful d/c tomorrow. <Tip Garsia - 07/08/18 11:38>
[2018-07-08 09:28] LABS: Hematocrit 35.6 % (35.0-46.0); Lymph % (Auto) 42.3 % (9.0-44.0); Mean Corpuscular HGB Conc 33.5 % (32.0-36.0); Mean Corpuscular Hemoglobin 26.2 pg (27.0-34.0); Mean Corpuscular Volume 78.1 fL (80.0-100.0); Mean Platelet Volume 8.1 fL (7.0-11.0); Neut % (Auto) 40.6 % (16.0-70.0); Platelet Count 192 th/mm3 (150-450); Red Blood Count 4.56 mil/mm3 (4.00-5.30); Red Cell Distribution Width 22.4 % (11.6-17.2); White Blood Count 3.4 th/mm3 (4.0-11.0)
[2018-07-08 09:29] LABS: Baso % (Auto) 1.4 % (0.0-2.0); Eos # (Auto) 0.2 th/mm3 (0.0-0.4); Eos % (Auto) 5.4 % (0.0-4.0); Lymph # (Auto) 1.4 th/mm3 (1.0-4.8); Mono # (Auto) 0.4 th/mm3 (0.0-0.9); Mono % (Auto) 10.3 % (0.0-8.0); Neut # (Auto) 1.4 th/mm3 (1.8-7.7)
[2018-07-08 09:53] LABS: Albumin 3.7 g/dL (3.4-5.0); Anion Gap 6 meq/L (5-15); Aspartate Aminotransferase 194 U/L (15-37); Blood Urea Nitrogen 21 mg/dL (7-18); Calcium 9.7 mg/dL (8.5-10.1); Carbon Dioxide 31.7 meq/L (21.0-32.0); Chloride 101 meq/L (98-107); Glomerular Filtration Rate Greater Than 89 mL/min (>89); Glucose,Random 103 mg/dL (74-106); Potassium 4.2 meq/L (3.5-5.1); Sodium 139 meq/L (136-145)
[2018-07-08 09:56] LABS: Alanine Aminotransferase 142 U/L (10-53); Alkaline Phosphatase 136 U/L (45-117)
[2018-07-08] MEDS: Gabapentin 300 MG Capsule PO SCH ×2 (11:12→13:59)
[2018-07-08] MEDS: Senna/Docusate Sodium 8.6/50 MG Tablet PO SCH (11:13)
[2018-07-08] MEDS: Methadone 10 MG Tablet PO SCH (11:13)
[2018-07-08] MEDS: Ferrous Sulfate 325 MG Tablet PO SCH (11:13)
[2018-07-08] MEDS: Enoxaparin Inj 40 MG/0.4 ML Syringe SQ SCH (14:02)
[2018-07-08 15:15] VITALS: BP 124/56; PULSE 89; RESP 16; TEMP 97.5; O2SAT 96
== END 2018-07-08 17:35 | disposition home or self-care (01) | DRG 871 ==
LOC: N07 18:59
PROVIDERS: ADMIT Family Medicine; ATTEND Family Medicine
CPT/HCPCS: 76937; 80048; 80053; 80307; 81001; 82948; 82962; 83036; 85025; 85027; 85651; 85652; 86140; 87040; 93005; 93971; 97110; 97116; 97162; 97530; J0690; J1650; J1815; J2270; J7030